=== PATIENT | male | born 1945 | race Caucasian/White ===

== ENCOUNTER → 2017-06-30 14:25 | Outpatient (CLI) | payer MEDICARE, OTHER, SELFPAY ==
[2017-06-30 15:32] LABS: PSA,Total - Annual Screen 1.02 ng/mL (0.00-4.00)
== END ==
PROVIDERS: Family Provider Family Medicine; PCP Family Medicine; Visit Provider Urology
DX: Z12.5 Encounter for screening for malignant neoplasm of prostate (principal)
CPT/HCPCS: 36415; 84153; G0103

== ENCOUNTER → 2017-10-31 08:53 | Outpatient (CLI) | payer MEDICARE, OTHER, SELFPAY ==
[2017-10-31 10:05] LABS: AST(SGOT) 36 U/L (15-37); Alanine Aminotransfer ALT/SGPT 41 U/L (16-61); Albumin, Serum 3.8 g/dL (3.2-5.0); Alkaline Phosphatase 71 U/L (45-117); Bilirubin, Direct 0.21 mg/dL (0.00-0.30); Cholesterol 149 mg/dL (200); Globulin 3.3 g/dL (2.2-4.2); High Density Lipoprotein 45 mg/dL; Protein, Total 7.1 g/dL (6.4-8.2); Triglycerides 84 mg/dL; Very Low Density Lipoprotein 17 mg/dL (5-40)
== END ==
PROVIDERS: Family Provider Family Medicine; PCP Family Medicine; Visit Provider Internal Medicine Cardiovascular Disease
DX: E78.5 Hyperlipidemia, unspecified (principal); Z79.899 Other long term (current) drug therapy
CPT/HCPCS: 36415; 80061; 80076

== ENCOUNTER → 2018-05-01 10:01 | Outpatient (CLI) | payer MEDICARE, OTHER, SELFPAY ==
[2018-03-29 13:53] VITALS: BMI 24.0
[2018-05-01 11:38] LABS: AST(SGOT) 34 U/L (15-37); Alanine Aminotransfer ALT/SGPT 40 U/L (16-61); Albumin, Serum 3.9 g/dL (3.2-5.0); Alkaline Phosphatase 78 U/L (45-117); Bilirubin, Direct 0.32 mg/dL (0.00-0.30); Cholesterol 143 mg/dL (200); Globulin 3.1 g/dL (2.2-4.2); High Density Lipoprotein 45 mg/dL; Triglycerides 94 mg/dL; Very Low Density Lipoprotein 19 mg/dL (5-40)
== END ==
PROVIDERS: Family Provider Family Medicine; PCP Family Medicine; Referring Provider Internal Medicine Cardiovascular Disease; Visit Provider Internal Medicine Cardiovascular Disease
DX: E78.5 Hyperlipidemia, unspecified (principal)
CPT/HCPCS: 36415; 80061; 80076

== ENCOUNTER → 2018-08-11 10:06 | Outpatient (CLI) | payer MEDICARE, OTHER, SELFPAY ==
[2018-06-04 09:50] VITALS: BMI 24.0
--- NOTE | 2018-08-11 10:09 | US_ITS ---
STUDY: THYROID ULTRASOUND REASON FOR EXAM: Male, 73 years old. Goiter TECHNIQUE: Ultrasound evaluation of the thyroid was performed with real-time and static veloz-scale imaging. COMPARISON: None. FINDINGS: RIGHT LOBE: The right lobe of the thyroid gland measures 5.1 x 1.7 x 1.1 cm. There is a homogeneous echotexture. There are 2 complex nodules, one in the upper pole measuring 1.2 x 1.0 x 0.7 cm and a second one in the lower pole measuring 6 x 4 x 4 mm. LEFT LOBE: The left lobe of the thyroid gland measures 5.2 x 1.5 x 1.5 cm. There is a homogeneous echotexture. At least 2 complex midpole nodules, largest one measuring 1.4 x 1.1 x 1.2 cm. ISTHMUS: The isthmus measures 2 mm. The regional lymph nodes are normal. US/Thyroid IMPRESSION: Slightly enlarged thyroid with several small complex nodules. Electronically Signed: Johnnie Lujan DO at 11:35 EDT Tel , Service support ,
== END ==
PROVIDERS: Family Provider Family Medicine; PCP Family Medicine; Referring Provider Internal Medicine Endocrinology, Diabetes & Metabolism; Visit Provider Internal Medicine Endocrinology, Diabetes & Metabolism
DX: E04.2 Nontoxic multinodular goiter (principal)
CPT/HCPCS: 76536

== ENCOUNTER → 2018-11-04 16:14 | Outpatient (CLI) | payer MEDICARE, OTHER, SELFPAY ==
[2018-11-04 15:34] VITALS: BMI 24.0
--- NOTE | 2018-11-04 16:16 | RAD_ITS ---
STUDY: X-RAY - CERVICAL SPINE REASON FOR EXAM: Male, 73 years old. Neck pain. TECHNIQUE: 3 view(s) of the cervical spine were obtained. COMPARISON: None FINDINGS: Normal anterior atlantoaxial articulation. Normal odontoid process. There is straightening of the normal cervical lordosis. There is multi-level endplate spondylosis. There is multi-level degenerative disc disease with multilevel disc space narrowing. The soft tissue structures are unremarkable. RAD/Cerv Spine 2 or 3 Views IMPRESSION: Multilevel degenerative changes. No definite acute abnormalities. Electronically Signed: Kalia Skinner MD at 19:33 EDT , Service support ,
== END ==
PROVIDERS: Family Provider Family Medicine; PCP Family Medicine; Referring Provider Family Medicine; Visit Provider Family Medicine
DX: M54.2 Cervicalgia (principal)
CPT/HCPCS: 72040

== ENCOUNTER → 2018-12-14 16:16 | Outpatient (CLI) | payer MEDICARE, OTHER, SELFPAY ==
[2018-11-04 15:34] VITALS: BMI 24.0
--- NOTE | 2018-12-14 16:17 | MRI_ITS ---
STUDY: MRI CERVICAL SPINE WITHOUT CONTRAST REASON FOR EXAM: Male, 73 years old. Neck pain TECHNIQUE: Standardized fat and water weighted pulse sequences were obtained in the sagittal and axial planes. COMPARISON: None FINDINGS: Examination is mildly technically suboptimal. Assessment of canal contents is fully diagnostic. Assessment of foraminal patency is compromised. Craniocervical junction and cervical spine are intact and aligned. Marrow is normal with superimposed mild subchondral expected age-related degenerative change. Paraspinous soft tissues are normal. C2-C3 has patent canal and foramina. C3-C4 disc endplate osteophytes moderately compresses the spinal cord. There is likely bilateral moderate to severe foraminal stenosis. C4-C5 disc endplate osteophyte mildly compresses the spinal cord. There is presumably severe left and moderate right foraminal stenosis. C5-C6 disc endplate osteophyte moderately compresses the spinal cord. There is moderate bilateral foraminal stenosis. C6-C7 disc endplate osteophyte moderately compresses the spinal cord. There is moderate right and [id number] left foraminal stenosis. C7-T1 canal is patent. There is moderate left foraminal stenosis with patent right foramen. Spinal cord is flattened at the compressing levels with possibly mild cortical volume loss. Cord signal is mildly heterogeneously increased on T2/STIR. MRI/Spine Cervical (Routine) IMPRESSION: 1. Multilevel moderate spondylotic cord compression. Neurosurgical referral is advised. Electronically Signed: Jourdan Cervantes, at 18:56 EDT Tel , Service support ,
--- NOTE | 2018-12-14 16:17 | MRI_ITS ---
STUDY: MRI THORACIC SPINE WITHOUT CONTRAST REASON FOR EXAM: Male, 73 years old. Cord compression TECHNIQUE: Standardized fat and water weighted pulse sequences were obtained in the sagittal and axial planes. COMPARISON: None. FINDINGS: Thoracic spine is intact and aligned with normal marrow. There are scattered benign hemangiomata. Paraspinous soft tissues are normal. Spinal canal is widely patent at all levels. There are multilevel disc degenerative changes, age-appropriate, with partial effacement of the ventral CSF without circumferential cord compression. Dorsal CSF is plentiful. Spinal cord is normal in size and signal with minor ventral flattening impressions.. Epidural space is unremarkable. MRI/Spine Thoracic (Routine) IMPRESSION: 1. Widely patent thecal sac, no circumferential cord compression. 2. Age-appropriate degenerative change. Electronically Signed: Jourdan Cervantes, at 18:41 EDT Tel , Service support ,
== END ==
PROVIDERS: Family Provider Family Medicine; PCP Family Medicine; Referring Provider Family Medicine; Visit Provider Family Medicine
DX: M54.2 Cervicalgia (principal)
CPT/HCPCS: 72141; 72146

== ENCOUNTER → 2019-01-16 08:43 | Outpatient (CLI) | payer MEDICARE, OTHER, SELFPAY ==
[2018-11-04 15:34] VITALS: BMI 24.0
[2019-01-16 10:48] LABS: AST(SGOT) 38 U/L (15-37); Alanine Aminotransfer ALT/SGPT 42 U/L (16-61); Albumin, Serum 3.8 g/dL (3.2-5.0); Alkaline Phosphatase 82 U/L (45-117); Cholesterol 145 mg/dL (200); Globulin 3.3 g/dL (2.2-4.2); High Density Lipoprotein 48 mg/dL; Protein, Total 7.1 g/dL (6.4-8.2); Triglycerides 46 mg/dL; Very Low Density Lipoprotein 9 mg/dL (5-40)
== END ==
PROVIDERS: Family Provider Family Medicine; PCP Family Medicine; Referring Provider Nurse Practitioner Family; Visit Provider Nurse Practitioner Family
DX: E78.5 Hyperlipidemia, unspecified (principal)
CPT/HCPCS: 36415; 80061; 80076

== ENCOUNTER → 2019-06-15 11:22 | Outpatient (CLI) | payer MEDICARE, OTHER, SELFPAY ==
[2019-06-15 10:56] VITALS: BMI 24.0
[2019-06-15 11:50] LABS: Bacteria 0 SEEN /hpf (None Seen); Mucous, Urine 0 SEEN /hpf (<or=2+)
[2019-06-15 12:52] LABS: Color, Urine Yellow (Yellow); Glucose, Dipstick Normal (Normal); Ketone-Dipstick Negative (Negative); Leukocyte Esterase-Dipstick Negative /ul (Negative); Nitrite-Dipstick Negative (Negative); Occult Blood-Urine Negative /ul (Negative); Protein-Dipstick Negative (Negative); Urine Bilirubin Dipstick Negative (Negative); Urine Clarity Clear (Clear); Urine Urobilinogen 1 mg/dl (Normal)
[2019-06-15 13:07] LABS: Red Blood Cells-Urine 0-5 SEEN /hpf (0-5); Squamous Epithelial Cells - UA 0-5 SEEN /hpf (0-5); White Blood Cells 0-5 SEEN /hpf (0-5)
== END ==
PROVIDERS: PCP Family Medicine; Referring Provider Family Medicine; Visit Provider Family Medicine
DX: R10.9 Unspecified abdominal pain (principal)
CPT/HCPCS: 81001

== ENCOUNTER → 2019-06-17 12:09 | Outpatient (CLI) | payer MEDICARE, OTHER, SELFPAY ==
[2019-06-15 10:56] VITALS: BMI 24.0
--- NOTE | 2019-06-17 12:10 | US_ITS ---
STUDY: RENAL ULTRASOUND - COMPLETE REASON FOR EXAM: Male, 74 years old. Right FLANK PAIN TECHNIQUE: Ultrasound evaluation of the kidneys was performed with real-time and static stanley-scale imaging. COMPARISON: None. FINDINGS: RIGHT KIDNEY: Normal location of the right kidney, which is normal in size. The right kidney measures 10.9 x 4.6 x 4.3 cm. There is a normal cortex of the right kidney. The renal cortex measures 1.8 cm. Multiple renal cysts are seen as much as 8 mm. Possible 3 mm nonobstructing stone. There is no right hydronephrosis. DISTAL RIGHT URETER: There is non-visualization of the distal right ureter. There is no demonstrated right ureterovesical junction calculus. There is a visualized right ureteral jet. LEFT KIDNEY: Normal location of the left kidney, which is normal in size. The left kidney measures 11.2 x 4.2 x 5.1 cm. There is a normal cortex of the left kidney. The renal cortex measures 1.3 cm. Multiple renal cysts are seen measuring as much as 1.1 cm. There are no left renal calculi. There is no left hydronephrosis. DISTAL LEFT URETER: There is non-visualization of the distal left ureter. There is no demonstrated left ureterovesical junction calculus. There is a visualized left ureteral jet. BLADDER: The distended urinary bladder has a volume of 384 ml. . There is a normal wall thickness of the distended urinary bladder. There is no demonstrated mass within the urinary bladder. There are no demonstrated bladder calculi. US/Kidney and Bladder IMPRESSION: No acute abnormalities. Multiple small cysts. Electronically Signed: Kalia Skinner MD at 18:06 EST , Service support ,
== END ==
PROVIDERS: PCP Family Medicine; Referring Provider Family Medicine; Visit Provider Family Medicine
DX: R10.9 Unspecified abdominal pain (principal)
CPT/HCPCS: 76770

== ENCOUNTER → 2019-06-24 15:12 | Outpatient (CLI) | payer MEDICARE, OTHER, SELFPAY ==
[2019-06-24 14:35] VITALS: BMI 24.3
--- NOTE | 2019-06-24 15:13 | RAD_ITS ---
STUDY: X-RAY - THORACIC SPINE REASON FOR EXAM: Male, 74 years old. PAIN AROUND T10 AND TO THE RIGHT SIDE TECHNIQUE: 3 view(s) of the thoracic spine were obtained. COMPARISON: None. FINDINGS: Normal kyphosis of the thoracic spine. There is no substantial scoliosis. There is multilevel endplate spondylosis of the thoracic vertebrae. There is multilevel disc space narrowing of the thoracic spine. The soft tissue structures are unremarkable. RAD/Thoracic Spine 3 Views IMPRESSION: Multilevel degenerative changes. Electronically Signed: Angela White MD at 22:32 EST Tel , Service support ,
== END ==
PROVIDERS: PCP Family Medicine; Referring Provider Family Medicine; Visit Provider Family Medicine
DX: R10.9 Unspecified abdominal pain (principal)
CPT/HCPCS: 72072

== ENCOUNTER → 2019-07-30 08:48 | Outpatient (CLI) | payer MEDICARE, OTHER, SELFPAY ==
[2019-07-08 16:06] VITALS: BMI 24.0
[2019-07-30 12:38] LABS: AST(SGOT) 37 U/L (15-37); Alanine Aminotransfer ALT/SGPT 37 U/L (16-61); Albumin, Serum 3.9 g/dL (3.2-5.0); Alkaline Phosphatase 71 U/L (45-117); Bilirubin, Direct 0.23 mg/dL (0.00-0.30); Cholesterol 135 mg/dL (200); Globulin 2.8 g/dL (2.2-4.2); High Density Lipoprotein 48 mg/dL; Protein, Total 6.7 g/dL (6.4-8.2); Triglycerides 50 mg/dL; Very Low Density Lipoprotein 10 mg/dL (5-40)
[2019-07-30 12:46] LABS: PSA,Total - Annual Screen 1.03 ng/mL (0.00-4.00)
== END ==
PROVIDERS: Nurse Practitioner Family; PCP Family Medicine; Visit Provider Urology
DX: Z12.5 Encounter for screening for malignant neoplasm of prostate (principal); E78.00 Pure hypercholesterolemia, unspecified; E78.5 Hyperlipidemia, unspecified
CPT/HCPCS: 36415; 80061; 80076; 84153; G0103

== ENCOUNTER → 2019-10-22 13:29 | Outpatient (CLI) | payer MEDICARE, OTHER, SELFPAY ==
[2019-10-14 16:11] VITALS: BMI 24.5
--- NOTE | 2019-10-22 13:30 | MRI_ITS ---
STUDY: MRI RIGHT KNEE REASON FOR EXAM: Right knee pain, especially at the lateral and posterior aspect, meniscal repair 8 years ago. TECHNIQUE: Standardized fat and water weighted pulse sequences were obtained in all 3 orthogonal planes. COMPARISON: MRI report 06/25/2008. FINDINGS: There is a partial medial meniscectomy. There is an oblique band of signal in the posterior horn of the medial meniscus extending to the superior and inferior articular surfaces (proton-density sagittal images 30-32) and a small complex signal alteration of the body of the medial meniscus (proton-density coronal images 13-15), either recurrent medial meniscal tear or scarring. Normal hyaline cartilage of the medial femorotibial compartment. Normal medial femoral condyle and tibial plateau. Normal medial collateral ligamentous complex (MCL). Normal distal semimembranosus, gracilis and semitendinosus tendons. There is attrition of the free margin of the posterior horn of the lateral meniscus and to lesser extent the body of the lateral meniscus consistent with partial lateral meniscectomy without discrete recurrent lateral meniscal tear. There is arthrosis of the lateral femorotibial compartment with small marginal osteophytes of the lateral femoral condyle and partial-thickness chondral loss of the posterior aspect of the compartment (T2 sagittal image 6). Normal lateral femoral condyle and tibial plateau. Normal proximal tibiofibular articulation. Normal lateral collateral (fibular) ligament. Normal popliteus tendon. Normal biceps femoris tendon. There is intrasubstance mucoid degeneration of the anterior cruciate ligament (T2 sagittal images 12, 13). Normal posterior cruciate ligament (PCL). Normal congruent patellofemoral articulation. There is low-grade chondromalacia of the lateral patellar facet (T2 sagittal image 12). Normal medial and lateral patellar retinaculum. Normal visualized quadriceps tendon. Normal patellar tendon. There is postoperative scarring in Hoffa''s fat pad. There is a small joint effusion. There is a small popliteal cyst (T2 sagittal images 15-21). There is a small enchondroma in the medial aspect of the distal femoral metaphysis (T2 coronal images 16, 17) measuring 1 cm in length. MRI/Lower Ext Joint Only (Routine) IMPRESSION: Partial medial meniscectomy with signal alteration of the posterior horn and body of the medial meniscus, either scarring or recurrent medial meniscal tear. Partial lateral meniscectomy without demonstrated recurrent lateral meniscal tear. 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 Small joint effusion. Small popliteal cyst. Small enchondroma in the distal femur. Electronically Signed: Soy Barroso MD at 15:01 EDT Tel , Service support ,
== END ==
PROVIDERS: PCP Family Medicine; Visit Provider Family Medicine
DX: M25.561 Pain in right knee (principal)
CPT/HCPCS: 73721

== ENCOUNTER 2019-11-08 16:42 | Emergency (ER) | payer MEDICARE, OTHER, SELFPAY ==
[2019-10-14 16:11] VITALS: BMI 24.5
[2019-11-08 16:44] VITALS: BP 161/94; PULSE 69; RESP 18; TEMP 36.8; O2SAT 98; BMI 23.7
--- NOTE | 2019-11-08 16:57 | ED.DCSUM_ITS ---
- ER Visit Summary Date of Service: 11/08/19 Chief Complaint: Left index finger laceration History of Present Illness: The patient is a 74 M who presents with a laceration to his left index finger that occurred today. Patient states he was helping his son move a radial arm saw when the blade cut his finger. The power was not on and the saw was unplugged. Patient denies any paresthesias or weakness. Patient is unsure of his last tetanus. Patient states the bleeding has been persistent. Patient denies any other injuries. Physical Examination: Vital signs are stable. Patient is afebrile. Patient is in no acute distress. Skin is warm and dry. There is a 2 cm full-thickness linear laceration over the ulnar aspect of the proximal phalanx of the left index finger. There is moderate gapping of the wound margins. There are no foreign bodies noted. There is no bony crepitance, step-off, or deformity. There is good range of motion of the MP, PIP, and DIP joints of the left index finger. Strength is 5/5 in flexion and extension of the MP, PIP, and DIP joints. Capillary refill is less than 2 seconds in all digits. Sensation was intact to light touch in all digits. Emergency Department Course and Treatment: The wound was cleaned and irrigated with copious amounts of normal saline. The wound was anesthetized with 1% plain lidocaine via digital block. The wound was closed with 3 simple interrupted #4 -0 nylon sutures under sterile technique. Patient tolerated the procedure well. Bacitracin dressing was applied. Patient was given a tetanus booster. Patient was instructed to keep the wound clean and dry. Patient was instructed to follow-up with his primary care physician in 7 days for wound recheck and suture removal. Patient understood and was agreeable with the plan. All questions were answered. Disposition: Discharge home Impression: Left index finger laceration This note was generated with [employer] dictation software. It may contain incorrect words, spelling, and punctuation that were not noted in review of the chart prior to signing ED Disposition - Plan for ED Patient: Disposition: Home or Assisted Living Diagnosis: Laceration of left index finger w/o foreign body w/o damage to nail Instructions: ED Laceration Ext Sutr Stap Tape Referrals: Azam Haynes DO [Primary Care Provider] - 7 Days for suture removal
[2019-11-08] MEDS: Diphth,Pertuss(Acell),Tet Vac 0.5 ML Vial IM (18:03)
[2019-11-08] MEDS: BACITRACIN 15 GM Tube 1 APPLIC TOPICAL (18:04)
[2019-11-08 18:10] VITALS: BP 158/60; PULSE 77; RESP 16; O2SAT 98
== END 2019-11-08 18:49 | disposition home or self-care (01) ==
PROVIDERS: Emergency Provider Emergency Medicine; PCP Family Medicine
DX: S61.211A Laceration without foreign body of left index finger without damage to nail, initial encounter (principal); Z23 Encounter for immunization; Y92.9 Unspecified place or not applicable; Y99.9 Unspecified external cause status; W29.3XXA Contact with powered garden and outdoor hand tools and machinery, initial encounter; M54.2 Cervicalgia; G89.29 Other chronic pain; I25.10 Atherosclerotic heart disease of native coronary artery without angina pectoris; I10 Essential (primary) hypertension; Z95.5 Presence of coronary angioplasty implant and graft
CPT/HCPCS: 12001; 90471; 90715; 99283; A4216

== ENCOUNTER → 2019-11-15 13:16 | Outpatient (CLI) | payer MEDICARE, OTHER, SELFPAY ==
[2019-11-15 12:48] VITALS: BMI 23.7
--- NOTE | 2019-11-15 13:17 | RAD_ITS ---
STUDY: X-RAY - RIGHT KNEE REASON FOR EXAM: Male, 74 years old. pain, NKI TECHNIQUE: 4 view(s) of the knee. COMPARISON: None. FINDINGS: Normal visualized distal femur. There is an old healed fracture of the proximal fibular shaft. Normal proximal tibiofibular articulation. There is mild degenerative arthrosis of the medial femorotibial compartment. There is mild degenerative arthrosis of the lateral femorotibial compartment. There is mild degenerative arthrosis of the patellofemoral articulation. The soft tissue structures are unremarkable. RAD/Knee 4 or More Views IMPRESSION: Tricompartment mild degenerative changes of the right knee. Old healed fracture of the proximal fibular shaft. There is no evidence of acute fracture, dislocation, or free intra-articular calcifications. Electronically Signed: Jewel Sandoval MD at 23:50 EDT , Service support ,
== END ==
PROVIDERS: PCP Family Medicine; Referring Provider Orthopaedic Surgery; Visit Provider Orthopaedic Surgery
DX: M25.561 Pain in right knee (principal)
CPT/HCPCS: 73564

== ENCOUNTER → 2020-03-28 12:14 | Outpatient (CLI) | payer MEDICARE, OTHER, SELFPAY ==
[2020-03-17 11:27] VITALS: BMI 23.7
--- NOTE | 2020-03-28 12:15 | MRI_ITS ---
STUDY: MRI CERVICAL SPINE WITHOUT CONTRAST REASON FOR EXAM: Male, 75 years old. Right-sided neck pain TECHNIQUE: Standardized fat and water weighted pulse sequences were obtained in the sagittal and axial planes. COMPARISON: 17 March 2020 plain films FINDINGS: Examination is mildly technically suboptimal. Accuracy of foraminal stenosis evaluation is suboptimal. Craniocervical junction and cervical spine are intact and aligned with normal marrow and paraspinal soft tissues. There is multilevel disc and endplate and facet joint degeneration, age-appropriate. C2-C3 has patent canal and foramina. C3-C4 has uncinate and facet hypertrophy with mild cord to moderate compression and severe bilateral foraminal stenosis. C4-C5 has uncinate and facet hypertrophy with mild to moderate spondylotic cord compression. There is severe left and moderate right foraminal stenosis. C5-C6 has uncinate and facet hypertrophy and mild to moderate spondylotic cord compression. There is severe left and moderate right foraminal stenosis. C6-C7 has uncinate and facet hypertrophy and disc endplate osteophyte with mild to moderate cord compression. There is severe right and moderate left foraminal stenosis. C7-T1 has uncinate and facet hypertrophy. Canal is patent. There is moderate to severe left and mild right foraminal stenosis. T1-T2 has patent canal. The exit changes in the facets produce moderate left foraminal stenosis with patent right foramen. Spinal cord is flattened at the compressing levels, with mild diffuse cortical volume loss without myelomalacia. MRI/Spine Cervical (Routine) IMPRESSION: 1. Multilevel mild to moderate spondylotic cord compression. Neurosurgical referral is advised. 2. Bilateral multilevel severe foraminal stenoses. Electronically Signed: Jourdan Cervantes, at 17:32 EST Tel , Service support ,
== END ==
PROVIDERS: PCP Family Medicine; Referring Provider Orthopaedic Surgery; Visit Provider Orthopaedic Surgery
DX: M48.02 Spinal stenosis, cervical region (principal)
CPT/HCPCS: 72141

== ENCOUNTER → 2020-05-02 10:25 | Outpatient (CLI) | payer MEDICARE, OTHER, SELFPAY | PROVIDERS: PCP Family Medicine; Referring Provider Physician Assistant Surgical; Visit Provider Physician Assistant Surgical | DX: Z20.828 Contact with and (suspected) exposure to other viral communicable diseases (principal); R53.83 Other fatigue | CPT/HCPCS: 87635; U0003 ==

== ENCOUNTER 2020-07-03 21:17 | Observation (INO) | payer MEDICARE, OTHER, SELFPAY ==
[2020-07-03 21:18] VITALS: BP 197/104; PULSE 70; RESP 16; TEMP 36.6; O2SAT 98; BMI 24.1
--- NOTE | 2020-07-03 21:45 | ED.DCSUM_ITS ---
History of Present Illness Chief Complaint: Chest Pain Narrative: Patient awoke with chest pain about an hour ago it was across his chest, it was achy and pressure-like he has a history of cardiac disease. He has no pleuritic component. He has no tearing sensation although the pain did radiate somewhat to his back although now is gone. No abdominal pain. No fever or chills. Past medical history: Hypertension, hypercholesterolemia, coronary artery disease Medications: Reviewed Social history: History of smoking but has not smoked in over 40 years Review of systems: All systems negative except as indicated General: Denies: Fever Eyes: Denies: Visual changes - bilaterally ENT: Denies: Rhinorrhea, Sore throat Cardiovascular: Chest pain as in HPI Respiratory: Denies: Dyspnea, Cough Gastrointestinal: Denies: Abdominal pain, Nausea, Vomiting Genitourinary: Denies: Dysuria Musculoskeletal: Denies: Myalgias Skin: Denies: Rash Neurological: Denies: Headache, no focal weakness Psych: Reports: negative Hematologic: Denies: Easy bruising, Easy bleeding Physical exam General: Well nourished, Well developed, No Acute Distress Head: Normocephalic, Atraumatic Eyes: Conjunctiva not pale ENT: Moist mucous membranes Neck: Supple, Nontender, No lymphadenopathy Cardiovascular: Regular rate, Regular rhythm Respiratory: No distress, CTA bilaterally Abdomen: Soft, Nontender, Nondistended Back: Nontender, Normal Inspection. Negative for: CVA tenderness Extremities: Nontender, No edema Skin: Normal color, No rash Neurological: Alert, Normal Strength, Normal Sensation Psychological: Normal affect Past Medical History - Allergies and Home Meds Allergies/Adverse Reactions: Allergies niacin [From Niaspan Extended-Release] Allergy (Verified 07/03/20 21:22) Extreme Itching cyclobenzaprine Adverse Reaction (Unknown, Verified 07/03/20 21:22) Heart feels like wants to stop Generic only, can take Name Brand Primary Care Physician: Azam Haynes DO [Primary Care Provider] - Surgical History: - - Cardiac stent placement approximately 5 years previous, knee arthroscopy, facial surgery secondary to benign mass, shoulder surgery Smoking Status: Former smoker - Family History Maternal Family History: Family History (Last Reviewed 03/17/20 @ 11:31 by Berna Munguia) Father CAD (coronary artery disease) Mother Heart disease Sister Breast cancer Colon cancer Brother Colon cancer Family History: Reports: Diabetes Paternal Family History: Family History (Last Reviewed 03/17/20 @ 11:31 by Berna Munguia) Father CAD (coronary artery disease) Mother Heart disease Sister Breast cancer Colon cancer Brother Colon cancer Family History: Reports: Heart Disease Sibling Family History: Family History (Last Reviewed 03/17/20 @ 11:31 by Berna Munguia) Father CAD (coronary artery disease) Mother Heart disease Sister Breast cancer Colon cancer Brother Colon cancer Family History: Reports: Cancer Physical Exam Vital Signs/Narrative: Vital Signs Temp Pulse Resp BP Pulse Ox 07/03/20 21:18 97.8 F 70 16 197/104 H 98 Diagnostic/Tx/Re-eval Chest X-Ray - ED: 1 View, Read by ED Physician, Read by Radiologist, Normal, Heart, Lungs - Rhythm Strip Rhythm Strip: Sinus Rhythm Rate: 70 Ectopy: None - EKG Initial EKG Interpretation: - - Sinus rhythm with rate 70. Normal MD and QTc intervals. No ischemic changes. Interpreted by emergency doctor - Medical Decision Making Patient has somewhat concerning chest pain with a history of stents and history of cardiac disease. I will admit. ED Disposition - Plan for ED Patient: Disposition: Acute Care [facility] Diagnosis: Chest pain Referrals: Azam Haynes DO [Primary Care Provider] -
--- NOTE | 2020-07-03 21:45 | RAD_ITS ---
HISTORY: chest pain ADDITIONAL HISTORY: None provided. EXAMINATION/TECHNIQUE: XR Chest 1 View AP/PA Number of images including paperwork: 1 COMPARISON: 02/05/2014 FINDINGS: LUNGS AND PLEURA: No consolidation, mass or pleural effusion. CARDIAC SILHOUETTE: Unremarkable. MEDIASTINUM AND ABBEY: Aortic tortuosity. UPPER ABDOMEN: Unremarkable. SKELETON AND SOFT TISSUES: No acute skeletal findings. Degenerative changes. OTHER DEVICES AND HARDWARE: None. RAD/Chest 1 View (Portable) IMPRESSION: No acute cardiopulmonary abnormality. at 2214 Reported and signed by: Roxanne Winn MD Electronically Signed: Roxanne Winn MD at 22:14 EST Tel , Service support ,
--- NOTE | 2020-07-03 21:45 | EKG12_ITS ---
Test Reason : CP Blood Pressure : / mmHG Vent. Rate : 070 BPM Atrial Rate : 070 BPM P-R Int : 206 ms QRS Dur : 086 ms QT Int : 386 ms P-R-T Axes : 061 058 051 degrees QTc Int : 416 ms Normal sinus rhythm Normal ECG Confirmed by ANDRÉS BARRETO, VIJI ([id number]), production editor LENNOX JOSÉ ([id number]) on 07/04/2020 10:52:00 AM Referred By: CESARIO Confirmed By:VIJI BOWEN MD
[2020-07-03 21:50] VITALS: O2SAT 97
[2020-07-03 21:52] LABS: Absolute Lymphocyte Count 2.74 X10^3/uL (0.83-4.51); Absolute Neutrophil Count 3.6 X10^3/uL (2.0-7.7); Basophil# 0.05 X10^3/uL; Basophil% 0.7 % (0-1); Eosinophil# 0.31 X10^3/uL; Eosinophils% 4.3 % (0-5); Hematocrit 47.7 % (40-54); Lymphocyte # 2.74 X10^3/ul (4.0); Lymphocyte % 37.8 % (19-41); Mean Corp Hgb Conc 33.5 g/dL (32-36); Mean Corpuscular Hgb 30.7 pg (27.0-32.0); Mean Corpuscular Volume 91.4 fL (80-94); Monocyte# 0.54 X10^3/uL; Monocyte% 7.4 % (0-10); NRBC Flagged by Analyzer 0 % (0-5); Neutrophil % 49.7 % (47-70); Platelet Count 203 K/mm3 (150-450); RBC Distribution Width CV 13.2 % (11.6-14.6); RBC Distribution Width SD 44.2 fl (35.1-43.9); Red Blood Count 5.22 M/mm3 (4.6-6.2); White Blood Count 7.3 K/mm3 (4.4-11.0)
[2020-07-03] MEDS: Aspirin 81 MG TAB.CHEW 324 MG PO (21:55)
[2020-07-03 22:01] VITALS: BP 179/82; PULSE 62; RESP 10; O2SAT 96
[2020-07-03 22:08] LABS: Anion Gap 9 (5-15); BUN 17 mg/dL (7-18); BUN/Creat Ratio 17.5 RATIO (10-20); Chloride 109 mmol/L (98-107); Creatinine, Serum 0.97 mg/dL (0.70-1.30); EST Glomerular Filtration Rate 81 mL/min (>60); Est Glom Filt Rate - Afr Amer 97 mL/min (>60); Estimated Creatinine Clearance 74.44 ml/min; Glucose 116 mg/dL (74-106); Potassium 3.7 mmol/L (3.5-5.1); Sodium Level 143 mmol/L (136-145)
[2020-07-03 22:28] VITALS: BP 161/77; PULSE 58; RESP 12; O2SAT 99
[2020-07-03 22:53] VITALS: BP 149/86; PULSE 60; RESP 11; O2SAT 98
--- NOTE | 2020-07-03 23:32 | HP.PCM_ITS ---
Problem List (1) Chest pain Status: Acute (2) Seborrheic keratoses Status: Chronic (3) Cervical disc disease Status: Chronic (4) Atherosclerosis of coronary artery of [place] heart without angina pectoris Status: Chronic Qualifiers: Coronary Disease-Associated Artery/Lesion type: [place] artery Qualified Code(s): I25.10 - Atherosclerotic heart disease of [place] coronary artery without angina pectoris (5) History of coronary artery stent placement Status: Resolved Comment: [id number] LAD and POBA-D1 05/16/2010 (6) Nonrheumatic mitral (valve) prolapse Status: Chronic (7) Nonrheumatic mitral (valve) insufficiency Status: Chronic (8) Essential (primary) hypertension Status: Chronic (9) Hyperlipidemia Status: Chronic Qualifiers: Hyperlipidemia type: pure hypercholesterolemia Qualified Code(s): E78.00 - Pure hypercholesterolemia, unspecified; E78.00 - Pure hypercholesterolemia, unspecified; E78.00 - Pure hypercholesterolemia, unspecified; E78.0 - Pure hypercholesterolemia History of Present Illness Date of Admission: 07/03/20 Chief Complaint: chest pain The patient is a 75 year old M with a significant history of hypertension; hyperlipidemia; CAD status post stent who presents to the emergency department with excruciating chest pain that started on the same day of presentation. His chest pain spun across his entire chest. His chest pain radiated to in between his shoulder blades. His chest pain started an hour before presentation and woke him up from the sleep. He described chest pain as someone sitting on his chest. He denies any ameliorating or aggravating factors. He denies any nausea, vomiting, diaphoresis or shortness of breath. He reports fatigue. Past Medical History Past Medical History (Chronic Problems): Chronic Problems (Last Reviewed 07/03/20 @ 23:[address] Cam Duran MD) Seborrheic keratoses (Chronic) Cervical disc disease (Chronic) Atherosclerosis of coronary artery of [place] heart without angina pectoris (Chronic) Nonrheumatic mitral (valve) prolapse (Chronic) Nonrheumatic mitral (valve) insufficiency (Chronic) Essential (primary) hypertension (Chronic) Hyperlipidemia (Chronic) Medical History: Medical History (Last Reviewed 07/04/20 @ 03:[address] 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 Chronic back pain M54.9, G89.29 GERD (gastroesophageal reflux disease) K21.9 Obstructive sleep apnea G47.33 Painful neck M54.2 Swallowing problem R13.10 Allergies niacin [From Niaspan Extended-Release] Allergy (Verified 07/03/20 21:22) Extreme Itching cyclobenzaprine Adverse Reaction (Unknown, Verified 07/03/20 21:22) Heart feels like wants to stop Generic only, can take Name Brand Home Medications: Ambulatory Orders Medication Instructions Recorded Aspirin [Aspirin, Baby] 81 mg PO DAILY 03/25/13 Coenzyme Q10/l-Carnitine [Q-Sorb 1 ea PO DAILY 03/25/13 Co Q-10 Plus 100 mg] Multivitamins,Therapeutic 1 tab PO DAILY 03/25/13 [Multivitamin] cholecalciferol (vitamin D3) 50 3,000 unit PO DAILY 08/20/18 mcg (2,000 unit) capsule omega-3 fatty acids 1,000 mg 1,000 mg PO DAILY 08/20/18 capsule atorvastatin 80 mg tablet 80 mg PO QHS #90 tab 08/17/19 clopidogrel 75 mg tablet 75 mg PO DAILY #90 tab 08/17/19 lisinopril 5 mg tablet 5 mg PO DAILY #90 tab 08/17/19 metoprolol tartrate 50 mg tablet 50 mg PO BID #180 tab 08/17/19 Surgical History: Surgical History (Last Reviewed 07/04/20 @ 03:[address] 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 Cam Duran MD) Father CAD (coronary artery disease) Mother Heart disease Sister Breast cancer Colon cancer Brother Colon cancer History Items: Diabetes Paternal Family History: Family History (Last Reviewed 07/04/20 @ 03:[address] Cam Duran MD) Father CAD (coronary artery disease) Mother Heart disease Sister Breast cancer Colon cancer Brother Colon cancer History Items: Heart Disease Sibling Family History: Family History (Last Reviewed 07/04/20 @ 03:[address] Cam Duran MD) Father CAD (coronary artery disease) Mother Heart disease Sister Breast cancer Colon cancer Brother Colon cancer History Items: Cancer Review of Systems Constitutional: Reports: Fatigue. Denies: Chills, Fever, Weight Change HEENT: Denies: Head Aches, Sinus Congestion, Sinus Drainage Cardiovascular: Reports: Chest Pain. Denies: Palpitations Respiratory: Denies: Cough, Shortness of breath at rest, Sputum production Gastrointestinal: Denies: Abdominal Pain, Nausea, Vomiting Genitourinary: Denies: Dysuria Musculoskeletal: Denies: Joint Pain, Joint Tenderness Skin: Denies: Rash, Wounds Neurological: Denies: Numbness, Tingling, Focal weakness Psychiatric: Denies: Anxiety, Depression, Homicidal Ideations, Suicidal Ideations Hematologic/ Lymphatic: Denies: Easy Bruising, Easy Bleeding VTE Information - Inpt Only VTE Present on Admission: No VTE Mechan Device Prophylaxis: SCD's VTE Pharm Prophylaxis ordered?: No Patient Problems: Active and Suspected Problems (Last Reviewed 07/03/20 @ 23:[address] Cam Duran MD) Chest pain (Acute) - Physical Exam Vitals/I&O's: Vital Signs Temp Pulse Resp BP Pulse Ox 97.8 F 60 11 L 149/86 H 98 07/03/20 21:18 07/03/20 22:53 07/03/20 22:53 07/03/20 22:53 07/03/20 22:53 Oxygen Delivery Method Room Air Weight: 80.8 kg Body Mass Index (BMI) 24.1 General: Alert, Oriented x3, Cooperative HEENT: Atraumatic, PERRLA, EOMI, Normocephalic Neck: Supple, No JVD, Negative Carotid Bruits Lungs: Clear to auscultation, Normal air movement Cardiovascular: Regular rate, Normal S1, Normal S2 Abdomen: Bowel Sounds Present, Soft, Non Tender Extremities: No edema, Capillary Refill Less than 3 Seconds Skin: No rashes, No breakdown Musculoskeletal: No Tenderness to Palpation of Joints or Extremities Neurological: Cranial nerves II-XII grossly intact Psych/Mental Status: Normal Affect, Appropriate Laboratory Results 07/03/20 21:38: WBC 7.3, RBC 5.22, Hgb 16.0, Hct 47.7, MCV 91.4, MCH 30.7, MCHC 33.5, RDW Std Deviation 44.2 H, RDW Coeff of Leeroy 13.2, Plt Count 203, MPV 10.0, Immature Gran % (Auto) 0.100, Neut % (Auto) 49.7, Lymph % (Auto) 37.8, [place] % (Auto) 7.4, Eos % (Auto) 4.3, Baso % (Auto) 0.7, Absolute Neuts (auto) 3.6, Absolute Lymphs (auto) 2.74, Nucleated RBC % 0 07/03/20 21:38: Sodium 143, Potassium 3.7, Chloride 109 H, Carbon Dioxide 25.0, Anion Gap 9, BUN 17, Creatinine 0.97, Estim Creat Clear Calc 74.44, Est GFR (MDRD) Af Amer 97, Est GFR (MDRD) Non-Af 81, BUN/Creatinine Ratio 17.5, Glucose 116 H, Calcium 9.0, Troponin I < 0.015 Assessment/Plan All Active Problems (Last Reviewed 07/03/20 @ 23:[address] Cam Duran MD) Chest pain (Acute) History of coronary artery stent placement (Resolved 05/16/10) Trapezius muscle spasm (Resolved) The patient is a 75 year old M with a significant history of hypertension; hyperlipidemia; CAD status post stent who presents emergency department with excruciating chest pain that started on the same day of presentation. Chest pain Place on a monitored bed at PCU Actual CXR image was independently visualized. No acute cardiopulmonary process was noted. Actual EKG tracing was independently visualized. EKG tracing showed sinus rhythm ASA 81 mg p.o. daily continued. High intensity statin continued. Metoprolol and lisinopril continued SL NTG 0.4 mg prn as needed for chest pain ordered Morphine as needed for pain ordered We will check lipid panel. Initial troponin was negative Serial cardiac enzymes ordered Stat EKG as needed for chest pain Chemical Stress test in the AM if the cardiac enzymes are negative Hypertension Blood pressure is not within goal Lisinopril and metoprolol continued. As needed hydralazine ordered. Trend blood pressure and adjust blood pressure medications. DVT prophylaxis SCD ordered OBSV E&M: 73212 Initial observation care L2
[2020-07-03 23:43] VITALS: BP 156/81; PULSE 60; RESP 17; TEMP 36.6; O2SAT 99
[2020-07-04] VITALS (12 sets, daily range): BP systolic 129–183; BP diastolic 82–90; PULSE 48–80; RESP 16–18; TEMP 36.4–36.8; O2SAT 94–99; BMI 23.3; BMI 23.4
--- NOTE | 2020-07-04 00:03 | EKG12_ITS ---
Test Reason : CP ADMISSION Blood Pressure : / mmHG Vent. Rate : 062 BPM Atrial Rate : 062 BPM P-R Int : 212 ms QRS Dur : 088 ms QT Int : 416 ms P-R-T Axes : 061 056 059 degrees QTc Int : 422 ms Sinus rhythm with 1st degree A-V block Otherwise normal ECG Confirmed by ANDRÉS BARRETO, VIJI ([id number]), managing editor LENNOX JOSÉ ([id number]) on 07/05/2020 9:01:06 AM Referred By: CURT Confirmed By:VIJI BOWEN MD
[2020-07-04] MEDS: Nitroglycerin (INPATIENT USE) 0.4 MG TAB.SUBL SUBLINGUAL (00:26)
[2020-07-04 03:47] LABS: Absolute Lymphocyte Count 2.07 X10^3/uL (0.83-4.51); Absolute Neutrophil Count 4.3 X10^3/uL (2.0-7.7); Basophil# 0.05 X10^3/uL; Basophil% 0.7 % (0-1); Eosinophil# 0.09 X10^3/uL; Eosinophils% 1.3 % (0-5); Hemoglobin 14.2 g/dL (13.0-16.5); Lymphocyte # 2.07 X10^3/ul (4.0); Lymphocyte % 29.6 % (19-41); Mean Corp Hgb Conc 33.8 g/dL (32-36); Mean Corpuscular Hgb 30.8 pg (27.0-32.0); Mean Corpuscular Volume 91.1 fL (80-94); Mean Platelet Vol. 10.2 fl (6.2-12.0); Monocyte# 0.46 X10^3/uL; Monocyte% 6.6 % (0-10); NRBC Flagged by Analyzer 0 % (0-5); Neutrophil # 4.31 X10^3/uL (2.7-7.7); Neutrophil % 61.5 % (47-70); Platelet Count 182 K/mm3 (150-450); RBC Distribution Width CV 13.2 % (11.6-14.6); RBC Distribution Width SD 43.6 fl (35.1-43.9); Red Blood Count 4.61 M/mm3 (4.6-6.2)
[2020-07-04 04:00] LABS: Anion Gap 8 (5-15); BUN 16 mg/dL (7-18); Calcium,Total 8.7 mg/dL (8.5-10.1); Chloride 110 mmol/L (98-107); Cholesterol 123 mg/dL (200); Creatinine, Serum 0.73 mg/dL (0.70-1.30); EST Glomerular Filtration Rate 113 mL/min (>60); Est Glom Filt Rate - Afr Amer 136 mL/min (>60); Estimated Creatinine Clearance 72.21 ml/min; Glucose 111 mg/dL (74-106); High Density Lipoprotein 45 mg/dL; Potassium 3.9 mmol/L (3.5-5.1); Sodium Level 142 mmol/L (136-145); Triglycerides 48 mg/dL; Very Low Density Lipoprotein 10 mg/dL (5-40)
--- NOTE | 2020-07-04 05:55 | EKG12_ITS ---
Test Reason : AM EKG Blood Pressure : / mmHG Vent. Rate : 051 BPM Atrial Rate : 051 BPM P-R Int : 224 ms QRS Dur : 090 ms QT Int : 434 ms P-R-T Axes : 061 052 053 degrees QTc Int : 400 ms Sinus bradycardia with 1st degree A-V block Otherwise normal ECG Confirmed by SOCO BARRETO, SERA ([id number]), photographic editor SKYLER JEFFREY ([id number]) on 07/06/2020 1:22:18 PM Referred By: CURT Confirmed By:SERA WAN MD
[2020-07-04] MEDS: Clopidogrel Bisulfate 75 MG Tablet PO (06:11)
[2020-07-04] MEDS: Lisinopril 5 MG Tablet PO (06:11)
[2020-07-04] MEDS: Aspirin 81 MG TAB.CHEW PO (06:11)
[2020-07-04] MEDS: Metoprolol Tartrate 50 MG Tablet PO (11:13)
[2020-07-04] MEDS: Multivitamins,Therapeutic Tablet 1 TABLET PO (11:14)
--- NOTE | 2020-07-04 11:43 | PCM.DC ---
- Discharge Diagnoses Current Active Problems: Current Active and Chronic Problems (Last Reviewed 07/04/20 @ 03:[address] Cam Duran MD) Chest pain (Acute) Seborrheic keratoses (Chronic) Cervical disc disease (Chronic) Atherosclerosis of coronary artery of [place] heart without angina pectoris (Chronic) Nonrheumatic mitral (valve) prolapse (Chronic) Nonrheumatic mitral (valve) insufficiency (Chronic) Essential (primary) hypertension (Chronic) Hyperlipidemia (Chronic) You will use the following diet at home:: Cardiac Discharge Activity: Return to Normal Activity Call your doctor if you observe: Shortness of breath, Dizziness, Fainting spells, Chest pain Additional Instructions: Recommend repeating sleep study as outpatient which can be arranged by her primary care provider. Allergies/Adverse Reactions: Allergies niacin [From Niaspan Extended-Release] Allergy (Verified 07/04/20 00:08) Extreme Itching cyclobenzaprine Adverse Reaction (Unknown, Verified 07/04/20 00:08) Heart feels like wants to stop Generic only, can take Name Brand Medications to take at Discharge Aspirin [Aspirin, Baby] 81 mg PO DAILY 03/25/13 Coenzyme Q10/l-Carnitine [Q-Sorb Co Q-10 Plus 100 mg] 1 ea PO DAILY 03/25/13 Multivitamins,Therapeutic [Multivitamin] 1 tab PO DAILY 03/25/13 cholecalciferol (vitamin D3) 50 mcg (2,000 unit) capsule 3,000 unit PO DAILY 08/20/18 omega-3 fatty acids 1,000 mg capsule 1,000 mg PO DAILY 08/20/18 atorvastatin 80 mg tablet 80 mg PO QHS #90 tab 08/17/19 clopidogrel 75 mg tablet 75 mg PO DAILY #90 tab 08/17/19 metoprolol tartrate 50 mg tablet 50 mg PO BID #180 tab 08/17/19 Lisinopril [Zestril] 10 mg PO DAILY #60 tab 07/04/20 The following prescriptions were given: Lisinopril [Zestril] 10 mg PO DAILY #60 tab Transmission Status: Pending to [facility]/pharmacy #[id number] Primary Care Physician: Azam Haynes DO [Primary Care Provider] - Please follow up with your Primary Care Physician in: 1 Week Test Results: Test results from this visit will be discussed in further detail at your follow-up appointment, if applicable. Please Follow Up With: Adam Maloney MD When: As scheduled 08/15/20 Proposed Discharge Date: 07/04/20
--- NOTE | 2020-07-04 12:01 | STRESSREP ---
Stress Test Report Date: 07-04-2020 Procedure: Pharmacologic stress nuclear imaging study Indications: Chest pain; CAD; PCI Consent: Per the patient Procedure: The patient underwent pharmacologic (Regadenoson 0.4mg ) evaluation with a peak heart rate of 111 beats per minute (75%predicted maximal heart rate) and a peak blood pressure of 150/94 mmHg. The baseline ECG demonstrated sinus bradycardia. The peak pharmacologic ECG demonstrated no obvious ECG changes. There were no cardiac dysrhythmias pretest, during pharmacologic infusion, or recovery. There was no complaint of chest discomfort during pharmacologic infusion or recovery. The examination was discontinued secondary to completion of protocol. Impression: 1. Pharmacologic (Regadenoson) evaluation 2. Peak pharmacologic ECG with no obvious ECG changes. 3. There were no cardiac dysrhythmias pretest, during pharmacologic infusion, or recovery. 4. Nuclear images pending Myocardial perfusion imaging study: Technique: The patient was injected with 11.8 millicuries of technetium 99m Cardiolite and subsequently rest SPECT Cardiolite nuclear imaging was obtained in the horizontal long, vertical long, and short axis views. The patient underwent pharmacologic (Regadenoson) evaluation with a peak heart rate of 111 beats per minute (75% percent predicted maximal heart rate) and a peak blood pressure of 150/94 mmHg. The patient was injected with 34.2 millicuries of technetium 99m Cardiolite and subsequently stress SPECT Cardiolite nuclear imaging was obtained in the horizontal long, vertical long, and short axis views. A gated Cardiolite study at peak stress was obtained. Interpretation: Rest and stress SPECT Cardiolite nuclear imaging status post realignment, normalization, and attenuation correction demonstrate relatively normal tracer uptake and myocardial perfusion appearing within normal limits. There is end systolic thickening and brightening. The gated Cardiolite study demonstrates myocardial thickening and inward wall motion. The reported LVEF is 69%. Impression: 1. Rest and stress SPECT Cardiolite nuclear imaging demonstrate relatively normal tracer uptake and myocardial perfusion appearing within normal limits with no myocardial perfusion changes considered diagnostic for associated stress-induced myocardial ischemia. 2. The gated Cardiolite study reports an LVEF of 69%. This note was generated with [employer] software. It may contain incorrect words, spelling, and punctuation that were not noted in checking the note before signing.
--- NOTE | 2020-07-04 12:50 | DS.PCM_ITS ---
<Ericka Arenas SPORTS BOOK WRITER - Last Filed: 07/04/20 13:00> Discharge Date and Diagnosis - Problem List Patient Problems: Active and Suspected Problems (Last Reviewed 07/04/20 @ 03:[address] Cam Duran MD) Chest pain (Acute) Date of Admission: 07/03/20 Date of Discharge: 07/04/20 - Primary Discharge Diagnosis Acute Problems: Active Problems (Last Reviewed 07/04/20 @ 03:[address] Cam Duran MD) 1. Chest pain, ACS ruled out 2. CAD with history of angioplasty and stenting 3. Hypertension 4. Hyperlipidemia 5. REJI, untreated 6. Cervical disc disease, chronic pain - Secondary Discharge Diagnosis Chronic Problems: Chronic Problems (Last Reviewed 07/04/20 @ 03:[address] Cma Duran MD) Seborrheic keratoses (Chronic) Cervical disc disease (Chronic) Atherosclerosis of coronary artery of [place] heart without angina pectoris (Chronic) Nonrheumatic mitral (valve) prolapse (Chronic) Nonrheumatic mitral (valve) insufficiency (Chronic) Essential (primary) hypertension (Chronic) Hyperlipidemia (Chronic) Hospital Course and Treatment Imaging Results: Diagnostic Data Chest X-Ray 07/03/20 21:45 IMPRESSION: No acute cardiopulmonary abnormality. at 2214 Reported and signed by: Roxanne Winn MD Electronically Signed: Roxanne Winn MD at 22:14 EST Tel , Service support , Operations: None Procedures: Stress test Summary of Care Provided: The patient is a 75 year old M admitted 07/03/2020 due to chest pain. 1. Chest pain, ACS ruled out-troponin negative. EKG without ST-T changes. Patient underwent nuclear stress test which was negative for ischemia. LVEF 69%. Patient's symptoms have resolved. Possibly due to elevated blood pressure which was present on admission versus musculoskeletal. Follow-up with PCP in 1 week. Follow-up with cardiology as scheduled. 2. CAD with history of angioplasty and stenting-continue aspirin, statin, Plavix, metoprolol, lisinopril. 3. Hypertension-elevated on admission. Continue metoprolol. Home lisinopril regimen increased to 10 mg daily. Recommend continued blood pressure monitoring at home. 4. Hyperlipidemia-continue statin. 5. REJI, untreated-patient states he underwent sleep study in the past and was unable to complete the second portion due to being uncomfortable. Recommend repeating study if patient is able to tolerate. 6. Cervical disc disease, chronic pain-follows with pain management, patient states he is not a candidate for surgical intervention. Patient seen and examined prior to discharge. Physical assessment as noted below. Patient is stable for discharge with follow up recommendations as noted above. This patient was seen by DARREL Giron under the supervision of Dr. Williamson. Patient Problems: Active and Suspected Problems (Last Reviewed 07/04/20 @ 03:[address] Cam Duran MD) Chest pain (Acute) - Physical Exam Vitals/I&O's: Vital Signs Temp Pulse Resp BP Pulse Ox 97.6 F L 71 16 161/90 H 97 07/04/20 11:09 07/04/20 11:13 07/04/20 11:09 07/04/20 11:09 07/04/20 11:09 Oxygen Delivery Method Room Air Weight: 172 lb 6.424 oz Body Mass Index (BMI) 23.3 Intake and Output for Last 24 Hours 07/02/20 07/03/20 07/04/20 23:59 23:59 23:59 Intake Total 0 / 0 Balance 0 / 0 General: Alert, Oriented x3, Cooperative HEENT: Atraumatic, PERRLA, EOMI, Normocephalic Neck: Supple, No JVD, Negative Carotid Bruits Lungs: Clear to auscultation, Normal air movement Cardiovascular: Regular rate, No murmurs Abdomen: Bowel Sounds Present, Soft, Non Tender, Non-Distended Extremities: No clubbing, No cyanosis, No edema, Capillary Refill Less than 3 Seconds Skin: No rashes, No breakdown Musculoskeletal: No Tenderness to Palpation of Joints or Extremities Neurological: Cranial nerves II-XII grossly intact, Neuro grossly intact Psych/Mental Status: Normal Affect, Appropriate Laboratory Results 07/03/20 21:38: WBC 7.3, RBC 5.22, Hgb 16.0, Hct 47.7, MCV 91.4, MCH 30.7, MCHC 33.5, RDW Std Deviation 44.2 H, RDW Coeff of Leeroy 13.2, Plt Count 203, MPV 10.0, Immature Gran % (Auto) 0.100, Neut % (Auto) 49.7, Lymph % (Auto) 37.8, [place] % (Auto) 7.4, Eos % (Auto) 4.3, Baso % (Auto) 0.7, Absolute Neuts (auto) 3.6, Absolute Lymphs (auto) 2.74, Nucleated RBC % 0 07/03/20 21:38: Sodium 143, Potassium 3.7, Chloride 109 H, Carbon Dioxide 25.0, Anion Gap 9, BUN 17, Creatinine 0.97, Estim Creat Clear Calc 74.44, Est GFR (MDRD) Af Amer 97, Est GFR (MDRD) Non-Af 81, BUN/Creatinine Ratio 17.5, Glucose 116 H, Calcium 9.0, Troponin I < 0.015 07/04/20 00:40: Troponin I < 0.015 07/04/20 03:26: WBC 7.0, RBC 4.61, Hgb 14.2, Hct 42.0, MCV 91.1, MCH 30.8, MCHC 33.8, RDW Std Deviation 43.6, RDW Coeff of Leeroy 13.2, Plt Count 182, MPV 10.2, Immature Gran % (Auto) 0.300, Neut % (Auto) 61.5, Lymph % (Auto) 29.6, [facility] % (Auto) 6.6, Eos % (Auto) 1.3, Baso % (Auto) 0.7, Absolute Neuts (auto) 4.3, Absolute Lymphs (auto) 2.07, Nucleated RBC % 0 07/04/20 03:26: Sodium 142, Potassium 3.9, Chloride 110 H, Carbon Dioxide 24.0, Anion Gap 8, BUN 16, Creatinine 0.73, Estim Creat Clear Calc 72.21, Est GFR (MDRD) Af Amer 136, Est GFR (MDRD) Non-Af 113, BUN/Creatinine Ratio 22.0 H, Glucose 111 H, Calcium 8.7, Troponin I < 0.015, Triglycerides 48, Cholesterol 123, LDL Cholesterol 68, VLDL Cholesterol 10, HDL Cholesterol 45 Current Medications Acetaminophen (Acetaminophen 325 Mg Tablet) 650 mg PO Q6H PRN PRN PRN Reason: Pain Score 1-10/Temp > 100.7 F Aspirin (Aspirin 81 Mg Tab.Chew) [facility] Last Admin: 07/04/20 06:11 Dose: 81 mg Documented by: Atorvastatin Calcium (Atorvastatin Calcium 80 Mg Tablet) 80 mg PO QHS [facility] Cholecalciferol (Cholecalciferol (Vit D3) 1,000 Unit (25mcg)) 2,000 unit PO DAILY [facility] Last Admin: 07/04/20 11:14 Dose: 2,000 unit Documented by: Clopidogrel Bisulfate (Clopidogrel Bisulfate 75 Mg Tablet) 75 mg PO DAILY [facility] Last Admin: 07/04/20 06:11 Dose: 75 mg Documented by: Hydralazine HCl (Hydralazine 20 Mg/Ml Vial) 10 mg IV Q4H PRN PRN PRN Reason: SBP > 160 OR DBP > 120 Sodium Chloride () 250 mls @ 15 mls/hr IV .[id number] PRN PRN Reason: Saline Flush Sodium Chloride () 250 mls @ 15 mls/hr IV .[id number] PRN PRN Reason: Additional IVPB Infusion Lisinopril (Lisinopril 5 Mg Tablet) 10 mg PO DAILY [facility] Melatonin (Melatonin 3 Mg Tablet) 3 mg PO QHS PRN PRN PRN Reason: INSOMNIA Metoprolol Tartrate (Metoprolol Tartrate 50 Mg Tablet) 50 mg PO BID [facility] Last Admin: 07/04/20 11:13 Dose: 50 mg Documented by: Morphine Sulfate (Morphine 2 Mg/Ml Syringe) 2 mg IV Q3H PRN PRN PRN Reason: Pain Score 6-10 Multivitamins (Multivitamins,Therapeutic Tablet) [facility] Last Admin: 07/04/20 11:14 Dose: 1 tablet Documented by: Nitroglycerin (Nitroglycerin (Inpatient Use) 0.4 Mg Tab.Subl) 0.4 mg SUBLINGUAL Q5M PRN PRN Reason: CARDIAC/CHEST PAIN Last Admin: 07/04/20 00:26 Dose: 1 tab Documented by: Ondansetron HCl (Ondansetron 4 Mg/2 Ml Vial) 4 mg IV Q8H PRN PRN PRN Reason: NAUSEA/VOMITING Senna/Docusate Sodium (Senna/Docusate Sodium 1 Tablet) 2 tablet PO BID PRN PRN PRN Reason: Constipation Sodium Chloride (0.9% Saline Lock 10 Ml Syringe) 10 - 40 ml IV UD PRN PRN Reason: SALINE FLUSH Discharge Diet: Low fat/ Low Cholesterol Discharge Activity: Return to Normal Activity Call your doctor if you observe: Shortness of breath, Dizziness, Fainting spells, Chest pain Home Medications: Medications to take at Discharge Aspirin [Aspirin, Baby] 81 mg PO DAILY 03/25/13 Coenzyme Q10/l-Carnitine [Q-Sorb Co Q-10 Plus 100 mg] 1 ea PO DAILY 03/25/13 Multivitamins,Therapeutic [Multivitamin] 1 tab PO DAILY 03/25/13 cholecalciferol (vitamin D3) 50 mcg (2,000 unit) capsule 3,000 unit PO DAILY 08/20/18 omega-3 fatty acids 1,000 mg capsule 1,000 mg PO DAILY 08/20/18 atorvastatin 80 mg tablet 80 mg PO QHS #90 tab 08/17/19 clopidogrel 75 mg tablet 75 mg PO DAILY #90 tab 08/17/19 metoprolol tartrate 50 mg tablet 50 mg PO BID #180 tab 08/17/19 Lisinopril [Zestril] 10 mg PO DAILY #60 tab 07/04/20 Following Prescriptions Were Given to Patient: Lisinopril [Zestril] 10 mg PO DAILY #60 tab Transmission Status: Received by [facility]/pharmacy #[id number] Primary Care Physician: Azam Haynes DO [Primary Care Provider] - Please follow up with your Primary Care Physician in: 1 Week Please Follow Up With: Adam Maloney MD When: As scheduled 08/15/20 Disposition: Home Minutes spent on discharge:: 35 Patient Condition:: Stable Medical Necessity - Tobacco Use Smoking Status: Former smoker Meaningful Use Info Meaningful Use Diagnoses (Choose all that apply): None applicable <Luis A Williamson - Last Filed: 07/04/20 13:47> Discharge Date and Diagnosis - Primary Discharge Diagnosis Acute Problems: Active Problems (Last Reviewed 07/04/20 @ 03:[address] Cam Duran MD) Chest pain (Acute) - Secondary Discharge Diagnosis Chronic Problems: Chronic Problems (Last Reviewed 07/04/20 @ 03:[address] Cam Duran MD) Seborrheic keratoses (Chronic) Cervical disc disease (Chronic) Atherosclerosis of coronary artery of [place] heart without angina pectoris (Chronic) Nonrheumatic mitral (valve) prolapse (Chronic) Nonrheumatic mitral (valve) insufficiency (Chronic) Essential (primary) hypertension (Chronic) Hyperlipidemia (Chronic) Hospital Course and Treatment Imaging Results: 07/04/20 05:55 Nuclear Stress Test - Chemical [NM] AM (NON MEDS) Summary of Care Provided: The patient is a 75 year old M [] - Physical Exam Vitals/I&O's: Vital Signs Temp Pulse Resp BP Pulse Ox 97.6 F L 80 16 161/90 H 97 07/04/20 11:09 07/04/20 11:15 07/04/20 11:09 07/04/20 11:09 07/04/20 11:09 Oxygen Delivery Method Room Air Weight: 172 lb 6.424 oz Body Mass Index (BMI) 23.3 Intake and Output for Last 24 Hours 07/02/20 07/03/20 07/04/20 23:59 23:59 23:59 Intake Total 0 / 0 Balance 0 / 0 Laboratory Results 07/03/20 21:38: WBC 7.3, RBC 5.22, Hgb 16.0, Hct 47.7, MCV 91.4, MCH 30.7, MCHC 33.5, RDW Std Deviation 44.2 H, RDW Coeff of Leeroy 13.2, Plt Count 203, MPV 10.0, Immature Gran % (Auto) 0.100, Neut % (Auto) 49.7, Lymph % (Auto) 37.8, [place] % (Auto) 7.4, Eos % (Auto) 4.3, Baso % (Auto) 0.7, Absolute Neuts (auto) 3.6, Absolute Lymphs (auto) 2.74, Nucleated RBC % 0 07/03/20 21:38: Sodium 143, Potassium 3.7, Chloride 109 H, Carbon Dioxide 25.0, Anion Gap 9, BUN 17, Creatinine 0.97, Estim Creat Clear Calc 74.44, Est GFR (MDRD) Af Amer 97, Est GFR (MDRD) Non-Af 81, BUN/Creatinine Ratio 17.5, Glucose 116 H, Calcium 9.0, Troponin I < 0.015 07/04/20 00:40: Troponin I < 0.015 07/04/20 03:26: WBC 7.0, RBC 4.61, Hgb 14.2, Hct 42.0, MCV 91.1, MCH 30.8, MCHC 33.8, RDW Std Deviation 43.6, RDW Coeff of Leeroy 13.2, Plt Count 182, MPV 10.2, Immature Gran % (Auto) 0.300, Neut % (Auto) 61.5, Lymph % (Auto) 29.6, [facility] % (Auto) 6.6, Eos % (Auto) 1.3, Baso % (Auto) 0.7, Absolute Neuts (auto) 4.3, Absolute Lymphs (auto) 2.07, Nucleated RBC % 0 07/04/20 03:26: Sodium 142, Potassium 3.9, Chloride 110 H, Carbon Dioxide 24.0, Anion Gap 8, BUN 16, Creatinine 0.73, Estim Creat Clear Calc 72.21, Est GFR (MDRD) Af Amer 136, Est GFR (MDRD) Non-Af 113, BUN/Creatinine Ratio 22.0 H, Glucose 111 H, Calcium 8.7, Troponin I < 0.015, Triglycerides 48, Cholesterol 123, LDL Cholesterol 68, VLDL Cholesterol 10, HDL Cholesterol 45 Current Medications Acetaminophen (Acetaminophen 325 Mg Tablet) 650 mg PO Q6H PRN PRN PRN Reason: Pain Score 1-10/Temp > 100.7 F Aspirin (Aspirin 81 Mg Tab.Chew) [facility] Last Admin: 07/04/20 06:11 Dose: 81 mg Documented by: Atorvastatin Calcium (Atorvastatin Calcium 80 Mg Tablet) 80 mg PO QHS [facility] Cholecalciferol (Cholecalciferol (Vit D3) 1,000 Unit (25mcg)) 2,000 unit PO DAILY [facility] Last Admin: 07/04/20 11:14 Dose: 2,000 unit Documented by: Clopidogrel Bisulfate (Clopidogrel Bisulfate 75 Mg Tablet) 75 mg PO DAILY [facility] Last Admin: 07/04/20 06:11 Dose: 75 mg Documented by: Hydralazine HCl (Hydralazine 20 Mg/Ml Vial) 10 mg IV Q4H PRN PRN PRN Reason: SBP > 160 OR DBP > 120 Sodium Chloride () 250 mls @ 15 mls/hr IV .[id number] PRN PRN Reason: Saline Flush Sodium Chloride () 250 mls @ 15 mls/hr IV .[id number] PRN PRN Reason: Additional IVPB Infusion Lisinopril (Lisinopril 10 Mg Tablet) 10 mg PO DAILY [facility] Melatonin (Melatonin 3 Mg Tablet) 3 mg PO QHS PRN PRN PRN Reason: INSOMNIA Metoprolol Tartrate (Metoprolol Tartrate 50 Mg Tablet) 50 mg PO BID [facility] Last Admin: 07/04/20 11:13 Dose: 50 mg Documented by: Morphine Sulfate (Morphine 2 Mg/Ml Syringe) 2 mg IV Q3H PRN PRN PRN Reason: Pain Score 6-10 Multivitamins (Multivitamins,Therapeutic Tablet) [facility] Last Admin: 07/04/20 11:14 Dose: 1 tablet Documented by: Nitroglycerin (Nitroglycerin (Inpatient Use) 0.4 Mg Tab.Subl) 0.4 mg SUBLINGUAL Q5M PRN PRN Reason: CARDIAC/CHEST PAIN Last Admin: 07/04/20 00:26 Dose: 1 tab Documented by: Ondansetron HCl (Ondansetron 4 Mg/2 Ml Vial) 4 mg IV Q8H PRN PRN PRN Reason: NAUSEA/VOMITING Senna/Docusate Sodium (Senna/Docusate Sodium 1 Tablet) 2 tablet PO BID PRN PRN PRN Reason: Constipation Sodium Chloride (0.9% Saline Lock 10 Ml Syringe) 10 - 40 ml IV UD PRN PRN Reason: SALINE FLUSH Addendum: Dr. Williamson I personally examined the patient and reviewed the chart. I agree with the above. 75-year-old male presented to the emergency department with chest pain that started on the same day of presentation. He says that it went across his entire chest and radiated between his shoulder blades. He does have a history of coronary artery disease with stent placement in 2010. He states that his chest pain has completely resolved his troponins were unremarkable and his EKG was nonischemic. His lisinopril was increased on discharge to help control his elevated blood pressure. Stress test was also unremarkable and given the fact that his chest pain had resolved, he was discharged home with outpatient follow- up. OBSV E&M: [id number] Observation care discharge
--- NOTE | 2020-07-04 14:21 | PHA.DC.MR ---
Pharmacy Service has performed discharge medication reconciliation for this patient. The patient's discharge medication list was reviewed for discrepancies and discrepancies were resolved. Home Medications Aspirin [Aspirin, Baby] 81 mg PO DAILY 03/25/13 Coenzyme Q10/l-Carnitine [Q-Sorb Co Q-10 Plus 100 mg] 1 ea PO DAILY 03/25/13 Multivitamins,Therapeutic [Multivitamin] 1 tab PO DAILY 03/25/13 cholecalciferol (vitamin D3) 50 mcg (2,000 unit) capsule 3,000 unit PO DAILY 08/20/18 omega-3 fatty acids 1,000 mg capsule 1,000 mg PO DAILY 08/20/18 atorvastatin 80 mg tablet 80 mg PO QHS #90 tab 08/17/19 clopidogrel 75 mg tablet 75 mg PO DAILY #90 tab 08/17/19 metoprolol tartrate 50 mg tablet 50 mg PO BID #180 tab 08/17/19 Lisinopril [Zestril] 10 mg PO DAILY #60 tab 07/04/20
== END 2020-07-04 11:43 | disposition home or self-care (01) ==
LOC: ED 22:44 → PCU 23:38
PROVIDERS: Admitting Provider Hospitalist; Emergency Provider Emergency Medicine; PCP Family Medicine; Visit Provider Family Medicine
DX: R07.89 Other chest pain (principal); I10 Essential (primary) hypertension; I25.10 Atherosclerotic heart disease of native coronary artery without angina pectoris; I44.0 Atrioventricular block, first degree; R00.1 Bradycardia, unspecified; E78.5 Hyperlipidemia, unspecified; K21.9 Gastro-esophageal reflux disease without esophagitis; G47.33 Obstructive sleep apnea (adult) (pediatric); Z87.891 Personal history of nicotine dependence; Z79.899 Other long term (current) drug therapy; Z79.02 Long term (current) use of antithrombotics/antiplatelets; Z79.82 Long term (current) use of aspirin; Z95.5 Presence of coronary angioplasty implant and graft
CPT/HCPCS: 36415; 71045; 78452; 80048; 80061; 84484; 85025; 93005; 93017; 99218; 99285; A9500; A4216; G0378; J2785

== ENCOUNTER → 2020-08-12 10:01 | Outpatient (CLI) | payer MEDICARE, OTHER, SELFPAY ==
[2020-07-19 13:33] VITALS: BMI 23.6
[2020-08-12 11:58] LABS: AST(SGOT) 31 U/L (15-37); Alanine Aminotransfer ALT/SGPT 40 U/L (16-61); Albumin, Serum 3.7 g/dL (3.2-5.0); Alkaline Phosphatase 79 U/L (45-117); Bilirubin, Direct 0.27 mg/dL (0.00-0.30); Cholesterol 133 mg/dL (200); High Density Lipoprotein 46 mg/dL; Protein, Total 6.7 g/dL (6.4-8.2); Triglycerides 49 mg/dL; Very Low Density Lipoprotein 10 mg/dL (5-40)
== END ==
PROVIDERS: PCP Family Medicine; Referring Provider Nurse Practitioner Family; Visit Provider Nurse Practitioner Family
DX: E78.5 Hyperlipidemia, unspecified (principal); E78.00 Pure hypercholesterolemia, unspecified
CPT/HCPCS: 36415; 80061; 80076

== ENCOUNTER → 2020-08-16 12:19 | Outpatient (CLI) | payer MEDICARE, OTHER, SELFPAY ==
[2020-08-15 15:28] VITALS: BMI 23.8
--- NOTE | 2020-08-16 12:23 | US_ITS ---
STUDY: THYROID ULTRASOUND REASON FOR EXAM: Male, 75 years old. Multinodular goiter. Follow-up nodules. TECHNIQUE: Ultrasound evaluation of the thyroid was performed with real-time and static veloz-scale imaging. COMPARISON: 08/11/2018. FINDINGS: This study was first presented for interpretation at 1702 on 08/17/2020. RIGHT LOBE: The right lobe of the thyroid gland measures 5.0 x 2.2 x 1.26 cm. There is a homogeneous echotexture. In the lower pole there is a 1.1 x 1.1 x 0.6 cm mildly hyperechoic mass with a vaguely hypoechoic rim. This is wider than tall. There are no calcifications. There is peripheral vascularity. This appears unchanged from prior exam. In the mid pole there is a 0.4 x 0.4 x 0.2 cm anechoic structure with small central isoechoic focus. This is slightly decreased in size from prior study. LEFT LOBE: The left lobe of the thyroid gland measures 5.0 x 1.7 x 1.2 cm. There is a homogeneous echotexture. In the mid to lower thyroid there is a 1.3 x 1.1 x 1.0 cm isoechoic nodule with focal areas of an echogenicity centrally. This is wider than it is tall. There is no evidence of calcifications. There is peripheral vascularity. This is essentially unchanged in size and. From previous examination. In the lower pole there is a 0.3 x 0.3 x 0.2 cm hypoechoic focus. This is decreased in size from the prior study where it appeared cystic.. There is also a 0.5 x 0.4 x 0.3 cm hypoechoic focus along the posterior aspect of the lower pole which may represent a thyroid nodule or parathyroid gland. This was not visualized on the previous examination ISTHMUS: The isthmus measures 0.2 cm. The regional lymph nodes are normal. US/Thyroid IMPRESSION: 1. Bilateral thyroid nodules essentially unchanged in size and appearance of the study of 2 years earlier. This would suggest benignity. None are thought to require follow-up by TIRADS criteria secondary to their small size. Electronically Signed: Dragan José DO at 17:10 EDT Tel [phone], Service support ,
[2020-08-16 14:45] LABS: T4 Free Direct 1.01 ng/dL (0.76-1.46)
== END ==
PROVIDERS: PCP Family Medicine; Referring Provider Internal Medicine Endocrinology, Diabetes & Metabolism; Visit Provider Internal Medicine Endocrinology, Diabetes & Metabolism
DX: E04.2 Nontoxic multinodular goiter (principal)
CPT/HCPCS: 36415; 76536; 84439; 84443

== ENCOUNTER 2020-09-01 14:00 | Outpatient (RCR) | payer MEDICARE, OTHER, SELFPAY ==
[2020-07-19 13:33] VITALS: BMI 23.6
--- NOTE | 2020-08-13 14:16 | HP.PTEVAL_ITS ---
Patient's Visit Information LYNN SHEPARD is a 75 year old M referred to Physical Therapy by Dr. Azam Haynes DO with a diagnosis of CERVICAL DISC DISORDER. Date of Evaluation: 08/11/20 Physical Therapist: Brie Olivier PT, Cert MDT - Visit Plan Frequency: 2-3x /Week Duration: 4-6 Weeks Plan: US. POSTURE CORRECTION/STRENGTHENING, INSTRUCTION IN APPROPRIATE BODY MECHANICS AND ACTIVITY MODIFICATIONS. KAVON UE ROM, STRETCHING AND STRENGTHENING. HEP INSTRUCTION. 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 [employer] 3 WHEEL BIKE [employer]ID[employer]. Disability: NO. Present symptoms: BRIEF ELECTRICAL SHOCK SENSATION DOWN THE RIGHT SIDE OF THE NECK, DOWN THE BACK AND DOWN RIGHT UE TO LAST 3 FINGERS WHEN HE BENDS HIS HEAD FORWARD ALMOST EVERY TIME. NO WEAKNESS. CONSTANT RIGHT SHOULDER BLADE PAIN. Present since: ABOUT 2 MONTHS AGO. Pain Scale: Worst - 8/10 Least - 2/10. Currently: 2-3/10. Commenced as a result of: NO APPARENT REASON. Symptoms at onset: CHRONIC KAVON NECK PAIN. 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 Better: ADVANCED TENS UNIT PRESCRIBED BY DR. URBINA - ORDERED THROUGH A CO IN [facility] [employer] [facility]. PATIENT REPORTS IT IS AN INTERFERENTIAL UNIT, EMS AND TENS UNIT. STATES IT HELPS HIM MORE THAN PAIN MEDS. Disturbed sleep: YES. Previous history/Previous treatment: NO NECK SURGERY. A LOT OF DAGOBERTO'S WITH DR. TOMLINSON IN PAIN MGMT. SOME OF THE INJECTIONS HAVE HELPED SOME. PRESCRIPTION MEDICATIONS. HOME ELECTRICAL UNIT. PT MORE THAN 5 YEARS AGO - STATES HE DID NOT TOLERATE IT WELL. VERY LITTLE CHIROPRACTIC AND IT SEEMS TO AGGREVATE SX'S BUT HAS HAD OSTEOPATHIC MANIPULATIONS IN [place] FOR ABOUT [address] URBINA. Dizziness: NO. Tinnitis: NO. Nausea: NO. Shortness of Breath: NO. Difficulty Swollowing: AT TIMES. Gait: NO NEW PROBLEMS. Unexplained weight loss: NO. Imaging: NONE RECENT. PMH/Recent major surgery: UNREMARKABLE. OTHER: PATIENT REPROTS DR. URBINA TOLD HIM SURGERY WILL NOT HELP HIM. STATES THE DOCTORS HAVE TOLD HIM THEY HAVE DONE ALL THAT THEY CAN DO FOR HIM. - Objective Sitting Posture/Standing Posture: POOR. FH. RS. Active Correction of posture: NE. Other Observations: INDEP GAIT AND TRANSFERS. PLEASANT AND COOPERATIVE TO WORK WITH. 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 KAVON UE'S GROSSLY 5/5 WITH MMT'ING. Sensory deficit: KAVON UE LIGHT TOUCH SENSATION GROSSLY INTACT AND SYMMETRICAL. ROM deficit: KAVON UE ROM WFL. Reflexes: 2/3 KAVON UE'S. Dural Signs: POSITIVE R UE. Cervical Mvmt Loss: Flex: NIL - BUT SHOOTS ELECTRICAL SHOCK TO THE RIGHT - SEE ABOVE. Pro: NIL. Ext: MOD. Ret: SONG. RSB: MOD. LSB: MOD. R Rot: MOD. L Rot: MOD. Postural strength: POOR - Goals Goal 1:: DECREASE C/O NECK AND RIGHT UE SX'S. Goal Time Frame: 4-6 Weeks Goal 2:: IMPROVE READING, SLEEP, DRIVING AND RECREATIONAL FUNCTION Goal Time Frame: 4-6 Weeks Goal 3:: INSTRUCT IN PROPHYLAXIS Goal Time Frame: 4-6 Weeks - Anticipated Interventions Patient/Client Instruction: Educate patient on: Condition, Plan of Care, Risk Factors, Benefits of Fitness Program For the Purpose of:: To improve self management Therapeutic Exercise to Include: Strength training, Body mechanics, Postural training, Flexibilty training, Neuromotor development, Active ROM, Scapular Strength/Stabilization For the Purpose of:: To decrease pain, To increase ROM, To improve muscle performance and motor function, To increase tolerance to activity/condition/position, To improve ability of physical actions for home/co mmunity/work/leisure Cryotherapy (ice pack, ice massage): Yes Thermo therapy (hot pack): Yes Ultrasound (thermal/non thermal): Yes For the Purpose of:: To decrease pain, To improve nutrient delivery to tissue Thank you for the opportunity to evaluate your patient. For Medicare and Medicare HMO plans, please review the plan of care and approve it. It will need to be FAXED BACK to us at [phone] for Medicare purposes. For Medicare only, by signing this I certify the plan of care. Please let me know if there are questions or concerns regarding this plan of care. Physician Signature: Date:
--- NOTE | 2020-09-01 14:44 | HP.PTDCSUM_ITS ---
It has been my pleasure to treat LYNN SHEPARD referred by Dr. Azam Haynes DO, with the diagnosis of CERVICAL DISC DISORDER for a total of 7 visit(s). Discharge Date: 09/01/20 Please see the following information for a summary of their discharge status. Subjective: PATIENT REPORTS SEVERE PAIN ALL THE WAY DOWN HIS R ARM TO HIS HAND AT 3AM THIS MORNING FOR NO APPARENT REASON AND COULDN'T DO ANYTHING TO HELP. HOME EX'S DIDN'T HELP. TOOK A PAIN PILL AND IT EVENTUALLY CALMED DOWN. STATES HE IS STILL UNDER THE INFLUENCE OF HIS PAIN PILL. PATIENT DENIES ANY PAIN OUT OF THE ORDINARY UNTIL 3AM TODAY. STATES HE SLEPT GOOD LAST FRIDAY NIGHT. STATES HE HAS ALREADY DONE ALL OF HIS HOME EX'S TODAY. FELT FINE WHEN HE WENT TO BED FRIDAY NIGHT. PATIENT STATES HE WOULD LIKE TO STOP PT AT THIS POINT AND SEE WHAT OTHER OPTIONS THE DOCTORS MIGHT HAVE FOR HIM. RIGHT NECK/SHLD Pain Intensity (Out of 10): 2 RIGHT UE Pain Intensity (Out of 10): 4 % Improvement: 0 Objective/Function: PATIENT IS NOT IMPROVING. NO SIGNIFICANT CHANGES SINCE INIT IAL EVAL. PHYSICIAN RE-ASSESSMENT RECOMMENDED. PATIENT WAS INSTRUCTED WITH EMPHASIS TO EXERCISE IN COMFORTABLE ROM AND INTENSITY ONLY AND NOT TO PROVOKE PAIN, NUMBNESS OR TINGLING. Goal 1:: DECREASE C/O NECK AND RIGHT UE SX'S. Goal Progress: Not Progressing Goal 2:: IMPROVE READING, SLEEP, DRIVING AND RECREATIONAL FUNCTION Goal Progress: Not Progressing Goal 3:: INSTRUCT IN PROPHYLAXIS Goal Progress: Not Progressing Plan: D/C DUE TO LACK OF PROGRESS AND AT PATIENTS REQUEST. If there are questions or concerns regarding this patient's physical therapy, please feel free to call me at [phone]. Thank you for the referral of this patient. Sincerely, Brie Olivier, PT, Cert MDT
== END 2020-09-01 19:00 | disposition home or self-care (01) ==
LOC: PT 14:00
PROVIDERS: PCP Family Medicine; Referring Provider Family Medicine; Visit Provider Family Medicine
DX: M50.90 Cervical disc disorder, unspecified, unspecified cervical region (principal)
CPT/HCPCS: 97035; 97110; 97162; 97530

== ENCOUNTER → 2020-10-24 14:34 | Outpatient (CLI) | payer MEDICARE, OTHER, SELFPAY ==
[2020-08-15 15:28] VITALS: BMI 23.8
[2020-10-24 16:44] LABS: PSA,Total - Annual Screen 2.23 ng/mL (0.00-4.00)
== END ==
PROVIDERS: PCP Family Medicine; Referring Provider Urology; Visit Provider Urology
DX: Z12.5 Encounter for screening for malignant neoplasm of prostate (principal)
CPT/HCPCS: 36415; 84153; G0103

== ENCOUNTER 2021-08-13 08:39 | Outpatient (CLI) | payer MEDICARE, OTHER, SELFPAY ==
--- NOTE | 2021-08-13 10:40 | NEURO ---
NCS and/or EMG Patient Report Ordering Doctor: Azam Haynes DATE OF SERVICE: 08/13/21 Indication: Intermittent shock-like pain involving the first three fingers of the right hand. Evaluate for entrapment neuropathy. Findings: Nerve conduction studies were performed in the right upper extremity. The right median motor study recording the abductor pollicis brevis showed a normal amplitude, prolonged distal latency and normal conduction velocity. The right ulnar motor study recording the abductor digiti minimi showed a normal amplitude, normal distal latency and normal conduction velocity. No conduction block or focal slowing was present across the elbow. The right median sensory response recording digit two showed a normal amplitude, borderline latency and borderline conduction velocity. The right ulnar sensory response recording digit five showed a normal amplitude, latency and conduction velocity. The right radial sensory response recording over the extensor snuff box showed a normal amplitude, latency and conduction velocity. Right median-ulnar lumbrical / interosseous motor latencies showed a prolonged median latency compared to the ulnar. Needle EMG of the right upper extremity muscles was performed. No denervation was seen in any muscle. Motor units in the abductor pollicis brevis were large amplitude, long duration with slightly reduced recruitment. Motor units in the first dorsal interosseous were borderline large, but otherwise unremarkable. All other motor unit morphology, activation and recruitment patterns were normal. Impression: This is an abnormal study. There is electrophysiologic evidence of mild median neuropathy across the right. The pathophysiology is predominantly demylination. These findings are compatible with the clinical diagnosis of carpal tunnel syndrome. Manjeet Roca D.O. Multi Select Codes Neurology Neurology Interp Codes: 40362-78 Musc test done w/n test comp (interp) and 55885-15 Nrv cndj test 7-8 studies (interp)
== END 2021-08-13 23:59 | disposition home or self-care (01) ==
LOC: PSN 08:40
PROVIDERS: PCP Family Medicine; Referring Provider Family Medicine; Visit Provider Family Medicine
DX: G56.01 Carpal tunnel syndrome, right upper limb (principal); M79.601 Pain in right arm
CPT/HCPCS: 95886; 95910

== ENCOUNTER 2021-08-14 14:12 | Outpatient (CLI) | payer MEDICARE, OTHER, SELFPAY ==
[2021-08-14 15:24] LABS: AST(SGOT) 36 U/L (15-37); Alanine Aminotransfer ALT/SGPT 47 U/L (16-61); Alkaline Phosphatase 78 U/L (45-117); Bilirubin, Direct 0.32 mg/dL (0.00-0.30); Cholesterol 141 mg/dL (200); High Density Lipoprotein 44 mg/dL; Triglycerides 110 mg/dL; Very Low Density Lipoprotein 22 mg/dL (5-40)
== END 2021-08-14 23:59 | disposition home or self-care (01) ==
LOC: LAB 14:14
PROVIDERS: PCP Family Medicine; Referring Provider Physician Assistant Medical; Visit Provider Physician Assistant Medical
DX: E78.00 Pure hypercholesterolemia, unspecified (principal); E78.5 Hyperlipidemia, unspecified
CPT/HCPCS: 36415; 80061; 80076

== ENCOUNTER 2021-10-17 14:34 | Emergency (ER) | payer MEDICARE, OTHER, SELFPAY ==
[2021-10-17 14:35] VITALS: BP 118/83; PULSE 65; RESP 20; TEMP 36.4; BMI 22.8
[2021-10-17] MEDS: Morphine 4 MG/ML Syringe IM (15:19)
--- NOTE | 2021-10-17 15:20 | RAD_ITS ---
STUDY: X-RAY - LUMBAR SPINE REASON FOR EXAM: Male, 76 years old. Injury/Pain TECHNIQUE: 2 view(s) of the lumbar spine were obtained. COMPARISON: None FINDINGS: Normal lumbar lordosis. There is no substantial scoliosis. There is a normal alignment of the vertebrae. There is multilevel endplate spondylosis of the lumbar vertebrae. There is multi-level degenerative disc disease with multi-level disc space narrowing. There is mild atherosclerotic calcification of the abdominal aorta without a demonstrated aneurysm. RAD/Lumbar Spine 2 or 3 Views IMPRESSION: Degenerative changes of the spine, as detailed above. Electronically Signed: Ramos Galan MD at 15:50 EDT ,
--- NOTE | 2021-10-17 15:25 | EDS_ITS ---
HPI History of Present Illness Chief Complaint: Back Informant: patient Narrative Narrative: Patient is a 76-year-old male with history of coronary artery disease on Plavix and aspirin as well as cervical disc disease presenting with left low back pain. Patient states he was walking backwards when he tripped over a block of wood. He landed on his buttocks and that into his lower back. Denies hitting his head. Denies any loss of consciousness. This happened around 11 AM. States that he has pain in his left lower back that is worsened and he could not get himself out of the chair. He had to call his son to help him. He came to the emergency room for further evaluation. He denies any numbness or tingling of his legs. He denies any bowel or bladder incontinence. He did take Aleve before coming in with no relief of his symptoms. Does not take anything chronically for pain. No other complaints at this time [facility] Medical History (Updated 10/17/21 @ 17:[address] Maria Luisa Mckeon, DO) Atherosclerosis of coronary artery of [place] heart without angina pectoris Back pain Cervical cord compression with myelopathy Cervical disc disease Chronic back pain Essential (primary) hypertension GERD (gastroesophageal reflux disease) Hyperlipidemia Nonrheumatic mitral (valve) prolapse Obstructive sleep apnea Painful neck Seborrheic keratoses Swallowing problem Home Medications coenzyme [id number] 100 mg-20 mg capsule 1 ea PO DAILY 03/25/13 [History Last Taken 07/03/20] multivitamin with folic acid 400 mcg tablet 1 tab PO DAILY 03/25/13 [History Last Taken 07/03/20] omega-3 fatty acids 1,000 mg capsule 1,000 mg PO DAILY 08/20/18 [History Last Taken 07/03/20] aspirin 81 mg chewable tablet 81 mg PO DAILY #90 tabs 08/15/20 [Rx Last Taken Unknown] nitroglycerin 0.4 mg sublingual tablet (Nitrostat) 0.4 mg sublingual Q5-15M PRN chest pain #25 tabs 08/14/21 [Rx Last Taken Unknown] atorvastatin 80 mg tablet 80 mg PO QHS #90 tabs 10/03/21 [Rx Last Taken Unknown] clopidogrel 75 mg tablet 75 mg PO DAILY #90 tabs 10/03/21 [Rx Last Taken Unknown] lisinopril 10 mg tablet 10 mg PO DAILY #90 tabs 10/03/21 [Rx Last Taken Unknown] metoprolol tartrate 50 mg tablet 50 mg PO BID #180 tabs 10/03/21 [Rx Last Taken Unknown] pregabalin 50 mg capsule 50 mg PO QHS #30 caps 10/10/21 [Rx Last Taken Unknown] hydrocodone-acetaminophen 5-325mg 5mg-325mg 1 tab PO Q6H PRN pain 3 days #12 tabs 10/17/21 [Rx Last Taken Unknown] Allergy/AdvReac Type Severity Reaction Status Date / Time niacin Allergy Extreme Verified 10/10/21 16:26 [From Niaspan Itching Extended-Release] cyclobenzaprine AdvReac Unknown Heart Verified 10/10/21 16:26 feels like wants to stop Family History Father CAD (coronary artery disease) Mother Heart disease Sister Breast cancer Colon cancer Brother Colon cancer Surgical History H/O right knee surgery History of coronary artery stent placement (05/16/10) History of facial surgery History of left heart catheterization (02/16/14) History of orthopedic surgery History of shoulder surgery Social History household members: spouse housing: house current occupational status: retired Smoking Status: Former smoker how long ago did patient quit smokin alcohol intake: never substance use type: does not use what type of physical activity do you participate in: walking and bicycling frequency: daily seatbelt use: always do you feel safe at home: Yes ROS ROS ED Constitutional Constitutional ED: Denies chills or fever(s) Eyes Eyes: Denies blurry vision or change in vision ENT ENT ED: Denies rhinorrhea or sore throat Cardiovascular Cardiovascular: Denies chest pain Respiratory/Chest Respiratory/Chest: Denies cough Gastrointestinal Gastrointestinal: Denies abdominal pain, diarrhea or vomiting Genitourinary Genitourinary ED: Denies dysuria or hematuria Musculoskeletal Musculoskeletal: Reports back pain; Denies myalgias or neck pain Integumentary Denies Abrasions Neurologic Neurologic: Denies headache(s), paresthesias or weakness Hematologic/Lymphatic Hematologic/Lymphatic: Denies easy bleeding or easy bruising EXAM Physical Exam Const Vital Signs: 10/17/21 14:35 Temperature 97.5 F L Temperature Source Temporal Pulse Rate 65 Respiratory Rate 20 H Blood Pressure 118/83 H Blood Pressure Mean 94 Positive well nourished and well developed General Appearance ED: well developed and NAD HEENT atraumatic; Negative for tenderness Neck full ROM Neck Narrative: No step-off sign General: Negative for tenderness Chest Wall inspection of chest normal Cardio regular rhythm GI normal to inspection, nondistended, normoactive bowel sounds and non-tender Back/Spine Back/Spine Narrative: No midline tenderness. Patient does have highly reproducible tenderness of the left lower back around the level of L4. Pain does not radiate. Positive contralateral straight leg test. Thoracic Spine / Upper Back: Negative for thoracic spinal tenderness Lumbar Spine / Lower Back: straight leg raise positive right Extremity normal to inspection and full ROM Extremity Narrative: No pain with logroll or range of motion of the lower extremities. General Extremety ED: Negative for deformity, edema or tenderness General Extremity: Negative for deformity or edema Neuro oriented x3, CN's II-XII intact bilaterally, moves all extremities, no focal motor deficits and no sensory deficits noted Psych mental status grossly normal Skin no rashes or lesions noted and no wounds MDM MDM MDM Narrative Medical decision making narrative: Patient is evaluated for back pain after mechanical fall. He has left lower back pain. Does not have midline tenderness. He does have reproducible pain with direct palpation as well as flexion of the right hip. I question if he has a component of sciatica however his pain does not radiate. No pain with range of motion of the legs themselves and I do not think he has an occult hip fracture at this time. His pelvis is stable. There is no rotational deformity of the lower extremities. Patient is given IM morphine and then IV morphine. He has improvement of his pain and is able to ambulate with the assistance of a walker. He is neuro vastly intact and does not have some findings concerning for cauda equina syndrome. I do not think further imaging or observation is indicated at this time. We discussed his ability to perform activities of daily living at this time he feels stable to go home. He has family in the area that can help today. Is given a short course of [place] for further pain control. Counseled the risk of falls as well as confusion with [place]. Counseled on opioid-induced constipation and recommendation to take MiraLAX to help combat this. Patient verbalizes agreement understand this plan. He is discharged home in stable condition. He is given a walker in the emergency room as he does not currently have one. Radiography Diagnostic Testing: Clinical Impression(s) from Imaging Studies Lumbar Spine X-Ray 10/17/21 15:20 IMPRESSION: Degenerative changes of the spine, as detailed above. Electronically Signed: Ramos Galan MD at 15:50 EDT , Discharge Plan Triage Chief Complaint: Back ED Provider: Maria Luisa Mckeon Dx/Rx/DC Orders Clinical Impression: Back pain due to injury, Fall from slip, trip, or stumble Instructions: ED Back Pain (Acute or Chronic), ED Mechanical Fall Prescriptions: New hydrocodone-acetaminophen 5-325 mg tablet 1 tab PO Q6H PRN (Reason: pain) 3 Days Qty: 12 0RF No Action omega-3 fatty acids 1,000 mg capsule 1,000 mg PO DAILY aspirin 81 mg tablet,chewable 81 mg PO DAILY Qty: 90 3RF nitroglycerin [Nitrostat] 0.4 mg tablet, sublingual 0.4 mg sublingual Q5-15M PRN (Reason: chest pain) Qty: 25 3RF Rx Instructions: do not exceed 3 doses per episode pregabalin 50 mg capsule 50 mg PO QHS Qty: 30 3RF multivitamin with folic acid 1 TABLET tablet 1 tab PO DAILY Label Comments: Vitamins coenzyme [id number] 1 EACH capsule 1 ea PO DAILY Label Comments: Supplement for cholestrol atorvastatin 80 mg tablet 80 mg PO QHS Qty: 90 3RF clopidogrel 75 mg tablet 75 mg PO DAILY Qty: 90 3RF lisinopril 10 mg tablet 10 mg PO DAILY Qty: 90 3RF Rx Instructions: 10 mg PO daily; metoprolol tartrate 50 mg tablet 50 mg PO BID Qty: 180 3RF Primary Care Provider: Azam Haynes Referrals: Azam Haynes, DO [Primary Care Provider] - Disposition Disposition: Home, Self Care
[2021-10-17] MEDS: Morphine 4 MG/ML Syringe IV (16:14)
[2021-10-17 17:30] VITALS: PULSE 74; RESP 17
== END 2021-10-17 17:31 | disposition home or self-care (01) ==
PROVIDERS: Emergency Provider Emergency Medicine; PCP Family Medicine; Visit Provider Emergency Medicine
DX: M54.50 Low back pain, unspecified (principal); I25.10 Atherosclerotic heart disease of native coronary artery without angina pectoris; E78.5 Hyperlipidemia, unspecified; I10 Essential (primary) hypertension; Z80.0 Family history of malignant neoplasm of digestive organs; Z87.891 Personal history of nicotine dependence; W01.0XXA Fall on same level from slipping, tripping and stumbling without subsequent striking against object, initial encounter; Y93.01 Activity, walking, marching and hiking; K21.9 Gastro-esophageal reflux disease without esophagitis; G47.33 Obstructive sleep apnea (adult) (pediatric)
CPT/HCPCS: 72100; 96372; 96374; 99283; A4216

== ENCOUNTER → 2021-11-14 | Outpatient (CLI) | payer MEDICARE, OTHER, SELFPAY ==
--- NOTE | 2021-11-14 09:35 | RAD_ITS ---
STUDY: X-RAY CHEST REASON FOR EXAM: Male, 76 years old. [place]s TECHNIQUE: PA and lateral views of the chest. COMPARISON: Comparison is made with prior study dated 07/03/2020. FINDINGS: Hyperinflation. Scattered calcified granulomas. No acute abnormality is seen. There is no demonstrated pleural abnormality. Normal size heart. Normal mediastinum and gisela. Normal visualized pulmonary arteries. There is atherosclerotic calcification of the aortic arch with tortuosity. There are diffuse degenerative changes of the visualized thoracic spine. Normal visualized ribs, clavicles, and shoulders. There is no demonstrated abnormality of the visualized soft tissue structures of the upper abdomen. RAD/Chest PA and Lateral IMPRESSION: Hyperinflation. Scattered calcified granulomas. Electronically Signed: Ramos Galan MD at 14:08 EDT ,
[2021-11-14 09:54] LABS: Absolute Lymphocyte Count 2.09 X10^3/uL (0.83-4.51); Absolute Neutrophil Count 3.6 X10^3/uL (2.0-7.7); Basophil# 0.07 X10^3/uL; Basophil% 1.1 % (0-1); Eosinophil# 0.35 X10^3/uL; Eosinophils% 5.3 % (0-5); Hematocrit 47.4 % (40-54); Lymphocyte # 2.09 X10^3/ul (0.83-4.51); Lymphocyte % 31.8 % (19-41); Mean Corp Hgb Conc 33.8 g/dL (32-36); Mean Corpuscular Hgb 31.2 pg (27.0-32.0); Mean Corpuscular Volume 92.4 fL (80-94); Mean Platelet Vol. 10.6 fl (6.2-12.0); Monocyte# 0.45 X10^3/uL; Monocyte% 6.8 % (0-10); NRBC Flagged by Analyzer 0 % (0-5); Neutrophil # 3.59 X10^3/uL (2.7-7.7); Neutrophil % 54.7 % (47-70); Platelet Count 212 K/mm3 (150-450); RBC Distribution Width CV 13.2 % (11.6-14.6); RBC Distribution Width SD 44.6 fl (35.1-43.9); Red Blood Count 5.13 M/mm3 (4.6-6.2); White Blood Count 6.6 K/mm3 (4.4-11.0)
[2021-11-14 10:03] LABS: Prothrombin Time (Protime)PT. 13.3 SECONDS (11.7-14.9)
[2021-11-14 10:20] LABS: Anion Gap 5 (5-15); BUN 14 mg/dL (7-18); BUN/Creat Ratio 13.2 RATIO (10-20); Calcium,Total 8.8 mg/dL (8.5-10.1); Chloride 108 mmol/L (98-107); Creatinine, Serum 1.06 mg/dL (0.70-1.30); EST Glomerular Filtration Rate 73 mL/min (>60); Est Glom Filt Rate - Afr Amer 88 mL/min (>60); Glucose 112 mg/dL (74-106); Potassium 4.2 mmol/L (3.5-5.1); Sodium Level 140 mmol/L (136-145)
== END | disposition home or self-care (01) ==
LOC: LAB 09:14
PROVIDERS: PCP Family Medicine; Visit Provider Physician Assistant Medical
DX: R07.9 Chest pain, unspecified (principal); I25.10 Atherosclerotic heart disease of native coronary artery without angina pectoris; I10 Essential (primary) hypertension; E78.00 Pure hypercholesterolemia, unspecified
CPT/HCPCS: 36415; 71046; 80048; 85025; 85610; 85730

== ENCOUNTER 2021-11-19 07:29 | Day surgery (SDC) | payer MEDICARE, OTHER, SELFPAY ==
[2021-11-16 08:37] VITALS: BMI 23.6
--- NOTE | 2021-11-19 09:06 | CL.D_ITS ---
Patient Name: LYNN SHEPARD Study Date: 11/19/2021 Performing: Adam Maloney MD Ht: 72 inches 183 cm : 1945 Wt: 174.4 lbs 79 kg Age: 76 Gender: male BSA: 2.01 PROCEDURE(S) PERFORMED DC02-([id number])LHC/COR CLINICAL PROFILE AND INDICATIONS Indications: Suspected CAD Heart Failure: None Stress/Imaging Stress/Image Study Performed: No CAD Presentations: Stable angina. CONCLUSIONS Non obstructive coronary arteries Previously placed stent patent.Normal LVEF RECOMMENDATIONS Medical therapy DESCRIPTION OF PROCEDURE The patient arrived to the procedure lab. The risks and benefits of the procedure as well as a full d escription of our services here and current unavailability of surgical backup were fully explained to the patient and/or their significant other prior to the catheterization. The Timeout was completed, verifying the correct patient and procedure. The patient's procedural site was prepped and draped in the usual fashion. Local anesthetic was given subcutaneously to right radial region with Lidocaine 2% . Using a modified Seldinger technique, arterial access was obtained via the right radial artery, a 6 Fr sheath was inserted. Left Coronary Artery selective angiography was performed in multiple views u sing a 5 Fr. 4.0 [place] catheter. Right Coronary Artery selective angiography was then performed in mu ltiple views using a 5 Fr. 4.0 [place] catheter. Left Ventriculography was performed in VARGAS projection using a 5 Fr. Pigtail catheter. LV to AO pullback pressures were then recorded.The arterial sheath was pulled and a TR Band was applied for hemostasis CORONARY ANGIOGRAPHY DOMINANCE: Right Dominant LEFT HEART ASSESSMENT Left Ventricular Ejection Fraction: by LV Gram 55 % Normal Left Ventricular systolic function LEFT MAIN: Angiographically normal LEFT ANTERIOR DESCENDING ARTERY: Mild luminal irregularities MID LAD: Previously placed stent is patent CIRCUMFLEX ARTERY: Mild luminal irregularities less than 30% RIGHT CORONARY ARTERY: PROX RCA: 40 % Stenosis MID RCA: Mild luminal irregularities DISTAL RCA: Mild luminal irregularities COMPLICATIONS No Complications PROCEDURE MEDICATIONS Fentanyl 50 mcg IV Versed 1 mg IV Oxygen: 2 L/min via nasal cannula Baby Aspirin (81mg) 1 Tabs PO @ 11/19/2021 07:47:33 SUMMARY OF HEMODYNAMIC DATA Time AIR REST ECG 07:46:33 ECG 08:27:09 AO 138/82 (107) SA 08:52:05 LV 131/18, 29 08:57:17 LV 130/18, 26 08:57:25 LV 140/23, 31 08:58:04 LVp 135/19, 29 08:58:10 AOp 148/83 (109) 08:58:17 Signed By Adam Maloney MD On 11/19/2021 09:05:57 Adam Maloney MD
== END 2021-11-19 13:10 | disposition home or self-care (01) ==
LOC: CLSP 07:31
PROVIDERS: PCP Family Medicine; Referring Provider Internal Medicine Cardiovascular Disease; Visit Provider Internal Medicine Cardiovascular Disease
DX: I25.119 Atherosclerotic heart disease of native coronary artery with unspecified angina pectoris (principal); I10 Essential (primary) hypertension; E78.5 Hyperlipidemia, unspecified; G47.33 Obstructive sleep apnea (adult) (pediatric); R07.9 Chest pain, unspecified; E78.00 Pure hypercholesterolemia, unspecified; I34.1 Nonrheumatic mitral (valve) prolapse; Z87.891 Personal history of nicotine dependence; Z82.49 Family history of ischemic heart disease and other diseases of the circulatory system
CPT/HCPCS: 93454; 99152; 99153; J7040; Q9967; C1769; C1894

== ENCOUNTER → 2021-12-19 | Outpatient (CLI) | payer MEDICARE, OTHER, SELFPAY ==
--- NOTE | 2021-12-19 | LES_PTH ---
PATIENT: LYNN SHEPARD LOC: [facility] U#:[id number] AGE/SX: 76/M ROOM: RE12/19/[address]: Dr. Chuy Hughes MD : 1945 BED: DIS: 12/19/2021 SPEC #: [id number] RECD: 12/19/21 14:21 STATUS: DANILO MARINA #: [id number] SYLWIA: 12/19/21 00:[address]: Chuy Hughes DEPT: SURGICAL PATHOLOGY RECD BY: Axel Orozco ENTERED: 12/20/21 08:51 SP TYPE: Lesion OTHR DR: Dr. Azam Haynes, DO Tissues: A - Skin of external ear, NOS B - Skin of external ear, NOS Procedures: Surgery Specimen Level IV HEADER OPERATION: Bilateral ear shave biopsy PRE-OP DIAGNOSIS: Bilateral ear lesions TISSUE SUBMITTED: A. Right ear lesion, B. Left ear lesion MICROSCOPIC DIAGNOSIS A. Right ear lesion, biopsy: Benign verrucoid keratosis. Epidermal inclusion cyst. B. Left ear lesion, biopsy: Consistent with verrucoid keratosis with actinic change. Organisms consistent with Tinea. See Comment. AM: lloyd 12/21/2021 COMMENT B. GMS stain with matched control supports the diagnosis MICROSCOPIC DESCRIPTION Slides are reviewed. GROSS DESCRIPTION A. Received in fixative is one container labeled with the patient's name and designated right ear lesion The specimen consists of a piece of burns white skin measuring 0.5 x 0.5 x 0.2 cm. The specimen is bisected and submitted entirely in one cassette. B. Received in fixative is one container labeled with the patient's name and designated left ear lesion. The specimen consists of a shave biopsy of burns white skin measuring 0.5 x 0.2 x 0.1. The entire specimen is submitted in one cassette. SJ:cc 12/20/21 TC:5 CPT: 69646j8, 15544
== END | disposition home or self-care (01) ==
LOC: LABSPEC 14:27
PROVIDERS: PCP Family Medicine; Visit Provider Surgery
DX: H93.93 Unspecified disorder of ear, bilateral (principal)
CPT/HCPCS: 88305

== ENCOUNTER 2022-01-09 23:58 | Emergency (ER) | payer MEDICARE, OTHER, SELFPAY ==
[2022-01-09 23:59] VITALS: BP 184/83; PULSE 65; RESP 18; TEMP 36.8; O2SAT 100; BMI 23.7
[2022-01-10 00:09] VITALS: BP 198/94; PULSE 65; RESP 18; O2SAT 98
--- NOTE | 2022-01-10 00:35 | EKG12_ITS ---
Test Reason : DYSRHYTHMIA Blood Pressure : / mmHG Vent. Rate : 058 BPM Atrial Rate : 058 BPM P-R Int : 222 ms QRS Dur : 084 ms QT Int : 394 ms P-R-T Axes : 051 055 050 degrees QTc Int : 386 ms Sinus bradycardia with sinus arrhythmia with 1st degree A-V block Otherwise normal ECG Confirmed by CHRISTEN BARRETO, SAAD ([id number]), assistant editor CLARKE SHAH ([id number]) on 01/11/2022 10:01:52 AM Referred By: TIM Confirmed By:MYRON VELÁSQUEZ MD
[2022-01-10] MEDS: hydrALAZINE 20 MG/ML Vial 10 MG IV (01:01)
[2022-01-10] MEDS: cloNIDine HCl 0.2 MG Tablet PO (01:04)
[2022-01-10 01:05] LABS: Absolute Lymphocyte Count 2.22 X10^3/uL (0.83-4.51); Absolute Neutrophil Count 3.7 X10^3/uL (2.0-7.7); Basophil# 0.05 X10^3/uL; Basophil% 0.7 % (0-1); Eosinophil# 0.26 X10^3/uL; Eosinophils% 3.8 % (0-5); Hematocrit 46.3 % (40-54); Hemoglobin 15.7 g/dL (13.0-16.5); Lymphocyte # 2.22 X10^3/ul (0.83-4.51); Lymphocyte % 32.7 % (19-41); Mean Corp Hgb Conc 33.9 g/dL (32-36); Mean Corpuscular Hgb 31.2 pg (27.0-32.0); Mean Corpuscular Volume 91.9 fL (80-94); Mean Platelet Vol. 10.5 fl (6.2-12.0); Monocyte# 0.54 X10^3/uL; NRBC Flagged by Analyzer 0 % (0-5); Neutrophil % 54.7 % (47-70); Platelet Count 177 K/mm3 (150-450); RBC Distribution Width SD 43.2 fl (35.1-43.9); Red Blood Count 5.04 M/mm3 (4.6-6.2); White Blood Count 6.8 K/mm3 (4.4-11.0)
[2022-01-10 01:15] VITALS: BP 171/87; PULSE 65; RESP 16; O2SAT 98
[2022-01-10 01:22] LABS: Anion Gap 7 (5-15); BUN 18 mg/dL (7-18); BUN/Creat Ratio 16.7 RATIO (10-20); Calcium,Total 9.1 mg/dL (8.5-10.1); Chloride 109 mmol/L (98-107); Creatinine, Serum 1.08 mg/dL (0.70-1.30); EST Glomerular Filtration Rate 71 mL/min (>60); Est Glom Filt Rate - Afr Amer 86 mL/min (>60); Estimated Creatinine Clearance 65.86 ml/min; Glucose 118 mg/dL (74-106); Potassium 3.7 mmol/L (3.5-5.1); Sodium Level 142 mmol/L (136-145); Troponin-I HS 12 pg/mL (3.0-78.0)
[2022-01-10 01:40] VITALS: BP 153/80; PULSE 67; RESP 18; O2SAT 98
--- NOTE | 2022-01-10 01:59 | EDS_ITS ---
HPI History of Present Illness Chief Complaint: Hypertension Narrative Narrative: Patient is a 76-year-old male with history of hypertension hyperlipidemia CAD and degenerative disc disease. He states he takes metoprolol 50 mg twice a day and lisinopril 10 mg once a day. He reports he has been taking his medications as directed. He denies any illicit drug use or excessive stimulant use. Patient states that he checked his blood pressure this evening and it was approximately 197/110. He states that he did not have any chest pain headache change in vision or shortness of breath with this but was concerned based on the significant elevation from his baseline and therefore comes in for evaluation. [facility] Medical History Atherosclerosis of coronary artery of [place] heart without angina pectoris Back pain Back pain due to injury Cervical cord compression with myelopathy Cervical disc disease Chronic back pain Essential (primary) hypertension Family history of colon cancer GERD (gastroesophageal reflux disease) Hyperlipidemia Nonrheumatic mitral (valve) prolapse Obstructive sleep apnea Painful neck Seborrheic keratoses Swallowing problem Thyroid goiter Home Medications coenzyme [id number] 100 mg-20 mg capsule 1 ea PO DAILY 03/25/13 [History Last Taken 07/03/20] multivitamin with folic acid 400 mcg tablet 1 tab PO DAILY 03/25/13 [History Last Taken 07/03/20] omega-3 fatty acids 1,000 mg capsule 1,000 mg PO DAILY 08/20/18 [History Last Taken 07/03/20] aspirin 81 mg chewable tablet 81 mg PO DAILY #90 tabs 08/15/20 [Rx Last Taken 11/19/21] nitroglycerin 0.4 mg sublingual tablet (Nitrostat) 0.4 mg sublingual Q5-15M PRN chest pain #25 tabs 08/14/21 [Rx Last Taken Unknown] atorvastatin 80 mg tablet 80 mg PO QHS #90 tabs 10/03/21 [Rx Last Taken 11/19/21] clopidogrel 75 mg tablet 75 mg PO DAILY #90 tabs 10/03/21 [Rx Last Taken 11/19/21] lisinopril 10 mg tablet 10 mg PO DAILY #90 tabs 10/03/21 [Rx Last Taken 11/19/21] metoprolol tartrate 50 mg tablet 50 mg PO BID #180 tabs 10/03/21 [Rx Last Taken 11/19/21] pregabalin 50 mg capsule 50 mg PO QHS 11/13/21 [History Last Taken Unknown] Allergy/AdvReac Type Severity Reaction Status Date / Time niacin Allergy Extreme Verified 01/10/22 00:01 [From Niaspan Itching Extended-Release] cyclobenzaprine AdvReac Unknown Heart Verified 01/10/22 00:01 feels like wants to stop Family History Father CAD (coronary artery disease) Diabetes Heart disease Myocardial infarction Hypertension Mother Heart disease Diabetes CVA (cerebral vascular accident) Sister Breast cancer Colon cancer Brother Colon cancer Surgical History H/O right knee surgery History of coronary artery stent placement (05/16/10) History of facial surgery History of left heart catheterization (11/19/21) History of orthopedic surgery History of shoulder surgery Social History household members: spouse housing: house current occupational status: retired Smoking Status: Former smoker how long ago did patient quit smokin alcohol intake: former substance use type: does not use what type of physical activity do you participate in: walking and bicycling frequency: daily seatbelt use: always do you feel safe at home: Yes ROS ROS ED Constitutional Constitutional ED: Denies chills or fever(s) Eyes Eyes: Denies blurry vision or change in vision ENT ENT ED: Denies sore throat Cardiovascular Cardiovascular: Denies chest pain Respiratory/Chest Respiratory/Chest: Denies cough or dyspnea Gastrointestinal Gastrointestinal: Denies abdominal pain, diarrhea, nausea or vomiting Genitourinary Genitourinary ED: Denies dysuria Musculoskeletal Musculoskeletal: Reports neck pain; Denies myalgias Integumentary Denies rash Neurologic Neurologic: Denies headache(s) or paresthesias Psychiatric Psychiatric: Denies anxiety Hematologic/Lymphatic Hematologic/Lymphatic: Reports easy bleeding and easy bruising EXAM Physical Exam Const Vital Signs: 01/09/22 23:59 01/10/22 00:09 01/10/22 00:09 Temperature 98.3 F Temperature Source Temporal Pulse Rate 65 65 Respiratory Rate 18 18 Respiratory Effort Normal Respiratory Pattern Normal Blood Pressure 184/83 H 198/94 H Blood Pressure Mean 116 128 Pulse Ox 100 98 Oxygen Delivery Method Room Air Room Air 01/10/22 01:15 01/10/22 01:40 01/10/22 02:35 Temperature Temperature Source Pulse Rate 65 67 61 Respiratory Rate 16 18 15 Respiratory Effort Respiratory Pattern Blood Pressure 171/87 H 153/80 H 143/81 H Blood Pressure Mean 115 104 Pulse Ox 98 98 97 Oxygen Delivery Method Room Air Room Air Positive well nourished and well developed General Appearance ED: well developed HEENT Reports moist mucous membranes Eyes PERRL and EOMs intact bilaterally Neck supple Resp normal respiratory effort and clear to auscultation bilaterally Cardio regular rate and regular rhythm Rate: other Other Details: Radial pulses are plus 2 out of 4 bilaterally are equal and symmetric GI normal to inspection, nondistended, normoactive bowel sounds, non-tender and non-distended GI Narrative: No voluntary guarding or rigidity no pulsatile mass Auscultation: normoactive bowel sounds Palpation: soft Extremity normal to inspection Extremity Narrative: No asymmetric edema no pitting edema negative Homans' sign bilaterally Neuro oriented x3, CN's II-XII intact bilaterally and no sensory deficits noted Neuro Narrative: Cranial nerves II through XII are grossly intact there are no focal neurologic deficits. No pronator drift no dysmetria no truncal ataxia. NIH stroke scale score of 0. Sensorium / Orientation: alert Motor Exam: strength 5/5 throughout Psych mental status grossly normal Skin no rashes or lesions noted MDM MDM MDM Narrative Medical decision making narrative: Patient presented to the ER hypertensive but otherwise with normal neurologic exam and no signs of endorgan damage. However based on the fact he states his blood pressure is typically normally approximately 140/80 I did elect to perform a basic endorgan damage work-up. EKG is sinus rhythm troponin is normal and patient does not have any signs of acute kidney injury. He was given hydralazine as his heart rate was already low at 60 and clonidine. On reevaluation he is awake and alert and maintains a normal neurologic exam but blood pressure has reduced to his baseline at 143/81. Therefore as he has no signs of endorgan damage and has had improvement of his hypertension there is no need for admission and patient is otherwise safe for discharge. Lab Data Attestation: I reviewed the patient's lab results. Labs: Laboratory Results - last 24 hr 01/10/22 01/10/22 00:17 00:17 WBC 6.8 RBC 5.04 Hgb 15.7 Hct 46.3 MCV 91.9 MCH 31.2 MCHC 33.9 RDW Std Deviation 43.2 RDW Coeff of Leeroy 13.0 Plt Count 177 MPV 10.5 Immature Gran % (Auto) 0.100 Neut % (Auto) 54.7 Lymph % (Auto) 32.7 [place] % (Auto) 8.0 Eos % (Auto) 3.8 Baso % (Auto) 0.7 Absolute Neuts (auto) 3.7 Absolute Lymphs (auto) 2.22 Nucleated RBC % 0 Sodium 142 Potassium 3.7 Chloride 109 H Carbon Dioxide 26.0 Anion Gap 7 BUN 18 Creatinine 1.08 Estim Creat Clear Calc 65.86 Est GFR (MDRD) Af Amer 86 Est GFR (MDRD) Non-Af 71 BUN/Creatinine Ratio 16.7 Glucose 118 H Calcium 9.1 Troponin I High Sens 12 Discharge Plan Triage Chief Complaint: Hypertension ED Provider: Keshawn Davidson Dx/Rx/DC Orders Clinical Impression: Accelerated hypertension, Hyperlipidemia, Cervical disc disease Instructions: Controlling High Blood Pressure Prescriptions: No Action omega-3 fatty acids 1,000 mg capsule 1,000 mg PO DAILY aspirin 81 mg tablet,chewable 81 mg PO DAILY Qty: 90 3RF nitroglycerin [Nitrostat] 0.4 mg tablet, sublingual 0.4 mg sublingual Q5-15M PRN (Reason: chest pain) Qty: 25 3RF Rx Instructions: do not exceed 3 doses per episode pregabalin 50 mg capsule 50 mg PO QHS multivitamin with folic acid 1 TABLET tablet 1 tab PO DAILY Label Comments: Vitamins coenzyme [id number] 1 EACH capsule 1 ea PO DAILY Label Comments: Supplement for cholestrol atorvastatin 80 mg tablet 80 mg PO QHS Qty: 90 3RF clopidogrel 75 mg tablet 75 mg PO DAILY Qty: 90 3RF lisinopril 10 mg tablet 10 mg PO DAILY Qty: 90 3RF Rx Instructions: 10 mg PO daily; metoprolol tartrate 50 mg tablet 50 mg PO BID Qty: 180 3RF Primary Care Provider: Azam Haynes Referrals: Azam Haynes, DO [Primary Care Provider] - Activity Restrictions/Additional Instructions: Please continue your medications as directed by your family doctor but discussed with him about increasing your lisinopril or adding a third blood pressure medication for stricter blood pressure control and return to the ER should you have any further concerns Disposition Disposition: Home, Self Care Discharge Date/Time: 01/10/22 02:35
[2022-01-10] MEDS: Orphenadrine 60 MG/2 ML Ampul IV (02:13)
[2022-01-10 02:35] VITALS: BP 143/81; PULSE 61; RESP 15; O2SAT 97
== END 2022-01-10 02:35 | disposition home or self-care (01) ==
PROVIDERS: Emergency Provider Emergency Medicine; PCP Family Medicine; Visit Provider Emergency Medicine
DX: I10 Essential (primary) hypertension (principal); I25.10 Atherosclerotic heart disease of native coronary artery without angina pectoris; M50.80 Other cervical disc disorders, unspecified cervical region; Z87.891 Personal history of nicotine dependence; M54.9 Dorsalgia, unspecified; E78.5 Hyperlipidemia, unspecified; Z95.5 Presence of coronary angioplasty implant and graft; Z80.0 Family history of malignant neoplasm of digestive organs
CPT/HCPCS: 80048; 84484; 85025; 93005; 99284; A4216

== ENCOUNTER → 2022-04-17 | Outpatient (CLI) | payer MEDICARE, OTHER, SELFPAY ==
[2022-04-17 15:37] LABS: Basophil# 0.06 X10^3/uL; Eosinophils% 8.1 % (0-5); Hematocrit 48.9 % (40-54); Hemoglobin 16.3 g/dL (13.0-16.5); Lymphocyte % 32.6 % (19-41); Mean Corp Hgb Conc 33.3 g/dL (32-36); Mean Corpuscular Volume 93.1 fL (80-94); Mean Platelet Vol. 10.9 fl (6.2-12.0); Monocyte# 0.59 X10^3/uL; Monocyte% 9.6 % (0-10); NRBC Flagged by Analyzer 0 % (0-5); Neutrophil # 2.97 X10^3/uL (2.7-7.7); Neutrophil % 48.4 % (47-70); Platelet Count 195 K/mm3 (150-450); RBC Distribution Width SD 44.7 fl (35.1-43.9); Red Blood Count 5.25 M/mm3 (4.6-6.2); White Blood Count 6.1 K/mm3 (4.4-11.0)
[2022-04-17 16:00] LABS: ALB/GLOB Ratio 1.2 RATIO (0.9-2.4); AST(SGOT) 36 U/L (15-37); Alanine Aminotransfer ALT/SGPT 50 U/L (16-61); Albumin, Serum 3.7 g/dL (3.2-5.0); Alkaline Phosphatase 79 U/L (45-117); Anion Gap 6 (5-15); BUN 15 mg/dL (7-18); BUN/Creat Ratio 15.2 RATIO (10-20); Bilirubin, Direct 0.28 mg/dL (0.00-0.30); Calcium,Total 9.3 mg/dL (8.5-10.1); Chloride 108 mmol/L (98-107); Cholesterol 145 mg/dL (200); Creatinine, Serum 0.99 mg/dL (0.70-1.30); EST Glomerular Filtration Rate 78 mL/min (>60); Est Glom Filt Rate - Afr Amer 95 mL/min (>60); Glucose 103 mg/dL (74-106); High Density Lipoprotein 45 mg/dL; Potassium 4.7 mmol/L (3.5-5.1); Protein, Total 6.7 g/dL (6.4-8.2); Sodium Level 141 mmol/L (136-145); Triglycerides 131 mg/dL; Very Low Density Lipoprotein 26 mg/dL (5-40)
== END | disposition home or self-care (01) ==
LOC: BIMLAB 13:58
PROVIDERS: PCP Family Medicine; Referring Provider Family Medicine; Visit Provider Family Medicine
DX: I10 Essential (primary) hypertension (principal); L23.81 Allergic contact dermatitis due to animal (cat) (dog) dander
CPT/HCPCS: 80053; 80061; 82248; 85025

== ENCOUNTER 2022-09-20 13:06 | Emergency (ER) | payer MEDICARE, OTHER, SELFPAY ==
[2022-09-20 13:06] VITALS: BP 161/81; PULSE 65; RESP 16; TEMP 36.9; O2SAT 100; BMI 24.7
--- NOTE | 2022-09-20 13:25 | CT_ITS ---
STUDY: CT ABDOMEN AND PELVIS WITHOUT CONTRAST REASON FOR EXAM: Male, 77 years old. Bilateral flank pain. Urinary frequency. RADIATION DOSAGE (If Supplied By Facility): CTDIvol = ( 7.31 ) mGy, DLP = ( 374.58 ) mGycm TECHNIQUE: Transaxial images were obtained from the dome of the diaphragm to the symphysis pubis without oral contrast, and without intravenous contrast. Sagittal and coronal images were reconstructed. Individualized dose optimization techniques were used for this CT. COMPARISON: None. FINDINGS: The visualized lung bases are unremarkable. Coronary artery calcification. Normal liver. Normal gallbladder and extrahepatic biliary system. Normal spleen. Normal pancreas. Normal bilateral adrenal glands. 2 mm nonobstructive calculus in the midpole calyx of the right kidney. Small bilateral parapelvic renal cysts. Normal visualized stomach. Normal small intestine. There are multiple colonic diverticula consistent with diverticulosis. The appendix is visualized and appears normal. There is scattered atherosclerotic calcification of the abdominal aorta, without a demonstrated aneurysm. Normal inferior vena cava. Normal retroperitoneum. Normal urinary bladder. There are prostatic calcifications. Small bilateral inguinal rings containing fat more prominent on the right side. Normal osseous structures. CT/Abdomen/Pelvis without Cont IMPRESSION: 2 mm nonobstructive calculus in the midpole calyx of the right kidney. Prostatic calcification. Sigmoid diverticulosis. Electronically Signed: Ramos Galan MD at 14:37 EDT ,
--- NOTE | 2022-09-20 13:26 | EDS_ITS ---
HPI History of Present Illness Chief Complaint: Complaint Narrative Narrative: 77-year-old male past medical history of coronary artery disease with 2 stents, takes Plavix, presents with 1 weeks worth of bladder pain that has been worsening. He states it radiates up both sides of his abdomen. No exacerbating or alleviating factors. He denies any fevers or chills, no nausea or vomiting, no dysuria or hematuria, but he may have urinary frequency. He denies any problems with bowel movements, no diarrhea, no other symptoms. It began as sharp and stabbing pain, and has progressed to somewhat dull and achy. He went to urgent care today and they told him to come to the emergency department for diagnostics. [facility] Medical History Atherosclerosis of coronary artery of [place] heart without angina pectoris Back pain Back pain due to injury Cervical cord compression with myelopathy Cervical disc disease Chronic back pain Essential (primary) hypertension Family history of colon cancer GERD (gastroesophageal reflux disease) Hyperlipidemia Nonrheumatic mitral (valve) prolapse Obstructive sleep apnea Painful neck Scabies Seborrheic keratoses Swallowing problem Thyroid goiter Home Medications coenzyme [id number] 100 mg-20 mg capsule 1 ea PO DAILY 03/25/13 [History Last Taken 07/03/20] multivitamin with folic acid 400 mcg tablet 1 tab PO DAILY 03/25/13 [History Last Taken 07/03/20] omega-3 fatty acids 1,000 mg capsule 1,000 mg PO DAILY 08/20/18 [History Last Taken 07/03/20] aspirin 81 mg chewable tablet 81 mg PO DAILY #90 tabs 08/15/20 [Rx Last Taken 11/19/21] nitroglycerin 0.4 mg sublingual tablet (Nitrostat) 0.4 mg sublingual Q5-15M PRN chest pain #25 tabs 08/14/21 [Rx Last Taken Unknown] atorvastatin 80 mg tablet 80 mg PO QHS #90 tabs 10/03/21 [Rx Last Taken 11/19/21] clopidogrel 75 mg tablet 75 mg PO DAILY #90 tabs 10/03/21 [Rx Last Taken 11/19/21] metoprolol tartrate 50 mg tablet 50 mg PO BID #180 tabs 10/03/21 [Rx Last Taken 11/19/21] lisinopril 10 mg tablet 10 mg PO DAILY #90 tabs 01/24/22 [Rx Last Taken Unknown] pregabalin 50 mg capsule 50 mg PO QHS PRN Neuropathy #30 caps 07/26/22 [Rx Last Taken Unknown] Allergy/AdvReac Type Severity Reaction Status Date / Time niacin Allergy Extreme Verified 09/20/22 13:08 [From Niaspan Itching Extended-Release] cyclobenzaprine AdvReac Unknown Heart Verified 09/20/22 13:08 feels like wants to stop Family History Father CAD (coronary artery disease) Diabetes Heart disease Myocardial infarction Hypertension Mother Heart disease Diabetes CVA (cerebral vascular accident) Sister Breast cancer Colon cancer Brother Colon cancer Surgical History H/O right knee surgery History of coronary artery stent placement (05/16/10) History of facial surgery History of left heart catheterization (11/19/21) History of orthopedic surgery History of shoulder surgery Social History household members: spouse housing: house current occupational status: retired Smoking Status: Former smoker how long ago did patient quit smokin alcohol intake: former substance use type: does not use what type of physical activity do you participate in: walking and bicycling frequency: daily seatbelt use: always do you feel safe at home: Yes ROS ROS ED ROS Narrative Constitutional: No fever, no chills. HEENT: No sore throat. No neck pain. No loss of vision. No rhinorrhea. Cardiovascular: No chest pain. No palpitations. No pedal edema. Respiratory: No cough, no shortness of breath. Abdominal: No abdominal pain. No nausea. No vomiting. Genitourinary: No dysuria. No hematuria. Urinary frequency. Bladder pain. Musculoskeletal: No myalgias. No arthralgias. Neurologic: No headaches. No dizziness. No lightheadedness. Skin: No rash. No change in color. Psychiatric: No depression. No anxiety. EXAM Physical Exam Narrative Exam Narrative: Afebrile. Vital signs noted. Nontoxic-appearing. HEENT: Normocephalic. Atraumatic. PERRL, EOMI. Neck soft and supple. No point tenderness or step off. Cardiovascular: Regular rate and rhythm. No murmurs, rubs, or gallops appreciated. Respiratory: No tachypnea. Lungs clear to auscultation bilaterally. Gastrointestinal: Abdomen soft, nontender, with normoactive bowel sounds. No rebound or guarding. Neurological: Awake. Alert. Nonfocal, nonlateralizing. Skin: No rash. Normal color. No pallor. Musculoskeletal: No pedal edema. Full range of motion extremities. Const Vital Signs: 09/20/22 13:06 Temperature 98.4 F Temperature Source Temporal Pulse Rate 65 Respiratory Rate 16 Blood Pressure 161/81 H Blood Pressure Mean 107 Pulse Ox 100 Oxygen Delivery Method Room Air MDM MDM MDM Narrative Medical decision making narrative: In the differential diagnosis is pyelonephritis versus bladder spasms versus nonspecific abdominal pain. Comprehensive work-up was pursued. I will send a urinalysis to look for infection or blood. I do feel CT imaging is indicated. I will check a CBC and a BMP to look at his creatinine and his BUN. He was bolused normal saline 1 L intravenously. I reviewed the patient's laboratory work, he has a normal white count of 5.6, hemoglobin normal at 16.0 with hematocrit 46.8. Platelet count normal at 187. In review of his CMP, he has a chloride that is elevated at 108 which I think is nonspecific, normal BUN of 13 and normal creatinine of 0.88, glucose appropriately elevated at 109 with a normal anion gap of 6. Liver function tests are grossly normal. Urinalysis is negative for infection, so I do not feel that antibiotics are indicated. There is no blood in his urine either so I have lower suspicion for ureterolithiasis, and additionally his pain is bila teral. CT of the abdomen and pelvis was obtained and I reviewed the radiology report which shows prostatic calcifications and sigmoid diverticulosis but no evidence of acute diverticulitis. He does have a right renal stone that is nonobstructing. I do not feel that this is the cause of his pain. I think he has more of a nonspecific abdominal pain. As it is been ongoing for 1 week, I do feel that he can be discharged safely home to follow-up with his primary care provider. We discussed the use of Bentyl, but I do not want to cause the patient constipation by slowing down his transit time with dicyclomine. At this point in time, I do feel he be discharged safely home with follow-up. I do not feel that he requires observation. Additionally, his abdomen remains soft. Return instructions to the emergency department were reviewed. Disposition is discharged home in stable condition. History & Record Review Discussion w/independent historian: Patient and Family Additional record(s) reviewed:: Prior ED visit Lab Data Attestation: I reviewed the patient's lab results. Labs: Laboratory Results - last 24 hr 09/20/22 09/20/22 09/20/22 13:45 13:50 13:50 WBC 5.6 RBC 5.15 Hgb 16.0 Hct 46.8 MCV 90.9 MCH 31.1 MCHC 34.2 RDW Std Deviation 43.3 RDW Coeff of Leeroy 13.1 Plt Count 187 MPV 10.1 Immature Gran % (Auto) 0.200 Neut % (Auto) 58.0 Lymph % (Auto) 27.7 [place] % (Auto) 9.1 Eos % (Auto) 4.1 Baso % (Auto) 0.9 Absolute Neuts (auto) 3.2 Absolute Lymphs (auto) 1.55 Nucleated RBC % 0 Sodium 139 Potassium 4.2 Chloride 108 H Carbon Dioxide 25.0 Anion Gap 6 BUN 13 Creatinine 0.88 Estim Creat Clear Calc 77.25 Est GFR (MDRD) Af Amer 108 Est GFR (MDRD) Non-Af 89 BUN/Creatinine Ratio 14.7 Glucose 109 H Calcium 9.0 Total Bilirubin 0.90 AST 42 H ALT 45 Alkaline Phosphatase 79 Total Protein 7.0 Albumin 3.6 Globulin 3.4 Albumin/Globulin Ratio 1.1 Urine Color Yellow Urine Clarity Clear Urine pH 6.0 Ur Specific [place] 1.015 Urine Protein Negative Urine Glucose (UA) Normal Urine Ketones Negative Urine Occult Blood Negative Urine Nitrite Negative Urine Bilirubin Negative Urine Urobilinogen Normal Ur Leukocyte Esterase Negative Urine RBC 0 SEEN Urine WBC 0 SEEN Ur Squamous Epith Cells 0 SEEN Urine Bacteria 0 SEEN Urine Mucus 0 SEEN Radiography Diagnostic Testing: Clinical Impression(s) from Imaging Studies Abdomen/Pelvis CT 09/20/22 13:25 IMPRESSION: 2 mm nonobstructive calculus in the midpole calyx of the right kidney. Prostatic calcification. Sigmoid diverticulosis. Electronically Signed: Ramos Galan MD at 14:37 EDT , Discharge Plan Triage Chief Complaint: Complaint ED Provider: Fer Carr Dx/Rx/DC Orders Clinical Impression: Abdominal pain, Urinary frequency Instructions: ED Abdominal Pain Unkn Cause Male... Prescriptions: No Action omega-3 fatty acids 1,000 mg capsule 1,000 mg PO DAILY aspirin 81 mg tablet,chewable 81 mg PO DAILY Qty: 90 3RF nitroglycerin [Nitrostat] 0.4 mg tablet, sublingual 0.4 mg sublingual Q5-15M PRN (Reason: chest pain) Qty: 25 3RF Rx Instructions: do not exceed 3 doses per episode multivitamin with folic acid 1 TABLET tablet 1 tab PO DAILY Label Comments: Vitamins coenzyme [id number] 1 EACH capsule 1 ea PO DAILY Label Comments: Supplement for cholestrol atorvastatin 80 mg tablet 80 mg PO QHS Qty: 90 3RF clopidogrel 75 mg tablet 75 mg PO DAILY Qty: 90 3RF metoprolol tartrate 50 mg tablet 50 mg PO BID Qty: 180 3RF lisinopril 10 mg tablet 10 mg PO DAILY Qty: 90 3RF Rx Instructions: 10 mg PO daily; pregabalin 50 mg capsule 50 mg PO QHS PRN (Reason: Neuropathy) Qty: 30 0RF Primary Care Provider: Azam Haynes Referrals: Azam Haynes, DO [Primary Care Provider] - 3-5 Days if not improving Disposition Disposition: Home, Self Care
[2022-09-20] MEDS: 0.9% Normal Saline 1,000 ML 1000 ML IV (13:54)
[2022-09-20 13:59] LABS: Bacteria 0 SEEN /hpf (None Seen); Mucous, Urine 0 SEEN /hpf (<or=2+); Red Blood Cells-Urine 0 SEEN /hpf (0-5); Squamous Epithelial Cells - UA 0 SEEN /hpf (0-5); White Blood Cells 0 SEEN /hpf (0-5)
[2022-09-20 14:00] LABS: Absolute Lymphocyte Count 1.55 X10^3/uL (0.83-4.51); Absolute Neutrophil Count 3.2 X10^3/uL (2.0-7.7); Basophil% 0.9 % (0-1); Eosinophils% 4.1 % (0-5); Hematocrit 46.8 % (40-54); Lymphocyte # 1.55 X10^3/ul (0.83-4.51); Lymphocyte % 27.7 % (19-41); Mean Corp Hgb Conc 34.2 g/dL (32-36); Mean Corpuscular Hgb 31.1 pg (27.0-32.0); Mean Corpuscular Volume 90.9 fL (80-94); Mean Platelet Vol. 10.1 fl (6.2-12.0); Monocyte# 0.51 X10^3/uL; Monocyte% 9.1 % (0-10); Neutrophil # 3.24 X10^3/uL (2.7-7.7); Platelet Count 187 K/mm3 (150-450); RBC Distribution Width CV 13.1 % (11.6-14.6); RBC Distribution Width SD 43.3 fl (35.1-43.9); Red Blood Count 5.15 M/mm3 (4.6-6.2); White Blood Count 5.6 K/mm3 (4.4-11.0)
[2022-09-20 14:01] LABS: Basophil# 0.05 X10^3/uL; Eosinophil# 0.23 X10^3/uL; NRBC Flagged by Analyzer 0 % (0-5)
[2022-09-20 14:01] LABS: Color, Urine Yellow (Yellow); Glucose, Dipstick Normal (Normal); Ketone-Dipstick Negative (Negative); Leukocyte Esterase-Dipstick Negative /ul (Negative); Nitrite-Dipstick Negative (Negative); Occult Blood-Urine Negative /ul (Negative); Protein-Dipstick Negative (Negative); Specific Gravity, Urine 1.015 (1.002-1.030); Urine Bilirubin Dipstick Negative (Negative); Urine Clarity Clear (Clear); Urine Urobilinogen Normal (Normal)
[2022-09-20 14:16] LABS: ALB/GLOB Ratio 1.1 RATIO (0.9-2.4); AST(SGOT) 42 U/L (15-37); Alanine Aminotransfer ALT/SGPT 45 U/L (16-61); Albumin, Serum 3.6 g/dL (3.2-5.0); Alkaline Phosphatase 79 U/L (45-117); Anion Gap 6 (5-15); BUN 13 mg/dL (7-18); BUN/Creat Ratio 14.7 RATIO (10-20); Chloride 108 mmol/L (98-107); Creatinine, Serum 0.88 mg/dL (0.70-1.30); EST Glomerular Filtration Rate 89 mL/min (>60); Est Glom Filt Rate - Afr Amer 108 mL/min (>60); Estimated Creatinine Clearance 77.25 ml/min; Globulin 3.4 g/dL (2.2-4.2); Glucose 109 mg/dL (74-106); Potassium 4.2 mmol/L (3.5-5.1); Sodium Level 139 mmol/L (136-145)
[2022-09-20 15:06] VITALS: BP 157/89; PULSE 56; RESP 16; O2SAT 98
== END 2022-09-20 15:35 | disposition home or self-care (01) ==
PROVIDERS: Emergency Provider Emergency Medicine; PCP Family Medicine; Visit Provider Emergency Medicine
DX: R10.9 Unspecified abdominal pain (principal); I25.10 Atherosclerotic heart disease of native coronary artery without angina pectoris; I10 Essential (primary) hypertension; R35.0 Frequency of micturition; Z87.891 Personal history of nicotine dependence; Z79.02 Long term (current) use of antithrombotics/antiplatelets; Z95.5 Presence of coronary angioplasty implant and graft; Z79.82 Long term (current) use of aspirin; Z79.899 Other long term (current) drug therapy; E78.5 Hyperlipidemia, unspecified
CPT/HCPCS: 74176; 80053; 81001; 85025; 96360; 96361; 99283

== ENCOUNTER → 2022-11-13 | Outpatient (CLI) | payer MEDICARE, OTHER, SELFPAY ==
[2022-11-13 10:00] LABS: AST(SGOT) 40 U/L (15-37); Alanine Aminotransfer ALT/SGPT 41 U/L (16-61); Albumin, Serum 3.7 g/dL (3.2-5.0); Alkaline Phosphatase 83 U/L (45-117); Bilirubin, Direct 0.32 mg/dL (0.00-0.30); Cholesterol 122 mg/dL (200); Globulin 3.2 g/dL (2.2-4.2); High Density Lipoprotein 41 mg/dL; PSA,Total - Annual Screen 2.24 ng/mL (0.00-4.00); Protein, Total 6.9 g/dL (6.4-8.2); Triglycerides 46 mg/dL; Very Low Density Lipoprotein 9 mg/dL (5-40)
== END | disposition home or self-care (01) ==
LOC: LAB 08:11
PROVIDERS: Internal Medicine Cardiovascular Disease; PCP Family Medicine; Referring Provider Urology; Visit Provider Urology
DX: Z12.5 Encounter for screening for malignant neoplasm of prostate (principal); I25.10 Atherosclerotic heart disease of native coronary artery without angina pectoris; E78.00 Pure hypercholesterolemia, unspecified
CPT/HCPCS: 36415; 80061; 80076; 84153; G0103

== ENCOUNTER → 2023-05-12 | Outpatient (CLI) | payer MEDICARE, OTHER, SELFPAY ==
--- NOTE | 2023-05-12 14:59 | RAD_ITS ---
INDICATION: Injury EXAMINATION/TECHNIQUE: X-RAY - RIGHT XR Shoulder Min 2 Views 4 VIEWS COMPARISON: No relevant prior comparison study available FINDINGS: SOFT TISSUES: No soft tissue swelling or gas. No radiopaque foreign body. BONES/JOINTS: No acute fracture or subluxation.. Normal alignment. Preservation of the joint space.. No sclerotic or destructive changes observed. RAD/Shoulder min 2 Views IMPRESSION: No evidence of acute fracture or dislocation. Electronically Signed: Gildardo Unger MD at 15:14 EST ,
--- OUTSIDE RECORDS SUMMARY | 2023-05-12 16:18 | XMS RPT_ITS | CCD ---
Author Name Unknown Address [id number] [place] [address] Organization [facility] Care Team Providers Care Dairy Tester Name Role Phone Michel Tomas Unavailable Unavailable Ericka Santos Unavailable Phillip Mcclure Unavailable Unavailable MD Amara, Adam Brewer Unavailable EDY Patel, Rosanne Orr Unavailable Unavailabl e Gauri Haynes Unavailable Abel Dixon Unavailable Unavailable Gauri Haynes Primary Care Provider Juliana SNOW, Carmen Mejia Unavailable Michel Tomas Unavailable Unavailable Phillip Mcclure Unavailable Unavailable Tristen Livingston DO Unavailable Gauri Haynes Primary Care Provider [phone] Gauri Haynes DO Primary Care Provider ANTOINETTE HAQUE Attending Unavailable GAURI HAYNES Primary Care Unavailable GAURI HAYNES Primary Care Unavailable ANTOINETTE HAQUE Attending Unavailable Allergies Allergy Classification Reported Allergen(s) Allergy Type Date of Onset Reaction(s) Facility Niacin (3 sources) Niacin; Translations: [NIACIN] Drug Allergy 6 Itching [facility] (8 sources) niacin drug allergy 3 itching [facility] Work Phone: (3 sources) niacin Propensity to adverse reactions to drug 6 Itching [facility] Work Phone: (1 source) Niacin Drug Allergy 5 causes extreme itching and flushing [facility] [place] [facility] Work Phone: Medications Current Medications Medication Drug Class(es) Dates Sig (Normalized) Sig (Original) atorvastatin 80 mg oral tablet (20 sources) HMG-CoA Reductase Inhibitor Start: 10-18-2010 atorvastatin (LIPITOR) 80 MG tablet Take 80 mg by mouth. 0 11/15/2011 Active fish oil (1 source) take 1 capsule by mouth once daily fish oil-omega-3 fatty acids 300-1,000 mg capsule Take 2 g by mouth daily. Active fish oil-omega-3 fatty acids 300-1,000 mg capsule (4 sources) take 1 capsule by mouth once daily fish oil-omega-3 fatty acids 300-1,000 mg capsule Take 2 g by mouth daily. 0 Active metoprolol tartrate 50 mg oral tablet (20 sources) beta-Adrenergic Giovanni Start: 10-18-2010 metoprolol tartrate (LOPRESSOR) 50 MG tablet Take 50 mg by mouth. 0 11/15/2011 Active multivitamin capsule (5 sources) take 1 capsule by mouth once daily multivitamin capsule take 1 capsule by oral route every day 0 Active Completed/Discontinued Medications Medication Drug Class(es) Dates Sig (Normalized) Sig (Original) aspirin 81 mg delayed release oral tablet (20 sources) Nonsteroidal Anti-inflammatory Drug Start: 01-02-2012 take 1 tablet by mouth once daily ASPIRIN 81 MG TABS One tablet by mouth daily ASPIRIN [id number] Pasha Herrmann MD Problems Active Problems Problem Classification Problem Date Documented Da te Episodic/Chronic Coronary atherosclerosis and other heart disease (8 sources) Coronary arteriosclerosis; Translations: [Atherosclerotic heart disease of [place] coronary artery without angina pectoris] Onset: 10-18-2010 10-18-2010 Chronic Disorders of lipid metabolism (8 sources) Hyperlipidemia; Translations: [Hyperlipidemia, unspecified] Onset: 10-18-2010 10-18-2010 Chronic Essential hypertension (11 sources) Labile hypertension; Translations: [Hypertensive disorder] Onset: 10-14-2013 10-14-2013 Chronic Heart valve disorders (8 sources) Mitral valve prolapse; Translations: [Nonrheumatic mitral (valve) prolapse] Onset: 10-18-2010 10-18-2010 Chronic Spondylosis; intervertebral disc disorders; other back problems (2 sources) Herniation of nucleus pulposus; Translations: [Degeneration of cervical intervertebral disc] Onset: 03-25-2019 03-25-2019 Chronic Thyroid disorders (10 sources) Non-toxic multinodular goiter; Translations: [Nontoxic multinodular goiter] Onset: 09-02-2010 04-16-2016 Chronic Unclassified (1 source) Unknown / UNK(Unknown) Onset: 04-24-2018 Unclassified (3 sources) Long-term drug therapy; Translations: [Other lobsterman (current) drug therapy] Onset: 12-04-2010 12-04-2010 Past or Other Problems Problem Classification Problem Date Documented Da te Episodic/Chronic Coronary atherosclerosis and other heart disease (8 sources) Coronary angioplasty status; Translations: [Coronary angioplasty status] Onset: 10-18-2010 10-18-2010 Episodic Crushing injury or internal injury (8 sources) Injury to other specified blood vessels of lower extremity; Translations: [Injury to other specified blood vessels of lower extremity] Onset: 10-18-2010 10-18-2010 Episodic Nonspecific chest pain (16 sources) Chest pain, unspecified; Translations: [Precordial pain] Onset: 10-18-2010 10-18-2010 Episodic Other aftercare (5 sources) Other lobsterman (current) drug therapy; Translations: [Other lobsterman (current) drug therapy] Onset: 12-04-2010 12-04-2010 Episodic Residual codes; unclassified (3 sources) Family history of ischemic heart disease and other diseases of the circulatory system; Translations: [Family history of ischemic heart disease and other diseases of the circulatory system] 10-14-2013 Episodic Spondylosis; intervertebral disc disorders; other back problems (1 source) Spinal stenosis in cervical region; Translations: [Spinal stenosis, cervical region] Onset: 03-25-2019 03-25-2019 Episodic Unclassified (20 sources) Body Mass Index between 19-24, adult; Translations: [Family history of ischemic heart disease and other diseases of the circulatory system] Onset: 10-06-2014 Resolved: 04-17-2015 10-06-2014 Episodic Unclassified (1 source) GANGLION/GIANT CELL TUMOR RIGHT MIDDLE FINGER Onset: 04-24-2018 Unclassified (1 source) Problem Results Test Name Value Interpretation Reference Range Facil ity Vital Signs Date Time Vital Sign Value Performing Clinician Facility 08-23-2020 12:46-0400 Body height 180.3 cm Antoinette Haque MD Work Phone: [facility] 08-23-2020 12:46-0400 Body mass index (BMI) [Ratio] 25.24 kg/m2 Antoinette Haque MD Work Phone: [facility] 08-23-2020 12:46-0400 Body weight 82.1 kg Antoinette Haque MD Work Phone: [facility] 08-23-2020 12:46-0400 Diastolic blood pressure 92 mm[Hg] Antoinette Haque MD Work Phone: [facility] 08-23-2020 12:46-0400 Heart rate 61 /min Antoinette Haque MD Work Phone: [facility] 08-23-2020 12:46-0400 Systolic blood pressure 163 mm[Hg] Antoinette Hauqe MD Work Phone: [facility] 08-24-2018 13:01-0400 BMI (Body Mass Index) 24.83 kg/m2 Jacqui Olivas [facility] 08-24-2018 13:01-0400 BP Diastolic 96 mm[Hg] Jacqui Olivas [facility] 08-24-2018 13:01-0400 BP Systolic 155 mm[Hg] Jacqui Olivas [facility] 08-24-2018 13:01-0400 Height 180.3 cm Jacqui Olivas [facility] 08-24-2018 13:01-0400 Pulse (Heart Rate) 56 /min Jacqui Olivas [facility] 08-24-2018 13:01-0400 Weight 80.74 kg Jacqui Olivas [facility] 04-16-2017 10:30-0500 BMI (Body Mass Index) 23.85 kg/m2 Antoinette Haque [facility] Work Phone: 04-16-2017 10:30-0500 BP Diastolic 88 mm[Hg] Antoinette Haque [facility] Work Phone: 04-16-2017 10:30-0500 BP Systolic 118 mm[Hg] Antoinette Haque [facility] Work Phone: 04-16-2017 10:30-0500 Pulse (Heart Rate) 64 /min Antoinette Haque [facility] Work Phone: 04-16-2017 10:30-0500 Weight 77.56 kg Antoinette Haque [facility] Work Phone: 11-08-2016 09:16-0400 BMI (Body Mass Index) 25.14 kg/m2 [facility] Work Phone: 11-08-2016 09:16-0400 BP Diastolic 78 mm[Hg] [facility] Work Phone: 11-08-2016 09:16-0400 BP Systolic 122 mm[Hg] [facility] Work Phone: 11-08-2016 09:16-0400 Height 182.88 cm [facility] Work Phone: 11-08-2016 09:16-0400 Pulse (Heart Rate) 52 /min [facility] Work Phone: 11-08-2016 09:16-0400 Respiratory Rate 20 /min [facility] Work Phone: 11-08-2016 09:16-0400 Weight 84.1 kg [facility] Work Phone: 10-24-2015 15:09-0400 BMI (Body Mass Index) 22.92 kg/m2 [facility] Work Phone: 10-24-2015 15:09-0400 BP Diastolic 70 mm[Hg] [facility] Work Phone: 10-24-2015 15:09-0400 BP Systolic 100 mm[Hg] [facility] Work Phone: 10-24-2015 15:09-0400 BSA (Body Surface Area) 1.98 m2 [facility] Work Phone: 10-24-2015 15:09-0400 Pulse (Heart Rate) 68 /min [facility] Work Phone: 10-24-2015 15:09-0400 Respiratory Rate 20 /min [facility] Work Phone: 10-24-2015 15:09-[address] [facility] Work Phone: 04-21-2015 13:52-0500 Heart rate 56 /min Carmen Andrews RN [facility] Work Phone: 10-14-2013 15:14-[address] [facility] Work Phone: 01-02-2012 16:35-0400 Heart rate 423 ms Carmen Andrews RN [facility] Work Phone: 06-13-2011 16:20-0500 BP Diastolic 70 mm[Hg] [facility] Work Phone: 06-13-2011 16:20-0500 BP Systolic 110 mm[Hg] [facility] Work Phone: NEGATED: Highlighted [id number] 13:04-0500 BMI (Body Mass Index) 25.06 kg/m2 Roxanne Gilliam AT [facility] Work Phone: NEGATED: Highlighted [id number] 13:04-0500 Body weight 81.19 kg Roxanne Gilliam AT [facility] Work Phone: NEGATED: Highlighted [id number] 13:04-0500 Body weight 81 kg Roxanne Gilliam AT [facility] Work Phone: NEGATED: Highlighted [id number] 13:04-0500 BP Diastolic 92 mm[Hg] Roxanne Gilliam AT [facility] Work Phone: NEGATED: Highlighted [id number] 13:04-0500 BP Diastolic 82 mm[Hg] Roxanne Gilliam AT [facility] Work Phone: NEGATED: Highlighted [id number] 13:04-0500 BP Systolic 156 mm[Hg] Roxanne Gilliam AT [facility] Work Phone: NEGATED: Highlighted [id number] 13:04-0500 BP Systolic 137 mm[Hg] Roxanne Gilliam AT [facility] Work Phone: NEGATED: Highlighted [id number] 13:04-0500 Height 180.34 cm Roxanne Gilliam AT [facility] Work Phone: NEGATED: Highlighted [id number] 13:04-0500 Height 180 cm Roxanne Gilliam AT [facility] Work Phone: NEGATED: Highlighted [id number] 13:04-0500 Pulse (Heart Rate) 71 /min Roxanne Gilliam AT [facility] Work Phone: Encounters Encounter Date Encounter Type Care Provider Facility Start: 08-23-2020 End: 08-23-2020 ambulatory ANTOINETTE HAQUE [facility] Start: 08-23-2020 End: 08-23-2020 Office outpatient visit 15 minutes Antoinette Haque MD Work Phone: [facility] Procedures Date Procedure Procedure Detail Performing Clinician Start: 03-25-2019 End: 03-25-2019 CERVICAL COLLAR SERPENTINE (BREG) Tristen Livingston DO Work Phone: Start: 04-21-2017 End: 04-29-2017 *Hepatic Function Panel Dominga Mcconnell Start: 04-21-2017 End: 04-29-2017 Lipid panel [AGGREGATE] Dominga Mcconnell Start: 11-08-2016 End: 11-08-2016 TRIPE SCRAPER Stephen Grant EMANATIONS ANALYSIS TECHNICIAN Work Phone: Start: 11-08-2016 End: 11-08-2016 Follow Up Appt 6 months Stephen Grant EMANATIONS ANALYSIS TECHNICIAN Work Phone: Start: 10-11-2016 End: 10-18-2016 *Hepatic Function Panel Carmen singleton PA-C Work Phone: Start: 10-11-2016 End: 10-18-2016 Lipid panel [AGGREGATE] Carmen singleton PA-C Work Phone: Start: 04-12-2016 End: 04-12-2016 *Hepatic Function Panel Carmen singleton PA-C Work Phone: Start: 04-12-2016 End: 04-12-2016 Lipid panel [AGGREGATE] Carmen singleton PA-C Work Phone: Start: 10-24-2015 End: 10-24-2015 Follow Up Appt 1 year Adam Maloney MD Start: 10-24-2015 End: 10-24-2015 MM Adam Maloney MD Start: 10-17-2015 End: 10-23-2015 *Hepatic Function Panel Carmen singleton PA-C Work Phone: Start: 10-17-2015 End: 10-23-2015 Lipid panel [AGGREGATE] Carmen singleton PA-C Work Phone: Start: 04-21-2015 End: 04-21-2015 Electrocardiogram, complete Adam Maloney MD Start: 04-21-2015 End: 04-21-2015 Follow Up Appt 6 months Dominga Mcconnell Start: 04-21-2015 End: 04-21-2015 VERO Maloney MD Start: 04-04-2015 End: 04-17-2015 *Hepatic Function Panel Carmen singleton PA-C Work Phone: Start: 04-04-2015 End: 04-17-2015 Lipid panel [AGGREGATE] Carmen singleton PA-C Work Phone: Start: 10-06-2014 End: 10-06-2014 TRIPE SCRAPER Carmen Garcia PA-C Work Phone: Start: 10-06-2014 End: 10-07-2014 Documentation of current medications Carmen Garcia PA-C Work Phone: Start: 10-06-2014 End: 10-06-2014 Follow Up Appt 6 months Carmen singleton PA-C Work Phone: Start: 09-26-2014 End: 10-03-2014 *Hepatic Function Panel Dominga Mcconnell Start: 09-26-2014 End: 10-03-2014 Lipid panel [AGGREGATE] Dominga Mcconnell Start: 04-05-2014 End: 04-05-2014 Follow Up Appt 6 months Dominga Mcconnell Start: 04-05-2014 End: 04-05-2014 VERO Maloney MD Start: 12-03-2013 End: 03-28-2014 *Hepatic Function Panel Dominga Mcconnell Start: 12-03-2013 End: 03-28-2014 Lipid panel [AGGREGATE] Dominga Mcconnell Start: 10-14-2013 End: 10-14-2013 CLEMENTE Maloney MD Start: 10-14-2013 End: 10-14-2013 Follow Up Appt 6 months Dominga Mcconnell Start: 10-14-2013 End: 10-14-2013 MMM Adam Maloney MD Start: 09-02-2013 End: 09-02-2013 Follow Up Appt Other Carmen mejia PA-C Work Phone: Start: 09-02-2013 End: 09-28-2015 Nuclear stress test -exercise Carmen Garcia PA-C Work Phone: Start: 06-24-2013 End: 06-24-2013 TRIPE SCRAPER Carmen Garcia PA-C Work Phone: Start: 06-24-2013 End: 06-24-2013 Follow Up Appt 6 months Carmen singleton PA-C Work Phone: Start: 06-24-2013 End: 06-24-2013 Follow Up Appt Other Carmen mejia PA-C Work Phone: Start: 06-05-2013 End: 06-28-2013 *BMP Adam Maloney MD Start: 06-05-2013 End: 06-29-2013 *Hepatic Function Panel Dominga Mcconnell Start: 06-05-2013 End: 06-29-2013 Lipid panel [AGGREGATE] Dominga Mcconnell Start: 03-23-2013 End: 03-23-2013 *BMP Adam Maloney MD Start: 03-23-2013 End: 03-23-2013 CBC W Auto Differential panel - Blood Adam Maloney MD Start: 03-23-2013 End: 09-02-2013 Chest x-ray Adam Maloney MD Start: 03-23-2013 End: 03-23-2013 Coagulation factor induced.INR assay in platelet poor plasma Adam Maloney MD Start: 03-23-2013 End: 03-23-2013 Electrocardiogram, complete Adam Maloney MD Start: 03-23-2013 End: 06-16-2013 Left Heart Cath Adam Maloney MD Start: 12-22-2012 End: 12-22-2012 Follow Up Appt 6 months Dominga Mcconnell Start: 12-22-2012 End: 12-22-2012 MMM Adam Maloney MD Start: 12-03-2012 End: 12-28-2012 *Hepatic Function Panel Pasha Herrmann MD Start: 12-03-2012 End: 12-28-2012 Lipid panel [AGGREGATE] Pasha Herrmann MD Start: 06-05-2012 End: 06-17-2012 *Hepatic Function Panel Pasha Herrmann MD Start: 06-05-2012 End: 06-17-2012 Lipid panel [AGGREGATE] Pasha Herrmann MD Start: 01-02-2012 End: 01-03-2012 Follow Up Appt 1 year Pasha Herrmann MD Start: 01-02-2012 End: 01-02-2012 Lipid panel [AGGREGATE] Pasha Herrmann MD Start: 12-04-2011 End: 12-23-2011 *Hepatic Function Panel Pasha Herrmann MD Start: 12-04-2011 End: 12-23-2011 Lipid panel [AGGREGATE] Pasha Herrmann MD Start: 06-13-2011 End: 06-13-2011 Follow Up Appt 6 months Pasha Herrmann MD NEGATED: Highlighted rowStart: 03-25-2019 End: 03-25-2019 Documentation of current medications Roxanne Gilliam AT Plan of Treatment Date Care Activity Detail Author Start: 11-07-2029 Tetanus vaccination Tetanus: Every 10yrs [facility] Start: 01-10-2025 Tetanus vaccination Tetanus: Every 10yrs [facility] Start: 08-23-2020 End: 08-23-2020 Office Visit [facility] Start: 01-04-2020 Influenza vaccination given Sequential Influenza Vaccine (#1) [facility] Start: 04-16-2019 Ambulatory 04/16/2019 Office Visit Endocrinology Antoinette Haque MD [facility] Salvatore [address] [place] [id number] [facility] Start: 03-25-2019 End: 03-25-2019 Radex spine cervical 4 or 5 views XR CERVICAL 4VWS FLEX/EXT [facility] Work Phone: Start: 01-03-2018 Influenza vaccination given SEQUENTIAL INFLUENZA VACCINE (#1) [facility] Start: 05-07-2017 End: 05-07-2017 Appointment Appointment [facility] Work Phone: Start: 04-21-2017 End: 04-29-2017 *Hepatic Function Panel *Hepatic Function Panel [facility] Work Phone: Start: 04-21-2017 End: 04-29-2017 Lipid panel [AGGREGATE] *Lipid Profile CC PCP [facility] Work Phone: Start: 01-03-2017 Influenza vaccination SEQUENTIAL INFLUENZA VACCINE (#1) [facility] Work Phone: Start: 11-08-2016 End: 11-08-2016 Appointment Appointment [facility] Work Phone: Start: 11-08-2016 End: 11-08-2016 TRIPE SCRAPER TRIPE SCRAPER [facility] Work Phone: Start: 11-08-2016 End: 11-08-2016 Follow Up Appt 6 months Follow Up Appt 6 months [facility] Work Phone: Start: 10-29-2016 End: 10-29-2016 Appointment Appointment [facility] Work Phone: Start: 10-29-2016 End: 10-29-2016 Appointment Appointment [facility] Work Phone: Start: 10-11-2016 End: 10-18-2016 *Hepatic Function Panel *Hepatic Function Panel [facility] Work Phone: Start: 10-11-2016 End: 10-18-2016 Lipid panel [AGGREGATE] *Lipid Profile CC PCP [facility] Work Phone: Start: 04-24-2016 End: 04-12-2016 *Hepatic Function Panel *Hepatic Function Panel [facility] Work Phone: Start: 04-24-2016 End: 04-12-2016 Lipid panel [AGGREGATE] *Lipid Profile CC PCP [facility] Work Phone: Start: 10-24-2015 End: 10-24-2015 Follow Up Appt 1 year Follow Up Appt 1 year [facility] Work Phone: Start: 10-24-2015 End: 10-24-2015 MMM MMM [facility] Work Phone: Start: 10-17-2015 End: 10-23-2015 *Hepatic Function Panel *Hepatic Function Panel [facility] Work Phone: Start: 10-17-2015 End: 10-23-2015 Lipid panel [AGGREGATE] *Lipid Profile CC PCP [facility] Work Phone: Start: 04-21-2015 End: 04-21-2015 Electrocardiogram, complete EKG (In office) [facility] Work Phone: Start: 04-21-2015 End: 04-21-2015 Follow Up Appt 6 months Follow Up Appt 6 months [facility] Work Phone: Start: 04-21-2015 End: 04-21-2015 [facility] Work Phone: Start: 04-04-2015 End: 04-17-2015 *Hepatic Function Panel *Hepatic Function Panel [facility] Work Phone: Start: 04-04-2015 End: 04-17-2015 Lipid panel [AGGREGATE] *Lipid Profile CC PCP [facility] Work Phone: Start: 10-06-2014 End: 10-06-2014 [facility] Work Phone: Start: 10-06-2014 End: 10-06-2014 Follow Up Appt 6 months Follow Up Appt 6 months [facility] Work Phone: Start: 09-26-2014 End: 10-03-2014 *Hepatic Function Panel *Hepatic Function Panel [facility] Work Phone: Start: 09-26-2014 End: 10-03-2014 Lipid panel [AGGREGATE] *Lipid Profile CC [facility] Work Phone: Start: 04-05-2014 End: 04-05-2014 Follow Up Appt 6 months Follow Up Appt 6 months [facility] Work Phone: Start: 04-05-2014 End: 04-05-2014 [facility] Work Phone: Start: 12-03-2013 End: 03-28-2014 *Hepatic Function Panel *Hepatic Function Panel [facility] Work Phone: Start: 12-03-2013 End: 03-28-2014 Lipid panel [AGGREGATE] *Lipid Profile CC [facility] Work Phone: Start: 10-14-2013 End: 10-14-2013 TRIPE SCRAPER TRIPE SCRAPER [facility] Work Phone: Start: 10-14-2013 End: 10-14-2013 Follow Up Appt 6 months Follow Up Appt 6 months [facility] Work Phone: Start: 10-14-2013 End: 10-14-2013 MMM MMM [facility] Work Phone: Start: 09-02-2013 End: 09-02-2013 Follow Up Appt Other Follow Up Appt Other [facility] Work Phone: Start: 09-02-2013 End: 09-02-2013 Nuclear stress test -exercise Nuclear stress test -exercise [facility] Work Phone: Start: 06-24-2013 End: 06-24-2013 [facility] Work Phone: Start: 06-24-2013 End: 06-24-2013 Follow Up Appt 6 months Follow Up Appt 6 months [facility] Work Phone: Start: 06-24-2013 End: 06-24-2013 Follow Up Appt Other Follow Up Appt Other [facility] Work Phone: Start: 06-05-2013 End: 06-28-2013 *BMP *BMP [facility] Work Phone: Start: 06-05-2013 End: 06-29-2013 *Hepatic Function Panel *Hepatic Function Panel [facility] Work Phone: Start: 06-05-2013 End: 06-29-2013 Lipid panel [AGGREGATE] *Lipid Profile CC PCP [facility] Work Phone: Start: 03-23-2013 End: 03-23-2013 *BMP *BMP [facility] Work Phone: Start: 03-23-2013 End: 03-23-2013 CBC W Auto Differential panel - Blood *CBC without Diff [facility] Work Phone: Start: 03-23-2013 End: 09-02-2013 Chest x-ray X-Ray, Chest, PA & Lateral [facility] Work Phone: Start: 03-23-2013 End: 03-23-2013 Coagulation factor induced.INR assay in platelet poor plasma *PT/INR [facility] Work Phone: Start: 03-23-2013 End: 03-23-2013 Electrocardiogram, complete EKG (In office) [facility] Work Phone: Start: 03-23-2013 End: 03-23-2013 Left Heart Cath Left Heart Cath [facility] Work Phone: Start: 03-15-2013 Administration of herpes zoster vaccine Zoster Vaccines (2 of 3) [facility] Start: 12-22-2012 End: 12-22-2012 Follow Up Appt 6 months Follow Up Appt 6 months [facility] Work Phone: Start: 12-22-2012 End: 12-22-2012 MMM MMM [facility] Work Phone: Start: 12-03-2012 End: 12-28-2012 *Hepatic Function Panel *Hepatic Function Panel [facility] Work Phone: Start: 12-03-2012 End: 12-28-2012 Lipid panel [AGGREGATE] *Lipid Profile [facility] Work Phone: Start: 06-05-2012 End: 04-01-2012 *Hepatic Function Panel *Hepatic Function Panel [facility] [facility] Work Phone: Start: 06-05-2012 End: 06-17-2012 Lipid panel [AGGREGATE] *Lipid Profile [facility] Work Phone: Start: 2012 Fall risk assessment Falls Risk Assessment [facility] Start: 2012 Pneumococcal vaccination PNEUMOCOCCAL VACCINE AGE 65+ (1 of 2 - PCV13) [facility] Work Phone: Start: 2012 Ultrasound scan of abdominal aorta ABDOMINAL AORTIC ULTRASOUND [facility] Work Phone: Start: 01-02-2012 End: 01-02-2012 Electrocardiogram, complete EKG (In office) [facility] Work Phone: Start: 01-02-2012 End: 01-03-2012 Follow Up Appt 1 year Follow Up Appt 1 year [facility] Work Phone: Start: 12-04-2011 End: 12-23-2011 *Hepatic Function Panel *Hepatic Function Panel [facility] Work Phone: Start: 12-04-2011 End: 12-23-2011 Lipid panel [AGGREGATE] *Lipid Profile [facility] Work Phone: Start: 06-13-2011 End: 06-13-2011 Follow Up Appt 6 months Follow Up Appt 6 months [facility] Work Phone: Start: 2007 Zoster vacc, sc ZOSTER VACCINE [facility] Work Phone: Start: 1997 Administration of herpes zoster vaccine Zoster Vaccines (1 of 2) [facility] Start: 1997 Screening for malignant neoplasm of colon [facility] Start: 1965 Hepatitis C antibody, confirmatory test Hepatitis C Screening [facility] Start: 1965 Hepatitis C screening Hepatitis C Screening [facility] Start: 1963 COVID-19 Vaccine (1 of 2) COVID-19 Vaccine (1 of 2) [facility] Start: 1959 Adolescent depression screening assessment Depression Screening (PHQ9) [facility] Start: 1959 Depression screening using PHQ-9 (Patient Health Questionnaire 9) score Depression Screening (PHQ9) [facility] Start: 1950 History and physical examination, annual for health maintenance Wellness Visit [facility] Start: 1947 Fall risk assessment Falls Risk Assessment [facility] Start: 1947 Hepatitis C antibody, confirmatory test HEPATITIS C SCREENING [facility] Start: 1947 HEPATITIS C SCREENING HEPATITIS C SCREENING [facility] Work Phone: Start: 1947 Prostate specific antigen measurement PSA Level [facility] Start: 1947 Screening colonoscopy COLONOSCOPY [facility] Work Phone: Start: 1947 Screening for malignant neoplasm of colon Colorectal Cancer Screening: Colonoscopy [facility] Start: 1947 Tetanus vaccination TETANUS EVERY 10 YR [facility] Work Phone: Start: 1947 US scan of abdominal aorta Abdominal Aortic Ultrasound [facility] Patient Education [facility] Work Phone: End: 08-25-2019 T4 free mass conc T4, Free Routine Multinodular goiter (nontoxic) 1 Occurrences starting 08/24/2018 until 08/25/2019 [facility] Payers Date Payer Category Payer Unknown [id number] 2015 Unknown AARP [employer] xxxxxxxxxxx 2015-Present xxxxxxxxxxx [id number] 2015 [facility] [id number] 2015-Present [id number] 2012 Medicare [id number] 2012 Medicare MEDICARE MEDICAR E PART A & B xxxxxxxxxx 2012-Present [place] xxxxxxxxxx [id number] 2012 Medicare MEDICARE MEDICAR E PART A & B [id number] 2012-Present [place] [id number] 1947 Unknown [id number] 1947 Unknown [id number] Medicare [id number] Unknown [id number] Social History Date Type Detail Facility Start: 04-16-2017 End: 08-24-2018 Tobacco smoking status AKIS Former smoker [facility] Work Phone: End: 05-04-1980 History of tobacco use Current smoker [facility] Work Phone: Sex Assigned At Not on file [facility] Work Phone: Start: 03-29-2019 End: 03-29-2019 Assertion Unknown if ever smoked [facility] Work Phone: Start: 08-24-2018 End: 08-23-2020 Tobacco use and exposure Never used [facility] Start: 08-24-2018 End: 08-23-2020 Alcohol intake Current non-drinker of alcohol (finding) [facility] Exposure to SARS-CoV-2 (event) Not sure [facility] NEGATED: Highlighted rowStart: 03-25-2019 End: 03-25-2019 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 [facility] Work Phone: History of Present illness Narrative 08-23-2020 Antoinette Haque MD - 08/23/2020 12:58 PM EDT Note Date & Type Note Facility 08-23-2020 History of Presen t illness Narrative Patient ID: Lynn Coronado is a 75 y.o. male Subjective: Lynn Coronado is a 75 y.o. male who returns to our office for follow up of: multinodular goiter. Patient status post FNA biopsy of bilateral nodules 11/15/11 at [facility]. Mr. Coronado is a 75-year-old male patient has a history of multinodular goiter which was biopsied back in November 2011, found to be benign. He was last seen here in August, and is here for 2-year follow-up. He had an ultrasound done at [facility] on 08/16/2020 along with TFTs. Results are noted below. He has been feeling well generally, other than having some posterior neck discomfort which is due to cervical spine disease. He has received epidural injections for pain, but continues to experience symptoms. He previously was very active biking on the bike trail, but was not as active last year due to knee discomfort. Thyroid Problem Presents for follow-up visit. Patient reports no cold intolerance, constipation, depressed mood, diarrhea, dry skin, fatigue, hair loss, heat intolerance, hoarse voice, leg swelling, nail problem, palpitations, tremors, visual change, weight gain or weight loss. The symptoms have been stable. Past treatments include nothing. Prior procedures include thyroid FNA ( 11/15/11) and thyroid ultrasound. There is no history of atrial fibrillation, dementia, diabetes, Graves' ophthalmopathy, heart failure, hyperlipidemia, neuropathy, obesity or osteopenia. Review of Systems: Review of Systems Constitutional: Negative for appetite change, fatigue, unexpected weight change, weight gain and weight loss. HENT: Negative for hoarse voice and trouble swallowing (denies trouble swallowing). Eyes: Negative for visual disturbance. Respiratory: Negative for shortness of breath. Cardiovascular: Negative for chest pain and palpitations. Gastrointestinal: Negative for abdominal pain, constipation, diarrhea, nausea and vomiting. Endocrine: Negative for cold intolerance and heat intolerance. Musculoskeletal: Positive for arthralgias, back pain, myalgias and neck pain. Musculoskeletal discomfort in posterior neck Neurological: Negative for tremors. Medications: Current Outpatient Medications Medication Sig Dispense Refill aspirin (ECOTRIN LOW STRENGTH) 81 MG EC tablet 81 mg. atorvastatin (LIPITOR) 80 MG tablet Take 80 mg by mouth. cholecalciferol, vitamin D3, 400 unit Tab Take by mouth daily . clopidogrel (PLAVIX) 75 mg tablet Take 75 mg by mouth. coenzyme Q10 (CO Q-10) 100 mg capsule 100 mg. fish oil-omega-3 fatty acids 300-1,000 mg capsule Take 2 g by mouth daily. lisinopriL (PRINIVIL,ZESTRIL) 10 MG tablet Take 10 mg by mouth daily . metoprolol tartrate (LOPRESSOR) 50 MG tablet Take 50 mg by mouth. multivitamin capsule take 1 capsule by oral route every day No current facility-administered medications for this visit. The following portions of the patient's history were reviewed and updated as appropriate: allergies, current medications, past family history, past medical history, past social history, past surgical history and problem list. Objective: Physical Exam: BP (!) 163/92 Pulse 61 Ht 5' 11 Wt 82.1 kg (181 lb) BMI 25.24 kg/m Wt Readings from Last 3 Encounters: 08/23/20 82.1 kg (181 lb) 08/24/18 80.7 kg (178 lb) 04/16/17 77.6 kg (171 lb) Physical Exam Constitutional: He is oriented to person, place, and time. He appears well-developed and well-nourished. HENT: Head: Normocephalic and atraumatic. Eyes: Conjunctivae are normal. No scleral icterus. Left eye disconjugate Neck: Normal range of motion. Neck supple. No thyromegaly present. Cardiovascular: Normal rate and regular rhythm. Pulmonary/Chest: Effort normal and breath sounds normal. No respiratory distress. Musculoskeletal: Normal range of motion. Lymphadenopathy: He has no cervical adenopathy. Neurological: He is alert and oriented to person, place, and time. Skin: Skin is warm and dry. Psychiatric: He has a normal mood and affect. His behavior is normal. Judgment and thought content normal. Lab Review: 08/16/2020 TSH 1.30, FT4--1.01 04/09/17 TSH 1.29, FT4--1.13 11/15/11: (FNA biopsies done at [facility], likely by Dr. Ratliff) A. THYROID RIGHT, FINE NEEDLE ASPIRATE Benign. Consistent with colloid nodule. B. THYROID LEFT, FINE NEEDLE ASPIRATE Benign. Consistent with colloid nodule. Radiology Review: 03/29/16 Thyroid ultrasound: Right lobe: 5.5 x 1.8 x 1.4 cm. There is a homogeneous echotexture. Multiple right thyroid nodules. Largest nodule is seen in the mid right thyroid gland measuring 13x11 mm. The lesion is solid with regular margins and marcus-nodular doppler flow. Left lobe: 5.4 x 1.8 x 1.2 cm. There is a homogeneous echotexture. Multiple left thyroid nodules. Largest nodule is seen in the inferior left thyroid lobe measuring 14x10 mm. The lesion is solid with regular margins and intra-nodular doppler flow. 04/09/17 thyroid ultrasound performed at [facility] Comparison: 03/29/16 Right lobe: 1.5 x 2.3 x 1.2 cm. Homogenous echotexture. 1.3 x 1.1 x 0.8 cm isoechoic nodule with mildly hypoechoic rim in the mid to lower thyroid. There is marcus-nodular vascularity Left lobe 5.4 x 1.9 x 1.3 cm. Homogenous echotexture. There are 3 nodules. 1.3 x 1.1 x 1.1 cm solid and cystic nodule in the mid to lower lobe. This has become predominantly cystic when compared to the prior study. There is a 5 mm hypoechoic nodule in the posterior lower lobe which may represent a thyroid nodule or parathyroid gland. This was not previously described. There is also a 5 x 5 x 3 mm hypoechoic nodule along the anterior aspect of the thyroid gland; unchanged from prior study.. Nodular vascularity is seen. Isthmus measures 0.3 cm. Regional lymph nodes are normal. Impression: Stable findings of right thyroid. Increasing cystic component within the largest nodule in the left lobe. Findings are otherwise unchanged 08/11/18 Thyroid ultrasound Findings: Right lobe: The right lobe of the thyroid gland measures 5.1 x 1.7 x 1.1 cm. There is homogeneous echotexture. There are 2 complex nodules, one in the upper pole measuring 1.2 x 1.0 x 0.7 cm and a second 1 in the lower pole measuring 6 x 4 x 4 mm Left lobe: The left lobe of the thyroid gland measures 5.2 x 1.5 x 1.5 cm. There is a homogeneous echotexture. At least 2 complex midpole nodules, largest one measuring 1.4 x 1.1 x 1.2 cm. Isthmus: The isthmus measures 2 mm. The regional lymph nodes are normal Impression: Slightly enlarged thyroid with several small complex nodules. 08/15/2020 Thyroid ultrasound Comparison: 08/11/2018 Right lobe: Measures 5.0 x 2.2 x 1.26 cm. Homogenous echotexture. Lower pole 1.1 x 1.1 x 0.6 cm mildly hyperechoic mass with a vaguely hypoechoic rim; wider than tall; no calcifications; peripheral vascularity; appears unchanged from prior exam. Midpole 4 x 4 x 2 mm anechoic structure with small central isoechoic focus, slightly decreased in size from prior study. Left lobe: Measures 5.0 x 1.7 x 1.2 cm. Homogenous echotexture. Mid to lower lobe 1.3 x 1.1 x 1.0 cm isoechoic nodule with focal areas of anechogenicity centrally; wider than tall; no evidence of calcifications; peripheral vascularity; essentially unchanged in size from previous examination. Lower pole 3 x 3 x 2 mm hypoechoic focus; decreased in size from prior study where it appeared cystic. 5 x 4 x 3 mm hypoechoic focus along the posterior aspect of the lower pole which may represent a thyroid nodule or parathyroid gland. Not visualized on previous examination (note: This was visualized on the 04/20 study) Isthmus: Measures 0.2 cm Regional lymph nodes are normal Impression: Bilateral thyroid nodules essentially unchanged in size and appearance of the study 2 years earlier. This would suggest benignity. None are thought to require follow-up by T RADS criteria secondary to their small size. Assessment: Dx: No diagnosis found. Lynn Coronado is a 75 y.o. male returns for follow up of multinodular goiter. His thyroid function tests are euthyroid. His ultrasound on 08/16/2020 reflux stable nodule size and appearance compared with 08/11/2018 study. Further review of his 04/09/2017 and 03/29/2016 ultrasound showed continued stability of his multinodular goiter. He is status post FNA biopsies on 11/15/2011 of both the right and left thyroid nodules which were consistent with benign colloid nodules. Because his ultrasound findings have been stable for 5 years, he does not require further follow-up by ultrasound at this time. I have advised him that his primary care physician can follow his thyroid function tests every 1-2 years, and if he were to develop abnormal thyroid function test he could be referred back at any time. Also, if he were to develop any discomfort in his neck or dysphagia, a repeat thyroid ultrasound could be performed at that time. Plan: 1. Follow-up with primary care physician. 2. Recommend recheck thyroid function test every 1-2 years. 3. Repeat ultrasound if he develops any symptoms of neck discomfort or dysphagia. 4. Patient can return anytime to this office for further evaluation if he has a change in his thyroid function tests or symptoms. No orders of the defined types were placed in this encounter. Electronically signed by Antoinette Haque MD 08/23/20 3:03 PM documented in this encounter [facility] Evaluation note Note Date & Type Note Facility documented in this encounter [facility] Evaluation note Note Date & Type Note Facility documented in this encounter [facility] Assessments Diagnosis Multinodular goiter (nontoxi c) - Primary Nontoxic multinodular goiter Diagnosis Multinodular goiter (nontoxic)- Primary Nontoxic multinodular goiter Summary Purpose Family History No Family History Records FoundThere may be information available, but it has not been provided by the sender.No Family History Records Found Advance Directives Documents on File Type Date Recorded Patient Hand Cooper Helper Expl anation Advance Directives and Living Will Documents on File Type Date Recorded Patient Hand Cooper Helper Expl anation Advance Directives and Livin g Will 08/23/2020 12:38 PM History of Present Illness * Jacqui Olivas, MARIPOSA - 08/24/2018 1:16 PM EDT Patient ID: Lynn Coronado is a 73 y.o. male Subjective: Lynn Coronado is a 73 y.o. male who returns to our office for follow up of: multinodular goiter. Patient status post FNA biopsy of bilateral nodules 11/15/11 at [facility]. Mr. Coronado is a 73-year-old male patient here for complaints of something in my throat . Patient states he has been noticing that when he swallows he feels like there is something in his throat. He also states that when lying flat he feels short of breath. Patient has a history of multinodular goiter which was biopsied back in November 2011, found to be benign. His last ultrasound was in April 2017. He was due for an updated appointment with us in April 2019 with TFTs and ultrasound. He had an ultrasound done on 08/11/2018 because of his complaints. Was relatively unchanged from his previous ultrasound. Thyroid Problem Presents for follow-up visit. The condition has lasted for 11 years. Patient reports no anxiety, cold intolerance, constipation, depressed mood, diarrhea, dry skin, fatigue, hair loss, heat intolerance, hoarse voice, leg swelling, nail problem, palpitations, tremors, visual change, weight gain or weight loss. The symptoms have been stable. Past treatments include nothing. Prior procedures includethyroid FNA ( 11/15/11) and thyroid ultrasound. There is no history of atrial fibrillation, dementia, diabetes, Graves' ophthalmopathy, heart failure, hyperlipidemia, neuropathy, obesity or osteopenia. Review of Systems: Review of Systems Constitutional: Negative for activity change, appetite change, fatigue, unexpected weight change, weight gain and weight loss. HENT: Negative for hoarse voice and trouble swallowing (denies trouble swallowing). Feels SOB when laying flat Eyes: Negative for visual disturbance. Respiratory: Negative for shortness of breath. Cardiovascular: Negative for chest pain and palpitations. Gastrointestinal: Negative for abdominal pain, constipation and diarrhea. Endocrine: Negative for cold intolerance and heat intolerance. Musculoskeletal: Positive for back pain and neck pain. Reports feeling something in his throat. Sometimes when swallowing. Neurological: Negative for tremors. Psychiatric/Behavioral: The patient is not nervous/anxious. Medications: Current Outpatient Medications Medication Sig Dispense Refill aspirin (ECOTRIN LOW STRENGTH) 81 MG EC tablet 81 mg. atorvastatin (LIPITOR) 80 MG tablet Take 80 mg by mouth. clopidogrel (PLAVIX) 75 mg tablet Take 75 mg by mouth. coenzyme Q10 (CO Q-10) 100 mg capsule 100 mg. fish oil-omega-3 fatty acids 300-1,000 mg capsule Take 2 g by mouth daily. lisinopril (PRINIVIL,ZESTRIL) 5 MG tablet Take 5 mg by mouth. metoprolol tartrate (LOPRESSOR) 50 MG tablet Take 50 mg by mouth. multivitamin capsule take 1 capsule by oral route every day verapamil (CALAN) 120 MG tablet Take 120 mg by mouth daily. 6 No current facility-administered medications for this visit. The following portions of the patient's history were reviewed and updated as appropriate: allergies, current medications, past family history, past medical history, past social history, past surgicalhistory and problem list. Objective: Physical Exam: BP (!) 155/96 Pulse (!) 56 Ht 5' 11 Wt 80.7 kg (178 lb) BMI 24.83 kg/m Wt Readings from Last 3 Encounters: 08/24/18 80.7 kg (178 lb) 04/16/17 77.6 kg (171 lb) 04/16/16 77.1 kg (170 lb) Physical Exam Constitutional: He is oriented to person, place, and time. He appears well- developed and well-nourished. HENT: Head: Normocephalic and atraumatic. Eyes: Pupils are equal, round, and reactive to light. Conjunctivae are normal. Neck: Normal range of motion. Neck supple. No tracheal deviation present. No thyromegaly present. Cardiovascular: Normal rate and regular rhythm. Pulmonary/Chest: Effort normal and breath sounds normal. No respiratory distress. Musculoskeletal: Normal range of motion. Neurological: He is alert and oriented to person, place, and time. Skin: Skin is dry. Psychiatric: He has a normal mood and affect. His behavior is normal. Thought content normal. Lab Review: 04/09/17 TSH 1.29, FT4--1.13 11/15/11: A. THYROID RIGHT, FINE NEEDLE ASPIRATE Benign. Consistent with colloid nodule. B. THYROID LEFT, FINE NEEDLE ASPIRATE Benign. Consistent with colloid nodule. Radiology Review: US: 03/29/16 Right lobe: 5.5 x 1.8 x 1.4 cm. There is a homogeneous echotexture. Multiple right thyroid nodules.Largest nodule is seen in the mid right thyroid gland measuring 13x11 mm. The lesion is solid with regular margins and marcus-nodular doppler flow. Left lobe: 5.4 x 1.8 x 1.2 cm. There is a homogeneous echotexture. Multiple left thyroid nodules. Largest nodule is seen in the inferior left thyroid lobe measuring 14x10 mm. The lesion is solid withregular margins and intra-nodular doppler flow. 04/09/17 thyroid ultrasound performed at [facility] Comparison: 03/29/16 Right lobe: 1.5 x 2.3 x 1.2 cm. Homogenous echotexture. 1.3 x 1.1 x 0.8 cm isoechoic nodule with mildly hypoechoic rim in the mid to lower thyroid. There is marcus-nodular vascularity Left lobe 5.4 x 1.9 x 1.3 cm. Homogenous echotexture. There are 3 nodules. 1.3 x 1.1 x 1.1 cm solidand cystic nodule in the mid to lower lobe. This has become predominantly cystic when compared to the prior study. There is a 5 mm hypoechoic nodule in the posterior lower lobe which may represent a thyroid nodule or parathyroid gland. This was not previously described. There is also a 5 x 5 x 3 mmhypoechoic nodule along the anterior aspect of the thyroid gland; unchanged from prior study.. Nodular vascularity is seen. Isthmus measures 0.3 cm. Regional lymph nodes are normal. Impression: Stable findings of right thyroid. Increasing cystic component within the largest nodulein the left lobe. Findings are otherwise unchanged 08/11/18 Thyroid ultrasound Findings: Right lobe: The right lobe of the thyroid gland measures 5.1 x 1.7 x 1.1 cm. There is homogeneous echotexture. There are 2 complex nodules, one in the upper pole measuring 1.2 x 1.0 x 0.7 cm and a second 1 in the lower pole measuring 6 x 4 x 4 mm Left lobe: The left lobe of the thyroid gland measures 5.2 x 1.5 x 1.5 cm. There is a homogeneous echotexture. At least 2 complex midpole nodules, largest one measuring 1.4 x 1.1 x 1.2 cm. Isthmus: The isthmus measures 2 mm. The regional lymph nodes are normal Impression: Slightly enlarged thyroid with several small complex nodules. Assessment: Dx: SNOMED CT(R) 1. Multinodular goiter (nontoxic) NON-TOXIC MULTINODULAR GOITER T4, Free TSH Lynn Coronado is a 73 y.o. male returns for follow up of multinodular goiter. Patient's symptoms reviewed. He was made aware that certainly his complaints could be from his thyroid however that is probably less likely. His ultrasound is remained stable the past couple of years. Suggested possible ENT evaluation to further evaluate his complaints. Again certainly he can be having these complaints from his nodules on his thyroid, but it may be beneficial for the patient to rule out all other causes first. Patient's most recent US completed 08/11/18 which show Findings unchanged from previous. This diagnosis was discussed and reviewed. Because his ultrasound and exam have been stable for several years, will follow up with repeat testing including TFTs and thyroid ultrasound in 2 years. He may need to call office for requisitions in order to schedule these tests before follow-up appointment. Plan: 1. Continue off thyroid medications 2. Repeat Thyroid US: 2 year. Recommend ENT evaluation for patient's above complaints. He states Michael has an ENT and will call their office for follow- up soon. 4. The risks and benefits of my recommendations, as well as other treatment options were discussed with the patient today. Questions were answered. 5. Follow up: 2 year and as needed. Orders Placed This Encounter Procedures T4, Free TSH Electronically signed by Jacqui HICKEY 191:35 PM documented in this encounterThere may be information available, but it has not been provided by the sender. Chief Complaint Chief Complaint Description Start Date neck pain Preliminary chief co mplaint data, not yet signed by the author as of Instructions Instruction Description Start Date CompletedPlease follow-up wi Primary Care Physician or Audio Visual Secretary for treatment or adjustment of medication regarding elevated blood pressure.Patient advised to follow-up with Primary Care Physician for BMI management. Review of System There may be information available, but it has not been provided by the sender. Additional Source Comments (unrecognized sect ion and content) No Status Records FoundNo Status Records Found INFORMATION SOURCE (unrecogn ized section and content) DATE CREATED AUTHOR AUTHOR'S ORGANIZ ATION 08/26/2020 [facility] Reason for Visit (unrecogniz ed section and content) Reason For Visit Description Start Date New Complaint Preliminary reason f or visit data, not yet signed by the author as of neck pain FOR RECORDS PERTAINING TO PATIENTS WHO ARE OR HAVE BEEN ENROLLED IN A CHEMICAL DEPENDENCY/SUBSTANCEABUSE PROGRAM, SOME INFORMATION MAY BE OMITTED. This clinical summary was aggregated from multiple sources. Caution should be exercised in using it in the provision of clinical care. This summary normalizes information from multiple sources, and as a consequence, information in this document may materially change the coding, format and clinical context of patient data. In addition, data may be omitted in some cases. CLINICAL DECISIONS SHOULD BE BASED ON THE PRIMARY CLINICAL RECORDS. [employer] provides no warranty or guarantee of the accuracy or completeness of information in this document.
== END | disposition home or self-care (01) ==
LOC: MTRAD 14:59
PROVIDERS: PCP Family Medicine; Referring Provider Physician Assistant; Visit Provider Physician Assistant
DX: S49.91XA Unspecified injury of right shoulder and upper arm, initial encounter (principal)
CPT/HCPCS: 73030

== ENCOUNTER → 2023-07-02 | Outpatient (CLI) | payer MEDICARE, OTHER, SELFPAY ==
--- OUTSIDE RECORDS SUMMARY | 2023-07-02 08:48 | XMS RPT_ITS | CCD ---
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 Name Role Phone Michel Tomas Unavailable Unavailable Ericka Santos Unavailable Phillip Mcclure Unavailable Unavailable MD Amara, Adam Brewer Unavailable EDY Patel, Rosanne Orr Unavailable Unavailabl e Gauri Haynes Unavailable Abel Dixon Unavailable Unavailable Gauri Haynes Primary Care Provider Juliana SNOW, Carmen Mejia Unavailable [phone] Michel Tomas Unavailable Unavailable Phillip Mcclure Unavailable Unavailable Tristen Livingston DO Unavailable Gauri Haynes Primary Care Provider Gauri Haynes DO Primary Care Provider ANTOINETTE HAQUE Attending Unavailable GAURI HAYNES Primary Care Unavailable GAURI HAYNES Primary Care Unavailable ANTOINETTE HAQUE Attending Unavailable Allergies Allergy Classification Reported Allergen(s) Allergy Type Date of Onset Reaction(s) Facility Niacin (3 sources) Niacin; Translations: [NIACIN] Drug Allergy 6 Itching [facility] (8 sources) niacin drug allergy 3 itching [facility] Work Phone: (3 sources) niacin Propensity to adverse reactions to drug 6 Itching [facility] Work Phone: (1 source) Niacin Drug Allergy 5 causes extreme itching and flushing [facility] [place] [facility] Work Phone: Medications [...] TABS One tablet by mouth daily ASPIRIN [id number] Pasha Herrmann MD Problems Active Problems Problem Classification Problem Date Documented Da te Episodic/Chronic Coronary atherosclerosis and other heart disease (8 sources) Coronary arteriosclerosis; Translations: [Atherosclerotic heart disease of [place] coronary artery without angina pectoris] Onset: 10-18-2010 [...] (3 sources) Long-term drug therapy; Translations: [Other longterm (current) drug therapy] Onset: 12-04-2010 12-04-2010 Past [...] 10-18-2010 Episodic Other aftercare (5 sources) Other terminal clerk (current) drug therapy; Translations: [Other terminal clerk (current) drug therapy] Onset: 12-04-2010 12-04-2010 Episodic [...] 180.3 cm Antoinette Haque MD Work Phone: [facility] 08-23-2020 12:46-0400 Body mass index (BMI) [Ratio] 25.24 kg/m2 Antoinette Haque MD Work Phone: [facility] 08-23-2020 12:46-0400 Body weight 82.1 kg Antoinette Haque MD Work Phone: [facility] 08-23-2020 12:46-0400 Diastolic blood pressure 92 mm[Hg] Antoinette Haque MD Work Phone: [facility] 08-23-2020 12:46-0400 Heart rate 61 /min Antoinette Haque MD Work Phone: [facility] 08-23-2020 12:46-0400 Systolic blood pressure 163 mm[Hg] Antoinette Haque MD Work Phone: [facility] 08-24-2018 13:01-0400 BMI (Body Mass Index) 24.83 kg/m2 Jacqui Olivas [facility] 08-24-2018 13:01-0400 BP Diastolic 96 mm[Hg] Jacqui Olivas [facility] 08-24-2018 13:01-0400 BP Systolic 155 mm[Hg] Jacqui Olivas [facility] 08-24-2018 13:01-0400 Height 180.3 cm Jacqui Olivas [facility] 08-24-2018 13:01-0400 Pulse (Heart Rate) 56 /min Jacqui Olivas [facility] 08-24-2018 13:01-0400 Weight 80.74 kg Jacqui Olivas [facility] 04-16-2017 10:30-0500 BMI (Body Mass Index) 23.85 kg/m2 Antoinette Haque [facility] Work Phone: 04-16-2017 10:30-0500 BP Diastolic 88 mm[Hg] Antoinette Haque [facility] Work Phone: 04-16-2017 10:30-0500 BP Systolic 118 mm[Hg] Antoinette Haque [facility] Work Phone: 04-16-2017 10:30-0500 Pulse (Heart Rate) 64 /min Antoinette Haque [facility] Work Phone: 04-16-2017 10:30-0500 Weight 77.56 kg Antoinette Haque [facility] Work Phone: 11-08-2016 09:16-0400 BMI (Body [...] 15:09-0400 BMI (Body Mass Index) 22.92 kg/m2 [facility] Work Phone: 10-24-2015 15:09-0400 BP Diastolic 70 mm[Hg] [facility] Work Phone: 10-24-2015 15:09-0400 BP Systolic 100 mm[Hg] [facility] Work Phone: 10-24-2015 15:09-0400 BSA (Body Surface Area) 1.98 m2 [facility] Work Phone: 10-24-2015 15:09-0400 Pulse (Heart Rate) 68 /min [facility] Work Phone: 10-24-2015 15:09-0400 Respiratory Rate 20 /min [facility] Work Phone: 10-24-2015 15:09-0400 Weight 76.66 kg [facility] Work Phone: 04-21-2015 13:52-0500 Heart rate 56 /min Carmen Andrews RN [facility] Work Phone: 10-14-2013 15:14-0400 Height 182.88 cm [facility] Work Phone: 01-02-2012 16:35-0400 Heart rate 423 ms Carmen Andrews RN [facility] Work Phone: 06-13-2011 16:20-0500 BP Diastolic 70 mm[Hg] [facility] Work Phone: 06-13-2011 16:20-0500 BP Systolic 110 mm[Hg] [facility] Work Phone: NEGATED: Highlighted [id number] 13:04-0500 BMI (Body Mass Index) 25.06 kg/m2 Roxanne Gilliam AT [facility] Work Phone: NEGATED: Highlighted [id number] 13:04-0500 Body weight 81.19 kg Roxanne Gilliam AT [facility] Work Phone: NEGATED: Highlighted [id number] 13:04-0500 Body weight 81 kg Roxanne Gilliam AT [facility] Work Phone: NEGATED: Highlighted [id number] 13:04-0500 BP Diastolic 92 mm[Hg] Roxanne Gilliam AT [facility] Work Phone: NEGATED: Highlighted [id number] 13:04-0500 BP Diastolic 82 mm[Hg] Roxanne Gilliam AT [facility] Work Phone: NEGATED: Highlighted [id number] 13:04-0500 BP Systolic 156 mm[Hg] Roxanne Gilliam AT [facility] Work Phone: NEGATED: Highlighted [id number] 13:04-0500 BP Systolic 137 mm[Hg] Roxanne Gilliam AT [facility] Work Phone: NEGATED: Highlighted [id number] 13:04-0500 Height 180.34 cm Roxanne Gilliam AT [facility] Work Phone: NEGATED: Highlighted [id number] 13:04-0500 Height 180 cm Roxanne Gilliam AT [facility] Work Phone: NEGATED: Highlighted [id number] 13:04-0500 Pulse (Heart Rate) 71 /min Roxanne Gilliam AT [facility] Work Phone: Encounters Encounter Date Encounter Type Care Provider Facility Start: 08-23-2020 End: 08-23-2020 ambulatory ANTOINETTE HAQUE [facility] Start: 08-23-2020 End: 08-23-2020 Office outpatient visit 15 minutes Antoinette Haque MD Work Phone: [facility] Procedures Date Procedure Procedure Detail Performing Clinician Start: 03-25-2019 End: 03-25-2019 CERVICAL COLLAR SERPENTINE (BREG) Tristen Livingston DO Work Phone: Start: 04-21-2017 End: 04-29-2017 *Hepatic Function Panel Dominga Mcconnell Start: 04-21-2017 End: 04-29-2017 Lipid panel [AGGREGATE] Dominga Mcconnell Start: 11-08-2016 End: 11-08-2016 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 Work Phone: Start: 11-08-2016 End: 11-08-2016 Follow Up Appt 6 months Stephen Grant FURNACE INSTALLER Work Phone: Start: 10-11-2016 End: 10-18-2016 *Hepatic [...] PA-C Work Phone: Start: 10-06-2014 End: 10-06-2014 CONSTRUCTION EXECUTIVE Carmen Garcia PA-C Work Phone: Start: 10-06-2014 [...] PA-C Work Phone: Start: 06-24-2013 End: 06-24-2013 CONSTRUCTION EXECUTIVE Carmen Garcia PA-C Work Phone: Start: 06-24-2013 [...] Start: 11-07-2029 Tetanus vaccination Tetanus: Every 10yrs [facility] Start: 01-10-2025 Tetanus vaccination Tetanus: Every 10yrs [facility] Start: 08-23-2020 End: 08-23-2020 Office Visit [facility] Start: 01-04-2020 Influenza vaccination given Sequential Influenza Vaccine (#1) [facility] Start: 04-16-2019 Ambulatory 04/16/2019 Office Visit Endocrinology Antoinette Haque MD [facility] Salvatore Neely [place] [id number] [facility] Start: 03-25-2019 End: 03-25-2019 Radex spine cervical 4 or 5 views XR CERVICAL 4VWS FLEX/EXT [facility] Work Phone: Start: 01-03-2018 Influenza vaccination given SEQUENTIAL INFLUENZA VACCINE (#1) [facility] Start: 05-07-2017 End: 05-07-2017 Appointment Appointment [facility] Work Phone: Start: 04-21-2017 End: 04-29-2017 *Hepatic Function Panel *Hepatic Function Panel [facility] Work Phone: Start: 04-21-2017 End: 04-29-2017 Lipid panel [AGGREGATE] *Lipid Profile CC PCP [facility] Work Phone: Start: 01-03-2017 Influenza vaccination SEQUENTIAL INFLUENZA VACCINE (#1) [facility] Work Phone: Start: 11-08-2016 End: 11-08-2016 Appointment Appointment [facility] Work Phone: Start: 11-08-2016 End: 11-08-2016 CONSTRUCTION EXECUTIVE CONSTRUCTION EXECUTIVE [facility] Work Phone: Start: 11-08-2016 End: 11-08-2016 Follow Up Appt 6 months Follow Up Appt 6 months [facility] Work Phone: Start: 10-29-2016 End: 10-29-2016 Appointment Appointment [facility] Work Phone: Start: 10-29-2016 End: 10-29-2016 Appointment Appointment [facility] Work Phone: Start: 10-11-2016 End: 10-18-2016 *Hepatic Function Panel *Hepatic Function Panel [facility] Work Phone: Start: 10-11-2016 End: 10-18-2016 Lipid panel [AGGREGATE] *Lipid Profile CC PCP [facility] Work Phone: Start: 04-24-2016 End: 04-12-2016 *Hepatic Function Panel *Hepatic Function Panel [facility] Work Phone: Start: 04-24-2016 End: 04-12-2016 Lipid panel [AGGREGATE] *Lipid Profile CC PCP [facility] Work Phone: Start: 10-24-2015 End: 10-24-2015 Follow Up Appt 1 year Follow Up Appt 1 year [facility] Work Phone: Start: 10-24-2015 End: 10-24-2015 MMM MMM [facility] Work Phone: Start: 10-17-2015 End: 10-23-2015 *Hepatic Function Panel *Hepatic Function Panel [facility] Work Phone: Start: 10-17-2015 End: 10-23-2015 Lipid panel [AGGREGATE] *Lipid Profile CC PCP [facility] Work Phone: Start: 04-21-2015 End: 04-21-2015 Electrocardiogram, complete EKG (In office) [facility] Work Phone: Start: 04-21-2015 End: 04-21-2015 Follow Up Appt 6 months Follow Up Appt 6 months [facility] Work Phone: Start: 04-21-2015 End: 04-21-2015 [facility] Work Phone: Start: 04-04-2015 End: 04-17-2015 *Hepatic Function Panel *Hepatic Function Panel [facility] Work Phone: Start: 04-04-2015 End: 04-17-2015 Lipid panel [AGGREGATE] *Lipid Profile CC PCP [facility] Work Phone: Start: 10-06-2014 End: 10-06-2014 [facility] Work Phone: Start: 10-06-2014 End: 10-06-2014 Follow Up Appt 6 months Follow Up Appt 6 months [facility] Work Phone: Start: 09-26-2014 End: 10-03-2014 *Hepatic Function Panel *Hepatic Function Panel [facility] Work Phone: Start: 09-26-2014 End: 10-03-2014 Lipid panel [AGGREGATE] *Lipid Profile CC [facility] Work Phone: Start: 04-05-2014 End: 04-05-2014 Follow Up Appt 6 months Follow Up Appt 6 months [facility] Work Phone: Start: 04-05-2014 End: 04-05-2014 [facility] Work Phone: Start: 12-03-2013 End: 03-28-2014 *Hepatic Function Panel *Hepatic Function Panel [facility] Work Phone: Start: 12-03-2013 End: 03-28-2014 Lipid panel [AGGREGATE] *Lipid Profile CC [facility] Work Phone: Start: 10-14-2013 End: 10-14-2013 CONSTRUCTION EXECUTIVE CONSTRUCTION EXECUTIVE [facility] Work Phone: Start: 10-14-2013 End: 10-14-2013 Follow Up Appt 6 months Follow Up Appt 6 months [facility] Work Phone: Start: 10-14-2013 End: 10-14-2013 MMM MMM [facility] Work Phone: Start: 09-02-2013 End: 09-02-2013 Follow Up Appt Other Follow Up Appt Other [facility] Work Phone: Start: 09-02-2013 End: 09-02-2013 Nuclear stress test -exercise Nuclear stress test -exercise [facility] Work Phone: Start: 06-24-2013 End: 06-24-2013 [facility] Work Phone: Start: 06-24-2013 End: 06-24-2013 Follow Up Appt 6 months Follow Up Appt 6 months [facility] Work Phone: Start: 06-24-2013 End: 06-24-2013 Follow Up Appt Other Follow Up Appt Other [facility] Work Phone: Start: 06-05-2013 End: 06-28-2013 *BMP *BMP [facility] Work Phone: Start: 06-05-2013 End: 06-29-2013 *Hepatic Function Panel *Hepatic Function Panel [facility] Work Phone: Start: 06-05-2013 End: 06-29-2013 Lipid panel [AGGREGATE] *Lipid Profile CC PCP [facility] Work Phone: Start: 03-23-2013 End: 03-23-2013 *BMP *BMP [facility] Work Phone: Start: 03-23-2013 End: 03-23-2013 CBC W Auto Differential panel - Blood *CBC without Diff [facility] Work Phone: Start: 03-23-2013 End: 09-02-2013 Chest x-ray X-Ray, Chest, PA & Lateral [facility] Work Phone: Start: 03-23-2013 End: 03-23-2013 Coagulation factor induced.INR assay in platelet poor plasma *PT/INR [facility] Work Phone: Start: 03-23-2013 End: 03-23-2013 Electrocardiogram, complete EKG (In office) [facility] Work Phone: Start: 03-23-2013 End: 03-23-2013 Left Heart Cath Left Heart Cath [facility] Work Phone: Start: 03-15-2013 Administration of herpes zoster vaccine Zoster Vaccines (2 of 3) [facility] Start: 12-22-2012 End: 12-22-2012 Follow Up Appt 6 months Follow Up Appt 6 months [facility] Work Phone: Start: 12-22-2012 End: 12-22-2012 MMM MMM [facility] Work Phone: Start: 12-03-2012 End: 12-28-2012 *Hepatic Function Panel *Hepatic Function Panel [facility] Work Phone: Start: 12-03-2012 End: 12-28-2012 Lipid panel [AGGREGATE] *Lipid Profile [facility] Work Phone: Start: 06-05-2012 End: 04-01-2012 *Hepatic Function Panel *Hepatic Function Panel [facility] Work Phone: Start: 06-05-2012 End: 06-17-2012 Lipid panel [AGGREGATE] *Lipid Profile [facility] Work Phone: Start: 2012 Fall risk assessment Falls Risk Assessment [facility] Start: 2012 Pneumococcal vaccination PNEUMOCOCCAL VACCINE AGE 65+ (1 of 2 - PCV13) [facility] Work Phone: Start: 2012 Ultrasound scan of abdominal aorta ABDOMINAL AORTIC ULTRASOUND [facility] Work Phone: Start: 01-02-2012 End: 01-02-2012 Electrocardiogram, complete EKG (In office) [facility] Work Phone: Start: 01-02-2012 End: 01-03-2012 Follow Up Appt 1 year Follow Up Appt 1 year [facility] Work Phone: Start: 12-04-2011 End: 12-23-2011 *Hepatic Function Panel *Hepatic Function Panel [facility] Work Phone: Start: 12-04-2011 End: 12-23-2011 Lipid panel [AGGREGATE] *Lipid Profile [facility] Work Phone: Start: 06-13-2011 End: 06-13-2011 Follow Up Appt 6 months Follow Up Appt 6 months [facility] Work Phone: Start: 2007 Zoster vacc, sc ZOSTER VACCINE [facility] Work Phone: Start: 1997 Administration of herpes zoster vaccine Zoster Vaccines (1 of 2) [facility] Start: 1997 Screening for malignant neoplasm of colon [facility] Start: 1965 Hepatitis C antibody, confirmatory test Hepatitis C Screening [facility] Start: 1965 Hepatitis C screening Hepatitis C Screening [facility] Start: 1963 COVID-19 Vaccine (1 of 2) COVID-19 Vaccine (1 of 2) [facility] Start: 1959 Adolescent depression screening assessment Depression Screening (PHQ9) [facility] Start: 1959 Depression screening using PHQ-9 (Patient Health Questionnaire 9) score Depression Screening (PHQ9) [facility] Start: 1950 History and physical examination, annual for health maintenance Wellness Visit [facility] Start: 1947 Fall risk assessment Falls Risk Assessment [facility] Start: 1947 Hepatitis C antibody, confirmatory test HEPATITIS C SCREENING [facility] Start: 1947 HEPATITIS C SCREENING HEPATITIS C SCREENING [facility] Work Phone: Start: 1947 Prostate specific antigen measurement PSA Level [facility] Start: 1947 Screening colonoscopy COLONOSCOPY [facility] Work Phone: Start: 1947 Screening for malignant neoplasm of colon Colorectal Cancer Screening: Colonoscopy [facility] Start: 1947 Tetanus vaccination TETANUS EVERY 10 YR [facility] Work Phone: Start: 1947 US scan of abdominal aorta Abdominal Aortic Ultrasound [facility] Patient Education [facility] Work Phone: End: 08-25-2019 T4 free mass conc T4, Free Routine Multinodular goiter (nontoxic) 1 Occurrences starting 08/24/2018 until 08/25/2019 [facility] Payers Date Payer Category Payer Unknown [id number] 2015 Unknown AARP A[employer] xxxxxxxxxxx 2015-Present [id number] 2015 Unknown [facility] [id number] 2015-Present [id number] 2012 Medicare [id number] 2012 Medicare MEDICARE MEDICAR E PART A & B xxxxxxxxxx 2012-Present [place] xxxxxxxxxx [id number] 2012 Medicare MEDICARE MEDICAR E PART A & B [id number] 2012-Present [place] [id number] 1947 Unknown [id number] 1947 Unknown [id number] Medicare [id number] Unknown [id number] Social History Date Type Detail Facility Start: 04-16-2017 End: 08-24-2018 Tobacco smoking status VAIS Former smoker [facility] Work Phone: End: 05-04-1980 History of tobacco use Current smoker [facility] Work Phone: Sex Assigned At Not on file [facility] Work Phone: Start: 03-29-2019 End: 03-29-2019 Assertion Unknown if ever smoked [facility] Work Phone: Start: 08-24-2018 End: 08-23-2020 Tobacco use and exposure Never used [facility] Start: 08-24-2018 End: 08-23-2020 Alcohol intake Current non-drinker of alcohol (finding) [facility] Exposure to SARS-CoV-2 (event) Not sure [facility] NEGATED: Highlighted rowStart: 03-25-2019 End: 03-25-2019 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 [facility] Work Phone: History of [...] FNA biopsy of bilateral nodules 11/15/11 at [facility]. Mr. Coronado is a 75-year-old male patient has a history of multinodular goiter which was biopsied back in November 2011, found to be benign. He was last seen here in August, and is here for 2-year follow-up. He had an ultrasound done at [facility] on 08/16/2020 along with TFTs. Results [...] 1.29, FT4--1.13 11/15/11: (FNA biopsies done at [facility], likely by Dr. Ratliff) A. [...] doppler flow. 04/09/17 thyroid ultrasound performed at [facility] Comparison: 03/29/16 Right lobe: 1.5 [...] 08/23/20 3:03 PM documented in this encounter [facility] Evaluation note Note Date & Type Note Facility documented in this encounter [facility] Evaluation note Note Date & Type Note Facility documented in this encounter [facility] Assessments Diagnosis Multinodular goiter (nontoxi c) - Primary Nontoxic multinodular goiter Diagnosis Multinodular goiter (nontoxic)- Primary Nontoxic multinodular goiter Summary Purpose Family History No Family History Records FoundThere may be information available, but it has not been provided by the sender.No Family History Records Found Advance Directives Documents on File Type Date 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 male Subjective: Lynn Coronado is a 73 y.o. male who returns to our office for follow up of: multinodular goiter. Patient status post FNA biopsy of bilateral nodules 11/15/11 at [facility]. Mr. Coronado is a 73-year-old male [...] doppler flow. 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 [employer] provides no warranty or guarantee of the accuracy or completeness of information in this document.
[2023-07-02 11:08] LABS: AST(SGOT) 35 U/L (15-37); Alanine Aminotransfer ALT/SGPT 44 U/L (16-61); Albumin, Serum 3.8 g/dL (3.2-5.0); Alkaline Phosphatase 76 U/L (45-117); Bilirubin, Direct 0.31 mg/dL (0.00-0.30); Cholesterol 139 mg/dL (200); Globulin 2.9 g/dL (2.2-4.2); High Density Lipoprotein 46 mg/dL; Protein, Total 6.7 g/dL (6.4-8.2); Triglycerides 64 mg/dL; Very Low Density Lipoprotein 13 mg/dL (5-40)
== END | disposition home or self-care (01) ==
LOC: LAB 08:27
PROVIDERS: PCP Family Medicine; Referring Provider Internal Medicine Cardiovascular Disease; Visit Provider Internal Medicine Cardiovascular Disease
DX: E78.00 Pure hypercholesterolemia, unspecified (principal)
CPT/HCPCS: 36415; 80061; 80076

== ENCOUNTER → 2023-07-10 | Outpatient (CLI) | payer MEDICARE, OTHER, SELFPAY ==
--- NOTE | 2023-07-10 18:25 | US_ITS ---
EXAM: US SOFT TISSUES HEAD AND NECK, THYROID CLINICAL INDICATION: goiter TECHNIQUE: Greyscale and color doppler imaging was performed of the thyroid gland. COMPARISON: 08/16/2020. FINDINGS: LEFT THYROID LOBE: Solid/cystic nodule measuring 1.2 x 0.9 x 0.9 cm left lobe of the thyroid is isoechoic, wider than tall, ill-defined without echogenic foci. Solid nodule measuring 1.1 x 0.7 x 0.8 cm left lobe of the thyroid is isoechoic, wider than tall, smooth, without echogenic foci. Cystic nodule measuring 0.3 x 0.2 x 0.4 cm left lobe of the thyroid. The left lobe of the thyroid lobe measures 4.8 x 1.6 x 1.5 cm. RIGHT THYROID LOBE: Solid nodule measuring 1.0 x 0.9 x 0.7 cm right lobe of the thyroid is isoechoic, wider than tall, smooth, without echogenic foci. Spongiform nodule measuring 0.4 x 0.3 x 0.4 cm right lobe of the thyroid. The right lobe of the thyroid lobe measures 4.9 x 1.7 x 1.2 cm. ISTHMUS: Unremarkable. No thyroid nodules are present. The isthmus measures 0.1 cm in thickness. US/Thyroid IMPRESSION: 1. Solid nodule measuring 1.0 x 0.9 x 0.7 cm right lobe of the thyroid is isoechoic, wider than tall, smooth, without echogenic foci. TI-RADS points: 3. TI-RADS category: TR3. This nodule is mildly suspicious but no FNA or follow-up is necessary given the small size of this nodule. 2. Spongiform nodule measuring 0.4 x 0.3 x 0.4 cm right lobe of the thyroid. TI-RADS points: 0. TI-RADS category: TR1. This nodule is benign and no FNA or follow-up is necessary. 3. Solid/cystic nodule measuring 1.2 x 0.9 x 0.9 cm left lobe of the thyroid is isoechoic, wider than tall, ill-defined without echogenic foci. TI-RADS points: 2. TI-RADS category: TR2. This nodule is not suspicious and no FNA or follow-up is necessary. 4. Solid nodule measuring 1.1 x 0.7 x 0.8 cm left lobe of the thyroid is isoechoic, wider than tall, smooth, without echogenic foci. TI-RADS points: 3. TI-RADS category: TR3. This nodule is mildly suspicious but no FNA or follow-up is necessary given the small size of this nodule. 5. Cystic nodule measuring 0.3 x 0.2 x 0.4 cm left lobe of the thyroid. TI-RADS points: 0. TI-RADS category: TR1. This nodule is benign and no FNA or follow-up is necessary. Electronically Signed: Mikey Cowan MD at 4:18 EST ,
--- OUTSIDE RECORDS SUMMARY | 2023-07-10 21:02 | XMS RPT_ITS | CCD ---
Author Name Unknown Address [address] [place] [address] Organization [facility] Care Team Providers Care Cardiothoracic Anesthesia Technician Name Role Phone Michel Tomas Unavailable Unavailable Ean Santosssnelsy Kulkarni Unavailable Phillip Mcclure Unavailable Unavailable MD Amara, Adam Brewer Unavailable EDY Patel, Rosanne Orr Unavailable Unavailabl e Gauri Haynes Unavailable Abel Dixon Unavailable Unavailable Gauri Haynes Primary Care Provider Juliana SNOW, Carmen Mejia Unavailable [phone] Michel Tomas Unavailable Unavailable Phillip Mcclure Unavailable Unavailable Tristen Livingston DO Unavailable Gauri Haynes Primary Care Provider Gauri Haynes DO Primary Care Provider ANTOINETTE HAQUE Attending Unavailable GAURI HAYNES Primary Care Unavailable GAURI HAYNES Primary Care Unavailable ANTOINETTE HAQUE Attending Unavailable Gauri Haynes DO Primary Care Provider Allergies Allergy Classification Reported Allergen(s) Allergy Type Date of Onset Reaction(s) Facility Niacin (3 sources) Niacin; Translations: [NIACIN] Drug Allergy 6 Itching [facility] (8 sources) niacin drug allergy [address] [facility] Work Phone: (4 sources) niacin Propensity to adverse reactions to drug 6 Itching [facility] Work Phone: (1 source) Niacin Drug Allergy 5 causes extreme itching and flushing [facility] Work Phone: Medications [...] fish oil-omega-3 fatty acids 300-1,000 mg capsule (5 sources) take 1 capsule by mouth once daily fish oil-omega-3 fatty acids 300-1,000 mg capsule Take 2 g by mouth daily. 0 Active metoprolol tartrate 50 mg oral tablet (20 sources) beta-Adrenergic Giovanni Start: 10-18-2010 metoprolol tartrate (LOPRESSOR) 50 MG tablet Take 50 mg by mouth. 0 11/15/2011 Active multivitamin capsule (6 sources) take 1 capsule by mouth once daily multivitamin capsule take 1 capsule by oral route every day 0 Active Completed/Discontinued Medications Medication Drug Class(es) Dates Sig (Normalized) Sig (Original) aspirin 81 mg delayed release oral tablet (20 sources) Nonsteroidal Anti-inflammatory Drug Start: 01-02-2012 take 1 tablet by mouth once daily ASPIRIN 81 MG TABS One tablet by mouth daily ASPIRIN [id number] Pasha Herrmann MD Problems Active Problems Problem Classification Problem Date Documented Da te Episodic/Chronic Coronary atherosclerosis and other heart disease (8 sources) Coronary arteriosclerosis; Translations: [Atherosclerotic heart disease of [place] coronary artery without angina pectoris] Onset: 10-18-2010 [...] disc] Onset: 03-25-2019 03-25-2019 Chronic Thyroid disorders (13 sources) Non-toxic multinodular goiter; Translations: [Nontoxic multinodular goiter] Onset: 09-02-2010 04-16-2016 Chronic Unclassified (1 source) Unknown / UNK(Unknown) Onset: 04-24-2018 Unclassified (3 sources) Long-term drug therapy; Translations: [Other usp (current) drug therapy] Onset: 12-04-2010 12-04-2010 Past [...] 10-18-2010 Episodic Other aftercare (5 sources) Other usp (current) drug therapy; Translations: [Other usp (current) drug therapy] Onset: 12-04-2010 12-04-2010 Episodic [...] 180.3 cm Antoinette Haque MD Work Phone: [facility] 08-23-2020 12:46-0400 Body mass index (BMI) [Ratio] 25.24 kg/m2 Antoinette Haque MD Work Phone: [facility] 08-23-2020 12:46-0400 Body weight 82.1 kg Antoinette Haque MD Work Phone: [facility] 08-23-2020 12:46-0400 Diastolic blood pressure 92 mm[Hg] Antoinette Haque MD Work Phone: [facility] 08-23-2020 12:46-0400 Heart rate 61 /min Antoinette Haque MD Work Phone: [facility] 08-23-2020 12:46-0400 Systolic blood pressure 163 mm[Hg] Antoinette Haque MD Work Phone: [facility] 08-24-2018 13:01-0400 BMI (Body Mass Index) 24.83 kg/m2 Jacqui Olivas [facility] 08-24-2018 13:01-0400 BP Diastolic 96 mm[Hg] Jacqui Olivas [facility] 08-24-2018 13:01-0400 BP Systolic 155 mm[Hg] Jacqui Olivas [facility] 08-24-2018 13:01-0400 Height 180.3 cm Jacqui Olivas [facility] 08-24-2018 13:01-0400 Pulse (Heart Rate) 56 /min Jacqui Olivas [facility] 08-24-2018 13:01-0400 Weight 80.74 kg Jacqui Olivas [facility] 04-16-2017 10:30-0500 BMI (Body Mass Index) 23.85 kg/m2 Antoinette Haque [facility] Work Phone: 04-16-2017 10:30-0500 BP Diastolic 88 mm[Hg] Antoinette Haque [facility] Work Phone: 04-16-2017 10:30-0500 BP Systolic 118 mm[Hg] Antoinette Haque [facility] Work Phone: 04-16-2017 10:30-0500 Pulse (Heart Rate) 64 /min Antoinette Haque [facility] Work Phone: 04-16-2017 10:30-0500 Weight 77.56 kg Antoinette Haque [facility] Work Phone: 11-08-2016 09:16-0400 BMI (Body Mass Index) 25.14 kg/m2 [facility] Work Phone: 11-08-2016 09:16-0400 BP Diastolic 78 mm[Hg] [facility] Work Phone: 11-08-2016 09:16-0400 BP Systolic 122 mm[Hg] [facility] Work Phone: 11-08-2016 09:16-0400 Height 182.88 cm [facility] Work Phone: 11-08-2016 09:16-0400 Pulse (Heart Rate) 52 /min [facility] Work Phone: 11-08-2016 09:16-0400 Respiratory Rate 20 /min [facility] Work Phone: 11-08-2016 09:16-0400 Weight 84.1 kg [facility] Work Phone: 10-24-2015 15:09-0400 BMI (Body Mass Index) 22.92 kg/m2 [facility] Work Phone: 10-24-2015 15:09-0400 BP Diastolic 70 mm[Hg] [facility] Work Phone: 10-24-2015 15:09-0400 BP Systolic 100 mm[Hg] [facility] Work Phone: 10-24-2015 15:09-0400 BSA (Body Surface Area) 1.98 m2 [facility] Work Phone: 10-24-2015 15:09-0400 Pulse (Heart Rate) 68 /min [facility] Work Phone: 10-24-2015 15:09-0400 Respiratory Rate 20 /min [facility] Work Phone: 10-24-2015 15:09-0400 Weight 76.66 kg [facility] Work Phone: 04-21-2015 13:52-0500 Heart rate 56 /min Carmen Andrews RN [facility] Work Phone: 10-14-2013 15:14-0400 Height 182.88 cm [facility] Work Phone: 01-02-2012 16:35-0400 Heart rate 423 ms Carmen Andrews RN [facility] Work Phone: 06-13-2011 16:20-0500 BP Diastolic 70 mm[Hg] [facility] Work Phone: 06-13-2011 16:20-0500 BP Systolic 110 mm[Hg] [facility] Work Phone: NEGATED: Highlighted [id number] 13:04-0500 BMI (Body Mass Index) 25.06 kg/m2 Roxanne Gilliam AT [facility] Work Phone: NEGATED: Highlighted [id number] 13:04-0500 Body weight 81.19 kg Roxanne Gilliam AT [facility] Work Phone: NEGATED: Highlighted [id number] 13:04-0500 Body weight 81 kg Roxanne Gilliam AT [facility] Work Phone: NEGATED: Highlighted [id number] 13:04-0500 BP Diastolic 92 mm[Hg] Roxanne Gilliam AT [facility] Work Phone: NEGATED: Highlighted [id number] 13:04-0500 BP Diastolic 82 mm[Hg] Roxanne Gilliam AT [facility] Work Phone: NEGATED: Highlighted [id number] 13:04-0500 BP Systolic 156 mm[Hg] Roxanne Gilliam AT [facility] Work Phone: NEGATED: Highlighted [id number] 13:04-0500 BP Systolic 137 mm[Hg] Roxanne Gilliam AT [facility] Work Phone: NEGATED: Highlighted [id number] 13:04-0500 Height 180.34 cm Roxanne Gilliam AT [facility] Work Phone: NEGATED: Highlighted [id number] 13:04-0500 Height 180 cm Roxanne Gilliam AT [facility] Work Phone: NEGATED: Highlighted [id number] 13:04-0500 Pulse (Heart Rate) 71 /min Roxanne Gilliam AT [facility] Work Phone: Encounters Encounter Date Encounter Type Care Provider Facility Start: 07-08-2023 Orders Only Antoinette Carvajal MD Work Phone: [facility] Procedures Date Procedure Procedure Detail Performing Clinician Start: 03-25-2019 End: 03-25-2019 CERVICAL COLLAR SERPENTINE (BRESourav) Tristen Livingston DO Work Phone: Start: 04-21-2017 End: 04-29-2017 *Hepatic Function Panel Dominga Mcconnell Start: 04-21-2017 End: 04-29-2017 Lipid panel [AGGREGATE] Dominga Mcconnell Start: 11-08-2016 End: 11-08-2016 COMPUTERIZED MACHINE FABRIC CUTTER Stephen Grant COUNTER POCKET TRIMMER Work Phone: Start: 11-08-2016 End: 11-08-2016 Follow Up Appt 6 months Stephen Grant COUNTER POCKET TRIMMER Work Phone: Start: 10-11-2016 End: 10-18-2016 *Hepatic Function Panel Carmen Orr Rodney singleton PA-C Work Phone: Start: 10-11-2016 End: 10-18-2016 Lipid panel [AGGREGATE] Carmen Orr Rodney singleton PA-C Work Phone: Start: 04-12-2016 End: 04-12-2016 *Hepatic Function Panel Carmen singleton PA-C Work Phone: Start: 04-12-2016 End: 04-12-2016 Lipid panel [AGGREGATE] Carmen Dominga Rodney singleton PA-C Work Phone: Start: 10-24-2015 End: 10-24-2015 Follow Up Appt 1 year Adam Maloney MD Start: 10-24-2015 End: 10-24-2015 VERO Maloney MD Start: 10-17-2015 End: 10-23-2015 *Hepatic Function Panel Carmen singleton PA-C Work Phone: Start: 10-17-2015 End: 10-23-2015 Lipid panel [AGGREGATE] Carmen singleton PA-C Work Phone: Start: 04-21-2015 End: 04-21-2015 Electrocardiogram, complete Adam Maloney MD Start: 04-21-2015 End: 04-21-2015 Follow Up Appt 6 months Dominga Mcconnell Start: 04-21-2015 End: 04-21-2015 MMDominga Maloney MD Start: 04-04-2015 End: 04-17-2015 *Hepatic Function Panel Carmen singleton PA-C Work Phone: Start: 04-04-2015 End: 04-17-2015 Lipid panel [AGGREGATE] Carmen singleton PA-C Work Phone: Start: 10-06-2014 End: 10-06-2014 COMPUTERIZED MACHINE FABRIC CUTTER Carmen Garcia PA-C Work Phone: Start: 10-06-2014 [...] months Dominga Mcconnell Start: 04-05-2014 End: 04-05-2014 MMM Adam Maloney MD Start: 12-03-2013 End: 03-28-2014 *Hepatic [...] PA-C Work Phone: Start: 06-24-2013 End: 06-24-2013 COMPUTERIZED MACHINE FABRIC CUTTER Carmen Garcia PA-C Work Phone: Start: 06-24-2013 [...] Start: 11-07-2029 Tetanus vaccination Tetanus: Every 10yrs [facility] Start: 01-10-2025 Tetanus vaccination Tetanus: Every 10yrs [facility] Start: 01-03-2023 COVID-19 Vaccine ( season) COVID-19 Vaccine ( season) [facility] Start: 01-03-2023 Influenza vaccination Sequential Influenza Vaccine (#1) [facility] Start: 08-23-2020 End: 08-23-2020 Office Visit [facility] Start: 01-04-2020 Influenza vaccination given Sequential Influenza Vaccine (#1) [facility] Start: 04-16-2019 Ambulatory 04/16/2019 Office Visit Endocrinology Antoinette Haque MD [address] [place] [id number] [facility] Start: 03-25-2019 End: 03-25-2019 Radex spine cervical 4 or 5 views XR CERVICAL 4VWS FLEX/EXT [facility] Work Phone: Start: 01-03-2018 Influenza vaccination given SEQUENTIAL INFLUENZA VACCINE (#1) [facility] Start: 05-07-2017 End: 05-07-2017 Appointment Appointment [facility] Work Phone: Start: 04-21-2017 End: 04-29-2017 *Hepatic Function Panel *Hepatic Function Panel [facility] Work Phone: Start: 04-21-2017 End: 04-29-2017 Lipid panel [AGGREGATE] *Lipid Profile CC PCP [facility] Work Phone: Start: 01-03-2017 Influenza vaccination SEQUENTIAL INFLUENZA VACCINE (#1) [facility] Work Phone: Start: 11-08-2016 End: 11-08-2016 Appointment Appointment [facility] Work Phone: Start: 11-08-2016 End: 11-08-2016 COMPUTERIZED MACHINE FABRIC CUTTER COMPUTERIZED MACHINE FABRIC CUTTER [facility] Work Phone: Start: 11-08-2016 End: 11-08-2016 Follow Up Appt 6 months Follow Up Appt 6 months [facility] Work Phone: Start: 10-29-2016 End: 10-29-[address] [facility] Work Phone: Start: 10-29-2016 End: 10-29-2016 Appointment Appointment [facility] Work Phone: Start: 10-11-2016 End: 10-18-2016 *Hepatic Function Panel *Hepatic Function Panel [facility] Work Phone: Start: 10-11-2016 End: 10-18-2016 Lipid panel [AGGREGATE] *Lipid Profile CC PCP [facility] Work Phone: Start: 04-24-2016 End: 04-12-2016 *Hepatic Function Panel *Hepatic Function Panel [facility] Work Phone: Start: 04-24-2016 End: 04-12-2016 Lipid panel [AGGREGATE] *Lipid Profile CC PCP [facility] Work Phone: Start: 10-24-2015 End: 10-24-2015 Follow Up Appt 1 year Follow Up Appt 1 year [facility] Work Phone: Start: 10-24-2015 End: 10-24-[address] [facility] Work Phone: Start: 10-17-2015 End: 10-23-2015 *Hepatic Function Panel *Hepatic Function Panel [facility] Work Phone: Start: 10-17-2015 End: 10-23-2015 Lipid panel [AGGREGATE] *Lipid Profile CC PCP [facility] Work Phone: Start: 04-21-2015 End: 04-21-2015 Electrocardiogram, complete EKG (In office) [facility] Work Phone: Start: 04-21-2015 End: 04-21-2015 Follow Up Appt 6 months Follow Up Appt [address] [facility] Work Phone: Start: 04-21-2015 End: 04-21-2015 [facility] Work Phone: Start: 04-04-2015 End: 04-17-2015 *Hepatic Function Panel *Hepatic Function Panel [facility] Work Phone: Start: 04-04-2015 End: 04-17-2015 Lipid panel [AGGREGATE] *Lipid Profile CC PCP [facility] Work Phone: Start: 10-06-2014 End: 10-06-2014 COMPUTERIZED MACHINE FABRIC CUTTER COMPUTERIZED MACHINE FABRIC CUTTER [facility] Work Phone: Start: 10-06-2014 End: 10-06-2014 Follow Up Appt 6 months Follow Up Appt [address] [facility] Work Phone: Start: 09-26-2014 End: 10-03-2014 *Hepatic Function Panel *Hepatic Function Panel [facility] Work Phone: Start: 09-26-2014 End: 10-03-2014 Lipid panel [AGGREGATE] *Lipid Profile CC PCP [facility] Work Phone: Start: 04-05-2014 End: 04-05-2014 Follow Up Appt 6 months Follow Up Appt [address] [facility] Work Phone: Start: 04-05-2014 End: 04-05-2014 [facility] Work Phone: Start: 12-03-2013 End: 03-28-2014 *Hepatic Function Panel *Hepatic Function Panel [facility] Work Phone: Start: 12-03-2013 End: 03-28-2014 Lipid panel [AGGREGATE] *Lipid Profile CC PCP [facility] Work Phone: Start: 10-14-2013 End: 10-14-2013 [facility] Work Phone: Start: 10-14-2013 End: 10-14-2013 Follow Up Appt 6 months Follow Up Appt [address] [facility] Work Phone: Start: 10-14-2013 End: 10-14-[address] [facility] Work Phone: Start: 09-02-2013 End: 09-02-2013 Follow Up Appt Other Follow Up Appt Other [facility] Work Phone: Start: 09-02-2013 End: 09-02-2013 Nuclear stress test -exercise Nuclear stress test -exercise [facility] Work Phone: Start: 06-24-2013 End: 06-24-2013 [facility] Work Phone: Start: 06-24-2013 End: 06-24-2013 Follow Up Appt 6 months Follow Up Appt [address] [facility] Work Phone: Start: 06-24-2013 End: 06-24-2013 Follow Up Appt Other Follow Up Appt Other [facility] Work Phone: Start: 06-05-2013 End: 06-28-2013 *BMP *BMP [facility] Work Phone: Start: 06-05-2013 End: 06-29-2013 *Hepatic Function Panel *Hepatic Function Panel [facility] Work Phone: Start: 06-05-2013 End: 06-29-2013 Lipid panel [AGGREGATE] *Lipid Profile CC PCP [facility] Work Phone: Start: 03-23-2013 End: 03-23-2013 *BMP *BMP [facility] Work Phone: Start: 03-23-2013 End: 03-23-2013 CBC W Auto Differential panel - Blood *CBC without Diff [facility] Work Phone: Start: 03-23-2013 End: 09-02-2013 Chest x-ray X-Ray, Chest, PA & Lateral [facility] Work Phone: Start: 03-23-2013 End: 03-23-2013 Coagulation factor induced.INR assay in platelet poor plasma *PT/INR [facility] Work Phone: Start: 03-23-2013 End: 03-23-2013 Electrocardiogram, complete EKG (In office) [facility] Work Phone: Start: 03-23-2013 End: 03-23-2013 Left Heart Cath Left Heart Cath [facility] Work Phone: Start: 03-15-2013 Administration of herpes zoster vaccine Zoster Vaccines (2 of 3) [facility] Start: 12-22-2012 End: 12-22-2012 Follow Up Appt 6 months Follow Up Appt [address] [facility] Work Phone: Start: 12-22-2012 End: 12-22-[address] [facility] Work Phone: Start: 12-03-2012 End: 12-28-2012 *Hepatic Function Panel *Hepatic Function Panel [facility] Work Phone: Start: 12-03-2012 End: 12-28-2012 Lipid panel [AGGREGATE] *Lipid Profile [facility] Work Phone: Start: 06-05-2012 End: 04-01-2012 *Hepatic Function Panel *Hepatic Function Panel [facility] Work Phone: Start: 06-05-2012 End: 06-17-2012 Lipid panel [AGGREGATE] *Lipid Profile [facility] Work Phone: Start: 2012 Fall risk assessment Falls Risk Assessment [facility] Start: 2012 Pneumococcal vaccination PNEUMOCOCCAL VACCINE AGE 65+ (1 of 2 - PCV13) [facility] Work Phone: Start: 2012 Ultrasound scan of abdominal aorta ABDOMINAL AORTIC ULTRASOUND [facility] Work Phone: Start: 01-02-2012 End: 01-02-2012 Electrocardiogram, complete EKG (In office) [facility] Work Phone: Start: 01-02-2012 End: 01-03-2012 Follow Up Appt 1 year Follow Up Appt 1 year [facility] Work Phone: Start: 12-04-2011 End: 12-23-2011 *Hepatic Function Panel *Hepatic Function Panel [facility] Work Phone: Start: 12-04-2011 End: 12-23-2011 Lipid panel [AGGREGATE] *Lipid Profile [facility] Work Phone: Start: 06-13-2011 End: 06-13-2011 Follow Up Appt 6 months Follow Up Appt 6 months [facility] Work Phone: Start: 2007 Zoster vacc, sc ZOSTER VACCINE [facility] Work Phone: Start: 1997 Administration of herpes zoster vaccine Zoster Vaccines (1 of 2) [facility] Start: 1997 Screening for malignant neoplasm of colon [facility] Start: 1965 Hepatitis C antibody, confirmatory test Hepatitis C Screening [facility] Start: 1965 Hepatitis C screening Hepatitis C Screening [facility] Start: 1963 COVID-19 Vaccine (1 of 2) COVID-19 Vaccine (1 of 2) [facility] Start: 1959 Adolescent depression screening assessment Depression Screening (PHQ9) [facility] Start: 1959 Depression screening using PHQ-9 (Patient Health Questionnaire 9) score [facility] Start: 1950 History and physical examination, annual for health maintenance Wellness Visit [facility] Start: 1947 Fall risk assessment Falls Risk Assessment [facility] Start: 1947 Hepatitis C antibody, confirmatory test HEPATITIS C SCREENING [facility] Start: 1947 HEPATITIS C SCREENING HEPATITIS C SCREENING [facility] Work Phone: Start: 1947 Prostate specific antigen measurement PSA Level [facility] Start: 1947 Screening colonoscopy COLONOSCOPY [facility] Work Phone: Start: 1947 Screening for malignant neoplasm of colon Colorectal Cancer Screening: Colonoscopy [facility] Start: 1947 Tetanus vaccination TETANUS EVERY 10 YR [facility] Work Phone: Start: 1947 US scan of abdominal aorta Abdominal Aortic Ultrasound [facility] Patient Education [facility] Work Phone: End: 08-25-2019 T4 free mass conc T4, Free Routine Multinodular goiter (nontoxic) 1 Occurrences starting 08/24/2018 until 08/25/2019 [facility] Payers Date Payer Category Payer Unknown [id number] 2015 Unknown AARP AARP COMM[facility]YN [facility] xxxxxxxxxxx 2015-Present xxxxxxxxxxx [id number] 2015 Unknown [facility] [id number] 2015-Present [id number] 2015 Unknown AARP AARP COMMER [facility] [id number] 2015-Present [phone] [address] [place] [address] [id number] 2012 Medicare [id number] 2012 Medicare MEDICARE MEDICAR E PART A & B xxxxxxxxxx 2012-Present [place] xxxxxxxxxx [id number] 2012 Medicare MEDICARE MEDICAR E PART A & B [id number] 2012-Present [place] [id number] 2012 Medicare MEDICARE MEDICAR E PART A & B [id number] 2012-Present [phone] [employer] [id number] [place] [address] [place] [address] [id number] 1947 Unknown [id number] 1947 Unknown [id number] Medicare [id number] Unknown [id number] Social History Date Type Detail Facility Start: 04-16-2016 End: 04-16-2017 Tobacco smoking status DEIS Former smoker [facility] Work Phone: End: 05-04-1980 History of tobacco use Current smoker [facility] Work Phone: Start: 1945 Sex Assigned At Not on file [facility] Work Phone: Start: 03-29-2019 End: 03-29-2019 Assertion Unknown if ever smoked [facility] Work Phone: Start: 04-16-2016 End: 08-24-2018 Tobacco use and exposure Never used [facility] Start: 08-24-2018 End: 08-23-2020 Alcohol intake Current non-drinker of alcohol (finding) [facility] Exposure to SARS-CoV-2 (event) Not sure [facility] End: 05-04-1980 History of tobacco use Cigarette Smoker [facility] Start: 08-23-2020 History of Social function [facility] Start: 08-23-2020 Tobacco use panel [facility] NEGATED: Highlighted rowStart: 03-25-2019 End: 03-25-2019 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 [facility] Work Phone: History of Present illness Narrative 07-08-2023 Antoinette Haque MD - 07/08/2023 8:47 AM EST Note Date & Type Note Facility 07-08-2023 History of Presen t illness Narrative Pt requests follow up appt. Will order ultrasound and TFTs, and follow up appt after testing. CD documented in this encounter [facility] History of Present illness Narrative 08-23-2020 Antoinette Haque MD - 08/23/2020 12:58 PM EDT Note Date & Type Note Facility 08-23-2020 History of Presen t illness Narrative Patient ID: Arturo Coronado is a 75 y.o. male Subjective: Arturo Coronado is a 75 y.o. male who returns to our office for follow up of: multinodular goiter. Patient status post FNA biopsy of bilateral nodules 11/15/11 at [facility]. Mr. Coronado is a 75-year-old male patient has a history of multinodular goiter which was biopsied back in November 2011, found to be benign. He was last seen here in August, and is here for 2-year follow-up. He had an ultrasound done at [facility] on 08/16/2020 along with TFTs. Results [...] 1.29, FT4--1.13 11/15/11: (FNA biopsies done at [facility], likely by Dr. Ratliff) A. THYROID RIGHT, [...] doppler flow. 04/09/17 thyroid ultrasound performed at [facility] Comparison: 03/29/16 Right lobe: 1.5 x 2.3 [...] small size. Assessment: Dx: No diagnosis found. Arturo Coronado is a 75 y.o. male returns [...] 08/23/20 3:03 PM documented in this encounter [facility] Evaluation note Note Date & Type Note Facility documented in this encounter [facility] Evaluation note Note Date & Type Note Facility documented in this encounter [facility] Evaluation note Note Date & Type Note Facility documented in this encounter [facility] Diagnosis Multinodular goiter (nontoxi c) - Primary Nontoxic multinodular goiter Diagnosis Multinodular goiter (nontoxic)- Primary Nontoxic multinodular goiter Summary Purpose Family History No Family History Records FoundThere may be information available, but it has not been provided by the sender.No Family History Records Found Advance Directives Documents on File Type Date Recorded Patient Event Marketing Assistant Expl anation Advance Directives and Living Will Documents on File Type Date Recorded Patient Event Marketing Assistant Expl anation Advance Directives and Livin g Will 08/23/2020 12:38 PM History of Present Illness * Jacqui Olivas, [employer] WORKER - 08/24/2018 1:16 PM EDT Patient ID: Arturo Coronado is a 73 y.o. male Subjective: Arturo Coronado is a 73 y.o. male who returns to our office for follow up of: multinodular goiter. Patient status post FNA biopsy of bilateral nodules 11/15/11 at [facility]. Mr. Coronado is a 73-year-old male [...] doppler flow. 04/09/17 thyroid ultrasound performed at [facility] Comparison: 03/29/16 Right lobe: 1.5 x 2.3 [...] (nontoxic) NON-TOXIC MULTINODULAR GOITER T4, Free TSH Arturo Coronado is a 73 y.o. male returns [...] Instruction Description Start Date CompletedPlease follow-up wi th Primary Care Physician or Airport Duty Manager for treatment or adjustment of medication regarding elevated blood pressure.Patient advised to follow-up with Primary Care Physician for BMI management. Review of System There may be information available, but it has not been provided by the sender. Reason for Referral Specialty Diagnoses / Procedures Referred By Contac t Referred To Contact Diagnoses Goiter, nontoxic, multinodular Procedures US Thyroid Only Antoinette Haque MD [address] [place] [id number] Referral ID Status Reason Start Date Expiration Date V isits Requested Visits Authorized [id number] Authorized 07/08/2023 07/07/2024 1 1 Additional Source Comments (unrecognized sect ion and content) No Status Records FoundNo Status Records Found INFORMATION SOURCE (unrecogn ized section and content) DATE CREATED AUTHOR AUTHOR'S ORGANIZ ATION 08/26/2020 [facility] Reason for Visit (unrecogniz ed section and content) Reason For Visit Description Start Date New Complaint Preliminary reason f or visit data, not yet signed by the author as of neck pain Care Teams (unrecognized sec tion and content) FOR RECORDS PERTAINING TO PATIENTS WHO ARE [...] BE BASED ON THE PRIMARY CLINICAL RECORDS. [employer] provides no warranty or guarantee of the accuracy or completeness of information in this document.
== END | disposition home or self-care (01) ==
LOC: US 18:23
PROVIDERS: PCP Family Medicine; Referring Provider Internal Medicine Endocrinology, Diabetes & Metabolism; Visit Provider Internal Medicine Endocrinology, Diabetes & Metabolism
DX: E04.2 Nontoxic multinodular goiter (principal)
CPT/HCPCS: 76536

== ENCOUNTER → 2023-07-11 | Outpatient (CLI) | payer MEDICARE, OTHER, SELFPAY ==
[2023-07-11 11:05] LABS: T4 Free Direct 0.93 ng/dL (0.76-1.46); Thyroid Stim Hormone (TSH) 2.43 uIU/mL (0.358-3.74)
== END | disposition home or self-care (01) ==
LOC: LAB 09:42
PROVIDERS: PCP Family Medicine; Referring Provider Internal Medicine Endocrinology, Diabetes & Metabolism; Visit Provider Internal Medicine Endocrinology, Diabetes & Metabolism
DX: E04.2 Nontoxic multinodular goiter (principal)
CPT/HCPCS: 36415; 84439; 84443

== ENCOUNTER → 2024-03-15 | Outpatient (CLI) | payer MEDICARE, OTHER, SELFPAY ==
[2024-03-15 11:11] LABS: AST(SGOT) 28 U/L (15-37); Alanine Aminotransfer ALT/SGPT 36 U/L (16-61); Albumin, Serum 3.9 g/dL (3.2-5.0); Alkaline Phosphatase 94 U/L (45-117); Bilirubin, Direct 0.27 mg/dL (0.00-0.30); Cholesterol 129 mg/dL (200); High Density Lipoprotein 46 mg/dL; Protein, Total 6.9 g/dL (6.4-8.2); Triglycerides 53 mg/dL; Very Low Density Lipoprotein 11 mg/dL (5-40)
== END | disposition home or self-care (01) ==
LOC: LAB 10:10
PROVIDERS: PCP Family Medicine; Referring Provider Physician Assistant Medical; Visit Provider Physician Assistant Medical
DX: E78.00 Pure hypercholesterolemia, unspecified (principal)
CPT/HCPCS: 36415; 80061; 80076

== ENCOUNTER 2024-04-03 10:14 | Emergency (ER) | payer MEDICARE, OTHER, SELFPAY ==
[2024-04-03 10:15] VITALS: BP 141/80; PULSE 57; RESP 19; TEMP 35.6; O2SAT 100; BMI 26.1
--- NOTE | 2024-04-03 10:31 | VDLE_ITS ---
Reason For Study: Left leg pain RIGHT LEFT CFV is compressible, spontaneous, phasic, GSV is normal. competent and demonstrates normal CFV is compressible, spontaneous, phasic, augmentation. competent, and demonstrates normal Procedure augmentation. This is a venous duplex using B-mode, color FV is compressible, spontaneous, phasic, flow and spectral Doppler. competent and demonstrates normal Exam performed portable in ED. augmentation. A preliminary report was called and/or faxed POP V is compressible, spontaneous, phasic, to Cristy SNOW. competent and demonstrates normal augmentation. T/P Trunk is compressible. PTV is compressible. LT PerV is compressible. VL/Venous Duplex US, Unilateral Interpretation Summary Deep veins of the left lower extremity are patent and compressible segmentally. There is no evidence of left lower extremity deep vein thrombosis. Valvular competence appears intac t within the proximal deep venous system on the left . The left great saphenous vein appears patent a nd compressible segmentally. The right common femoral vein is patent and compressible . Ordering Physician: Lisa Fernandez Referring Physician: Fran Haynes M.D. Performed By: Kate Mcleod RVT
--- NOTE | 2024-04-03 10:32 | EDS_ITS ---
HPI History of Present Illness Chief Complaint: Lower Extremity Injury Detail of Chief Complaint: Left leg pain Informant: patient Narrative Narrative: Patient presents with left leg pain that has had for about 2 weeks. Patient states that 2 weeks ago he was working in the yard developed some soreness behind both knees and did not think much of it. After 1 day the soreness in the right leg went away but continued in the left leg. Pain at times in the calf and down to about the foot but now in the last day or 2 he has had discomfort all the way up to the thigh to his groin. He denies chest pain or shortness of breath. 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 Currently not anticoagulated but does take Plavix. He has history of a cardiac stent. [facility] Medical History Right shoulder strain Scabies Thyroid goiter Back pain due to injury Family history of colon cancer Seborrheic keratoses Cervical disc disease Cervical cord compression with myelopathy Painful neck Swallowing problem Chronic back pain Nonrheumatic mitral (valve) prolapse Essential (primary) hypertension Back pain Obstructive sleep apnea GERD (gastroesophageal reflux disease) Atherosclerosis of coronary artery of [place] heart without angina pectoris Hyperlipidemia Home Medications ?Medication ?Instructions ?Recorded ?Last Taken ?Type coenzyme [id number] 100 mg-20 1 ea PO DAILY 03/25/13 07/03/20 History mg capsule multivitamin with folic acid 400 1 tab PO DAILY 03/25/13 07/03/20 History mcg tablet omega-3 fatty acids 1,000 mg 1,000 mg PO DAILY 08/20/18 07/03/20 History capsule aspirin 81 mg chewable tablet 81 mg PO DAILY #90 tabs 08/15/20 11/19/21 Rx clopidogrel 75 mg tablet See Rx Instructions .Route 06/24/23 Unknown Rx .COMPLEX #90 tabs atorvastatin 80 mg tablet See Rx Instructions .Route 07/04/23 Unknown Rx .COMPLEX #90 tabs lisinopril 10 mg tablet 10 mg PO BID #180 tabs 07/04/23 Unknown Rx metoprolol tartrate 50 mg tablet 50 mg PO BID #180 tabs 07/04/23 Unknown Rx nitroglycerin 0.4 mg sublingual 0.4 mg sublingual Q5-15M PRN chest 07/04/23 Unknown Rx tablet (Nitrostat) pain #25 tabs benzonatate 200 mg capsule 200 mg PO TID PRN cough #20 caps 01/13/24 Unknown Rx dexamethasone 6 mg tablet 6 mg PO DAILY #5 tabs 01/13/24 Unknown Rx magnesium 200 mg tablet 200 mg PO QDAY 01/13/24 Unknown History amlodipine 2.5 mg tablet 2.5 mg PO DAILY #90 tabs 01/21/24 Unknown Rx pregabalin 50 mg capsule 50 mg PO QHS PRN neck pain #90 caps 02/05/24 Unknown Rx Allergy/AdvReac Type Severity Reaction Status Date / Time niacin (From Nias[place] Allergy Extreme Verified 04/03/24 10:17 Extended-Release) Itching cyclobenzaprine AdvReac Unknown Heart Verified 04/03/24 10:17 feels like wants to stop Family History Father CAD (coronary artery disease) Diabetes Heart disease Myocardial infarction Hypertension Mother Heart disease Diabetes CVA (cerebral vascular accident) Sister Breast cancer Colon cancer Brother Colon cancer Surgical History History of orthopedic surgery History of facial surgery History of shoulder surgery H/O right knee surgery History of left heart catheterization (11/19/21) History of coronary artery stent placement (05/16/10) Social History household members: spouse housing: house current occupational status: retired Smoking Status: Former smoker how long ago did patient quit smokin alcohol intake: former substance use type: does not use what type of physical activity do you participate in: walking and bicycling frequency: daily seatbelt use: always do you feel safe at home: Yes ROS ROS ED Review of Systems ROS Unobtainable: other Constitutional Constitutional ED: Reports lethargy; Denies chills, fever(s), sweats or weight loss Eyes Eyes: Denies blurry vision, change in vision or diplopia ENT ENT ED: Denies rhinorrhea or sore throat Cardiovascular Cardiovascular: Denies chest pain, orthopnea or racing heartbeat Respiratory/Chest Respiratory/Chest: Denies cough, dyspnea, dyspnea on exertion, orthopnea or sputum Gastrointestinal Gastrointestinal: Denies abdominal pain, diarrhea, nausea or vomiting Genitourinary Genitourinary ED: Denies dysuria, hematuria or urinary frequency Musculoskeletal Musculoskeletal: Reports other Details: Left leg pain ; Denies arthralgias, back pain, myalgias or neck pain Integumentary Denies abscess, Abrasions or rash Neurologic Neurologic: Denies headache(s) or weakness Psychiatric Psychiatric: Denies anxiety, depression or suicidal thoughts Endocrine Endocrinology: Denies polydipsia, polyphagia or polyuria Hematologic/Lymphatic Hematologic/Lymphatic: Denies easy bleeding, easy bruising or lymphadenopathy Allergic/Immunologic Allergic/Immunologic ED: Denies mouth swelling, tongue swelling or urticaria EXAM Physical Exam Const Vital Signs: 04/03/24 10:15 04/03/24 12:14 Temperature 96.1 F L Temperature Source Temporal Pulse Rate 57 L 78 Respiratory Rate 19 H Blood Pressure 141/80 H 139/81 H Blood Pressure Mean 100 100 Pulse Ox 100 Oxygen Delivery Method Room Air Positive well nourished and well developed General Appearance ED: well developed and NAD HEENT Reports TM's clear and moist mucous membranes normocephalic and atraumatic; Negative for trauma or tenderness Tympanic Membrane ED: Yes TM's clear Eyes PERRL and EOMs intact bilaterally General Eye ED: Negative for pale conjunctiva or scleral icterus Neck no lymphadenopathy, supple and no JVD General: Negative for tenderness Chest Wall inspection of chest normal and palpation of chest normal Chest: Negative for tenderness Resp normal respiratory effort and clear to auscultation bilaterally Effort and Inspection: Negative for respiratory distress or pain with movement Auscultation: Negative for rhonchi, wheezes or diminished lung sounds Cardio regular rate, regular rhythm, S1 normal heart sound, S2 normal heart sound and no murmurs Peripheral Pulses: pulses 2+ throughout GI normal to inspection, nondistended, normoactive bowel sounds, soft to palpation, non-tender, non-distended and no masses Back/Spine no CVA tenderness and no thoracic nor lumbar tenderness Extremity Extremity Narrative: Left leg with +1 edema below the knee. No ropes or cords palpated. He does have a positive Homans' sign on the left. Neurovascularly intact. Normal range of motion. Normal strength General Extremety ED: Negative for edema General Extremity: Negative for edema Neuro oriented x3, CN's II-XII intact bilaterally, no sensory deficits noted and gait normal Sensorium / Orientation: awake, alert, oriented to person, oriented to place and oriented to time Motor Exam: strength 5/5 throughout and strength abnormal Psych mental status grossly normal Skin no rashes or lesions noted and no wounds MDM MDM MDM Narrative Medical decision making narrative: Patient presents with left leg pain with history of DVT concerned about DVT. Patient had a venous Doppler of the left lower extremity as well as the right lower extremity and there was no evidence of DVT. This point etiology of pain unclear however its atraumatic suspect likely soft tissue. He is not having any difficulty ambulating. Recommended he use ibuprofen for discomfort. Advised to follow-up with his primary care physician within next 5 to 7 days. Lab Data Attestation: I reviewed the patient's lab results. Discharge Plan Triage Chief Complaint: Lower Extremity Injury ED Provider: Lisa Fernandez Dx/Rx/DC Orders Clinical Impression: Leg pain, left Instructions: ED Myalgias, ED Pain, Acute, Uncertain Cause Prescriptions: No Action omega-3 fatty acids 1,000 mg capsule 1,000 mg PO DAILY aspirin 81 mg tablet,chewable 81 mg PO DAILY Qty: 90 3RF nitroglycerin [Nitrostat] 0.4 mg tablet, sublingual 0.4 mg sublingual Q5-15M PRN (Reason: chest pain) Qty: 25 3RF Rx Instructions: do not exceed 3 doses per episode atorvastatin 80 mg tablet See Rx Instructions .ROUTE .COMPLEX Qty: 90 3RF Dose Instruction: TAKE 1 TABLET BY MOUTH EVERYDAY AT BEDTIME Rx Instructions: TAKE 1 TABLET BY MOUTH EVERYDAY AT BEDTIME lisinopril 10 mg tablet 10 mg PO BID Qty: 180 1RF Rx Instructions: 10 mg PO daily; metoprolol tartrate 50 mg tablet 50 mg PO BID Qty: 180 3RF magnesium 200 mg tablet 200 mg PO QDAY dexamethasone 6 mg tablet 6 mg PO DAILY Qty: 5 0RF benzonatate 200 mg capsule 200 mg PO TID PRN (Reason: cough) Qty: 20 0RF multivitamin with folic acid 1 TABLET tablet 1 tab PO DAILY Patient Comments: Vitamins coenzyme [id number] 1 EACH capsule 1 ea PO DAILY Patient Comments: Supplement for cholestrol clopidogrel 75 mg tablet See Rx Instructions .ROUTE .COMPLEX Qty: 90 3RF Dose Instruction: TAKE 1 TABLET BY MOUTH EVERY DAY Rx Instructions: TAKE 1 TABLET BY MOUTH EVERY DAY amlodipine 2.5 mg tablet 2.5 mg PO DAILY Qty: 90 1RF pregabalin 50 mg capsule 50 mg PO QHS PRN (Reason: neck pain) Qty: 90 0RF Primary Care Provider: Azam Haynes Referrals: Azam Haynes, [Primary Care Provider] - 5-7 Days Print Language: Singaporean Disposition Disposition: Home, Self Care
[2024-04-03 12:14] VITALS: BP 139/81; PULSE 78
[2024-04-03 13:28] VITALS: BP 139/81; PULSE 78; RESP 16; TEMP 36.6; O2SAT 99
== END 2024-04-03 13:30 | disposition home or self-care (01) ==
PROVIDERS: Emergency Provider Emergency Medicine; PCP Family Medicine; Visit Provider Emergency Medicine
DX: M79.605 Pain in left leg (principal); I25.10 Atherosclerotic heart disease of native coronary artery without angina pectoris; Z86.718 Personal history of other venous thrombosis and embolism; I10 Essential (primary) hypertension; Z87.891 Personal history of nicotine dependence; Z95.5 Presence of coronary angioplasty implant and graft; G47.33 Obstructive sleep apnea (adult) (pediatric); E78.5 Hyperlipidemia, unspecified; Z80.0 Family history of malignant neoplasm of digestive organs
CPT/HCPCS: 93971; 99282

== ENCOUNTER → 2024-07-05 | Outpatient (CLI) | payer MEDICARE, OTHER, SELFPAY ==
[2024-07-05 11:26] LABS: AST(SGOT) 43 U/L (<=37); Alanine Aminotransfer ALT/SGPT 44 U/L (<=46); Albumin, Serum 4.1 g/dL (3.4-4.8); Alkaline Phosphatase 105 U/L (40-129); Bilirubin, Direct 0.51 mg/dL (0.00-0.30); Cholesterol 123 mg/dL (<=200); Globulin 2.4 g/dL (2.2-4.2); High Density Lipoprotein 47 mg/dL; Low Density Lipoprotein Calc. 62 mg/dL; Protein, Total 6.5 g/dL (5.9-8.4); Total Bilirubin 1.38 mg/dL (0.00-1.30); Triglycerides 73 mg/dL; Very Low Density Lipoprotein 15 mg/dL (5-40); cholesterol:hdl ratio screen 2.65
== END | disposition home or self-care (01) ==
LOC: LAB 10:29
PROVIDERS: PCP Family Medicine; Referring Provider Physician Assistant Medical; Visit Provider Physician Assistant Medical
DX: E78.00 Pure hypercholesterolemia, unspecified (principal)
CPT/HCPCS: 36415; 80061; 80076

== ENCOUNTER → 2024-07-21 | Outpatient (CLI) | payer MEDICARE, OTHER, SELFPAY ==
--- NOTE | 2024-07-21 16:14 | RAD_ITS ---
PROCEDURE: KNEE 4 OR MORE VIEWS (RADKN), 07/21/2024 REASON FOR EXAM: PAIN TECHNIQUE: AP, lateral, AP tunnel, and sunrise views of the LEFT knee were obtained COMPARISON: None FINDINGS: Fracture/dislocation: None visible. Joint space(s): Preserved. Soft tissues: Joint effusion. Foreign bodies: None visible. Bone mineralization: Demineralization. Other: None. RAD/Knee 4 or More Views IMPRESSION: Demineralization without visible acute displaced fracture, however with a joint effusion. If there is persistent concern for occult nondisplaced fracture or other internal derangement, recommend CT/MRI, a s indicated. Reading Location: [id number]
== END | disposition home or self-care (01) ==
PROVIDERS: PCP Family Medicine; Referring Provider Family Medicine; Visit Provider Family Medicine
DX: M25.562 Pain in left knee (principal)
CPT/HCPCS: 73564

== ENCOUNTER → 2024-08-04 | Outpatient (CLI) | payer MEDICARE, OTHER, SELFPAY ==
--- NOTE | 2024-08-04 12:39 | ECHOD_ITS ---
Reason For Study Reason For Study: Mitral Valve Prolapse Procedure This was a 2D Doppler, Color Flow transthoracic echocardiogram. Exam performed in department. Left Ventricle Normal LV size. Left ventricular systolic function is normal. The left ventricular ejection fraction is 55 %. Stage 1 diastolic dysfunction. No regional wall motion abnormalities noted. Right Ventricle Normal RV size. Normal systolic function. Atria Normal left atrium. Normal right atrium. Hypermobile atrial septum. Mitral Valve Mild mitral valve prolapse, anterior leaflet. Mild-Moderate (1-2+) eccentric mitral valve insufficiency. Tricuspid Valve Normal tricuspid valve. Mild (1+) tricuspid valve insufficiency. Pulmonary artery systolic pressure is 36 mmHg. Aortic Valve Trisinus/trileaflet aortic valve. Pulmonic Valve Normal pulmonic valve. Great Vessels Normal aortic root. The pulmonary artery is normal size. Inferior vena cava collapse with respiration. Pericardium/Pleural No pericardial effusion. MMode/2D Measurements & Calculations LVIDd: 4.6 cm IVSd: 0.96 cm Ao root diam: 3.3 cm LVIDs: 2.9 cm LVPWd: 0.98 cm RVDd: 3.4 cm FS: 37.0 % LAV(MOD-bp): 44.2 ml LA A4 area: 14.5 cm2 LA dimension(2D): 3.5 cm LAV(MOD-bp) Indexed: 21.9 ml/m2 LAV(MOD-sp2): 46.2 ml LAV(MOD-sp4): 31.5 ml RA A4 area: 15.8 cm2 Time Measurements MV dec time: 0.31 sec Doppler Measurements & Calculations MV E max terry: 53.3 cm/sec Lat Peak E' Terry: 9.0 cm/sec Med Peak E' Terry: 5.9 cm/sec MV A max terry: 67.4 cm/sec E/E' lat: 5.9 E/E' med: 9.0 MV E/A: 0.79 MV V2 max: 68.2 cm/sec MV P1/2t max teryr: 53.3 cm/sec Ao V2 max: 88.0 cm/sec MV max P.9 mmHg MV P1/2t: 90.0 msec Ao max P.1 mmHg MV V2 mean: 32.0 cm/sec MV dec slope: 173.4 cm/sec2 Ao V2 mean: 56.8 cm/sec MV mean P.50 mmHg Ao mean P.5 mmHg MV V2 VTI: 23.8 cm MVA(P1/2t): 2.4 cm2 Ao V2 VTI: 16.3 cm AV (velocity ratio): 1.1 LV V1 max: 88.6 cm/sec MR max terry: 639.5 cm/sec TR max terry: 285.7 cm/sec LV V1 max P.2 mmHg MR max P.8 mmHg TR max P.6 mmHg LV V1 mean P.6 mmHg LV V1 mean: 58.6 cm/sec LV V1 VTI: 17.2 cm ECHO/Echo Complete Interpretation Summary Hypermobile atrial septum. Normal LV size. Left ventricular systolic function is normal. The left ventricular ejection fraction is 55 %. Mild mitral valve prolapse, anterior leaflet Mild-Moderate (1-2+) eccentric mitral valve insufficiency. Stage 1 diastolic dysfunction. Pulmonary artery systolic pressure is 36 mmHg. Ordering Physician: Carmen Garcia Referring Physician: Carmen Garcia Performed By: Kun Shepherd RCS
== END | disposition home or self-care (01) ==
LOC: CVS 12:34
PROVIDERS: PCP Family Medicine; Referring Provider Physician Assistant Medical; Visit Provider Physician Assistant Medical
DX: I34.1 Nonrheumatic mitral (valve) prolapse (principal)
CPT/HCPCS: 93306

== ENCOUNTER → 2024-11-06 | Outpatient (CLI) | payer MEDICARE, OTHER, SELFPAY ==
[2024-11-06 10:57] LABS: AST(SGOT) 41 U/L (<=37); Alanine Aminotransfer ALT/SGPT 45 U/L (<=46); Albumin, Serum 4.3 g/dL (3.4-4.8); Alkaline Phosphatase 89 U/L (40-129); Bilirubin, Direct 0.35 mg/dL (0.00-0.30); Cholesterol 130 mg/dL (<=200); Globulin 2.3 g/dL (2.2-4.2); Low Density Lipoprotein Calc. 74 mg/dL; Triglycerides 72 mg/dL; Very Low Density Lipoprotein 14 mg/dL (5-40); cholesterol:hdl ratio screen 3.14
== END | disposition home or self-care (01) ==
LOC: LAB 09:53
PROVIDERS: PCP Family Medicine; Referring Provider Physician Assistant Medical; Visit Provider Physician Assistant Medical
DX: E78.00 Pure hypercholesterolemia, unspecified (principal)
CPT/HCPCS: 36415; 80061; 80076

== ENCOUNTER → 2024-12-31 | Outpatient (CLI) | payer MEDICARE, OTHER, SELFPAY ==
[2024-12-31 16:14] LABS: PSA,Total- Diagnostic 3.10 ng/mL (0.00-4.00)
== END | disposition home or self-care (01) ==
LOC: LAB 13:01
PROVIDERS: PCP Family Medicine; Referring Provider Urology; Visit Provider Urology
DX: N41.0 Acute prostatitis (principal)
CPT/HCPCS: 36415; 84153

== ENCOUNTER → 2025-01-11 | Outpatient (CLI) | payer MEDICARE, OTHER, SELFPAY ==
--- OUTSIDE RECORDS SUMMARY | 2025-01-11 09:28 | XMS RPT_ITS | CCD ---
Author Organization [facility] Care Team Providers Care Reimbursement Director Name Role Phone Michel Tomas Y Unavailable Unavailable Ericka Santos Joel Unavailable Phillip Mcclure Unavailable Unavailable MD Amara, Adam Brewer Unavailable EDY Patel, Rosanne Orr Unavailable UnavailGauri Gómez Unavailable Abel Dixon Unavailable Unavailable Gauri Vila Primary Care Provider Juliana SNOW, Carmen Mejia Unavailable [phone] Michel Tomas Unavailable Unavailable Phillip Mcclure Unavailable Unavailable Tristen Livingston DO Unavailable Gauri Vila Primary Care Provider Gauri Vila DO Primary Care Provider Dr. Gauri Vila Primary Care Provider [phone] Dr. Gauri Vila Attending Provider Dr. Gauri Vila Referring Provider Dr. Gauri Vila Other Provider Dr. Alexx Roca Attending Provider Radha CAST, PA Carmen Orr Attending Provider Dr. Gauri Vila Primary Care Provider Dr. Gauri Vila Referring Provider Dr. Gauri Vila Attending Provider SEGUN Alvarado Attending Provider Unavailab Dr. Gauri Villalta Primary Care Provider Dr. Gauri Vila Referring Provider SEGUN Tariq Attending Provider SEGUN Chang Attending Provider [phone] Chuy Hughes Attending Provider Dr. Gauri Vila Primary Care Provider [phone] Dr. Gauri Vila Attending Provider Dr. Gauri Vila Referring Provider SEGUN Clark Attending Provider Dr. Gauri Vila Primary Care Provider Dr. Gauri Vila Attending Provider [phone] Gauri Vila Referring Provider SEGUN Chang Attending Provider SGEUN Clark Attending Provider Dr. Gauri Vila Primary Care Provider Dr. Gauri Vila Referring Provider Dr. Gauri Vila Attending Provider Dr. Cam Bucio Attending Provider Dr. Adam Maloney Attending Provider Gauri Vila DO Primary Care Provider Dr. Gauri Vila Primary Care Provider Dr. Gauri Vila Referring Provider SEGUN Chang Attending Provider Dr. Gauri Vila Attending Provider [phone] SEGUN Clark Attending Provider Dr. Cam Bucio Attending Provider Dr. Adam Maloney Attending Provider BIB FRANZ Attending Unavailable GAURI VILA Primary Care Unavailable BIB FRANZ Attending Unavailable GAURI VILA Primary Care Unavailable Gauri Vila DO Primary Care Provider ROSARIO DAVIS Primary Care Unavailable Dallas GORMAN, Dr. Gauri Villa Primary Care Provider Jim GORMAN, Dr. Gonzalez Attending Provider Jim GORMAN, Dr. Gonzalez Emergency Provider Nella BARRETO, Dr. Drake Linares Attending Provider Jim GORMAN, Dr. Gonzalez Referring Provider Dallas GORMAN, Dr. Gauri Villa Attending Provider [phone] Dallas GORMAN, Dr. Gauri Villa Referring Provider [phone] Carmen Tariq Attending Provider [phone] Carmen Tariq Referring Provider [phone] Dr. Gauri Vila DO Primary Care Provider [phone] Dallas GORMAN, Dr. Gauri Villa Referring Provider [phone] Dallas GORMAN, Dr. Gauri Villa Attending Provider [phone] Amara BARRETO, Dr. Medina Attending Provider Ewdar Person MD Attending Provider Dr. Gauri Vila DO Primary Care Provider [phone] Dr. Gauri Vila DO Referring Provider [phone] Carmen Tariq Attending Provider [phone] Carmen Tariq Referring Provider [phone] Dr. Gauri Vila DO Primary Care Provider Dr. Gauri Vila DO Referring Provider [phone] Carmen Tariq Attending Provider [phone] Carmen Tariq Referring Provider [phone] Tish BARRETO, Dr. Spenser Elliott Attending Provider Tish BARRETO, Dr. Spenser Elliott Referring Provider Gauri Vila Attending Unavailable Gauri Vila Referring Unavailable Gauri Vila Primary Care Unavailable Gauri Vila Primary Care Unavailable Brown, Gauri R Referring Unavailable Edwar Person Attending Unavailable Brown, Gauri R Primary Care Unavailable Brown, Gauri R Referring Unavailable Carmen Garcia Attending Unavailabl e Brown, Gauri R Referring Unavailable Edwar Person Attending Unavailable Brown, Gauri R Primary Care Unavailable Brown, Gauri R Referring Unavailable Brown, Gauri R Primary Care Unavailable Edwar Person Attending Unavailable Brown, Gauri R Primary Care Unavailable Brown, Gauri R Referring Unavailable Edwar Person Attending Unavailable Brown, Gauri R Primary Care Unavailable Brown, Gauri R Referring Unavailable Carmen Garcia Attending Unavailabl e Brown, Gauri R Primary Care Unavailable Brown, Gauri R Referring Unavailable Omi Clark Attending Unavailable Brown, Gauri R Attending Unavailable Brown, Gauri R Primary Care Unavailable Brown, Gauri R Referring Unavailable Adam Maloney Attending Unavailable Brown, Gauri R Primary Care Unavailable Brown, Gauri R Primary Care Unavailable Carmen Garcia Referring Unavailabl e Carmen Garcia Attending Unavailabl e Brown, Gauri R Attending Unavailable Brown, Gauri R Primary Care Unavailable Brown, Gauri R Referring Unavailable Brown, Gauri R Attending Unavailable Brown, Gauri R Referring Unavailable Brown, Gauri R Primary Care Unavailable Brown, Gauri R Primary Care Unavailable Carmen Garcia Attending Unavailabl Carmen Ortiz Referring Unavailabl e Brown, Gauri R Primary Care Unavailable Carmen Garcia Attending UnavailCarmen Centeno Referring Unavailabl e Brown, Gauri R Attending Unavailable Brown, Gauri R Referring Unavailable Brown, Gauri R Primary Care Unavailable Brown, Gauri R Primary Care Unavailable Lisa Fernandez Attending Unavailable Brown, Gauri R Primary Care Unavailable Carmen Garcia Referring Unavailabl Carmen Ortiz Attending Unavailabl e Brown, Gauri R Primary Care Unavailable Spenser Winston Referring Unavailable Spenser Winston Attending Unavailable Allergies Allergy Classification Reported Allergen(s) Allergy Type Date of Onset Reaction(s) Facility Niacin (2 sources) Niacin Drug Allergy 04-15-20 16 Itching [facility] (8 sources) niacin drug allergy 12-23-19 13 itching [facility] Work Phone: (20 sources) niacin; Translations: [NIACIN] Propensity to adverse reactions to drug 04-15-20 16 Itching [facility] Work Phone: (1 source) Niacin Drug Allergy 06-27-19 15 causes extreme itching and flushing [facility] Work Phone: (20 sources) cyclobenzaprine Drug Allergy 08-15-19 22 Heart feels like wants to stop [facility] Comment on above: Generic only, can ta ke Name Brand (1 source) cyclobenzaprine Drug Allergy 11-11-19 [facility] (1 source) Niacin Drug Allergy 11-11-19 [facility] Medications Current Medications Medication Drug Class(es) Dates Sig (Normalized) Sig (Original) aspirin 81 mg chewable tablet (20 sources) Nonsteroidal Anti-inflammatory Drug Start: 03-25-2013 End: 08-15-2020 take 1 tablet by mouth once daily Aspirin 81 mg tablet,chewable Active 81 mg PO DAILY 90 August 15, 2020 3:47pm Start: 01-02-2012 take 1 tablet by devan th once daily ASPIRIN 81 MG TABS One tablet by mouth daily ASPIRIN [id number] Pasha Herrmann MD Start: 01-02-2012 take 1 tablet by devan th once daily ASPIRIN 81 MG TABS One tablet by mouth daily ASPIRIN [id number] Pasha Herrmann MD Start: 01-02-2012 ASPIRIN 81 81 MG TBEC 1 tablet once daily ASPIRIN [id number] Kassidy Will Start: 10-18-2010 take 1 tablet by devan th once daily ECOTRIN 325 MG TBEC One tablet by mouth daily ASPIRIN [id number] Luz Elena Nelson Start: 10-18-2010 take 1 tablet by devan th once daily ECOTRIN 325 MG TBEC One tablet by mouth daily ASPIRIN [id number] Luz Elena Nelson fish oil (1 source) take 1 capsule by mo [facility] once daily fish oil-omega-3 fatty acids 300-1,000 mg capsule Take 2 g by mouth daily. Active fish oil-omega-3 fatty acids 300-1,000 mg capsule (6 sources) take 2 capsules by m outh once daily fish oil-omega-3 fatty acids 300-1,000 mg capsule Take 2 (two) capsules by mouth daily . 0 Active take 1 capsule by mouth once sourav ly fish oil-omega-3 fatty acids 300-1,000 mg capsule Take 2 g by mouth daily. 0 Active levOCARNitine 20 mg / ubidecarenone 100 mg oral capsule (20 sources) Carnitine Analog Start: 03-25-2013 take 1 capsule by mouth once daily Coenzyme [id number]-[id number] 1 EACH capsule Active 1 NMA PO DAILY March 25, 2013 1:00am Start: 03-25-2013 Coenzyme Q10-L -Carnitine Active 1 EACH PO DAILY March 25, 2013 1:00am lisinopril 10 mg oral tablet (20 sources) Angiotensin Converting Enzyme Inhibitor Start: 06-02-2024 take 1 tablet by mouth twice daily Lisinopril 10 mg tablet Active 10 mg PO TWICE A DAY 180 June 02, 2024 5:56pm Start: 01-24-2022 End: 06-02-2024 take 1 tablet by mouth once daily Lisinopril 10 mg tablet Discontinued 10 mg PO TWICE A DAY 180 June 02, 2024 5:37pm June 02, 2024 5:57pm 10 mg PO daily; Start: 01-22-2022 End: 01-24-2022 take 10 mg by mouth once daily Lisinopril 20 mg tablet Discontinued 20 mg PO DAILY January 22, 2022 4:03pm January 24, 2022 8:11am 10 mg PO daily; Start: 01-22-2022 End: 01-22-2022 take 10 mg by mouth once daily Lisinopril Discontinued 10 MG PO DAILY January 22, 2022 3:59pm January 22, 2022 4:04pm 10 mg PO daily; Start: 08-15-2020 End: 01-22-2022 take 1 tablet by mouth once daily Lisinopril 10 mg tablet Discontinued 10 mg PO DAILY October 03, 2021 3:21pm January 22, 2022 4:00pm 10 mg PO daily; Start: 07-04-2020 End: 07-04-2020 take 2 tablets by mouth once daily Lisinopril 5 MG tablet Discontinued 10 mg PO DAILY 60 0 July 04, 2020 1:00am July 04, 2020 4:32pm Start: 07-04-2020 End: 08-15-2020 take 1 tablet by mouth once daily Lisinopril Discontinued 0 .ROUTE .COMPLEX 90 July 04, 2020 4:32pm August 15, 2020 3:47pm TAKE 1 TABLET BY MOUTH EVERY DAY Start: 10-18-2010 End: 08-23-2020 take 1 tablet by mouth once daily Lisinopril 5 mg tablet Discontinued 0 .ROUTE .COMPLEX 90 July 04, 2020 4:32pm August 15, 2020 3:47pm TAKE 1 TABLET BY MOUTH EVERY DAY Magnesium (9 sources) Start: 01-13-2024 take 1 tablet by mouth once daily Magnesium 200 mg tablet Active 200 mg PO daily January 13, 2024 12:00am multivitamin capsule (7 sources) take 1 capsule by mouth once daily multivitamin capsule take 1 capsule by oral route every day 0 Active take 1 capsule by mouth once sourav ly multivitamin capsule take 1 capsule by oral route every day Active Multivitamin With Folic Acid (13 sources) Start: 03-25-2013 take 1 tablet by mouth once daily Multivitamin With Folic Acid Active 1 TABLET PO DAILY March 25, 2013 1:57pm Start: 03-25-2013 take 1 tablet by devan th once daily Multivitamin With Folic Acid Active 1 TABLET PO DAILY March 25, 2013 12:00am Start: 03-25-2013 take 1 tablet by devan th once daily Multivitamin With Folic Acid Active 1 TABLET PO DAILY March 25, 2013 1:00am Multivitamin With Folic Acid 1 TABLET tablet (9 sources) Start: 03-25-2013 take 1 tablet by mouth once daily Multivitamin With Folic Acid 1 TABLET tablet Active 1 {tbl} PO DAILY March 25, 2013 1:00am nitroglycerin 0.4 mg sublingual tablet (20 sources) Nitrate Vasodilator Start: 08-14-2021 End: 07-04-2023 Nitroglycerin (Nitrostat) 0.4 mg tablet, sublingual Active 0.4 mg SL every 5 to 15 minutes as needed for chest pain 27 07July 04, 2023 2:48pm do not exceed 3 doses per episode Start: 08-14-2021 End: 07-04-2023 Nitroglycerin (Nitrostat) 0. 4 mg tablet, sublingual Active 0.4 MG SL every 5 to 15 minutes July 04, 2023 2:48pm do not exceed 3 doses per episode Start: 03-25-2013 End: 03-29-2018 Nitroglycerin 0.4 MG tablet Discontinued 0.4 mg SL Q5M as needed for Chest Pain March 25, 2013 1:00am March 29, 2018 2:55pm Start: 10-18-2010 NITROGLYCERIN 0.4 MG/HR PT24 1 tablet under tongue every 5 min up to 3 X NITROGLYCERIN [id number] Stephen Grant BLACK TOPPER Pioneer-3 Fatty Acids (13 sources) Start: 08-20-2018 take 1000 mg by mout h once daily Pioneer-3 Fatty Acids Active 1000 MG PO DAILY August 20, 2018 3:49pm Start: 08-20-2018 take 1000 mg by mouth once sourav ly Pioneer-3 Fatty Acids Active 1000 MG PO DAILY August 19, 2018 11:00pm Start: 08-20-2018 take 1000 mg by mouth once sourav ly Pioneer-3 Fatty Acids Active 1000 MG PO DAILY August 20, 2018 12:00am Pioneer-3 Fatty Acids 1,000 mg capsule (9 sources) Start: 08-20-2018 take 1 capsule by mouth once daily Pioneer-3 Fatty Acids 1,000 mg capsule Active 1000 mg PO DAILY August 20, 2018 12:00am Completed/Discontinued Medications Medication Drug Class(es) Dates Sig (Normalized) Sig (Original) acetaminophen 325 mg / HYDROcodone bitartrate 5 mg oral tablet (20 sources) Opioid Agonist Start: 10-17-2021 End: 10-24-2021 Hydrocodone-Acetami nophen 5-325 mg tablet Discontinued 1 {tbl} PO EVERY 6 HOURS as needed for pain 12 3 0 October 17, 2021 October 24, 2021 1:01pm Back pain due to injury Dorsalgia, unspecified Start: 10-17-2021 End: 10-24-2021 take 1 tablet by mouth every six hours Hydrocodone-Acetaminophen Discontinued 1 TABLET PO EVERY 6 HOURS 12 3 October 17, 2021 October 24, 2021 1:01pm amLODIPine 2.5 mg oral tablet (20 sources) Dihydropyridine Calcium Channel Giovanni Start: 07-29-2023 End: 10-18-2024 take 1 tablet by mouth once daily Amlodipine 2.5 mg tablet Discontinued 2.5 mg PO DAILY 90 0 July 26, 2024 12:26pm October 18, 2024 2:27pm amoxicillin 875 mg / clavulanate 125 mg oral tablet (13 sources) Penicillin-class Antibacterial Start: 04-24-2023 End: 04-24-2023 Amoxicillin-Pot Clavulanate 875-125 mg tablet Discontinued 1 {tbl} PO Q12H 20 10 April 24, 2023 1:00am May 03, 2023 1:00am April 24, 2023 3:00pm Acute sinusitis, unspecified Start: 04-24-2023 End: 04-24-2023 take 1 tablet by mouth every twelve hours Amoxicillin-Pot Clavulanate Discontinued 1 TABLET PO Q12H 20 April 24, 2023 1:00am April 24, 2023 3:00pm atorvastatin 80 mg oral tablet (20 sources) HMG-CoA Reductase Inhibitor Start: 10-18-2010 End: 07-26-2024 take 1 tablet by mouth once daily at bedtime Atorvastatin 80 mg tablet Discontinued 0 .ROUTE .COMPLEX 90 3 October 16, 2022 11:52am July 04, 2023 2:49pm TAKE 1 TABLET BY MOUTH EVERYDAY AT BEDTIME azithromycin 250 mg oral tablet (20 sources) Macrolide Antimicrobial Start: 05-01-2020 End: 06-05-2020 take 2-5 tablets by mouth once daily Azithromycin 250 mg tablet Discontinued 0 PO .COMPLEX 6 0 May 01, 2020 1:00am June 05, 2020 9:50am take 500 mg today (day 1), then 250 mg for 4 days (days 2-5) PO benzonatate 200 mg oral capsule (20 sources) Non-narcotic Antitussive Start: 01-13-2024 End: 07-21-2024 take 1 capsule by mouth three times daily as needed for cough Benzonatate 200 mg capsule Discontinued 200 mg PO THREE TIMES A DAY as needed for cough 20 0 January 13, 2024 12:00am July 21, 2024 3:27pm Start: 05-07-2023 End: 07-04-2023 take 1 capsule by mouth three times daily Benzonatate 100 mg capsule Discontinued 100 mg PO THREE TIMES A DAY 30 May 07, 2023 1:00am July 04, 2023 2:45pm Start: 04-24-2023 End: 05-07-2023 take 2 capsules by mouth three times daily as needed for cough Benzonatate 100 mg capsule Discontinued 200 mg PO THREE TIMES A DAY as needed for cough 30 April 24, 2023 1:00am May 07, 2023 12:24pm Start: 04-24-2023 End: 05-07-2023 take 200 mg by mouth three times daily Benzonatate Discontinued 200 MG PO THREE TIMES A DAY April 24, 2023 1:00am May 07, 2023 12:24pm cholecalciferol 400 unt oral tablet (20 sources) Vitamin D Start: 03-18-2019 VITAMIN D3 TAB LET 1 tablet once daily CHOLECALCIFEROL TABS [id number] Kassidy Will Start: 08-20-2018 End: 08-14-2021 Cholecalciferol (Vitamin D3) 2,000 unit capsule Discontinued 3000 U PO DAILY August 20, 2018 12:00am August 14, 2021 1:25pm Start: 08-20-2018 End: 08-14-2021 take 3000 [IU] by mouth once daily Cholecalciferol (Vitamin D3) Discontinued 3000 UNIT PO DAILY August 20, 2018 12:00am August 14, 2021 1:25pm clopidogrel 75 mg oral tablet (20 sources) P2Y12 Platelet Inhibitor Start: 10-18-2010 End: 09-22-2024 take 1 tablet by mouth once daily Clopidogrel 75 mg tablet Discontinued 0 .ROUTE .COMPLEX 90 June 24, 2023 10:14am September 22, 2024 12:12pm TAKE 1 TABLET BY MOUTH EVERY DAY coenzyme q10 100 mg oral capsule (15 sources) Start: 12-22-2012 take 1 tablet by mouth once daily CO-ENZYME Q-10 100 MG CAPS One tablet by mouth daily COENZYME Q10 [id number] Rosanne Patel RN COENZYME Q10 (1 source) Start: 06-27-2014 CO Q 10 100 MG CAPS 1 capsule daily COENZYME Q10 [id number] Kary Warren Lashae colchicine 0.6 mg oral tablet (20 sources) Start: 03-01-2015 End: 10-24-2015 take 1 tablet by mouth twice daily COLCHICINE 0.6 MG TABS One tablet by mouth twice daily COLCHICINE [id number] Rosanne M Kilner, RN cyclobenzaprine hydrochloride 7.5 mg oral tablet (20 sources) Muscle Relaxant Start: 05-20-2018 End: 06-04-2018 take 1 tablet by mouth three times daily as needed for pain Cyclobenzaprine 7.5 mg tablet Discontinued 7.5 mg PO THREE TIMES A DAY 30 0 May 20, 2018 1:00am June 04, 2018 11:04am Dorsalgia, unspecified as needed for back pain dexamethasone 6 mg oral tablet (9 sources) Corticosteroid Start: 01-13-2024 End: 04-14-2024 take 1 tablet by mouth once daily Dexamethasone 6 mg tablet Discontinued 6 mg PO DAILY 5 0 January 13, 2024 12:00am April 14, 2024 5:36pm diazePAM 5 mg oral tablet (20 sources) Benzodiazepine Start: 07-08-2019 End: 06-05-2020 take 1 tablet by mouth twice daily as needed for muscle spasms Diazepam 5 mg tablet Discontinued 5 mg PO TWICE A DAY as needed for muscle spasm 20 July 08, 2019 1:00am June 05, 2020 9:50am fexofenadine hydrochloride 180 mg oral tablet (8 sources) Histamine-1 Receptor Antagonist Start: 07-21-2024 End: 09-01-2024 take 1 tablet by mouth every twenty-four hours Fexofenadine (Tereza Hives) 180 mg tablet Discontinued 180 mg PO Q24H 30 July 21, 2024 12:00am September 01, 2024 11:09am finasteride 5 mg oral tablet (11 sources) 5-alpha Reductase Inhibitor Start: 04-21-2015 End: 11-08-2016 take 1 tablet by mouth once daily FINASTERIDE 5 MG TABS One tablet by mouth daily FINASTERIDE [id number] Adam Maloney MD fluticasone propionate 0.05 mg/actuat metered dose nasal spray (20 sources) Corticosteroid Start: 10-14-2019 End: 03-08-2020 Fluticasone Propionate 50 mcg/actuation spray,suspension Discontinued 1 NMA INTRANASAL TWICE A DAY 18.2 October 14, 2019 12:00am March 08, 2020 9:40am administer into each nostril Start: 10-14-2019 End: 03-08-2020 take 1 spray(s) nasal route twice daily Fluticasone Propionate Discontinued 1 SPRAY INTRANASAL TWICE A DAY 18.2 October 14, 2019 12:00am March 08, 2020 9:40am administer into each nostril hydrOXYzine hydrochloride 25 mg oral tablet (15 sources) Antihistamine Start: 04-10-2022 End: 05-27-2022 take 1 tablet by mouth three times daily as needed Hydroxyzine Hcl 25 mg tablet Discontinued 25 mg PO THREE TIMES A DAY as needed for itching 30 April 10, 2022 1:00am May 27, 2022 4:12pm krill oil (20 sources) Start: 05-06-2017 End: 03-29-2018 Mxazg-Ki-7-Dha-Epa- Phospho-Ast (Krill Oil) 1,043-560-39-50 mg capsule Discontinued 1 CAP PO daily May 06, 2017 4:51pm March 29, 2018 2:55pm Start: 05-06-2017 End: 03-29-2018 take 1 capsule by mouth once daily Zazuv-Gu-9-Miu-Bxj-Pbxmckx-Ast (Krill Oi l) 1,313-487-15-50 mg capsule Discontinued 1 NMA PO daily May 06, 2017 1:00am March 29, 2018 2:55pm Start: 05-06-2017 End: 03-29-2018 Miwmj-Xp-5-Ggk-Jkn-Losjgfg-A st (Krill Oil) 1,464-373-12-50 mg capsule Discontinued 1 CAP PO daily May 06, 2017 12:00am March 29, 2018 1:55pm Start: 05-06-2017 End: 03-29-2018 Zuvhy-Gw-1-Sec-Ggj-Uwimbzg-A st (Krill Oil) 1,672-393-65-50 mg capsule Discontinued 1 CAP PO daily May 06, 2017 1:00am March 29, 2018 2:55pm Start: 04-21-2015 take 1 tablet by devan once daily KRILL OIL 1000 MG CAPS One tablet by devan th daily KRILL OIL [id number] Adam Maloney MD meloxicam 15 mg oral tablet (20 sources) Nonsteroidal Anti-inflammatory Drug Start: 05-06-2017 End: 05-07-2017 Meloxicam 15 mg tablet Discontinued PO 15 0 May 06, 2017 1:00am May 07, 2017 2:27pm Start: 05-06-2017 End: 05-07-2017 Meloxicam Discontinued PO May 06, 2017 1:00am May 07, 2017 2:27pm Start: 11-08-2016 take 1 tablet by devan th once daily MELOXICAM 15 MG TABS One tablet by mouth daily MELOXICAM [id number] Stephen Mayuri Juanita BLACK TOPPER metaxalone 800 mg oral tablet (20 sources) Start: 10-24-2021 End: 11-13-2021 take 1 tablet by mouth three times daily as needed for pain Metaxalone 800 mg tablet Discontinued 800 mg PO THREE TIMES A DAY as needed for Back pain 60 October 24, 2021 1:25pm November 13, 2021 2:04pm Dorsalgia, unspecified Start: 06-04-2018 End: 03-08-2020 take 1 tablet by mouth three times daily as needed for pain Metaxalone (Skelaxin) 800 mg tablet Discontinued 800 mg PO THREE TIMES A DAY as needed for Back pain 60 June 25, 2019 2:32pm March 08, 2020 9:40am Dorsalgia, unspecified methylPREDNISolone 4 mg oral tablet (20 sources) Corticosteroid Start: 05-12-2023 End: 07-04-2023 take 1 tablet by mouth once Methylprednisolone (Medrol (Andrew)) 4 mg tablets,dose pack Discontinued 0 PO per package directions May 12, 2023 1:00am July 04, 2023 2:45pm PO PER PKG DIR Start: 04-24-2023 End: 04-24-2023 take 1 tablet by mouth once Methylprednisolone (Medrol (Andrew)) 4 mg tablets,dose pack Discontinued 4 mg PO per package directions 21 6 April 24, 2023 1:00am April 29, 2023 1:00am April 24, 2023 3:00pm Start: 11-15-2019 End: 11-15-2019 Depo-Medrol (methylprednisol one acetate) 40 mg/mL suspension for injection Discontinued 40 MG INTRAARTIC ONCE November 15, 2019 12:55pm November 15, 2019 1:41pm metoprolol tartrate 50 mg oral tablet (20 sources) beta-Adrenergic Giovanni Start: 10-18-2010 End: 07-26-2024 take 1 tablet by mouth twice daily Metoprolol Tartrate 50 mg tablet Discontinued 50 mg PO TWICE A DAY 180 October 16, 2022 11:53am July 04, 2023 2:49pm montelukast 10 mg oral tablet (20 sources) Leukotriene Receptor Antagonist Start: 04-24-2023 End: 05-07-2023 take 1 tablet by mouth once daily in the evening Montelukast 10 mg tablet Discontinued 10 mg PO EVERY EVENING April 24, 2023 1:00am April 24, 2023 3:00pm MULTIPLE VITAMIN (5 sources) Start: 12-22-2012 take 1 tablet by mouth once daily MULTIVITAMINS TABS One tablet by mouth daily MULTIPLE VITAMIN [id number] Rosanne Patel RN MULTIPLE VITAMIN (3 sources) Start: 12-22-2012 take 1 tablet by mouth once daily MULTIVITAMINS TABS One tablet by mouth daily MULTIPLE VITAMIN [id number] Rosanne Patel RN MULTIPLE VITAMIN (1 source) Start: 06-27-2014 ONE-A-DAY ESSENTIAL TABS 1 tablet daily MULTIPLE VITAMIN [id number] Kary Bhardwaj niacin 500 mg oral tablet (17 sources) Nicotinic Acid Start: 10-18-2010 End: 02-11-2012 take 1 tablet by mouth at bedtime NIASPAN 500 MG CR-TABS One tablet by mouth at bedtime. NIACIN (ANTIHYPERLIPIDEMI C) [id number] Pasha Herrmann MD Start: 10-18-2010 End: 02-11-2012 take 1 tablet by mouth at bedtime NIASPAN 500 MG CR-TABS One tablet by mouth at bedtime. NIACIN (ANTIHYPERLIPIDEMIC) [id number] Jessica Madden RN take 1 tablet by devan th once daily niacin sustained release (NIASPAN) 500 mg ORAL tablet Take 500 mg by mouth once daily. Active Nirmatrelvir-Ritonavir (Paxlovid) 300 mg (150 mg x 2)-100 mg tablets,dose pack (9 sources) Start: 01-14-2024 End: 02-04-2024 Nirmatrelvir-Ritonavir (Paxlovid) 300 mg (150 mg x 2)-100 mg tablets,dose pack Discontinued 0 PO .COMPLEX 30 January 14, 2024 12:00am February 04, 2024 3:50pm take TWO 150 mg tablets of nirmatrelvir with ONE 100 mg tablet of ritonavir twice daily for 5 days PO Start: 01-14-2024 End: 02-04-2024 Nirmatrelvir-Ritonavir (Paxl ovid) 300 mg (150 mg x 2)-100 mg tablets,dose pack Discontinued 0 PO .COMPLEX January 14, 2024 12:00am February 04, 2024 3:50pm take TWO 150 mg tablets of nirmatrelvir with ONE 100 mg tablet of ritonavir twice daily for 5 days PO OMEGA-3 FATTY ACIDS CAPS (1 source) Start: 03-18-2019 FISH OIL CAPSU LE 1 capsule once daily OMEGA-3 FATTY ACIDS CAPS [id number] Kassidy Will permethrin 50 mg/ml topical cream (15 sources) Pyrethroid Start: 04-08-2022 End: 05-27-2022 Permethrin (Elimite) 5 % cream Discontinued 1 NMA TOPICAL ONCE 60 April 08, 2022 1:00am May 27, 2022 4:12pm apply 2nd half 10 days after first treatment Start: 04-08-2022 End: 05-27-2022 Permethrin (Elimite) 5 % cre am Discontinued 1 APPLIC TOPICAL ONCE 60 April 08, 2022 1:00am May 27, 2022 4:12pm apply 2nd half 10 days after first treatment predniSONE 20 mg oral tablet (20 sources) Corticosteroid Start: 04-14-2024 End: 07-21-2024 Prednisone 20 mg tablet Discontinued 20 mg PO .COMPLEX 12 April 14, 2024 1:00am July 21, 2024 3:28pm 20 mg orally twice daily x 3 days, once daily for three days, then every other day Start: 04-08-2022 End: 05-27-2022 take 1 tablet by mouth twice daily Prednisone 10 mg tablet Discontinued 10 mg PO TWICE A DAY 10 April 08, 2022 1:00am May 27, 2022 4:12pm Start: 10-24-2015 End: 11-08-2016 take 1 tablet by mouth once daily PREDNISONE 5 MG TABS One tablet by mouth daily PREDNISONE [id number] Adam Maloney MD pregabalin 50 mg oral capsule (20 sources) Start: 10-10-2021 End: 02-05-2024 take 1 capsule by mouth at bedtime as needed Pregabalin 50 mg capsule Discontinued 50 mg PO AT BEDTIME as needed for Neuropathy 30 0 July 26, 2022 9:59am May 07, 2023 12:24pm Start: 07-19-2020 End: 08-14-2021 take 1 capsule by mouth at bedtime Pregabalin (Lyrica) 50 mg capsule Discontinued 50 mg PO AT BEDTIME 30 August 23, 2020 3:01pm August 14, 2021 1:25pm tiZANidine 4 mg oral tablet (16 sources) Central alpha-2 Adrenergic Agonist Start: 10-18-2010 End: 06-13-2011 TIZANIDINE HCL 4 MG TABS As needed TIZANIDINE HCL [id number] Pasha Herrmann MD traMADol hydrochloride 50 mg oral tablet (16 sources) Opioid Agonist Start: 10-18-2010 End: 06-13-2011 TRAMADOL HCL 50 MG TABS As needed TRAMADOL HCL [id number] Pasha Herrmann MD 24 hr verapamil hydrochloride 120 mg extended release oral capsule (20 sources) Calcium Channel Giovanni Start: 05-06-2017 End: 07-17-2017 take 1 capsule by mouth once daily Verapamil 120 mg capsule,ext rel. pellets 24 hr Discontinued 120 mg PO daily May 06, 2017 1:00am July 17, 2017 11:31am Start: 11-08-2016 VERAPAMIL HCL ER 120 MG CR-TABS One tablet by mouth VERAPAMIL HCL [id number] Stephen Grant NP Start: 03-15-2016 End: 08-23-2020 take 1 tablet by mouth once daily verapamil (CALAN) 120 MG tablet Take 120 mg by mouth daily. 6 03/15/2016 08/23/2020 Discontinued (Therapy completed) Problems Active Problems Problem Classification Problem Date Documented Da te Episodic/Chronic Abdominal pain (14 sources) Abdominal pain; Translations: [Unspecified abdominal pain] 09-28-2022 Episodic Acute bronchitis (20 sources) Acute bronchitis; Translations: [Acute bronchitis, unspecified] 08-15-2020 Episodic Allergic reactions (15 sources) Contact dermatitis; Translations: [Allergic contact dermatitis due to animal (cat) (dog) dander] 04-16-2022 Episodic Coronary atherosclerosis and other heart disease (20 sources) Coronary arteriosclerosis; Translations: [Coronary atherosclerosis] Onset: 1 10-18-2010 Chronic Coronary atherosclerosis and other heart disease (12 sources) Coronary angioplasty status; Translations: [Presence of coronary angioplasty implant and graft] Onset: 1 10-18-2010 Episodic Disorders of lipid metabolism (20 sources) Hyperlipidemia; Translations: [Hyperlipidemia, unspecified] Onset: 1 10-18-2010 Chronic E Codes: Fall (20 sources) Fall on same level from slipping, tripping or stumbling ; Translations: [Fall on same level from slipping, tripping and stumbling without subsequent striking against object, initial encounter] 10-25-2021 Episodic Essential hypertension (20 sources) Labile hypertension; Translations: [Hypertensive disorder] Onset: 4 10-14-2013 Chronic Genitourinary symptoms and ill-defined conditions (14 sources) Increased frequency of urination; Translations: [Frequency of micturition] 09-28-2022 Episodic Heart valve disorders (20 sources) Mitral valve prolapse; Translations: [Nonrheumatic mitral (valve) prolapse] Onset: 1 10-18-2010 Chronic Inflammatory conditions of male genital organs (1 source) Acute prostatitis; Translations: [Acute prostatitis] Onset: Episodic Malaise and fatigue (20 sources) Fatigue; Translations: [Other fatigue] 08-15-2020 Episodic Nonspecific chest pain (20 sources) Chest pain, unspecified; Translations: [Precordial pain] Onset: 1 10-18-2010 Episodic Open wounds of extremities (20 sources) Laceration of left index finger; Translations: [Laceration without foreign body of left index finger without damage to nail, initial encounter] 11-09-2019 Episodic Osteoarthritis (20 sources) Osteoarthritis of joint of right shoulder region; Translations: [Primary osteoarthritis, right shoulder] Onset: 5 05-30-2023 Chronic Other connective tissue disease (20 sources) Muscle spasm of cervical muscle of neck; Translations: [Other muscle spasm] 08-20-2018 Episodic Other connective tissue disease (12 sources) Inflammation of rotator cuff tendon; Translations: [Other shoulder lesions, unspecified shoulder] 05-30-2023 Episodic Other connective tissue disease (3 sources) Other shoulder lesions, unspecified shoulder; Translations: [Disorders of bursae and tendons in shoulder region, unspecified] 05-30-2023 Episodic Other connective tissue disease (10 sources) Pain in left lower limb; Translations: [Pain in left leg] 04-03-2024 Episodic Other ear and sense organ disorders (20 sources) Lesion of external ear; Translations: [Disorder of right external ear, unspecified] 12-10-2021 Episodic Comment on above: I recommend to him a shave biopsy with gentle cautery ablation with subsequent tissue analysis. YouI recommend shave biopsy of the smaller area with subsequent cauterization and tissue analysis. Other ear and sense organ disorders (6 sources) Disorder of right external ear, unspecified; Translations: [Unspecified disorder of external ear] Episodic Other ear and sense organ disorders (4 sources) Disorder of left external ear, unspecified; Translations: [Unspecified disorder of external ear] Episodic Other gastrointestinal disorders (20 sources) Slow transit constipation; Translations: [Slow transit constipation] 11-19-2021 Episodic Other gastrointestinal disorders (3 sources) Slow transit constipation; Translations: [Slow transit constipation] Episodic Other infections; including parasitic (15 sources) Infestation by Sarcoptes scabiei maribel hominis; Translations: [Scabies] 04-08-2022 Episodic Other infections; including parasitic (2 sources) Scabies; Translations: [Scabies] Episodic Other inflammatory condition of skin (15 sources) Itching of skin; Translations: [Pruritus, unspecified] 07-21-2024 Episodic Other injuries and conditions due to external causes (4 sources) Unspecified injury of muscle(s) and tendon(s) of the rotator cuff of unspecified shoulder, initial encounter; Translations: [Shoulder and upper arm injury] Episodic Other nervous system disorders (10 sources) Carpal tunnel syndrome; Translations: [Carpal tunnel syndrome, right upper limb] 07-03-2021 Chronic Other nervous system disorders (13 sources) Carpal tunnel syndrome, right upper limb; Translations: [Carpal tunnel syndrome] Onset: Chronic Other nervous system disorders (20 sources) Carpal tunnel syndrome of right wrist; Translations: [Carpal tunnel syndrome, right upper limb] 07-03-2021 Chronic Other skin disorders (20 sources) Seborrheic keratosis; Translations: [Other seborrheic keratosis] 08-15-2020 Episodic Other skin disorders (9 sources) Actinic keratosis; Translations: [Actinic keratosis] 09-30-2023 Episodic Other upper respiratory infections (17 sources) Acute upper respiratory infection; Translations: [Acute upper respiratory infection, unspecified] 04-24-2023 Episodic Phlebitis; thrombophlebitis and thromboembolism (1 source) H/O: Deep vein thrombosis; Translations: [Personal history of other venous thrombosis and embolism] 04-03-2024 Episodic Residual codes; unclassified (20 sources) Family history of cancer of colon; Translations: [Family history of malignant neoplasm of digestive organs] 11-19-2021 Episodic Residual codes; unclassified (3 sources) Family history of malignant neoplasm of digestive organs; Translations: [Family history of malignant neoplasm of gastrointestinal tract] Episodic Spondylosis; intervertebral disc disorders; other back problems (20 sources) Herniation of nucleus pulposus; Translations: [Degeneration of cervical intervertebral disc] Onset: 9 03-25-2019 Chronic Spondylosis; intervertebral disc disorders; other back problems (20 sources) Spinal stenosis in cervical region; Translations: [Backache] Onset: 9 03-25-2019 Episodic Sprains and strains (20 sources) Shoulder strain; Translations: [Strain of unspecified muscle, fascia and tendon at shoulder and upper arm level, right arm, initial encounter] 05-12-2023 Episodic Thyroid disorders (17 sources) Non-toxic multinodular goiter; Translations: [Nontoxic multinodular goiter] Onset: 1 04-16-2016 Chronic Unclassified (1 source) Unknown / UNK(Unknown) Onset: 8 Unclassified (3 sources) Long-term drug therapy; Translations: [Other prison (current) drug therapy] Onset: 1 12-04-2010 Unclassified (16 sources) Carpal tunnel syndrome of right wrist; Translations: [G56.01 - Carpal tunnel syndrome, right upper limb] Unclassified (1 source) Cough, unspecified; Translations: [Cough, unspecified] Onset: Past or Other Problems Problem Classification Problem Date Documented Da te Episodic/Chronic Crushing injury or internal injury (8 sources) Injury to other specified blood vessels of lower extremity; Translations: [Injury to other specified blood vessels of lower extremity] Onset: 10-18-2010 10-18-2010 Episodic Immunizations and screening for infectious disease (1 source) Encounter for immunization; Translations: [Encounter for immunization] Onset: 02-04-2024 Episodic Other aftercare (5 sources) Other prison (current) drug therapy; Translations: [Other prison (current) drug therapy] Onset: 12-04-2010 12-04-2010 Episodic Other connective tissue disease (1 source) Pain in left leg; Translations: [Pain in left leg] Onset: 05-04-2024 Episodic Other non-traumatic joint disorders (20 sources) Pain in left knee; Translations: [Left knee pain] Onset: 09-01-2024 07-21-2024 Episodic Residual codes; unclassified (3 sources) Family history of ischemic heart disease and other diseases of the circulatory system; Translations: [Family history of ischemic heart disease and other diseases of the circulatory system] 10-14-2013 Episodic Unclassified (20 sources) Body Mass Index between 19-24, adult; Translations: [Family history of ischemic heart disease and other diseases of the circulatory system] Onset: 10-06-2014 Resolved: 04-17-2015 10-06-2014 Episodic Unclassified (1 source) GANGLION/GIANT CELL TUMOR RIGHT MIDDLE FINGER Onset: 04-24-2018 Unclassified (1 source) Problem Unclassified (1 source) Thyroid Problem Onset: 07-15-2023 Results Test Name Value Interpretation Reference Range Facility PSA,Total- Diagnosticon 12-04 PSA, DIAGNOSTIC 3.10 ng/mL Normal 0.00-4.00 [facility] Comment on above: Result Comment: This test was performed using the [place] Accountable tPSA method. Measured values of a patient??sample can vary depending on the testing procedure used. PSA values determined on patient samples by different testing procedures cannot be used interchangeably. If there is a change in PSA assays while monitoring therapy, sequential testing should be performed to confirm baseline values. Performed By: #### L 501.9940 #### [facility] [address] [place], [address] Cardiology Visit Reporton Cardiology Visit Report [facility] [address] [place] [address] OFFICE VISIT Date of Service: 11/10/24 MR#: [id number] Acct: [id number] Name: ARTURO CORONADO Rep #: [id number] : 1945 Provider: SEGUN Burton Age/Sex: 79/M Location: [facility] Status: Signed HPI HPI History of Present Illness Details: Arturo Coronado is a 79 year old gentleman with a history of coronary artery disease status post angioplasty and stenting of the left anterior descending artery, and diagonal vessel. He also has a history of hypertension and hyperlipidemia and obstructive sleep apnea. His last catheterization was in 2013 demonstrated no significant obstructive coronary disease. He had a repeat heart catheterization from November 2021 which demonstrated nonobstructive coronary artery disease with previously placed stent to his LAD patent. He does continue to have chest pain that radiates around to his back. It is on the right. He does not feel that this is cardiac. It can last hours. He does not need to use any NTG. He feels that this is the same as what he has been having for years. His Bp at home has been stable. Activity torres, he chopped woos for a few months without issues. He did not have any chest pain with this. 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 Accompanied by: Self Is patient in pain?: No Allergies niacin (From Niaspan Extended-Release) Allergy (Verified 11/10/24 14:59) Extreme Itching cyclobenzaprine Adverse Reaction (Unknown, Verified 11/10/24 14:59) Heart feels like wants to stop Medications ???Medication ???Instructions ???Recorded ???Confirmed ???Type coenzyme U60-G-nzyvnqfoa 100 mg-20 1 ea PO DAILY 03/25/13 11/10/24 History mg capsule multivitamin with folic acid 400 1 tab PO DAILY 03/25/13 11/10/24 H istory mcg tablet omega-3 fatty acids 1,000 mg 1,000 mg PO DAILY 08/20/18 5 History capsule aspirin 81 mg chewable tablet 81 mg PO DAILY #90 tabs 08/15/20 0 11/10/24 Rx nitroglycerin 0.4 mg sublingual 0.4 mg sublingual Q5-15M PRN chest 07/04/23 11/10/24 Rx tablet (Nitrostat) pain #25 tabs magnesium 200 mg tablet 200 mg PO QDAY 01/13/24 11/10/24 H istory pregabalin 50 mg capsule 50 mg PO QHS PRN neck pain #90 cap s 02/05/24 11/10/24 Rx lisinopril 10 mg tablet 10 mg PO BID #180 tabs 06/02/24 Rx atorvastatin 80 mg tablet See Rx Instructions .Route 5 11/10/24 Rx .COMPLEX #90 tabs metoprolol tartrate 50 mg tablet 50 mg PO BID #180 tabs 07/26/24 Rx clopidogrel 75 mg tablet See Rx Instructions .Route 5 11/10/24 Rx .COMPLEX #90 tabs amlodipine 2.5 mg tablet 2.5 mg PO DAILY #90 tabs 10/18/24 11/10/24 Rx Ejection fraction %: 55 Have you fallen in the past year?: Yes (slipped on ice in driveway) [facility] Medical History Osteoarthritis of left knee Right shoulder strain Scabies Thyroid goiter Back pain due to injury Family history of colon cancer Seborrheic keratoses Cervical disc disease Cervical cord compression with myelopathy Painful neck Swallowing problem Chronic back pain Nonrheumatic mitral (valve) prolapse Essential (primary) hypertension Back pain Obstructive sleep apnea GERD (gastroesophageal reflux disease) Atherosclerosis of coronary artery of [place] heart without angina pectoris Hyperlipidemia Surgical History History of orthopedic surgery History of facial surgery History of shoulder surgery H/O right knee surgery History of left heart catheterization (11/19/21) History of coronary artery stent placement (05/16/10) Family History Father CAD (coronary artery disease) Diabetes Heart disease Myocardial infarction Hypertension Mother Heart disease Diabetes CVA (cerebral vascular accident) Sister Breast cancer Colon cancer Brother Colon cancer Social History household members: spouse housing: house current occupational status: retired Smoking Status: Former smoker how long ago did patient quit smokin alcohol intake: former substance use type: does not use what type of physical activity do you participate in: walking and bicycling frequency: daily seatbelt use: always do you feel safe at home: Yes ROS Const Const: Negative for fatigue or weakness Eyes Eyes: (more content not included)... Normal [facility] Orthopedic Visit Reporton Orthopedic Visit Report [facility] [address] [place] [address] OFFICE VISIT Date of Service: 11/08/24 MR#: [id number] Acct: [id number] Name: ARTURO CORONADO Rep #: [id number] : 1945 Provider: Dr. Edwar rojas MD Age/Sex: 79/M Location: [facility] Status: Signed Intake Vital Signs 10/12/24 14:20 10/25/24 13:37 Height 5 ft 11 in 5 ft 11 in Weight: 175 lb BMI 24.4 Intake Visit Reasons: LEFT KNEE Chief Complaint: 3rd Euflexxa left knee injection Is patient in pain?: Yes Allergies niacin (From Niaspan Extended-Release) Allergy (Verified 11/08/24 13:42) Extreme Itching cyclobenzaprine Adverse Reaction (Unknown, Verified 11/08/24 13:42) Heart feels like wants to stop Medications ???Medication ???Instructions ???Recorded ???Confirmed ???Type coenzyme K24-I-jwwpdufnr 100 mg-20 1 ea PO DAILY 03/25/13 11/08/24 History mg capsule multivitamin with folic acid 400 1 tab PO DAILY 03/25/13 11/08/24 H istory mcg tablet omega-3 fatty acids 1,000 mg 1,000 mg PO DAILY 08/20/18 5 History capsule aspirin 81 mg chewable tablet 81 mg PO DAILY #90 tabs 08/15/20 0 11/08/24 Rx nitroglycerin 0.4 mg sublingual 0.4 mg sublingual Q5-15M PRN chest 07/04/23 11/08/24 Rx tablet (Nitrostat) pain #25 tabs magnesium 200 mg tablet 200 mg PO QDAY 01/13/24 11/08/24 H istory pregabalin 50 mg capsule 50 mg PO QHS PRN neck pain #90 cap s 02/05/24 11/08/24 Rx lisinopril 10 mg tablet 10 mg PO BID #180 tabs 06/02/24 Rx atorvastatin 80 mg tablet See Rx Instructions .Route 5 11/08/24 Rx .COMPLEX #90 tabs metoprolol tartrate 50 mg tablet 50 mg PO BID #180 tabs 07/26/24 Rx clopidogrel 75 mg tablet See Rx Instructions .Route 5 11/08/24 Rx .COMPLEX #90 tabs amlodipine 2.5 mg tablet 2.5 mg PO DAILY #90 tabs 10/18/24 11/08/24 Rx Have you fallen in the past year?: Yes [facility] Medical History Osteoarthritis of left knee Right shoulder strain Scabies Thyroid goiter Back pain due to injury Family history of colon cancer Seborrheic keratoses Cervical disc disease Cervical cord compression with myelopathy Painful neck Swallowing problem Chronic back pain Nonrheumatic mitral (valve) prolapse Essential (primary) hypertension Back pain Obstructive sleep apnea GERD (gastroesophageal reflux disease) Atherosclerosis of coronary artery of [place] heart without angina pectoris Hyperlipidemia Surgical History History of orthopedic surgery History of facial surgery History of shoulder surgery H/O right knee surgery History of left heart catheterization (11/19/21) History of coronary artery stent placement (05/16/10) Family History Father CAD (coronary artery disease) Diabetes Heart disease Myocardial infarction Hypertension Mother Heart disease Diabetes CVA (cerebral vascular accident) Sister Breast cancer Colon cancer Brother Colon cancer Social History household members: spouse housing: house current occupational status: retired Smoking Status: Former smoker how long ago did patient quit smokin alcohol intake: former substance use type: does not use what type of physical activity do you participate in: walking and bicycling frequency: daily seatbelt use: always do you feel safe at home: Yes HPI LEFT KNEE Details: This documentation accurately reflects the service provided and the decisions made by me, Dr. Edwar Person MD 11/08/24 [id number]. Part of today???s visit was documented by [ ], acting as scribe. ARTURO CORONADO is a 79 year old M here today for L knee OA, euflexxa 07/05. He had some bleeding last time he is on a blood thinner. Minimal relief so far Office Procedures Euflexxa Procedure Details:: Obtained consent for injection. Under sterile conditions, injected the patients left knee with 2mL Euflexxa. The patient tolerated the injection well without any noted complication. Patient should call our office if redness develops, pain worsens or if they have any concerns. Is this Buy Bill?: Yes Office Meds Euflexxa 10 mg/mL (mw 2.4-3.6 million) intra-articular syringe Performing Provider: Edwar Person MD Performing Location: [facility] Administered by: Edwar Person MD on 11/08/24 13:41 Dose Route Admin Location Dispensed Lot Number Expiration Date [place] Man ufacturer 10 mg intra-articular left knee 2 mL [id number] 03/08/25 [address]-3 [employer] Coding Level of Care Code Attention Jeffrey Diagnoses Osteoarthritis of left knee M17.12 (more content not included)... Normal [facility] Bilirubin directOrdered By: Carmen Garcia on 11-06-2024 Bilirubin.direct [Mass/Vol] 0.35 mg/dL High 0.00-0.30 [facility] Bilirubin, totalOrdered By: Carmen Garcia on 11-06-2024 Bilirubin [Mass/Vol] 0.94 mg/dL 0.00-1.30 [facility] Calculated very low density lipoprotein (VLDL) cholesterol measurementOrdered By: Carmen Garcia on 11-06-2024 Calculated very low density lipoprotein (VLDL) cholesterol measurement 14 mg/dL 5-40 [facility] LDL calc ser/plasOrdered By: Carmen Garcia on 11-06-2024 Cholesterol in LDL [Mass/Vol] 74 mg/dL [facility] Comment on above: Gskurqrgoz=241-415 m g/dL & Higher Wuzh=306 mg/dL or greater Laboratory - Chemistry and C hemistry - challengeOrdered By: Carmen Garcia on 11-06-2024 AST [Catalytic activity/Vol] 41 U/L High <38 [facility] Lipid Profileon 11-06-2024 CHOL:HDL 3.14 Normal [facility] Comment on above: Performed By: #### L 500.4100, L500.3400 ####[facility] [id number] [facility] [address] [place], [place], [id number] Cholesterol [Mass/Vol] 130 mg/dL Normal <=200 [facility] Comment on above: Result Comment: Chol esterol level, Desirable <200 mg/dL Borderline high cholesterol 200-239 mg/dL High cholesterol >=240 mg/dL Recommendations of the NCEP Adult Treatment Panel for the following risk-cutoff thresholds for the [place] population. Performed By: #### L 500.4100, L500.3400 ####[facility] [id number] [facility] [address] [place], [place], [id number] Cholesterol in HDL [Mass/Vol] 41 mg/dL Normal [facility] Comment on above: Result Comment: Alejandra onal Cholesterol Education Program (NCEP) guidelines: <40 mg/dL: Low HDL-cholesterol (major risk factor for CHD) >= 60 mg/dL: High HDL-cholesterol (negative risk factor for CHD) HDL-cholesterol is affected by a number of factors, e.g. smoking, exercise, hormones, sex and age. Performed By: #### L 500.4100, L500.3400 ####[facility] [address] [place], [address] Cholesterol in LDL [Mass/Vol] 74 mg/dL Normal [facility] Comment on above: Result Comment: Bord rsjdzc=556-126 mg/dL Higher Znbr=876 mg/dL or greater Performed By: #### L 500.4100, L500.3400 ####[facility] [address] [place], [address] Cholesterol in VLDL [Mass/Vol] 14 mg/dL Normal 5-40 [facility] Comment on above: Performed By: #### L 500.4100, L500.3400 ####[facility] [address] [place], [address] Triglyceride [Mass/Vol] 72 mg/dL Normal [facility] Comment on above: Result Comment: The drugs N-Acetylcysteine and Metamizole may falsely depress this assay. Normal range: <150 mg/dL Borderline High: 150-199 mg/dL High: 200-499 mg/dL Very High: >500 mg/dL Performed By: #### L 500.4100, L500.3400 ####[facility] [address] [place], [address] Liver Profileon 11-06-2024 Albumin [Mass/Vol] 4.3 g/dL Normal 3.4-4.8 [facility] Comment on above: Performed By: #### L 500.4100, L500.3400 #### [facility] [address] [place], [address] ALK PHOS 89 U/L Normal 40-129 [facility] Comment on above: Performed By: #### L 500.4100, L500.3400 #### [facility] [address] [place], [address] ALT [Catalytic activity/Vol] 45 U/L Normal <=46 [facility] Comment on above: Performed By: #### L 500.4100, L500.3400 #### [facility] [address] [place], [address] AST [Catalytic activity/Vol] 41 U/L High <=37 [facility] Comment on above: Performed By: #### L 500.4100, L500.3400 #### [facility] [address] [place], [address] Bilirubin [Mass/Vol] 0.94 mg/dL Normal 0.00-1.30 [facility] Comment on above: Performed By: #### L 500.4100, L500.3400 #### [facility] [address] [place], [address] Bilirubin.direct [Mass/Vol] 0.35 mg/dL High 0.00-0.30 [facility] Comment on above: Performed By: #### L 500.4100, L500.3400 #### [facility] [address] [place], [address] Globulin (S) [Mass/Vol] 2.3 g/dL Normal 2.2-4.2 [facility] Comment on above: Performed By: #### L 500.4100, L500.3400 #### [facility] [address] [place], [address] T PROT 6.6 g/dL Normal 5.9-8.4 [facility] Comment on above: Performed By: #### L 500.4100, L500.3400 #### [facility] [address] [place], [address] Screening total cholesterol/ high density lipoprotein (HDL) cholesterol ratioOrdered By: Carmen Garcia on 11-06-2024 Cholesterol.total/Cris sterol in HDL [Mass ratio] 3.14 {ratio} [facility] Serum globulin measurementOr dered By: Carmen Garcia on 11-06-2024 Globulin (S) [Mass/Vol] 2.3 g/dL 2.2-4.2 [facility] Serum or plasma alanine tyler otransferase (ALT) measurementOrdered By: Carmen Garcia on 11-06-2024 ALT [Catalytic activity/Vol] 45 U/L <47 [facility] Serum or plasma albumin phillip urement (mass/volume)Ordered By: Carmen Garcia on 11-06-2024 Albumin [Mass/Vol] 4.3 g/dL 3.4-4.8 [facility] Serum or plasma alkaline mera sphatase measurementOrdered By: Carmen Garcia on 11-06-2024 ALP [Catalytic activity/Vol] 89 U/L 40-129 [facility] Serum or plasma cholesterol in HDL measurement (mass/volume)Ordered By: Carmen Garcia on 11-06-2024 Cholesterol in HDL [Mass/Vol] 41 mg/dL >40 [facility] Comment on above: National Cholesterol Education Program (NCEP) guidelines:<40 mg/dL: Low HDL-cholesterol (major risk factor for CHD)>= 60 mg/dL: High HDL-cholesterol (negative risk factor for CHD)HDL-cholesterol is affected by a number of factors, e.g. smoking, exercise, hormones, sex and age. Serum or plasma cholesterol measurement (mass/volume)Ordered By: Carmen Garcia on 11-06-2024 Cholesterol [Mass/Vol] 130 mg/dL <201 [facility] Comment on above: Cholesterol level, D esirable <200 mg/dLBorderline high cholesterol 200-239 mg/dLHigh cholesterol >=240 mg/dLRecommendations of the NCEP Adult Treatment Panel for the following risk-cutoff thresholds for the [place] population. Total proteinOrdered By: Venancio Garcia on 11-06-2024 Protein [Mass/Vol] 6.6 g/dL 5.9-8.4 [facility] Triglycerides measurementOrd ered By: Carmen Garcia on 11-06-2024 Triglyceride [Mass/Vol] 72 mg/dL <199 [facility] Comment on above: The drugs N-Acetylcy steine and Metamizole may falsely depress this assay. Normal range: <150 mg/dLBorderline High: 150-199 mg/dLHigh: 200-499 mg/dLVery High: >500 mg/dL Orthopedic Visit Reporton Orthopedic Visit Report [facility] [address] [place] [address] [address] [place] [address] OFFICE VISIT Date of Service: 11/01/24 MR#: [id number] Acct: [id number] Name: ARTURO CORONADO Rep #: [id number] : 1945 Provider: Dr. Edwar rojas MD Age/Sex: 79/M Location: [facility] Status: Signed Intake Vital Signs 10/12/24 14:20 10/25/24 13:37 Height 5 ft 11 in 5 ft 11 in Weight: 176 lb 6 oz 175 lb BMI 24.5 24.4 Intake Visit Reasons: LEFT KNEE Chief Complaint: 2nd Euflexxa left knee injection Accompanied by: Self Is patient in pain?: Yes Pain scale (1-10): 2 Allergies niacin (From Niaspan Extended-Release) Allergy (Verified 11/01/24 13:47) Extreme Itching cyclobenzaprine Adverse Reaction (Unknown, Verified 11/01/24 13:47) Heart feels like wants to stop Medications ???Medication ???Instructions ???Recorded ???Confirmed ???Type coenzyme D77-I-rxvivasig 100 mg-20 1 ea PO DAILY 03/25/13 11/01/24 History mg capsule multivitamin with folic acid 400 1 tab PO DAILY 03/25/13 11/01/24 H istory mcg tablet omega-3 fatty acids 1,000 mg 1,000 mg PO DAILY 08/20/18 5 History capsule aspirin 81 mg chewable tablet 81 mg PO DAILY #90 tabs 08/15/20 0 11/01/24 Rx nitroglycerin 0.4 mg sublingual 0.4 mg sublingual Q5-15M PRN chest 07/04/23 11/01/24 Rx tablet (Nitrostat) pain #25 tabs magnesium 200 mg tablet 200 mg PO QDAY 01/13/24 11/01/24 H istory pregabalin 50 mg capsule 50 mg PO QHS PRN neck pain #90 cap s 10/03/24 06/30/25 Rx lisinopril 10 mg tablet 10 mg PO BID #180 tabs 06/02/24 Rx atorvastatin 80 mg tablet See Rx Instructions .Route 5 11/01/24 Rx .COMPLEX #90 tabs metoprolol tartrate 50 mg tablet 50 mg PO BID #180 tabs 07/26/24 Rx clopidogrel 75 mg tablet See Rx Instructions .Route 5 11/01/24 Rx .COMPLEX #90 tabs amlodipine 2.5 mg tablet 2.5 mg PO DAILY #90 tabs 10/18/24 11/01/24 Rx Have you fallen in the past year?: Yes PFSH Medical History Osteoarthritis of left knee Right shoulder strain Scabies Thyroid goiter Back pain due to injury Family history of colon cancer Seborrheic keratoses Cervical disc disease Cervical cord compression with myelopathy Painful neck Swallowing problem Chronic back pain Nonrheumatic mitral (valve) prolapse Essential (primary) hypertension Back pain Obstructive sleep apnea GERD (gastroesophageal reflux disease) Atherosclerosis of coronary artery of [place] heart without angina pectoris Hyperlipidemia Surgical History History of orthopedic surgery History of facial surgery History of shoulder surgery H/O right knee surgery History of left heart catheterization (11/19/21) History of coronary artery stent placement (05/16/10) Family History Father CAD (coronary artery disease) Diabetes Heart disease Myocardial infarction Hypertension Mother Heart disease Diabetes CVA (cerebral vascular accident) Sister Breast cancer Colon cancer Brother Colon cancer Social History household members: spouse housing: house current occupational status: retired Smoking Status: Former smoker how long ago did patient quit smokin alcohol intake: former substance use type: does not use what type of physical activity do you participate in: walking and bicycling frequency: daily seatbelt use: always do you feel safe at home: Yes HPI LEFT KNEE Details: This documentation accurately reflects the service provided and the decisions made by me, Dr. dEwar Person MD 11/01/24 0927. Part of today???s visit was documented by [ ], acting as scribe. ARTURO CORONADO is a 79 year old M here today for L knee OA, euflexxa 2/3. No relief unfortunately from the first injection but no complications. Office Procedures Euflexxa Procedure Details:: Obtained consent for injection. Under sterile conditions, injected the patients left knee with 2nd Euflexxa injection. The patient tolerated the injection well without any noted complication. Patient should call our office if redness develops, pain worsens or if they have any concerns. Is this Buy Bill?: Yes Office Meds Euflexxa 10 mg/mL (mw 2.4-3.6 million) intra-articular syringe Performing Provider: Edwar Person MD Performing Location: [facility] Administered by: Edwar Person MD on 11/01/24 13:56 Dose Route Admin Location Dispensed Lot Number Expiration Date [facility] Man ufacturer 20 mg intra-articular Left knee 2 mL [id number] 03/08/25 [address]-6 [employer] Coding Level of Care Code Attention Jeffrey (more content not included)... Normal [facility] Orthopedic Visit Reporton Orthopedic Visit Report [facility] [address] [place] [address] OFFICE VISIT Date of Service: 10/25/24 MR#: [id number] Acct: [id number] Name: ARTURO CORONADO Rep #: [id number] : 1945 Provider: Dr. Edwar rojas MD Age/Sex: 79/M Location: [facility] Status: Signed Intake Vital Signs 10/12/24 14:20 10/25/24 13:37 Height 5 ft 11 in 5 ft 11 in Weight: 176 lb 6 oz 175 lb BMI 24.5 24.4 Intake Visit Reasons: LEFT KNEE Chief Complaint: 1st Euflexxa left knee injection Accompanied by: Self Is patient in pain?: Yes Pain scale (1-10): 2 Allergies niacin (From Niaspan Extended-Release) Allergy (Verified 10/25/24 13:41) Extreme Itching cyclobenzaprine Adverse Reaction (Unknown, Verified 10/25/24 13:41) Heart feels like wants to stop Medications ???Medication ???Instructions ???Recorded ???Confirmed ???Type coenzyme P74-L-ojgpfkevs 100 mg-20 1 ea PO DAILY 03/25/13 10/25/24 History mg capsule multivitamin with folic acid 400 1 tab PO DAILY 03/25/13 10/25/24 H istory mcg tablet omega-3 fatty acids 1,000 mg 1,000 mg PO DAILY 08/20/18 5 History capsule aspirin 81 mg chewable tablet 81 mg PO DAILY #90 tabs 08/15/20 0 10/25/24 Rx nitroglycerin 0.4 mg sublingual 0.4 mg sublingual Q5-15M PRN chest 07/04/23 10/25/24 Rx tablet (Nitrostat) pain #25 tabs magnesium 200 mg tablet 200 mg PO QDAY 01/13/24 10/25/24 H istory pregabalin 50 mg capsule 50 mg PO QHS PRN neck pain #90 cap s 02/05/24 10/25/24 Rx lisinopril 10 mg tablet 10 mg PO BID #180 tabs 06/02/24 Rx atorvastatin 80 mg tablet See Rx Instructions .Route 5 10/25/24 Rx .COMPLEX #90 tabs metoprolol tartrate 50 mg tablet 50 mg PO BID #180 tabs 07/26/24 Rx clopidogrel 75 mg tablet See Rx Instructions .Route 5 10/25/24 Rx .COMPLEX #90 tabs amlodipine 2.5 mg tablet 2.5 mg PO DAILY #90 tabs 10/18/24 10/25/24 Rx Have you fallen in the past year?: Yes [facility] Medical History Osteoarthritis of left knee Right shoulder strain Scabies Thyroid goiter Back pain due to injury Family history of colon cancer Seborrheic keratoses Cervical disc disease Cervical cord compression with myelopathy Painful neck Swallowing problem Chronic back pain Nonrheumatic mitral (valve) prolapse Essential (primary) hypertension Back pain Obstructive sleep apnea GERD (gastroesophageal reflux disease) Atherosclerosis of coronary artery of [place] heart without angina pectoris Hyperlipidemia Surgical History History of orthopedic surgery History of facial surgery History of shoulder surgery H/O right knee surgery History of left heart catheterization (11/19/21) History of coronary artery stent placement (05/16/10) Family History Father CAD (coronary artery disease) Diabetes Heart disease Myocardial infarction Hypertension Mother Heart disease Diabetes CVA (cerebral vascular accident) Sister Breast cancer Colon cancer Brother Colon cancer Social History household members: spouse housing: house current occupational status: retired Smoking Status: Former smoker how long ago did patient quit smokin alcohol intake: former substance use type: does not use what type of physical activity do you participate in: walking and bicycling frequency: daily seatbelt use: always do you feel safe at home: Yes HPI LEFT KNEE Details: This documentation accurately reflects the service provided and the decisions made by me, Dr. Edwar Person MD 10/25/24 1003. Part of today???s visit was documented by [ ], acting as scribe. ARTURO CORONADO is a 79 year old M here today for L knee OA, euflexxa 05/07. Office Procedures Euflexxa Procedure Details:: Obtained consent for injection. Under sterile conditions, injected the patients left knee with 20ml Euflexxa injection. The patient tolerated the injection well without any noted complication. Patient should call our office if redness develops, pain worsens or if they have any concerns. Is this Buy Bill?: Yes Office Meds Euflexxa 10 mg/mL (mw 2.4-3.6 million) intra-articular syringe Performing Provider: Edwar Person MD Performing Location: [facility] Administered by: Edwar Person MD on 10/25/24 13:49 Dose Route Admin Location Dispensed Lot Number Expiration Date NDC Man ufacturer 20 mg intra-articular Left knee 2 mL [id number] 03/08/25 [address]-7 [employer] Coding Level of Care Code Attention [employer]er Diagnoses O (more content not included)... Normal [facility] Orthopedic Visit Reporton Orthopedic Visit Report [facility] [address] [place] [address] OFFICE VISIT Date of Service: 10/12/24 MR#: [id number] Acct: [id number] Name: ARTURO CORONADO Rep #: [id number] : 1945 Provider: Dr. Edwar rojas MD Age/Sex: 79/M Location: [facility] Status: Signed Intake Vital Signs 09/01/24 11:08 10/12/24 14:20 Height 5 ft 11 in 5 ft 11 in Weight: 180 lb 176 lb 6 oz BMI 25.1 24.5 BP 118/66 Blood Pressure Location Lt brachial Position Sitting Respiration 18 Pulse 58 L Pulse Source Monitor Temp 98.2 F Temp Source Temporal Pulse Oximetry (%) 96 Oxygen Delivery Method room air Intake Visit Reasons: RIGHT HAND Chief Complaint: Right Hand Pain Accompanied by: Self Is patient in pain?: Yes Pain scale (1-10): 3 Allergies niacin (From Niaspan Extended-Release) Allergy (Verified 10/12/24 14:20) Extreme Itching cyclobenzaprine Adverse Reaction (Unknown, Verified 10/12/24 14:20) Heart feels like wants to stop Medications ???Medication ???Instructions ???Recorded ???Confirmed ???Type coenzyme F89-O-krvyqwkmo 100 mg-20 1 ea PO DAILY 03/25/13 10/12/24 History mg capsule multivitamin with folic acid 400 1 tab PO DAILY 03/25/13 10/12/24 H istory mcg tablet omega-3 fatty acids 1,000 mg 1,000 mg PO DAILY 08/20/18 5 History capsule aspirin 81 mg chewable tablet 81 mg PO DAILY #90 tabs 08/15/20 0 10/12/24 Rx nitroglycerin 0.4 mg sublingual 0.4 mg sublingual Q5-15M PRN chest 07/04/23 10/12/24 Rx tablet (Nitrostat) pain #25 tabs magnesium 200 mg tablet 200 mg PO QDAY 01/13/24 10/12/24 H istory pregabalin 50 mg capsule 50 mg PO QHS PRN neck pain #90 cap s 02/05/24 10/12/24 Rx lisinopril 10 mg tablet 10 mg PO BID #180 tabs 06/02/24 Rx amlodipine 2.5 mg tablet 2.5 mg PO DAILY #90 tabs 07/26/24 10/12/24 Rx atorvastatin 80 mg tablet See Rx Instructions .Route 5 10/12/24 Rx .COMPLEX #90 tabs metoprolol tartrate 50 mg tablet 50 mg PO BID #180 tabs 07/26/24 Rx clopidogrel 75 mg tablet See Rx Instructions .Route 5 10/12/24 Rx .COMPLEX #90 tabs Have you fallen in the past year?: Yes (April 2024) [facility] Medical History (Updated 10/12/24 @ 14:44 by Edwar Person MD) Osteoarthritis of left knee Right shoulder strain Scabies Thyroid goiter Back pain due to injury Family history of colon cancer Seborrheic keratoses Cervical disc disease Cervical cord compression with myelopathy Painful neck Swallowing problem Chronic back pain Nonrheumatic mitral (valve) prolapse Essential (primary) hypertension Back pain Obstructive sleep apnea GERD (gastroesophageal reflux disease) Atherosclerosis of coronary artery of [place] heart without angina pectoris Hyperlipidemia Surgical History History of orthopedic surgery History of facial surgery History of shoulder surgery H/O right knee surgery History of left heart catheterization (11/19/21) History of coronary artery stent placement (05/16/10) Family History Father CAD (coronary artery disease) Diabetes Heart disease Myocardial infarction Hypertension Mother Heart disease Diabetes CVA (cerebral vascular accident) Sister Breast cancer Colon cancer Brother Colon cancer Social History household members: spouse housing: house current occupational status: retired Smoking Status: Former smoker how long ago did patient quit smokin alcohol intake: former substance use type: does not use what type of physical activity do you participate in: walking and bicycling frequency: daily seatbelt use: always do you feel safe at home: Yes HPI RIGHT HAND Details: This documentation accurately reflects the service provided and the decisions made by me, Dr. Edwar Person MD 10/12/24 1010. Part of today???s visit was documented by [ ], acting as scribe. ARTURO CORONADO is a 79 year old M here today for R carpal tunnel syndrome. Had NCS 3 years ago. also had another ncs. This has been going on for 10 years. 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 [id number]. He tried night splinting that was not effective. Tingling and numbness is in the thumb index and middle finger and slightly into the radial border of the fourth digit as well. She no numbness into the fifth digit. He has to flick his hand out. It is worse in the mornings. It feels weak it is getting worse with time. He has not had surgery. Supplemental Info [facility] [address] [place] [address] MR#: (more content not included)... Normal [facility] Office Vis iton 09-01-2024 Internal Medicine Office Visit [facility] [address] [place] [address] OFFICE VISIT Date of Service: 09/01/24 MR#: [id number] Acct: [id number] Name: ARTURO CORONADO René Rep #: [id number] : 1945 Provider: Dr. Gauri samson, DO Age/Sex: 79/M Location: [facility] Status: Signed Intake Vital Signs 07/21/24 15:27 09/01/24 11:08 Height 5 ft 11 in 5 ft 11 in Weight: 176 lb 180 lb BMI 24.5 25.1 BP 142/78 H 118/66 Blood Pressure Location Lt brachial Lt brachial Position Sitting Sitting Respiration 18 18 Pulse 67 58 L Pulse Source Monitor Monitor Temp 98.2 F 98.2 F Temp Source Temporal Temporal Pulse Oximetry (%) 97 96 Oxygen Delivery Method room air room air Intake Visit Reasons: LEFT KNEE INJECTION Chief Complaint: LEFT KNEE INJECTION Is patient in pain?: Yes (5 in left knee ) Allergies niacin (From Niaspan Extended-Release) Allergy (Verified 07/21/24 15:26) Extreme Itching cyclobenzaprine Adverse Reaction (Unknown, Verified 07/21/24 15:26) Heart feels like wants to stop Medications ???Medication ???Instructions ???Recorded ???Confirmed ???Type coenzyme H87-F-zeroqomsb 100 mg-20 1 ea PO DAILY 03/25/13 09/01/24 History mg capsule multivitamin with folic acid 400 1 tab PO DAILY 03/25/13 09/01/24 H istory mcg tablet omega-3 fatty acids 1,000 mg 1,000 mg PO DAILY 08/20/18 5 History capsule aspirin 81 mg chewable tablet 81 mg PO DAILY #90 tabs 08/15/20 0 09/01/24 Rx clopidogrel 75 mg tablet See Rx Instructions .Route 4 09/01/24 Rx .COMPLEX #90 tabs nitroglycerin 0.4 mg sublingual 0.4 mg sublingual Q5-15M PRN chest 07/04/23 09/01/24 Rx tablet (Nitrostat) pain #25 tabs magnesium 200 mg tablet 200 mg PO QDAY 01/13/24 09/01/24 H istory pregabalin 50 mg capsule 50 mg PO QHS PRN neck pain #90 cap s 02/05/24 09/01/24 Rx lisinopril 10 mg tablet 10 mg PO BID #180 tabs 06/02/24 Rx amlodipine 2.5 mg tablet 2.5 mg PO DAILY #90 tabs 07/26/24 09/01/24 Rx atorvastatin 80 mg tablet See Rx Instructions .Route 5 09/01/24 Rx .COMPLEX #90 tabs metoprolol tartrate 50 mg tablet 50 mg PO BID #180 tabs 07/26/24 Rx Have you fallen in the past year?: Yes (x1) Nurse's Note: pt has c/o left knee pain and right shoulder right side of neck/ numbness and tingling right arm for past 1.5 weeks [facility] Medical History Right shoulder strain Scabies Thyroid goiter Back pain due to injury Family history of colon cancer Seborrheic keratoses Cervical disc disease Cervical cord compression with myelopathy Painful neck Swallowing problem Chronic back pain Nonrheumatic mitral (valve) prolapse Essential (primary) hypertension Back pain Obstructive sleep apnea GERD (gastroesophageal reflux disease) Atherosclerosis of coronary artery of [place] heart without angina pectoris Hyperlipidemia Surgical History History of orthopedic surgery History of facial surgery History of shoulder surgery H/O right knee surgery History of left heart catheterization (11/19/21) History of coronary artery stent placement (05/16/10) Family History Father CAD (coronary artery disease) Diabetes Heart disease Myocardial infarction Hypertension Mother Heart disease Diabetes CVA (cerebral vascular accident) Sister Breast cancer Colon cancer Brother Colon cancer Social History household members: spouse housing: house current occupational status: retired Smoking Status: Former smoker how long ago did patient quit smokin alcohol intake: former substance use type: does not use what type of physical activity do you participate in: walking and bicycling frequency: daily seatbelt use: always do you feel safe at home: Yes HPI HPI Chief Complaint: LEFT KNEE INJECTION Details: ARTURO CORONADO, is a 79 M who presents to the office today for a steroid injection in his left knee and complains about pain in his right arm and wrist. He has known carpal tunnel syndrome but this pain seems to be up into the arm more than the hand by itself. The knee problem is a chronic problem and we have evaluated with x-rays and I am going to try a cortisone injection to see how much relief he gets from the pain. ROS Const Constitutional: No body ache, chills, excessive sweating, fatigue, fever(s), frequent falls, headache(s), snoring, weight change, sleep problems, abnormal sleep pattern or change in appetite Eyes Eyes: No blurry vision, change in vision, eye pain or Light sensitivity ENT ENT: No abnormal hearing, ear or mastoid pain, tinnitus, siomara (more content not included)... Normal [facility] Completeon 08-04-2024 [facility] [address] [place] [address] [place] Complete 08/04/24 1303 MR#: [id number] Acct: [id number] Name: ARTURO CORONADO Rep #: [id number] : 1945 79 From: Adam Maloney MD Attending Dr: Carmen Garcia, PA Status: REG CLI Ordering Dr: Carmen Garcia Date: 06/29 Location: [facility] Sex: M C Admitted: Reason For Study Reason For Study: Mitral Valve Prolapse Procedure This was a 2D Doppler, Color Flow transthoracic echocardiogram. Exam performed in department. Left Ventricle Normal LV size. Left ventricular systolic function is normal. The left ventricular ejection fraction is 55 %. Stage 1 diastolic dysfunction. No regional wall motion abnormalities noted. Right Ventricle Normal RV size. Normal systolic function. Atria Normal left atrium. Normal right atrium. Hypermobile atrial septum. Mitral Valve Mild mitral valve prolapse, anterior leaflet. Mild-Moderate (1-2+) eccentric mitral valve insufficiency. Tricuspid Valve Normal tricuspid valve. Mild (1+) tricuspid valve insufficiency. Pulmonary artery systolic pressure is 36 mmHg. Aortic Valve Trisinus/trileaflet aortic valve. Pulmonic Valve Normal pulmonic valve. Great Vessels Normal aortic root. The pulmonary artery is normal size. Inferior vena cava collapse with respiration. Pericardium/Pleural No pericardial effusion. MMode/2D Measurements Calculations LVIDd: 4.6 cm IVSd: 0.96 cm Ao root diam: 3.3 cm LVIDs: 2.9 cm LVPWd: 0.98 cm RVDd: 3.4 cm FS: 37.0 % LAV(MOD-bp): 44.2 ml LA A4 area: 14.5 cm2 LA dimension(2D): 3.5 cm LAV(MOD-bp) Indexed: 21.9 ml/m2 LAV(MOD-sp2): 46.2 ml LAV(MOD-sp4): 31.5 ml RA A4 area: 15.8 cm2 Time Measurements MV dec time: 0.31 sec Doppler Measurements Calculations MV E max gail: 53.3 cm/sec Lat Peak E' Gail: 9.0 cm/sec Med Peak E' Gail: 5.9 cm/sec MV A max gail: 67.4 cm/sec E/E' lat: 5.9 E/E' med: 9.0 MV E/A: 0.79 MV V2 max: 68.2 cm/sec MV P1/2t max gail: 53.3 cm/sec Ao V2 max: 88.0 cm/sec MV max P.9 mmHg MV P1/2t: 90.0 msec Ao max P.1 mmHg MV V2 mean: 32.0 cm/sec MV dec slope: 173.4 cm/sec2 Ao V2 mean: 56.8 cm/sec MV mean P.50 mmHg Ao mean P.5 mmHg MV V2 VTI: 23.8 cm MVA(P1/2t): 2.4 cm2 Ao V2 VTI: 16.3 cm AV (velocity ratio): 1.1 LV V1 max: 88.6 cm/sec MR max gail: 639.5 cm/sec TR max gail: 285.7 cm/sec LV V1 max P.2 mmHg MR max P.8 mmHg TR max P.6 mmHg LV V1 mean P.6 mmHg LV V1 mean: 58.6 cm/sec LV V1 VTI: 17.2 cm ECHO/Echo Complete Interpretation Summary Hypermobile atrial septum. Normal LV size. Left ventricular systolic function is normal. The left ventricular ejection fraction is 55 %. Mild mitral valve prolapse, anterior leaflet Mild-Moderate (1-2+) eccentric mitral valve insufficiency. Stage 1 diastolic dysfunction. Pulmonary artery systolic pressure is 36 mmHg. Ordering Physician: Carmen Garcia Referring Physician: Carmen Garcia Performed By: Kun Shepherd RCS 08/04/24 1434 Date Adam Maloney MD CC: Dr. Gauri Vila DO; SEGUN Garcia Date Dictated: 08/04/24 1303 Date Transcribed: 08/04/24 1434 C D Still Operator: Signed Normal [facility] Office Vis itojoel 07-21-2024 Internal Medicine Office Visit [facility] [address] [place] [address] OFFICE VISIT Date of Service: 07/21/24 MR#: [id number] Acct: [id number] Name: ARTURO CORONADO René Rep #: [id number] : 1945 Provider: Dr. Gauri samson DO Age/Sex: 79/M Location: [facility] Status: Signed Intake Vital Signs 07/07/24 08:53 07/21/24 15:27 Height 5 ft 11 in 5 ft 11 in Weight: 180 lb 176 lb BMI 25.1 24.5 BP 125/78 H 142/78 H Blood Pressure Location Lt brachial Lt brachial Position Sitting Sitting Respiration 18 18 Pulse 61 67 Pulse Source Monitor Monitor Temp 98.2 F Temp Source Temporal Pulse Oximetry (%) 94 97 Oxygen Delivery Method room air Intake Visit Reasons: lft knee pain/itching Chief Complaint: Left knee pain/itching Is patient in pain?: Yes (8 left knee and right lateral side ) Allergies niacin (From Niaspan Extended-Release) Allergy (Verified 07/21/24 15:26) Extreme Itching cyclobenzaprine Adverse Reaction (Unknown, Verified 07/21/24 15:26) Heart feels like wants to stop Medications ???Medication ???Instructions ???Recorded ???Confirmed ???Type coenzyme [id number] 100 mg-20 1 ea PO DAILY 03/25/13 07/21/24 History mg capsule multivitamin with folic acid 400 1 tab PO DAILY 03/25/13 07/21/24 H istory mcg tablet omega-3 fatty acids 1,000 mg 1,000 mg PO DAILY 08/20/18 5 History capsule aspirin 81 mg chewable tablet 81 mg PO DAILY #90 tabs 08/15/20 0 07/21/24 Rx clopidogrel 75 mg tablet See Rx Instructions .Route 4 07/21/24 Rx .COMPLEX #90 tabs atorvastatin 80 mg tablet See Rx Instructions .Route 4 07/21/24 Rx .COMPLEX #90 tabs metoprolol tartrate 50 mg tablet 50 mg PO BID #180 tabs 07/04/23 Rx nitroglycerin 0.4 mg sublingual 0.4 mg sublingual Q5-15M PRN chest 07/04/23 07/21/24 Rx tablet (Nitrostat) pain #25 tabs magnesium 200 mg tablet 200 mg PO QDAY 01/13/24 07/21/24 H istory amlodipine 2.5 mg tablet 2.5 mg PO DAILY #90 tabs 01/21/24 07/21/24 Rx pregabalin 50 mg capsule 50 mg PO QHS PRN neck pain #90 cap s 02/05/24 07/21/24 Rx lisinopril 10 mg tablet 10 mg PO BID #180 tabs 06/02/24 Rx fexofenadine 180 mg tablet 180 mg PO Q24H #30 tabs 07/21/24 0 07/21/24 Rx (Tereza Hives) Have you fallen in the past year?: Yes (x1) Nurse's Note: pt reports he has been having itching bilateral shins for the past 6-8 weeks pt reports that he has pain/discomfort right lateral side and left knee post fall from about 2 months ago [facility] Medical History Right shoulder strain Scabies Thyroid goiter Back pain due to injury Family history of colon cancer Seborrheic keratoses Cervical disc disease Cervical cord compression with myelopathy Painful neck Swallowing problem Chronic back pain Nonrheumatic mitral (valve) prolapse Essential (primary) hypertension Back pain Obstructive sleep apnea GERD (gastroesophageal reflux disease) Atherosclerosis of coronary artery of [place] heart without angina pectoris Hyperlipidemia Surgical History History of orthopedic surgery History of facial surgery History of shoulder surgery H/O right knee surgery History of left heart catheterization (11/19/21) History of coronary artery stent placement (05/16/10) Family History Father CAD (coronary artery disease) Diabetes Heart disease Myocardial infarction Hypertension Mother Heart disease Diabetes CVA (cerebral vascular accident) Sister Breast cancer Colon cancer Brother Colon cancer Social History household members: spouse housing: house current occupational status: retired Smoking Status: Former smoker how long ago did patient quit smokin alcohol intake: former substance use type: does not use what type of physical activity do you participate in: walking and bicycling frequency: daily seatbelt use: always do you feel safe at home: Yes HPI HPI Chief Complaint: Left knee pain/itching Details: ARTURO CORONADO, is a 79 M who presents to the office today for left knee pain and chronic itching. Patient had fallen sometime ago and took a lot of Tylenol because of the discomfort he is concerned that the Tylenol cause liver damage was caused itching. There is no rash just the itching. In addition his left knee pain is getting worse and it is fairly well localized over the medial meniscus of the left knee. ROS Const Constitutional: No body ache, chills, excessive sweating, fatigue, fever(s), frequent falls, headache(s), snoring, weight change, sleep problems, abnormal sleep pattern or change (more content not included)... Normal [facility] Knee 4 or More Viewson 07-21 Knee 4 or More Views [facility] Imaging Services [address], [place] [id number] Knee 4 or More Views MR#: [id number] Acct: [id number] Name: ARTURO CORONADO Rep #: [id number] : 1945 M 79 From: Tien Ferro MD PCP: Dr. Gauri Vila DO Status: REG CLI Study: Knee 4 or More Views Date of Exam: 07/21/24 Exam# [id number] Ordering Dr: Gauri Vila DO PROCEDURE: KNEE 4 OR MORE VIEWS (RADKN), 07/21/2024 REASON FOR EXAM: PAIN TECHNIQUE: AP, lateral, AP tunnel, and sunrise views of the LEFT knee were obtained COMPARISON: None FINDINGS: Fracture/dislocation : None visible. Joint space(s): Preserved. Soft tissues: Joint effusion. Foreign bodies: None visible. Bone mineralization: Demineralization. Other: None. RAD/Knee 4 or More Views IMPRESSION: Demineralization without visible acute displaced fracture, however with a joint effusion. If there is persistent concern for occult nondisplaced fracture or other internal derangement, recommend CT/MRI, as indicated. Reading Location: [id number] CC: Dr. Gauri Vila DO C D Still Operator: Signed Normal [facility] Cardiology Visit Reporton Cardiology Visit Report [facility] [address] [place], [place] [address] OFFICE VISIT Date of Service: 07/07/24 MR#: [id number] Acct: [id number] Name: ARTURO CORONADO Rep #: [id number] : 1945 Provider: SEGUN Burton Age/Sex: 79/M Location: [facility] Status: Signed HPI HPI History of Present Illness Details: Arturo Coronado is a 79 year old gentleman with a history of coronary artery disease status post angioplasty and stenting of the left anterior descending artery, and diagonal vessel. He also has a history of hypertension and hyperlipidemia and obstructive sleep apnea. His last catheterization was in 2013 demonstrated no significant obstructive coronary disease. He had a repeat heart catheterization from November 2021 which demonstrated nonobstructive coronary artery disease with previously placed stent to his LAD patent. Pt has been having palpitations. They feel like they skip 1-2 beats at at time. Pt still does have pain in his back that radiates around to his chest. This is not new, it has been going of for years. It goes away with stretching. He recently saw a neurosurgeon at the [facility] and was told that he would not benefit from any surgery. He has not needed to use any NTG. He does not have any worsening SOB. He has not had any palpitations. He does not have any lightheadedness/dizz iness. He does not have any edema. He does not have any claudication. He did see pain management for neck pain, these injections are not as effective. His BP has been variable at home at times. He is scheduled is have a lens replacement at the eye center on 07/19/24. Do not feel any additional testing needs done prior. Intake Vital Signs 07/04/23 13:44 07/07/24 08:53 Height 5 ft 11 in 5 ft 11 in Weight: 180 lb BMI 25.1 BP 125/78 H Blood Pressure Location Lt brachial Position Sitting Respiration 18 Pulse 61 Pulse Source Monitor Pulse Oximetry (%) 94 Intake Visit Reasons: 1 Y FU Senior Ui Designer Required: No Is patient in pain?: No Allergies niacin (From Niaspan Extended-Release) Allergy (Verified 07/07/24 14:22) Extreme Itching cyclobenzaprine Adverse Reaction (Unknown, Verified 07/07/24 14:22) Heart feels like wants to stop Medications ???Medication ???Instructions ???Recorded ???Confirmed ???Type coenzyme [id number] 100 mg-20 1 ea PO DAILY 03/25/13 07/07/24 History mg capsule multivitamin with folic acid 400 1 tab PO DAILY 03/25/13 04/14/24 H istory mcg tablet omega-3 fatty acids 1,000 mg 1,000 mg PO DAILY 08/20/18 5 History capsule aspirin 81 mg chewable tablet 81 mg PO DAILY #90 tabs 08/15/20 0 07/07/24 Rx clopidogrel 75 mg tablet See Rx Instructions .Route 4 04/14/24 Rx .COMPLEX #90 tabs atorvastatin 80 mg tablet See Rx Instructions .Route 4 04/14/24 Rx .COMPLEX #90 tabs metoprolol tartrate 50 mg tablet 50 mg PO BID #180 tabs 07/04/23 Rx nitroglycerin 0.4 mg sublingual 0.4 mg sublingual Q5-15M PRN chest 07/04/23 07/07/24 Rx tablet (Nitrostat) pain #25 tabs benzonatate 200 mg capsule 200 mg PO TID PRN cough #20 caps 0 01/13/24 07/07/24 Rx magnesium 200 mg tablet 200 mg PO QDAY 01/13/24 04/14/24 H istory amlodipine 2.5 mg tablet 2.5 mg PO DAILY #90 tabs 01/21/24 07/07/24 Rx pregabalin 50 mg capsule 50 mg PO QHS PRN neck pain #90 cap s 02/05/24 04/14/24 Rx prednisone 20 mg tablet 20 mg PO .COMPLEX #12 tabs 4 04/14/24 Rx lisinopril 10 mg tablet 10 mg PO BID #180 tabs 06/02/24 Rx Ejection fraction %: 50 Have you fallen in the past year?: Yes Nurse's Note: unable to confirm all medications [facility] Medical History Right shoulder strain Scabies Thyroid goiter Back pain due to injury Family history of colon cancer Seborrheic keratoses Cervical disc disease Cervical cord compression with myelopathy Painful neck Swallowing problem Chronic back pain Nonrheumatic mitral (valve) prolapse Essential (primary) hypertension Back pain Obstructive sleep apnea GERD (gastroesophageal reflux disease) Atherosclerosis of coronary artery of [place] heart without angina pectoris Hyperlipidemia Surgical History History of orthopedic surgery History of facial surgery History of shoulder surgery H/O right knee surgery History of left heart catheterization (11/19/21) History of coronary artery stent placement (05/16/10) Family History Father CAD (coronary artery disease) Diabetes Heart disease Myocardial infarction Hypertension Mother Heart disease Diabetes CVA (cerebral vascular accident) S (more content not included)... Normal [facility] Bilirubin directOrdered By: Carmen Garcia on 07-05-2024 Bilirubin.direct [Mass/Vol] 0.51 mg/dL High 0.00-0.30 [facility] Bilirubin, totalOrdered By: Carmen Garcia on 07-05-2024 Bilirubin [Mass/Vol] 1.38 mg/dL High 0.00-1.30 [facility] Calculated very low density lipoprotein (VLDL) cholesterol measurementOrdered By: Carmen Garcia on 07-05-2024 Calculated very low density lipoprotein (VLDL) cholesterol measurement 15 mg/dL 5-40 [facility] VLDL Cholesterol 15 mg/dL 5-40 [facility] LDL calc ser/plasOrdered By: Carmen Garcia on 07-05-2024 Cholesterol in LDL [Mass/Vol] 62 mg/dL [facility] Comment on above: Mlxbfeermu=336-950 m g/dL & Higher Rfiu=430 mg/dL or greater LDL Cholesterol, Calculated 62 mg/dL [facility] Comment on above: Dogfiolywm=128-384 m g/dL & Higher Mcza=526 mg/dL or greater Laboratory - Chemistry and C hemistry - challengeOrdered By: Carmen Garcia on 07-05-2024 AST [Catalytic activity/Vol] 43 U/L High <38 [facility] Lipid Profileon 07-05-2024 CHOL:HDL 2.65 Normal [facility] Comment on above: Order Comment: PT [place] NTED DFONE TODAY Performed By: #### L 500.3400, L500.4100 ####[facility] [address] [place], [address] Cholesterol [Mass/Vol] 123 mg/dL Normal <=200 [facility] Comment on above: Order Comment: PT [place] NTED DFONE TODAY Result Comment: Chol esterol level, Desirable <200 mg/dL Borderline high cholesterol 200-239 mg/dL High cholesterol >=240 mg/dL Recommendations of the NCEP Adult Treatment Panel for the following risk-cutoff thresholds for the [place] population. Performed By: #### L 500.3400, L500.4100 ####[facility] [address] [place], [address] Cholesterol in HDL [Mass/Vol] 47 mg/dL Normal [facility] Comment on above: Order Comment: PT [place] NTED DFONE TODAY Result Comment: Alejandra onal Cholesterol Education Program (NCEP) guidelines: <40 mg/dL: Low HDL-cholesterol (major risk factor for CHD) >= 60 mg/dL: High HDL-cholesterol (negative risk factor for CHD) HDL-cholesterol is affected by a number of factors, e.g. smoking, exercise, hormones, sex and age. Performed By: #### L 500.3400, L500.4100 ####[facility] [address] [place], [address] Cholesterol in LDL [Mass/Vol] 62 mg/dL Normal [facility] Comment on above: Order Comment: PT [place] NTED DFONE TODAY Result Comment: Bord asufge=721-484 mg/dL Higher Zecj=003 mg/dL or greater Performed By: #### L 500.3400, L500.4100 ####[facility] [address] [place], [address] Cholesterol in VLDL [Mass/Vol] 15 mg/dL Normal 5-40 [facility] Comment on above: Order Comment: MICHELLE MCPHERSON NTED DFONE TODAY Performed By: #### L 500.3400, L500.4100 ####[facility] [address] [place], [address] Triglyceride [Mass/Vol] 73 mg/dL Normal [facility] Comment on above: Order Comment: PT [place] NTED DFONE TODAY Result Comment: The drugs N-Acetylcysteine and Metamizole may falsely depress this assay. Normal range: <150 mg/dL Borderline High: 150-199 mg/dL High: 200-499 mg/dL Very High: >500 mg/dL Performed By: #### L 500.3400, L500.4100 ####[facility] [address] [place], [address] Liver Profileon 07-05-2024 Albumin [Mass/Vol] 4.1 g/dL Normal 3.4-4.8 [facility] Comment on above: Order Comment: PT [place] NTED DFONE TODAY Performed By: #### L 500.3400, L500.4100 ####[facility] [address] [place], [address] ALK PHOS 105 U/L Normal 40-129 [facility] Comment on above: Order Comment: PT [place] NTED DFONE TODAY Performed By: #### L 500.3400, L500.4100 ####[facility] [address] [place], [address] ALT [Catalytic activity/Vol] 44 U/L Normal <=46 [facility] Comment on above: Order Comment: PT [place] NTED DFONE TODAY Performed By: #### L 500.3400, L500.4100 ####[facility] [address] [place], [address] AST [Catalytic activity/Vol] 43 U/L High <=37 [facility] Comment on above: Order Comment: PT [place] NTED DFONE TODAY Performed By: #### L 500.3400, L500.4100 ####[facility] [address] [place], [address] Bilirubin [Mass/Vol] 1.38 mg/dL High 0.00-1.30 [facility] Comment on above: Order Comment: PT [place] NTED DFONE TODAY Performed By: #### L 500.3400, L500.4100 ####[facility] [address] [place], [address] Bilirubin.direct [Mass/Vol] 0.51 mg/dL High 0.00-0.30 [facility] Comment on above: Order Comment: PT [place] NTED DFONE TODAY Performed By: #### L 500.3400, L500.4100 ####[facility] [address] [place], [address] Globulin (S) [Mass/Vol] 2.4 g/dL Normal 2.2-4.2 [facility] Comment on above: Order Comment: PT [place] NTED DFONE TODAY Performed By: #### L 500.3400, L500.4100 ####[facility] [address] [place], [address] T PROT 6.5 g/dL Normal 5.9-8.4 [facility] Comment on above: Order Comment: PT [place] NTED DFONE TODAY Performed By: #### L 500.3400, L500.4100 ####[facility] [address] [place], [address] Screening total cholesterol/ high density lipoprotein (HDL) cholesterol ratioOrdered By: Carmen Garcia on 07-05-2024 Cholesterol.total/Cris sterol in HDL [Mass ratio] 2.65 {ratio} [facility] Serum globulin measurementOr dered By: Carmen Garcia on 07-05-2024 Globulin (S) [Mass/Vol] 2.4 g/dL 2.2-4.2 [facility] Serum or plasma alanine tyler otransferase (ALT) measurementOrdered By: Carmen Garcia on 07-05-2024 ALT [Catalytic activity/Vol] 44 U/L <47 [facility] Serum or plasma albumin phillip urement (mass/volume)Ordered By: Carmen Garcia on 07-05-2024 Albumin [Mass/Vol] 4.1 g/dL 3.4-4.8 [facility] Serum or plasma alkaline mera sphatase measurementOrdered By: Carmen Garcia on 07-05-2024 ALP [Catalytic activity/Vol] 105 U/L 40-129 [facility] Serum or plasma cholesterol in HDL measurement (mass/volume)Ordered By: Carmen Garcia on 07-05-2024 Cholesterol in HDL [Mass/Vol] 47 mg/dL >40 [facility] Comment on above: National Cholesterol Education Program (NCEP) guidelines:<40 mg/dL: Low HDL-cholesterol (major risk factor for CHD)>= 60 mg/dL: High HDL-cholesterol (negative risk factor for CHD)HDL-cholesterol is affected by a number of factors, e.g. smoking, exercise, hormones, sex and age. Serum or plasma cholesterol measurement (mass/volume)Ordered By: Carmen Garcia on 07-05-2024 Cholesterol [Mass/Vol] 123 mg/dL <201 [facility] Comment on above: Cholesterol level, D esirable <200 mg/dLBorderline high cholesterol 200-239 mg/dLHigh cholesterol >=240 mg/dLRecommendations of the NCEP Adult Treatment Panel for the following risk-cutoff thresholds for the [place] population. Total proteinOrdered By: Venancio Garcia on 07-05-2024 Protein [Mass/Vol] 6.5 g/dL 5.9-8.4 [facility] Triglycerides measurementOrd ered By: Carmen Garcia on 07-05-2024 Triglyceride [Mass/Vol] 73 mg/dL <199 [facility] Comment on above: The drugs N-Acetylcy steine and Metamizole may falsely depress this assay. Normal range: <150 mg/dLBorderline High: 150-199 mg/dLHigh: 200-499 mg/dLVery High: >500 mg/dL Internal Medicine Office Vis gato 04-14-2024 Internal Medicine Office Visit [facility] [address] [place] [address] [address] [place] [address] OFFICE VISIT Date of Service: 04/14/24 MR#: [id number] Acct: [id number] Name: ARTURO CORONADO Rep #: [id number] : 1945 Provider: Dr. Gauri Pitt own, DO Age/Sex: 79/M Location: [facility] Status: Signed Intake Vital Signs 04/03/24 10:15 04/14/24 16:23 Height 5 ft 11 in 5 ft 11 in Weight: 180 lb BMI 25.1 BP 118/70 Blood Pressure Location Lt brachial Position Sitting Respiration 16 Pulse 71 Pulse Source Monitor Temp 97.3 F L Temp Source Temporal Intake Visit Reasons: [facility] FU Chief Complaint: [facility] f/u Senior Ui Designer Required: No Accompanied by: Self Is patient in pain?: No Allergies niacin (From Niaspan Extended-Release) Allergy (Verified 04/14/24 16:20) Extreme Itching cyclobenzaprine Adverse Reaction (Unknown, Verified 04/14/24 16:20) Heart feels like wants to stop Medications ???Medication ???Instructions ???Recorded ???Confirmed ???Type coenzyme [id number] 100 mg-20 1 ea PO DAILY 03/25/13 04/14/24 History mg capsule multivitamin with folic acid 400 1 tab PO DAILY 03/25/13 04/14/24 History mcg tablet omega-3 fatty acids 1,000 mg 1,000 mg PO DAILY 08/20/18 04/14/24 History capsule aspirin 81 mg chewable tablet 81 mg PO DAILY #90 tabs 08/15/20 04/14/24 Rx clopidogrel 75 mg tablet See Rx Instructions .Route 06/24/23 04/14/24 Rx .COMPLEX #90 tabs atorvastatin 80 mg tablet See Rx Instructions .Route 07/04/23 04/14/24 Rx .COMPLEX #90 tabs lisinopril 10 mg tablet 10 mg PO BID #180 tabs 07/04/23 04/14/24 Rx metoprolol tartrate 50 mg tablet 50 mg PO BID #180 tabs 07/04/23 04/14/24 Rx nitroglycerin 0.4 mg sublingual 0.4 mg sublingual Q5-15M PRN chest 07/04/23 04/14/24 Rx tablet (Nitrostat) pain #25 tabs benzonatate 200 mg capsule 200 mg PO TID PRN cough #20 caps 01/13/24 04/14/24 Rx magnesium 200 mg tablet 200 mg PO QDAY 01/13/24 04/14/24 History amlodipine 2.5 mg tablet 2.5 mg PO DAILY #90 tabs 01/21/24 04/14/24 Rx pregabalin 50 mg capsule 50 mg PO QHS PRN neck pain #90 caps 02/05/24 04/14/24 Rx prednisone 20 mg tablet 20 mg PO .COMPLEX #12 tabs 04/14/24 04/14/24 Rx Have you fallen in the past year?: No PFSH Medical History Right shoulder strain Scabies Thyroid goiter Back pain due to injury Family history of colon cancer Seborrheic keratoses Cervical disc disease Cervical cord compression with myelopathy Painful neck Swallowing problem Chronic back pain Nonrheumatic mitral (valve) prolapse Essential (primary) hypertension Back pain Obstructive sleep apnea GERD (gastroesophageal reflux disease) Atherosclerosis of coronary artery of [place] heart without angina pectoris Hyperlipidemia Surgical History History of orthopedic surgery History of facial surgery History of shoulder surgery H/O right knee surgery History of left heart catheterization (11/19/21) History of coronary artery stent placement (05/16/10) Family History Father CAD (coronary artery disease) Diabetes Heart disease Myocardial infarction Hypertension Mother Heart disease Diabetes CVA (cerebral vascular accident) Sister Breast cancer Colon cancer Brother Colon cancer Social History household members: spouse housing: house current occupational status: retired Smoking Status: Former smoker how long ago did patient quit smokin alcohol intake: former substance use type: does not use what type of physical activity do you participate in: walking and bicycling frequency: daily seatbelt use: always do you feel safe at home: Yes HPI HPI Chief Complaint: [facility] f/u Details: ARTURO CORONADO, is a 79 M who presents to the office today for a follow-up after having been seen with pain in his left calf. This patient was up on the ladder for couple of hours up and down cleaning leaves. The following day he had rather significant discomfort in his left calf and went into the emergency room where he was examined and a venous Doppler was done that showed no sign of a blood clot. No treatment was offered and so he is here today to be examined. ROS Const Constitutional: No body ache, chills, excessive sweating, fatigue, fever(s), frequent falls, headache(s), snoring, weakness or change in appetite Eyes Eyes: No blurry vision, change in vision, eye pain or Light sensitivity ENT ENT: No abnormal hearing, ear or mastoid pain, tinnitus, nasal congestion, headache(s), neck pain or sore throat Resp Respiratory: No cough, shortness of breath, snoring or wheezing Cardio Cardiology: No chest pain at rest, chest p (more content not included)... Normal [place] 04-03-2024 [facility] Office Visit ([facility]) ARTURO CORONADO ([id number]) 1945 M Date Time Provider Department 04/03/24 9:45 AM MANDY LAZARO RUST During your visit today, we recorded the following information about you: Temperature Pulse Respiration Blood pressure 97.5 degrees 67/minute 20/minute 110/80 Weight 81 kg Mandy Lazaro PA-C 04/03/2024 9:59 AM Signed This note was created using [facility]. Subjective Arturo Merritt Cliff is a 79 year old male. HPI Presents with left leg pain for 2 weeks. It started behind his left knee and then started going down his calf and now is on his inner thigh up to his groin. He states he was doing some yard work initially and then it was sore after. Denies chest pain or shortness of breath. He does have a history of a DVT after a knee surgery several years ago. He is on aspirin and Plavix. Denies any recent travel. No injury to the leg. Review of Systems Musculoskeletal: Left leg pain All other systems reviewed and are negative. PAST MEDICAL HISTORY Diagnosis Date Cervicalgia Complete rupture of rotator cuff [address] Lee History of blood clots Mixed hyperlipidemia Nonallopathic lesion of rib cage, not elsewhere classified Other and unspecified angina pectoris Reflux esophagitis Current Outpatient Medications Medication Sig Dispense Refill aspirin, enteric coated (ASPIRIN, ENTERIC COATED) 81 mg EC tablet Take 81 mg by mouth once daily. amLODIPine (NORVASC) 2.5 mg tablet pregabalin (LYRICA) 50 mg capsule atorvastatin (LIPITOR) 80 mg tablet Take 1 tablet by mouth once daily. 0 metoprolol tartrate, short acting, 50 mg tablet Take 1 tablet by mouth twice daily. 0 lisinopril 5 mg ORAL tablet Take 5 mg by mouth once daily. clopidogrel (PLAVIX) 75 mg ORAL tablet Take 75 mg by mouth once daily. nitroglycerin sublingual (NITROSTAT) 0.4 mg SUBLINGUAL SL tablet Dissolve 0.4 mg under the tongue every 5 minutes as needed. niacin sustained release (NIASPAN) 500 mg ORAL tablet Take 500 mg by mouth once daily. (Patient not taking: Reported on 04/03/2024) aspirin, enteric coated (ENTERIC COATED ASPIRIN) 325 mg ORAL EC tablet Take 325 mg by mouth once daily. (Patient not taking: Reported on 04/03/2024) No current facility-administere d medications for this visit. PAST SURGICAL HISTORY Procedure Laterality Date PAST SURGICAL HISTORY OF 1984 facial surgery PAST SURGICAL HISTORY OF 1981 right shoulder surgery PAST SURGICAL HISTORY OF 2008 right knee surgery x2/meniscus tear FAMILY HISTORY Problem Relation Age of Onset Heart Mother Heart Father Diabetes Mother Diabetes Father Hypertension Father Colon Cancer Brother Stroke Mother Social History Tobacco Use Smoking status: Former Current packs/day: 0.00 Average packs/day: 3.0 packs/day for 15.0 years (45.0 ttl pk-yrs) Types: Cigarettes Start date: 05/04/1965 Quit date: 05/04/1980 Years since quittin.9 Smokeless tobacco: Never Substance Use Topics Alcohol use: No Drug use: No Objective BP 110/80 Pulse 67 Temp 36.4 ?C (97.5 ?F) Resp 20 Wt 81 kg (178 lb 9.2 oz) SpO2 98% Physical Exam Vitals reviewed. Constitutional: Appearance: Normal appearance. HENT: Head: Normocephalic and atraumatic. Musculoskeletal: Comments: Patient has some tenderness to palpation to the medial left calf. Mildly antalgic gait. No obvious swelling. Skin: General: Skin is warm and dry. Neurological: Mental Status: He is alert. Assessment and Plan .ASSESSMENT/PLAN: 1. Left leg pain - ICD9: 729.5, ICD10: M79.605 (primary diagnosis) Patient has pain in his calf up to his groin with history of DVT. Recommended he have an ultrasound to rule this out. Unable to obtain this over the weekend, referred him to the emergency department. He will go to [facility] across the street. 2. History of DVT (deep vein thrombosis) - ICD9: V12.51, ICD10: Z86.718 Mandy Lazaro PA-C Allergies As of Date: 04/03/2024 Noted Allergy Reaction NIACIN 04/15/2016 9 - Itching Date Reviewed: 04/03/2024 Reviewed by: Nohemy Persaud MA - Fully Assessed Reason for Visit: Pain [78] Cmt: Left leg pain x 2 weeks Primary Visit Diagnosis:Left leg pain [M79.605] Other Visit Diagnosis:History of DVT (deep vein thrombosis) [Z86.718] Prescriptions as of 04/03/2024 - aspirin, enteric coated (ASPIRIN, ENTERIC COATED) 81 mg EC tablet Take 81 mg by mouth once daily. - amLODIPine (NORVASC) 2.5 mg tablet - pregabalin (LYRICA) 50 mg capsule - atorvastatin (LIPITOR) 80 mg tablet Take 1 tablet by mouth once daily. - metoprolol tartrate, short acting, 50 mg tablet Take 1 tablet by mouth twice daily. - lisinopril 5 mg ORAL tablet Take 5 mg by mouth once daily. - clopidogrel (PLAVIX) 75 mg ORAL tablet Take 75 mg by mouth once daily. - niacin sustained release (NIASPAN) 500 mg ORAL tablet (more content not included)... Normal [facility] Emergency Department Summary on 04-03-2024 Emergency Department Summary [facility] Medical Records Department [address] [place] [address] Emergency Department Summary 04/03/24 MR#: [id number] Acct: [id number] Name: ARTURO CORONADO Rep #: [id number] : 1945 79 From: Lisa Fernandez DO PCP: Dr. Gauri Vila, DO Status:DEP ER Location: ED HPI History of Present Illness Chief Complaint: Lower Extremity Injury Detail of Chief Complaint: Left leg pain Informant: patient Narrative Narrative: Patient presents with left leg pain that has had for about 2 weeks. Patient states that 2 weeks ago he was working in the yard developed some soreness behind both knees and did not think much of it. After 1 day the soreness in the right leg went away but continued in the left leg. Pain at times in the calf and down to about the foot but now in the last day or 2 he has had discomfort all the way up to the thigh to his groin. He denies chest pain or shortness of breath. 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 Currently not anticoagulated but does take Plavix. He has history of a cardiac stent. [facility] Medical History Right shoulder strain Scabies Thyroid goiter Back pain due to injury Family history of colon cancer Seborrheic keratoses Cervical disc disease Cervical cord compression with myelopathy Painful neck Swallowing problem Chronic back pain Nonrheumatic mitral (valve) prolapse Essential (primary) hypertension Back pain Obstructive sleep apnea GERD (gastroesophageal reflux disease) Atherosclerosis of coronary artery of [place] heart without angina pectoris Hyperlipidemia Home Medications ???Medication ???Instructions ???Recorded ???Last Taken ???Type coenzyme K85-M-[id number] 100 mg-20 1 ea PO DAILY 03/25/13 07/03/20 History mg capsule multivitamin with folic acid 400 1 tab PO DAILY 03/25/13 07/03/20 History mcg tablet omega-3 fatty acids 1,000 mg 1,000 mg PO DAILY 08/20/18 07/03/20 History capsule aspirin 81 mg chewable tablet 81 mg PO DAILY #90 tabs 08/15/20 11/19/21 Rx clopidogrel 75 mg tablet See Rx Instructions .Route 06/24/23 Unknown Rx .COMPLEX #90 tabs atorvastatin 80 mg tablet See Rx Instructions .Route 07/04/23 Unknown Rx .COMPLEX #90 tabs lisinopril 10 mg tablet 10 mg PO BID #180 tabs 07/04/23 Unknown Rx metoprolol tartrate 50 mg tablet 50 mg PO BID #180 tabs 07/04/23 Unknown Rx nitroglycerin 0.4 mg sublingual 0.4 mg sublingual Q5-15M PRN chest 07/04/23 Unknown Rx tablet (Nitrostat) pain #25 tabs benzonatate 200 mg capsule 200 mg PO TID PRN cough #20 caps 01/13/24 Unknown Rx dexamethasone 6 mg tablet 6 mg PO DAILY #5 tabs 01/13/24 Unknown Rx magnesium 200 mg tablet 200 mg PO QDAY 01/13/24 Unknown History amlodipine 2.5 mg tablet 2.5 mg PO DAILY #90 tabs 01/21/24 Unknown Rx pregabalin 50 mg capsule 50 mg PO QHS PRN neck pain #90 caps 02/05/24 Unknown Rx Allergy/AdvReac Type Severity Reaction Status Date / Time niacin (From [employer] Allergy Extreme Verified 04/03/24 10:17 Extended-Release) Itching cyclobenzaprine AdvReac Unknown Heart Verified 04/03/24 10:17 feels like wants to stop Family History Father CAD (coronary artery disease) Diabetes Heart disease Myocardial infarction Hypertension Mother Heart disease Diabetes CVA (cerebral vascular accident) Sister Breast cancer Colon cancer Brother Colon cancer Surgical History History of orthopedic surgery History of facial surgery History of shoulder surgery H/O right knee surgery History of left heart catheterization (11/19/21) History of coronary artery stent placement (05/16/10) Social History household members: spouse housing: house current occupational status: retired Smoking Status: Former smoker how long ago did patient quit smokin alcohol intake: former substance use type: does not use what type of physical activity do you participate in: walking and bicycling frequency: daily seatbelt use: always do you feel safe at home: Yes ROS ROS ED Review of Systems ROS Unobtainable: other Constitutional Constitutional ED: Reports lethargy; Denies chills, fever(s), sweats or weight loss Eyes Eyes: Denies blurry vision, change in vision or diplopia ENT ENT ED: Denies rhinorrhea or sore throat Cardiovascular Cardiovascular: Denies chest pain, orthopnea or racing heartbeat Respiratory/Chest Respiratory/Chest: Denies cough, dyspnea, dyspnea on exertion, orthopnea or sputum Gastrointestinal Gastrointestinal: Denies abdominal pain, diarrhea, nausea or vomiting Genitourinary Genitourinary ED: Luciano (more content not included)... Normal [facility] Venous Duplex US, Unilateral on 04-03-2024 Venous Duplex US, Unilateral [facility] [address] [place] [address] Venous Duplex US, Unilateral 04/03/24 1249 MR#: [id number] Acct: [id number] Name: ARTURO CORONADO Rep #: [id number] : 1945 79 From: Drake Carmen MD Attending Dr: Status: DEP ER Ordering Dr: Lisa Fernandez DO Date: 04/03/24 Location: ED Sex: M C Admitted: Reason For Study: Left leg pain RIGHT LEFT CFV is compressible, spontaneous, phasic, GSV is normal. competent and demonstrates normal CFV is compressible, spontaneous, phasic, augmentation. competent, and demonstrates normal Procedure augmentation. This is a venous duplex using B-mode, color FV is compressible, spontaneous, phasic, flow and spectral Doppler. competent and demonstrates normal Exam performed portable in ED. augmentation. A preliminary report was called and/or faxed POP V is compressible, spontaneous, phasic, to Cristy SNOW. competent and demonstrates normal augmentation. T/P Trunk is compressible. PTV is compressible. LT PerV is compressible. VL/Venous Duplex US, Unilateral Interpretation Summary Deep veins of the left lower extremity are patent and compressible segmentally. There is no evidence of left lower extremity deep vein thrombosis. Valvular competence appears intact within the proximal deep venous system on the left . The left great saphenous vein appears patent and compressible segmentally. The right common femoral vein is patent and compressible . Ordering Physician: Lisa Fernandez Referring Physician: Fran Vila M.D. Performed By: Kate Mcleod RVT 04/03/24 1613 Date Drake Carmen MD CC: Dr. Gauri Vila, ; Dr. Lisa Fernandez DO Date Dictated: 04/03/24 1249 Date Transcribed: 04/03/241612 C D Still Operator: Signed Normal [facility] Lipid Profileon 03-15-2024 Cholesterol [Mass/Vol] 129 mg/dL Normal 200 [facility] Comment on above: Result Comment: <200 mg/dL Desirable 200-240 mg/dL Borderline >240 mg/dL High Risk Performed By: #### L 500.3400, L500.4100 ####[facility] [address] [place], [address] Cholesterol in HDL [Mass/Vol] 46 mg/dL Normal [facility] Comment on above: Result Comment: The drugs N-Acetylcysteine and Metamizole may falsely depress this assay. Reference Range HDL <40 mg/dL Low HDL Cholesterol HDL >or= 60 mg/dL High HDL Cholesterol Performed By: #### L 500.3400, L500.4100 ####[facility] [address] [place], [address] Cholesterol in LDL [Mass/Vol] 72 mg/dL Normal 0-130 [facility] Comment on above: Performed By: #### L 500.3400, L500.4100 ####[facility] [address] [place], [address] Cholesterol in VLDL [Mass/Vol] 11 mg/dL Normal 5-40 [facility] Comment on above: Performed By: #### L 500.3400, L500.4100 ####[facility] [address] [place], [address] Triglyceride [Mass/Vol] 53 mg/dL Normal [facility] Comment on above: Result Comment: The drugs N-Acetylcysteine and Metamizole may falsely depress this assay. Serum Triglycerides Reference Interval Normal <150 mg/dL Borderline high 150 - 199 mg/dL High 200 - 499 mg/dL Very High > or = 500 mg/dL Performed By: #### L 500.3400, L500.4100 ####[facility] [address] [place], [address] Liver Profileon 03-15-2024 Albumin [Mass/Vol] 3.9 g/dL Normal 3.2-5.0 [facility] Comment on above: Performed By: #### L 500.3400, L500.4100 ####[facility] [address] [place], [address] ALK P 94 U/L Normal 45-117 [facility] Comment on above: Performed By: #### L 500.3400, L500.4100 ####[facility] [address] [place], [address] ALT [Catalytic activity/Vol] 36 U/L Normal 16-61 [facility] Comment on above: Performed By: #### L 500.3400, L500.4100 ####[facility] [address] [place], [address] AST [Catalytic activity/Vol] 28 U/L Normal 15-37 [facility] Comment on above: Performed By: #### L 500.3400, L500.4100 ####[facility] [address] [place], [address] Bilirubin [Mass/Vol] 1.10 mg/dL High 0.20-1.00 [facility] Comment on above: Result Comment: For patients on eltrombopag therapy, use of Dimension [place] TBIL is not recommended. Performed By: #### L 500.3400, L500.4100 ####[facility] [address] [place], [address] Bilirubin.direct [Mass/Vol] 0.27 mg/dL Normal 0.00-0.30 [facility] Comment on above: Performed By: #### L 500.3400, L500.4100 ####[facility] [address] [place], [address] Globulin (S) [Mass/Vol] 3.0 g/dL Normal 2.2-4.2 [facility] Comment on above: Performed By: #### L 500.3400, L500.4100 ####[facility] [address] [place], [address] T PROT 6.9 g/dL Normal 6.4-8.2 [facility] Comment on above: Performed By: #### L 500.3400, L500.4100 ####[facility] [address] [place], [address] Internal Medicine Office Vis iton 02-04-2024 Internal Medicine Office Visit [facility] [address] [place] [address] OFFICE VISIT Date of Service: 02/04/24 MR#: [id number] Acct: [id number] Name: CLIFFNAKIAARTURO P Rep #: [id number] : 1945 Provider: Dr. 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 Is patient in pain?: No Allergies niacin (From [employer] [facility]-Release) Allergy (Verified 02/04/24 15:46) Extreme Itching cyclobenzaprine Adverse Reaction (Unknown, Verified 02/04/24 15:46) Heart feels like wants to stop Medications ???Medication ???Instructions ???Recorded ???Confirmed ???Type coenzyme [id number]-R-rvvhiejpu 100 mg-20 1 ea PO DAILY 03/25/13 02/04/24 History mg capsule multivitamin with folic acid 400 1 tab PO DAILY 03/25/13 02/04/24 History mcg tablet omega-3 fatty acids 1,000 mg 1,000 mg PO DAILY 08/20/18 02/04/24 History capsule aspirin 81 mg chewable tablet 81 mg PO DAILY #90 tabs 08/15/20 02/04/24 Rx clopidogrel 75 mg tablet See Rx Instructions .Route 06/24/23 02/04/24 Rx .COMPLEX #90 tabs atorvastatin 80 mg tablet See Rx Instructions .Route 07/04/23 02/04/24 Rx .COMPLEX #90 tabs lisinopril 10 mg tablet 10 mg PO BID #180 tabs 07/04/23 02/04/24 Rx metoprolol tartrate 50 mg tablet 50 mg PO BID #180 tabs 07/04/23 02/04/24 Rx nitroglycerin 0.4 mg sublingual 0.4 mg sublingual Q5-15M PRN chest 07/04/23 02/04/24 Rx tablet (Nitrostat) pain #25 tabs benzonatate 200 mg capsule 200 mg PO TID PRN cough #20 caps 01/13/24 02/04/24 Rx dexamethasone 6 mg tablet 6 mg PO DAILY #5 tabs 01/13/24 02/04/24 Rx magnesium 200 mg tablet 200 mg PO QDAY 01/13/24 02/04/24 History amlodipine 2.5 mg tablet 2.5 mg PO DAILY #90 tabs 01/21/24 02/04/24 Rx pregabalin 50 mg capsule 50 mg PO QHS PRN neck pain #90 caps 02/04/24 02/04/24 Rx Have you fallen in the past year?: No Nurse's Note: States he has been getting high readings at home, and it will not seem to come down. States that he had covid and was on paxlovid and feels that may have contributed to the rise. Was dx'd on 01/13/24. States he had cuff checked for accurancy a couple months ago here in office and all checked out. [facility] Medical History Right shoulder strain Scabies Thyroid goiter Back pain due to injury Family history of colon cancer Seborrheic keratoses Cervical disc disease Cervical cord compression with myelopathy Painful neck Swallowing problem Chronic back pain Nonrheumatic mitral (valve) prolapse Essential (primary) hypertension Back pain Obstructive sleep apnea GERD (gastroesophageal reflux disease) Atherosclerosis of coronary artery of [place] heart without angina pectoris Hyperlipidemia Surgical History History of orthopedic surgery History of facial surgery History of shoulder surgery H/O right knee surgery History of left heart catheterization (11/19/21) History of coronary artery stent placement (05/16/10) Family History Father CAD (coronary artery disease) Diabetes Heart disease Myocardial infarction Hypertension Mother Heart disease Diabetes CVA (cerebral vascular accident) Sister Breast cancer Colon cancer Brother Colon cancer Social History household members: spouse housing: house current occupational status: retired Smoking Status: Former smoker how long ago did patient quit smokin alcohol intake: former substance use type: does not use what type of physical activity do you participate in: walking and bicycling frequency: daily seatbelt use: always do you feel safe at home: Yes HPI HPI Details: ARTURO CORONADO, is a 78 M who presents to the office today for concerns about his blood pressure being elevated. Since he had COVID and took Paxlovid on 2 occasions he is woken up in the evening and felt like his heart was pounding and his blood pressure was moderately elevated. When I mean moderately elevated I mean about 150/84. Otherwise he feels well. ROS Const Constitutional: No body ache, chills, excessive sweating, fatigue, fever(s), frequent falls, headache(s), snoring, weakness, sleep problems or change in appetite Eyes Eyes: (more content not included)... Normal [facility] Visit Reporton 0 01-13-2024 Urgent Care Visit Report [facility] [address], [address] [place], [place] [address] OFFICE VISIT Date of Service: 01/13/24 MR#: [id number] Acct: [id number] Name: ARTURO CORONADO Rep #: [id number] : 1945 Provider: SEGUN Hi Age/Sex: 78/M Location: [facility] Status: Signed Intake Vital Signs 10/02/23 13:34 01/13/24 14:00 Height 5 ft 11 in 5 ft 11 in Weight: 173 lb 4 oz BMI 24.1 BP 110/60 Pulse 70 Temp 101.1 F H Temp Source Temporal Pulse Oximetry (%) 98 Oxygen Delivery Method room air Intake Visit Reasons: FEVER COUGH CHILLS Allergies niacin (From [employer] Extended-Release) Allergy (Verified 10/08/23 13:12) Extreme Itching cyclobenzaprine Adverse Reaction (Unknown, Verified 10/08/23 13:12) Heart feels like wants to stop Medications ???Medication ???Instructions ???Recorded ???Confirmed ???Type coenzyme Q00-H-wcmredwet 100 mg-20 1 ea PO DAILY 03/25/13 01/13/24 History mg capsule multivitamin with folic acid 400 1 tab PO DAILY 03/25/13 01/13/24 History mcg tablet omega-3 fatty acids 1,000 mg 1,000 mg PO DAILY 08/20/18 01/13/24 History capsule aspirin 81 mg chewable tablet 81 mg PO DAILY #90 tabs 08/15/20 01/13/24 Rx clopidogrel 75 mg tablet See Rx Instructions .Route 06/24/23 01/13/24 Rx .COMPLEX #90 tabs atorvastatin 80 mg tablet See Rx Instructions .Route 07/04/23 01/13/24 Rx .COMPLEX #90 tabs lisinopril 10 mg tablet 10 mg PO BID #180 tabs 07/04/23 01/13/24 Rx metoprolol tartrate 50 mg tablet 50 mg PO BID #180 tabs 07/04/23 01/13/24 Rx nitroglycerin 0.4 mg sublingual 0.4 mg sublingual Q5-15M PRN chest 07/04/23 01/13/24 Rx tablet (Nitrostat) pain #25 tabs pregabalin 50 mg capsule 50 mg PO QHS PRN neck pain 07/04/23 01/13/24 History amlodipine 2.5 mg tablet 2.5 mg PO DAILY #90 tabs 07/29/23 01/13/24 Rx benzonatate 200 mg capsule 200 mg PO TID PRN cough #20 caps 01/13/24 01/13/24 Rx dexamethasone 6 mg tablet 6 mg PO DAILY #5 tabs 01/13/24 01/13/24 Rx magnesium 200 mg tablet 200 mg PO QDAY 01/13/24 01/13/24 History Have you fallen in the past year?: No PFSH Medical History Right shoulder strain Scabies Thyroid goiter Back pain due to injury Family history of colon cancer Seborrheic keratoses Cervical disc disease Cervical cord compression with myelopathy Painful neck Swallowing problem Chronic back pain Nonrheumatic mitral (valve) prolapse Essential (primary) hypertension Back pain Obstructive sleep apnea GERD (gastroesophageal reflux disease) Atherosclerosis of coronary artery of [place] heart without angina pectoris Hyperlipidemia Surgical History History of orthopedic surgery History of facial surgery History of shoulder surgery H/O right knee surgery History of left heart catheterization (11/19/21) History of coronary artery stent placement (05/16/10) Family History Father CAD (coronary artery disease) Diabetes Heart disease Myocardial infarction Hypertension Mother Heart disease Diabetes CVA (cerebral vascular accident) Sister Breast cancer Colon cancer Brother Colon cancer Social History household members: spouse housing: house current occupational status: retired Smoking Status: Former smoker how long ago did patient quit smokin alcohol intake: former substance use type: does not use what type of physical activity do you participate in: walking and bicycling frequency: daily seatbelt use: always do you feel safe at home: Yes HPI HPI Details: ARTURO CORONADO, is a 78 M who presents to the office today for 48-hour history of fever, chills, cough, headache, myalgias, fatigue, sore throat, congestion/runny nose, nausea/diarrhea. No complaints of chest pain or shortness of breath or dyspnea on exertion. No wwav-cem-skdmqqi products taken to assist. Several close contacts with similar URI complaints. No other associated symptoms and no alleviating/aggravat ing factors. ROS Const Constitutional: No other (as above) Exam Const General: cooperative, healthy appearing and no acute distress Nutritional Appearance: average body habitus Orientation: alert, awake and oriented x3 HENMT Head: normal to inspection Ears: hearing grossly normal bilaterally, external ears normal, TM's normal bilaterally and EAC's normal Nose: external nose normal, nares normal, septum normal and nasal discharge clear Face and sinus: normal facial exam, sinuses nontender and face symmetric Mouth: oral mucosae normal, lip normal, tongue normal and oropharynx normal Throat: posterior oropharynx normal, tonsils normal, uvula midli (more content not included)... Normal [facility] Serum or plasma thyroid stim ulating hormone (TSH) measurement (units/volume)Ordered By: Bib Franz on 07-11-2023 TSH Qn 2.43 uIU/mL 0.358-3.74 [facility] Thin prep Papanicolaou smear with manual screeningOrdered By: Bib Franz on 07-11-2023 Thin prep Papanicolaou smear with manual screening 0.93 ng/dL 0.76-1.46 [facility] Basophil percentageOrdered B y: Adam Amara on 07-02-2023 Bilirubin [Mass/Vol] 1.20 mg/dL 0.20-1.00 [facility] Comment on above: For patients on eltr ombopag therapy, use of Dimension [place] TBIL is not recommended. Cholesterol [Mass/Vol] 139 mg/dL <200 [facility] Comment on above: <200 mg/dL Desirable 200-240 mg/dL Borderline >240 mg/dL High Risk Protein [Mass/Vol] 6.7 g/dL 6.4-8.2 [facility] Triglyceride [Mass/Vol] 64 mg/dL <199 [facility] Comment on above: The drugs N-Acetylcy steine and Metamizole may falsely depress this assay.Serum Triglycerides Reference Interval Normal <150 mg/dL Borderline high 150 - 199 mg/dL High 200 - 499 mg/dL Very High > or = 500 mg/dL Direct bilirubinOrdered By: Adam Maloney on 07-02-2023 Bilirubin.direct [Mass/Vol] 0.31 mg/dL 0.00-0.30 [facility] Laboratory - Chemistry and C hemistry - challengeOrdered By: Adam Maloney on 07-02-2023 ALP [Catalytic activity/Vol] 76 U/L 45-117 [facility] ALT [Catalytic activity/Vol] 44 U/L 16-61 [facility] Cholesterol in HDL [Mass/Vol] 46 mg/dL >40 [facility] Comment on above: The drugs N-Acetylcy steine and Metamizole may falsely depress this assay. Reference Range HDL <40 mg/dL Low HDL Cholesterol HDL >or= 60 mg/dL High HDL Cholesterol Cholesterol in LDL [Mass/Vol] 80 mg/dL 0-130 [facility] Globulin (S) [Mass/Vol] 2.9 g/dL 2.2-4.2 [facility] No Panel InformationOrdered By: Adam Maloney on 07-02-2023 VLDL Cholesterol 13 mg/dL 5-40 [facility] Thin prep Papanicolaou smear with manual screeningOrdered By: Adam Maloney on 07-02-2023 Thin prep Papanicolaou smear with manual screening 3.8 g/dL 3.2-5.0 [facility] Thin prep Papanicolaou smear with manual screening 35 U/L 15-37 [facility] No Panel Informationon 04-24 Influenza Types A,B Rapid (Clinic) Negative [facility] POC SARS CoV-2 Antigen Negative [facility] Basophil percentageOrdered B y: Adam Maloney on 11-13-2022 Bilirubin [Mass/Vol] 1.30 mg/dL 0.20-1.00 [facility] Comment on above: For patients on eltr ombopag therapy, use of Dimension [place] TBIL is not recommended. Cholesterol [Mass/Vol] 122 mg/dL <200 [facility] Comment on above: <200 mg/dL Desirable 200-240 mg/dL Borderline >240 mg/dL High Risk Protein [Mass/Vol] 6.9 g/dL 6.4-8.2 [facility] Triglyceride [Mass/Vol] 46 mg/dL <199 [facility] Comment on above: The drugs N-Acetylcy steine and Metamizole may falsely depress this assay.Serum Triglycerides Reference Interval Normal <150 mg/dL Borderline high 150 - 199 mg/dL High 200 - 499 mg/dL Very High > or = 500 mg/dL Direct bilirubinOrdered By: Adam Maloney on 11-13-2022 Bilirubin.direct [Mass/Vol] 0.32 mg/dL 0.00-0.30 [facility] - Chemistry and C hemistry - challengeOrdered By: Adam Maloney on 11-13-2022 ALP [Catalytic activity/Vol] 83 U/L 45-117 [facility] ALT [Catalytic activity/Vol] 41 U/L 16-61 [facility] Globulin (S) [Mass/Vol] 3.2 g/dL 2.2-4.2 [facility] No Panel InformationOrdered By: Adam Maloney on 11-13-2022 Prostate Specific Antigen Screen 2.24 ng/mL 0.00-4.00 [facility] Comment on above: This test was perfor med using the TPSA assay method [facility]. Values obtained with differentassay methods cannot be used interchangably.When changing PSA assays in the course of monitoring apatient, additional sequential testing should be carriedout to confirm baseline values. Serum or plasma albumin phillip urement (mass/volume)Ordered By: Adam Maloney on 11-13-2022 Albumin [Mass/Vol] 3.7 g/dL 3.2-5.0 [facility] Serum or plasma cholesterol in HDL measurement (mass/volume)Ordered By: Adam Maloney on 11-13-2022 Cholesterol in HDL [Mass/Vol] 41 mg/dL >40 [facility] Comment on above: The drugs N-Acetylcy steine and Metamizole may falsely depress this assay. Reference Range HDL <40 mg/dL Low HDL Cholesterol HDL >or= 60 mg/dL High HDL Cholesterol Serum or plasma cholesterol in VLDL measurement (mass/volume)Ordered By: Adam Maloney on 11-13-2022 Cholesterol in VLDL [Mass/Vol] 9 mg/dL 5-40 [facility] Serum or plasma low density lipoprotein (LDL) cholesterol measurement (mass/volume)Ordered By: Macomb Amara on 11-13-2022 Cholesterol in LDL [Mass/Vol] 72 mg/dL 0-130 [facility] Thin prep Papanicolaou smear with manual screeningOrdered By: Macomb Amara on 11-13-2022 Thin prep Papanicolaou smear with manual screening 40 U/L 15-37 [facility] Absolute lymphocyte countOrd ered By: Fer Carr on 09-20-2022 Lymphocytes Auto (Unsp spec) [#/Vol] 1.55 10*3/uL 0.83-4.51 [facility] Basophil percentageOrdered B y: Fer Sumnereugenio on 09-20-2022 Basophils/100 WBC (Bld) 0.9 % 0-1 [facility] Bilirubin [Mass/Vol] 0.90 mg/dL 0.20-1.00 [facility] Comment on above: For patients on eltr ombopag therapy, use of Dimension [place] TBIL is not recommended. Chloride [Moles/Vol] 108 mmol/L 98-107 [facility] Eosinophils/100 WBC (Bld) 4.1 % 0-5 [facility] Glucose [Mass/Vol] 109 mg/dL 74-106 [facility] Comment on above: Fasting Glucose resu lt from 100 to 125 mg/dL suggests IMPAIRED HOMEOSTASIS per A.D.A. criteria. Neutrophils (Bld) [#/Vol] 3.2 10*3/uL 2.0-7.7 [facility] Neutrophils/100 WBC (Bld) 58.0 % 47-70 [facility] Potassium [Moles/Vol] 4.2 mmol/L 3.5-5.1 [facility] Protein [Mass/Vol] 7.0 g/dL 6.4-8.2 [facility] Sodium [Moles/Vol] 139 mmol/L 136-145 [facility] WBC (Bld) [#/Vol] 5.6 10*3/uL 4.4-11.0 [facility] Basophil percentage 0 SEEN /hpf 0-5 [facility] Bilirubin Test strip Ql (U)O rdered By: Fer Carr on 09-20-2022 Bilirubin Ql (U) Negative Negative [facility] Blood erythrocytes count (nu mber/volume)Ordered By: Fer Carr on 09-20-2022 RBC (Bld) [#/Vol] 5.15 10*6/uL 4.6-6.2 [facility] Blood hemoglobin measurement (mass/volume)Ordered By: Fer Carr on 09-20-2022 Hemoglobin (Bld) [Mass/Vol] 16.0 g/dL 13.0-16.5 [facility] Blood lymphocytes/100 leukoc ytesOrdered By: Fer aCrr on 09-20-2022 Lymphocytes/100 WBC (Bld) 27.7 % 19-41 [facility] Blood monocytes/100 leukocyt esOrdered By: Fer Carr on 09-20-2022 Monocytes/100 WBC (Bld) 9.1 % 0-10 [facility] Blood platelet mean volumeOr dered By: Fer Carr on 09-20-2022 Platelet mean volume (Bld) [Entitic vol] 10.1 fL 6.2-12.0 [facility] Determination of erythrocyte mean corpuscular volume (MCV)Ordered By: Fer Carr on 09-20-2022 MCV (RBC) [Entitic vol] 90.9 fL 80-94 [facility] Hematocrit Auto (Bld) [Volum e fraction]Ordered By: Fer Carr on 09-20-2022 Hematocrit (Bld) [Volume fraction] 46.8 % 40-54 [facility] Ketones Test strip Ql (U)Ord ered By: Fer Carr on 09-20-2022 Ketones Ql (U) Negative Negative [facility] Laboratory - Chemistry and C hemistry - challengeOrdered By: Fer Carr on 09-20-2022 ALP [Catalytic activity/Vol] 79 U/L 45-117 [facility] ALT [Catalytic activity/Vol] 45 U/L 16-61 [facility] CO2 [Moles/Vol] 25.0 mmol/L 21.0-32.0 [facility] Globulin (S) [Mass/Vol] 3.4 g/dL 2.2-4.2 [facility] Urea nitrogen/Creatinine [Mass ratio] 14.7 mg/mg 10-20 [facility] Laboratory - Hematology and Cell countsOrdered By: Fer Carr on 09-20-2022 Erythrocyte distribution width (RBC) [Entitic vol] 43.3 fL 35.1-43.9 [facility] Erythrocyte distribution width (RBC) [Ratio] 13.1 % 11.6-14.6 [facility] Immature granulocytes/100 WBC (Bld) 0.200 % 0.0-0.9 [facility] Comment on above: IG% - Immature Granu locytes (promyelocytes, myelocytes and metamyelocytes) > 1% indicates that a LEFT SHIFT is Present. MCH (RBC) [Entitic mass] 31.1 pg 27.0-32.0 [facility] Nucleated RBC/100 WBC (Bld) [Ratio] 0 % 0-5 [facility] MCHC Auto (RBC) [Mass/Vol]Or dered By: Fer Carr on 09-20-2022 MCHC (RBC) [Mass/Vol] 34.2 g/dL 32-36 [facility] Mucus LM Ql (Urine sed)Order ed By: Fer Carr on 09-20-2022 Mucus Ql (Urine sed) 0 SEEN /hpf [facility] Nitrite Test strip Ql (U)Ord ered By: Fer Carr on 09-20-2022 Nitrite Ql (U) Negative Negative [facility] No Panel InformationOrdered By: Fer Carr on 09-20-2022 Estimated Creatinine Clearance Calc 77.25 ml/min [facility] Estimated GFR (MDRD) Amer 108 mL/min >60 [facility] Comment on above: GFR Calc Estimated GFR (MDRD) Non-Af Amer 89 mL/min >60 [facility] Comment on above: Non- GFR Calc Platelets bldOrdered By: Megan Carr on 09-20-2022 Platelets (Bld) [#/Vol] 187 10*3/uL 150-450 [facility] Protein Test strip Ql (U)Ord ered By: Fer Carr on 09-20-2022 Protein Ql (U) Negative Negative [facility] Serum or plasma albumin phillip urement (mass/volume)Ordered By: Fer Carr on 09-20-2022 Albumin [Mass/Vol] 3.6 g/dL 3.2-5.0 [facility] Serum or plasma albumin/glob ulin mass ratioOrdered By: Fer Carr on 09-20-2022 Albumin/Globulin [Mass ratio] 1.1 {ratio} 0.9-2.4 [facility] Serum or plasma calcium phillip urement (mass/volume)Ordered By: Fer Carr on 09-20-2022 Calcium [Mass/Vol] 9.0 mg/dL 8.5-10.1 [facility] Serum or plasma creatinine m easurement (mass/volume)Ordered By: Fer Carr on 09-20-2022 Creatinine [Mass/Vol] 0.88 mg/dL 0.70-1.30 [facility] Comment on above: The validity of the calculated GFR & GFRAA in patients over 70 years has not been determined. Clinical correlation is essential. Serum or plasma urea nitroge n measurement (mass/volume)Ordered By: Fer Carr on 09-20-2022 Urea nitrogen [Mass/Vol] 13 mg/dL 7-18 [facility] Squamous epithelial cells de tection in urine sediment by light microscopyOrdered By: Fer Carr on 09-20-2022 Epithelial cells.squamous LM Ql (Urine sed) 0 SEEN /hpf 0-5 [facility] Thin prep Papanicolaou smear with manual screeningOrdered By: Fer Carr on 09-20-2022 Thin prep Papanicolaou smear with manual screening 42 U/L 15-37 [facility] Thin prep Papanicolaou smear with manual screening 6 5-15 [facility] Urine blood detectionOrdered By: Fer Carr on 09-20-2022 RBC Ql (U) Negative Negative [facility] RBC Ql (U) 0 SEEN /hpf 0-5 [facility] Urine clarityOrdered By: Megan Carr on 09-20-2022 Clarity (U) Clear Clear [facility] Urine color determinationOrd ered By: Fer Carr on 09-20-2022 Color (U) Yellow Yellow [facility] Urine glucose detectionOrder ed By: Fer Carr on 09-20-2022 Glucose Ql (U) Normal mg/dl Normal [facility] Urine leukocyte esterase det ection by dipstickOrdered By: Fer Carr on 09-20-2022 Leukocyte esterase Test strip Ql (U) Negative Negative [facility] Urine pHOrdered By: Fer myers on 09-20-2022 pH (U) 6.0 [pH] 5.0 - 8.0 [facility] Urine sediment bacteria coun t by microscopy (number/high power field)Ordered By: Fer Carr on 09-20-2022 Bacteria LM.HPF (Urine sed) [#/Area] 0 /[HPF] None Seen [facility] Urine specific gravity measu rementOrdered By: Fer Carr on 09-20-2022 Specific gravity (U) [Rel density] 1.015 1.002-1.030 [facility] Urobilinogen Auto test strip Ql (U)Ordered By: Fer Carr on 09-20-2022 Urobilinogen Ql (U) Normal mg/dl Normal [facility] Absolute lymphocyte counton 04-17-2022 Lymphocytes Auto (Unsp spec) [#/Vol] 2.00 10*3/uL 0.83-4.51 [facility] Work Phone: Basophil percentageon 2021 Basophils/100 WBC (Bld) 1.0 % 0-1 [facility] Work Phone: Bilirubin [Mass/Vol] 1.10 mg/dL 0.20-1.00 [facility] Work Phone: Comment on above: For patients on eltr ombopag therapy, use of Dimension [place] TBIL is not recommended. Chloride [Moles/Vol] 108 mmol/L 98-107 [facility] Work Phone: Cholesterol [Mass/Vol] 145 mg/dL <200 [facility] Work Phone: Comment on above: <200 mg/dL Desirable 200-240 mg/dL Borderline >240 mg/dL High Risk Eosinophils/100 WBC (Bld) 8.1 % 0-5 [facility] Work Phone: Glucose [Mass/Vol] 103 mg/dL 74-106 [facility] Work Phone: Comment on above: Fasting Glucose resu lt from 100 to 125 mg/dL suggests IMPAIRED HOMEOSTASIS per A.D.A. criteria. Neutrophils (Bld) [#/Vol] 3.0 10*3/uL 2.0-7.7 [facility] Work Phone: Neutrophils/100 WBC (Bld) 48.4 % 47-70 [facility] Work Phone: Potassium [Moles/Vol] 4.7 mmol/L 3.5-5.1 [facility] Work Phone: Protein [Mass/Vol] 6.7 g/dL 6.4-8.2 [facility] Work Phone: Sodium [Moles/Vol] 141 mmol/L 136-145 [facility] Work Phone: Triglyceride [Mass/Vol] 131 mg/dL <199 [facility] Work Phone: Comment on above: The drugs N-Acetylcy steine and Metamizole may falsely depress this assay.Serum Triglycerides Reference Interval Normal <150 mg/dL Borderline high 150 - 199 mg/dL High 200 - 499 mg/dL Very High > or = 500 mg/dL WBC (Bld) [#/Vol] 6.1 10*3/uL 4.4-11.0 [facility] Work Phone: Blood erythrocytes count (nu mber/volume)on 04-17-2022 RBC (Bld) [#/Vol] 5.25 10*6/uL 4.6-6.2 [facility] Work Phone: Blood hemoglobin measurement (mass/volume)on 04-17-2022 Hemoglobin (Bld) [Mass/Vol] 16.3 g/dL 13.0-16.5 [facility] Work Phone: Blood lymphocytes/100 leukoc yteson 04-17-2022 Lymphocytes/100 WBC (Bld) 32.6 % 19-41 [facility] Work Phone: Blood monocytes/100 leukocyt eson 04-17-2022 Monocytes/100 WBC (Bld) 9.6 % 0-10 [facility] Work Phone: Blood platelet mean volumeon 04-17-2022 Platelet mean volume (Bld) [Entitic vol] 10.9 fL 6.2-12.0 [facility] Work Phone: Determination of erythrocyte mean corpuscular volume (MCV)on 04-17-2022 MCV (RBC) [Entitic vol] 93.1 fL 80-94 [facility] Work Phone: Direct bilirubinon Bilirubin.direct [Mass/Vol] 0.28 mg/dL 0.00-0.30 [facility] Work Phone: Hematocrit Auto (Bld) [Volum e fraction]on 04-17-2022 Hematocrit (Bld) [Volume fraction] 48.9 % 40-54 [facility] Work Phone: Laboratory - Chemistry and C hemistry - challengeon 04-17-2022 ALP [Catalytic activity/Vol] 79 U/L 45-117 [facility] Work Phone: ALT [Catalytic activity/Vol] 50 U/L 16-61 [facility] Work Phone: CO2 [Moles/Vol] 27.0 mmol/L 21.0-32.0 [facility] Work Phone: Globulin (S) [Mass/Vol] 3.0 g/dL 2.2-4.2 [facility] Work Phone: Urea nitrogen/Creatinine [Mass ratio] 15.2 mg/mg 10-20 [facility] Work Phone: Laboratory - Hematology and Cell countson 04-17-2022 Erythrocyte distribution width (RBC) [Entitic vol] 44.7 fL 35.1-43.9 [facility] Work Phone: Erythrocyte distribution width (RBC) [Ratio] 13.0 % 11.6-14.6 [facility] Work Phone: Immature granulocytes/100 WBC (Bld) 0.300 % 0.0-0.9 [facility] Work Phone: Comment on above: IG% - Immature Granu locytes (promyelocytes, myelocytes and metamyelocytes) > 1% indicates that a LEFT SHIFT is Present. MCH (RBC) [Entitic mass] 31.0 pg 27.0-32.0 [facility] Work Phone: Nucleated RBC/100 WBC (Bld) [Ratio] 0 % 0-5 [facility] Work Phone: MCHC Auto (RBC) [Mass/Vol]on 04-17-2022 MCHC (RBC) [Mass/Vol] 33.3 g/dL 32-36 [facility] Work Phone: No Panel Informationon 04-17 Estimated GFR (MDRD) Amer 95 mL/min >60 [facility] Work Phone: Comment on above: GFR Calc Estimated GFR (MDRD) Non-Af Amer 78 mL/min >60 [facility] Work Phone: Comment on above: Non- GFR Calc Platelets bldon 04-17-2022 Platelets (Bld) [#/Vol] 195 10*3/uL 150-450 [facility] Work Phone: Serum or plasma albumin phillip urement (mass/volume)on 04-17-2022 Albumin [Mass/Vol] 3.7 g/dL 3.2-5.0 [facility] Work Phone: Serum or plasma albumin/glob ulin mass ratioon 04-17-2022 Albumin/Globulin [Mass ratio] 1.2 {ratio} 0.9-2.4 [facility] Work Phone: Serum or plasma calcium phillip urement (mass/volume)on 04-17-2022 Calcium [Mass/Vol] 9.3 mg/dL 8.5-10.1 [facility] Work Phone: Serum or plasma cholesterol in HDL measurement (mass/volume)on 04-17-2022 Cholesterol in HDL [Mass/Vol] 45 mg/dL >40 [facility] Work Phone: Comment on above: The drugs N-Acetylcy steine and Metamizole may falsely depress this assay. Reference Range HDL <40 mg/dL Low HDL Cholesterol HDL >or= 60 mg/dL High HDL Cholesterol Serum or plasma cholesterol in VLDL measurement (mass/volume)on 04-17-2022 Cholesterol in VLDL [Mass/Vol] 26 mg/dL 5-40 [facility] Work Phone: Serum or plasma creatinine m easurement (mass/volume)on 04-17-2022 Creatinine [Mass/Vol] 0.99 mg/dL 0.70-1.30 [facility] Work Phone: Comment on above: The validity of the calculated GFR & GFRAA in patients over 70 years has not been determined. Clinical correlation is essential. Serum or plasma low density lipoprotein (LDL) cholesterol measurement (mass/volume)on 04-17-2022 Cholesterol in LDL [Mass/Vol] 74 mg/dL 0-130 [facility] Work Phone: Serum or plasma urea nitroge n measurement (mass/volume)on 04-17-2022 Urea nitrogen [Mass/Vol] 15 mg/dL 7-18 [facility] Work Phone: Thin prep Papanicolaou smear with manual screeningon 04-17-2022 Thin prep Papanicolaou smear with manual screening 36 U/L 15-37 [facility] Work Phone: Thin prep Papanicolaou smear with manual screening 6 5-15 [facility] Work Phone: Absolute lymphocyte counton 01-10-2022 Lymphocytes Auto (Unsp spec) [#/Vol] 2.22 10*3/uL 0.83-4.51 [facility] Work Phone: Basophil percentageon 2021 Basophils/100 WBC (Bld) 0.7 % 0-1 [facility] Work Phone: Chloride [Moles/Vol] 109 mmol/L 98-107 [facility] Work Phone: Eosinophils/100 WBC (Bld) 3.8 % 0-5 [facility] Work Phone: Glucose [Mass/Vol] 118 mg/dL 74-106 [facility] Work Phone: Comment on above: Fasting Glucose resu lt from 100 to 125 mg/dL suggests IMPAIRED HOMEOSTASIS per A.D.A. criteria. Neutrophils (Bld) [#/Vol] 3.7 10*3/uL 2.0-7.7 [facility] Work Phone: Neutrophils/100 WBC (Bld) 54.7 % 47-70 [facility] Work Phone: Potassium [Moles/Vol] 3.7 mmol/L 3.5-5.1 [facility] Work Phone: Sodium [Moles/Vol] 142 mmol/L 136-145 [facility] Work Phone: WBC (Bld) [#/Vol] 6.8 10*3/uL 4.4-11.0 [facility] Work Phone: Blood erythrocytes count (nu mber/volume)on 01-10-2022 RBC (Bld) [#/Vol] 5.04 10*6/uL 4.6-6.2 [facility] Work Phone: Blood hemoglobin measurement (mass/volume)on 01-10-2022 Hemoglobin (Bld) [Mass/Vol] 15.7 g/dL 13.0-16.5 [facility] Work Phone: Blood lymphocytes/100 leukoc yteson 01-10-2022 Lymphocytes/100 WBC (Bld) 32.7 % 19-41 [facility] Work Phone: Blood monocytes/100 leukocyt eson 01-10-2022 Monocytes/100 WBC (Bld) 8.0 % 0-10 [facility] Work Phone: Blood platelet mean volumeon 01-10-2022 Platelet mean volume (Bld) [Entitic vol] 10.5 fL 6.2-12.0 [facility] Work Phone: Determination of erythrocyte mean corpuscular volume (MCV)on 01-10-2022 MCV (RBC) [Entitic vol] 91.9 fL 80-94 [facility] Work Phone: Hematocrit Auto (Bld) [Volum e fraction]on 01-10-2022 Hematocrit (Bld) [Volume fraction] 46.3 % 40-54 [facility] Work Phone: Laboratory - Chemistry and C hemistry - challengeon 01-10-2022 CO2 [Moles/Vol] 26.0 mmol/L 21.0-32.0 [facility] Work Phone: Urea nitrogen/Creatinine [Mass ratio] 16.7 mg/mg 10-20 [facility] Work Phone: Laboratory - Hematology and Cell countson 01-10-2022 Erythrocyte distribution width (RBC) [Entitic vol] 43.2 fL 35.1-43.9 [facility] Work Phone: Erythrocyte distribution width (RBC) [Ratio] 13.0 % 11.6-14.6 [facility] Work Phone: Immature granulocytes/100 WBC (Bld) 0.100 % 0.0-0.9 [facility] Work Phone: Comment on above: IG% - Immature Granu locytes (promyelocytes, myelocytes and metamyelocytes) > 1% indicates that a LEFT SHIFT is Present. MCH (RBC) [Entitic mass] 31.2 pg 27.0-32.0 [facility] Work Phone: Nucleated RBC/100 WBC (Bld) [Ratio] 0 % 0-5 [facility] Work Phone: MCHC Auto (RBC) [Mass/Vol]on 01-10-2022 MCHC (RBC) [Mass/Vol] 33.9 g/dL 32-36 [facility] No Panel Informationon 01-10 Estimated Creatinine Clearance Calc 65.86 ml/min [facility] Work Phone: Estimated GFR (MDRD) Amer 86 mL/min >60 [facility] Work Phone: Comment on above: GFR Calc Estimated GFR (MDRD) Non-Af Amer 71 mL/min >60 [facility] Work Phone: Comment on above: Non- GFR Calc Troponin I High Sensitivity 12 pg/mL 3.0-78.0 [facility] Work Phone: Comment on above: Please Note: New Afsaneh t Units and Gender Specific Reference Ranges. For more information see Policy Stat Procedure [place] High Sensitivity Troponin (TNIH) and attachments. Platelets bldon 01-10-2022 Platelets (Bld) [#/Vol] 177 10*3/uL 150-450 [facility] Work Phone: Serum or plasma calcium phillip urement (mass/volume)on 01-10-2022 Calcium [Mass/Vol] 9.1 mg/dL 8.5-10.1 [facility] Work Phone: Serum or plasma creatinine m easurement (mass/volume)on 01-10-2022 Creatinine [Mass/Vol] 1.08 mg/dL 0.70-1.30 [facility] Work Phone: Comment on above: The validity of the calculated GFR & GFRAA in patients over 70 years has not been determined. Clinical correlation is essential. Serum or plasma urea nitroge n measurement (mass/volume)on 01-10-2022 Urea nitrogen [Mass/Vol] 18 mg/dL 7-18 [facility] Work Phone: Thin prep Papanicolaou smear with manual screeningon 01-10-2022 Thin prep Papanicolaou smear with manual screening 7 5-15 [facility] Work Phone: Absolute lymphocyte counton 11-14-2021 Lymphocytes Auto (Unsp spec) [#/Vol] 2.09 10*3/uL 0.83-4.51 [facility] Work Phone: Basophil percentageon 2021 Basophils/100 WBC (Bld) 1.1 % 0-1 [facility] Work Phone: Chloride [Moles/Vol] 108 mmol/L 98-107 [facility] Work Phone: Eosinophils/100 WBC (Bld) 5.3 % 0-5 [facility] Work Phone: Glucose [Mass/Vol] 112 mg/dL 74-106 [facility] Work Phone: Comment on above: Fasting Glucose resu lt from 100 to 125 mg/dL suggests IMPAIRED HOMEOSTASIS per A.D.A. criteria. Neutrophils (Bld) [#/Vol] 3.6 10*3/uL 2.0-7.7 [facility] Work Phone: Neutrophils/100 WBC (Bld) 54.7 % 47-70 [facility] Work Phone: Potassium [Moles/Vol] 4.2 mmol/L 3.5-5.1 [facility] Work Phone: Sodium [Moles/Vol] 140 mmol/L 136-145 [facility] Work Phone: WBC (Bld) [#/Vol] 6.6 10*3/uL 4.4-11.0 [facility] Work Phone: Blood erythrocytes count (nu mber/volume)on 11-14-2021 RBC (Bld) [#/Vol] 5.13 10*6/uL 4.6-6.2 [facility] Work Phone: Blood hemoglobin measurement (mass/volume)on 11-14-2021 Hemoglobin (Bld) [Mass/Vol] 16.0 g/dL 13.0-16.5 [facility] Work Phone: Blood lymphocytes/100 leukoc yteson 11-14-2021 Lymphocytes/100 WBC (Bld) 31.8 % 19-41 [facility] Work Phone: Blood monocytes/100 leukocyt eson 11-14-2021 Monocytes/100 WBC (Bld) 6.8 % 0-10 [facility] Work Phone: Blood platelet mean volumeon 11-14-2021 Platelet mean volume (Bld) [Entitic vol] 10.6 fL 6.2-12.0 [facility] Work Phone: Determination of erythrocyte mean corpuscular volume (MCV)on 11-14-2021 MCV (RBC) [Entitic vol] 92.4 fL 80-94 [facility] Work Phone: Hematocrit Auto (Bld) [Volum e fraction]on 11-14-2021 Hematocrit (Bld) [Volume fraction] 47.4 % 40-54 [facility] Work Phone: INR in Blood by Coagulation assayon 11-14-2021 INR Coag (Bld) [Relative time] 1.0 {INR} [facility] Work Phone: Laboratory - Chemistry and C hemistry - challengeon 11-14-2021 CO2 [Moles/Vol] 27.0 mmol/L 21.0-32.0 [facility] Work Phone: Urea nitrogen/Creatinine [Mass ratio] 13.2 mg/mg 10-20 [facility] Work Phone: Laboratory - Coagulationon 0 11-14-2021 aPTT Coag (Bld) [Time] 27.0 s 24.1-36.2 [facility] Work Phone: PT Coag (PPP) [Time] 13.3 s 11.7-14.9 [facility] Work Phone: Laboratory - Hematology and Cell countson 11-14-2021 Erythrocyte distribution width (RBC) [Entitic vol] 44.6 fL 35.1-43.9 [facility] Work Phone: Erythrocyte distribution width (RBC) [Ratio] 13.2 % 11.6-14.6 [facility] Work Phone: Immature granulocytes/100 WBC (Bld) 0.300 % 0.0-0.9 [facility] Work Phone: Comment on above: IG% - Immature Granu locytes (promyelocytes, myelocytes and metamyelocytes) > 1% indicates that a LEFT SHIFT is Present. MCH (RBC) [Entitic mass] 31.2 pg 27.0-32.0 [facility] Work Phone: Nucleated RBC/100 WBC (Bld) [Ratio] 0 % 0-5 [facility] Work Phone: MCHC Auto (RBC) [Mass/Vol]on 11-14-2021 MCHC (RBC) [Mass/Vol] 33.8 g/dL 32-36 [facility] Work Phone: No Panel Informationon 11-14 Estimated GFR (MDRD) Amer 88 mL/min >60 [facility] Work Phone: Comment on above: GFR Calc Estimated GFR (MDRD) Non-Af Amer 73 mL/min >60 [facility] Work Phone: Comment on above: Non- GFR Calc Platelets bldon 11-14-2021 Platelets (Bld) [#/Vol] 212 10*3/uL 150-450 [facility] Work Phone: Serum or plasma calcium phillip urement (mass/volume)on 11-14-2021 Calcium [Mass/Vol] 8.8 mg/dL 8.5-10.1 [facility] Work Phone: Serum or plasma creatinine m easurement (mass/volume)on 11-14-2021 Creatinine [Mass/Vol] 1.06 mg/dL 0.70-1.30 [facility] Work Phone: Comment on above: The validity of the calculated GFR & GFRAA in patients over 70 years has not been determined. Clinical correlation is essential. Serum or plasma urea nitroge n measurement (mass/volume)on 11-14-2021 Urea nitrogen [Mass/Vol] 14 mg/dL 7-18 [facility] Work Phone: Thin prep Papanicolaou smear with manual screeningon 11-14-2021 Thin prep Papanicolaou smear with manual screening 5 5-15 [facility] Work Phone: Basophil percentageon 2021 Bilirubin [Mass/Vol] 1.30 mg/dL 0.20-1.00 [facility] Work Phone: Comment on above: For patients on eltr ombopag therapy, use of Dimension [place] TBIL is not recommended. Cholesterol [Mass/Vol] 141 mg/dL <200 [facility] Work Phone: Comment on above: <200 mg/dL Desirable 200-240 mg/dL Borderline >240 mg/dL High Risk Protein [Mass/Vol] 7.0 g/dL 6.4-8.2 [facility] Work Phone: Triglyceride [Mass/Vol] 110 mg/dL <199 [facility] Work Phone: Comment on above: The drugs N-Acetylcy steine and Metamizole may falsely depress this assay.Serum Triglycerides Reference Interval Normal <150 mg/dL Borderline high 150 - 199 mg/dL High 200 - 499 mg/dL Very High > or = 500 mg/dL Direct bilirubinon 2 Bilirubin.direct [Mass/Vol] 0.32 mg/dL 0.00-0.30 [facility] Work Phone: Laboratory - Chemistry and C hemistry - challengeon 08-14-2021 ALP [Catalytic activity/Vol] 78 U/L 45-117 [facility] Work Phone: ALT [Catalytic activity/Vol] 47 U/L 16-61 [facility] Work Phone: Globulin (S) [Mass/Vol] 3.0 g/dL 2.2-4.2 [facility] Work Phone: Serum or plasma albumin phillip urement (mass/volume)on 08-14-2021 Albumin [Mass/Vol] 4.0 g/dL 3.2-5.0 [facility] Work Phone: Serum or plasma cholesterol in HDL measurement (mass/volume)on 08-14-2021 Cholesterol in HDL [Mass/Vol] 44 mg/dL >40 [facility] Work Phone: Comment on above: The drugs N-Acetylcy steine and Metamizole may falsely depress this assay. Reference Range HDL <40 mg/dL Low HDL Cholesterol HDL >or= 60 mg/dL High HDL Cholesterol Serum or plasma cholesterol in VLDL measurement (mass/volume)on 08-14-2021 Cholesterol in VLDL [Mass/Vol] 22 mg/dL 5-40 [facility] Work Phone: Serum or plasma low density lipoprotein (LDL) cholesterol measurement (mass/volume)on 08-14-2021 Cholesterol in LDL [Mass/Vol] 75 mg/dL 0-130 [facility] Work Phone: Thin prep Papanicolaou smear with manual screeningon 08-14-2021 Thin prep Papanicolaou smear with manual screening 36 U/L 15-37 [facility] Work Phone: Clinical Summary: HMSPatient IDon 03-25-2019 OOP [facility] Work Phone: Office Visit: New Complaint, Rm: 40on 03-25-2019 NEGATED: Highlighted rowMRI (magnetic resonance imaging) history of the cervical spine on 12/14/2018 at [facility] Work Phone: NEGATED: Highlighted rowxray history of the cervical spine on 11/04/2018 at [facility] [place] [facility] Work Phone: SURGon 04-24-2018 SURG Patient: ARTURO CORONADO SPECIMEN : [id number] Collection Date: 04/24/18 Received: 04/27/18 Status: DANILO Lozada DrSon: Abel Dixon MD Ph# Othr. Dr.: [facility] SUIT[facility]aterial for Examination: A GIANT CELL TUMOR RIGHT MIDDLE FINGER PRE-OP DIAGNOSIS: GANGLION RIGHT HAND POST-OP DIAGNOSIS: GIANT CELL TUMOR RIGHT HAND SURGICAL PROCEDURE: EXCISION GIANT CELL TUMOR RIGHT HAND DIAGNOSIS A. Giant cell tumor right middle finger, excision: Giant cell tumor of tendon sheathGROSS DESCRIPTION The specimen is received in formalin and labeled with the patient's name, ID and designatedgiant cell tumor, right middle finger. It consists of a round portion of white-yellowtissue measuring 0.6 x 0.5 x 0.4 cm in area. It is inked in black, sectioned and entirelysubmitted in cassette A1.MICROSCOPIC DESCRIPTION One Janie stained slide examined.Intradepart mental consultation with Chung Frye M.D.COPIES TO: Abel Dixon MD [facility]igned Verified/Reviewed by THERESA LUO MD 04/30/18 This dictation was created using voice recognition software. Phonetic and/or minor grammatical errors may exist. [facility] NAME: ARTURO CORONADO Pathology and Laboratory Medicine UNIT#: [id number] LOC: [facility] Lead Sprinkler: Rosario Ennis M.D. [id number] ROOM/BED: [place] [facility] : 49 AGE/SEX: 73/M ORD.Abel Chowdhury MD END OF REPORT Normal [facility] Lab Report: Lipid Profileon 04-29-2017 Cholesterol 157 mg/dL Invalid Interpretation Code 200 [employer] Work Phone: HDL Cholesterol 47 mg/dL Invalid Interpretation Code [employer] Work Phone: LDL Cholesterol 95 mg/dL Invalid Interpretation Code 0-130 [employer] Work Phone: Triglyceride 77 mg/dL Invalid Interpretation Code [employer] Work Phone: very low density lipoproteins 15 mg/dL Invalid Interpretation Code 5-40 [employer] Work Phone: Lab Report: Liver Profileon 04-29-2017 Alanine aminotransferase (ALT) 29 U/L Invalid Interpretation Code 12-78 [employer] Work Phone: Albumin 4.1 g/dL Invalid Interpretation Code 3.4-5.0 [employer] Work Phone: Alkaline phosphatase (ALP) 70 U/L Invalid Interpretation Code 45-117 [employer] Work Phone: Aspartate aminotransferase (AST) 29 U/L Invalid Interpretation Code 15-37 [employer] Work Phone: Bilirubin (direct) 0.26 mg/dL Invalid Interpretation Code 0.00-0.30 [employer] Work Phone: Bilirubin (total) 1.10 mg/dL High 0.20-1.00 [employer] Work Phone: Globulin 3.2 g/dL Invalid Interpretation Code 2.2-4.2 [employer] Work Phone: Protein 7.3 g/dL Invalid Interpretation Code 6.4-8.2 [employer] Work Phone: Office Visit: Levi 11-09-19 17 Documentation of current medications (procedure) Done Invalid Interpretation Code [employer] Work Phone: Fall risk assessment No Invalid Interpretation Code [employer] Work Phone: Protein mass conc Done [facility] Work Phone: Lab Report: Lipid Profileon 10-18-2016 Cholesterol 139 mg/dL Invalid Interpretation Code 200 [facility] Work Phone: HDL Cholesterol 45 mg/dL Invalid Interpretation Code [facility] Work Phone: LDL Cholesterol 77 mg/dL Invalid Interpretation Code 0-130 [facility] Work Phone: Triglyceride 87 mg/dL Invalid Interpretation Code [facility] Work Phone: very low density lipoproteins 17 mg/dL Invalid Interpretation Code 5-40 [facility] Work Phone: Lab Report: Liver Profileon 10-18-2016 Alanine aminotransferase (ALT) 30 U/L Invalid Interpretation Code 12-78 [employer] Work Phone: Albumin 3.9 g/dL Invalid Interpretation Code 3.4-5.0 [facility] Work Phone: Alkaline phosphatase (ALP) 82 U/L Invalid Interpretation Code 45-117 [facility] Work Phone: ALP enzyme act/vol (Bld) 82 U/L 45-117 [facility] Work Phone: Aspartate aminotransferase (AST) 28 U/L Invalid Interpretation Code 15-37 [employer] Work Phone: Bilirubin (direct) 0.26 mg/dL Invalid Interpretation Code 0.00-0.30 [facility] Work Phone: Bilirubin (total) 1.10 mg/dL High 0.20-1.00 [facility] Work Phone: Globulin 3.1 g/dL Invalid Interpretation Code 2.3-3.5 [facility] Work Phone: Globulin mass conc (S) 3.1 g/dL 2.3-3.5 [facility] Work Phone: Protein 7.0 g/dL Invalid Interpretation Code 6.4-8.2 [facility] Work Phone: Lab Report: Lipid Profileon 04-11-2016 Cholesterol 144 mg/dL Invalid Interpretation Code 200 [facility] Work Phone: HDL Cholesterol 43 mg/dL Invalid Interpretation Code [facility] Work Phone: LDL Cholesterol 82 mg/dL Invalid Interpretation Code 0-130 [facility] Work Phone: Triglyceride 93 mg/dL Invalid Interpretation Code [facility] Work Phone: very low density lipoproteins 19 mg/dL Invalid Interpretation Code 5-40 [facility] Work Phone: Lab Report: Liver Profileon 04-11-2016 Alanine aminotransferase (ALT) 36 U/L Invalid Interpretation Code 12-78 [facility] Work Phone: Albumin 3.8 g/dL Invalid Interpretation Code 3.4-5.0 [facility] Work Phone: Alkaline phosphatase (ALP) 73 U/L Invalid Interpretation Code 45-117 [facility] Work Phone: Aspartate aminotransferase (AST) 32 U/L Invalid Interpretation Code 15-37 [facility] Work Phone: Bilirubin (direct) 0.23 mg/dL Invalid Interpretation Code 0.00-0.30 [facility] Work Phone: Bilirubin (total) 1.20 mg/dL High 0.20-1.00 [facility] Work Phone: Globulin 3.1 g/dL Invalid Interpretation Code 2.3-3.5 [facility] Work Phone: Protein 6.9 g/dL Invalid Interpretation Code 6.4-8.2 [facility] Work Phone: Office Visiton 10-24-2015 Documentation of current medications (procedure) Done Invalid Interpretation Code [facility] Work Phone: Protein mass conc Done [facility] Work Phone: Clinical Lists Update: Prelo cotton opener 10-11-2015 Left ventricular Ejection fraction 59 % Invalid Interpretation Code [facility] Work Phone: Office Visiton 04-21-2015 Tobacco smoking status NHIS Tobacco smoking status NHIS Invalid Interpretation Code [facility] Work Phone: Tobacco smoking status NHIS Former smoker [facility] Work Phone: Tobacco use [facility] Former smoker Invalid Interpretation Code [facility] Work Phone: Replaced Document: Midmark E CG Observationson 04-21-2015 EKG QRS axis 63 deg [facility] Work Phone: electrocardiogram interpretation Sinus Bradycardia WITHIN NORMAL LIMITS Invalid Interpretation Code [facility] Work Phone: GE use only - for [employer] import when terms are not otherwise specified 405 ms Invalid Interpretation Code [facility] Work Phone: Interpretation Sinus Bradycardia WITHIN NORMAL LIMITS [facility] Work Phone: P Alma 66 deg [facility] Work Phone: P wave axis, electrocardiogram 66 deg Invalid Interpretation Code [facility] Work Phone: MI Interval 202 ms [facility] Work Phone: MI interval, electrocardiogram 202 ms Invalid Interpretation Code [facility] Work Phone: Pulse (Heart Rate) 56 /min Invalid Interpretation Code [facility] Work Phone: QRS axis, electrocardiogram 63 deg Invalid Interpretation Code [facility] Work Phone: QRS Duration 94 ms [facility] Work Phone: QRS duration, electrocardiogram 94 ms Invalid Interpretation Code [facility] Work Phone: QT Interval new path ms [facility] Work Phone: QT interval, electrocardiogram new path ms Invalid Interpretation Code [facility] Work Phone: QTc Nava 405 ms [facility] Work Phone: T Alma 55 deg [facility] Work Phone: T wave axis, electrocardiogram 55 deg Invalid Interpretation Code [facility] Work Phone: Office Visiton 04-05-2014 cardiac risk group C Invalid Interpretation Code [facility] Work Phone: General cardiovascular disease 10Y risk [#] [place].D'Agostino N/A Invalid Interpretation Code [facility] Work Phone: Lab Report: TSHon 03-26-2014 Thyroid stimulating hormone (TSH) 1.47 u[iU]/mL Normal 0.358-3.74 [facility] Work Phone: Clinical Lists Update: Prelo cotton opener 02-16-2014 Calcium 8.8 mg/dL Invalid Interpretation Code [facility] Work Phone: Chloride 107 mmol/L Invalid Interpretation Code [facility] Work Phone: CO2 26.0 mmol/L Invalid Interpretation Code [facility] Work Phone: CO2 ppres (BldV) 26.0 mmol/L [facility] Work Phone: Creatinine 1.0 mg/dL Invalid Interpretation Code [facility] Work Phone: Hematocrit (HCT) 44.4 % Invalid Interpretation Code [facility] Work Phone: Hematocrit Volume Fraction (Bld) 44.4 % [facility] Work Phone: Hemoglobin (HGB) 15.3 g/dL Invalid Interpretation Code [facility] Work Phone: Platelets 186 10*3/mm3 Invalid Interpretation Code [facility] Work Phone: Platelets #/vol (Bld) 186 10*3/mm3 [facility] Work Phone: Potassium 4.1 mmol/L Invalid Interpretation Code [facility] Work Phone: Sodium 139 mmol/L Invalid Interpretation Code [facility] Work Phone: Urea nitrogen 17 mg/dL Invalid Interpretation Code [facility] Work Phone: WBC #/vol (Bld) 7.5 10*3/uL [facility] Work Phone: WBC (Leukocytes) 7.5 10*3/uL Invalid Interpretation Code [facility] Work Phone: Replaced Document: BMPon Glucose 90 mg/dL Normal 70-110 [facility] Work Phone: Glucose mass conc 90 mg/dL Normal 70-110 [facility] Work Phone: Lab Report: CBCon 03-23-2013 Erythrocytes (RBC) 4.77 10*6/uL Normal 4.6-6.2 [facility] Work Phone: RBC #/vol (Bld) 4.77 10*6/uL Normal 4.6-6.2 [facility] Work Phone: Lab Report: PTon 03-23-2013 INR Coag RelTime (PPP) 1.0 {INR} Normal [facility] Work Phone: INR in blood by coagulation 1.0 {INR} Normal [facility] Work Phone: prothrombin time, actual/normal, ratio 12.8 SECONDS Normal 11.9-14.4 [facility] Work Phone: PTP 12.8 SECONDS Normal 11.9-14.4 [facility] Work Phone: Replaced Document: Yesikamark E CG Observationson 01-02-2012 Pulse (Heart Rate) 423 ms Invalid Interpretation Code [facility] Work Phone: Clinical Lists Update: Prelo cotton opener 06-23-2011 Anion gap 10 mmol/L Invalid Interpretation Code [facility] Work Phone: Anion gap molar conc 10 mmol/L [facility] Work Phone: BUN/Creatinine Ratio 15 mg/mg Invalid Interpretation Code [facility] Work Phone: MCH 31.8 pg Invalid Interpretation Code [facility] Work Phone: MCH Entitic mass (RBC) 31.8 pg [facility] Work Phone: MCV 92.2 fL Invalid Interpretation Code [facility] Work Phone: MCV Entitic volume (RBC) 92.2 fL [facility] Work Phone: Vital Signs Date Time Vital Sign Value Performing Clinician Facility 11-10-2024 14:58-0400 Body height 180.[address] Gauri Vila DO Work Phone: [facility] 11-10-2024 14:58-0400 Body mass index (BMI) [Ratio] 24.3 kg/m2 Dr. Gauri Vila DO Work Phone: [facility] 11-10-2024 14:58-0400 Body weight 78.[address] Gauri Vila DO Work Phone: [facility] 11-10-2024 14:58-0400 Diastolic blood pressure 75 mm[Hg] Dr. Gauri Vila DO Work Phone: [facility] 11-10-2024 14:58-0400 Heart rate 55 /min Dr. Gauri Vila DO Work Phone: [facility] 11-10-2024 14:58-0400 Respiratory rate 16 /min Dr. Gauri Vila DO Work Phone: [facility] 11-10-2024 14:58-0400 Systolic blood pressure 123 mm[Hg] Dr. Gauri Vila DO Work Phone: [facility] 10-25-2024 13:37-0400 Body height 180.[address] Gauri Vila DO Work Phone: [facility] 10-25-2024 13:37-0400 Body mass index (BMI) [Ratio] 24.4 kg/m2 Dr. Gauri Vila DO Work Phone: [facility] 10-25-2024 13:37-0400 Body weight 79.[address] Gauri Vila DO Work Phone: [facility] 10-12-2024 14:20-0400 Body height 180.[address] Gauri Vila DO Work Phone: [facility] 10-12-2024 14:20-0400 Body mass index (BMI) [Ratio] 24.5 kg/m2 Dr. Gauri Vila DO Work Phone: [facility] 10-12-2024 14:20-0400 Body weight [address] Gauri Vila DO Work Phone: [facility] 09-01-2024 11:08-0400 Body mass index (BMI) [Ratio] 25.1 kg/m2 Dr. Gauri Vila DO Work Phone: [facility] 09-01-2024 11:08-0400 Body temperature 98.2 [degF] Dr. Gauri Vila DO Work Phone: [facility] 09-01-2024 11:08-0400 Body weight 81.[address] Gauri Vila DO Work Phone: [facility] 09-01-2024 11:08-0400 Diastolic blood pressure 66 mm[Hg] Dr. Gauri Vila DO Work Phone: [facility] 09-01-2024 11:08-0400 Heart rate 58 /min Dr. Gauri Vila DO Work Phone: [facility] 09-01-2024 11:08-0400 Respiratory rate 18 /min Dr. Gauri Vila DO Work Phone: [facility] 09-01-2024 11:08-0400 SaO2% (BldA) [Mass fraction] 96 % Dr. Gauri Vila DO Work Phone: [facility] 09-01-2024 11:08-0400 Systolic blood pressure 118 mm[Hg] Dr. Gauri Vila DO Work Phone: [facility] 07-21-2024 15:27-0400 Body height 180.[address] Gauri Vila DO Work Phone: [facility] 07-21-2024 15:27-0400 Body mass index (BMI) [Ratio] 24.5 kg/m2 Dr. Gauri Vila DO Work Phone: [facility] 07-21-2024 15:27-0400 Body temperature 98.2 [degF] Dr. Gauri Vila DO Work Phone: [facility] 07-21-2024 15:27-0400 Body weight 79.[address] Gauri Vila DO Work Phone: [facility] 07-21-2024 15:27-0400 Diastolic blood pressure 78 mm[Hg] Dr. Gauri Vila DO Work Phone: [facility] 07-21-2024 15:27-0400 Heart rate 67 /min Dr. Gauri Vila DO Work Phone: [facility] 07-21-2024 15:27-0400 Respiratory rate 18 /min Dr. Gauri Vila DO Work Phone: [facility] 07-21-2024 15:27-0400 SaO2% (BldA) [Mass fraction] 97 % Dr. Gauri Vila DO Work Phone: [facility] 07-21-2024 15:27-0400 Systolic blood pressure 142 mm[Hg] Dr. Gauri Vila DO Work Phone: [facility] 07-07-2024 08:53-0500 Body mass index (BMI) [Ratio] 25.1 kg/m2 Dr. Gauri Vila DO Work Phone: [facility] 07-07-2024 08:53-0500 Body weight 81.[address] Gauri Vila DO Work Phone: [facility] 07-07-2024 08:53-0500 Diastolic blood pressure 78 mm[Hg] Dr. Gauri Vila DO Work Phone: [facility] 07-07-2024 08:53-0500 Heart rate 61 /min Dr. Gauri Vila DO Work Phone: [facility] 07-07-2024 08:53-0500 Respiratory rate 18 /min Dr. Gauri Vila DO Work Phone: [facility] 07-07-2024 08:53-0500 SaO2% (BldA) [Mass fraction] 94 % Dr. Gauri Vila DO Work Phone: [facility] 07-07-2024 08:53-0500 Systolic blood pressure 125 mm[Hg] Dr. Gauri Vila DO Work Phone: [facility] 04-14-2024 16:23-0500 Body height 180.[address] Gauri Vila DO Work Phone: [facility] 04-14-2024 16:23-0500 Body mass index (BMI) [Ratio] 25.1 kg/m2 Dr. Gauri Vila DO Work Phone: [facility] 04-14-2024 16:23-0500 Body temperature 97.3 [degF] Dr. Gauri Vila DO Work Phone: [facility] 04-14-2024 16:23-0500 Body weight 81.[address] Gauri Vila DO Work Phone: [facility] 04-14-2024 16:23-0500 Diastolic blood pressure 70 mm[Hg] Dr. Gauri Vila DO Work Phone: [facility] 04-14-2024 16:23-0500 Heart rate 71 /min Dr. Gauri Vila DO Work Phone: [facility] 04-14-2024 16:23-0500 Respiratory rate 16 /min Dr. Gauri Vila DO Work Phone: [facility] 04-14-2024 16:23-0500 Systolic blood pressure 118 mm[Hg] Dr. Gauri Vila DO Work Phone: [facility] 04-03-2024 13:28-0500 Body temperature 97.9 [degF] Dr. Gauri Vila DO Work Phone: [facility] 04-03-2024 13:28-0500 Diastolic blood pressure 81 mm[Hg] Dr. Gauri Vila DO Work Phone: [facility] 04-03-2024 13:28-0500 Heart rate 78 /min Dr. Gauri Vila DO Work Phone: [facility] 04-03-2024 13:28-0500 Respiratory rate 16 /min Dr. Gauri Vila DO Work Phone: [facility] 04-03-2024 13:28-0500 SaO2% (BldA) [Mass fraction] 99 % Dr. Gauri Vila DO Work Phone: [facility] 04-03-2024 13:28-0500 Systolic blood pressure 139 mm[Hg] Dr. Gauri Vila DO Work Phone: [facility] 04-03-2024 10:15-0500 Body mass index (BMI) [Ratio] 26.1 kg/m2 Dr. Gauri Vila DO Work Phone: [facility] 04-03-2024 10:15-0500 Body weight 84.[address] Gauri Vila DO Work Phone: [facility] 04-03-2024 09:46-0500 Body temperature 97.5 [degF] Mandy Lazaro PA-C Work Phone: [facility] 04-03-2024 09:46-0500 Body weight 81 kg Mandy Athy PA-C Work Phone: [facility] 04-03-2024 09:46-0500 Diastolic blood pressure 80 mm[Hg] Mandy Athy PA-C Work Phone: [facility] 04-03-2024 09:46-0500 Heart rate 67 /min Mandy Athy PA-C Work Phone: [facility] 04-03-2024 09:46-0500 Respiratory rate 20 /min Mandy Athy PA-C Work Phone: [facility] 04-03-2024 09:46-0500 SaO2% (BldA) [Mass fraction] 98 % Mandy Athy PA-C Work Phone: [facility] 04-03-2024 09:46-0500 Systolic blood pressure 110 mm[Hg] Mandy Athy PA-C Work Phone: [facility] 07-15-2023 14:00-0400 Diastolic blood pressure 96 mm[Hg] Bib Franz MD Work Phone: [facility] 07-15-2023 14:00-0400 Heart rate 54 /min Bib Franz MD Work Phone: [facility] 07-15-2023 14:00-0400 Systolic blood pressure 167 mm[Hg] Bib Franz MD Work Phone: [facility] 07-15-2023 13:47-0400 Body mass index (BMI) [Ratio] 24.13 kg/m2 Bib Franz MD Work Phone: [facility] 07-15-2023 13:47-0400 Body weight 78.47 kg Bib Franz MD Work Phone: [facility] 07-04-2023 13:44-0500 Body height 180.[address] Gauri Vila Work Phone: [facility] 07-04-2023 13:44-0500 Body mass index (BMI) [Ratio] 24 kg/m2 Dr. Gauri Vila Work Phone: [facility] 07-04-2023 13:44-0500 Body weight 78.[address] Gauri Vila Work Phone: [facility] 07-04-2023 13:44-0500 Diastolic blood pressure 97 mm[Hg] Dr. Gauri Vila Work Phone: [facility] 07-04-2023 13:44-0500 Heart rate 55 /min Dr. Gauri Vila Work Phone: [facility] 07-04-2023 13:44-0500 Respiratory rate 16 /min Dr. Gauri Vila Work Phone: [facility] 07-04-2023 13:44-0500 Systolic blood pressure 160 mm[Hg] Dr. Gauri Vila Work Phone: [facility] 05-12-2023 15:13-0500 Body temperature 97.8 [degF] Dr. Gauri Vila Work Phone: [facility] 05-12-2023 15:13-0500 Diastolic blood pressure 90 mm[Hg] Dr. Gauri Vila Work Phone: [facility] 05-12-2023 15:13-0500 Heart rate 65 /min Dr. Gauri Vila Work Phone: [facility] 05-12-2023 15:13-0500 Respiratory rate 12 /min Dr. Gauri Vila Work Phone: [facility] 05-12-2023 15:13-0500 SaO2% (BldA) [Mass fraction] 97 % Dr. Gauri Vila Work Phone: [facility] 05-12-2023 15:13-0500 Systolic blood pressure 146 mm[Hg] Dr. Gauri Vila Work Phone: [facility] 05-07-2023 11:21-0500 Body height 180.[address] Gauri Vila Work Phone: [facility] 05-07-2023 11:21-0500 Body mass index (BMI) [Ratio] 24.3 kg/m2 Dr. Gauri Vila Work Phone: [facility] 05-07-2023 11:21-0500 Body temperature 98.1 [degF] Dr. Gauri Vila Work Phone: [facility] 05-07-2023 11:21-0500 Body weight 78.[address] Gauri Vila Work Phone: [facility] 05-07-2023 11:21-0500 Diastolic blood pressure 86 mm[Hg] Dr. Gauri Vila Work Phone: [facility] 05-07-2023 11:21-0500 Heart rate 59 /min Dr. Gauri Vila Work Phone: [facility] 05-07-2023 11:21-0500 SaO2% (BldA) [Mass fraction] 98 % Dr. Gauri Vila Work Phone: [facility] 05-07-2023 11:21-0500 Systolic blood pressure 164 mm[Hg] Dr. Gauri Vila Work Phone: [facility] 04-24-2023 13:57-0500 Body mass index (BMI) [Ratio] 24.1 kg/m2 Dr. Gauri Vila Work Phone: [facility] 04-24-2023 13:57-0500 Body temperature 99.8 [degF] Dr. Gauri Vila Work Phone: [facility] 04-24-2023 13:57-0500 Body weight 78.[address] Gauri Vila Work Phone: [facility] 04-24-2023 13:57-0500 Diastolic blood pressure 81 mm[Hg] Dr. Gauri Vila Work Phone: [facility] 04-24-2023 13:57-0500 Heart rate 75 /min Dr. Gauri Vila Work Phone: [facility] 04-24-2023 13:57-0500 Respiratory rate 16 /min Dr. Gauri Vila Work Phone: [facility] 04-24-2023 13:57-0500 SaO2% (BldA) [Mass fraction] 94 % Dr. Gauri Vila Work Phone: [facility] 04-24-2023 13:57-0500 Systolic blood pressure 145 mm[Hg] Dr. Gauri Vila Work Phone: [facility] 01-28-2023 14:07-0400 Body mass index (BMI) [Ratio] 23.7 kg/m2 Dr. Gauri Vila Work Phone: [facility] 01-28-2023 14:07-0400 Body temperature 98.2 [degF] Dr. Gauri Vila Work Phone: [facility] 01-28-2023 14:07-0400 Body weight 77.[address] Gauri Vila Work Phone: [facility] 01-28-2023 14:07-0400 Diastolic blood pressure 90 mm[Hg] Dr. Gauri Vila Work Phone: [facility] 01-28-2023 14:07-0400 Heart rate 56 /min Dr. Gauri Vila Work Phone: [facility] 01-28-2023 14:07-0400 Respiratory rate 16 /min Dr. Gauri Vila Work Phone: [facility] 01-28-2023 14:07-0400 SaO2% (BldA) [Mass fraction] 98 % Dr. Gauri Vila Work Phone: [facility] 01-28-2023 14:07-0400 Systolic blood pressure 142 mm[Hg] Dr. Gauri Vila Work Phone: [facility] 09-20-2022 15:06-0400 Diastolic blood pressure 89 mm[Hg] [facility] 09-20-2022 15:06-0400 Heart rate 56 /min [facility] 09-20-2022 15:06-0400 Respiratory rate 16 /min [facility] 09-20-2022 15:06-0400 SaO2% (BldA) [Mass fraction] 98 % [facility] 09-20-2022 15:06-0400 Systolic blood pressure 157 mm[Hg] [facility] 09-20-2022 13:06-0400 Body height 180.34 cm [facility] 09-20-2022 13:06-0400 Body mass index (BMI) [Ratio] 24.7 kg/m2 [facility] 09-20-2022 13:06-0400 Body temperature 98.4 [degF] [facility] 09-20-2022 13:06-0400 Body weight 80.54 kg [facility] 04-10-2022 15:28-0500 Body height 182.[address] Gauri Vila Work Phone: [facility] Work Phone: 04-10-2022 15:28-0500 Body mass index (BMI) [Ratio] 24 kg/m2 Dr. Gauri Vila Work Phone: [facility] Work Phone: 04-10-2022 15:28-0500 Body temperature 97.2 [degF] Dr. Gauri Vila Work Phone: [facility] Work Phone: 04-10-2022 15:28-0500 Body weight 80.[address] Gauri Vila Work Phone: [facility] Work Phone: 04-10-2022 15:28-0500 Diastolic blood pressure 82 mm[Hg] Dr. Gauri Vila Work Phone: [facility] Work Phone: 04-10-2022 15:28-0500 Heart rate 59 /min Dr. Gauri Vila Work Phone: [facility] Work Phone: 04-10-2022 15:28-0500 Respiratory rate 14 /min Dr. Gauri Vila Work Phone: [facility] Work Phone: 04-10-2022 15:28-0500 SaO2% (BldA) [Mass fraction] 97 % Dr. Gauri Vila Work Phone: [facility] Work Phone: 04-10-2022 15:28-0500 Systolic blood pressure 140 mm[Hg] Dr. Gauri Vila Work Phone: [facility] Work Phone: 04-08-2022 15:20-0500 Body temperature 98.8 [degF] Dr. Gauri Vila Work Phone: [facility] Work Phone: 04-08-2022 15:20-0500 Diastolic blood pressure 80 mm[Hg] Dr. Gauri Vila Work Phone: [facility] Work Phone: 04-08-2022 15:20-0500 Heart rate 61 /min Dr. Gauri Vila Work Phone: [facility] Work Phone: 04-08-2022 15:20-0500 Respiratory rate 14 /min Dr. Gauri Vila Work Phone: [facility] Work Phone: 04-08-2022 15:20-0500 SaO2% (BldA) [Mass fraction] 98 % Dr. Gauri Vila Work Phone: [facility] Work Phone: 04-08-2022 15:20-0500 Systolic blood pressure 134 mm[Hg] Dr. Gauri Vila Work Phone: [facility] Work Phone: 01-22-2022 15:41-0400 Body mass index (BMI) [Ratio] 23.8 kg/m2 Dr. Gauri Vila Work Phone: [facility] Work Phone: 01-22-2022 15:41-0400 Body temperature 97.9 [degF] Dr. Gauri Vila Work Phone: [facility] Work Phone: 01-22-2022 15:41-0400 Body weight 79.[address] Gauri Vila Work Phone: [facility] Work Phone: 01-22-2022 15:41-0400 Diastolic blood pressure 78 mm[Hg] Dr. Gauri Vila Work Phone: [facility] Work Phone: 01-22-2022 15:41-0400 Heart rate 66 /min Dr. Gauri Vila Work Phone: [facility] Work Phone: 01-22-2022 15:41-0400 Respiratory rate 16 /min Dr. Gauri Vila Work Phone: [facility] Work Phone: 01-22-2022 15:41-0400 SaO2% (BldA) [Mass fraction] 97 % Dr. Gauri Vila Work Phone: [facility] Work Phone: 01-22-2022 15:41-0400 Systolic blood pressure 130 mm[Hg] Dr. Gauri Vila Work Phone: [facility] Work Phone: 01-10-2022 02:35-0400 Diastolic blood pressure 81 mm[Hg] Dr. Gauri Vila Work Phone: [facility] Work Phone: 01-10-2022 02:35-0400 Heart rate 61 /min Dr. Gauri Vila Work Phone: [facility] Work Phone: 01-10-2022 02:35-0400 Respiratory rate 15 /min Dr. Gauri Vila Work Phone: [facility] Work Phone: 01-10-2022 02:35-0400 SaO2% (BldA) [Mass fraction] 97 % Dr. Gauri Vila Work Phone: [facility] Work Phone: 01-10-2022 02:35-0400 Systolic blood pressure 143 mm[Hg] Dr. Gauri Vila Work Phone: [facility] Work Phone: 01-09-2022 23:59-0400 Body height 182.[address] Gauri Vila Work Phone: [facility] Work Phone: 01-09-2022 23:59-0400 Body mass index (BMI) [Ratio] 23.7 kg/m2 Dr. Gauri Vila Work Phone: [facility] Work Phone: 01-09-2022 23:59-0400 Body temperature 98.3 [degF] Dr. Gauri Vila Work Phone: [facility] Work Phone: 01-09-2022 23:59-0400 Body weight 79.[address] Gauri Vila Work Phone: [facility] Work Phone: 12-10-2021 13:08-0400 Body height 182.[address] Gauri Vlia Work Phone: [facility] Work Phone: 12-10-2021 13:08-0400 Body mass index (BMI) [Ratio] 23.5 kg/m2 Dr. Gauri Vila Work Phone: [facility] Work Phone: 12-10-2021 13:08-0400 Body temperature 98.1 [degF] Dr. Gauri Vila Work Phone: [facility] Work Phone: 12-10-2021 13:08-0400 Body weight 78.[address] Gauri Vila Work Phone: [facility] Work Phone: 12-10-2021 13:08-0400 Diastolic blood pressure 75 mm[Hg] Dr. Gauri Vila Work Phone: [facility] Work Phone: 12-10-2021 13:08-0400 Heart rate 58 /min Dr. Gauri Vila Work Phone: [facility] Work Phone: 12-10-2021 13:08-0400 Respiratory rate 17 /min Dr. Gauri Vila Work Phone: [facility] Work Phone: 12-10-2021 13:08-0400 SaO2% (BldA) [Mass fraction] 97 % Dr. Gauri Vila Work Phone: [facility] Work Phone: 12-10-2021 13:08-0400 Systolic blood pressure 146 mm[Hg] Dr. Gauri Vila Work Phone: [facility] Work Phone: 11-30-2021 15:28-0400 Body temperature 97.6 [degF] Dr. Gauri Vila Work Phone: [facility] Work Phone: 11-30-2021 15:28-0400 Diastolic blood pressure 80 mm[Hg] Dr. Gauri Vila Work Phone: [facility] Work Phone: 11-30-2021 15:28-0400 Heart rate 75 /min Dr. Gauri Vila Work Phone: [facility] Work Phone: 11-30-2021 15:28-0400 Respiratory rate 16 /min Dr. Gauri Vila Work Phone: [facility] Work Phone: 11-30-2021 15:28-0400 SaO2% (BldA) [Mass fraction] 97 % Dr. Gauri Vila Work Phone: [facility] Work Phone: 11-30-2021 15:28-0400 Systolic blood pressure 122 mm[Hg] Dr. Gauri Vila Work Phone: [facility] Work Phone: 11-19-2021 07:45-0400 Body height 182.[address] Gauri Vila Work Phone: [facility] Work Phone: 11-19-2021 07:45-0400 Body weight 78.[address] Gauri Vila Work Phone: [facility] Work Phone: 11-16-2021 08:37-0400 Body mass index (BMI) [Ratio] 23.6 kg/m2 Dr. Gauri Vila Work Phone: [facility] Work Phone: 11-13-2021 13:56-0400 Body mass index (BMI) [Ratio] 23.6 kg/m2 Dr. Gauri Vila Work Phone: [facility] Work Phone: 11-13-2021 13:56-0400 Body weight 78.[address] Gauri Vila Work Phone: [facility] Work Phone: 10-24-2021 13:00-0400 Body mass index (BMI) [Ratio] 23.3 kg/m2 Dr. Gauri Vila Work Phone: [facility] Work Phone: 10-24-2021 13:00-0400 Body temperature 99.1 [degF] Dr. Gauri Vila Work Phone: [facility] Work Phone: 10-24-2021 13:00-0400 Body weight 78.[address] Gauri Vila Work Phone: [facility] Work Phone: 10-24-2021 13:00-0400 Diastolic blood pressure 86 mm[Hg] Dr. Gauri Vila Work Phone: [facility] Work Phone: 10-24-2021 13:00-0400 Heart rate 60 /min Dr. Gauri Vila Work Phone: [facility] Work Phone: 10-24-2021 13:00-0400 Respiratory rate 16 /min Dr. Gauri Vila Work Phone: [facility] Work Phone: 10-24-2021 13:00-0400 SaO2% (BldA) [Mass fraction] 97 % Dr. Gauri Vila Work Phone: [facility] Work Phone: 10-24-2021 13:00-0400 Systolic blood pressure 126 mm[Hg] Dr. Gauri Vila Work Phone: [facility] Work Phone: 10-17-2021 17:30-0400 Heart rate 74 /min Dr. Gauri Vila Work Phone: [facility] Work Phone: 10-17-2021 17:30-0400 Respiratory rate 17 /min Dr. Gauri Vila Work Phone: [facility] Work Phone: 10-17-2021 14:35-0400 Body height 182.[address] Gauri Vila Work Phone: [facility] Work Phone: 10-17-2021 14:35-0400 Body mass index (BMI) [Ratio] 22.8 kg/m2 Dr. Gauri Vila Work Phone: [facility] Work Phone: 10-17-2021 14:35-0400 Body temperature 97.5 [degF] Dr. Gauri Vila Work Phone: [facility] Work Phone: 10-17-2021 14:35-0400 Body weight 76.[address] Gauri Vila Work Phone: [facility] Work Phone: 10-17-2021 14:35-0400 Diastolic blood pressure 83 mm[Hg] Dr. Gauri Vila Work Phone: [facility] Work Phone: 10-17-2021 14:35-0400 Systolic blood pressure 118 mm[Hg] Dr. Gauri Vila Work Phone: [facility] Work Phone: 10-10-2021 16:29-0400 Body mass index (BMI) [Ratio] 24.4 kg/m2 Dr. Gauri Vila Work Phone: [facility] Work Phone: 10-10-2021 16:29-0400 Body temperature 97.1 [degF] Dr. Gauri Vila Work Phone: [facility] Work Phone: 10-10-2021 16:29-0400 Body weight 79.[address] Gauri Vila Work Phone: [facility] Work Phone: 10-10-2021 16:29-0400 Diastolic blood pressure 84 mm[Hg] Dr. Gauri Vila Work Phone: [facility] Work Phone: 10-10-2021 16:29-0400 Heart rate 68 /min Dr. Gauri Vila Work Phone: [facility] Work Phone: 10-10-2021 16:29-0400 Respiratory rate 14 /min Dr. Gauri Vila Work Phone: [facility] Work Phone: 10-10-2021 16:29-0400 SaO2% (BldA) [Mass fraction] 98 % Dr. Gauri Vila Work Phone: [facility] Work Phone: 10-10-2021 16:29-0400 Systolic blood pressure 146 mm[Hg] Dr. Gauri Vila Work Phone: [facility] Work Phone: 08-14-2021 13:20-0400 Body mass index (BMI) [Ratio] 24.3 kg/m2 Dr. Gauri Vila Work Phone: [facility] Work Phone: 08-14-2021 13:20-0400 Body weight 78.[address] Gauri Vila Work Phone: [facility] Work Phone: 08-14-2021 13:20-0400 Diastolic blood pressure 77 mm[Hg] Dr. Gauri Vila Work Phone: [facility] Work Phone: 08-14-2021 13:20-0400 Heart rate 59 /min Dr. Gauri Vila Work Phone: [facility] Work Phone: 08-14-2021 13:20-0400 Respiratory rate 18 /min Dr. Gauri Vila Work Phone: [facility] Work Phone: 08-14-2021 13:20-0400 SaO2% (BldA) [Mass fraction] 95 % Dr. Gauri Vila Work Phone: [facility] Work Phone: 08-14-2021 13:20-0400 Systolic blood pressure 129 mm[Hg] Dr. Gauri Vila Work Phone: [facility] Work Phone: 08-14-2021 13:20-0400 Body height 180.[address] Gauri Vila Work Phone: [facility] Work Phone: 08-14-2021 13:20-0400 Body mass index (BMI) [Ratio] 24.3 kg/m2 Dr. Gauri Vila Work Phone: [facility] Work Phone: 08-14-2021 13:20-0400 Body weight 78.[address] Gauri Vila Work Phone: [facility] Work Phone: 08-14-2021 13:20-0400 Diastolic blood pressure 77 mm[Hg] Dr. Gauri Vila Work Phone: [facility] Work Phone: 08-14-2021 13:20-0400 Heart rate 59 /min Dr. Gauri Vila Work Phone: [facility] Work Phone: 08-14-2021 13:20-0400 Respiratory rate 18 /min Dr. Gauri Vila Work Phone: [facility] Work Phone: 08-14-2021 13:20-0400 SaO2% (BldA) [Mass fraction] 95 % Dr. Gauri Vila Work Phone: [facility] Work Phone: 08-14-2021 13:20-0400 Systolic blood pressure 129 mm[Hg] Dr. Gauri Vila Work Phone: [facility] Work Phone: 07-03-2021 14:35-0500 Body mass index (BMI) [Ratio] 24.4 kg/m2 Dr. Gauri Vila Work Phone: [facility] Work Phone: 07-03-2021 14:35-0500 Body temperature 97.3 [degF] Dr. Gauri Vila Work Phone: [facility] Work Phone: 07-03-2021 14:35-0500 Body weight 79.[address] Gauri Vila Work Phone: [facility] Work Phone: 07-03-2021 14:35-0500 Diastolic blood pressure 72 mm[Hg] Dr. Gauri Vila Work Phone: [facility] Work Phone: 07-03-2021 14:35-0500 Heart rate 56 /min Dr. Gauri Vila Work Phone: [facility] Work Phone: 07-03-2021 14:35-0500 Respiratory rate 14 /min Dr. Gauri Vila Work Phone: [facility] Work Phone: 07-03-2021 14:35-0500 SaO2% (BldA) [Mass fraction] 98 % Dr. Gauri Vila Work Phone: [facility] Work Phone: 07-03-2021 14:35-0500 Systolic blood pressure 128 mm[Hg] Dr. Gauri Vila Work Phone: [facility] Work Phone: 07-03-2021 13:35-0500 Body mass index (BMI) [Ratio] 24.4 kg/m2 Dr. Gauri Vila Work Phone: [facility] Work Phone: 07-03-2021 13:35-0500 Body temperature 97.3 [degF] Dr. Gauri Vila Work Phone: [facility] Work Phone: 07-03-2021 13:35-0500 Body weight 79.[address] Gauri Vila Work Phone: [facility] Work Phone: 07-03-2021 13:35-0500 Diastolic blood pressure 72 mm[Hg] Dr. Gauri Vila Work Phone: [facility] Work Phone: 07-03-2021 13:35-0500 Heart rate 56 /min Dr. Gauri Vila Work Phone: [facility] Work Phone: 07-03-2021 13:35-0500 Respiratory rate 14 /min Dr. Gauri Vila Work Phone: [facility] Work Phone: 07-03-2021 13:35-0500 SaO2% (BldA) [Mass fraction] 98 % Dr. Gauri Vila Work Phone: [facility] Work Phone: 07-03-2021 13:35-0500 Systolic blood pressure 128 mm[Hg] Dr. Gauri Vila Work Phone: [facility] Work Phone: 08-23-2020 12:46-0400 Body height 180.3 cm Bib Franz MD Work Phone: [facility] 08-23-2020 12:46-0400 Body mass index (BMI) [Ratio] 25.24 kg/m2 Bib Franz MD Work Phone: [facility] 08-23-2020 12:46-0400 Body weight 82.1 kg Bib Franz MD Work Phone: [facility] 08-23-2020 12:46-0400 Diastolic blood pressure 92 mm[Hg] Bib Franz MD Work Phone: [facility] 08-23-2020 12:46-0400 Heart rate 61 /min Bib Franz MD Work Phone: [facility] 08-23-2020 12:46-0400 Systolic blood pressure 163 mm[Hg] Bib Franz MD Work Phone: [facility] 08-24-2018 13:01-0400 BMI (Body Mass Index) 24.83 kg/m2 Jacqui Olivas [facility] 08-24-2018 13:01-0400 BP Diastolic 96 mm[Hg] Jacqui Olivas [facility] 08-24-2018 13:01-0400 BP Systolic 155 mm[Hg] Jacqui Olivas [facility] 08-24-2018 13:01-0400 Height 180.3 cm Jacqui Olivas [facility] 08-24-2018 13:01-0400 Pulse (Heart Rate) 56 /min Jacqui Olivas [facility] 08-24-2018 13:01-0400 Weight 80.74 kg Jacqui Olivas [facility] 04-16-2017 10:30-0500 BMI (Body Mass Index) 23.85 kg/m2 Bib Franz [facility] Work Phone: 04-16-2017 10:30-0500 BP Diastolic 88 mm[Hg] Bib Franz [facility] Work Phone: 04-16-2017 10:30-0500 BP Systolic 118 mm[Hg] Bib Franz [facility] Work Phone: 04-16-2017 10:30-0500 Pulse (Heart Rate) 64 /min Bib Franz [facility] Work Phone: 04-16-2017 10:30-0500 Weight 77.56 kg Bib Franz [facility] Work Phone: 11-08-2016 09:16-0400 BMI (Body Mass Index) 25.14 kg/m2 [facility] Work Phone: 11-08-2016 09:16-0400 BP Diastolic 78 mm[Hg] Bjtalle Ren [facility] Work Phone: 11-08-2016 09:16-0400 BP Systolic 122 mm[Hg] Chantalle Ren [facility] Work Phone: 11-08-2016 09:16-0400 Height 182.88 cm [facility]ant[facility] Work Phone: 11-08-2016 09:16-0400 Pulse (Heart Rate) 52 /min Chantalle Ren [facility] Work Phone: 11-08-2016 09:16-0400 Respiratory Rate 20 /min B[facility] Work Phone: 11-08-2016 09:16-0400 Weight 84.1 kg [facility] Work Phone: 10-24-2015 15:09-0400 BMI (Body Mass Index) 22.92 kg/m2 [facility] Work Phone: 10-24-2015 15:09-0400 BP Diastolic 70 mm[Hg] [facility] Work Phone: 10-24-2015 15:09-0400 BP Systolic 100 mm[Hg] [facility] Work Phone: 10-24-2015 15:09-0400 BSA (Body Surface Area) 1.98 m2 [facility] Work Phone: 10-24-2015 15:09-0400 Pulse (Heart Rate) 68 /min [facility] Work Phone: 10-24-2015 15:09-0400 Respiratory Rate 20 /min [facility] Work Phone: 10-24-2015 15:09-0400 Weight 76.66 kg [facility] Work Phone: 04-21-2015 13:52-0500 Heart rate 56 /min [facility] Work Phone: 10-14-2013 15:14-0400 Height 182.88 cm [facility] Work Phone: 01-02-2012 16:35-0400 Heart rate 423 ms [facility] Work Phone: 06-13-2011 16:20-0500 BP Diastolic 70 mm[Hg] [facility] Work Phone: 06-13-2011 16:20-0500 BP Systolic 110 mm[Hg] [facility] Work Phone: NEGATED: Highlighted [id number] 13:04-0500 BMI (Body Mass Index) 25.06 kg/m2 Roxanne Gilliam AT [facility] [place] [facility] Work Phone: NEGATED: Highlighted [id number] 13:04-0500 Body weight 81.19 kg Roxanne Gilliam AT [facility] Work Phone: NEGATED: Highlighted [id number] 13:04-0500 Body weight 81 kg Roxanne Gilliam AT [facility] Work Phone: NEGATED: Highlighted [id number] 13:04-0500 BP Diastolic 92 mm[Hg] Roxanne Gilliam AT [facility] Work Phone: NEGATED: Highlighted [id number] 13:04-0500 BP Diastolic 82 mm[Hg] Roxanne Gilliam AT [facility] [place] [facility] Work Phone: NEGATED: Highlighted [id number] 13:04-0500 BP Systolic 156 mm[Hg] Roxanne Gilliam AT [facility] [place] [facility] Work Phone: NEGATED: Highlighted [id number] 13:04-0500 BP Systolic 137 mm[Hg] Roxanne Gilliam AT [facility] Work Phone: NEGATED: Highlighted [id number] 13:04-0500 Height 180.34 cm Roxanne Gilliam AT [facility] Work Phone: NEGATED: Highlighted [id number] 13:04-0500 Height 180 cm Roxanne Gilliam AT [facility] Work Phone: NEGATED: Highlighted [id number] 13:04-0500 Pulse (Heart Rate) 71 /min Roxanne Gilliam AT [facility] Work Phone: Encounters Encounter Date Encounter Type Care Provider Facility Start: 12-31-2024 End: 12-31-[address] Gauri Vila DO Work Phone: -Laboratory Start: 12-31-2024 End: 12-31-[address] Spenser Winston MD -Laboratory Work Phone: Start: 12-31-2024 End: 12-31-2024 ambulatory Gauri Vila Facility:[facility] Start: 11-10-2024 End: 11-10-2024 Patient encounter procedure Carmen Garcia PA -[facility] Work Phone: Start: 11-10-2024 End: 11-10-[address] Gauri Vila DO Work Phone: -[facility] Start: 11-08-2024 End: 11-08-[address] Edwar Person MD -[facility] Work Phone: Start: 11-08-2024 End: 11-08-[address] Gauri Vila DO Work Phone: -[facility] Start: 11-06-2024 End: 11-06-[address] Gauri Vila DO Work Phone: -Laboratory Start: 11-06-2024 End: 11-06-2024 Patient encounter procedure Carmen CAST -Laboratory Work Phone: Start: 11-06-2024 End: 11-06-2024 ambulatory Gauri Vila Facility:[facility] Start: 11-01-2024 End: 11-01-[address] Edwar Person MD -[facility] Work Phone: Start: 11-01-2024 End: 11-01-[address] Gauri Vila DO Work Phone: -[facility] Start: 10-25-2024 End: 10-25-[address] Edwar Person MD -[facility] Work Phone: Start: 10-25-2024 End: 10-25-[address] Gauri Vila DO Work Phone: [facility] Work Phone: Start: 10-12-2024 End: 10-12-[address] Edwar Person MD -[facility] Work Phone: Start: 10-12-2024 End: 10-12-[address] Gauri Vila DO Work Phone: [facility] Work Phone: Start: 09-01-2024 End: 09-01-[address] Gauri Villa DO -[facility] Work Phone: Start: 09-01-2024 End: 09-01-2024 ambulatory Gauri Vila Facility:[facility] Start: 08-04-2024 ambulatory Adam Maloney Facility:[facility] Start: 08-04-2024 Non-patient / Non-visit Dr. Gillian BARRETO -[facility] Start: 08-04-2024 End: 08-04-2024 Patient encounter procedure Carmen CAST -[facility] Work Phone: Start: 08-04-2024 End: 08-04-2024 ambulatory Gauri Vila Facility:[facility] Start: 07-21-2024 End: 07-21-[address] Gauri Villa DO -[facility] Work Phone: Start: 07-21-2024 End: 07-21-[address] Gauri Vila DO Work Phone: [facility] Work Phone: Start: 07-21-2024 End: 07-21-2024 ambulatory Gauri Vila Facility:[facility] Start: 07-07-2024 End: 07-07-2024 Patient encounter procedure Carmen CAST -[facility] Work Phone: Start: 07-07-2024 End: 07-07-2024 ambulatory Gauri Vila Facility:[facility] Start: 07-05-2024 End: 07-05-[address] Gauri Vila DO Work Phone: [facility] Work Phone: Start: 07-05-2024 End: 07-05-2024 Patient encounter procedure Carmen Garcia PA -Laboratory Work Phone: Start: 07-05-2024 End: 07-05-2024 ambulatory Gauri Vila Facility:[facility] Start: 04-14-2024 End: 04-14-[address] Gauri Villa DO -[facility] Work Phone: Start: 04-14-2024 End: 04-14-2024 ambulatory Gauri Vila Facility:[facility] Start: 04-03-2024 End: 04-03-2024 Emergency department patient visit Dr. Lisa Fernnadez DO -Emergency Department Work Phone: Start: 04-03-2024 End: 04-03-2024 ambulatory ROSARIO Drake POMPEY Facility:[facility] Start: 04-03-2024 End: 04-03-2024 Patient encounter procedure Mandy CAST-C Work Phone: [facility] Comment on above: Left leg pain (Prima ry Dx); History of DVT (deep vein thrombosis) Start: 03-15-2024 End: 03-15-2024 ambulatory Gauri Vila Facility:[facility] Start: 02-04-2024 End: 02-04-2024 ambulatory Gauri Vila Facility:[facility] Start: 01-13-2024 End: 01-13-2024 ambulatory Gauri Vila Facility:[facility] Start: 07-15-2023 End: 07-15-2023 ambulatory BIB FRANZ [facility] Start: 07-15-2023 End: 07-15-2023 Office outpatient visit 15 minutes Bib Franz MD Work Phone: [facility] Comment on above: Goiter, nontoxic, mu ltinodular (Primary Dx) Start: 07-11-2023 End: 07-11-[address] Gauri Vila Work Phone: [facility] Work Phone: Start: 07-11-2023 End: 07-11-[address] Gauri Vila Work Phone: [facility] Work Phone: Start: 07-10-2023 End: 07-10-[address] Gauri Vila Work Phone: [facility] Work Phone: Start: 07-10-2023 End: 07-10-[address] Gauri Vila Work Phone: [facility], [facility] Work Phone: Start: 07-08-2023 Orders Only Bib Carvajal MD Work Phone: [facility] Comment on above: Goiter, nontoxic, mu ltinodular (Primary Dx) Start: 07-04-2023 End: 07-04-[address] Gauri Vila Work Phone: [facility] Work Phone: Start: 07-02-2023 End: 07-02-[address] Gauri Vila Work Phone: [facility] Work Phone: Start: 07-02-2023 End: 07-02-[address] Gauri Vila Work Phone: [facility] Work Phone: Start: 05-30-2023 End: 05-30-[address] Gauri Vila Work Phone: [facility] Work Phone: Start: 05-12-2023 End: 05-12-[address] Gauri Vila Work Phone: [facility] Work Phone: Start: 05-12-2023 End: 05-12-[address] Gauri Vila Work Phone: [facility] Work Phone: Start: 05-07-2023 End: 05-07-[address] Gauri Vila Work Phone: [facility] Work Phone: Start: 04-24-2023 End: 04-24-[address] Gauri Vila Work Phone: [facility] Work Phone: Start: 01-28-2023 End: 01-28-[address] Gauri Vila Work Phone: [facility] Work Phone: Start: 11-13-2022 End: 11-13-2022 ambulatory [facility] Work Phone: Start: 11-13-2022 End: 11-13-2022 [facility] Start: 09-20-2022 End: 09-20-2022 [facility] Start: 04-17-2022 End: 04-17-[address] Gauri Vila Work Phone: [facility] Work Phone: Start: 04-17-2022 End: 04-17-[address] [facility]aur[facility] Vila [facility] [place] Start: 04-10-2022 End: 04-10-[address] Gauri Vila Work Phone: [facility] Start: 04-08-2022 End: 04-08-[address] Gauri Vila Work Phone: [facility] Start: 01-22-2022 End: 01-22-[address] Gauri Vila Work Phone: [facility] Start: 01-09-2022 End: 01-10-2022 Emergency department patient visit Dr. Gauri Vila Work Phone: [facility] Start: 12-19-2021 End: 12-19-[address] Gauri Vila Work Phone: [facility] Start: 12-10-2021 End: 12-10-[address] Gauri Vila Work Phone: [facility] Start: 11-30-2021 End: 11-30-[address] Gauri Vlia Work Phone: [facility] Start: 11-19-2021 End: 11-19-2021 Admission to same day surgery center Dr. Gauri Vila Work Phone: [facility] Start: 11-14-2021 End: 11-14-[address] Gauri Vila Work Phone: [facility] Start: 11-13-2021 End: 11-13-[address] Gauri Vila Work Phone: [facility] Start: 10-24-2021 End: 10-24-[address] Gauri Vila Work Phone: [facility] Start: 10-17-2021 End: 10-17-2021 Emergency department patient visit Dr[facility]auri [facility] Start: 10-10-2021 End: 10-10-[address] Gauri Vila Work Phone: [facility] Start: 08-14-2021 End: 08-14-[address] Gauri Vila Work Phone: [facility] Start: 08-13-2021 Non-patient / Non-visit Dr. Lane Work Phone: [facility] Start: 08-13-2021 End: 08-13-[address] Gauri Vila Work Phone: [facility] Start: 07-03-2021 End: 07-03-[address] Gauri Vila Work Phone: [facility] Start: 08-23-2020 End: 08-23-2020 Office outpatient visit 15 minutes Bib Franz MD Work Phone: [facility] Comment on above: Nontoxic multinodula r goiter (Primary Dx) Start: 06-10-2020 End: 06-10-2020 Orders Only Jonna Goyalxavier Mix Work Phone: [facility] Start: 05-11-2020 End: 05-11-2020 Orders Only Bib Franz MD Work Phone: [facility] Comment on above: Nontoxic multinodula r goiter (Primary Dx) Start: 08-24-2018 End: 08-24-2018 Office outpatient visit 15 minutes Jacqui Olivas Work Phone: [facility] Comment on above: Multinodular goiter (nontoxic) (Primary Dx) Start: 04-24-2018 Patient encounter procedure Abel Servinh Facility:[facility] Start: 04-16-2017 Office/outpatient visit, est, level 3 Bib Franz Work Phone: [facility] Procedures Date Procedure Procedure Detail Performing Clinician Start: 12-31-2024 Assay of prostate specific antigen total Dr. Gauri Vila DO Work Phone: Comment on above: This test was perfor med using the [facility] tPSA method. Measured values of a patient sample can vary depending on the testing procedure used. PSA values determined on patient samples by different testing procedures cannot be used interchangeably. If there is a change in PSA assays while monitoring therapy, sequential testing should be performed to confirm baseline values. Start: 07-21-2024 X-ray of knee, four or more views Dr. Gauri Vila DO Work Phone: Start: 07-10-2023 US scan of thyroid Dr. Gauri Vila Work Phone: Start: 05-12-2023 Plain X-ray of shoulder Dr. Gauri Vila Work Phone: Start: 09-20-2022 CT of abdomen and pelvis without contrast Start: 11-14-2021 Plain chest X-ray Dr. Drake Vila Work Phone: Start: 10-17-2021 X-ray of lumbar spin e, two or three views Dr. 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 Stephen Grant NP Work Phone: Start: 11-08-2016 End: 11-08-2016 Follow Up Appt 6 months Stephen Grant NP Work Phone: Start: 10-11-2016 End: 10-18-2016 *Hepatic [...] Adam Maloney MD Start: 10-24-2015 End: 10-24-2015 MMM Adam Maloney MD Start: 10-17-2015 End: 10-23-2015 [...] PA-C Work Phone: Start: 10-06-2014 End: 10-06-2014 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 Carmen Garcia PA-C Work Phone: Start: 10-06-2014 [...] [AGGREGATE] Dominga Mcconnell Start: 10-14-2013 End: 10-14-2013 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Silvina Maloney MD Start: 10-14-2013 End: 10-14-2013 Follow Up Appt 6 months Dominga Mcconnell Start: 10-14-2013 End: 10-14-2013 VERO Maloney MD Start: 09-02-2013 End: 09-02-2013 Follow Up Appt Other Carmen mejia PA-C Work Phone: Start: 09-02-2013 End: 09-28-2015 Nuclear stress test -exercise Carmen Garcia PA-C Work Phone: Start: 06-24-2013 End: 06-24-2013 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 Carmen Garcia PA-C Work Phone: Start: 06-24-2013 [...] Up Appt 6 months Pasha Herrmann MD Start: 05-16-2010 History of placement of stent for coronary artery disease History of coronary artery stent placement Carmen CAST Comment on above: LGP-YAY-Crsg LAD and POBA-D1 05/16/2010 NEGATED: Highlighted rowStart: 03-25-2019 End: 03-25-2019 Documentation of current medications Roxanne Gilliam AT Plan of Treatment Date Care Activity Detail Author Start: 11-07-2029 Tetanus vaccination Tetanus: Every 1 0yrs [facility] Start: 11-07-2029 Urine microalbumin profile DTaP,Tdap,Td Vaccine (3 - Td or Tdap) [facility] Start: 01-10-2025 Tetanus vaccination Tetanus: Every 1 0yrs [facility] Start: 09-01-2024 Patient referral [facility] Work Phone: Start: 04-03-2024 [facility] Start: 01-04-2024 Covid-19 Vaccine ( season) Covid-19 Vaccine () [facility] Start: 05-12-2023 Patient referral [facility] Work Phone: Start: 05-07-2023 Patient referral [facility] Work Phone: Start: 05-05-2023 Advance Directive Discussion Advance Directive Discussion [facility] Start: 01-28-2023 Patient referral [facility] Work Phone: Start: 01-03-2023 COVID-19 Vaccine ( season) COVID-19 Vaccine () [facility] Start: 01-03-2023 Influenza vaccination Sequenti al Influenza Vaccine (#1) [facility] Start: 2022 RSV Vaccine (1 - 1-d ose 75+ series) RSV Vaccine (1 - 1-dose 75+ series) [facility] Start: 11-30-2021 Patient referral [facility] Work Phone: Start: 11-19-2021 Catheterization of l eft heart [facility] Work Phone: Start: 10-24-2021 Patient referral [facility] Work Phone: Start: 10-10-2021 Patient referral [facility] Work Phone: Start: 07-03-2021 Patient referral [facility] Work Phone: Start: 08-23-2020 End: 08-23-2020 Office Visit [facility] Start: 01-04-2020 Influenza vaccinatio n given Sequential Influenza Vaccine (#1) [facility] Start: 04-16-2019 Ambulatory 04/16/2019 Off ice Visit Endocrinology Bib Franz MD [address] [address] [phone] [facility] Start: 03-25-2019 End: 03-25-2019 Radex spine cervical 4 or 5 views XR CERVICAL 4VWS FLEX/EXT [facility] Work Phone: Start: 01-03-2018 Influenza vaccinatio n given SEQUENTIAL INFLUENZA VACCINE (#1) [facility] Start: 05-07-2017 End: 05-07-2017 Appointment Appointment [facility] Work Phone: Start: 04-21-2017 End: 04-29-2017 *Hepatic Function Panel *Hepatic Function Panel [facility] Work Phone: Start: 04-21-2017 End: 04-29-2017 Lipid panel [AGGREGATE] *Lipid Profile CC PCP [facility] Work Phone: Start: 01-03-2017 Influenza vaccination SEQUENTI AL INFLUENZA VACCINE (#1) [facility] Work Phone: Start: 11-08-2016 End: 11-08-2016 Appointment Appointment [facility] Work Phone: Start: 11-08-2016 End: 11-08-2016 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 [facility] Work Phone: Start: 11-08-2016 End: 11-08-2016 Follow Up Appt 6 months Follow Up Appt 6 months [facility] Work Phone: Start: 10-29-2016 End: 10-29-2016 Appointment Appointment [facility] Work Phone: Start: 10-29-2016 End: 10-29-2016 Appointment Appointment [facility] Work Phone: Start: 10-11-2016 End: 10-18-2016 *Hepatic Function Panel *Hepatic Function Panel [facility] Work Phone: Start: 10-11-2016 End: 10-18-2016 Lipid panel [AGGREGATE] *Lipid Profile CC PCP [facility] Work Phone: Start: 04-24-2016 End: 04-12-2016 *Hepatic Function Panel *Hepatic Function Panel [facility] Work Phone: Start: 04-24-2016 End: 04-12-2016 Lipid panel [AGGREGATE] *Lipid Profile CC PCP [facility] Work Phone: Start: 10-24-2015 End: 10-24-2015 Follow Up Appt 1 year Follow Up Appt 1 year [facility] Work Phone: Start: 10-24-2015 End: 10-24-2015 [facility] Work Phone: Start: 10-17-2015 End: 10-23-2015 *Hepatic Function Panel *Hepatic Function Panel [facility] Work Phone: Start: 10-17-2015 End: 10-23-2015 Lipid panel [AGGREGATE] *Lipid Profile CC PCP [facility] Work Phone: Start: 04-21-2015 End: 04-21-2015 Electrocardiogram, complete EKG (In office) [facility] Work Phone: Start: 04-21-2015 End: 04-21-2015 Follow Up Appt 6 months Follow Up Appt 6 months [facility] Work Phone: Start: 04-21-2015 End: 04-21-2015 [facility] Work Phone: Start: 04-04-2015 End: 04-17-2015 *Hepatic Function Panel *Hepatic Function Panel [facility] Work Phone: Start: 04-04-2015 End: 04-17-2015 Lipid panel [AGGREGATE] *Lipid Profile CC PCP [facility] Work Phone: Start: 10-06-2014 End: 10-06-2014 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 [facility] Work Phone: Start: 10-06-2014 End: 10-06-2014 Follow Up Appt 6 months Follow Up Appt 6 months [facility] Work Phone: Start: 09-26-2014 End: 10-03-2014 *Hepatic Function Panel *Hepatic Function Panel [facility] Work Phone: Start: 09-26-2014 End: 10-03-2014 Lipid panel [AGGREGATE] *Lipid Profile CC PCP [facility] Work Phone: Start: 04-05-2014 End: 04-05-2014 Follow Up Appt 6 months Follow Up Appt 6 months [facility] Work Phone: Start: 04-05-2014 End: 04-05-2014 [facility] Work Phone: Start: 12-03-2013 End: 03-28-2014 *Hepatic Function Panel *Hepatic Function Panel [facility] Work Phone: Start: 12-03-2013 End: 03-28-2014 Lipid panel [AGGREGATE] *Lipid Profile CC PCP [facility] Work Phone: Start: 10-14-2013 End: 10-14-2013 [facility] Work Phone: Start: 10-14-2013 End: 10-14-2013 Follow Up Appt 6 months Follow Up Appt 6 months [facility] Work Phone: Start: 10-14-2013 End: 10-14-2013 [facility] Work Phone: Start: 09-02-2013 End: 09-02-2013 Follow Up Appt Other Follow Up Appt Other [facility] Work Phone: Start: 09-02-2013 End: 09-02-2013 Nuclear stress test -exercise Nuclear stress test -exercise [facility] Work Phone: Start: 06-24-2013 End: 06-24-2013 [facility] Work Phone: Start: 06-24-2013 End: 06-24-2013 Follow Up Appt 6 months Follow Up Appt 6 months [facility] Work Phone: Start: 06-24-2013 End: 06-24-2013 Follow Up Appt Other Follow Up Appt Other [facility] Work Phone: Start: 06-05-2013 End: 06-28-2013 *BMP *BMP [facility] Work Phone: Start: 06-05-2013 End: 06-29-2013 *Hepatic Function Panel *Hepatic Function Panel [facility] Work Phone: Start: 06-05-2013 End: 06-29-2013 Lipid panel [AGGREGATE] *Lipid Profile CC [facility]CP [facility] Work Phone: Start: 03-23-2013 End: 03-23-2013 *BMP *BMP [facility] Work Phone: Start: 03-23-2013 End: 03-23-2013 CBC W Auto Differential panel - Blood *CBC without Diff [facility] Work Phone: Start: 03-23-2013 End: 09-02-2013 Chest x-ray X-Ray, Chest, PA & Lateral [facility] Work Phone: Start: 03-23-2013 End: 03-23-2013 Coagulation factor induced.INR assay in platelet poor plasma *PT/INR [facility] Work Phone: Start: 03-23-2013 End: 03-23-2013 Electrocardiogram, complete EKG (In office) [facility] Work Phone: Start: 03-23-2013 End: 03-23-2013 Left Heart Cath Left Heart Cath [facility] Work Phone: Start: 03-15-2013 Administration of he rpes zoster vaccine Zoster Vaccines (2 of 3) [facility] Start: 03-15-2013 Shingrix Vaccine (2 of 3) Shingrix Vaccine (2 of 3) [facility] Start: 12-22-2012 End: 12-22-2012 Follow Up Appt 6 months Follow Up Appt 6 months [facility] Work Phone: Start: 12-22-2012 End: 12-22-2012 MMM MMM [facility] Work Phone: Start: 12-03-2012 End: 12-28-2012 *Hepatic Function Panel *Hepatic Function Panel [facility] Work Phone: Start: 12-03-2012 End: 12-28-2012 Lipid panel [AGGREGATE] *Lipid Profile [facility] Work Phone: Start: 06-05-2012 End: 04-01-2012 *Hepatic Function Panel *Hepatic Function Panel [facility] Work Phone: Start: 06-05-2012 End: 06-17-2012 Lipid panel [AGGREGATE] *Lipid Profile [facility] Work Phone: Start: 2012 Fall risk assessment Falls Risk Asse ssment [facility] Start: 2012 Pneumococcal vaccination PNEUM OCOCCAL VACCINE AGE 65+ (1 of 2 - PCV13) [facility] Work Phone: Start: 2012 Ultrasound scan of abdominal aorta ABDOMINAL AORTIC ULTRASOUND [facility] Work Phone: Start: 01-02-2012 End: 01-02-2012 Electrocardiogram, complete EKG (In office) [facility] Work Phone: Start: 01-02-2012 End: 01-03-2012 Follow Up Appt 1 year Follow Up Appt 1 year [facility] Work Phone: Start: 12-04-2011 End: 12-23-2011 *Hepatic Function Panel *Hepatic Function Panel [facility] Work Phone: Start: 12-04-2011 End: 12-23-2011 Lipid panel [AGGREGATE] *Lipid Profile [facility] Work Phone: Start: 06-13-2011 End: 06-13-2011 Follow Up Appt 6 months Follow Up Appt 6 months [facility] Work Phone: Start: 2007 Hepatitis B Vaccine (1 of 3 - Risk 3-dose series) Hepatitis B Vaccine (1 of 3 - Risk 3-dose series) [facility] Start: 2007 Zoster vacc, sc ZOSTER VACCINE [facility] Work Phone: Start: 1997 Administration of he rpes zoster vaccine Zoster Vaccines (1 of 2) [facility] Start: 1997 Screening for malign ant neoplasm of colon [facility] Start: 1992 Diabetes Screening Diabetes Screenin g [facility] Start: 1966 Hepatitis A Vaccine (1 of 2 - Risk 2-dose series) Hepatitis A Vaccine (1 of 2 - Risk 2-dose series) [facility] Start: 1965 Anxiety Screening Anxiety Screening [facility] Start: 1965 Depression Screening Depression Scre ing [facility] Start: 1965 Hepatitis C antibody , confirmatory test Hepatitis C Screening [facility] Start: 1965 Hepatitis C screening Hepatitis C Sc reening [facility] Start: 1963 COVID-19 Vaccine (1 of 2) COVID-19 Vaccine (1 of 2) [facility] Start: 1959 Adolescent depressio n screening assessment Depression Screening (PHQ9) [facility] Start: 1959 Depression screening using PHQ-9 (Patient Health Questionnaire 9) score [facility] Start: 1950 History and physical examination, annual for health maintenance Wellness Visit [facility] Start: 1947 Fall risk assessment Falls Risk Asse ssment [facility] Start: 1947 Hepatitis C antibody , confirmatory test HEPATITIS C SCREENING [facility] Start: 1947 HEPATITIS C SCREENING HEPATITIS C SC REENING [facility] Work Phone: Start: 1947 Prostate specific antigen measurement PSA Level [facility] Start: 1947 Screening colonoscopy COLONOSCOPY O [facility] Work Phone: Start: 1947 Screening for malign ant neoplasm of colon Colorectal Cancer Screening: Colonoscopy [facility] Start: 1947 Tetanus vaccination TETANUS EVERY 10 YR [facility] Work Phone: Start: 1947 US scan of abdominal aorta Abdominal Aortic Ultrasound [facility] Catheterization of l eft heart [facility] Work Phone: Patient Education [facility] Work Phone: Patient referral [facility] Work Phone: End: 08-25-2019 T4 free mass conc T4, Free Routine Multinodular goiter (nontoxic) 1 Occurrences starting 08/24/2018 until 08/25/2019 [facility] Comment on above: 1 Occurrences starti ng 08/24/2018 until 08/25/2019 End: 05-11-2021 Thyrotropin [Units/volume] in Serum or Plasma TSH Lab Routine Nontoxic multinodular goiter 1 Occurrences starting 05/11/2020 until 05/11/2021 [facility] Comment on above: 1 Occurrences starti ng 05/11/2020 until 05/11/2021 End: 07-08-2024 Thyrotropin [Units/volume] in Serum or Plasma TSH Lab Routine Goiter, nontoxic, multinodular 1 Occurrences starting 07/08/2023 until 07/08/2024 [facility] Comment on above: 1 Occurrences starti ng 07/08/2023 until 07/08/2024 End: 08-25-2019 Thyrotropin Qn TSH Routine Multinodular goiter (nontoxic) 1 Occurrences starting 08/24/2018 until 08/25/2019 [facility] Comment on above: 1 Occurrences starti ng 08/24/2018 until 08/25/2019 End: 04-17-2018 Thyroxine (T4) free T4, Free Routine Multinodular goiter (nontoxic) 1 Occurrences starting 04/16/2017 until 04/17/2018 [facility] Work Phone: End: 01-07-2022 Thyroxine (T4) free [Mass/volume] in Serum or Plasma T4, Free Lab Routine Nontoxic multinodular goiter 1 Occurrences starting 05/11/2020 until 05/11/2021 [facility] Comment on above: 1 Occurrences starti ng 05/11/2020 until 05/11/2021 End: 07-08-2024 Thyroxine (T4) free [Mass/volume] in Serum or Plasma T4, Free Lab Routine Goiter, nontoxic, multinodular 1 Occurrences starting 07/08/2023 until 07/08/2024 [facility] Comment on above: 1 Occurrences starti ng 07/08/2023 until 07/08/2024 End: 04-17-2018 TSH TSH Routine Multinodular goiter (nontoxic) 1 Occurrences starting 04/16/2017 until 04/17/2018 [facility] Work Phone: [facility] End: 04-17-2018 US Thyroid US Thyroid Routine Multinodular goiter (nontoxic) 1 Occurrences starting 04/16/2017 until 04/17/2018 [facility] Work Phone: End: 07-08-2024 US Thyroid gland US Thyroid Only Imaging Routine Goiter, nontoxic, multinodular 1 Occurrences starting 07/08/2023 until 07/08/2024 [facility] Work Phone: Comment on above: 1 Occurrences starti ng 07/08/2023 until 07/08/2024 XR Knee 3 Views [facility] Immunizations Immunization Date Immunization Notes Care Provider Bennie bush 02-04-2024 Seasonal trivalent influenza vaccine, adjuvanted, preservative free Dr. Gauri Vila DO Work Phone: [facility] 07-03-2021 pneumococcal vaccine , unspecified formulation Dr. Gauri Vila Work Phone: [facility] Work Phone: 07-03-2021 pneumococcal polysaccharide vaccine, [address] Gauri Vila Work Phone: [facility] 07-13-2020 Covid (Edis & Edis) Dr. Gauri Vila Work Phone: [facility] 02-17-[address] Gauri Vila Work Phone: [facility] 11-08-2019 tetanus toxoid, redu brittni diphtheria toxoid, and acellular pertussis vaccine, adsorbed Dr. Gauri Vila Work Phone: [facility] 01-22-2019 influenza, injectabl e, quadrivalent, preservative free Dr. Gauri Vila Work Phone: [facility] 01-22-2019 influenza, seasonal, injectable Dr. Gauri Vila Work Phone: [facility] 02-16-[address] Corrine Vila Work Phone: [facility] Work Phone: 02-16-2014 pneumococcal vaccine , unspecified formulation Dr. Gauri Vila Work Phone: [facility] Payers Date Payer Category Payer Self-pay [id number] 2023 Private Health Insurance [facility] AARP SUPPLEMENT [id number] 2023-Present [phone] [address] [place] [address] Indemnity [id number] 2015 Unknown [id number] 3 2015 Unknown [employer]ARP [employer] [id number] 2015-Present [id number] 2015 Unknown AARP A[employer] CIAL [id number] 2015-Present [id number] 2015 Unknown AARP [employer] [id number] 2015-Present [phone] [address] [place] [address] [id number] 2012 Medicare MEDICARE MEDICAR E PART A & B xxxxxxxxxx 2012-Present [place] xxxxxxxxxx [id number] 2012 Medicare MEDICARE MEDICAR E PART A & B [id number] 2012-Present [place] [id number] 2012 Medicare [id number] 2012 Medicare [id number] 1945 Unknown [id number] .903 1945 Unknown [id number] .903 Medicare [id number] 3 Unknown [id number] 2.16.840.1.308800.3.579.2 .273 Unknown [id number] 2.16.840.1.688478.3.579.2 .462 Unknown [id number] 2.16.840.1.035596.3.579.2 .462 Unknown [id number] 2.16.840.1.151063.3.579.2 .462 Unknown [id number] 2.16.840.1.207937.3.579.2 .462 Unknown [id number] 2.16.840.1.842757.3.579.2 .462 Unknown [id number] 2.16.840.1.295629.3.579.2 .462 Unknown [id number] 2.16.840.1.644562.3.579.2 .462 Unknown [id number] 2.16.840.1.946583.3.579.2 .462 Unknown [id number] 2.16.840.1.931933.3.579.2 .462 Unknown [id number] 2.16.840.1.852971.3.579.2 .462 Unknown [id number] 2.16.840.1.369352.3.579.2 .462 Unknown [id number] 2.16.840.1.247724.3.579.2 .462 Unknown [id number] 2.16.840.1.725491.3.579.2 .462 Unknown [id number] 2.16.840.1.629327.3.579.2 .462 Unknown [id number] 2.16.840.1.818011.3.579.2 .462 Unknown [id number] 2.16.840.1.569677.3.579.2 .462 Unknown [id number] 2.16.840.1.035903.3.579.2 .462 Unknown [id number] 2.16.840.1.260296.3.579.2 .462 Unknown [id number] 2.16.840.1.740325.3.579.2 .462 Social History Date Type Detail Facility Start: 04-16-2017 End: 04-03-2024 Tobacco smoking status [facility] Former smoker [facility] Work Phone: Start: 05-04-1965 End: 05-04-1980 History of tobacco use Current smoker [employer] Work Phone: Start: 1945 Sex Assigned At Not on file [facility] Work Phone: Start: 08-14-2021 End: 07-04-2023 Assertion Unknown if ever smoked [facility] Work Phone: Start: 08-24-2018 End: 04-03-2024 Tobacco use and exposure [facility] Start: 08-24-2018 End: 04-03-2024 Alcohol intake Current non-drinker of alcohol (finding) [facility] Exposure to SARS-CoV-2 (event) Not sure [facility] Start: 10-24-2020 None [facility] Start: 02-15-2014 Spouse/ Signif icant Other [facility] Start: 10-24-2020 Non-smoker [facility] Start: 1945 Sex Assigned At Male W [facility] Start: 05-04-1965 End: 05-04-1980 History of tobacco use Cigarette Smoker [facility] Start: 08-23-2020 End: 04-03-2024 History of Social function [facility] Start: 08-23-2020 End: 04-03-2024 Tobacco use panel [facility] Start: 07-16-2024 End: 07-30-2024 Sex Male (finding) [facility] NEGATED: Highlighted rowStart: 03-25-2019 End: 03-25-2019 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 [place], [place] [address] OFFICE VISIT Date of Service: 11/10/24 MR#: [id number] Acct: [id number] Name: ARTURO CORONADO Rep #: [id number] : 1945 Provider: SEGUN Garcia Age/Sex: 79/M [place] [facility] [place]: Signed HPI HPI History of Present Illness Details: Arturo Coronado is a 79 year old gentleman with a history of coronary artery disease status post angioplasty and stenting of the left anterior descending artery, and diagonal vessel. He also has a history of hypertension and hyperlipidemia and obstructive sleep apnea. His last catheterization was in 2013demonstrated no significant obstructive coronary disease. He had a repeat heartcatheterization from November 2021 which demonstrated nonobstructive coronary arterydisease with previously placed stent to his LAD patent. He does continue to have chest pain that radiates around to his back. It is on the right. He does not feel that this is cardiac. It can last hours. He does not need to use any NTG. He feels that this is the same as what he has been having for years. His Bp at home has been stable. Activity torres, he chopped woosfor a few months without issues. He did not have any chest pain with this. 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 Accompanied by: Self Is patient in pain?: No Allergies niacin (From Niaspan Extended-Release) Allergy (Verified 11/10/24 14:59) Extreme Itching cyclobenzaprine Adverse Reaction (Unknown, Verified 11/10/24 14:59) Heart feels like wants to stop Medications ?Medication ?Instructions ?Recorded ?Confirmed ?Type coenzyme [id number] 100 mg-20 1 ea PO DAILY 03/2511/10/24 History mg capsule multivitamin with folic acid 400 1 tab PO DAILY 11/10/24 History mcg tablet omega-3 fatty acids 1,000 mg 1,000 mg PO DAILY 9 11/10/24 History capsule aspirin 81 mg chewable tablet 81 mg PO DAILY #90 tabs 08/15/20 11/10/24 Rx nitroglycerin 0.4 mg sublingual 0.4 mg sublingual Q5-1 5M PRN chest 07/04/23 11/10/24 Rx tablet (Nitrostat) pain #25 tabs magnesium 200 mg tablet 200 mg PO QDAY 01/13/24 07/01/27 History pregabalin 50 mg capsule 50 mg PO QHS PRN neck pain # 90 caps 02/05/24 11/10/24 Rx lisinopril 10 mg tablet 10 mg PO BID #180 tabs 06/0211/10/24 Rx atorvastatin 80 mg tablet See Rx Instructions .Route 0 07/26/24 11/10/24 Rx .COMPLEX #90 tabs metoprolol tartrate 50 mg tablet 50 mg PO BID #180 tab s 07/26/24 11/10/24 Rx clopidogrel 75 mg tablet See Rx Instructions .Route 0 09/22/24 11/10/24 Rx .COMPLEX #90 tabs amlodipine 2.5 mg tablet 2.5 mg PO DAILY #90 tabs 11/10/24 Rx Ejection fraction %: 55 Have you fallen in the past year?: Yes (slipped on ice in driveway) [facility] Medical History Osteoarthritis of left knee Right shoulder strain Scabies Thyroid goiter Back pain due to injury Family history of colon cancer Seborrheic keratoses Cervical disc disease Cervical cord compression with myelopathy Painful neck Swallowing problem Chronic back pain Nonrheumatic mitral (valve) prolapse Essential (primary) hypertension Back pain Obstructive sleep apnea GERD (gastroesophageal reflux disease) Atherosclerosis of coronary artery of [place] heart without angina pectoris Hyperlipidemia Surgical History History of orthopedic surgery History of facial surgery History of shoulder surgery H/O right knee surgery History of left heart catheterization (11/19/21) History of coronary artery stent placement (05/16/10) Family History Father CAD (coronary artery disease) Diabetes Heart disease Myocardial infarction Hypertension Mother Heart disease Diabetes CVA (cerebral vascular accident) Sister Breast cancer Colon cancer Brother Colon cancer Social History household members: spouse housing: house current occupational status: retired Smoking Status: Former smoker how long ago did patient quit smokin alcohol intake: former substance use type: does not use what type of physical activity do you participate in: walking and bicycling frequency: daily seatbelt use: always do you feel safe at home: Yes ROS Const Const: Negative for fatigue or weakness Eyes Eyes: Negative for change in vision ENT ENT: Negative for dizziness or balance problems Cardio Chest Pain: Yes (past weekend) Character: dull Location: right chest Duration: hours Palpitations: No Edema: None Resp Respiratory: Negative for SOB with activity, SOB at rest or SOB orthopnea\SOB lying down GI GI: Negative nausea or heartburn Musc Musc: Negative for balance problems Neuro Neuro: Negative for dizziness, lightheadedness, near syncope, syncope or weakness Endo Endo: Negative for fatigue Cardiology Exam Const Appearance: cooperative, healthy appearing, comfortable, no acute distress and well developed Orientation: alert, awake and oriented x3 Head Head: normal to inspection Ears: hearing grossly normal bilaterally Nose: external nose normal Face and Sinus: face symmetric Mouth: oral mucosae normal, lip normal and moist mucous membranes Eyes General: appearance normal, both eyes and all related structures Eyelids: eyelids normal Conjunctivae: conjunctivae normal Pupils: PERRL EOM: EOM intact bilaterally Neck Neck: normal visual inspection and trachea midline; Negative no JVD Carotids: Negative bruit Chest Chest inspection: normal inspection of the chest Auscultation: Bilateral: Clear to Auscultation Cardio Palpation: normal PMI Rate: regular rate Rhythm: regular rhythm Heart sounds: S1 normal, S2 normal and murmur; Negative rub or gallop Murmur: Grade 2/6 GI GI: soft, no hepatosplenomegaly and bowel sounds present Neuro General: patient alert, patient awake, patient oriented x3 and CN's II-XI intactbilaterally Extremities Pulses: Normal: Right Posterior Tibial Pulse, Left Posterior Tibial Pulse, RightRadial Pulse and Left Radial Pulse Lower Extremity Edema: None: Bilateral Supplemental Info Supplemental Information Echo Complete 08/2024 Interpretation Summary Hypermobile atrial septum. Normal LV size. Left ventricular systolic function is normal. The left ventricular ejection fraction is 55 %. Mild mitral valve prolapse, anterior leaflet Mild-Moderate (1-2+) eccentric mitral valve insufficiency. Stage 1 diastolic dysfunction. Pulmonary artery systolic pressure is 36 mmHg. Stress Test Report 07-04-2020 Impression: 1. Rest and stress SPECT Cardiolite nuclear imaging demonstrate relatively normal tracer uptake and myocardial perfusion appearing within normal limits with no myocardial perfusion changes considered diagnostic for associated stress-induced myocardial ischemia. 2. The gated Cardiolite study reports an LVEF of 69%. Cardiac cath 11/19/2021: Non obstructive coronary arteries Previously placed stent patent.Normal LVEF CORONARY ANGIOGRAPHY DOMINANCE:? Right Dominant LEFT HEART ASSESSMENT Left Ventricular Ejection Fraction: by LV Gram 55 % Normal Left Ventricular systolic function LEFT MAIN: Angiographically normal LEFT ANTERIOR DESCENDING ARTERY: Mild luminal irregularities MID LAD: Previously placed stent is patent CIRCUMFLEX ARTERY: Mild luminal irregularities less than 30% RIGHT CORONARY ARTERY: PROX RCA: 40 % Stenosis MID RCA: Mild luminal irregularities DISTAL RCA: Mild luminal irregularities Labs: HDL Cholesterol 41 mg/dL (40-) Cholesterol 130 mg/dL (<=200) Triglycerides 72 mg/dL (-199) Diagnostics: Echocardiogram Pulmonary: No Data to Display Past Visits: Cardiology Visit 11/10/24 Assessment and Plan Assessment and Plan (1) Essential (primary) hypertension: Status: Chronic Plan: They seem to be controlled at this time although he does have elevated readings. Have asked him to monitor this at home. Will have him return in 4 months to monitor closely. (2) Hyperlipidemia: Status: Chronic Qualifiers: Hyperlipidemia type: pure hypercholesterolemia Qualified Code(s): E78.00 - Pure hypercholesterolemia, unspecified; E78.00 - Pure hypercholesterolemia, unspecified; E78.00 - Pure hypercholesterolemia, unspecified; E78.0 - Pure hypercholesterolemia Plan: Laboratory Tests 11/06/24 09:56 Cholesterol 130 LDL Cholesterol, Calc 74 HDL Cholesterol 41 These are managed by his PCP, he will continue with current dose of statin. (3) Nonrheumatic mitral (valve) prolapse: Status: Chronic Plan: This is mild, will continue to monitor with echocardiograms as deemed appropriate. (4) History of coronary artery stent placement: Status: Resolved Comment: [id number] LAD and POBA-D1 05/16/2010 Plan: Stable, patient does not have any symptoms of angina. Did review heart cath [id number]. We will continue with current medical management. If he has any chest pain that is concerning he will go to the ER. 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) Coding Level of Care Code Off vis,est,level 4 Diagnoses Essential (primary) hypertension I10 Pure hypercholesterolemia E78.00; E78.00; E78.00; E78.0 Hyperlipidemia type: pure hypercholesterolemia Nonrheumatic mitral (valve) prolapse I34.1 History of coronary artery stent placement Z95.5 Coding Level of Care Code Off vis,est,level 4 Diagnoses Essential (primary) hypertension I10 Pure hypercholesterolemia E78.00; E78.00; E78.00; E78.0 Hyperlipidemia type: pure hypercholesterolemia Nonrheumatic mitral (valve) prolapse I34.1 History of coronary artery stent placement Z95.5 Clinical Quality Measures Falls Risk Screening/Assistive Devices Have you fallen in the past year?: Yes (slipped on ice in driveway) Cardiac Ejection fraction %: 55 11/10/24 1533 <Electronically signed by Carmen Medina> Date _ Carmen CAST Cosigner Signature: Date (if applicable) CC: Dr. Gauri Vila, DO ~ [facility] Work Phone: [phone]) 637-563207-07-2025 [facility] [address] [place] [address] OFFICE VISIT Date of Service: 11/08/24 MR#: [id number] Acct: [id number] Name: CORONADOARTURO René Rep #: [id number] : 1945 Provider: Dr. Tristen Person MD Age/Sex: 79/M Location[place] [facility] [place] Status: Signed Intake Vital Signs 10/12/24 14:20 10/25/24 13:37 Height 5 ft 11 in 5 ft 11 in Weight: 175 lb BMI 24.4 Intake Visit Reasons: LEFT KNEE Chief Complaint: 3rd Euflexxa left knee injection Is patient in pain?: Yes Allergies niacin (From Niaspan Extended-Release) Allergy (Verified 11/08/24 13:42) Extreme Itching cyclobenzaprine Adverse Reaction (Unknown, Verified 11/08/24 13:42) Heart feels like wants to stop Medications ?Medication ?Instructions ?Recorded ?Confirmed ?Type coenzyme T41-J-wdbwstxrj 100 mg-20 1 ea PO DAILY 03/2511/08/24 History mg capsule multivitamin with folic acid 400 1 tab PO DAILY 11/08/24 History mcg tablet omega-3 fatty acids 1,000 mg 1,000 mg PO DAILY 9 11/08/24 History capsule aspirin 81 mg chewable tablet 81 mg PO DAILY #90 tabs 08/15/20 11/08/24 Rx nitroglycerin 0.4 mg sublingual 0.4 mg sublingual Q5-1 5M PRN chest 07/04/23 11/08/24 Rx tablet (Nitrostat) pain #25 tabs magnesium 200 mg tablet 200 mg PO QDAY 01/13/2411/26 History pregabalin 50 mg capsule 50 mg PO QHS PRN neck pain # 90 caps 02/05/24 11/08/24 Rx lisinopril 10 mg tablet 10 mg PO BID #180 tabs 06/0211/08/24 Rx atorvastatin 80 mg tablet See Rx Instructions .Route 0 07/26/24 11/08/24 Rx .COMPLEX #90 tabs metoprolol tartrate 50 mg tablet 50 mg PO BID #180 tab s 07/26/24 11/08/24 Rx clopidogrel 75 mg tablet See Rx Instructions .Route 0 09/22/24 11/08/24 Rx .COMPLEX #90 tabs amlodipine 2.5 mg tablet 2.5 mg PO DAILY #90 tabs 11/08/24 Rx Have you fallen in the past year?: Yes [facility] Medical History Osteoarthritis of left knee Right shoulder strain Scabies Thyroid goiter Back pain due to injury Family history of colon cancer Seborrheic keratoses Cervical disc disease Cervical cord compression with myelopathy Painful neck Swallowing problem Chronic back pain Nonrheumatic mitral (valve) prolapse Essential (primary) hypertension Back pain Obstructive sleep apnea GERD (gastroesophageal reflux disease) Atherosclerosis of coronary artery of [place] heart without angina pectoris Hyperlipidemia Surgical History History of orthopedic surgery History of facial surgery History of shoulder surgery H/O right knee surgery History of left heart catheterization (11/19/21) History of coronary artery stent placement (05/16/10) Family History Father CAD (coronary artery disease) Diabetes Heart disease Myocardial infarction Hypertension Mother Heart disease Diabetes CVA (cerebral vascular accident) Sister Breast cancer Colon cancer Brother Colon cancer Social History household members: spouse housing: house current occupational status: retired Smoking Status: Former smoker how long ago did patient quit smokin alcohol intake: former substance use type: does not use what type of physical activity do you participate in: walking and bicycling frequency: daily seatbelt use: always do you feel safe at home: Yes HPI LEFT KNEE Details: This documentation accurately reflects the service provided and the decisions made by me, Dr. Sherie MD 11/08/24 4577. Part of today?s visit was documented by [ ], acting as scribe. ARTURO CORONADO is a 79 year old M here today for L knee OA, euflexxa 07/05. He hadsome bleeding last time he is on a blood thinner. Minimal relief so far Office Procedures Euflexxa Procedure Details:: Obtained consent for injection. Under sterile conditions, injected the patientsleft knee with 2mL Euflexxa. The patient tolerated the injection well without any noted complication. Patient should call our office if redness develops, pain worsens or if they have any concerns. Is this Buy & Bill?: Yes Office Meds Euflexxa 10 mg/mL (mw 2.4-3.6 million) intra-articular syringe Performing Provider: Edwar Person MD Performing Location: [facility] Administered by: Edwar Person MD on 11/08/24 13:41 Dose Route Admin Location Dispensed Lot Number Expiration Date NDC Tutor 10 mg intra-articular left knee 2 mL [id number] 03/08/25 [address]-3 [employer] Coding Level of Care Code Attention Jeffrey Diagnoses Osteoarthritis of left knee M17.12 Comment Left knee intra-articular Euflexxa injection Assessment and Plan Assessment and Plan (1) Osteoarthritis of left knee: Status: Acute Plan: L knee OA, euflexxa 3/3. FU 3 months of PRN. Encouraged him to stay with some pressure on the injection site for couple minutes this time doing the blood thinner. Left knee intra-articular Euflexxa injection We discussed the pros and cons risks and benefits of going ahead with left knee intra-articular Euflexxa injection. The risks include but are not limited to infection, pain, acute flare reaction, stiffness, bleeding, damage to surrounding structures, worsening arthritis or damage to the cartilage. The patient wished to proceed. The anterior aspect of the knee was prepped with chlorhexidine in theusual sterile fashion. Sterile no touch technique was employed. Used Gebauer spray per bottle instructions. 2cc Euflexxa was injectedinto the intra-articular portion of the knee. The patient tolerated procedure well. Bandage placed. There is no complications. Standard post procedure care instructions were given. Red flag symptoms were discussed in which case to return to clinic immediately or go to the emergency department such as redness, swelling, fever, discharge, drainage, increase pain or other symptoms. Orders: Orders Euflexxa Injection Today Clinical Quality Measures Falls Risk Screening/Assistive Devices Have you fallen in the past year?: Yes Ortho Exam General General: Yes no acute distress Neurologic: Yes alert and Yes oriented x3 Psychologic: Yes reasonable and appropriate Left Knee Skin/Wound: Yes CDI, No ecchymosis, No erythema and No swelling 11/08/24 1358 n > Date _ [facility] Person [facility] Signature: Date (if applicable) CC: ~ [facility] [id number] [facility] [address] [place] [id number] OFFICE VISIT Date of Service: 10/25/24 MR#: [id number] Acct: [id number] Name: ARTURO CORONADO Rep #: [id number] : 1945 Provider: Dr. Tristen Person MD Age/Sex: 79/M Location[place] [facility] [place] Status: Signed Intake Vital Signs 10/12/24 14:20 10/25/24 13:37 Height 5 ft 11 in 5 ft 11 in Weight: 176 lb 6 oz 175 lb BMI 24.5 24.4 Intake Visit Reasons: LEFT KNEE Chief Complaint: 1st Euflexxa left knee injection Accompanied by: Self Is patient in pain?: Yes Pain scale (1-10): 2 Allergies niacin (From Niaspan Extended-Release) Allergy (Verified 10/25/24 13:41) Extreme Itching cyclobenzaprine Adverse Reaction (Unknown, Verified 10/25/24 13:41) Heart feels like wants to stop Medications ?Medication ?Instructions ?Recorded ?Confirmed ?Type coenzyme J72-Q-adcfkfazn 100 mg-20 1 ea PO DAILY 03/2510/25/24 History mg capsule multivitamin with folic acid 400 1 tab PO DAILY 10/25/24 History mcg tablet omega-3 fatty acids 1,000 mg 1,000 mg PO DAILY 9 10/25/24 History capsule aspirin 81 mg chewable tablet 81 mg PO DAILY #90 tabs 08/15/20 10/25/24 Rx nitroglycerin 0.4 mg sublingual 0.4 mg sublingual Q5-1 5M PRN chest 07/04/23 10/25/24 Rx tablet (Nitrostat) pain #25 tabs magnesium 200 mg tablet 200 mg PO QDAY 01/13/2410/04 History pregabalin 50 mg capsule 50 mg PO QHS PRN neck pain # 90 caps 02/05/24 10/25/24 Rx lisinopril 10 mg tablet 10 mg PO BID #180 tabs 06/0210/25/24 Rx atorvastatin 80 mg tablet See Rx Instructions .Route 0 07/26/24 10/25/24 Rx .COMPLEX #90 tabs metoprolol tartrate 50 mg tablet 50 mg PO BID #180 tab s 07/26/24 10/25/24 Rx clopidogrel 75 mg tablet See Rx Instructions .Route 0 09/22/24 10/25/24 Rx .COMPLEX #90 tabs amlodipine 2.5 mg tablet 2.5 mg PO DAILY #90 tabs 10/25/24 Rx Have you fallen in the past year?: Yes [facility] Medical History Osteoarthritis of left knee Right shoulder strain Scabies Thyroid goiter Back pain due to injury Family history of colon cancer Seborrheic keratoses Cervical disc disease Cervical cord compression with myelopathy Painful neck Swallowing problem Chronic back pain Nonrheumatic mitral (valve) prolapse Essential (primary) hypertension Back pain Obstructive sleep apnea GERD (gastroesophageal reflux disease) Atherosclerosis of coronary artery of [place] heart without angina pectoris Hyperlipidemia Surgical History History of orthopedic surgery History of facial surgery History of shoulder surgery H/O right knee surgery History of left heart catheterization (11/19/21) History of coronary artery stent placement (05/16/10) Family History Father CAD (coronary artery disease) Diabetes Heart disease Myocardial infarction Hypertension Mother Heart disease Diabetes CVA (cerebral vascular accident) Sister Breast cancer Colon cancer Brother Colon cancer Social History household members: spouse housing: house current occupational status: retired Smoking Status: Former smoker how long ago did patient quit smokin alcohol intake: former substance use type: does not use what type of physical activity do you participate in: walking and bicycling frequency: daily seatbelt use: always do you feel safe at home: Yes HPI LEFT KNEE Details: This documentation accurately reflects the service provided and the decisions made by me, Dr. Sherie MD 10/25/24 1003. Part of today?s visit was documented by [ ], acting as scribe. ARTURO CORONADO is a 79 year old M here today for L knee OA, euflexxa 05/07. Office Procedures Euflexxa Procedure Details:: Obtained consent for injection. Under sterile conditions, injected the patientsleft knee with 20ml Euflexxa injection. The patient tolerated the injection well without any noted complication. Patientshould call our office if redness develops, pain worsens or if they have any concerns. Is this Buy & Bill?: Yes Office Meds Euflexxa 10 mg/mL (mw 2.4-3.6 million) intra-articular syringe Performing Provider: Edwar Person MD Performing Location: [facility] Administered by: Edwar Person MD on 10/25/24 13:49 Dose Route Admin Location Dispensed Lot Number Expiration Date NDC Tutor 20 mg intra-articular Left knee 2 mL [id number] 03/08/25 [address]-1 [employer] Coding Level of Care Code Attention Jeffrey Diagnoses Osteoarthritis of left knee M17.12 Comment L knee OA, euflexxa /. Assessment and Plan Assessment and Plan (1) Osteoarthritis of left knee: Status: Acute Plan: ARTURO CORONADO is a 79 year old M here today for L knee OA, euflexxa 05/07. FU 1 week. Left knee intra-articular Euflexxa injection We discussed the pros and cons risks and benefits of going ahead with left knee intra-articular Euflexxa injection. The risks include but are not limited to infection, pain, acute flare reaction, stiffness, bleeding, damage to surrounding structures, worsening arthritis or damage to the cartilage. The patient wished to proceed. The anterior aspect of the knee was prepped with chlorhexidine in theusual sterile fashion. Sterile no touch technique was employed. Used Gebauer spray per bottle instructions. 2cc Euflexxa was injectedinto the intra-articular portion of the knee. The patient tolerated procedure well. Bandage placed. There is no complications. Standard post procedure care instructions were given. Red flag symptoms were discussed in which case to return to clinic immediately or go to the emergency department such as redness, swelling, fever, discharge, drainage, increase pain or other symptoms. Patient counselled on diagnosis, prognosis and treatment options. Osteoarthritis (OA) occurs when the cartilage in the knee joint breaks down, causing pain and stiffness. Here are several treatment options to help manage knee pain: 1. Lifestyle Changes What it is: Losing weight, avoiding high-impact activities, and exercising with low-impact activities like swimming or walking. How it helps: Reduces strain on the knee joint, improves muscle strength, and eases pain. 2. Physical Therapy What it is: Targeted exercises to strengthen the muscles around the knee and improve flexibility. How it helps: Provides support to the knee and improves mobility, reducing pain. 3. Medications What they are: Hbts-rcz-zlnwdfo pain relievers like ibuprofen, naproxen, or acetaminophen. How they help: Reduce pain and inflammation, making it easier to move the knee. 4. Injections What they are: Corticosteroid injections for inflammation, hyaluronic acid for lubrication, or PRP injections to promote healing. How they help: Provide temporary pain relief and improve knee function. 5. Assistive Devices What they are: Knee braces, sleeves, or custom shoe inserts. How they help: Provide support, stabilize the knee, and reduce pain. 6. Heat and Cold Therapy What it is: Applying heat or cold to the knee to relieve pain and swelling. How it helps: Heat relaxes muscles, and cold reduces inflammation. 7. Surgery What it is: Options like arthroscopy or knee replacement surgery for severe cases. How it helps: Provides long-term pain relief and improves knee function. When to Seek Help: If knee pain affects daily activities or doesn?t improve with self-care measures. Orders: Orders Euflexxa Injection Today Clinical Quality Measures Falls Risk Screening/Assistive Devices Have you fallen in the past year?: Yes Ortho Exam General General: Yes no acute distress Neurologic: Yes alert and Yes oriented x3 Psychologic: Yes reasonable and appropriate Left Knee Skin/Wound: Yes CDI, No ecchymosis, No erythema and No swelling 10/25/24 1359 n MD> Date _ Edwar Person MD Cosigner Signature: Date (if applicable) CC: ~ [facility]06-23-2025 Progress note Author Edwar Person [facility] Note Date/Time October 25, 2024 1:59 pm [facility] [address] [place] [id number] OFFICE VISIT Date of Service: 10/25/24 MR#: [id number] Acct: [id number] Name: ARTURO CORONADO Rep #: [id number] : 1945 Provider: Dr. Tristen Person MD Age/Sex: 79/M Location: [facility] [place] Status: Signed Intake Vital Signs 10/12/24 14:20 10/25/24 13:37 Height 5 ft 11 in 5 ft 11 in Weight: 176 lb 6 oz 175 lb BMI 24.5 24.4 Intake Visit Reasons: LEFT KNEE Chief Complaint: 1st Euflexxa left knee injection Accompanied by: Self Is patient in pain?: Yes Pain scale (1-10): 2 Allergies niacin (From Niaspan Extended-Release) Allergy (Verified 10/25/24 13:41) Extreme Itching cyclobenzaprine Adverse Reaction (Unknown, Verified 10/25/24 13:41) Heart feels like wants to stop Medications ?Medication ?Instructions ?Recorded ?Confirmed ?Type coenzyme O84-J-ebcdrnkuk 100 mg-20 1 ea PO DAILY 03/2510/25/24 History mg capsule multivitamin with folic acid 400 1 tab PO DAILY 10/25/24 History mcg tablet omega-3 fatty acids 1,000 mg 1,000 mg PO DAILY 9 10/25/24 History capsule aspirin 81 mg chewable tablet 81 mg PO DAILY #90 tabs 08/15/20 10/25/24 Rx nitroglycerin 0.4 mg sublingual 0.4 mg sublingual Q5-1 5M PRN chest 07/04/23 10/25/24 Rx tablet (Nitrostat) pain #25 tabs magnesium 200 mg tablet 200 mg PO QDAY 01/13/2410/04 History pregabalin 50 mg capsule 50 mg PO QHS PRN neck pain # 90 caps 02/05/24 10/25/24 Rx lisinopril 10 mg tablet 10 mg PO BID #180 tabs 06/0210/25/24 Rx atorvastatin 80 mg tablet See Rx Instructions .Route 0 07/26/24 10/25/24 Rx .COMPLEX #90 tabs metoprolol tartrate 50 mg tablet 50 mg PO BID #180 tab s 07/26/24 10/25/24 Rx clopidogrel 75 mg tablet See Rx Instructions .Route 0 09/22/24 10/25/24 Rx .COMPLEX #90 tabs amlodipine 2.5 mg tablet 2.5 mg PO DAILY #90 tabs 10/25/24 Rx Have you fallen in the past year?: Yes PFSH Medical History Osteoarthritis of left knee Right shoulder strain Scabies Thyroid goiter Back pain due to injury Family history of colon cancer Seborrheic keratoses Cervical disc disease Cervical cord compression with myelopathy Painful neck Swallowing problem Chronic back pain Nonrheumatic mitral (valve) prolapse Essential (primary) hypertension Back pain Obstructive sleep apnea GERD (gastroesophageal reflux disease) Atherosclerosis of coronary artery of [place] heart without angina pectoris Hyperlipidemia Surgical History History of orthopedic surgery History of facial surgery History of shoulder surgery H/O right knee surgery History of left heart catheterization (11/19/21) History of coronary artery stent placement (05/16/10) Family History Father CAD (coronary artery disease) Diabetes Heart disease Myocardial infarction Hypertension Mother Heart disease Diabetes CVA (cerebral vascular accident) Sister Breast cancer Colon cancer Brother Colon cancer Social History household members: spouse housing: house current occupational status: retired Smoking Status: Former smoker how long ago did patient quit smokin alcohol intake: former substance use type: does not use what type of physical activity do you participate in: walking and bicycling frequency: daily seatbelt use: always do you feel safe at home: Yes HPI LEFT KNEE Details: This documentation accurately reflects the service provided and the decisions made by me, Dr. Edwar Person MD 10/25/24 1003. Part of today?s visit was documented by [ ], acting as scribe. ARTURO CORONADO is a 79 year old M here today for L knee OA, euflexxa 05/07. Office Procedures Euflexxa Procedure Details:: Obtained consent for injection. Under sterile conditions, injected the patientsleft knee with 20ml Euflexxa injection. The patient tolerated the injection well without any noted complication. Patient should call our office if redness develops, pain worsens or if they have any concerns. Is this Buy & Bill?: Yes Office Meds Euflexxa 10 mg/mL (mw 2.4-3.6 million) intra-articular syringe Performing Provider: Edwar Person MD Performing Location: [facility] Administered by: Edwar Person MD on 10/25/24 13:49 Dose Route Admin Location Dispensed Lot Number Expiration Date NDC Tutor 20 mg intra-articular Left knee 2 mL [id number] 03/08/25 [address]-5 [employer] Coding Level of Care Code Attention Jeffrey Diagnoses Osteoarthritis of left knee M17.12 Comment L knee OA, euflexxa /. Assessment and Plan Assessment and Plan (1) Osteoarthritis of left knee: Status: Acute Plan: ARTURO CORONADO is a 79 year old M here today for L knee OA, euflexxa 05/07. FU 1 week. Left knee intra-articular Euflexxa injection We discussed the pros and cons risks and benefits of going ahead with left knee intra-articular Euflexxa injection. The risks include but are not limited to infection, pain, acute flare reaction, stiffness, bleeding, damage to surrounding structures, worsening arthritis or damage to the cartilage. The patient wished to proceed. The anterior aspect of the knee was prepped with chlorhexidine in the usual sterile fashion. Sterile no touch technique was employed. Used Gebauer spray per bottle instructions. 2cc Euflexxa was injectedinto the intra-articular portion of the knee. The patient tolerated procedure well. Bandage placed. There is no complications. Standard post procedure care instructions were given. Red flag symptoms were discussed in which case to return to clinic immediately or go to the emergency department such as redness, swelling, fever, discharge, drainage, increase pain or other symptoms. Patient counselled on diagnosis, prognosis and treatment options. Osteoarthritis (OA) occurs when the cartilage in the knee joint breaks down, causing pain and stiffness. Here are several treatment options to help manage knee pain: 1. Lifestyle Changes What it is: Losing weight, avoiding high-impact activities, and exercising with low-impact activities like swimming or walking. How it helps: Reduces strain on the knee joint, improves muscle strength, and eases pain. 2. Physical Therapy What it is: Targeted exercises to strengthen the muscles around the knee and improve flexibility. How it helps: Provides support to the knee and improves mobility, reducing pain. 3. Medications What they are: Fbmt-rkj-iprjeqm pain relievers like ibuprofen, naproxen, or acetaminophen. How they help: Reduce pain and inflammation, making it easier to move the knee. 4. Injections What they are: Corticosteroid injections for inflammation, hyaluronic acid for lubrication, or PRP injections to promote healing. How they help: Provide temporary pain relief and improve knee function. 5. Assistive Devices What they are: Knee braces, sleeves, or custom shoe inserts. How they help: Provide support, stabilize the knee, and reduce pain. 6. Heat and Cold Therapy What it is: Applying heat or cold to the knee to relieve pain and swelling. How it helps: Heat relaxes muscles, and cold reduces inflammation. 7. Surgery What it is: Options like arthroscopy or knee replacement surgery for severe cases. How it helps: Provides long-term pain relief and improves knee function. When to Seek Help: If knee pain affects daily activities or doesn?t improve with self-care measures. Orders: Orders Euflexxa Injection Today Clinical Quality Measures Falls Risk Screening/Assistive Devices Have you fallen in the past year?: Yes Ortho Exam General General: Yes no acute distress Neurologic: Yes alert and Yes oriented x3 Psychologic: Yes reasonable and appropriate Left Knee Skin/Wound: Yes CDI, No ecchymosis, No erythema and No swelling 10/25/24 1119 <Electronically signed by Edwar maldonado MD> Date _ Edwar Person MD Cosigner Signature: Date (if applicable) CC: ~ [facility] Work Phone: 1(312) 646-266706-10-2025 Evaluation note* Diagnosis Onset Date Resolution Status Admit Date Carpal tunnel syndrome of right wrist acute October 12, 2024 2:14pm Knee pain, left acute October 2:14pm Osteoarthritis of left knee acute October 12, 2024 2:14pm Osteoarthritis of left knee acute October 25, 2024 1:33pm Osteoarthritis of left knee acute November 01, 2024 1:37pm Osteoarthritis of left knee acute November 08, 2024 1:35pm Essential (primary) hypertension chronic November 10, 2024 2:42pm Hyperlipidemia chronic November 10, 2024 2:42pm Nonrheumatic mitral (valve) prolapse chronic November 10, 2024 2:42pm History of coronary artery stent placement May 16, 2010 resolved November 10 2:42pm [facility] Work Phone: 1(884) 911-881103-19-2025 Evaluation note* Diagnosis Onset Date Resolution Status Admit Date Knee pain, left acute July 3:12pm Chronic pruritus chronic July 212024 3:12pm Carpal tunnel syndrome of ri ght wrist acute September 01, 2024 10:41am Knee pain, left acute August 10:41am Carpal tunnel syndrome of ri ght wrist acute October 12, 2024 2:14pm Knee pain, left acute October 2:14pm Osteoarthritis of left knee acute October 12, 2024 2:14pm Osteoarthritis of left knee acute October 25, 2024 1:33pm Osteoarthritis of left knee acute November 01, 2024 1:37pm Osteoarthritis of left knee acute November 08, 2024 1:35pm [facility] Work Phone: 1(136) 789-309803-19-2025 Evaluation note* Diagnosis Onset Date Resolution Status Admit Date Knee pain, left acute July 3:12pm Chronic pruritus chronic July 212024 3:12pm Carpal tunnel syndrome of right wrist acute September 01, 2024 10:41am Knee pain, left acute August 10:41am Carpal tunnel syndrome of right wrist acute October 12, 2024 2:14pm Knee pain, left acute October 2:14pm Osteoarthritis of left knee acute October 12, 2024 2:14pm Osteoarthritis of left knee acute October 25, 2024 1:33pm Osteoarthritis of left knee acute November 01, 2024 1:37pm Osteoarthritis of left knee acute November 08, 2024 1:35pm Essential (primary) hypertension chronic November 10, 2024 2:42pm Hyperlipidemia chronic November 10, 2024 2:42pm Nonrheumatic mitral (valve) prolapse chronic November 10, 2024 2:42pm History of coronary artery stent placement May 16, 2010 resolved November 10 2:42pm [facility] Work Phone: 1(746) 353-645103-19-2025 Radiology Diagnostic study note [facility] Imaging Services [address] [place] [address] Knee 4 or More Views MR#: [id number] Acct: [id number] Name: ARTURO CORONADO Rep #: [id number] : 1945 M 79 From: Helga Ferro MD PCP: Dr. Gauri Vila DO Status: RE G CLI Study:Knee 4 or More Views Date of Exam: 07/21/24 Exam# [id number] Ordering Dr: Do wandre Vila DO PROCEDURE: KNEE 4 OR MORE VIEWS (RADKN), 07/21/2024 REASON FOR EXAM: PAIN TECHNIQUE: AP, lateral, AP tunnel, and sunrise views of the LEFT knee were obtained COMPARISON: None FINDINGS: Fracture/dislocation: None visible. Joint space(s): Preserved. Soft tissues: Joint effusion. Foreign bodies: None visible. Bone mineralization: Demineralization. Other: None. RAD/Knee 4 or More Views IMPRESSION: Demineralization without visible acute displaced fracture, however with a joint effusion. If there is persistent concern for occult nondisplaced fracture or other internal derangement, recommend CT/MRI, asindicated. Reading Location: [id number] CC: Dr. Gauri Vila DO ~ C D Still Operator: Signed [facility]03-05-2025 Evaluation note* Diagnosis Onset Date Resolution Status Admit Date Essential (primary) hypertension chronic July 07, 2024 2:14pm Hyperlipidemia chronic July 07, 2024 2:14pm Nonrheumatic mitral (valve) prolapse chronic July 07, 2024 2:14pm History of coronary artery stent placement May 16, 2010 resolved July 07 2:14pm Knee pain, left acute July 3:12pm Chronic pruritus chronic July 212024 3:12pm Carpal tunnel syndrome of right wrist acute September 01, 2024 10:41am Knee pain, left acute August 10:41am Carpal tunnel syndrome of right wrist acute October 12, 2024 2:14pm [employer] [employer] Work Phone: 1(484) 537-358403-05-2025 Evaluation note* Diagnosis Onset Date Resolution Status Admit Date Essential (primary) hypertension chronic July 07, 2024 2:14pm Hyperlipidemia chronic July 07, 2024 2:14pm Nonrheumatic mitral (valve) prolapse chronic July 07, 2024 2:14pm History of coronary artery stent placement May 16, 2010 resolved July 07 2:14pm Knee pain, left acute July 3:12pm Chronic pruritus chronic July 212024 3:12pm Carpal tunnel syndrome of right wrist acute September 01, 2024 10:41am Knee pain, left acute August 10:41am Carpal tunnel syndrome of right wrist acute October 12, 2024 2:14pm Knee pain, left acute October 2:14pm Osteoarthritis of left knee acute October 12, 2024 2:14pm Osteoarthritis of left knee acute October 25, 2024 1:33pm [employer] Work Phone: 1([phone]) 360-202703-05-2025 Evaluation note* Diagnosis Onset Date Resolution Status Admit Date Essential (primary) hypertension chronic July 07, 2024 2:14pm Hyperlipidemia chronic July 07, 2024 2:14pm Nonrheumatic mitral (valve) prolapse chronic July 07, 2024 2:14pm History of coronary artery stent placement May 16, 2010 resolved July 07 2:14pm Knee pain, left acute July 3:12pm Chronic pruritus chronic July 212024 3:12pm Carpal tunnel syndrome of right wrist acute September 01, 2024 10:41am Knee pain, left acute August 10:41am Carpal tunnel syndrome of right wrist acute October 12, 2024 2:14pm Knee pain, left acute October 2:14pm Osteoarthritis of left knee acute October 12, 2024 2:14pm Osteoarthritis of left knee acute October 25, 2024 1:33pm Osteoarthritis of left knee acute November 01, 2024 1:37pm [employer] Work Phone: 1([phone] 398-700312-11-2024 Evaluation note* Diagnosis Onset Date Resolution Status Admit Date Gastrocnemius strain, left acute April 14, 2024 4:20pm Essential (primary) hypertension chronic July 07, 2024 2:14pm Hyperlipidemia chronic July 07, 2024 2:14pm Nonrheumatic mitral (valve) prolapse chronic July 07, 2024 2:14pm History of coronary artery stent placement May 16, 2010 resolved July 07 2:14pm [facility] Work Phone: 1(432) 987-652512-11-2024 Evaluation note* Diagnosis Onset Date Resolution Status Admit Date Gastrocnemius strain, left acute April 14, 2024 4:20pm Essential (primary) hypertension chronic July 07, 2024 2:14pm Hyperlipidemia chronic July 07, 2024 2:14pm Nonrheumatic mitral (valve) prolapse chronic July 07, 2024 2:14pm History of coronary artery stent placement May 16, 2010 resolved July 07 2:14pm Knee pain, left acute July 3:12pm Chronic pruritus chronic July 212024 3:12pm [facility] Work Phone: 1(431) 853-926911-30-2024 NoteHNO ID: [id number] Author: MANDY LAZARO PA-C Service: ? Author Type: Physician Applier Type: Progress Notes Filed: 04/03/2024 09:59 Note Text: This note was created using [facility]. Subjective Arturo Coronado is a 79 year old male. HPI Presents with left leg pain for 2 weeks. It started behind his left knee and then started going down his calf and now is on his inner thigh up to his groin. He states he was doing some yard work initially and then it was sore after. Denies chest pain or shortness of breath. He does have a history of a DVT after a knee surgery several years ago. He is on aspirin and Plavix. Denies any recent travel. No injury to the leg. Review of Systems Musculoskeletal: Left leg pain All other systems reviewed and are negative. PAST MEDICAL HISTORY Diagnosis Date Cervicalgia Complete rupture of rotator cuff [address] Lee History of blood clots Mixed hyperlipidemia Nonallopathic lesion of rib cage, not elsewhere classified Other and unspecified angina pectoris Reflux esophagitis Current Outpatient Medications Medication Sig Dispense Refill aspirin, enteric coated (ASPIRIN, ENTERIC COATED) 81 mg EC tablet Take 81 mg by mouth once daily. amLODIPine (NORVASC) 2.5 mg tablet pregabalin (LYRICA) 50 mg capsule atorvastatin (LIPITOR) 80 mg tablet Take 1 tablet by mouth once daily. 0 metoprolol tartrate, short acting, 50 mg tablet Take 1 tablet by mouth twice daily. 0 lisinopril 5 mg ORAL tablet Take 5 mg by mouth once daily. clopidogrel (PLAVIX) 75 mg ORAL tablet Take 75 mg by mouth once daily. nitroglycerin sublingual (NITROSTAT) 0.4 mg SUBLINGUAL SL tablet Dissolve 0.4 mg under the tongue every 5 minutes as needed. niacin sustained release (NIASPAN) 500 mg ORAL tablet Take 500 mg by mouth once daily. (Patient not taking: Reported on 04/03/2024) aspirin, enteric coated (ENTERIC COATED ASPIRIN) 325 mg ORAL EC tablet Take 325 mg by mouth once daily. (Patient not taking: Reported on 04/03/2024) No current facility-administered medications for this visit. PAST SURGICAL HISTORY Procedure Laterality Date PAST SURGICAL HISTORY OF 1984 facial surgery PAST SURGICAL HISTORY OF 1981 right shoulder surgery PAST SURGICAL HISTORY OF 2008 right knee surgery x2/meniscus tear FAMILY HISTORY Problem Relation Age of Onset Heart Mother Heart Father Diabetes Mother Diabetes Father Hypertension Father Colon Cancer Brother Stroke Mother Social History Tobacco Use Smoking status: Former Current packs/day: 0.00 Average packs/day: 3.0 packs/day for 15.0 years (45.0 ttl pk-yrs) Types: Cigarettes Start date: 05/04/1965 Quit date: 05/04/1980 Years since quittin.9 Smokeless tobacco: Never Substance Use Topics Alcohol use: No Drug use: No Objective BP 110/80 Pulse 67 Temp 36.4 ?C (97.5 ?F) Resp 20 Wt 81 kg (178 lb 9.2 oz) SpO2 98% Physical Exam Vitals reviewed. Constitutional: Appearance: Normal appearance. HENT: Head: Normocephalic and atraumatic. Musculoskeletal: Comments: Patient has some tenderness to palpation to the medial left calf. Mildly antalgic gait. No obvious swelling. Skin: General: Skin is warm and dry. Neurological: Mental Status: He is alert. Assessment and Plan .ASSESSMENT/PLAN: 1. Left leg pain - ICD9: 729.5, ICD10: M79.605 (primary diagnosis) Patient has pain in his calf up to his groin with history of DVT. Recommended he have an ultrasound to rule this out. Unable to obtain this over the weekend, referred him to the emergency department. He will go to [facility] across the street. 2. History of DVT (deep vein thrombosis) - ICD9: V12.51, ICD10: Z86.718 [facility] History of Present illness Narrative* Mandy Lazaro PA-C - 04/03/2024 9:53 AM EST This note was created using [facility]. Subjective Arturo Coronado is a 79 year old male. HPI Presents with left leg pain for 2 weeks. It started behind his left knee and then started going down his calf and now is on his inner thigh up to his groin. He states he was doing some yard work initially and then it was sore after. Denies chest pain or shortness of breath. He does have a history of a DVT after a knee surgery several years ago. He is on aspirin and Plavix. Denies any recent travel. No injury to the leg. Review of Systems Musculoskeletal: Left leg pain All other systems reviewed and are negative. PAST MEDICAL HISTORY Diagnosis Date Cervicalgia Complete rupture of rotator cuff [address] Lee History of blood clots Mixed hyperlipidemia Nonallopathic lesion of rib cage, not elsewhere classified Other and unspecified angina pectoris Reflux esophagitis Current Outpatient Medications Medication Sig Dispense Refill aspirin, enteric coated (ASPIRIN, ENTERIC COATED) 81 mg EC tablet Take 81 mg by mouth once daily. amLODIPine (NORVASC) 2.5 mg tablet pregabalin (LYRICA) 50 mg capsule atorvastatin (LIPITOR) 80 mg tablet Take 1 tablet by mouth once daily. 0 metoprolol tartrate, short acting, 50 mg tablet Take 1 tablet by mouth twice daily. 0 lisinopril 5 mg ORAL tablet Take 5 mg by mouth once daily. clopidogrel (PLAVIX) 75 mg ORAL tablet Take 75 mg by mouth once daily. nitroglycerin sublingual (NITROSTAT) 0.4 mg SUBLINGUAL SL tablet Dissolve 0.4 mg under the tongue every 5 minutes as needed. niacin sustained release (NIASPAN) 500 mg ORAL tablet Take 500 mg by mouth once daily. (Patient nottaking: Reported on 04/03/2024) aspirin, enteric coated (ENTERIC COATED ASPIRIN) 325 mg ORAL EC tablet Take 325 mg by mouth once daily. (Patient not taking: Reported on 04/03/2024) No current facility-administered medications for this visit. PAST SURGICAL HISTORY Procedure Laterality Date PAST SURGICAL HISTORY OF 1984 facial surgery PAST SURGICAL HISTORY OF 1981 right shoulder surgery PAST SURGICAL HISTORY OF 2008 right knee surgery x2/meniscus tear FAMILY HISTORY Problem Relation Age of Onset Heart Mother Heart Father Diabetes Mother Diabetes Father Hypertension Father Colon Cancer Brother Stroke Mother Social History Tobacco Use Smoking status: Former Current packs/day: 0.00 Average packs/day: 3.0 packs/day for 15.0 years (45.0 ttl pk-yrs) Types: Cigarettes Start date: 05/04/1965 Quit date: 05/04/1980 Years since quittin.9 Smokeless tobacco: Never Substance Use Topics Alcohol use: No Drug use: No Objective BP 110/80 Pulse 67 Temp 36.4 C (97.5 F) Resp 20 Wt 81 kg (178 lb 9.2 oz) SpO2 98% Physical Exam Vitals reviewed. Constitutional: Appearance: Normal appearance. HENT: Head: Normocephalic and atraumatic. Musculoskeletal: Comments: Patient has some tenderness to palpation to the medial left calf. Mildly antalgic gait. No obvious swelling. Skin: General: Skin is warm and dry. Neurological: Mental Status: He is alert. Assessment and Plan .ASSESSMENT/PLAN: 1. Left leg pain - ICD9: 729.5, ICD10: M79.605 (primary diagnosis) Patient has pain in his calf up to his groin with history of DVT. Recommended he have an ultrasoundto rule this out. Unable to obtain this over the weekend, referred him to the emergency department.He will go to [facility] across the street. 2. History of DVT (deep vein thrombosis) - ICD9: V12.51, ICD10: Z86.718 Mandy Lazaro PA-C [facility] History of Present illness Narrative* Bib Franz MD - 07/15/2023 2:22 PM EDT Images from the original note were not included. Patient ID: Arturo Coronado is a 78 y.o. male Subjective: Arturo Coronado is a 78 y.o. male who returns to our office for follow up of: multinodular goiter. Patient status post FNA biopsy of bilateral nodules 11/15/11 at [facility]. Mr. Coronado is a 75-year-old male patient has a history of multinodular goiter which was biopsied backin November 2011, found to be benign. He was last seen here in August, and is here for 3-year follow-up. He had an ultrasound done at [facility] on 07/10/23 along with TFTs. Results arenoted below. He has been feeling well generally, other than having some posterior neck discomfort which is due to cervical spine disease. He has seen 3 surgeons and apparently surgery is not advisable. He has some dysphagia in the morning which resolves when he Puts on a cervical collar and allows his muscles to relax. He previously was very active biking [place] the bike trail, but is unable to bike much due to his neck pain.. HPI Review of Systems: Review of Systems Constitutional: Negative for appetite change and unexpected weight change. HENT: Positive for trouble swallowing (he believes related to his c-spine disease). Eyes: Negative for visual disturbance. Respiratory: Negative for shortness of breath. Cardiovascular: Negative for chest pain. Gastrointestinal: Negative for abdominal pain, nausea and vomiting. Musculoskeletal: Positive for arthralgias, back pain, myalgias and neck pain. Musculoskeletal discomfort in posterior neck Medications: Current Outpatient Medications Medication Sig Dispense Refill aspirin (ECOTRIN LOW STRENGTH) 81 MG EC tablet 1 (one) tablet (81 mg total) . atorvastatin (LIPITOR) 80 MG tablet Take 1 (one) tablet (80 mg total) by mouth . cholecalciferol, vitamin D3, 400 unit Tab Take by mouth daily . clopidogrel (PLAVIX) 75 mg tablet Take 1 (one) tablet (75 mg total) by mouth . coenzyme Q10 (CO Q-10) 100 mg capsule 100 mg. fish oil-omega-3 fatty acids 300-1,000 mg capsule Take 2 (two) capsules by mouth daily . lisinopriL (PRINIVIL,ZESTRIL) 10 MG tablet Take 1 (one) tablet (10 mg total) by mouth daily . metoprolol tartrate (LOPRESSOR) 50 MG tablet Take 1 (one) tablet (50 mg total) by mouth . multivitamin capsule take 1 capsule by oral route every day No current facility-administered medications for this visit. The following portions of the patient's history were reviewed and updated as appropriate: allergies, current medications, past family history, past medical history, past social history, past surgicalhistory and problem list. Objective: Physical Exam: BP (!) 167/96 Pulse (!) 54 Wt 78.5 kg (173 lb) BMI 24.13 kg/m Wt Readings from Last 3 Encounters: 07/15/23 78.5 kg (173 lb) 08/23/20 82.1 kg (181 lb) 08/24/18 80.7 kg (178 lb) Physical Exam Vitals reviewed. Constitutional: Appearance: He is well-developed. HENT: Head: Normocephalic and atraumatic. Eyes: Conjunctiva/sclera: Conjunctivae normal. Comments: Left eye disconjugate Neck: Thyroid: No thyromegaly. Cardiovascular: Rate and Rhythm: Normal rate and regular rhythm. Pulmonary: Effort: Pulmonary effort is normal. Breath sounds: Normal breath sounds. Lymphadenopathy: Cervical: No cervical adenopathy. Skin: General: Skin is warm and dry. Neurological: Mental Status: He is alert and oriented to person, place, and time. Lab Review: 07/11/23 TSH 2.43, FT4--0.93 08/16/2020 TSH 1.30, FT4--1.01 04/09/17 TSH 1.29, FT4--1.13 11/15/11: (FNA biopsies done at [facility], likely by Dr. Ratliff) A. THYROID RIGHT, [...] doppler flow. 04/09/17 thyroid ultrasound performed at [facility] Comparison: 03/29/16 Right lobe: 1.5 x 2.3 [...] prior study where it appeared cystic. 5 x4 x 3 mm hypoechoic focus along the [...] RADS criteria secondary to their small size. 07/10/2023 Ultrasound of thyroid [facility] Comparison 08/16/2020 Findings: Left thyroid lobe solid/cystic nodule measuring 1.2 x 0.9 x 0.9 cm left lobe isoechoic, wider than tall, ill-defined without echogenic foci. Solid nodule measuring 1.1 x 0.7 x 0.8 cm left lobe of the thyroid is isoechoic, wider than tall, smooth, without echogenic foci Cystic nodule measuring 3 x 2 x 4 mm left lobe of the thyroid Left lobe measures 4.8 x 1.6 x 1.5 cm Right thyroid lobe: Solid nodule measuring 1.0 x 0.9 x 0.7 cm right lobe isoechoic, wider than tall, smooth without echogenic foci Spongiform nodule 4 x 3 x 4 mm Right lobe measures 4.9 x 1.7 x 1.2 cm Impression: 1. 10 x 9 x 7 mm solid right nodule TR 3. Nodule is mildly suspicious but no FNA or follow-up necessary given small size 2. Spongiform nodule 4 x 3 x 4 mm right lobe T RADS 0, benign, no follow-up necessary 3. 12 x 9 x 9 mm solid/cystic nodule left lobe is isoechoic, wider than tall, ill-defined without echogenic foci T RADS 2. Not suspicious, no FNA or follow-up necessary 4. 11 x 7 x 8 mm T RADS 3 nodule no FNA or follow-up necessary given small size. 5. 3 x 2 x 4 mm cystic nodule left lobe benign and no follow-up necessary T RADS 0 Assessment: Dx: 1. Goiter, nontoxic, multinodular Arturo Coronado is a 78 y.o. male returns for follow up of multinodular goiter. His thyroid function tests are euthyroid. His ultrasound on 07/10/23 reveals stable nodule size and appearance compared with 08/2020 study. He is status post FNA biopsies on 11/15/2011 of both the right and left thyroid nodules which were consistent with benign colloid nodules. His dysphagia does not appear to be due to thyroid. Because his ultrasound findings have been stable for> 5 years, he does not require further [...] 3. Repeat ultrasound if he develops any new symptoms of neck discomfort or dysphagia. 4. Patient can return anytime to this office for further evaluation if he has a change in his thyroid function tests or symptoms. No orders of the defined types were placed in this encounter. Electronically signed by Bib Franz MD 07/15/23 3:03 PM documented in this [id number] History of Present illness Narrative* Bib Franz MD - 07/08/2023 8:47 AM EST Pt requests follow up appt. Will order ultrasound and TFTs, and follow up appt after testing. CD documented in this [id number] History of Present illness Narrative* Bib Franz MD - 08/23/2020 12:58 PM EDT Patient ID: Arturo Coronado is a 75 y.o. male Subjective: Arturo Coronado is a 75 y.o. male who returns to our office for follow up of: multinodular goiter. Patient status post FNA biopsy of bilateral nodules 11/15/11 at [facility]. Mr. Coronado is a 75-year-old male patient has a history of multinodular goiter which was biopsied backin November 2011, found to be benign. He was last seen here in August, and is here for 2-year follow-up. He had an ultrasound done at [facility] on 08/16/2020 along with TFTs. Results are [...] 1.29, FT4--1.13 11/15/11: (FNA biopsies done at [facility], likely by Dr. Ratliff) A. THYROID RIGHT, [...] doppler flow. 04/09/17 thyroid ultrasound performed at [facility] Comparison: 03/29/16 Right lobe: 1.5 x 2.3 [...] prior study where it appeared cystic. 5 x4 x 3 mm hypoechoic focus along the [...] 5 years, he does not require further follow-upby ultrasound at this time. I have advised him that his primary care physician can follow his thyroid function tests every 1-2 years, and if he were to develop abnormal thyroid function test he couldbe referred back at any time. Also, if [...] placed in this encounter. Electronically signed by Bib Franz MD 08/23/20 3:03 PM [facility]* Diagnosis Nontoxic multinodular goiter- Primary [facility] Diagnosis Nontoxic multinodular goiter- Primary [facility] Diagnosis Onset Date Resolution Status Carpal tunnel syndrome of right wrist acute Constipation by delayed colonic transit acute Family history of colon cancer acute Atherosclerosis of coronary artery of [place] heart without angina pectoris chronic Essential (primary) hypertension chronic Hyperlipidemia chronic Nonrheumatic mitral (valve) prolapse chronic [facility] Work Phone: Evaluation note* Diagnosis Onset Date Resolution Status Carpal tunnel syndrome of right wrist acute Constipation by delayed colonic transit acute Family history of colon cancer acute Atherosclerosis of coronary artery of [place] heart without angina pectoris chronic Essential (primary) hypertension chronic Hyperlipidemia chronic Nonrheumatic mitral (valve) prolapse chronic Carpal tunnel syndrome of right wrist acute [facility] Work Phone: Evaluation note* Diagnosis Onset Date Resolution Status Atherosclerosis of coronary artery of [place] heart without angina pectoris chronic Essential (primary) hypertension chronic Hyperlipidemia chronic Nonrheumatic mitral (valve) prolapse chronic Carpal tunnel syndrome of right wrist acute Back pain due to injury acut e Carpal tunnel syndrome of right wrist acute Rotator cuff injury noneacti ve Chest pain acute Essential (primary) hypertension chronic Hyperlipidemia chronic Nonrheumatic mitral (valve) prolapse chronic [facility] Work Phone: Evaluation note* Diagnosis Onset Date Resolution Status Carpal tunnel syndrome of right wrist acute Carpal tunnel syndrome of right wrist acute Rotator cuff injury noneacti ve Essential (primary) hypertension chronic Hyperlipidemia chronic Nonrheumatic mitral (valve) prolapse chronic Chest pain resolved Skin lesion of right external ear acute Skin lesion of left external ear acute Skin lesion of right external ear acute Skin lesion of left external ear acute Skin lesion of right external ear acute [facility] Work Phone: Evaluation note* Diagnosis Onset Date Resolution Status Cervical disc disease chroni c Essential (primary) hypertension chronic Scabies acute Scabies acute Cervical disc disease chroni c Hypertension chronic [facility] Work Phone: Evaluation noteNo assessment information available [facility] Work Phone: Evaluation note* Diagnosis Onset Date Resolution Status Cervical disc disease chroni c Hypertension chronic Acute upper respiratory infection acute Cervical disc disease chroni c Essential (primary) hypertension chronic Right shoulder strain acute [facility] Work Phone: Evaluation note* Diagnosis Onset Date Resolution Status Acute upper respiratory infection acute Cervical disc disease chroni c Essential (primary) hypertension chronic Right shoulder strain acute Biceps tendon rupture, proximal acute Cervical stenosis of spinal canal acute DJD of right shoulder acute Right shoulder strain acute Rotator cuff tendinitis acut e Cervical disc disease chroni c Essential (primary) hypertension chronic Hyperlipidemia chronic Nonrheumatic mitral (valve) prolapse chronic History of coronary artery stent placement May resolved [facility] Work Phone: Evaluation note* Diagnosis Goiter, nontoxic, multinodular- Primary Nontoxic multinodular goiter [facility] Diagnosis Goiter, nontoxic, multinodular- Primary Nontoxic multinodular goiter [facility]* Diagnosis Left leg pain- Primary Pain in limb History of DVT (deep vein thrombosis) Personal history of venous thrombosis and embolism [facility] Work Phone: [facility] Work Phone: [facility] Work Phone: Hospital Discharge instructions Additional Instructions Please continue your medications as directed by your family doctor but discussed with him about increasing your lisinopril or adding a third blood pressure medication for stricter blood pressure control and return to the ER should you have any further concernsWMercy [facility] Work Phone: Progress note Author Edwar Person [facility] Note Date/Time November 08, 2024 1:58p m [facility] [address] [place] [address] OFFICE VISIT Date of Service: 11/08/24 MR#: [id number] Acct: [id number] Name: ARTURO CORONADO Rep #: [id number] : 1945 Provider: Dr. Tristen Person MD Age/Sex: 79/M Location: [facility] [place] Status: Signed Intake Vital Signs 10/12/24 14:20 10/25/24 13:37 Height 5 ft 11 in 5 ft 11 in Weight: 175 lb BMI 24.4 Intake Visit Reasons: LEFT KNEE Chief Complaint: 3rd Euflexxa left knee injection Is patient in pain?: Yes Allergies niacin (From Niaspan Extended-Release) Allergy (Verified 11/08/24 13:42) Extreme Itching cyclobenzaprine Adverse Reaction (Unknown, Verified 11/08/24 13:42) Heart feels like wants to stop Medications ?Medication ?Instructions ?Recorded ?Confirmed ?Type coenzyme [id number] 100 mg-20 1 ea PO DAILY 03/2511/08/24 History mg capsule multivitamin with folic acid 400 1 tab PO DAILY 11/08/24 History mcg tablet omega-3 fatty acids 1,000 mg 1,000 mg PO DAILY 9 11/08/24 History capsule aspirin 81 mg chewable tablet 81 mg PO DAILY #90 tabs 08/15/20 11/08/24 Rx nitroglycerin 0.4 mg sublingual 0.4 mg sublingual Q5-1 5M PRN chest 07/04/23 11/08/24 Rx tablet (Nitrostat) pain #25 tabs magnesium 200 mg tablet 200 mg PO QDAY 01/13/2411/26 History pregabalin 50 mg capsule 50 mg PO QHS PRN neck pain # 90 caps 02/05/24 11/08/24 Rx lisinopril 10 mg tablet 10 mg PO BID #180 tabs 06/0211/08/24 Rx atorvastatin 80 mg tablet See Rx Instructions .Route 0 07/26/24 11/08/24 Rx .COMPLEX #90 tabs metoprolol tartrate 50 mg tablet 50 mg PO BID #180 tab s 07/26/24 11/08/24 Rx clopidogrel 75 mg tablet See Rx Instructions .Route 0 09/22/24 11/08/24 Rx .COMPLEX #90 tabs amlodipine 2.5 mg tablet 2.5 mg PO DAILY #90 tabs 11/08/24 Rx Have you fallen in the past year?: Yes [facility] Medical History Osteoarthritis of left knee Right shoulder strain Scabies Thyroid goiter Back pain due to injury Family history of colon cancer Seborrheic keratoses Cervical disc disease Cervical cord compression with myelopathy Painful neck Swallowing problem Chronic back pain Nonrheumatic mitral (valve) prolapse Essential (primary) hypertension Back pain Obstructive sleep apnea GERD (gastroesophageal reflux disease) Atherosclerosis of coronary artery of [place] heart without angina pectoris Hyperlipidemia Surgical History History of orthopedic surgery History of facial surgery History of shoulder surgery H/O right knee surgery History of left heart catheterization (11/19/21) History of coronary artery stent placement (05/16/10) Family History Father CAD (coronary artery disease) Diabetes Heart disease Myocardial infarction Hypertension Mother Heart disease Diabetes CVA (cerebral vascular accident) Sister Breast cancer Colon cancer Brother Colon cancer Social History household members: spouse housing: house current occupational status: retired Smoking Status: Former smoker how long ago did patient quit smokin alcohol intake: former substance use type: does not use what type of physical activity do you participate in: walking and bicycling frequency: daily seatbelt use: always do you feel safe at home: Yes HPI LEFT KNEE Details: This documentation accurately reflects the service provided and the decisions made by me, Dr. Edwar Person MD 11/08/24 3892. Part of today?s visit was documented by [ ], acting as scribe. ARTURO CORONADO is a 79 year old M here today for L knee OA, euflexxa 07/05. He hadsome bleeding last time he is on a blood thinner. Minimal relief so far Office Procedures Euflexxa Procedure Details:: Obtained consent for injection. Under sterile conditions, injected the patientsleft knee with 2mL Euflexxa. The patient tolerated the injection well without any noted complication. Patient should call our office if redness develops, pain worsens or if they have any concerns. Is this Buy & Bill?: Yes Office Meds Euflexxa 10 mg/mL (mw 2.4-3.6 million) intra-articular syringe Performing Provider: Edwar Person MD Performing Location: [facility] Administered by: Edwar Person MD on 11/08/24 13:41 Dose Route Admin Location Dispensed Lot Number Expiration Date NDC Tutor 10 mg intra-articular left knee 2 mL [id number] 03/08/25 [address]-6 [facility] Coding Level of Care Code Attention Jeffrey Diagnoses Osteoarthritis of left knee M17.12 Comment Left knee intra-articular Euflexxa injection Assessment and Plan Assessment and Plan (1) Osteoarthritis of left knee: Status: Acute Plan: L knee OA, euflexxa /. FU 3 months of PRN. Encouraged him to stay with some pressure on the injection site for couple minutes this time doing the blood thinner. Left knee intra-articular Euflexxa injection We discussed the pros and cons risks and benefits of going ahead with left knee intra-articular Euflexxa injection. The risks include but are not limited to infection, pain, acute flare reaction, stiffness, bleeding, damage to surrounding structures, worsening arthritis or damage to the cartilage. The patient wished to proceed. The anterior aspect of the knee was prepped with chlorhexidine in the usual sterile fashion. Sterile no touch technique was employed. Used Gebauer spray per bottle instructions. 2cc Euflexxa was injectedinto the intra-articular portion of the knee. The patient tolerated procedure well. Bandage placed. There is no complications. Standard post procedure care instructions were given. Red flag symptoms were discussed in which case to return to clinic immediately or go to the emergency department such as redness, swelling, fever, discharge, drainage, increase pain or other symptoms. Orders: Orders Euflexxa Injection Today Clinical Quality Measures Falls Risk Screening/Assistive Devices Have you fallen in the past year?: Yes Ortho Exam General General: Yes no acute distress Neurologic: Yes alert and Yes oriented x3 Psychologic: Yes reasonable and appropriate Left Knee Skin/Wound: Yes CDI, No ecchymosis, No erythema and No swelling 11/08/24 1209 <Electronically signed by Edwar maldonado MD> Date _ Edwar Person MD Cosigner Signature: Date (if applicable) CC: ~ [facility] Work Phone: Reason for referral (narrative)No reason for referral information availableWMercy Health [facility] Work Phone: Assessments Diagnosis Multinodular goiter (nontoxi c) - Primary Nontoxic multinodular goiter Diagnosis Multinodular goiter (nontoxic)- Primary Nontoxic multinodular goiter Summary Purpose Family History No Family History Records Found Relationship Condition Age at Onset Recorded Date/T marla father Coronary artery disease Unknown mother Cardiac disease Unknown sister Malignant neoplasm of breast Unknown Malignant neoplasm of colon Unknown brother Malignant neoplasm of colon Unknown Relationship Condition Age at Onset Recorded Date/T marla father Coronary artery disease Unknown Diabetes mellitus Unknown Cardiac disease Unknown Myocardial infarction Unknown Hypertension Unknown mother Cardiac disease Unknown Cerebrovascular accident (CVA) Unknown sister Malignant neoplasm of breast Unknown Malignant neoplasm of colon Unknown brother Malignant neoplasm of colon Unknown Advance Directives No Advanced Directives Records FoundDocuments on File Type Date Recorded 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 Advance Directives and Living Will Documents on File Type Date Recorded 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 Advance Directives and Livin g Will 08/23/2020 12:38 PM Advance Directive Response Recorded Date/ Time Advance Directives No February 15, 2014 10:14am Living Will Yes July 04, 2020 1:11am Power of Transportation Services Representative Yes July 04 1:11am Advance Directive Response Recorded Date/ Time Name of Medical Power of Transportation Services Representative SHANTA MIDDLETON () October 17, 2021 2:40pm Advance Directives No February 15, 2014 10:14am Living Will Yes October 17, 2021 2:40pm Power of Transportation Services Representative Yes October 17 2:40pm Advance Directive Response Recorded Date/ Time Name of Medical Power of Transportation Services Representative SHANTA MIDDLETON () October 17, 2021 2:40pm Advance Directives on File No November 19, 2021 7:45am Advance Directives Yes November 19 7:45am Living Will Yes November 19, 2021 7:45am Power of Transportation Services Representative Yes November 19 7:45am Advance Directive Response Recorded Date/ Time Name of Medical Power of Transportation Services Representative SHANTA MIDDLETON () October 17, 2021 2:40pm Advance Directives on File No November 19, 2021 7:45am Name of Medical Power of Transportation Services Representative --STEVE E January 10, 2022 12:03am Advance Directives Yes November 19 7:45am Living Will Yes January 10 022 12:03am Power of Transportation Services Representative Yes January 10, 2022 12:03am Advance Directive Response Recorded Date/ Time Name of Medical Power of Transportation Services Representative --STEVE E January 09, 2022 11:03pm Advance Directives Yes November 19 6:45am Living Will Yes January 09 022 11:03pm Power of Transportation Services Representative Yes January 09, 2022 11:03pm Advance Directive Response Recorded Date/ Time Advance Directives Yes November 19 7:45am Living Will No September 20, 2022 1 :14pm Power of Transportation Services Representative No September 20, 2022 1:14pm Advance Directive Response Recorded Date/ Time Advance Directives Yes April 10, 2023 12:15pm Living Will No April 10 12:15pm Power of Transportation Services Representative No April 10, 2023 12:15pm Advance Directive Response Recorded Date/ Time Advance Directives Yes May 21, 2023 12:39pm Living Will No May 21 12:39pm Power of Transportation Services Representative No May 21, 2023 12:39pm Advance Directive Response Recorded Date/ Time Advance Directives Yes May 21, 2023 1:39pm Living Will No May 21 1:39pm Power of Transportation Services Representative No May 21, 2023 1:39pm Advance Directive Response Recorded Date/ Time Living Will No May 21 1:39pm Power of Transportation Services Representative No May 21, 2023 1:39pm Living Will No April 03 11:47am Power of Transportation Services Representative No April 03, 2024 11:47am Advance Directives Yes October 01 1:34pm Advance Directive Response Recorded Date/ Time Living Will No May 21 1:39pm Do you have a Healthcare Power of Transportation Services Representative? No May 21, 2023 1:39pm Living Will No April 03 11:47am Do you have a Healthcare Power of Transportation Services Representative? No April 03, 2024 11:47am Advance Directives Yes October 01 1:34pm Advance Directive Response Recorded Date/ Time Living Will No May 21 1:39pm Do you have a Healthcare Power of Transportation Services Representative? No May 21, 2023 1:39pm Advance Directives Yes October 01 1:34pm Advance Directive Response Recorded Date/ Time Advance Directives Yes October 01 1:34pm History of Present Illness * Jacqui Olivas, MARIPOSA - 08/24/2018 1:16 PM EDT Patient ID: Arturo Coronado is a 73 y.o. male Subjective: Arturo Coronado is a 73 y.o. male who returns to our office for follow up of: multinodular goiter. Patient status post FNA biopsy of bilateral nodules 11/15/11 at [facility]. Mr. Coronado is a 73-year-old male patient [...] doppler flow. 04/09/17 thyroid ultrasound performed at [facility] Comparison: 03/29/16 Right lobe: 1.5 x 2.3 [...] evaluation for patient's above complaints. He states heArtie has an ENT and will call their [...] Instructions Instruction Description Start Date CompletedPlease follow-up [facility] Phys[facility] or Telepathist for treatment or adjustment of medication regarding elevated blood pressure.Patient advised to follow-up with Primary Care Physician for BMI management. Review of System There may be information available, but it has not been provided by the sender. Chief Complaint and Reason for Visit Chief Complaint CONSTIPATION ISSUES RIGHT CTS RIGHT CTS 1 Y FU Reason for Visit Carpal tunnel syndro me of right wrist Constipation by delayed colonic transit Family history of colon cancer Atherosclerosis of coronary artery of [place] heart without angina pectoris Essential (primary) hypertension Hyperlipidemia Nonrheumatic mitral (valve) prolapse Chief Complaint CONSTIPATION ISSUES RIGHT CTS RIGHT CTS 1 Y FU CHK UP BACK PAIN Reason for Visit Carpal tunnel syndro me of right wrist Constipation by delayed colonic transit Family history of colon cancer Atherosclerosis of coronary artery of [place] heart without angina pectoris Essential (primary) hypertension Hyperlipidemia Nonrheumatic mitral (valve) prolapse Carpal tunnel syndrome of right wrist Chief Complaint RIGHT CTS RIGHT CTS 1 Y FU CHK UP BACK PAIN HOSPITAL 3 M FU E ORDER CORINARY ARTERY DISEASE, CHEST PAIN Reason for Visit Atherosclerosis of c oronary artery of [place] heart without angina pectoris Essential (primary) hypertension Hyperlipidemia Nonrheumatic mitral (valve) prolapse Carpal tunnel syndrome of right wrist Back pain due to injury Carpal tunnel syndrome of right wrist Rotator cuff injury Chest pain Essential (primary) hypertension Hyperlipidemia Nonrheumatic mitral (valve) prolapse Chief Complaint CHK UP BACK PAIN HOSPITAL 3 M FU E ORDER CORINARY ARTERY DISEASE, CHEST PAIN GROWTH ON R EAR LESION ON EAR bilateral ear shave bx R &L EAR LESIONS Reason for Visit Carpal tunnel syndro me of right wrist Carpal tunnel syndrome of right wrist Rotator cuff injury Essential (primary) hypertension Hyperlipidemia Nonrheumatic mitral (valve) prolapse Chest pain Skin lesion of right external ear Skin lesion of left external ear Skin lesion of right external ear Skin lesion of left external ear Skin lesion of right external ear Chief Complaint [facility] 3 M FU E ORDER CORINARY ARTERY DISEASE, CHEST PAIN GROWTH ON R EAR LESION ON EAR bilateral ear shave bx R &L EAR LESIONS HTN Reason for Visit Carpal tunnel syndro me of right wrist Carpal tunnel syndrome of right wrist Rotator cuff injury Essential (primary) hypertension Hyperlipidemia Nonrheumatic mitral (valve) prolapse Chest pain Skin lesion of right external ear Skin lesion of left external ear Skin lesion of right external ear Skin lesion of left external ear Skin lesion of right external ear Chief Complaint HTN 3 M FU ITCHY ALL OVER 3 M FU Reason for Visit Cervical disc diseas e Essential (primary) hypertension Scabies Scabies Cervical disc disease Hypertension Chief Complaint COMPLAINTS Chief Complaint BP MED CONCERNS COUGH, FEVER NECK AND BACK PAIN RIGHT SHOULDER PAIN/INJURY Reason for Visit Cervical disc diseas e Hypertension Acute upper respiratory infection Cervical disc disease Essential (primary) hypertension Right shoulder strain Chief Complaint COUGH, FEVER NECK AND BACK PAIN RIGHT SHOULDER PAIN/INJURY RIGHT SHOULDER E-ORDER 1 Y FU Reason for Visit Acute upper respirat ory infection Cervical disc disease Essential (primary) hypertension Right shoulder strain Biceps tendon rupture, proximal Cervical stenosis of spinal canal DJD of right shoulder Right shoulder strain Rotator cuff tendinitis Cervical disc disease Essential (primary) hypertension Hyperlipidemia Nonrheumatic mitral (valve) prolapse History of coronary artery stent placement Chief Complaint COUGH, FEVER NECK AND BACK PAIN RIGHT SHOULDER PAIN/INJURY RIGHT SHOULDER E-ORDER 1 Y FU GOITER Reason for Visit Acute upper respirat ory infection Cervical disc disease Essential (primary) hypertension Right shoulder strain Biceps tendon rupture, proximal Cervical stenosis of spinal canal DJD of right shoulder Right shoulder strain Rotator cuff tendinitis Cervical disc disease Essential (primary) hypertension Hyperlipidemia Nonrheumatic mitral (valve) prolapse History of coronary artery stent placement Chief Complaint Admit Date LOWER EXT April 03, 2024 10:14am LT LEG PAIN April 03, 2024 12:49pm WC FU April 14, 2024 4:20pm INT LAB ORERS July 05, 2024 10:2 7am 1 Y FU July 07, 2024 2:14 pm Reason for Visit Admit Date Gastrocnemius strain, left April 4:20pm Essential (primary) hypertension July 072024 2:14pm Hyperlipidemia July 07, 2024 2:14 pm Nonrheumatic mitral (valve) prolapse [facility] 2024 2:14pm History of coronary artery stent placeme nt July 07, 2024 2:14pm Chief Complaint Admit Date LOWER EXT April 03, 2024 10:14am LT LEG PAIN April 03, 2024 12:49pm [facility] FU April 14, 2024 4:20pm INT LAB ORERS July 05, 2024 10:2 7am 1 Y FU July 07, 2024 2:14 pm lft knee pain/itching July 21, 2024 3 :12pm LEFT KNEE July 21, 2024 4:0 4pm Reason for Visit Admit Date Gastrocnemius strain, left April 4:20pm Essential (primary) hypertension July 072024 2:14pm Hyperlipidemia July 07, 2024 2:14 pm Nonrheumatic mitral (valve) prolapse [facility] 2024 2:14pm History of coronary artery stent placeme nt July 07, 2024 2:14pm Knee pain, left July 21, 2024 3:1 2pm Chronic pruritus July 21, 2024 3:1 2pm Chief Complaint Admit Date INT LAB ORERS July 05, 2024 10:2 7am 1 Y FU July 07, 2024 2:14 pm lft knee pain/itching July 21, 2024 3 :12pm LEFT KNEE July 21, 2024 4:0 4pm MITRAL VALVE PROLAPSE August 04, 2024 12 :33pm LEFT KNEE INJECTION September 01, 2024 10: 41am RIGHT HAND October 12, 2024 2:14 pm Reason for Visit Admit Date Essential (primary) hypertension July 072024 2:14pm Hyperlipidemia July 07, 2024 2:14 pm Nonrheumatic mitral (valve) prolapse [facility] 2024 2:14pm History of coronary artery stent placeme nt July 07, 2024 2:14pm Knee pain, left July 21, 2024 3:1 2pm Chronic pruritus July 21, 2024 3:1 2pm Carpal tunnel syndrome of right wrist Ap [facility] 2024 10:41am Knee pain, left September 01, 2024 10: 41am Carpal tunnel syndrome of right wrist Ju ne 2024 2:14pm Chief Complaint Admit Date INT LAB ORERS July 05, 2024 10:2 7am 1 Y FU July 07, 2024 2:14 pm lft knee pain/itching July 21, 2024 3 :12pm LEFT KNEE July 21, 2024 4:0 4pm MITRAL VALVE PROLAPSE August 04, 2024 12 :33pm LEFT KNEE INJECTION September 01, 2024 10: 41am RIGHT HAND October 12, 2024 2:14 pm LEFT KNEE October 25, 2024 1:33 pm Reason for Visit Admit Date Essential (primary) hypertension July 072024 2:14pm Hyperlipidemia July 07, 2024 2:14 pm Nonrheumatic mitral (valve) prolapse [facility] 2024 2:14pm History of coronary artery stent placeme nt July 07, 2024 2:14pm Knee pain, left July 21, 2024 3:1 2pm Chronic pruritus July 21, 2024 3:1 2pm Carpal tunnel syndrome of right wrist Ap ril 2024 10:41am Knee pain, left September 01, 2024 10: 41am Carpal tunnel syndrome of right wrist Ju ne 2024 2:14pm Knee pain, left October 12, 2024 2:14 pm Osteoarthritis of left knee October 12, 2 025 2:14pm Osteoarthritis of left knee October 25, 2 025 1:33pm Chief Complaint Admit Date INT LAB ORERS July 05, 2024 10:2 7am 1 Y FU July 07, 2024 2:14 pm lft knee pain/itching July 21, 2024 3 :12pm LEFT KNEE July 21, 2024 4:0 4pm MITRAL VALVE PROLAPSE August 04, 2024 12 :33pm LEFT KNEE INJECTION September 01, 2024 10: 41am RIGHT HAND October 12, 2024 2:14 pm LEFT KNEE October 25, 2024 1:33 pm LEFT KNEE November 01, 2024 1:37 pm Reason for Visit Admit Date Essential (primary) hypertension July 072024 2:14pm Hyperlipidemia July 07, 2024 2:14 pm Nonrheumatic mitral (valve) prolapse Mar 2024 2:14pm History of coronary artery stent placeme nt July 07, 2024 2:14pm Knee pain, left July 21, 2024 3:1 2pm Chronic pruritus July 21, 2024 3:1 2pm Carpal tunnel syndrome of right wrist Ap ril 2024 10:41am Knee pain, left September 01, 2024 10: 41am Carpal tunnel syndrome of right wrist Ju ne 2024 2:14pm Knee pain, left October 12, 2024 2:14 pm Osteoarthritis of left knee October 12, 2 025 2:14pm Osteoarthritis of left knee October 25, 2 025 1:33pm Osteoarthritis of left knee November 01, 2 025 1:37pm Chief Complaint Admit Date lft knee pain/itching July 21, 2024 3 :12pm LEFT KNEE July 21, 2024 4:0 4pm MITRAL VALVE PROLAPSE August 04, 2024 12 :33pm LEFT KNEE INJECTION September 01, 2024 10: 41am RIGHT HAND October 12, 2024 2:14 pm LEFT KNEE October 25, 2024 1:33 pm LEFT KNEE November 01, 2024 1:37 pm EORDER November 06, 2024 9:52a m LEFT KNEE November 08, 2024 1:35p m Reason for Visit Admit Date Knee pain, left July 21, 2024 3:1 2pm Chronic pruritus July 21, 2024 3:1 2pm Carpal tunnel syndrome of right wrist Ap ril 2024 10:41am Knee pain, left September 01, 2024 10: 41am Carpal tunnel syndrome of right wrist Ju ne 2024 2:14pm Knee pain, left October 12, 2024 2:14 pm Osteoarthritis of left knee October 12, 2 025 2:14pm Osteoarthritis of left knee October 25, 2 025 1:33pm Osteoarthritis of left knee November 01, 2 025 1:37pm Osteoarthritis of left knee November 08 1:35pm Chief Complaint Admit Date lft knee pain/itching July 21, 2024 3 :12pm LEFT KNEE July 21, 2024 4:0 4pm MITRAL VALVE PROLAPSE August 04, 2024 12 :33pm LEFT KNEE INJECTION September 01, 2024 10: 41am RIGHT HAND October 12, 2024 2:14 pm LEFT KNEE October 25, 2024 1:33 pm LEFT KNEE November 01, 2024 1:37 pm EORDER November 06, 2024 9:52a m LEFT KNEE November 08, 2024 1:35p m 4 M FU November 10, 2024 2:42p m Reason for Visit Admit Date Knee pain, left July 21, 2024 3:1 2pm Chronic pruritus July 21, 2024 3:1 2pm Carpal tunnel syndrome of right wrist Ap [facility] 2024 10:41am Knee pain, left September 01, 2024 10: 41am Carpal tunnel syndrome of right wrist Ju ne 2024 2:14pm Knee pain, left October 12, 2024 2:14 pm Osteoarthritis of left knee October 12, 2 025 2:14pm Osteoarthritis of left knee October 25, 2 025 1:33pm Osteoarthritis of left knee November 01, 2 025 1:37pm Osteoarthritis of left knee November 08 1:35pm Essential (primary) hypertension November 2:42pm Hyperlipidemia November 10, 2024 2:42p m Nonrheumatic mitral (valve) prolapse Nov 2:42pm History of coronary artery stent placeme nt November 10, 2024 2:42pm Chief Complaint Admit Date RIGHT HAND October 12, 2024 2:14 pm LEFT KNEE October 25, 2024 1:33 pm LEFT KNEE November 01, 2024 1:37 pm EORDER November 06, 2024 9:52a m LEFT KNEE November 08, 2024 1:35p m 4 M FU November 10, 2024 2:42p m Reason for Visit Admit Date Carpal tunnel syndrome of right wrist Ju 2024 2:14pm Knee pain, left October 12, 2024 2:14 pm Osteoarthritis of left knee October 12 025 2:14pm Osteoarthritis of left knee October 25 025 1:33pm Osteoarthritis of left knee November 01 025 1:37pm Osteoarthritis of left knee November 08 1:35pm Essential (primary) hypertension November 2:42pm Hyperlipidemia November 10, 2024 2:42p m Nonrheumatic mitral (valve) prolapse Nov 2:42pm History of coronary artery stent placeme nt November 10, 2024 2:42pm Reason for Referral Specialty Diagnoses / Procedures Referred By Sharla otoole Referred To Contact Diagnoses Goiter, nontoxic, multinodular Procedures US Thyroid Only Bib Franz MD [address] [place] [address] Referral ID Status Reason Start Date Expiration Date V isits Requested Visits Authorized [id number] Authorized 07/08/2023 07/07/2024 1 1 Additional Source Comments (unrecognized sect ion and content) No Status Records FoundNo Status Records FoundNo Status Records FoundNo Status Records Found INFORMATION SOURCE (unrecogn ized section and content) DATE CREATED AUTHOR 05/01/2018 [facility] [place] DATE CREATED AUTHOR AUTHOR'S ORGANIZ ATION 08/11/2023 [facility] DATE CREATED AUTHOR AUTHOR'S ORGANIZ ATION 04/04/2024 [facility] DATE CREATED AUTHOR AUTHOR'S ORGANIZ ATION 01/09/2025 [facility] Reason for Visit (unrecogniz ed section and content) Reason Comments Thyroid Problem Reason For Visit Description Start Date New Complaint Preliminary reason f or visit data, not yet signed by the author as of neck pain Reason Comments Pain Left leg pain x 2 we eks Goals (unrecognized section and content) Goals may be documented in a n alternate sectionGoals may be documented in an alternate sectionGoals may be documented in an alternate sectionGoals may be documented in an alternate sectionGoals may be documented in an alternate sectionGoals may be documented in an alternate sectionGoals may be documented in an alternate sectionGoals may be documented in an alternate sectionGoals may be documented in an alternate sectionGoals may be documented in an alternate sectionGoals may be documented in an alternate sectionGoals may be documented in an alternate sectionGoals may be documented in an alternate sectionGoals may be documented in an alternate sectionGoals may be documented in an alternate sectionGoals may be documented in an alternate sectionGoals may be documented in an alternate sectionGoals may be documented in an alternate sectionGoals may be documented in an alternate sectionGoals may be documented in an alternate sectionGoals may be documented in an alternate sectionGoals may be documented in an alternate section Care Teams (unrecognized sec tion and content) Team Status: Active Member Role Status Dates Dr. Gauri Vila , DO Family Provider Active Dr. Gauri Vila , DO Primary Care Provider Active Team Status: Inactive Member Role Status Dates Dr. Gauri Vila , DO Primary Care Provider Active Dr. Spenser Winston MD Attending Provider, Referr ing Provider Active Dr. Adam Maloney MD Other Provider Active Team Status: Inactive Member Role Status Dates Dr. Gauri Vila , DO Primary Care Provider Active Fer Carr MD Attending Provider, Emergency Provid er Active Team Status: Inactive Member Role Status Dates Dr. Gauri Vila , DO Primary Care Pr ovider, Attending Provider, Referring Provider Active Team Status: Inactive Member Role Status Dates Dr. Gauri Vila , DO Primary Care Provider, Referr ing Provider Active Robin CAST, PA Attending Provider Active Team Status: Inactive Member Role Status Dates Dr. Gauri Vila , DO Primary Care Provider, Referr ing Provider Active Omi CAST, PA Attending Provider Active Team Status: Inactive Member Role Status Dates Dr. Gauri Vila , DO Primary Care Provider Active Omi CAST PA Attending Provider, Referring Pr ovider Active Team Status: Inactive Member Role Status Dates Dr. Gauri Vila , DO Primary Care Provider, Referr ing Provider Active Dr. Cam Bucio DO Attending Provider Active Team Status: Inactive Member Role Status Dates Dr. Gauri Vila DO Primary Care Provider, Referr ing Provider Active Dr. Adam Maloney MD Attending Provider Active Team Status: Inactive Member Role Status Dates Dr. Gauri Vila DO Primary Care Provider Active Dr. Aadm Maloney MD Attending Provider, Referring Pro vider Active Reimbursement Director Relationship Specialty Start Date End Date Gauri Vila DO [address] [place] [address] PCP - General Family Medicine 04/04/16 Team Status: Inactive Member Role Status Dates Dr. Gauri Vila DO Primary Care Provider Active Dr. Bib Franz MD Attending Provider, Referring Provider Active Team Status: Active Member Role Status Dates Dr. Gauri Vila DO Primary Care Provider Active Dr. Bib Franz MD Attending Provider, Referring Provider Active Reimbursement Director Relationship Specialty Start Date End Date Gauri Vila DO [address] [place] [address] PCP - General Family Medicine 04/04/16 Reimbursement Director Relationship Specialty Start Date End Date Gauri Vila DO [address] [place] [id number] PCP - General Family Medicine 04/03/24 Team Status: Active Member Role Status Dates Dr. Gauri Vila DO Primary Care Provider Active Team Status: Inactive Member Role Status Dates Dr. Gauri Vila DO Primary Care Provider Active Start: April 03, 2024 End: April 03, 2024 Dr. Lisa Fernandez DO Attending Provider Active S tart: April 03, 2024 End: April 03, 2024 Dr. Lisa Fernandez DO Emergency Provider Active S tart: April 03, 2024 End: April 03, 2024 Team Status: Active Member Role Status Dates Dr. Drake Carmen MD Attending Provider Active Start: April 03, 2024 Dr. Lisa Fernandez DO Referring Provider Active S tart: April 03, 2024 Team Status: Inactive Member Role Status Dates Dr. Gauri Vila DO Primary Care Provider Active Start: April 14, 2024 End: April 14, 2024 Dr. Gauri Vila DO Attending Provider Active Start: April 14, 2024 End: April 14, 2024 Dr. Gauri Vila DO Referring Provider Active Start: April 14, 2024 End: April 14, 2024 Team Status: Inactive Member Role Status Dates Dr. Gauri Vila DO Primary Care Provider Active Start: July 05, 2024 End: July 05, 2024 Carmen Garcia PA, PA Attending Provider Active Start: July 05, 2024 End: July 05, 2024 Carmen Garcia PA, PA Referring Provider Active Start: July 05, 2024 End: July 05, 2024 Team Status: Inactive Member Role Status Dates Dr. Gauri Vila DO Primary Care Provider Active Start: July 07, 2024 End: July 07, 2024 Dr. Gauri Vila DO Referring Provider Active Start: July 07, 2024 End: July 07, 2024 Carmen Garcia PA, PA Attending Provider Active Start: July 07, 2024 End: July 07, 2024 Team Status: Inactive Member Role Status Dates Dr. Gauri Vila DO Primary Care Provider Active Start: July 21, 2024 End: July 21, 2024 Dr. Gauri Vila DO Attending Provider Active Start: July 21, 2024 End: July 21, 2024 Dr. Gauri Vila DO Referring Provider Active Start: July 21, 2024 End: July 21, 2024 Team Status: Inactive Member Role Status Dates Dr. Gauri Vila DO Primary Care Provider Active Start: August 04, 2024 End: August 04, 2024 Carmen Garcia PA, PA Attending Provider Active Start: August 04, 2024 End: August 04, 2024 Carmen Garcia PA, PA Referring Provider Active Start: August 04, 2024 End: August 04, 2024 Team Status: Active Member Role Status Dates Dr. Gauri Vila DO Primary Care Provider Active Start: August 04, 2024 Dr. Adam Maloney MD Attending Provider Active S tart: August 04, 2024 Team Status: Inactive Member Role Status Dates Dr. Gauri Vila DO Primary Care Provider Active Start: September 01, 2024 End: September 01, 2024 Dr. Gauri Vila DO Attending Provider Active Start: September 01, 2024 End: September 01, 2024 Dr. Gauri Vila DO Referring Provider Active Start: September 01, 2024 End: September 01, 2024 Team Status: Inactive Member Role Status Dates Dr. Gauri Vila DO Primary Care Provider Active Start: October 12, 2024 End: October 12, 2024 Dr. Gauri Vila DO Referring Provider Active Start: October 12, 2024 End: October 12, 2024 Edwar Person MD Attending Provider Active St art: October 12, 2024 End: October 12, 2024 Team Status: Inactive Member Role Status Dates Dr. Gauri Vila DO Primary Care Provider Active Start: October 25, 2024 End: October 25, 2024 Dr. Gauri Vila DO Referring Provider Active Start: October 25, 2024 End: October 25, 2024 Edwar Person MD Attending Provider Active St art: October 25, 2024 End: October 25, 2024 Team Status: Active Member Role/Relationship Status Dates Dr. Gauri Vila DO Primary Care Provider Active Team Status: Inactive Member Role/Relationship Status Dates Dr. Gauri Vila DO Primary Care Provider Active Start: July 05, 2024 End: July 05, 2024 Carmen CAST PA Attending Provider Active Start: July 05, 2024 End: July 05, 2024 Carmen CAST PA Referring Provider Active Start: July 05, 2024 End: July 05, 2024 Team Status: Inactive Member Role/Relationship Status Dates Dr. Gauri Vila DO Primary Care Provider Active Start: July 07, 2024 End: July 07, 2024 Dr. Gauri Vila DO Referring Provider Active Start: July 07, 2024 End: July 07, 2024 Carmen CAST PA Attending Provider Active Start: July 07, 2024 End: July 07, 2024 Team Status: Inactive Member Role/Relationship Status Dates Dr. Gauri Vila DO Primary Care Provider Active Start: July 21, 2024 End: July 21, 2024 Dr. Gauri Vila DO Attending Provider Active Start: July 21, 2024 End: July 21, 2024 Dr. Gauri Vila DO Referring Provider Active Start: July 21, 2024 End: July 21, 2024 Team Status: Inactive Member Role/Relationship Status Dates Dr. Gauri Vila DO Primary Care Provider Active Start: July 21, 2024 End: July 21, 2024 Dr. Gauri Vila DO Attending Provider Active Start: July 21, 2024 End: July 21, 2024 Dr. Gauri Vila DO Referring Provider Active Start: July 21, 2024 End: July 21, 2024 Team Status: Inactive Member Role/Relationship Status Dates Dr. Gauri Vila DO Primary Care Provider Active Start: August 04, 2024 End: August 04, 2024 Carmen Garcia PA, PA Attending Provider Active Start: August 04, 2024 End: August 04, 2024 Carmen Garcia PA, PA Referring Provider Active Start: August 04, 2024 End: August 04, 2024 Team Status: Active Member Role/Relationship Status Dates Dr. Gauri Vila DO Primary Care Provider Active Start: August 04, 2024 Dr. Adam Maloney MD Attending Provider Active S tart: August 04, 2024 Team Status: Inactive Member Role/Relationship Status Dates Dr. Gauri Vila DO Primary Care Provider Active Start: September 01, 2024 End: September 01, 2024 Dr. Gauri Vila DO Attending Provider Active Start: September 01, 2024 End: September 01, 2024 Dr. Gauri Vila DO Referring Provider Active Start: September 01, 2024 End: September 01, 2024 Team Status: Inactive Member Role/Relationship Status Dates Dr. Gauri Vila DO Primary Care Provider Active Start: October 12, 2024 End: October 12, 2024 Dr. Gauri Vila DO Referring Provider Active Start: October 12, 2024 End: October 12, 2024 Edwar Person MD Attending Provider Active St art: October 12, 2024 End: October 12, 2024 Team Status: Inactive Member Role/Relationship Status Dates Dr. Gauri Vila DO Primary Care Provider Active Start: October 25, 2024 End: October 25, 2024 Dr. Gauri Vila DO Referring Provider Active Start: October 25, 2024 End: October 25, 2024 Edwar Person MD Attending Provider Active St art: October 25, 2024 End: October 25, 2024 Team Status: Inactive Member Role/Relationship Status Dates Dr. Gauri Vila DO Primary Care Provider Active Start: November 01, 2024 End: November 01, 2024 Dr. Gauri Vila DO Referring Provider Active Start: November 01, 2024 End: November 01, 2024 Edwar Person MD Attending Provider Active St art: November 01, 2024 End: November 01, 2024 Team Status: Inactive Member Role/Relationship Status Dates Dr. Gauri Vila DO Primary Care Provider Active Start: July 21, 2024 End: July 21, 2024 Dr. Gauri Vila DO Attending Provider Active Start: July 21, 2024 End: July 21, 2024 Dr. Gauri Vila DO Referring Provider Active Start: July 21, 2024 End: July 21, 2024 Team Status: Inactive Member Role/Relationship Status Dates Dr. Gauri Vila DO Primary Care Provider Active Start: July 21, 2024 End: July 21, 2024 Dr. Gauri Vial DO Attending Provider Active Start: July 21, 2024 End: July 21, 2024 Dr. Gauri Vila DO Referring Provider Active Start: July 21, 2024 End: July 21, 2024 Team Status: Inactive Member Role/Relationship Status Dates Dr. Gauri Vila DO Primary Care Provider Active Start: August 04, 2024 End: August 04, 2024 Carmen Garcia PA, PA Attending Provider Active Start: August 04, 2024 End: August 04, 2024 Carmen Garcia PA, PA Referring Provider Active Start: August 04, 2024 End: August 04, 2024 Team Status: Active Member Role/Relationship Status Dates Dr. Gauri Vila DO Primary Care Provider Active Start: August 04, 2024 Dr. Adam Maloney MD Attending Provider Active S tart: August 04, 2024 Team Status: Inactive Member Role/Relationship Status Dates Dr. Gauri Vila DO Primary Care Provider Active Start: September 01, 2024 End: September 01, 2024 Dr. Gauri Vila DO Attending Provider Active Start: September 01, 2024 End: September 01, 2024 Dr. Gauri Vila DO Referring Provider Active Start: September 01, 2024 End: September 01, 2024 Team Status: Inactive Member Role/Relationship Status Dates Dr. Gauri Vila DO Primary Care Provider Active Start: October 12, 2024 End: October 12, 2024 Dr. Gauri Vila DO Referring Provider Active Start: October 12, 2024 End: October 12, 2024 Edwar Person MD Attending Provider Active St art: October 12, 2024 End: October 12, 2024 Team Status: Inactive Member Role/Relationship Status Dates Dr. Gauri Vila DO Primary Care Provider Active Start: October 25, 2024 End: October 25, 2024 Dr. Gauri Vila DO Referring Provider Active Start: October 25, 2024 End: October 25, 2024 Edwar Person MD Attending Provider Active St art: October 25, 2024 End: October 25, 2024 Team Status: Inactive Member Role/Relationship Status Dates Dr. Gauri Vila DO Primary Care Provider Active Start: November 01, 2024 End: November 01, 2024 Dr. Gauri Vila DO Referring Provider Active Start: November 01, 2024 End: November 01, 2024 Edwar Person MD Attending Provider Active St art: November 01, 2024 End: November 01, 2024 Team Status: Active Member Role/Relationship Status Dates Dr. Gauri Vila DO Primary Care Provider Active Start: November 06, 2024 Carmen CAST PA Attending Provider Active Start: November 06, 2024 Carmen CAST PA Referring Provider Active Start: November 06, 2024 Team Status: Inactive Member Role/Relationship Status Dates Dr. Gauri Vila DO Primary Care Provider Active Start: November 08, 2024 End: November 08, 2024 Dr. Gauri Vila DO Referring Provider Active Start: November 08, 2024 End: November 08, 2024 Edwar Person MD Attending Provider Active St art: November 08, 2024 End: November 08, 2024 Team Status: Inactive Member Role/Relationship Status Dates Dr. Gauri Vila DO Primary Care Provider Active Start: November 10, 2024 End: November 10, 2024 Dr. Gauri Vila DO Referring Provider Active Start: November 10, 2024 End: November 10, 2024 Carmen CAST PA Attending Provider Active Start: November 10, 2024 End: November 10, 2024 Team Status: Inactive Member Role/Relationship Status Dates Dr. Gauri Vila DO Primary Care Provider Active Start: November 06, 2024 End: November 06, 2024 Carmen CAST PA Attending Provider Active Start: November 06, 2024 End: November 06, 2024 Carmen CAST PA Referring Provider Active Start: November 06, 2024 End: November 06, 2024 Team Status: Inactive Member Role/Relationship Status Dates Dr. Gauri Vila DO Primary Care Provider Active Start: October 12, 2024 End: October 12, 2024 Dr. Gauri Vila DO Referring Provider Active Start: October 12, 2024 End: October 12, 2024 Edwar Person MD Attending Provider Active St art: October 12, 2024 End: October 12, 2024 Team Status: Inactive Member Role/Relationship Status Dates Dr. Gauri Vila DO Primary Care Provider Active Start: October 25, 2024 End: October 25, 2024 Dr. Gauri Vila DO Referring Provider Active Start: October 25, 2024 End: October 25, 2024 Edwar Person MD Attending Provider Active St art: October 25, 2024 End: October 25, 2024 Team Status: Inactive Member Role/Relationship Status Dates Dr. Gauri Vila DO Primary Care Provider Active Start: November 01, 2024 End: November 01, 2024 Dr. Gauri Vila DO Referring Provider Active Start: November 01, 2024 End: November 01, 2024 Edwar Person MD Attending Provider Active St art: November 01, 2024 End: November 01, 2024 Team Status: Inactive Member Role/Relationship Status Dates Dr. Gauri Vila DO Primary Care Provider Active Start: November 06, 2024 End: November 06, 2024 Carmen CAST PA Attending Provider Active Start: November 06, 2024 End: November 06, 2024 Carmen CAST, PA Referring Provider Active Start: November 06, 2024 End: November 06, 2024 Team Status: Inactive Member Role/Relationship Status Dates Dr. Gauri Vila DO Primary Care Provider Active Start: November 08, 2024 End: November 08, 2024 Dr. Gauri Vila DO Referring Provider Active Start: November 08, 2024 End: November 08, 2024 Edwar Person MD Attending Provider Active St art: November 08, 2024 End: November 08, 2024 Team Status: Inactive Member Role/Relationship Status Dates Dr. Gauri Vila DO Primary Care Provider Active Start: November 10, 2024 End: November 10, 2024 Dr. Gauri Vila DO Referring Provider Active Start: November 10, 2024 End: November 10, 2024 Carmen CAST, PA Attending Provider Active Start: November 10, 2024 End: November 10, 2024 Team Status: Inactive Member Role/Relationship Status Dates Dr. Gauri Vila DO Primary Care Provider Active Start: December 31, 2024 End: December 31, 2024 Dr. Spenser Winston MD Attending Provider Active Start: December 31, 2024 End: December 31, 2024 Dr. Spenser Winston MD Referring Provider Active Start: December 31, 2024 End: December 31, 2024 Source Comments (unrecognize d section and content) In the event this informatio n is protected by the Federal Confidentiality of Alcohol and Drug Abuse Patient Records regulations: The Federal rules restrict any use of the information to criminally investigate or prosecute any alcohol or drug abuse patient.[facility] FOR RECORDS PERTAINING TO PATIENTS WHO ARE [...] BE BASED ON THE PRIMARY CLINICAL RECORDS. [facility] [employer] [facility]. provides no warranty or guarantee of the accuracy or completeness of information in this document.
== END | disposition home or self-care (01) ==
LOC: LAB 08:35
PROVIDERS: PCP Family Medicine; Referring Provider Urology; Visit Provider Urology
DX: N30.00 Acute cystitis without hematuria (principal)
CPT/HCPCS: 87086; 87088

== ENCOUNTER 2025-01-12 21:05 | Emergency (ER) | payer MEDICARE, OTHER, SELFPAY ==
[2025-01-12 21:06] VITALS: BP 159/87; PULSE 76; TEMP 36.5; O2SAT 99; BMI 25.2
[2025-01-12] MEDS: Lidocaine Jelly 2% 20 ML Syringe (URO-JET) 1 APPLIC TOPICAL (22:58)
--- NOTE | 2025-01-12 23:00 | EX.ED.DYSGE1 ---
HPI History of Present Illness Chief Complaint: Complaint Informant: patient and spouse/S.O. Narrative Narrative: Patient is a 79-year-old male with past medical history of hypertension hyperlipidemia. He states that he was recently seen by urology and had a camera in his bladder. He states he was placed on 2 medications for his prostate and recently antibiotics as well. He states that today around 6 PM he had sensation that he had to urinate but has not been able to do so. He states the pain has been increasing since that time and despite trying to urinate he has not been able to relieve himself. Secondary to the inability to urinate and pain he presents for evaluation [facility] Medical History Osteoarthritis of left knee Right shoulder strain Scabies Thyroid goiter Back pain due to injury Family history of colon cancer Seborrheic keratoses Cervical disc disease Cervical cord compression with myelopathy Painful neck Swallowing problem Chronic back pain Nonrheumatic mitral (valve) prolapse Essential (primary) hypertension Back pain Obstructive sleep apnea GERD (gastroesophageal reflux disease) Atherosclerosis of coronary artery of [place] heart without angina pectoris Hyperlipidemia Home Medications ?Medication ?Instructions ?Recorded ?Last Taken ?Type coenzyme [id number] 100 mg-20 1 ea PO DAILY 03/25/13 07/03/20 History mg capsule multivitamin with folic acid 400 1 tab PO DAILY 03/25/13 07/03/20 History mcg tablet omega-3 fatty acids 1,000 mg 1,000 mg PO DAILY 08/20/18 07/03/20 History capsule aspirin 81 mg chewable tablet 81 mg PO DAILY #90 tabs 08/15/20 11/19/21 Rx nitroglycerin 0.4 mg sublingual 0.4 mg sublingual Q5-15M PRN chest 07/04/23 Unknown Rx tablet (Nitrostat) pain #25 tabs magnesium 200 mg tablet 200 mg PO QDAY 01/13/24 Unknown History pregabalin 50 mg capsule 50 mg PO QHS PRN neck pain #90 caps 02/05/24 Unknown Rx lisinopril 10 mg tablet 10 mg PO BID #180 tabs 06/02/24 Unknown Rx atorvastatin 80 mg tablet See Rx Instructions .Route 07/26/24 Unknown Rx .COMPLEX #90 tabs metoprolol tartrate 50 mg tablet 50 mg PO BID #180 tabs 07/26/24 Unknown Rx clopidogrel 75 mg tablet See Rx Instructions .Route 09/22/24 Unknown Rx .COMPLEX #90 tabs amlodipine 2.5 mg tablet 2.5 mg PO DAILY #90 tabs 10/18/24 Unknown Rx Allergy/AdvReac Type Severity Reaction Status Date / Time niacin (From Niaspan Allergy Extreme Verified 01/12/25 21:06 Extended-Release) Itching cyclobenzaprine AdvReac Unknown Heart Verified 01/12/25 21:06 feels like wants to stop Family History Father CAD (coronary artery disease) Diabetes Heart disease Myocardial infarction Hypertension Mother Heart disease Diabetes CVA (cerebral vascular accident) Sister Breast cancer Colon cancer Brother Colon cancer Surgical History History of orthopedic surgery History of facial surgery History of shoulder surgery H/O right knee surgery History of left heart catheterization (11/19/21) History of coronary artery stent placement (05/16/10) Social History household members: spouse housing: house current occupational status: retired Smoking Status: Former smoker how long ago did patient quit smokin alcohol intake: former substance use type: does not use what type of physical activity do you participate in: walking and bicycling frequency: daily seatbelt use: always do you feel safe at home: Yes ROS ROS ED Constitutional Constitutional ED: Denies chills or fever(s) ENT ENT ED: Denies sore throat Cardiovascular Cardiovascular: Denies chest pain Respiratory/Chest Respiratory/Chest: Denies cough or dyspnea Gastrointestinal Gastrointestinal: Reports abdominal pain; Denies diarrhea, nausea or vomiting Genitourinary Genitourinary ED: Reports other Details: Positive anuria Musculoskeletal Musculoskeletal: Denies myalgias Integumentary Denies rash Neurologic Neurologic: Denies headache(s) Hematologic/Lymphatic Hematologic/Lymphatic: Denies easy bleeding or easy bruising EXAM Physical Exam Const Vital Signs: 01/12/25 21:06 01/13/25 00:00 01/13/25 00:12 Temperature 97.7 F L 98.6 F Temperature Source Oral Pulse Rate 76 70 70 Respiratory Rate 18 18 Blood Pressure 159/87 H 145/80 H 145/80 H Blood Pressure Mean 111 101 101 Pulse Ox 99 99 99 Oxygen Delivery Method Room Air Positive well nourished and well developed General Appearance ED: well developed; Negative for pallor HEENT HEENT Narrative: Normocephalic atraumatic Eyes PERRL and EOMs intact bilaterally General Eye ED: Negative for scleral icterus Neck supple Resp normal respiratory effort and clear to auscultation bilaterally Cardio regular rate and regular rhythm Rate: other Other Details: Radial and carotid pulses are equal and symmetric GI non-distended GI Narrative: In the lower midline abdomen/suprapubic region there is organomegaly consistent with urinary retention. There is pain with palpation at this site. The remainder of the abdomen is soft nontender and nondistended with normal active bowel. Auscultation: normoactive bowel sounds Palpation: soft Narrative: Normal circumcised male without blood or discharge from the urethral meatus No testicular swelling pain or masses noted. Back/Spine no CVA tenderness Extremity normal to inspection Neuro oriented x3, CN's II-XII intact bilaterally and no sensory deficits noted Sensorium / Orientation: alert Motor Exam: strength 5/5 throughout Psych mental status grossly normal Skin no rashes or lesions noted General Skin Exam: Negative for jaundice or pallor MDM MDM MDM Narrative Medical decision making narrative: Patient presented to the ER hypertensive but has a past medical history of this. He reported recent cystoscopy and then difficulty urinating since that time. Patient most likely has prostate irritation from the recent procedure. As he reports that his ability urinate is only been gone for roughly 4 hours I have low concern for acute kidney injury and therefore feel no need for blood work. The patient is currently on Azo and Keflex from his urologist and there from a concern for a urinary tract infection is low and I do not feel the need to repeat a urine sample either. The patient had a Lin catheter placed and was able to drain roughly 600 mL of urine. After doing this he reported feeling much better and there was no more organomegaly/distention noted on the physical exam. Therefore at this time with resolution of symptoms and concern for KIANA being extremely low I do not feel there is need for further intervention in the ER at this time and he can follow-up with his urologist as an outpatient. History & Record Review Discussion w/independent historian: Patient and Significant other Discharge Plan Triage Chief Complaint: Complaint ED Provider: Keshawn Davidson Dx/Rx/DC Orders Clinical Impression: Acute urinary retention, Essential (primary) hypertension, Hyperlipidemia Instructions: ED Lin Catheter, Care, ED Urinary Retention, Male Prescriptions: No Action omega-3 fatty acids 1,000 mg capsule 1,000 mg PO DAILY aspirin 81 mg tablet,chewable 81 mg PO DAILY Qty: 90 3RF nitroglycerin [Nitrostat] 0.4 mg tablet, sublingual 0.4 mg sublingual Q5-15M PRN (Reason: chest pain) Qty: 25 3RF Rx Instructions: do not exceed 3 doses per episode magnesium 200 mg tablet 200 mg PO QDAY multivitamin with folic acid 1 TABLET tablet 1 tab PO DAILY Patient Comments: Vitamins coenzyme [id number] 1 EACH capsule 1 ea PO DAILY Patient Comments: Supplement for cholestrol pregabalin 50 mg capsule 50 mg PO QHS PRN (Reason: neck pain) Qty: 90 0RF lisinopril 10 mg tablet 10 mg PO BID Qty: 180 3RF atorvastatin 80 mg tablet See Rx Instructions .ROUTE .COMPLEX Qty: 90 3RF Dose Instruction: TAKE 1 TABLET BY MOUTH EVERYDAY AT BEDTIME Rx Instructions: TAKE 1 TABLET BY MOUTH EVERYDAY AT BEDTIME metoprolol tartrate 50 mg tablet 50 mg PO BID Qty: 180 3RF clopidogrel 75 mg tablet See Rx Instructions .ROUTE .COMPLEX Qty: 90 3RF Dose Instruction: TAKE 1 TABLET BY MOUTH EVERY DAY Rx Instructions: TAKE 1 TABLET BY MOUTH EVERY DAY amlodipine 2.5 mg tablet 2.5 mg PO DAILY Qty: 90 0RF Primary Care Provider: Azam Haynes Referrals: Azam Haynes DO [Primary Care Provider] - Spenser Winston MD [Med Staff - Active Staff] - (Urinary retention) Activity Restrictions/Additional Instructions: Please continue all the medication given to you by your urologist. Keep the catheter in place and follow-up with the urologist to discuss removal. Return to the ER should you have any further concerns Print Language: Indonesian Disposition Disposition: Home, Self Care Discharge Date/Time: 01/13/25 00:13
[2025-01-13] VITALS: BP 145/80; PULSE 70; RESP 18; O2SAT 99
[2025-01-13 00:12] VITALS: BP 145/80; PULSE 70; RESP 18; TEMP 37; O2SAT 99
== END 2025-01-13 00:13 | disposition home or self-care (01) ==
PROVIDERS: Emergency Provider Emergency Medicine; PCP Family Medicine; Visit Provider Emergency Medicine
DX: R33.9 Retention of urine, unspecified (principal); I10 Essential (primary) hypertension; E78.5 Hyperlipidemia, unspecified; I25.10 Atherosclerotic heart disease of native coronary artery without angina pectoris; Z87.891 Personal history of nicotine dependence; Z95.5 Presence of coronary angioplasty implant and graft; R10.9 Unspecified abdominal pain; K21.9 Gastro-esophageal reflux disease without esophagitis
CPT/HCPCS: 51702; 99283; A4216

== ENCOUNTER 2025-01-14 14:02 | Inpatient (IN) | payer MEDICARE, OTHER, SELFPAY ==
[2025-01-14] VITALS (15 sets, daily range): BP systolic 134–165; BP diastolic 60–93; PULSE 64–89; RESP 16–18; TEMP 36.2–36.9; O2SAT 94–100; BMI 24.3
[2025-01-14 15:42] LABS: Hematocrit 45.5 % (40-54); Hemoglobin 15.5 g/dL (13.0-16.5); Immature Granulocytes Count 0.060 X10^3/uL (0.0-0.0); Mean Corp Hgb Conc 34.1 g/dL (32-36); Mean Corpuscular Volume 89.0 fL (80-94); Mean Platelet Vol. 9.9 fl (6.2-12.0); NRBC Flagged by Analyzer 0 % (0-5); Platelet Count 262 K/mm3 (150-450); RBC Distribution Width CV 12.6 % (11.6-14.6); RBC Distribution Width SD 41.6 fl (35.1-43.9); Red Blood Count 5.11 M/mm3 (4.6-6.2); White Blood Count 10.0 K/mm3 (4.4-11.0)
[2025-01-14 16:18] LABS: Alcohol, Blood (Medical)-Serum < 10.1 mg/dL (<=10.0)
--- NOTE | 2025-01-14 16:25 | EX.ED.GUMALE ---
HPI History of Present Illness Chief Complaint: Male Pain/Injury Detail of Chief Complaint: Prostate pain and suicidal thoughts Informant: patient and spouse/S.O. Pain Onset: Today Context: Sudden Onset Timing: Intermittent Current Severity: Gone Maximum Severity: Severe Worsened by: Nothing Relieved by: Nothing Related History Sexually: Single Partner STD: No Epididymitis: No Bladder/Kidney Infection: No Enlarged Prostate: Yes Prostate Infection: No Prostate Cancer: No Narrative Narrative: Patient is a 79-year-old male who was seen a couple days ago for urinary retention had Lin placed. Patient presents because of intermittent severe pain. He was seen yesterday by Dr. Winston. States he had a prostate exam but was not told if there was anything abnormal. Patient has made verbal threats that he would kill himself. He does have access to guns. His threats are lethal. is concerned. Patient states he made those comments because he wants something done he cannot wait till February 02. He denies fever, chills night sweats. He denies headache, visual, ocular auditory symptoms. He denies cardiac or respiratory symptoms. He denies abdominal symptoms. Prior similar symptoms: Yes Recent Illness/Hospitalization: Yes [facility] Medical History Osteoarthritis of left knee Right shoulder strain Scabies Thyroid goiter Back pain due to injury Family history of colon cancer Seborrheic keratoses Cervical disc disease Cervical cord compression with myelopathy Painful neck Swallowing problem Chronic back pain Nonrheumatic mitral (valve) prolapse Essential (primary) hypertension Back pain Obstructive sleep apnea GERD (gastroesophageal reflux disease) Atherosclerosis of coronary artery of [place] heart without angina pectoris Hyperlipidemia Home Medications ?Medication ?Instructions ?Recorded ?Last Taken ?Type coenzyme [id number] 100 mg-20 1 ea PO DAILY 03/25/13 07/03/20 History mg capsule multivitamin with folic acid 400 1 tab PO DAILY 03/25/13 07/03/20 History mcg tablet omega-3 fatty acids 1,000 mg 1,000 mg PO DAILY 08/20/18 07/03/20 History capsule aspirin 81 mg chewable tablet 81 mg PO DAILY #90 tabs 08/15/20 11/19/21 Rx nitroglycerin 0.4 mg sublingual 0.4 mg sublingual Q5-15M PRN chest 07/04/23 Unknown Rx tablet (Nitrostat) pain #25 tabs magnesium 200 mg tablet 200 mg PO QDAY 01/13/24 Unknown History pregabalin 50 mg capsule 50 mg PO QHS PRN neck pain #90 caps 02/05/24 Unknown Rx lisinopril 10 mg tablet 10 mg PO BID #180 tabs 06/02/24 Unknown Rx atorvastatin 80 mg tablet See Rx Instructions .Route 07/26/24 Unknown Rx .COMPLEX #90 tabs metoprolol tartrate 50 mg tablet 50 mg PO BID #180 tabs 07/26/24 Unknown Rx clopidogrel 75 mg tablet See Rx Instructions .Route 09/22/24 Unknown Rx .COMPLEX #90 tabs amlodipine 2.5 mg tablet 2.5 mg PO DAILY #90 tabs 10/18/24 Unknown Rx Allergy/AdvReac Type Severity Reaction Status Date / Time niacin (From Niaspan Allergy Extreme Verified 01/14/25 14:04 Extended-Release) Itching cyclobenzaprine AdvReac Unknown Heart Verified 01/14/25 14:04 feels like wants to stop Family History Father CAD (coronary artery disease) Diabetes Heart disease Myocardial infarction Hypertension Mother Heart disease Diabetes CVA (cerebral vascular accident) Sister Breast cancer Colon cancer Brother Colon cancer Surgical History History of orthopedic surgery History of facial surgery History of shoulder surgery H/O right knee surgery History of left heart catheterization (11/19/21) History of coronary artery stent placement (05/16/10) Social History household members: spouse housing: house current occupational status: retired Smoking Status: Former smoker how long ago did patient quit smokin alcohol intake: former substance use type: does not use what type of physical activity do you participate in: walking and bicycling frequency: daily seatbelt use: always do you feel safe at home: Yes ROS ROS ED Constitutional Constitutional ED: Denies chills, fever(s), subjective or sweats Eyes Eyes: Denies blurry vision or change in vision Cardiovascular Cardiovascular: Denies chest pain or palpitations Respiratory/Chest Respiratory/Chest: Denies cough, dyspnea or dyspnea on exertion Gastrointestinal Gastrointestinal: Denies abdominal pain, diarrhea, nausea or vomiting Genitourinary Genitourinary ED: Reports other Details: Patient has indwelling Lin. He complains of pain in the perineal region when he sits. He denies testicular pain or scrotal swelling. ; Denies dysuria, hematuria or urinary frequency Musculoskeletal Musculoskeletal: Denies arthralgias, back pain or myalgias Integumentary Denies rash Neurologic Neurologic: Denies paresthesias or weakness Psychiatric Psychiatric: Reports depression and suicidal thoughts; Denies anxiety Endocrine Endocrinology: Denies polydipsia, polyphagia or polyuria Hematologic/Lymphatic Hematologic/Lymphatic: Denies easy bleeding or easy bruising EXAM Physical Exam Const Vital Signs: 01/14/25 14:04 01/14/25 15:33 01/14/25 16:00 Temperature 98.4 F Temperature Source Temporal Pulse Rate 68 69 88 Respiratory Rate 18 16 16 Blood Pressure 165/86 H 155/70 H 138/70 H Blood Pressure Mean 112 98 92 Pulse Ox 98 100 98 Oxygen Delivery Method Room Air Positive well nourished and well developed General Appearance ED: well developed and NAD; Negative for pallor HEENT Reports moist mucous membranes normocephalic and atraumatic Eyes PERRL and EOMs intact bilaterally General Eye ED: Negative for pale conjunctiva or scleral icterus Neck no lymphadenopathy, supple and no JVD Resp normal respiratory effort and clear to auscultation bilaterally Cardio regular rate, regular rhythm, S1 normal heart sound, S2 normal heart sound and no murmurs GI non-tender, non-distended and no masses no CVA tenderness Narrative: Patient tested send bilateral. No testicular tenderness. There is no swelling of the scrotum. Rectal exam reveals an enlarged prostate. The prostate is not boggy or tender nor is it warm. Back/Spine no CVA tenderness Extremity normal to inspection General Extremety ED: Negative for edema or pulses abnormal General Extremity: Negative for edema or pulses abnormal Neuro oriented x3, CN's II-XII intact bilaterally, moves all extremities and deep tendon reflexes 2+ bilaterally Sensorium / Orientation: alert Psych Mood & Affect: depressed Thought Process: normal thought process Thought Content: No normal thought content Skin General Skin Exam: Negative for jaundice or pallor Lesions: no lesions Rashes: no rashes MDM MDM MDM Narrative Medical decision making narrative: Patient with intermittent severe pain. Patient states he cannot take the Lin. Suspect he is having spasms due to the Lin. Spoke with Dr. Glynn. Plan is admission and case management see him regarding his suicidal thoughts. Patient was pink slipped. Patient will be reassessed in 24 hours to determine if he needs placement. Lab Data Attestation: I reviewed the patient's lab results. Lab results narrative: CBC is unremarkable. Other tests are pending will need to be reviewed by admitting team since the surgical team is here to take him to the OR. Labs: Laboratory Results - last 24 hr 01/14/25 15:30 WBC 10.0 RBC 5.11 Hgb 15.5 Hct 45.5 MCV 89.0 MCH 30.3 MCHC 34.1 RDW Std Deviation 41.6 RDW Coeff of Leeroy 12.6 Plt Count 262 MPV 9.9 Immature Gran % (Auto) 0.600 Neut % (Auto) 78.4 H Lymph % (Auto) 11.4 L [place] % (Auto) 8.8 Eos % (Auto) 0.4 Baso % (Auto) 0.4 Absolute Neuts (auto) 7.8 H Absolute Lymphs (auto) 1.14 Nucleated RBC % 0 Ethyl Alcohol < 10.1 Discharge Plan Triage Chief Complaint: Male Pain/Injury Other Complaint: Suicidal ED Provider: Saman Muniz Dx/Rx/DC Orders Prescriptions: No Action omega-3 fatty acids 1,000 mg capsule 1,000 mg PO DAILY aspirin 81 mg tablet,chewable 81 mg PO DAILY Qty: 90 3RF nitroglycerin [Nitrostat] 0.4 mg tablet, sublingual 0.4 mg sublingual Q5-15M PRN (Reason: chest pain) Qty: 25 3RF Rx Instructions: do not exceed 3 doses per episode magnesium 200 mg tablet 200 mg PO QDAY multivitamin with folic acid 1 TABLET tablet 1 tab PO DAILY Patient Comments: Vitamins coenzyme [id number] 1 EACH capsule 1 ea PO DAILY Patient Comments: Supplement for cholestrol pregabalin 50 mg capsule 50 mg PO QHS PRN (Reason: neck pain) Qty: 90 0RF lisinopril 10 mg tablet 10 mg PO BID Qty: 180 3RF atorvastatin 80 mg tablet See Rx Instructions .ROUTE .COMPLEX Qty: 90 3RF Dose Instruction: TAKE 1 TABLET BY MOUTH EVERYDAY AT BEDTIME Rx Instructions: TAKE 1 TABLET BY MOUTH EVERYDAY AT BEDTIME metoprolol tartrate 50 mg tablet 50 mg PO BID Qty: 180 3RF clopidogrel 75 mg tablet See Rx Instructions .ROUTE .COMPLEX Qty: 90 3RF Dose Instruction: TAKE 1 TABLET BY MOUTH EVERY DAY Rx Instructions: TAKE 1 TABLET BY MOUTH EVERY DAY amlodipine 2.5 mg tablet 2.5 mg PO DAILY Qty: 90 0RF Primary Care Provider: Azam Haynes Print Language: Italian
[2025-01-14 16:29] LABS: Anion Gap 15 (5-15); BUN 15 mg/dL (4-19); BUN/Creat Ratio 15.2 RATIO (10-20); Calcium,Total 9.4 mg/dL (7.6-11.0); Carbon Dioxide 20.0 mmol/L (21.0-32.0); Chloride 98 mmol/L (98-108); Glucose 122 mg/dL (70-99); Potassium 4.1 mmol/L (3.3-5.1)
[2025-01-14 16:30] LABS: Mucous, Urine 0 SEEN /hpf (<or=2+)
--- NOTE | 2025-01-14 16:45 | PCM.PRE.AN2 ---
ASA Classification* ASA Classification ASA Classification: 2 and E Assessment & Plan Anesthesia* Anesthesia Assessment Anesthesia Assessment: Discussed sedation and/or anesthesia options, risks, benefits, and alternatives with patient/parents/legal guardian/POA. Questions invited. The patient/parents/legal guardian/POA seems to understand and agrees to proceed with anesthesia plan. Reviewed the physical assessment, medical history, allergy history and patient home medications list prior to surgery/procedure/anesthetic and documented any changes. Performed airway and anesthesia risk assessments. Anesthesia Type Anesthesia Type: General Anesthesia Focused Assessment* Temperature: 98.3 F Pulse Rate: 88 Blood Pressure: 138/70 Respiratory Rate: 16 Pulse Ox: 98 Airway Assessment Mouth opens: >3 cm Mallampati Score: II Labs Anesthesia Preop lab: CBC WBC 10.0 K/mm3 (4.4-11.0) 01/14/25 15:30 01/14/25 RBC 5.11 M/mm3 (4.6-6.2) 01/14/25 15:30 01/14/25 Hgb 15.5 g/dL (13.0-16.5) 01/14/25 15:30 01/14/25 Hct 45.5 % (40-54) 01/14/25 15:30 01/14/25 Plt Count 262 K/mm3 (150-450) 01/14/25 15:30 01/14/25 CHEMISTRY Potassium 4.1 mmol/L (3.3-5.1) 01/14/25 15:30 01/14/25 Sodium 133 mmol/L (133-145) 01/14/25 15:30 01/14/25 Phosphorus 3.4 mg/dL (2.5-4.9) 02/08/14 11:39 02/08/14 BUN 15 mg/dL (4-19) 01/14/25 15:30 01/14/25 Creatinine 0.96 mg/dL (0.70-1.20) 01/14/25 15:30 01/14/25 Glucose 122 mg/dL (70-99) H 01/14/25 15:30 01/14/25 TSH 2.43 uIU/mL (0.358-3.74) 07/11/23 09:52 07/11/23 COAG PT 13.3 SECONDS (11.7-14.9) 11/14/21 09:17 11/14/21 Pre-Assessment Diagnosis/Proposed Procedure Planned Operative Procedure(s): turp Anesthesia History Anesthesia History - property disposal officer: Anesthesia History - property disposal officer Hx Hospitalization No 10/02/23 13:34 Any Problems With Anesthesia Cholinesterase deficiency You/Your Family Experience No 10/02/23 13:34 fever (hyperthermia) with Relationship Recent Exposure to Contagious No 10/02/23 13:34 Disease Does patient have nerve stimulator Patient instructed to have device shut off --Does patient have Pacemaker or ICD? When Was Last Pacemaker Check QUESTION #4 FULL TEXT: You/Your Family Experience fever (hyperthermia) with Anesthesia Last Oral Intake Last Oral intake: Last Oral Intake NPO since Meds taken in AM with sips of water? Meds patient instructed to take am of surgery PONV PONV - property disposal officer: PONV - property disposal officer Female HX of Motion Sickness HX of N/V After Surgery Non-Smoker Duration of Surgery greater than 60 minutes Number of Risk Factors PONV Score Height & Weight Height & Weight: Anesthesia: Height & Weight Height 5 ft 11 in 01/14/25 14:04 Respiratory Assessment Respiratory Assessment - property disposal officer: Respiratory Tract Infection Hx - property disposal officer Hx Respiratory Tract Infection No 10/02/23 13:34 STOP Sleep Apnea STOP Sleep Apnea - property disposal officer: STOP Sleep Apnea - property disposal officer Hx Hypertension Yes 10/02/23 13:34 Hx Sleep Apnea No 10/02/23 13:34 CPAP No 10/02/23 13:34 BIPAP No 10/02/23 13:34 Do you snore loudly (louder than talking or can be heard Do you often feel tired/ fatigued/ sleepy during daytime? Has anyone observed you stop breathing during sleep? STOP Results QUESTION #5 FULL TEXT : Do you snore loudly (louder than talking or can be heard through closed doors)? 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 Specify any problems Hx of Preganancy in last 3 Months Nurse Filling Out Transfusion & Questions: Date: Time: Patient unable to answer at this time (ie. confused, unrespo /Reproduction History /Reproductive History - property disposal officer: /Reproductive Hx- property disposal officer Hx Now Gestational Age (in weeks): EDC: Hx Hx Para Hx Section SAB PFSH Medical History Osteoarthritis of left knee Right shoulder strain Scabies Thyroid goiter Back pain due to injury Family history of colon cancer Seborrheic keratoses Cervical disc disease Cervical cord compression with myelopathy Painful neck Swallowing problem Chronic back pain Nonrheumatic mitral (valve) prolapse Essential (primary) hypertension Back pain Obstructive sleep apnea GERD (gastroesophageal reflux disease) Atherosclerosis of coronary artery of [place] heart without angina pectoris Hyperlipidemia Home Medications ?Medication ?Instructions ?Recorded ?Last Taken ?Type coenzyme [id number] 100 mg-20 1 ea PO DAILY 03/25/13 07/03/20 History mg capsule multivitamin with folic acid 400 1 tab PO DAILY 03/25/13 07/03/20 History mcg tablet omega-3 fatty acids 1,000 mg 1,000 mg PO DAILY 08/20/18 07/03/20 History capsule aspirin 81 mg chewable tablet 81 mg PO DAILY #90 tabs 08/15/20 11/19/21 Rx nitroglycerin 0.4 mg sublingual 0.4 mg sublingual Q5-15M PRN chest 07/04/23 Unknown Rx tablet (Nitrostat) pain #25 tabs magnesium 200 mg tablet 200 mg PO QDAY 01/13/24 Unknown History pregabalin 50 mg capsule 50 mg PO QHS PRN neck pain #90 caps 02/05/24 Unknown Rx lisinopril 10 mg tablet 10 mg PO BID #180 tabs 06/02/24 Unknown Rx atorvastatin 80 mg tablet See Rx Instructions .Route 07/26/24 Unknown Rx .COMPLEX #90 tabs metoprolol tartrate 50 mg tablet 50 mg PO BID #180 tabs 07/26/24 Unknown Rx clopidogrel 75 mg tablet See Rx Instructions .Route 09/22/24 Unknown Rx .COMPLEX #90 tabs amlodipine 2.5 mg tablet 2.5 mg PO DAILY #90 tabs 10/18/24 Unknown Rx Allergy/AdvReac Type Severity Reaction Status Date / Time niacin (From [place]ias[place] Allergy Extreme Verified 01/14/25 14:04 Extended-Release) Itching cyclobenzaprine AdvReac Unknown Heart Verified 01/14/25 14:04 feels like wants to stop Family History Father CAD (coronary artery disease) Diabetes Heart disease Myocardial infarction Hypertension Mother Heart disease Diabetes CVA (cerebral vascular accident) Sister Breast cancer Colon cancer Brother Colon cancer Surgical History History of orthopedic surgery History of facial surgery History of shoulder surgery H/O right knee surgery History of left heart catheterization (11/19/21) History of coronary artery stent placement (05/16/10) Social History household members: spouse housing: house current occupational status: retired Smoking Status: Former smoker how long ago did patient quit smokin alcohol intake: former substance use type: does not use what type of physical activity do you participate in: walking and bicycling frequency: daily seatbelt use: always do you feel safe at home: Yes Review of Systems (Anesthesia) ROS Narrative System reviewed and no additional complaints, except as documented.
[2025-01-14] MEDS: Lactated Ringers 1,000 ML 15 ML IV (16:46)
--- NOTE | 2025-01-14 16:50 | HP.PCM_ITS ---
HPI - General General Date of Service: 01/14/25 HPI Narrative LYNN SHEPARD, is a 79 M who presents to the ER with retention of urine he is got a Lin catheter plain having severe pain from the Lin catheter and the sides and the desires to have something done he has been off Plavix for 3 days I discussed with him the risk of bleeding he wants to have procedure done so he can urinate he has failed a voiding trial already so organ to proceed with a TURP today. [facility] Medical History Osteoarthritis of left knee Right shoulder strain Scabies Thyroid goiter Back pain due to injury Family history of colon cancer Seborrheic keratoses Cervical disc disease Cervical cord compression with myelopathy Painful neck Swallowing problem Chronic back pain Nonrheumatic mitral (valve) prolapse Essential (primary) hypertension Back pain Obstructive sleep apnea GERD (gastroesophageal reflux disease) Atherosclerosis of coronary artery of [place] heart without angina pectoris Hyperlipidemia Home Medications ?Medication ?Instructions ?Recorded ?Last Taken ?Type coenzyme [id number] 100 mg-20 1 ea PO DAILY 03/2507/03/20 History mg capsule multivitamin with folic acid 400 1 tab PO DAILY 07/03/20 History mcg tablet omega-3 fatty acids 1,000 mg 1,000 mg PO DAILY 9 07/03/20 History capsule aspirin 81 mg chewable tablet 81 mg PO DAILY #90 tabs 08/15/20 11/19/21 Rx nitroglycerin 0.4 mg sublingual 0.4 mg sublingual Q5-1 5M PRN chest 07/04/23 Unknown Rx tablet (Nitrostat) pain #25 tabs magnesium 200 mg tablet 200 mg PO QDAY 01/13/24 Unkn own History pregabalin 50 mg capsule 50 mg PO QHS PRN neck pain # 90 caps 02/05/24 Unknown Rx lisinopril 10 mg tablet 10 mg PO BID #180 tabs 06/02 Unknown Rx atorvastatin 80 mg tablet See Rx Instructions .Route 0 07/26/24 Unknown Rx .COMPLEX #90 tabs metoprolol tartrate 50 mg tablet 50 mg PO BID #180 tab s 07/26/24 Unknown Rx clopidogrel 75 mg tablet See Rx Instructions .Route 0 09/22/24 Unknown Rx .COMPLEX #90 tabs amlodipine 2.5 mg tablet 2.5 mg PO DAILY #90 tabs Unknown Rx Allergy/AdvReac Type Severity Reaction Status Date / Time niacin (From [place] Allergy Extreme Verified 01/14/25 14:04 Extended-Release) Itching cyclobenzaprine AdvReac Unknown Heart Verified 01/14/25 14:04 feels like wants to stop Family History Father CAD (coronary artery disease) Diabetes Heart disease Myocardial infarction Hypertension Mother Heart disease Diabetes CVA (cerebral vascular accident) Sister Breast cancer Colon cancer Brother Colon cancer Surgical History History of orthopedic surgery History of facial surgery History of shoulder surgery H/O right knee surgery History of left heart catheterization (11/19/21) History of coronary artery stent placement (05/16/10) Social History household members: spouse housing: house current occupational status: retired Smoking Status: Former smoker how long ago did patient quit smokin alcohol intake: former substance use type: does not use what type of physical activity do you participate in: walking and bicycling frequency: daily seatbelt use: always do you feel safe at home: Yes Vital Signs Vital Signs Vital Signs: 01/14/25 14:04 01/14/25 15:33 01/14/25 16:00 Temperature 98.4 F Temperature Source Temporal Pulse Rate 68 69 88 Respiratory Rate 18 16 16 Blood Pressure 165/86 H 155/70 H 138/70 H Blood Pressure Mean 112 98 92 Pulse Ox 98 100 98 Oxygen Delivery Method Room Air 01/14/25 16:35 01/14/25 16:47 Temperature 98.3 F 98.3 F Temperature Source Pulse Rate 88 88 Respiratory Rate 16 16 Blood Pressure 138/70 H 138/70 H Blood Pressure Mean 92 Pulse Ox 98 98 Oxygen Delivery Method Results Lab / Micro Data 01/14/25 15:30 01/14/25 15:30 Labs: Laboratory Results - last 24 hr 01/14/25 15:30: WBC 10.0, RBC 5.11, Hgb 15.5, Hct 45.5, MCV 89.0, MCH 30.3, MCHC 34.1, RDW Std Deviation 41.6, RDW Coeff of [place] 12.6, Plt Count 262, MPV 9.9, Immature Gran % (Auto) 0.600, Neut % (Auto) 78.4 H, Lymph % (Auto) 11.4 L, [place] % (Auto) 8.8, Eos % (Auto) 0.4, Baso % (Auto) 0.4, Absolute Neuts (auto) 7.8 H, Absolute Lymphs (auto) 1.14, Nucleated RBC % 0, Sodium 133, Potassium 4.1, Chloride 98, Carbon Dioxide 20.0 L, Anion Gap 15, BUN 15, Creatinine 0.96, Est GFR (MDRD) Non-Af 82, BUN/Creatinine Ratio 15.2, Glucose 122 H, Calcium 9.4, Ethyl Alcohol < 10.1
[2025-01-14] MEDS: Lactated Ringers 1,000 ML 1000 ML IV (16:53)
--- NOTE | 2025-01-14 17:00 | CM.ED ---
Social Work Psychiatric Assessment Reason for consult: suicidal Informant(s): patient, medical records, patient's (Christa) Chief Complaint: patient presented to [facility] ED today, 01/14/25, with patient's , Christa, due to suicidal statements being made by patient at home. Per patient in triage, patient stated being in pain due to patient's prostate surgery not being until 02/02/25. Patient admitted in triage that patient was making threats to kill self and patient stated, suicide is a last resort if no one can fix this. During SW assessment, patient stated only wanting to use oxycodone as a last resort. Patient stated taking the firearm into the [facility] to get attention because patient felt upset and unwanted by everyone. Patient stated feeling as if patient's pain was not being taken seriously and patient wanted to be taken seriously. Patient stated, life isn't worth it when you're in this much pain. Patient expressed not sleeping well due to pain and patient stated having a good appetite at times. Patient denied hallucinations or delusions, but endorsed feelings of hopelessness and helplessness. Patient stated these feelings, as well as depression only being due to patient's pain. Patient stated family history of a great uncle dying by suicide. Patient stated the firearm was unloaded, though stated having bullets with patient in the case. Patient stated taking the firearm to the [facility] was an impulsive decision and specifically stated just hurting so bad that I didn't know where to turn next. In a private conversation with Christa, patient reportedly took a gun today to the [facility] and was making statements such as, I am making peace with God before I shoot myself and I don't want you (Christa) to see me do it. Patient reportedly also made comments about having to just do it today if patient returned home from [facility] ED without receiving medical relief. Christa stated patient has an oxycodone prescription that patient refuses to use due to belief that patient would become addicted to them. Christa stated patient has made suicidal statements and threats in the past, but has never had attempts to Christa's knowledge. Christa stated patient has 4-5 firearms total and Christa expressed fear that patient would shoot self if sent home from the ED without medical relief. Prior to patient's assessment with this SW, SW was told by Cristy SNOW that patient reportedly stated to Silvina Guan that patient wanted to run in front of a train. Patient reportedly told Cristy SNOW that patient wanted to run in front of traffic to make it look like an accident. Marital/Social History/Sexual Orientation/Gender Identity: Patient is a 79 year old male. Patient has been to Christa for 46 years and having two children, a daughter and a son. Living Situation: patient lives with patient's , Christa. Support/Resources: patient identifies Christa as patient's largest support. Patient stated not knowing if Christa could continue to be a support due to Christa lying to patient today. Reportedly, Christa told patient that patient's urologist was going to meet patient here at [facility] ED and that's the only reason Christa got me in the car. History: none Education and Employment History: patient states being a high school graduate. 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 Mental Health Treatment/History: none Triggers/Stressors to mental health: patient states the unbearable pain to be a stressor, as well as not getting along well with Christa. Coping Skills: patient states going on bike rides used to be a good coping skill for patient, but patient reports worrying so much about Christa falling that patient does not go on bike rides now. History of Abuse (physical/sexual/verbal/emotional): none Substance Abuse Current/Historical: none Risk to Self/Others: ? Suicidal (thought/plan/intent/attempt): see C-SSRS for details. ? Access to Lethal Means: patient has access to an unknown amount of firearms, knives, and medications. Patient stated family heirloom guns are locked in a safe that patient reports losing the killian to. Patient stated having access to a few firearms outside of the safe. ? Homicidal (thought/plan/intent/attempt): none ? History of Violence (self/others/objects): patient states having loud arguments with Christa at times and throwing things out of anger. Patient clarified that items never get thrown toward Christa. Mental Status Exam: ??? Orientation: patient oriented to time, place, and person. ??? Memory: good Appearance/General Behavior: clean/appropriate Mood/Affect: appropriate, depressed due to pain Communication Pattern: responds to questions Thought Process: appropriate General Intellectual Functioning: average Judgment: poor Insight: fair [place] SS[place] SUICIDAL IDEATION Ask questions 1 and 2. If both are negative, proceed to ?Suicidal Behavior? section. If the answer question 2 is yes, ask questions 3, 4, 5.? If the answer to question 1 and/or 2 is ?yes?, complete ?Intensity of Ideation? section below. 1. Wish to be ? Subject endorses thoughts about a wish to be or not alive anymore or wish to fall asleep and not wake up. Have you wished you were or wished you could go to sleep and not wake up? Lifetime: Time He/She [place] Most Suicidal: ?yes Past 1 month: yes Please Describe if yes: ?patient stated general thoughts of wishing patient could go to sleep and not wake up. 2. Non-Specific Active Suicidal Thoughts General, non-specific thoughts of wanting to end one?s life/commit suicide (e.g., ?I?ve thought about killing myself?) without thoughts of ways to kills oneself/associated methods, intent, or plan during the assessment period.? Have you actually had any thoughts of killing yourself? Lifetime: Time He/She [place] Most Suicidal: ?yes Past 1 month: yes Please Describe if yes: patient stated having general thoughts of killing self, but I wouldn't have actually done it today. 3. Active Suicidal Ideation with Any Methods (Not Plan) without Intent to Act Subject endorses thoughts of suicide and has thought of at least one method during the assessment period.? This is different than a specific plan with time, place, or method details worked out (e.g., thought of method to kills self but not a specific plan).? Includes person who would say ?I thought about thanking an overdose, but I never made a specific plan as to when, where or how. I would actually do it, and I would never go through with it.? Have you been thinking about how you might do this? Lifetime: Time He/She [place] Most Suicidal: ?yes Past 1 month:? yes Please Describe if yes: patient states only ever thinking of dying by suicide via shooting self today. 4. Active Suicidal Ideation with Some Intent to Act, without Specific Plan Active suicidal thoughts of kills oneself fand subject reports having some intent to act on such thoughts, as opposed to ?I have the thoughts but I definitely will not do anything about them.? Have you had these thoughts and had some intention of acting on them? Lifetime: Time He/She Bet[place] Most Suicidal: no Past 1 month: no Please Describe if yes: N/A 5. Active Suicidal Ideation with Specific Plan and Intent Thoughts of kills oneself with details of plan fully or partially worked out and subject has some intent to care it out. Have you started to work out or worked out the details of how to kill yourself? Do you intend to carry out this plan? Lifetime: Time He/She [place] Most Suicidal: no Past 1 month: ?no Please Describe if yes: N/A INTENSITY OF IDEATION The following feature should be rated with respect to the most sever type of ideation (i.e., 1-5 from above, with 1 being the least severe and 5 being the most severe). Ask about time he/she/they were feeling the most suicidal.? Lifetime - Most Severe Ideation: Type # (1-5): 3 Description: shooting self Recent - Most Severe Ideation: Type # (1-5): 3 Description: shooting self Frequency How many times have you had these thoughts? Lifetime: (1) Less than once a week??? (2) Once a week?? (3)? 2-5 times in week??? (4) Daily or almost daily??? (5) Many times each day Recent, Past 1 month:? (1) Less than once a week??? (2) Once a week?? (3)? 2-5 times in week??? (4) Daily or almost daily??? (5) Many times each day Duration When you have the thoughts, how long do they last? Lifetime: (1) Fleeting - few seconds or minutes? (2) Less than 1 hour/some of the time? (3) 1-4 hours/a lot of time? 4) 4-8 hours/most of day? (5) More than 8 hours/persistent or continuous Recent, Past 1 month:? (1) Fleeting - few seconds or minutes? (2) Less than 1 hour/some of the time? (3) 1-4 hours/a lot of time? 4) 4-8 hours/most of day? (5) More than 8 hours/persistent or continuous Controllability Could/can you stop thinking about killing yourself or wanting to if you want to? Lifetime:? (1) Easily able to control thoughts?? (2) Can control thoughts with little difficulty??? (3) Can control thoughts with some difficulty??? 4) Can control thoughts with a lot of difficulty? (5) Unable to control thoughts?? (0) Does not attempt to control thoughts Recent, Past 1 month: (1) Easily able to control thoughts?? (2) Can control thoughts with little difficulty??? (3) Can control thoughts with some difficulty??? 4) Can control thoughts with a lot of difficulty? (5) Unable to control thoughts?? (0) Does not attempt to control thoughts Deterrents Are there things - anyone or anything (e.g., family, scientology, pain of ) - that stopped you from wanting to or acting on thoughts of committing suicide? Lifetime:? (1) Deterrents definitely stopped you from attempting suicide? (2) Deterrents probably stopped you?? (3) Uncertain that deterrents stopped you? (4) Deterrents most likely did not stop you? (5) Deterrents definitely did not stop you?? 0) Does not apply??? Recent:??? (1) Deterrents definitely stopped you from attempting suicide? (2) Deterrents probably stopped you?? (3) Uncertain that deterrents stopped you? (4) Deterrents most likely did not stop you? (5) Deterrents definitely did not stop you?? 0) Does not apply??? Reasons for Ideation What sort of reasons did you have for thinking about wanting to or killing yourself? Was it to end the pain or stop the way you were feeling (in other words you couldn?t go on living with this pain or how you were feeling) or was it to get attention, revenge or a reaction from others? Or both? Lifetime: (1) Completely to get attention, revenge or a reaction from?? (2) Mostly to get attention, revenge or a reaction from others? (3) Equally to get attention, revenge or a reaction from others? and to end/stop the pain?? ( 4) Mostly to end or stop the pain (you couldn?t go on living with the pain or how you were feeling)??? (5) Completely to end or stop the pain (you couldn?t go on living with the pain or? how you were feeling)??? (0)? Does not apply? Recent: (1) Completely to get attention, revenge or a reaction from?? (2) Mostly to get attention, revenge or a reaction from others? (3) Equally to get attention, revenge or a reaction from others? and to end/stop the pain??? (4) Mostly to end or stop the pain (you couldn?t go on living with the pain or how you were feeling)?? (5) Completely to end or stop the pain (you couldn?t go on living with the pain or? how you were feeling)?? (0)? Does not apply? SUICIDAL BEHAVIOR Actual Attempt: A potentially self-injurious act committed with at least some wish to , as a result of act.? Behavior was in part thought of as method to kill oneself.? Intent does not have to be 100%.? If there is any intent/desire to associated with the act, then it can be considered an actual suicide attempt.? There does not have to be any injury of harm, just the potential for injury or harm.? If person pulls trigger while gun is in mouth, but gun is broken so no injury results, this is considered an attempt.? Inferring intent:? Even if an individual denies intent/wish to , it may be inferred clinically from the behavior or circumstances.? For example, a highly lethal act that is clearly not an accident so no other intent but suicide can be inferred (e.g. gunshot to head, jumping from window of a high floor/story).? Also, if someone denies intent to , but they thought that what they did could be lethal, intent may be inferred.? Have you made a suicide attempt? Have you done anything to harm yourself? Have you done anything dangerous where you could have ? What did you do? Did you as a way to end your life? Did you want to (even a little) when you ? Were you trying to end your life when you ? Or did you think it was possible you could have from ? Or did you do it purely for other reasons/without ANY intention of killing yourself like to relieve stress, feel better, get sympathy, or get something else to happen)? (Self -Injurious Behavior without suicidal intent) Lifetime: no Past 3 months: no If yes, describe: N/A Total # of Attempts in His/Her Lifetime: N/A Total # of attempts in Past 3 months: N/A Has person engaged in Non-Suicidal Self-Injurious Behavior? Lifetime: no Past 3 months: no Interrupted Attempt: When the person is interrupted (by an outside circumstance) from starting the potentially self-injurious act (if not for that, actual attempt would have occurred).? Overdose: Person has pills in hand but is stopped from ingesting. Once they ingest any pills, this becomes an attempt rather than an interrupted attempt. Shooting: Person has gun pointed toward self, gun is taken away by someone else, or is somehow prevented from pulling trigger. Once they pull the trigger, even if the gun fails to fire, it is an attempt. Jumping: Person is poised to jump, is grabbed and taken down from ledge.? Hanging: Person has noose around neck but has not yet started to hang self -is stopped from doing so.? Has there been a time when you started to do something to end your life but someone or something stopped you before you did anything? Lifetime: yes Past 3 months: yes If yes, describe: ?patient stated today's attempt with a firearm was interrupted by patient's entering the [facility]. Patient stated, I know I wouldn't have actually done it. The gun was unloaded. Total # of interrupted attempts in His/Her Lifetime: 1 Total # of interrupted attempts in Past 3 months: 1 Aborted or Self-Interrupted Attempt:? When person begins to take steps toward making a suicide attempt, but stops themselves before they have actually engaged in any self-destructive behavior. Examples are like interrupted attempts, except that the individual stops him/herself, instead of being stopped by something else. Has there been a time when you started to do something to try to end your life, but you stopped yourself before you did anything? Lifetime: no Past 3 months: no If yes, describe: N/A Total # of aborted or self-interrupted attempts in His/Her Lifetime: N/A Total # of aborted or self-interrupted attempts in Past 3 months: N/A Preparatory Acts or Behavior:? Acts or preparation towards imminently making a suicide attempt. This can include anything beyond a verbalization or thought, such as assembling a specific method (e.g., buying pills, purchasing a gun) or preparing for one?s by suicide (e.g., giving things away, writing a suicide note). Have you taken any steps towards making a suicide attempt or preparing to kill yourself (such as collecting pills, getting a gun, giving valuables away or writing a suicide note)? Lifetime: no Past 3 months: no If yes, describe: (Patient already had the firearm purchased, though patient did go retrieve the firearm when patient had the impulsive thought). Total # of preparatory acts in His/Her Lifetime: N/A Total # of preparatory acts in Past 3 months: N/A Lethality/Medical Damage:??? 0. No physical damage or very minor physical damage (e.g., surface scratches). 1. Minor physical damage (e.g., lethargic speech; first-degree liz; mild bleeding; sprains). 2. Moderate physical damage; medical attention needed (e.g., conscious but sleepy, somewhat responsive; second-degree liz; bleeding of major vessel). 3. Moderately severe physical damage; medical hospitalization and likely intensive care required (e.g., comatose with reflexes intact; third-degree liz less than 20% of body; extensive blood loss but can recover; major fractures). 4. Severe physical damage; medical hospitalization with intensive care required (e.g., comatose without reflexes; third-degree liz over 20% of body; extensive blood loss with unstable vital signs; major damage to a vital area). 5. Most Recent attempt Date: Code: Most Lethal Attempt Date: Code: Initial/First Attempt Date: Code: Potential Lethality: Only Answer if Actual Lethality=0 Likely lethality of actual attempt if no medical damage (the following examples, while having no actual medical damage, had potential for very serious lethality: put gun in mouth and pulled the trigger but gun fails to fire so no medical damage; laying on train tracks with oncoming train but pulled away before run over). 0 = Behavior not likely to result in injury 1 = Behavior likely to result in injury but not likely to cause 2 = Behavior likely to result in despite available medical care Most Recent Attempt Code: Most Lethal Attempt Code: Initial/First Attempt Code: Assessment Summary: due to patient presenting to [facility] ED with intense and unbearable pain and after making suicidal statements, patient will benefit from further assessment following surgery. Patient's reported concerning statements about patient's reported statements while carrying a firearm to the [facility]. Due to patient reportedly making suicidal statements and threats in the past and due to patient's statements today in the ED toward HRO and RN, patient will need reassessed after surgery to determine plan. It is believed that patient could be making comments out of pain, but further assessment post-surgery should be completed due to lethality of means chosen. Spoke with doctor who is in agreement. Plan: pink slip due to lethality of means threatened today. Patient having surgery today to relieve pain. Patient to be reassessed in acute to determine final plan. Mayte Voss, HIDE TANNER, CAUSTIC CRESYLATE SHIFT SUPERINTENDENT
[2025-01-14 17:02] LABS: Color, Urine Yellow (Yellow); Glucose, Dipstick Normal (Normal); Ketone-Dipstick 50 mg/dl (Negative); Leukocyte Esterase-Dipstick 100 /ul (Negative); Nitrite-Dipstick Positive (Negative); Occult Blood-Urine 250 /ul (Negative); Protein-Dipstick 30 mg/dl (Negative); Specific Gravity, Urine 1.015 (1.002-1.030)
[2025-01-14] MEDS: fentaNYL 100 MCG/2 ML Ampul IV (17:06)
[2025-01-14 17:09] LABS: Urine Bilirubin Dipstick 3 mg/dL (Negative)
--- NOTE | 2025-01-14 17:10 | PROS_PTH ---
PATIENT: LYNN SHEPARD LOC: MS3 U#:[id number] AGE/SX: 79/M [place]OM: [facility] [place]: Dr. Spenser Winston MD : 1945 BED: 1 DIS: 01/16/2025 SPEC #: [id number] RECD: 01/15/25 00:24 STATUS: DANILO RENghia #: [id number] SYLWIA: 01/14/25 17:[address]: Spenser Winston DEPT: SURGICAL PATHOLOGY RECD BY: Samuel Stern ENTERED: 01/17/25 13:01 SP TYPE: TURP OTHR DR: Dr. Azam Haynes, DO Tissues: A - Prostate, NOS Procedures: Surgery Specimen Level IV HEADER OPERATION: Cysto, transurethral resection, prostate PRE-OP DIAGNOSIS: Benign prostatic hyperplasia, obstruction, urinary retention TISSUE SUBMITTED: A- Prostate tissue MICROSCOPIC DIAGNOSIS A. Prostate, transurethral resection: - Acute and chronic inflammation. MICROSCOPIC DESCRIPTION Slides are reviewed. GROSS DESCRIPTION A. Received in formalin labeled with the patient's name and date of . Designated as prostate tissue is a 14.5 gram, 5.7 x 5.0 x 1.6 cm aggregate of irregular, burns, rubbery cauterized tissue fragments. Entirely submitted in 8 cassettes. [place] 01/17/2025 CPT:78253
[2025-01-14] MEDS: Cefazolin 1 GM/5 ML Vial 2 GM IV (17:11)
[2025-01-14 17:16] LABS: Barbiturate Urine NEGATIVE (< 200 ng/mL); Benzodiazepine Urine NEGATIVE (< 200 ng/mL); PCP Urine NEGATIVE (< 25 ng/mL); THC Urine NEGATIVE (< 50 ng/mL)
[2025-01-14 17:47] LABS: Red Blood Cells-Urine 0-5 SEEN /hpf (0-5); Squamous Epithelial Cells - UA 0-5 SEEN /hpf (0-5)
--- NOTE | 2025-01-14 18:03 | PCM.OPRPT ---
Operative Report (Standard) Operative Information Date of Procedure: 01/14/25 Pre-Operative Diagnosis: BPH with retention of urine Post-Operative Diagnosis: The same Surgery/Procedure Performed: Transurethral section of prostate director of application development: No Type of Anesthesia: General RN Documented Start/Stop Times: Operation Date: 01/14/25 17:10 Case Time Into Pre-Op 01/14/25 16:45 Out of Pre-Op 01/14/25 16:51 Anesthesia Start 01/14/25 16:53 Into Room 01/14/25 16:53 Procedure Start 01/14/25 17:06 Procedure End 01/14/25 18:01 Anesthesia End 01/14/25 18:03 Out of Room 01/14/25 18:03 Procedure Start Time: 17:06 Procedure Stop Time: 18:04 Select all DRAINS/GRAFTS/IMPLANTS that apply: Drains Drain details: 22 [place] three-way Lin Estimated Blood Loss: Minimal Specimen collected: No Description of surgery: In the preoperative setting I discussed with the patient how the surgery would be done with expect afterwards. We discussed how a prostate resection is done and we discussed the risk of the surgery including, bleeding, infection, retrograde ejaculation, changes with ejaculation or intercourse,. We discussed the possibility that the resection of the prostate may not alleviate his urinary symptoms. We discussed the small risk of developing scar tissue along the urethral channel and strictures. We also discussed the chance of the prostate could grow back and he may need further surgery or treatment in the future for prostate problems. Patient was taken back to the operating room, timeout procedure was performed, he was identified and marked and placed on the operating room table. He underwent general anesthesia. He was placed in dorsolithotomy position. Penis and testicles were prepped and draped in usual sterile fashion. Went into the bladder using the visual obturator with a resectoscope. Once inside the bladder identified the right and left ureteral orifice. I then identified the prostate and the anatomy of the prostate. I marked out the area of the sphincter and the verumontanum was identified. I then proceeded with the prostate resection first resected the median lobe. And then resected the right lobe of the prostate. Then to resect the left lobe of the prostate. I then resected the apical tissue of the prostate. This was a complete resection of all obstructive tissue to improve voiding and relieve obstruction. I then made sure that there was no injury to the sphincter or the verumontanum was still intact. At the end of the resection all the chips were Ellik out of the bladder. I then identified the left and right ureteral orifice and these were confirmed to be in good position and effluxing and not injured. The resectoscope was removed, a 22 [place] catheter was placed into the bladder on continuous irrigation. And the urine was fairly light pink color and draining normally. He was taken back to the PACU in good condition. CPT 79776 Surgical Findings: Obstructive prostate resected Complications Complications: No Admit VTE Documentation VTE Present on Admission: No VTE Mechan Device Prophylaxis: SCD's VTE Pharm Prophylaxis ordered?: No
--- NOTE | 2025-01-14 18:12 | PCM.POST.ANE ---
Anesthesia: Postop Eval I Current Vital Signs Temperature: 97.1 F Pulse Rate: 86 Blood Pressure: 148/80 Respiratory Rate: 16 Pulse Ox: 94 Assessment Airway patent: Yes Spontaneous unlabored respirations: Yes nausea: No Vomiting: No Anesthesia Complication: No Fluid Hydration Crystalloid volume administer (ml): 1,000 Total IV fluid infused: 1,000 Progress Note Anesthesia document: Postop Eval 1 completed: Yes
--- NOTE | 2025-01-14 18:14 | POSTOPAN2_ITS ---
Anesthesia Postop Eval I Sum Postop Eval Completion status Anesthesia document: Postop Eval 1 completed: Yes Anesthesia Postop Eval I Summary Anesthesia Postop Eval I Summary: Anesthesia Postop Eval I: Assessment Summary Airway patent Yes 01/14/25 18:12 C D REACTOR [email or web address].[email or web address] Spontaneous unlabored Yes 01/14/25 18:12 C D REACTOR OPERATOR.CSIR respirations Mental status nausea No 01/14/25 18:12 C D REACTOR OPERATOR.CSIR Vomiting No 01/14/25 18:12 C D REACTOR OPERATOR.CSIR Anesthesia Postop Eval I: Fluid Summary Crystalloid volume administer 1,000 01/14/25 18:12 C D REACTOR OPERATOR.CSIR (ml) Colloids volume administered ( ml) Blood Product volume administered (ml) Total IV fluid infused 1,000 01/14/25 18:12 C D REACTOR OPERATOR.CSIR Anesthesia Postop Eval I: Summary Notes Anesthesia Complication No 01/14/25 18:12 C D REACTOR OPERATOR.CSIR Anesthesia Complication Comment: Post-operative progress note Anesthesia: Postop Eval II Evaluation Mental status: Awake Pain Level: 0 nausea: No Vomiting: No
--- NOTE | 2025-01-14 18:14 | PCM.POSTANE2 ---
Anesthesia Postop Eval I Sum Postop Eval Completion status Anesthesia document: Postop Eval 1 completed: Yes Anesthesia Postop Eval I Summary Anesthesia Postop Eval I Summary: Anesthesia Postop Eval I: Assessment Summary Airway patent Yes 01/14/25 18:12 [email or web address] Spontaneous unlabored Yes 01/14/25 18:12 [email or web address] respirations Mental status nausea No 01/14/25 18:12 [email or web address] Vomiting No 01/14/25 18:12 [email or web address] Anesthesia Postop Eval I: Fluid Summary Crystalloid volume administer 1,000 01/14/25 18:12 [email or web address] (ml) Colloids volume administered ( ml) Blood Product volume administered (ml) Total IV fluid infused 1,000 01/14/25 18:12 [email or web address] Anesthesia Postop Eval I: Summary Notes Anesthesia Complication No 01/14/25 18:12 [email or web address].[email or web address] Anesthesia Complication Comment: Post-operative progress note Anesthesia: Postop Eval II Evaluation Mental status: Awake Pain Level: 0 nausea: No Vomiting: No
[2025-01-14] MEDS: 0.9% Normal Saline (1000mL) 1,000 ML 125 ML IV (18:18)
--- OUTSIDE RECORDS SUMMARY | 2025-01-14 20:42 | XMS RPT_ITS | CCD ---
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 Gauri Vila Primary Care Provider [phone] Dr. Gauri Vila Attending Provider Dr. Gauri [...] Vila Referring Provider SEGUN Chang Attending Provider SEGUN Clark Attending Provider Dr. Gauri [...] Provider Jim GORMAN, Dr. Gonzalez Emergency Provider [phone] Nella BARRETO, Dr. Drake Linares Attending Provider Jim GORMAN, Dr. Gonzalez Referring Provider Dallas GORMAN, Dr. Gauri Villa Attending Provider [phone] Dallas GORMAN, Dr. Gauri Villa Referring Provider [phone] Carmen Tariq Attending Provider [phone] Carmen Tariq Referring Provider [phone] Dr. Gauri Vila DO Primary Care Provider [phone] Dallas GORMAN, Dr. Gauri Villa Referring Provider [phone] Dallas GORMAN, Dr. Gauri Villa Attending Provider [phone] Amara BARRETO, Dr. Medina Attending Provider [phone] Edwar Person MD Attending Provider Dr. Gauri Vila DO Primary Care Provider [phone] Dr. Gauri Vila DO Referring Provider [phone] Carmen Tariq Attending Provider [phone] Carmen Tariq Referring Provider [phone] Dr. Gauri Vila DO Primary Care Provider [phone] Dr. Gauri Vila DO Referring Provider [phone] Carmen Tariq Attending Provider [phone] Carmen Tariq Referring Provider [phone] Tish BARRETO, Dr. Spenser Elliott Attending Provider [phone] Tish BARRETO, Dr. Spenser Elliott Referring Provider Edwar Person Attending Unavailable Gauri Vila Primary Care Unavailable Gauri Vila Referring Unavailable Gauri Vila Primary Care Unavailable Brown, Gauri R Referring Unavailable Carmen Tariq Attending Unavail able Brown, Gauri R Attending Unavailable Brown, Gauri R Primary Care Unavailable Brown, Gauri R Referring Unavailable Brown, Gauri R Referring Unavailable Brown, Gauri R Primary Care Unavailable Edwar Pesron Attending Unavailable Edwar Person Attending Unavailable Brown, Gauri R Referring Unavailable Brown, Gauri R Primary Care Unavailable Brown, Gauri R Attending Unavailable Brown, Gauri R Primary Care Unavailable Brown, Gauri R Referring Unavailable Brown, Gauri R Primary Care Unavailable Brown, Gauri R Referring Unavailable Carmen Tariq Attending Unavail able Brown, Gauri R Attending Unavailable Brown, Gauri R Primary Care Unavailable Brown, Gauri R Referring Unavailable Adam Maloney Attending Unavailable Brown, Gauri R Primary Care Unavailable Brown, Gauri R Primary Care Unavailable Carmen Tariq Attending Unavail able Carmen Tariq Referring Unavail able Brown, Gauri R Primary Care Unavailable Keshawn Davidson Attending Unavailable Brown, Gauri R Primary Care Unavailable Carmen Tariq Referring Unavail able Carmen Tariq Attending Unavail able Brown, Gauri R Primary Care Unavailable TishSpenser Referring Unavailable TishSpenser Attending Unavailable Brown, Guari R Primary Care Unavailable Carmen Tariq Referring Unavail able Carmen Tariq Attending Unavail able Brown, Gauri R Attending Unavailable Brown, Gauri R Referring Unavailable Brown, Gauri R Primary Care Unavailable Brown, Gauri R Primary Care Unavailable Lisa Fernandez Attending Unavailable Brown, Gauri R Primary Care Unavailable TishSpenserYang Referring Unavailable TishSpenser Attending Unavailable Brown, Gauri R Primary Care Unavailable Carmen Tariq Referring Unavail able Carmen Tariq Attending Unavail able Brown, Gauri R Attending Unavailable Brown, Gauri R Referring Unavailable Brown, Gauri R Primary Care Unavailable Brown, Gauri R Referring Unavailable Brown, Gauri R Primary Care Unavailable Edwar Person Attending Unavailable Dr. Keshawn Davidson DO Emergency Provider [phone] Dr. Saman Muniz MD Emergency Provider Allergies Allergy Classification Reported Allergen(s) Allergy Type Date of Onset Reaction(s) Facility Niacin (2 sources) Niacin Drug Allergy 04-15-20 16 Itching [facility] (8 sources) niacin drug allergy 12-23-[address] [facility] ([place], [place] Work Phone: (20 sources) niacin; Translations: [NIACIN] Propensity to adverse reactions to drug 04-15-20 16 Itching [facility] Work Phone: (1 source) Niacin Drug Allergy 06-27-19 15 causes extreme itching and flushing [facility] Work Phone: (20 sources) cyclobenzaprine Drug Allergy 08-15-19 22 Heart feels like wants to stop [facility] Comment on above: Generic only, can ta ke Name Brand (1 source) cyclobenzaprine Drug Allergy 01-13-20 [facility] Repository (1 source) Niacin Drug Allergy 01-13-20 [facility] Medications Current Medications Medication Drug Class(es) [...] TABS One tablet by mouth daily ASPIRIN [id number] Pasha Herrmann MD Start: 01-02-2012 take 1 tablet by devan th once daily ASPIRIN 81 MG TABS One tablet by mouth daily ASPIRIN [id number] Pasha Herrmann MD Start: 01-02-2012 ASPIRIN 81 81 MG TBEC 1 tablet once daily ASPIRIN [id number] Kassidy Will Start: 10-18-2010 take 1 tablet by devan th once daily ECOTRIN 325 MG TBEC One tablet by mouth daily ASPIRIN [id number] Luz Elena Nelson Start: 10-18-2010 take 1 tablet by devan th once daily ECOTRIN 325 MG TBEC One tablet by mouth daily ASPIRIN [id number] Luz Elena M Nelson fish oil (1 source) take 1 capsule by mo uth once daily fish oil-omega-3 fatty acids 300-1,000 [...] 1 capsule by mouth once daily Coenzyme M17-N-Cbwgjozio 1 EACH capsule Active 1 NMA PO [...] tablet Discontinued 0 .ROUTE .COMPLEX 90 3 July 04, 2020 4:32pm August 15, 2020 3:47pm TAKE 1 TABLET BY MOUTH EVERY DAY Magnesium (11 sources) Start: 01-13-2024 take 1 tablet by [...] Multivitamin With Folic Acid 1 TABLET tablet (11 sources) Start: 03-25-2013 take 1 tablet by [...] 5 min up to 3 X NITROGLYCERIN [id number] Stephen Grant HAIR SAMPLE MATCHER Zeeland-3 Fatty Acids (13 sources) Start: 08-20-2018 take 1000 mg by mout h once daily Zeeland-3 Fatty Acids Active 1000 MG PO DAILY August 20, 2018 3:49pm Start: 08-20-2018 take 1000 mg by mouth once sourav ly Zeeland-3 Fatty Acids Active 1000 MG PO DAILY August 19, 2018 11:00pm Start: 08-20-2018 take 1000 mg by mouth once sourav ly Zeeland-3 Fatty Acids Active 1000 MG PO DAILY August 20, 2018 12:00am Zeeland-3 Fatty Acids 1,000 mg capsule (11 sources) Start: 08-20-2018 take 1 capsule by mouth once daily Zeeland-3 Fatty Acids 1,000 mg capsule Active 1000 [...] mg / clavulanate 125 mg oral tablet (15 sources) Penicillin-class Antibacterial Start: 04-24-2023 End: 04-24-2023 Amoxicillin-Pot Clavulanate 875-125 mg tablet Discontinued 1 {tbl} PO Q12H 20 April 24, 2023 1:00am May 03, 2023 [...] LET 1 tablet once daily CHOLECALCIFEROL TABS [id number] Kassidy Will Start: 08-20-2018 End: 08-14-2021 Cholecalciferol [...] One tablet by mouth daily COENZYME Q10 [id number] Rosanne Patel RN COENZYME Q10 (1 source) Start: 06-27-2014 CO Q 10 100 MG CAPS 1 capsule daily COENZYME Q10 [id number] Kary Bhardwaj colchicine 0.6 mg oral tablet (20 sources) Start: 03-01-2015 End: 10-24-2015 take 1 tablet by mouth twice daily COLCHICINE 0.6 MG TABS One tablet by mouth twice daily COLCHICINE 58502096328 Rosanne Patel RN cyclobenzaprine hydrochloride 7.5 mg oral tablet (20 sources) Muscle Relaxant Start: 05-20-2018 End: 06-04-2018 take 1 tablet by mouth three times daily as needed for pain Cyclobenzaprine 7.5 mg tablet Discontinued 7.5 mg PO THREE TIMES A DAY 30 May 20, 2018 1:00am June 04, 2018 11:04am Dorsalgia, unspecified as needed for back pain dexamethasone 6 mg oral tablet (11 sources) Corticosteroid Start: 01-13-2024 End: 04-14-2024 take 1 tablet by mouth once daily Dexamethasone 6 mg tablet Discontinued 6 mg PO DAILY 5 January 13, 2024 12:00am April 14, 2024 5:36pm diazePAM 5 mg oral tablet (20 sources) Benzodiazepine Start: 07-08-2019 End: 06-05-2020 take 1 tablet by mouth twice daily as needed for muscle spasms Diazepam 5 mg tablet Discontinued 5 mg PO TWICE A DAY as needed for muscle spasm 20 July 08, 2019 1:00am June 05, 2020 9:50am fexofenadine hydrochloride 180 mg oral tablet (10 sources) Histamine-1 Receptor Antagonist Start: 07-21-2024 End: [...] TABS One tablet by mouth daily FINASTERIDE [id number] Adam Maloney MD fluticasone propionate 0.05 mg/actuat [...] nostril hydrOXYzine hydrochloride 25 mg oral tablet (17 sources) Antihistamine Start: 04-10-2022 End: 05-27-2022 take 1 tablet by mouth three times daily as needed Hydroxyzine Hcl 25 mg tablet Discontinued 25 mg PO THREE TIMES A DAY as needed for itching 30 April 10, 2022 1:00am May 27, 2022 4:12pm krill oil (20 sources) Start: 05-06-2017 End: 03-29-2018 Chtwd-Mi-4-Dha-Epa- Phospho-Ast (Krill Oil) 1,542-722-97-50 mg capsule Discontinued 1 CAP PO daily May 06, 2017 4:51pm March 29, 2018 2:55pm Start: 05-06-2017 End: 03-29-2018 take 1 capsule by mouth once daily Lyspw-Nc-3-Foi-Rkq-Iebchzm-Ast (Krill Oi l) 1,301-052-89-50 mg capsule Discontinued 1 NMA PO daily May 06, 2017 1:00am March 29, 2018 2:55pm Start: 05-06-2017 End: 03-29-2018 Qtpci-Lg-5-Vlf-Ofz-Ckxgfuw-A st (Krill Oil) 1,610-654-31-50 mg capsule Discontinued 1 CAP PO daily May 06, 2017 12:00am March 29, 2018 1:55pm Start: 05-06-2017 End: 03-29-2018 Uzeti-Ec-7-Rxa-Gep-Rsggagr-A st (Krill Oil) 1,037-119-79-50 mg capsule Discontinued 1 CAP PO daily May 06, 2017 1:00am March 29, 2018 2:55pm Start: 04-21-2015 take 1 tablet by devan th once daily KRILL OIL 1000 MG CAPS One tablet by devan th daily KRILL OIL [id number] Adam Maloney MD meloxicam 15 mg oral tablet (20 sources) Nonsteroidal Anti-inflammatory Drug Start: 05-06-2017 End: 05-07-2017 Meloxicam 15 mg tablet Discontinued PO 15 0 May 06, 2017 1:00am May 07, 2017 2:27pm Start: 05-06-2017 End: 05-07-2017 Meloxicam Discontinued PO 15 May 06, 2017 1:00am May 07, 2017 2:27pm Start: 11-08-2016 take 1 tablet by devan th once daily MELOXICAM 15 MG TABS One tablet by mouth daily MELOXICAM [id number] Stephen Grant HAIR SAMPLE MATCHER metaxalone 800 mg oral tablet (20 sources) Start: 10-24-2021 End: 11-13-2021 take 1 tablet by mouth three times daily as needed for pain Metaxalone 800 mg tablet Discontinued 800 mg PO THREE TIMES A DAY as needed for Back pain 60 1 October 24, 2021 1:25pm November 13, 2021 [...] pack Discontinued 0 PO per package directions 21 0 May 12, 2023 1:00am July 04, 2023 2:45pm PO PER PKG DIR Start: 04-24-2023 End: 04-24-2023 take 1 tablet by mouth once Methylprednisolone (Medrol (Andrew)) 4 mg tablets,dose pack Discontinued 4 mg PO per package directions 21 6 0 April 24, 2023 1:00am April 29, 2023 [...] One tablet by mouth daily MULTIPLE VITAMIN [id number] Rosanne Patel RN MULTIPLE VITAMIN (3 sources) Start: 12-22-2012 take 1 tablet by mouth once daily MULTIVITAMINS TABS One tablet by mouth daily MULTIPLE VITAMIN [id number] Rosanne Patel RN MULTIPLE VITAMIN (1 source) Start: 06-27-2014 ONE-A-DAY ESSENTIAL TABS 1 tablet daily MULTIPLE VITAMIN [id number] Kary Bhardwaj niacin 500 mg oral tablet (17 sources) Nicotinic Acid Start: 10-18-2010 End: 02-11-2012 take 1 tablet by mouth at bedtime NIASPAN 500 MG CR-TABS One tablet by mouth at bedtime. NIACIN (ANTIHYPERLIPIDEMI C) [id number] Pasha Herrmann MD Start: 10-18-2010 End: 02-11-2012 take 1 tablet by mouth at bedtime NIASPAN 500 MG CR-TABS One tablet by mouth at bedtime. NIACIN (ANTIHYPERLIPIDEMIC) [id number] Jessica Madden RN take 1 tablet by devan th once daily niacin sustained release (NIASPAN) 500 mg ORAL tablet Take 500 mg by mouth once daily. Active Nirmatrelvir-Ritonavir (Paxlovid) 300 mg (150 mg x 2)-100 mg tablets,dose pack (11 sources) Start: 01-14-2024 End: 02-04-2024 Nirmatrelvir-Ritonavir (Paxlovid) [...] capsule once daily OMEGA-3 FATTY ACIDS CAPS [id number] Kassidy Will permethrin 50 mg/ml topical cream (17 sources) Pyrethroid Start: 04-08-2022 End: 05-27-2022 Permethrin [...] TABS One tablet by mouth daily PREDNISONE [id number] Adam Maloney MD pregabalin 50 mg oral [...] Discontinued 50 mg PO AT BEDTIME 30 3 August 23, 2020 3:01pm August 14, 2021 1:25pm tiZANidine 4 mg oral tablet (16 sources) Central alpha-2 Adrenergic Agonist Start: 10-18-2010 End: 06-13-2011 TIZANIDINE HCL 4 MG TABS As needed TIZANIDINE HCL [id number] Pasha Herrmann MD traMADol hydrochloride 50 mg oral tablet (16 sources) Opioid Agonist Start: 10-18-2010 End: 06-13-2011 TRAMADOL HCL 50 MG TABS As needed TRAMADOL HCL 68104013022 Pasha Herrmann MD 24 hr verapamil hydrochloride [...] CR-TABS One tablet by mouth VERAPAMIL HCL [id number] Stephen Grant HAIR SAMPLE MATCHER Start: 03-15-2016 End: 08-23-2020 take 1 tablet by mouth once daily verapamil (CALAN) 120 MG tablet Take 120 mg by mouth daily. 6 03/15/2016 08/23/2020 Discontinued (Therapy completed) Problems Active Problems Problem Classification Problem Date Documented Da te Episodic/Chronic Abdominal pain (16 sources) Abdominal pain; Translations: [Unspecified abdominal pain] 09-28-2022 Episodic Acute bronchitis (20 sources) Acute bronchitis; Translations: [Acute bronchitis, unspecified] 08-15-2020 Episodic Adjustment disorders (2 sources) Reactive depression (situational); Translations: [Adjustment disorder with depressed mood] 01-14-2025 Chronic Allergic reactions (17 sources) Contact dermatitis; Translations: [Allergic contact dermatitis [...] 10-14-2013 Chronic Genitourinary symptoms and ill-defined conditions (20 sources) Increased frequency of urination; Translations: [Frequency of micturition] 09-28-2022 Episodic Heart valve disorders (20 sources) Mitral valve prolapse; Translations: [Nonrheumatic mitral (valve) prolapse] Onset: 1 10-18-2010 Chronic Hyperplasia of prostate (2 sources) Retention of urine; Translations: [Benign prostatic hyperplasia with lower urinary tract symptoms] 01-14-2025 Chronic Inflammatory conditions of male genital organs [...] right shoulder] Onset: 5 05-30-2023 Chronic Other aftercare (2 sources) Long-term current use of drug therapy; Translations: [MCFP (current) use of antithrombotics/antipl atelets] 01-14-2025 Episodic Other connective tissue disease (20 sources) Muscle spasm of cervical muscle of neck; Translations: [Other muscle spasm] 08-20-2018 Episodic Other connective tissue disease (14 sources) Inflammation of rotator cuff tendon; Translations: [Other shoulder lesions, unspecified shoulder] 05-30-2023 Episodic Other connective tissue disease (3 sources) Other shoulder lesions, unspecified shoulder; Translations: [Disorders of bursae and tendons in shoulder region, unspecified] 05-30-2023 Episodic Other connective tissue disease (12 sources) Pain in left lower limb; Translations: [Pain in left leg] 04-03-2024 Episodic Other diseases of bladder and urethra (2 sources) Painful bladder spasm; Translations: [Other specified disorders of bladder] 01-14-2025 Chronic Other ear and sense organ disorders (20 [...] transit constipation] Episodic Other infections; including parasitic (17 sources) Infestation by Sarcoptes scabiei leeroy hominis; Translations: [Scabies] 04-08-2022 Episodic Other infections; including parasitic (2 sources) Scabies; Translations: [Scabies] Episodic Other inflammatory condition of skin (17 sources) Itching of skin; Translations: [Pruritus, unspecified] [...] syndrome, right upper limb] 07-03-2021 Chronic Other non-traumatic joint disorders (20 sources) Pain in left knee; Translations: [Left knee pain] Onset: 5 07-21-2024 Episodic Other skin disorders (20 sources) Seborrheic keratosis; Translations: [Other seborrheic keratosis] 08-15-2020 Episodic Other skin disorders (11 sources) Actinic keratosis; Translations: [Actinic keratosis] 09-30-2023 Episodic Other upper respiratory infections (19 sources) Acute upper respiratory infection; Translations: [Acute [...] level, right arm, initial encounter] 05-12-2023 Episodic Suicide and intentional self-inflicted injury (2 sources) Suicidal thoughts; Translations: [Suicidal ideations] 01-14-2025 Episodic Thyroid disorders (17 sources) Non-toxic multinodular goiter; Translations: [Nontoxic multinodular goiter] Onset: 1 04-16-2016 Chronic Unclassified (1 source) Unknown / UNK(Unknown) Onset: 8 Unclassified (3 sources) Long-term drug therapy; Translations: [Other tank terminal gauger (current) drug therapy] Onset: 1 12-04-2010 Unclassified (16 sources) Carpal tunnel syndrome of right wrist; Translations: [G56.01 - Carpal tunnel syndrome, right upper limb] Urinary tract infections (1 source) Acute cystitis without hematuria; Translations: [Acute cystitis without hematuria] Onset: Episodic Past or Other Problems Problem Classification Problem [...] 02-04-2024 Episodic Other aftercare (5 sources) Other tank terminal gauger (current) drug therapy; Translations: [Other half-way (current) drug therapy] Onset: 12-04-2010 12-04-2010 Episodic Other connective tissue disease (1 source) Pain in left leg; Translations: [Pain in left leg] Onset: 05-04-2024 Episodic Residual codes; unclassified (3 sources) Family [...] Test Name Value Interpretation Reference Range Facility Absolute lymphocyte countOrd ered By: Samansilvina Muniz on 01-14-2025 Lymphocytes Auto (Unsp spec) [#/Vol] 1.14 10*3/uL 0.83-4.51 [facility] Absolute neutrophil countOrd ered By: [facility] Neutrophils (Bld) [#/Vol] 7.8 10*3/uL High 2.0-7.7 [facility] Anion gap in Serum or Plasma Ordered By: Samansilvina Muniz on 01-14-2025 Anion gap [Moles/Vol] 15 mmol/L 5-15 [facility] Automated lymphocyte count a s percentage of total leukocytesOrdered By: [facility] Muniz on 01-14-2025 Lymphocytes/100 WBC Auto (Unsp spec) 11.4 % Low 19-41 [facility] BUN/creatinine ratioOrdered By: [facility] on 01-14-2025 Urea nitrogen/Creatinine [Mass ratio] 15.2 mg/mg 10-20 [facility] Basophil percentageOrdered B y: Samansilvina Muniz on 01-14-2025 Basophils/100 WBC (Bld) 0.4 % 0-[address] [facility] Carbon dioxide, total [Moles /volume] in Central venous bloodOrdered By: Samansilvina Muniz on 01-14-2025 CO2 [Moles/Vol] 20.0 mmol/L Low 21.0-32.0 [facility] Chloride assayOrdered By: [facility] Flavio on 01-14-2025 Chloride [Moles/Vol] 98 mmol/L 98-108 [facility] Eosinophil percentageOrdered By: [facility] on 01-14-2025 Eosinophils/100 WBC (Bld) 0.4 % 0-5 [facility] Erythrocyte distribution wid th ratioOrdered By: Samansilvina Muniz on 01-14-2025 Erythrocyte distribution width (RBC) [Ratio] 12.6 % 11.6-14.6 [facility] Erythrocyte distribution wid th standard deviationOrdered By: Saman Muniz on 01-14-2025 Erythrocyte distribution width (RBC) [Ratio] 41.6 fl 35.1-43.9 [facility] Glomerular filtration rate ( GFR) estimation/1.73 sq m using serum, plasma, or whole bOrdered By: Samansilvina Muniz on 01-14-2025 GFR/1.73 sq M.predicted among non-blacks MDRD (S/P/Bld) [Vol rate/Area] 82 mL/min/{1.73_m2} >60 [facility] Comment on above: mL/min/1.73m2 CKD-EP I Creatinine Equation (2020) Hematocrit Auto (Bld) [Volum e fraction]Ordered By: Saman Muniz on 01-14-2025 Hematocrit (Bld) [Volume fraction] 45.5 % 40-54 [facility] Hemoglobin measurementOrdere d By: Samansilvina Muniz on 01-14-2025 Hemoglobin (Bld) [Mass/Vol] 15.5 g/dL 13.0-16.5 [facility] Immature granulocytes/100 WB C Auto (Bld)Ordered By: Samansilvina Muniz on 01-14-2025 Immature granulocytes/100 WBC (Bld) 0.600 % 0.0-0.9 [facility] Comment on above: IG% - Immature Granu locytes (promyelocytes, myelocytes and metamyelocytes) > 1% indicates that a LEFT SHIFT is Present. MCV (mean corpuscular volume ) determinationOrdered By: Samansilvina Muniz on 01-14-2025 MCV (RBC) [Entitic vol] 89.0 fL 80-94 [facility] Mean corpuscular hemoglobin (MCH) determinationOrdered By: Saman Muniz 01-14-2025 MCH (RBC) [Entitic mass] 30.3 pg 27.0-32.0 [facility] Mean corpuscular hemoglobin concentration (MCHC) determinationOrdered By: Samansilvina Muniz 01-14-2025 MCHC (RBC) [Mass/Vol] 34.1 g/dL 32-36 [facility] Mean platelet volume determi nationOrdered By: Saman Muniz on 01-14-2025 Platelet mean volume (Bld) [Entitic vol] 9.9 fL 6.2-12.0 [facility] Monocyte percentageOrdered B y: Saman Muniz on 01-14-2025 Monocytes/100 WBC (Bld) 8.8 % 0-10 [facility] Neutrophil percentageOrdered By: Saman Muniz on 01-14-2025 Neutrophils/100 WBC (Bld) 78.4 % High 47-70 [facility] Nucleated red blood cell per centageOrdered By: Saman Muniz on 01-14-2025 Nucleated RBC/100 WBC (Bld) [Ratio] 0 % 0-5 [facility] Platelet countOrdered By: Ke Muniz on 01-14-2025 Platelets (Bld) [#/Vol] 262 10*3/uL 150-450 [facility] Potassium measurement (mass/ volume)Ordered By: Saman Muniz on 01-14-2025 Potassium (Unsp spec) [Mass/Vol] 4.1 mmol/L 3.3-5.1 [facility] Comment on above: Hemolysis present, R esults could be affected. RBC Auto (Bld) [#/Vol]Ordere d By: Saman Muniz on 01-14-2025 RBC (Bld) [#/Vol] 5.11 10*6/uL 4.6-6.2 [facility] Serum creatinine measurement (mass/volume)Ordered By: Saman Muniz on 01-14-2025 Creatinine [Mass/Vol] 0.96 mg/dL 0.70-1.20 [facility] Serum glucose measurement (m ass/volume)Ordered By: Saman Muniz on 01-14-2025 Glucose [Mass/Vol] 122 mg/dL High 70-99 [facility] Serum or plasma calcium phillip urement (mass/volume)Ordered By: Saman Muniz on 01-14-2025 Calcium [Mass/Vol] 9.4 mg/dL 7.6-11.0 [facility] Serum or plasma ethanol phillip urement (mass/volume)Ordered By: Saman Muniz on 01-14-2025 Ethanol [Mass/Vol] mg/dL <10.1 [facility] Comment on above: This test is for med ical purposes only. The legal definition of intoxication varies according to local law. Serum or plasma urea nitroge n measurement (mass/volume)Ordered By: Samansilvina Muniz on 01-14-2025 Urea nitrogen [Mass/Vol] 15 mg/dL 4-19 [facility] Sodium levelOrdered By: Samansilvina Muniz on 01-14-2025 Sodium [Moles/Vol] 133 mmol/L 133-145 [facility] White blood cell (WBC) count Ordered By: Saman Muniz on 01-14-2025 WBC (Bld) [#/Vol] 10.0 10*3/uL 4.4-11.0 [facility] Urine cultureOrdered By: Jhon Winston on 01-11-2025 Bacteria identified Cx Nom (U) GNR lactose transaction manager Abnormal [facility] PSA,Total- Diagnosticon 12-04 PSA, DIAGNOSTIC 3.10 ng/mL Normal 0.00-4.00 [facility] Comment on above: Result Comment: This test was performed using the [facility] tPSA method. Measured values of a patient??sample can vary depending on the testing procedure used. PSA values determined on patient samples by different testing procedures cannot be used interchangeably. If there is a change in PSA assays while monitoring therapy, sequential testing should be performed to confirm baseline values. Performed By: #### L [phone] #### [facility] [address] [place], [place], [address] Cardiology Visit Reporton Cardiology Visit Report [facility] [address] [place], [place] [address] OFFICE VISIT Date of Service: 11/10/24 MR#: [id number] Acct: [id number] Name: ARTURO CORONADO Rep #: [id number] : 1945 Provider: SEGUN Burton Age/Sex: 79/M Location: [facility] [facility] [place] Status: Signed HPI HPI History of Present [...] Monitor Intake Visit Reasons: 4 M FU Telemarketing Sales Representative Required: No Accompanied by: Self Is patient in pain?: No Allergies niacin (From Niaspan Extended-Release) Allergy (Verified 11/10/24 14:59) Extreme Itching cyclobenzaprine Adverse Reaction (Unknown, Verified 11/10/24 14:59) Heart feels like wants to stop Medications ???Medication ???Instructions ???Recorded ???Confirmed ???Type coenzyme G99-X-poukxwlbc 100 mg-20 1 ea PO DAILY 03/25/13 [...] year?: Yes (slipped on ice in driveway) [facility] Medical History Osteoarthritis of left knee Right shoulder strain Scabies Thyroid goiter Back pain due to injury Family history of colon cancer Seborrheic keratoses Cervical disc disease Cervical cord compression with myelopathy Painful neck Swallowing problem Chronic back pain Nonrheumatic mitral (valve) prolapse Essential (primary) hypertension Back pain Obstructive sleep apnea GERD (gastroesophageal reflux disease) Atherosclerosis of coronary artery of [place] heart without angina pectoris Hyperlipidemia Surgical History [...] Eyes Eyes: (more content not included)... Normal [facility] Orthopedic Visit Reporton Orthopedic Visit Report [facility] [address] [place] [address] OFFICE VISIT Date of Service: 11/08/24 MR#: [id number] Acct: [id number] Name: ARTURO CORONADO Rep #: [id number] : 1945 Provider: Dr. Edwar rojas MD Age/Sex: 79/M [place] [facility] Status: Signed Intake Vital Signs 10/12/24 14:20 [...] Medications ???Medication ???Instructions ???Recorded ???Confirmed ???Type coenzyme T26-W-pidmnscyc 100 mg-20 1 ea PO DAILY 03/25/13 [...] reflux disease) Atherosclerosis of coronary artery of [place] heart without angina pectoris Hyperlipidemia Surgical History [...] by me, Dr. Edwar Person MD 11/08/24 6241. Part of today???s visit was documented by [...] Performing Provider: Edwar Person MD Performing Location: [facility] Administered by: Edwar Person MD on 11/08/24 13:41 Dose Route Admin Location Dispensed Lot Number Expiration Date NDC Man ufacturer 10 mg intra-articular left knee 2 mL [id number] 03/08/25 [address]-8 [employer] Coding Level of Care Code Attention Blacktop Spreader Diagnoses Osteoarthritis of left knee M17.12 (more content not included)... Normal [facility] Bilirubin directOrdered By: Carmen Garcia on 11-06-2024 Bilirubin.direct [Mass/Vol] 0.35 mg/dL High 0.00-0.30 [facility] Bilirubin, totalOrdered By: Carmen Garcia on 11-06-2024 Bilirubin [Mass/Vol] 0.94 mg/dL 0.00-1.30 [facility] Calculated very low density lipoprotein (VLDL) cholesterol measurementOrdered By: Carmen Garcia on 11-06-2024 Calculated very low density lipoprotein (VLDL) cholesterol measurement 14 mg/dL 5-40 [facility] LDL calc ser/plasOrdered By: Carmen Garcia on 11-06-2024 Cholesterol in LDL [Mass/Vol] 74 mg/dL [facility] Comment on above: Jhiuptzajh=471-797 m g/dL & Higher Uclq=804 mg/dL or greater Laboratory - Chemistry and C hemistry - challengeOrdered By: Carmen Garcia on 11-06-2024 AST [Catalytic activity/Vol] 41 U/L High <38 [facility] Lipid Profileon 11-06-2024 CHOL:HDL 3.14 Normal [facility] Comment on above: Performed By: #### L 500.4100, L500.3400 ####[facility] [address] [place], [address] Cholesterol [Mass/Vol] 130 mg/dL Normal <=200 [facility] Comment on above: Result Comment: Chol esterol level, Desirable <200 mg/dL Borderline high cholesterol 200-239 mg/dL High cholesterol >=240 mg/dL Recommendations of the NCEP Adult Treatment Panel for the following risk-cutoff thresholds for the [place] population. Performed By: #### L 500.4100, L500.3400 ####[facility] [address] [place], [address] Cholesterol in HDL [Mass/Vol] 41 mg/dL Normal [facility] Comment on above: Result Comment: Alejandra onal Cholesterol Education Program (NCEP) guidelines: <40 mg/dL: Low HDL-cholesterol (major risk factor for CHD) >= 60 mg/dL: High HDL-cholesterol (negative risk factor for CHD) HDL-cholesterol is affected by a number of factors, e.g. smoking, exercise, hormones, sex and age. Performed By: #### L 500.4100, L500.3400 ####[facility] [address] [place], [address] Cholesterol in LDL [Mass/Vol] 74 mg/dL Normal [facility] Comment on above: Result Comment: Bord ljmclc=067-274 mg/dL Higher Wgzi=682 mg/dL or greater Performed By: #### L 500.4100, L500.3400 ####[facility] [address] [place], [address] Cholesterol in VLDL [Mass/Vol] 14 mg/dL Normal 5-40 [facility] Comment on above: Performed By: #### L 500.4100, L500.3400 ####[facility] [address] [place], [address] Triglyceride [Mass/Vol] 72 mg/dL Normal [facility] Comment on above: Result Comment: The drugs N-Acetylcysteine and Metamizole may falsely depress this assay. Normal range: <150 mg/dL Borderline High: 150-199 mg/dL High: 200-499 mg/dL Very High: >500 mg/dL Performed By: #### L 500.4100, L500.3400 ####[facility] [address] [place], [address] Liver Profileon 11-06-2024 Albumin [Mass/Vol] 4.3 g/dL Normal 3.4-4.8 [facility] Comment on above: Performed By: #### L 500.4100, L500.3400 #### [facility] [address] [place], [address] ALK PHOS 89 U/L Normal 40-129 [facility] Comment on above: Performed By: #### L 500.4100, L500.3400 #### [facility] [address] [place], [address] ALT [Catalytic activity/Vol] 45 U/L Normal <=46 [facility] Comment on above: Performed By: #### L 500.4100, L500.3400 #### [facility] [address] [place], [address] AST [Catalytic activity/Vol] 41 U/L High <=37 [facility] Comment on above: Performed By: #### L 500.4100, L500.3400 #### [facility] [address] [place], [address] Bilirubin [Mass/Vol] 0.94 mg/dL Normal 0.00-1.30 [facility] Comment on above: Performed By: #### L 500.4100, L500.3400 #### [facility] [address] [place], [address] Bilirubin.direct [Mass/Vol] 0.35 mg/dL High 0.00-0.30 [facility] Comment on above: Performed By: #### L 500.4100, L500.3400 #### [facility] [address] [place], [address] Globulin (S) [Mass/Vol] 2.3 g/dL Normal 2.2-4.2 [facility] Comment on above: Performed By: #### L 500.4100, L500.3400 #### [facility] [address] [place], [address] T PROT 6.6 g/dL Normal 5.9-8.4 [facility] Comment on above: Performed By: #### L 500.4100, L500.3400 #### [facility] [address] [place], [address] Screening total cholesterol/ high density lipoprotein (HDL) cholesterol ratioOrdered By: Carmen Garcia on 11-06-2024 Cholesterol.total/Cris sterol in HDL [Mass ratio] 3.14 {ratio} [facility] Serum globulin measurementOr dered By: Carmen Garcia on 11-06-2024 Globulin (S) [Mass/Vol] 2.3 g/dL 2.2-4.2 [facility] Serum or plasma alanine tyler otransferase (ALT) measurementOrdered By: Carmen Garcia on 11-06-2024 ALT [Catalytic activity/Vol] 45 U/L <47 [facility] Serum or plasma albumin phillip urement (mass/volume)Ordered By: Carmen Garcia on 11-06-2024 Albumin [Mass/Vol] 4.3 g/dL 3.4-4.8 [facility] Serum or plasma alkaline mera sphatase measurementOrdered By: Carmen Garcia on 11-06-2024 ALP [Catalytic activity/Vol] 89 U/L 40-129 [facility] Serum or plasma cholesterol in HDL measurement (mass/volume)Ordered By: Carmen Garcia on 11-06-2024 Cholesterol in HDL [Mass/Vol] 41 mg/dL >40 [facility] Comment on above: National Cholesterol Education Program (NCEP) guidelines:<40 mg/dL: Low HDL-cholesterol (major risk factor for CHD)>= 60 mg/dL: High HDL-cholesterol (negative risk factor for CHD)HDL-cholesterol is affected by a number of factors, e.g. smoking, exercise, hormones, sex and age. Serum or plasma cholesterol measurement (mass/volume)Ordered By: Carmen Garcia on 11-06-2024 Cholesterol [Mass/Vol] 130 mg/dL <201 [facility] Comment on above: Cholesterol level, D esirable <200 mg/dLBorderline high cholesterol 200-239 mg/dLHigh cholesterol >=240 mg/dLRecommendations of the NCEP Adult Treatment Panel for the following risk-cutoff thresholds for the [place] population. Total proteinOrdered By: Venancio Garcia on 11-06-2024 Protein [Mass/Vol] 6.6 g/dL 5.9-8.4 [facility] Triglycerides measurementOrd ered By: Carmen Garcia on 11-06-2024 Triglyceride [Mass/Vol] 72 mg/dL <199 [facility] Comment on above: The drugs N-Acetylcy steine and Metamizole may falsely depress this assay. Normal range: <150 mg/dLBorderline High: 150-199 mg/dLHigh: 200-499 mg/dLVery High: >500 mg/dL Orthopedic Visit Reporton Orthopedic Visit Report [facility] [address] [place] [address] OFFICE VISIT Date of Service: 11/01/24 MR#: [id number] Acct: [id number] Name: DREAARTURO René Rep #: [id number] : 1945 Provider: Dr. Edwar rojas MD Age/Sex: 79/M [place] [facility] Status: Signed Intake Vital Signs 10/12/24 14:20 [...] Medications ???Medication ???Instructions ???Recorded ???Confirmed ???Type coenzyme F79-J-hyjeuvdbx 100 mg-20 1 ea PO DAILY 03/25/13 [...] PRN neck pain #90 cap s 02/05/24 11/01/24 Rx lisinopril 10 mg tablet 10 mg [...] reflux disease) Atherosclerosis of coronary artery of [place] heart without angina pectoris Hyperlipidemia Surgical History [...] made by me, Dr. Edwar Person MD 11/01/24 0913. Part of today???s visit was documented by [...] Admin Location Dispensed Lot Number Expiration Date [facility] Brian ufacturer 20 mg intra-articular Left knee 2 mL [id number] 03/08/25 [address]-9 [employer] Coding Level of Care Code Attention Jeffrey (more content not included)... Normal [facility] Orthopedic Visit Reporton Orthopedic Visit Report [facility] [address] [place] [address] [address] [place] [address] OFFICE VISIT Date of Service: 10/25/24 MR#: [id number] Acct: [id number] Name: ARTURO CORONADO Rep #: [id number] : 1945 Provider: Dr. Edwar rojas MD Age/Sex: 79/M [place] [facility] Status: Signed Intake Vital Signs 10/12/24 14:20 [...] Medications ???Medication ???Instructions ???Recorded ???Confirmed ???Type coenzyme L51-Q-mvpnigkrg 100 mg-20 1 ea PO DAILY 03/25/13 [...] reflux disease) Atherosclerosis of coronary artery of [place] heart without angina pectoris Hyperlipidemia Surgical History [...] Performing Provider: Edwar Person MD Performing Location: [facility] Administered by: Edwar Person MD on 10/25/24 13:49 Dose Route Admin Location Dispensed Lot Number Expiration Date [facility] Man ufacturer 20 mg intra-articular Left knee 2 mL [id number] 03/08/25 [address]-1 [employer] Coding Level of Care Code Attention Jeffrey Diagnoses O (more content not included)... Normal [facility] Orthopedic Visit Reporton Orthopedic Visit Report [facility] [address] [place] [address] OFFICE VISIT Date of Service: 10/12/24 MR#: [id number] Acct: [id number] Name: ARTURO CORONADO Rep #: [id number] : 1945 Provider: Dr. Edwar rojas MD Age/Sex: 79/M Location[place] [facility] Status: Signed Intake Vital Signs 09/01/24 11:08 [...] Medications ???Medication ???Instructions ???Recorded ???Confirmed ???Type coenzyme R24-F-hwkcyoowz 100 mg-20 1 ea PO DAILY 03/25/13 [...] in the past year?: Yes (April 2024) [facility] Medical History (Updated 10/12/24 @ 14:44 by [...] reflux disease) Atherosclerosis of coronary artery of [place] heart without angina pectoris Hyperlipidemia Surgical History [...] Patient worked quite a bit with an [employer]. He is retired now. Vxqth-cwmh-voltqasz. He tried night splinting that was not [...] He has not had surgery. Supplemental Info [facility]Neurology [address] [place] [address] MR#: (more content not included)... Normal [facility] Internal Medicine Office Vis gato 09-01-2024 Internal Medicine Office Visit [facility] [address] [place], [place] [id number] OFFICE VISIT Date of Service: 09/01/24 MR#: [id number] Acct: [id number] Name: ARTURO CORONADO Rep #: [id number] : 1945 Provider: Dr. Gauri Villa Br own, DO Age/Sex: 79/M [place] [facility] Status: Signed Intake Vital Signs 07/21/24 15:27 [...] Medications ???Medication ???Instructions ???Recorded ???Confirmed ???Type coenzyme Y20-Y-ggxxwidls 100 mg-20 1 ea PO DAILY 03/25/13 09/01/24 History mg capsule multivitamin with folic acid 400 1 tab PO DAILY 03/25/13 09/01/24 H istory mcg tablet omega-3 fatty acids 1,000 mg 1,000 mg PO DAILY 08/20/18 5 History capsule aspirin 81 mg chewable tablet 81 mg PO DAILY #90 tabs 08/15/20 0 09/01/24 Rx clopidogrel 75 mg tablet See Rx Instructions .Route 09/01/24 Rx .COMPLEX #90 tabs nitroglycerin 0.4 [...] tingling right arm for past 1.5 weeks PFSH Medical History Right shoulder strain Scabies Thyroid goiter Back pain due to injury Family history of colon cancer Seborrheic keratoses Cervical disc disease Cervical cord compression with myelopathy Painful neck Swallowing problem Chronic back pain Nonrheumatic mitral (valve) prolapse Essential (primary) hypertension Back pain Obstructive sleep apnea GERD (gastroesophageal reflux disease) Atherosclerosis of coronary artery of [place] heart without angina pectoris Hyperlipidemia Surgical History [...] tinnitus, siomara (more content not included)... Normal [facility] Echo Completeon 08-04-2024 Echo Complete [facility] [address] [facility] [place] [address] Echo Complete 08/04/24 1303 MR#: [id number] Acct: [id number] Name: ARTURO CORONADO Rep #: [id number] : 1945 79 From: Adam Maloney MD Attending Dr: SEGUN Garcia Status: REG CLI Ordering Dr: Carmen Garcia Date: 06/29 Location: [facility] Sex: M C Admitted: Reason For Study [...] systolic pressure is 36 mmHg. Ordering Physician: aCrmen Garcia Referring Physician: Carmen Garcia Performed By: Kun Shepherd RCS 08/04/24 1434 Date Adam Maloney MD CC: Dr. Gauri Vila DO; SEGUN Garcia Date Dictated: 08/04/24 1303 Date Transcribed: 08/04/24 143 Nautical Instrument Mechanic: Signed Elisha [facility] Internal Medicine Office Vis iton 07-21-2024 Internal Medicine Office Visit [facility] [address] [place] [address] [place] [address] OFFICE VISIT Date of Service: 07/21/24 MR#: [id number] Acct: [id number] Name: ARTURO CORONADO Rep #: [id number] : 1945 Provider: Dr. Gauri samson DO Age/Sex: 79/M [place] [facility] Status: Signed Intake Vital Signs 07/07/24 08:53 [...] Medications ???Medication ???Instructions ???Recorded ???Confirmed ???Type coenzyme W87-A-lszauufjv 100 mg-20 1 ea PO DAILY 03/25/13 [...] post fall from about 2 months ago [facility] Medical History Right shoulder strain Scabies Thyroid goiter Back pain due to injury Family history of colon cancer Seborrheic keratoses Cervical disc disease Cervical cord compression with myelopathy Painful neck Swallowing problem Chronic back pain Nonrheumatic mitral (valve) prolapse Essential (primary) hypertension Back pain Obstructive sleep apnea GERD (gastroesophageal reflux disease) Atherosclerosis of coronary artery of [place] heart without angina pectoris Hyperlipidemia Surgical History [...] or change (more content not included)... Normal [facility] Knee 4 or More Viewson 07-21 Knee 4 or More Views [facility] Imaging Services [address] [place], [place] [id number] Knee 4 or More Views MR#: [id number] Acct: [id number] Name: ARTURO CORONADO Rep #: [id number] : 1945 M 79 From: Tien Ferro MD PCP: Dr. Gauri Vila, Status: REG CLI Study: Knee 4 or More Views Date of Exam: 07/21/24 Exam# [id number] Ordering Dr: Gauri Vila DO PROCEDURE: KNEE [...] derangement, recommend CT/MRI, as indicated. Reading Location: [id number] CC: Dr. Gauri Vila DO Nautical Instrument Mechanic: Signed Normal [facility] Cardiology Visit Reporton Cardiology Visit Report [facility] [address] [place], [place] [address] OFFICE VISIT Date of Service: 07/07/24 MR#: [id number] Acct: [id number] Name: ARTURO CORONADO Rep #: [id number] : 1945 Provider: SEGUN Burton Age/Sex: 79/M Location: [facility] Status: Signed HPI HPI History of [...] He recently saw a neurosurgeon at the [facility] and was told that he would not [...] 94 Intake Visit Reasons: 1 Y FU Telemarketing Sales Representative Required: No Is patient in pain?: No Allergies niacin (From Niaspan Extended-Release) Allergy (Verified 07/07/24 14:22) Extreme Itching cyclobenzaprine Adverse Reaction (Unknown, Verified 07/07/24 14:22) Heart feels like wants to stop Medications ???Medication ???Instructions ???Recorded ???Confirmed ???Type coenzyme I80-X-hlhieabxl 100 mg-20 1 ea PO DAILY 03/25/13 [...] Nurse's Note: unable to confirm all medications [facility] Medical History Right shoulder strain Scabies Thyroid goiter Back pain due to injury Family history of colon cancer Seborrheic keratoses Cervical disc disease Cervical cord compression with myelopathy Painful neck Swallowing problem Chronic back pain Nonrheumatic mitral (valve) prolapse Essential (primary) hypertension Back pain Obstructive sleep apnea GERD (gastroesophageal reflux disease) Atherosclerosis of coronary artery of [place] heart without angina pectoris Hyperlipidemia Surgical History History of orthopedic surgery History of facial surgery History of shoulder surgery H/O right knee surgery History of left heart catheterization (11/19/21) History of coronary artery stent placement (05/16/10) Family History Father CAD (coronary artery disease) Diabetes Heart disease Myocardial infarction Hypertension Mother Heart disease Diabetes CVA (cerebral vascular accident) S (more content not included)... Normal [facility] Bilirubin directOrdered By: Carmen Garcia on 07-05-2024 Bilirubin.direct [Mass/Vol] 0.51 mg/dL High 0.00-0.30 [facility] Bilirubin, totalOrdered By: Carmen Garcia on 07-05-2024 Bilirubin [Mass/Vol] 1.38 mg/dL High 0.00-1.30 [facility] Calculated very low density lipoprotein (VLDL) cholesterol measurementOrdered By: Carmen Garcia on 07-05-2024 Calculated very low density lipoprotein (VLDL) cholesterol measurement 15 mg/dL [facility] VLDL Cholesterol 15 mg/dL 40 [facility] LDL calc ser/plasOrdered By: Carmen Garcia on 07-05-2024 Cholesterol in LDL [Mass/Vol] 62 mg/dL [facility] Comment on above: Qcugptfsgj=598-341 m g/dL & Higher Vamz=094 mg/dL or greater LDL Cholesterol, Calculated 62 mg/dL [facility] Comment on above: Zfbfjfteug=797-001 m g/dL & Higher Iurg=747 mg/dL or greater Laboratory - Chemistry and C hemistry - challengeOrdered By: Carmen Garcia on 07-05-2024 AST [Catalytic activity/Vol] 43 U/L High <38 [facility] Lipid Profileon 07-05-2024 CHOL:HDL 2.65 Normal [facility] Comment on above: Order Comment: MICHELLE MCPHERSON NTED DFONE TODAY Performed By: #### L 500.3400, L500.4100 ####[facility] [address] [place], [address] Cholesterol [Mass/Vol] 123 mg/dL Normal <=200 [facility] Comment on above: Order Comment: PT [place] NTED DFONE TODAY Result Comment: Chol esterol level, Desirable <200 mg/dL Borderline high cholesterol 200-239 mg/dL High cholesterol >=240 mg/dL Recommendations of the NCEP Adult Treatment Panel for the following risk-cutoff thresholds for the [place] population. Performed By: #### L 500.3400, L500.4100 ####[facility] [address] [place], [place], [address] Cholesterol in HDL [Mass/Vol] 47 mg/dL Normal [facility] Comment on above: Order Comment: PT [place] NTED DFONE TODAY Result Comment: Alejandra onal Cholesterol Education Program (NCEP) guidelines: <40 mg/dL: Low HDL-cholesterol (major risk factor for CHD) >= 60 mg/dL: High HDL-cholesterol (negative risk factor for CHD) HDL-cholesterol is affected by a number of factors, e.g. smoking, exercise, hormones, sex and age. Performed By: #### L 500.3400, L500.4100 ####[facility] [address] [place], [address] Cholesterol in LDL [Mass/Vol] 62 mg/dL Normal [facility] Comment on above: Order Comment: PT [place] NTED DFONE TODAY Result Comment: Bord wazjck=081-388 mg/dL Higher Htqd=856 mg/dL or greater Performed By: #### L 500.3400, L500.4100 ####[facility] [address] [place], [address] Cholesterol in VLDL [Mass/Vol] 15 mg/dL Normal 5-40 [facility] Comment on above: Order Comment: PT [place] NTED DFONE TODAY Performed By: #### L 500.3400, L500.4100 ####[facility] [address] [place], [address] Triglyceride [Mass/Vol] 73 mg/dL Normal [facility] Comment on above: Order Comment: PT [place] NTED DFONE TODAY Result Comment: The drugs N-Acetylcysteine and Metamizole may falsely depress this assay. Normal range: <150 mg/dL Borderline High: 150-199 mg/dL High: 200-499 mg/dL Very High: >500 mg/dL Performed By: #### L 500.3400, L500.4100 ####[facility] [address] [place], [address] Liver Profileon 07-05-2024 Albumin [Mass/Vol] 4.1 g/dL Normal 3.4-4.8 [facility] Comment on above: Order Comment: PT [place] NTED DFONE TODAY Performed By: #### L 500.3400, L500.4100 ####[facility] [address] [place], [address] ALK PHOS 105 U/L Normal 40-129 [facility] Comment on above: Order Comment: PT [place] NTED DFONE TODAY Performed By: #### L 500.3400, L500.4100 ####[facility] [address] [place], [address] ALT [Catalytic activity/Vol] 44 U/L Normal <=46 [facility] Comment on above: Order Comment: PT [place] NTED DFONE TODAY Performed By: #### L 500.3400, L500.4100 ####[facility] [address] [place], [address] AST [Catalytic activity/Vol] 43 U/L High <=37 [facility] Comment on above: Order Comment: PT [place] NTED DFONE TODAY Performed By: #### L 500.3400, L500.4100 ####[facility] [address] [place], [address] Bilirubin [Mass/Vol] 1.38 mg/dL High 0.00-1.30 [facility] Comment on above: Order Comment: PT [place] NTED DFONE TODAY Performed By: #### L 500.3400, L500.4100 ####[facility] [address] [place], [address] Bilirubin.direct [Mass/Vol] 0.51 mg/dL High 0.00-0.30 [facility] Comment on above: Order Comment: PT [place] NTED DFONE TODAY Performed By: #### L 500.3400, L500.4100 ####[facility] [address] [place], [address] Globulin (S) [Mass/Vol] 2.4 g/dL Normal 2.2-4.[address] [facility] Comment on above: Order Comment: PT [place] NTED DFONE TODAY Performed By: #### L 500.3400, L500.4100 ####[facility] [address] [address]. [place], [place], [id number] T PROT 6.5 g/dL Normal 5.9-8.4 [facility] Comment on above: Order Comment: PT WA NTED DFONE TODAY Performed By: #### L 500.3400, L500.4100 ####[facility] [address] [place], [place], [id number] Screening total cholesterol/ high density lipoprotein (HDL) cholesterol ratioOrdered By: Carmen Garcia on 07-05-2024 Cholesterol.total/Cris sterol in HDL [Mass ratio] 2.65 {ratio} [facility] Serum globulin measurementOr dered By: Carmen Garcia on 07-05-2024 Globulin (S) [Mass/Vol] 2.4 g/dL 2.2-4.[address] [facility] Serum or plasma alanine tyler otransferase (ALT) measurementOrdered By: Carmen Garcia on 07-05-2024 ALT [Catalytic activity/Vol] 44 U/L <47 [facility] Serum or plasma albumin phillip urement (mass/volume)Ordered By: Carmen Garcia on 07-05-2024 Albumin [Mass/Vol] 4.1 g/dL 3.4-4.8 [facility] Serum or plasma alkaline mera sphatase measurementOrdered By: Carmen Garcia on 07-05-2024 ALP [Catalytic activity/Vol] 105 U/L 40-129 [facility] Serum or plasma cholesterol in HDL measurement (mass/volume)Ordered By: Carmen Garcia on 07-05-2024 Cholesterol in HDL [Mass/Vol] 47 mg/dL >40 [facility] Comment on above: National Cholesterol Education Program (NCEP) guidelines:<40 mg/dL: Low HDL-cholesterol (major risk factor for CHD)>= 60 mg/dL: High HDL-cholesterol (negative risk factor for CHD)HDL-cholesterol is affected by a number of factors, e.g. smoking, exercise, hormones, sex and age. Serum or plasma cholesterol measurement (mass/volume)Ordered By: Carmen Garcia on 07-05-2024 Cholesterol [Mass/Vol] 123 mg/dL <201 [facility] Comment on above: Cholesterol level, D esirable <200 mg/dLBorderline high cholesterol 200-239 mg/dLHigh cholesterol >=240 mg/dLRecommendations of the NCEP Adult Treatment Panel for the following risk-cutoff thresholds for the [place] population. Total proteinOrdered By: Venancio Garcia on 07-05-2024 Protein [Mass/Vol] 6.5 g/dL 5.9-8.4 [facility] Triglycerides measurementOrd ered By: Carmen Garcia on 07-05-2024 Triglyceride [Mass/Vol] 73 mg/dL <199 [facility] Comment on above: The drugs N-Acetylcy steine and Metamizole may falsely depress this assay. Normal range: <150 mg/dLBorderline High: 150-199 mg/dLHigh: 200-499 mg/dLVery High: >500 mg/dL Internal Medicine Office Vis ito 04-14-2024 Internal Medicine Office Visit [facility] [address] [place] [address] [place] [address] OFFICE VISIT Date of Service: 04/14/24 MR#: [id number] Acct: [id number] Name: ARTURO CORONADO Rep #: [id number] : 1945 Provider: Dr. Gauri Pitt own, DO Age/Sex: 79/M [place] [facility] Status: Signed Intake Vital Signs 04/03/24 10:15 04/14/24 16:23 Height 5 ft 11 in 5 ft 11 in Weight: 180 lb BMI 25.1 BP 118/70 Blood Pressure Location Lt brachial Position Sitting Respiration 16 Pulse 71 Pulse Source Monitor Temp 97.3 F L Temp Source Temporal Intake Visit Reasons: [facility] FU Chief Complaint: [facility] f/u Telemarketing Sales Representative Required: No Accompanied by: Self Is patient in pain?: No Allergies niacin (From Niaspan Extended-Release) Allergy (Verified 04/14/24 16:20) Extreme Itching cyclobenzaprine Adverse Reaction (Unknown, Verified 04/14/24 16:20) Heart feels like wants to stop Medications ???Medication ???Instructions ???Recorded ???Confirmed ???Type coenzyme F98-M-qodflwdki 100 mg-20 1 ea PO DAILY 03/25/13 [...] reflux disease) Atherosclerosis of coronary artery of [place] heart without angina pectoris Hyperlipidemia Surgical History [...] at home: Yes HPI HPI Chief Complaint: [facility] f/u Details: ARTURO CORONADO, is a [...] chest p (more content not included)... [facility] Office Visit (UCWSTR) ARTURO CORONADO ([id number]) 1945 M Date Time Provider Department 04/03/24 9:45 AM MANDY LAZARO [facility] During your visit today, we recorded the following information about you: Temperature Pulse Respiration Blood pressure 97.5 degrees 67/minute 20/minute 110/80 Weight 81 kg Mandy Lazaro PA-C 04/03/2024 9:59 AM Signed This note was created using [employer]. Subjective Arturo Coronado is a 79 year [...] the emergency department. He will go to [facility] across the street. 2. History of DVT [...] ORAL tablet (more content not included)... Normal [facility] Emergency Department Summary on 04-03-2024 Emergency Department Summary [facility] Medical Records Department [address] [place] [address] Emergency Department Summary 04/03/24 MR#: [id number] Acct: [id number] Name: ARTURO CORONADO Rep #: [id number] : 1945 79 From: Lisa Fernandez DO PCP: Dr. Gauri Vila, DO Status:[facility] ER Location: ED HPI History of Present [...] He has history of a cardiac stent. PFSH PFSH Medical History Right shoulder strain Scabies Thyroid goiter Back pain due to injury Family history of colon cancer Seborrheic keratoses Cervical disc disease Cervical cord compression with myelopathy Painful neck Swallowing problem Chronic back pain Nonrheumatic mitral (valve) prolapse Essential (primary) hypertension Back pain Obstructive sleep apnea GERD (gastroesophageal reflux disease) Atherosclerosis of coronary artery of [place] heart without angina pectoris Hyperlipidemia Home Medications ???Medication ???Instructions ???Recorded ???Last Taken ???Type coenzyme P33-E-zclgtkppv 100 mg-20 1 ea PO DAILY 03/25/13 [...] diarrhea, nausea or vomiting Genitourinary Genitourinary ED: Denie (more content not included)... Normal [facility] Venous Duplex US, Unilateral on 04-03-2024 Venous Duplex US, Unilateral [facility] [address] [place] [address] Venous Duplex US, Unilateral 04/03/24 1249 MR#: [id number] Acct: [id number] Name: ARTURO CORONADO Rep #: [id number] : 1945 79 From: Drake Carmen MD Attending Dr: Status: DEP ER Ordering Dr: Lias Fernandez DO Date: 04/03/24 Location: ED Sex: [...] Date Drake Carmen MD CC: Dr. Gauri Vila DO; Dr. Lisa Fernandez DO Date Dictated: 04/03/24 1249 Date Transcribed: 04/03/24 1613 Nautical Instrument Mechanic: Signed Normal [facility] Lipid Profileon 03-15-2024 Cholesterol [Mass/Vol] 129 mg/dL Normal 200 [facility] Comment on above: Result Comment: <200 mg/dL Desirable 200-240 mg/dL Borderline >240 mg/dL High Risk Performed By: #### L 500.3400, L500.4100 ####[facility] [address] [place], [address] Cholesterol in HDL [Mass/Vol] 46 mg/dL Normal [facility] Comment on above: Result Comment: The drugs N-Acetylcysteine and Metamizole may falsely depress this assay. Reference Range HDL <40 mg/dL Low HDL Cholesterol HDL >or= 60 mg/dL High HDL Cholesterol Performed By: #### L 500.3400, L500.4100 ####[facility] [address] [place], [address] Cholesterol in LDL [Mass/Vol] 72 mg/dL Normal 0-130 [facility] Comment on above: Performed By: #### L 500.3400, L500.4100 ####[facility] [address] [place], [address] Cholesterol in VLDL [Mass/Vol] 11 mg/dL Normal 5-40 [facility] Comment on above: Performed By: #### L 500.3400, L500.4100 ####[facility] [address] [place], [address] Triglyceride [Mass/Vol] 53 mg/dL Normal [facility] Comment on above: Result Comment: The drugs N-Acetylcysteine and Metamizole may falsely depress this assay. Serum Triglycerides Reference Interval Normal <150 mg/dL Borderline high 150 - 199 mg/dL High 200 - 499 mg/dL Very High > or = 500 mg/dL Performed By: #### L 500.3400, L500.4100 ####[facility] [address] [place], [address] Liver Profileon 03-15-2024 Albumin [Mass/Vol] 3.9 g/dL Normal 3.2-5.0 [facility] Comment on above: Performed By: #### L 500.3400, L500.4100 ####[facility] [address] [place], [address] ALK P 94 U/L Normal 45-117 [facility] Comment on above: Performed By: #### L 500.3400, L500.4100 ####[facility] [address] [place], [address] ALT [Catalytic activity/Vol] 36 U/L Normal 16-61 [facility] Comment on above: Performed By: #### L 500.3400, L500.4100 ####[facility] [address] [place], [address] AST [Catalytic activity/Vol] 28 U/L Normal 15-37 [facility] Comment on above: Performed By: #### L 500.3400, L500.4100 ####[facility] [address] [place], [address] Bilirubin [Mass/Vol] 1.10 mg/dL High 0.20-1.00 [facility] Comment on above: Result Comment: For patients on eltrombopag therapy, use of Dimension [place] TBIL is not recommended. Performed By: #### L 500.3400, L500.4100 ####[facility] [address] [place], [address] Bilirubin.direct [Mass/Vol] 0.27 mg/dL Normal 0.00-0.30 [facility] Comment on above: Performed By: #### L 500.3400, L500.4100 ####[facility] [address] [place], [address] Globulin (S) [Mass/Vol] 3.0 g/dL Normal 2.2-4.[address] [facility] Comment on above: Performed By: #### L 500.3400, L500.4100 ####[facility] [address] [place], [address] T PROT 6.9 g/dL Normal 6.4-8.2 [facility] Comment on above: Performed By: #### L 500.3400, L500.4100 ####[facility] [address] [place], [address] Internal Medicine Office Vis itojoel 02-04-2024 Internal Medicine Office Visit [facility] [address] [place] [address] [place] [address] OFFICE VISIT Date of Service: 02/04/24 MR#: [id number] Acct: [id number] Name: ARTURO CORONADO René Rep #: [id number] : 1945 Provider: Dr. Gauri samson, DO Age/Sex: 78/M [place] [facility] Status: Signed Intake Vital Signs 01/13/24 14:00 [...] room air Intake Visit Reasons: BP ISSUES Telemarketing Sales Representative Required: No Is patient in pain?: No Allergies niacin (From Niaspan Extended-Release) Allergy (Verified 02/04/24 15:46) Extreme Itching cyclobenzaprine Adverse Reaction (Unknown, Verified 02/04/24 15:46) Heart feels like wants to stop Medications ???Medication ???Instructions ???Recorded ???Confirmed ???Type coenzyme D48-P-bnmvtxpzy 100 mg-20 1 ea PO DAILY 03/25/13 [...] here in office and all checked out. [facility] Medical History Right shoulder strain Scabies Thyroid goiter Back pain due to injury Family history of colon cancer Seborrheic keratoses Cervical disc disease Cervical cord compression with myelopathy Painful neck Swallowing problem Chronic back pain Nonrheumatic mitral (valve) prolapse Essential (primary) hypertension Back pain Obstructive sleep apnea GERD (gastroesophageal reflux disease) Atherosclerosis of coronary artery of [place] heart without angina pectoris Hyperlipidemia Surgical History [...] Eyes Eyes: (more content not included)... Normal [facility] Serum or plasma thyroid stim ulating hormone (TSH) measurement (units/volume)Ordered By: Bib Franz on 07-11-2023 TSH Qn 2.43 uIU/mL 0.358-3.74 [facility] Thin prep Papanicolaou smear with manual screeningOrdered By: Bib Franz on 07-11-2023 Thin prep Papanicolaou smear with manual screening 0.93 ng/dL 0.76-1.46 [facility] Basophil percentageOrdered B y: [place] Maloney on 07-02-2023 Bilirubin [Mass/Vol] 1.20 mg/dL 0.20-1.00 [facility] Comment on above: For patients on eltr ombopag therapy, use of Dimension [place] TBIL is not recommended. Cholesterol [Mass/Vol] 139 mg/dL <200 [facility] Comment on above: <200 mg/dL Desirable 200-240 mg/dL Borderline >240 mg/dL High Risk Protein [Mass/Vol] 6.7 g/dL 6.4-8.2 [facility] Triglyceride [Mass/Vol] 64 mg/dL <199 [facility] Comment on above: The drugs N-Acetylcy steine and Metamizole may falsely depress this assay.Serum Triglycerides Reference Interval Normal <150 mg/dL Borderline high 150 - 199 mg/dL High 200 - 499 mg/dL Very High > or = 500 mg/dL Direct bilirubinOrdered By: Adam Maloney on 07-02-2023 Bilirubin.direct [Mass/Vol] 0.31 mg/dL 0.00-0.30 [facility] Laboratory - Chemistry and C hemistry - challengeOrdered By: Adam Maloney on 07-02-2023 ALP [Catalytic activity/Vol] 76 U/L 45-117 [facility] ALT [Catalytic activity/Vol] 44 U/L 16-61 [facility] Cholesterol in HDL [Mass/Vol] 46 mg/dL >40 [facility] Comment on above: The drugs N-Acetylcy steine and Metamizole may falsely depress this assay. Reference Range HDL <40 mg/dL Low HDL Cholesterol HDL >or= 60 mg/dL High HDL Cholesterol Cholesterol in LDL [Mass/Vol] 80 mg/dL 0-130 [facility] Globulin (S) [Mass/Vol] 2.9 g/dL 2.2-4.2 [facility] No Panel InformationOrdered By: Adam Maloney on 07-02-2023 VLDL Cholesterol 13 mg/dL 5-40 [facility] Thin prep Papanicolaou smear with manual screeningOrdered By: Adam Maloney on 07-02-2023 Thin prep Papanicolaou smear with manual screening 3.8 g/dL 3.2-5.0 [facility] Thin prep Papanicolaou smear with manual screening 35 U/L 15-37 [facility] No Panel Informationon 04-24 Influenza Types A,B Rapid (Clinic) Negative [facility] POC SARS CoV-2 Antigen Negative [facility] Basophil percentageOrdered B y: Adam Maloney on 11-13-2022 Bilirubin [Mass/Vol] 1.30 mg/dL 0.20-1.00 [facility] Comment on above: For patients on eltr ombopag therapy, use of Dimension [place] TBIL is not recommended. Cholesterol [Mass/Vol] 122 mg/dL <200 [facility] Comment on above: <200 mg/dL Desirable 200-240 mg/dL Borderline >240 mg/dL High Risk Protein [Mass/Vol] 6.9 g/dL 6.4-8.2 [facility] Triglyceride [Mass/Vol] 46 mg/dL <199 [facility] Comment on above: The drugs N-Acetylcy steine and Metamizole may falsely depress this assay.Serum Triglycerides Reference Interval Normal <150 mg/dL Borderline high 150 - 199 mg/dL High 200 - 499 mg/dL Very High > or = 500 mg/dL Direct bilirubinOrdered By: Adam Maloney on 11-13-2022 Bilirubin.direct [Mass/Vol] 0.32 mg/dL 0.00-0.30 [facility] Laboratory - Chemistry and C hemistry - challengeOrdered By: Adam Maloney on 11-13-2022 ALP [Catalytic activity/Vol] 83 U/L 45-117 [facility] ALT [Catalytic activity/Vol] 41 U/L 16-61 [facility] Globulin (S) [Mass/Vol] 3.2 g/dL 2.2-4.[address] [facility] No Panel InformationOrdered By: Adam Maloney on 11-13-2022 Prostate Specific Antigen Screen 2.24 ng/mL 0.00-4.00 [facility] Comment on above: This test was perfor med using the TPSA assay method for theDiFrontstartsion chemistry system. Values obtained with differentassay methods cannot be used interchangably.When changing PSA assays in the course of monitoring apatient, additional sequential testing should be carriedout to confirm baseline values. Serum or plasma albumin phillip urement (mass/volume)Ordered By: Adam Maloney on 11-13-2022 Albumin [Mass/Vol] 3.7 g/dL 3.2-5.0 [facility] Serum or plasma cholesterol in HDL measurement (mass/volume)Ordered By: Adam Maloney on 11-13-2022 Cholesterol in HDL [Mass/Vol] 41 mg/dL >40 [facility] Comment on above: The drugs N-Acetylcy steine and Metamizole may falsely depress this assay. Reference Range HDL <40 mg/dL Low HDL Cholesterol HDL >or= 60 mg/dL High HDL Cholesterol Serum or plasma cholesterol in VLDL measurement (mass/volume)Ordered By: Adam Maloney on 11-13-2022 Cholesterol in VLDL [Mass/Vol] 9 mg/dL 5-40 [facility] Serum or plasma low density lipoprotein (LDL) cholesterol measurement (mass/volume)Ordered By: Adam Maloney on 11-13-2022 Cholesterol in LDL [Mass/Vol] 72 mg/dL 0-130 [facility] Thin prep Papanicolaou smear with manual screeningOrdered By: Adam Maloney on 11-13-2022 Thin prep Papanicolaou smear with manual screening 40 U/L 15-37 [facility] Absolute lymphocyte countOrd ered By: Fer Carr on 09-20-2022 Lymphocytes Auto (Unsp spec) [#/Vol] 1.55 10*3/uL 0.83-4.51 [facility] Basophil percentageOrdered B y: Fer Carr on 09-20-2022 Basophils/100 WBC (Bld) 0.9 % 0-1 [facility] Bilirubin [Mass/Vol] 0.90 mg/dL 0.20-1.00 [facility] Comment on above: For patients on eltr ombopag therapy, use of Dimension [place] TBIL is not recommended. Chloride [Moles/Vol] 108 mmol/L 98-107 [facility] Eosinophils/100 WBC (Bld) 4.1 % 0-5 [facility] Glucose [Mass/Vol] 109 mg/dL 74-106 [facility] Comment on above: Fasting Glucose resu lt from 100 to 125 mg/dL suggests IMPAIRED HOMEOSTASIS per A.D.A. criteria. Neutrophils (Bld) [#/Vol] 3.2 10*3/uL 2.0-7.7 [facility] Neutrophils/100 WBC (Bld) 58.0 % 47-70 [facility] Potassium [Moles/Vol] 4.2 mmol/L 3.5-5.1 [facility] Protein [Mass/Vol] 7.0 g/dL 6.4-8.2 [facility] Sodium [Moles/Vol] 139 mmol/L 136-145 [facility] WBC (Bld) [#/Vol] 5.6 10*3/uL 4.4-11.0 [facility] Basophil percentage 0 SEEN /hpf 0-5 [facility] Bilirubin Test strip Ql (U)O rdered By: Fer Carr on 09-20-2022 Bilirubin Ql (U) Negative Negative [facility] Blood erythrocytes count (nu mber/volume)Ordered By: Fer Carr on 09-20-2022 RBC (Bld) [#/Vol] 5.15 10*6/uL 4.6-6.2 [facility] Blood hemoglobin measurement (mass/volume)Ordered By: Fer Carr on 09-20-2022 Hemoglobin (Bld) [Mass/Vol] 16.0 g/dL 13.0-16.5 [facility] Blood lymphocytes/100 leukoc ytesOrdered By: Fer Carr on 09-20-2022 Lymphocytes/100 WBC (Bld) 27.7 % 19-41 [facility] Blood monocytes/100 leukocyt esOrdered By: Fer Carr on 09-20-2022 Monocytes/100 WBC (Bld) 9.1 % 0-10 [facility] Blood platelet mean volumeOr dered By: Fer Carr on 09-20-2022 Platelet mean volume (Bld) [Entitic vol] 10.1 fL 6.2-12.0 [facility] Determination of erythrocyte mean corpuscular volume (MCV)Ordered By: Fer Carr on 09-20-2022 MCV (RBC) [Entitic vol] 90.9 fL 80-94 [facility] Hematocrit Auto (Bld) [Volum e fraction]Ordered By: Fer Carr on 09-20-2022 Hematocrit (Bld) [Volume fraction] 46.8 % 40-54 [facility] Ketones Test strip Ql (U)Ord ered By: Fer Carr on 09-20-2022 Ketones Ql (U) Negative Negative [facility] Laboratory - Chemistry and C hemistry - challengeOrdered By: Fer Carr on 09-20-2022 ALP [Catalytic activity/Vol] 79 U/L 45-117 [facility] ALT [Catalytic activity/Vol] 45 U/L 16-61 [facility] CO2 [Moles/Vol] 25.0 mmol/L 21.0-32.0 [facility] Globulin (S) [Mass/Vol] 3.4 g/dL 2.2-4.2 [facility] Urea nitrogen/Creatinine [Mass ratio] 14.7 mg/mg 10-20 [facility] Laboratory - Hematology and Cell countsOrdered By: Fer Carr on 09-20-2022 Erythrocyte distribution width (RBC) [Entitic vol] 43.3 fL 35.1-43.9 [facility] Erythrocyte distribution width (RBC) [Ratio] 13.1 % 11.6-14.6 [facility] Immature granulocytes/100 WBC (Bld) 0.200 % 0.0-0.9 [facility] Comment on above: IG% - Immature Granu locytes (promyelocytes, myelocytes and metamyelocytes) > 1% indicates that a LEFT SHIFT is Present. MCH (RBC) [Entitic mass] 31.1 pg 27.0-32.0 [facility] Nucleated RBC/100 WBC (Bld) [Ratio] 0 % 0-5 [facility] MCHC Auto (RBC) [Mass/Vol]Or dered By: Fer Carr on 09-20-2022 MCHC (RBC) [Mass/Vol] 34.2 g/dL 32-36 [facility] Mucus LM Ql (Urine sed)Order ed By: Fer Carr on 09-20-2022 Mucus Ql (Urine sed) 0 SEEN /hpf [facility] Nitrite Test strip Ql (U)Ord ered By: Fer Carr on 09-20-2022 Nitrite Ql (U) Negative Negative [facility] No Panel InformationOrdered By: Fer Carr on 09-20-2022 Estimated Creatinine Clearance Calc 77.25 ml/min [facility] Estimated GFR (MDRD) Amer 108 mL/min >60 [facility] Comment on above: GFR Calc Estimated GFR (MDRD) Non-Af Amer 89 mL/min >60 [facility] Comment on above: Non- GFR Calc Platelets bldOrdered By: Megan Carr on 09-20-2022 Platelets (Bld) [#/Vol] 187 10*3/uL 150-450 [facility] Protein Test strip Ql (U)Ord ered By: Fer Carr on 09-20-2022 Protein Ql (U) Negative Negative [facility] Serum or plasma albumin phillip urement (mass/volume)Ordered By: Fer Carr on 09-20-2022 Albumin [Mass/Vol] 3.6 g/dL 3.2-5.0 [facility] Serum or plasma albumin/glob ulin mass ratioOrdered By: Fer Carr on 09-20-2022 Albumin/Globulin [Mass ratio] 1.1 {ratio} 0.9-2.4 [facility] Serum or plasma calcium phillip urement (mass/volume)Ordered By: Fer Carr on 09-20-2022 Calcium [Mass/Vol] 9.0 mg/dL 8.5-10.1 [facility] Serum or plasma creatinine m easurement (mass/volume)Ordered By: Fer Carr on 09-20-2022 Creatinine [Mass/Vol] 0.88 mg/dL 0.70-1.30 [facility] Comment on above: The validity of the calculated GFR & GFRAA in patients over 70 years has not been determined. Clinical correlation is essential. Serum or plasma urea nitroge n measurement (mass/volume)Ordered By: Fer Carr on 09-20-2022 Urea nitrogen [Mass/Vol] 13 mg/dL 7-18 [facility] Squamous epithelial cells de tection in urine sediment by light microscopyOrdered By: Fer Carr on 09-20-2022 Epithelial cells.squamous LM Ql (Urine sed) 0 SEEN /hpf 0-5 [facility] Thin prep Papanicolaou smear with manual screeningOrdered By: Fer Carr on 09-20-2022 Thin prep Papanicolaou smear with manual screening 42 U/L 15-37 [facility] Thin prep Papanicolaou smear with manual screening 6 5-15 [facility] Urine blood detectionOrdered By: Fer Carr on 09-20-2022 RBC Ql (U) Negative Negative [facility] RBC Ql (U) 0 SEEN /hpf 0-5 [facility] Urine clarityOrdered By: Megan Carr on 09-20-2022 Clarity (U) Clear Clear [facility] Urine color determinationOrd ered By: Fer Carr on 09-20-2022 Color (U) Yellow Yellow [facility] Urine glucose detectionOrder ed By: Fer Carr on 09-20-2022 Glucose Ql (U) Normal mg/dl Normal [facility] Urine leukocyte esterase det ection by dipstickOrdered By: Fer Carr on 09-20-2022 Leukocyte esterase Test strip Ql (U) Negative Negative [facility] Urine pHOrdered By: Fer myers on 09-20-2022 pH (U) 6.0 [pH] 5.0 - 8.0 [facility] Urine sediment bacteria coun t by microscopy (number/high power field)Ordered By: Fer Carr on 09-20-2022 Bacteria LM.HPF (Urine sed) [#/Area] 0 /[HPF] None Seen [facility] Urine specific gravity measu rementOrdered By: Fer Carr on 09-20-2022 Specific gravity (U) [Rel density] 1.015 1.002-1.030 [facility] Urobilinogen Auto test strip Ql (U)Ordered By: Fer Carr on 09-20-2022 Urobilinogen Ql (U) Normal mg/dl Normal [facility] Absolute lymphocyte counton 04-17-2022 Lymphocytes Auto (Unsp spec) [#/Vol] 2.00 10*3/uL 0.83-4.51 [facility] Work Phone: Basophil percentageon 2021 Basophils/100 WBC (Bld) 1.0 % 0-1 [facility] Work Phone: Bilirubin [Mass/Vol] 1.10 mg/dL 0.20-1.00 [facility] Work Phone: Comment on above: For patients on eltr ombopag therapy, use of Dimension [place] TBIL is not recommended. Chloride [Moles/Vol] 108 mmol/L 98-107 [facility] Work Phone: Cholesterol [Mass/Vol] 145 mg/dL <200 [facility] Work [place]: Comment on above: <200 mg/dL Desirable 200-240 mg/dL Borderline >240 mg/dL High Risk Eosinophils/100 WBC (Bld) 8.1 % 0-5 [facility] Work Phone: Glucose [Mass/Vol] 103 mg/dL 74-106 [facility] Work Phone: Comment on above: Fasting Glucose resu lt from 100 to 125 mg/dL suggests IMPAIRED HOMEOSTASIS per A.D.A. criteria. Neutrophils (Bld) [#/Vol] 3.0 10*3/uL 2.0-7.7 [facility] Work Phone: Neutrophils/100 WBC (Bld) 48.4 % 47-70 [facility] Work Phone: Potassium [Moles/Vol] 4.7 mmol/L 3.5-5.1 [facility] Work [facility]: Protein [Mass/Vol] 6.7 g/dL 6.4-8.2 [facility] Work Phone: Sodium [Moles/Vol] 141 mmol/L 136-145 [facility] Work Phone: Triglyceride [Mass/Vol] 131 mg/dL <199 [facility] Work Phone: Comment on above: The drugs N-Acetylcy steine and Metamizole may falsely depress this assay.Serum Triglycerides Reference Interval Normal <150 mg/dL Borderline high 150 - 199 mg/dL High 200 - 499 mg/dL Very High > or = 500 mg/dL WBC (Bld) [#/Vol] 6.1 10*3/uL 4.4-11.0 [facility] Work Phone: Blood erythrocytes count (nu mber/volume)on 04-17-2022 RBC (Bld) [#/Vol] 5.25 10*6/uL 4.6-6.2 [facility] Work Phone: Blood hemoglobin measurement (mass/volume)on 04-17-2022 Hemoglobin (Bld) [Mass/Vol] 16.3 g/dL 13.0-16.5 [facility] Work Phone: Blood lymphocytes/100 leukoc yteson 04-17-2022 Lymphocytes/100 WBC (Bld) 32.6 % 19-41 [facility] Work Phone: Blood monocytes/100 leukocyt eson 04-17-2022 Monocytes/100 WBC (Bld) 9.6 % 0-10 [facility] Work Phone: Blood platelet mean volumeon 04-17-2022 Platelet mean volume (Bld) [Entitic vol] 10.9 fL 6.2-12.0 [facility] Work Phone: Determination of erythrocyte mean corpuscular volume (MCV)on 04-17-2022 MCV (RBC) [Entitic vol] 93.1 fL 80-94 [facility] Work Phone: Direct bilirubinon Bilirubin.direct [Mass/Vol] 0.28 mg/dL 0.00-0.30 [facility] Work Phone: Hematocrit Auto (Bld) [Volum e fraction]on 04-17-2022 Hematocrit (Bld) [Volume fraction] 48.9 % 40-54 [facility] Work Phone: Laboratory - Chemistry and C hemistry - challengeon 04-17-2022 ALP [Catalytic activity/Vol] 79 U/L 45-117 [facility] Work Phone: ALT [Catalytic activity/Vol] 50 U/L 16-61 [facility] Work Phone: CO2 [Moles/Vol] 27.0 mmol/L 21.0-32.0 [facility] Work Phone: Globulin (S) [Mass/Vol] 3.0 g/dL 2.2-4.2 [facility] Work Phone: Urea nitrogen/Creatinine [Mass ratio] 15.2 mg/mg 10-20 [facility] Work Phone: Laboratory - Hematology and Cell countson 04-17-2022 Erythrocyte distribution width (RBC) [Entitic vol] 44.7 fL 35.1-43.9 [facility] Work Phone: Erythrocyte distribution width (RBC) [Ratio] 13.0 % 11.6-14.6 [facility] Work Phone: Immature granulocytes/100 WBC (Bld) 0.300 % 0.0-0.9 [facility] Work Phone: Comment on above: IG% - Immature Granu locytes (promyelocytes, myelocytes and metamyelocytes) > 1% indicates that a LEFT SHIFT is Present. MCH (RBC) [Entitic mass] 31.0 pg 27.0-32.0 [facility] Work Phone: Nucleated RBC/100 WBC (Bld) [Ratio] 0 % 0-5 [facility] Work Phone: MCHC Auto (RBC) [Mass/Vol]on 04-17-2022 MCHC (RBC) [Mass/Vol] 33.3 g/dL 32-36 [facility] Work Phone: No Panel Informationon 04-17 Estimated GFR (MDRD) Amer 95 mL/min >60 [facility] Work Phone: Comment on above: GFR Calc Estimated GFR (MDRD) Non-Af Amer 78 mL/min >60 [facility] Work Phone: Comment on above: Non- GFR Calc Platelets bldon 04-17-2022 Platelets (Bld) [#/Vol] 195 10*3/uL 150-450 [facility] Work Phone: Serum or plasma albumin phillip urement (mass/volume)on 04-17-2022 Albumin [Mass/Vol] 3.7 g/dL 3.2-5.0 [facility] Work Phone: Serum or plasma albumin/glob ulin mass ratioon 04-17-2022 Albumin/Globulin [Mass ratio] 1.2 {ratio} 0.9-2.4 [facility] Work Phone: Serum or plasma calcium phillip urement (mass/volume)on 04-17-2022 Calcium [Mass/Vol] 9.3 mg/dL 8.5-10.1 [facility] Work Phone: Serum or plasma cholesterol in HDL measurement (mass/volume)on 04-17-2022 Cholesterol in HDL [Mass/Vol] 45 mg/dL >40 [facility] Work Phone: Comment on above: The drugs N-Acetylcy steine and Metamizole may falsely depress this assay. Reference Range HDL <40 mg/dL Low HDL Cholesterol HDL >or= 60 mg/dL High HDL Cholesterol Serum or plasma cholesterol in VLDL measurement (mass/volume)on 04-17-2022 Cholesterol in VLDL [Mass/Vol] 26 mg/dL 5-40 [facility] Work Phone: Serum or plasma creatinine m easurement (mass/volume)on 04-17-2022 Creatinine [Mass/Vol] 0.99 mg/dL 0.70-1.30 [facility] Work Phone: Comment on above: The validity of the calculated GFR & GFRAA in patients over 70 years has not been determined. Clinical correlation is essential. Serum or plasma low density lipoprotein (LDL) cholesterol measurement (mass/volume)on 04-17-2022 Cholesterol in LDL [Mass/Vol] 74 mg/dL 0-130 [facility] Work Phone: Serum or plasma urea nitroge n measurement (mass/volume)on 04-17-2022 Urea nitrogen [Mass/Vol] 15 mg/dL 7-18 [facility] Work Phone: Thin prep Papanicolaou smear with manual screeningon 04-17-2022 Thin prep Papanicolaou smear with manual screening 36 U/L 15-37 [facility] Work Phone: Thin prep Papanicolaou smear with manual screening 6 5-15 [facility] Work Phone: Absolute lymphocyte counton 01-10-2022 Lymphocytes Auto (Unsp spec) [#/Vol] 2.22 10*3/uL 0.83-4.51 [facility] Work Phone: Basophil percentageon 2021 Basophils/100 WBC (Bld) 0.7 % 0-1 [facility] Work Phone: Chloride [Moles/Vol] 109 mmol/L 98-107 [facility] Work Phone: Eosinophils/100 WBC (Bld) 3.8 % 0-5 [facility] Work Phone: Glucose [Mass/Vol] 118 mg/dL 74-106 [facility] Work Phone: Comment on above: Fasting Glucose resu lt from 100 to 125 mg/dL suggests IMPAIRED HOMEOSTASIS per A.D.A. criteria. Neutrophils (Bld) [#/Vol] 3.7 10*3/uL 2.0-7.7 [facility] Work Phone: Neutrophils/100 WBC (Bld) 54.7 % 47-70 [facility] Work Phone: Potassium [Moles/Vol] 3.7 mmol/L 3.5-5.1 [facility] Work Phone: Sodium [Moles/Vol] 142 mmol/L 136-145 [facility] Work Phone: WBC (Bld) [#/Vol] 6.8 10*3/uL 4.4-11.0 [facility] Work Phone: Blood erythrocytes count (nu mber/volume)on 01-10-2022 RBC (Bld) [#/Vol] 5.04 10*6/uL 4.6-6.2 [facility] Work Phone: Blood hemoglobin measurement (mass/volume)on 01-10-2022 Hemoglobin (Bld) [Mass/Vol] 15.7 g/dL 13.0-16.5 [facility] Work Phone: Blood lymphocytes/100 leukoc yteson 01-10-2022 Lymphocytes/100 WBC (Bld) 32.7 % 19-41 [facility] Work Phone: Blood monocytes/100 leukocyt eson 01-10-2022 Monocytes/100 WBC (Bld) 8.0 % 0-10 [facility] Work Phone: Blood platelet mean volumeon 01-10-2022 Platelet mean volume (Bld) [Entitic vol] 10.5 fL 6.2-12.0 [facility] Work Phone: Determination of erythrocyte mean corpuscular volume (MCV)on 01-10-2022 MCV (RBC) [Entitic vol] 91.9 fL 80-94 [facility] Work Phone: Hematocrit Auto (Bld) [Volum e fraction]on 01-10-2022 Hematocrit (Bld) [Volume fraction] 46.3 % 40-54 [facility] Work Phone: Laboratory - Chemistry and C hemistry - challengeon 01-10-2022 CO2 [Moles/Vol] 26.0 mmol/L 21.0-32.0 [facility] Work Phone: Urea nitrogen/Creatinine [Mass ratio] 16.7 mg/mg 10-20 [facility] Work Phone: Laboratory - Hematology and Cell countson 01-10-2022 Erythrocyte distribution width (RBC) [Entitic vol] 43.2 fL 35.1-43.9 [facility] Work Phone: Erythrocyte distribution width (RBC) [Ratio] 13.0 % 11.6-14.6 [facility] Work Phone: Immature granulocytes/100 WBC (Bld) 0.100 % 0.0-0.9 [facility] Work Phone: Comment on above: IG% - Immature Granu locytes (promyelocytes, myelocytes and metamyelocytes) > 1% indicates that a LEFT SHIFT is Present. MCH (RBC) [Entitic mass] 31.2 pg 27.0-32.0 [facility] Work Phone: Nucleated RBC/100 WBC (Bld) [Ratio] 0 % 0-5 [facility] Work Phone: MCHC Auto (RBC) [Mass/Vol]on 01-10-2022 MCHC (RBC) [Mass/Vol] 33.9 g/dL 32-36 [facility] Work Phone: No Panel Informationon 01-10 Estimated Creatinine Clearance Calc 65.86 ml/min [facility] Work Phone: Estimated GFR (MDRD) Amer 86 mL/min >60 [facility] Work Phone: Comment on above: GFR Calc Estimated GFR (MDRD) Non-Af Amer 71 mL/min >60 [facility] Work Phone: Comment on above: Non- GFR Calc Troponin I High Sensitivity 12 pg/mL 3.0-78.0 [facility] Work Phone: Comment on above: Please Note: New Afsaneh t Units and Gender Specific Reference Ranges. For more information see Policy Stat Procedure [place] High Sensitivity Troponin (TNIH) and attachments. Platelets bldon 01-10-2022 Platelets (Bld) [#/Vol] 177 10*3/uL 150-450 [facility] Work Phone: Serum or plasma calcium phillip urement (mass/volume)on 01-10-2022 Calcium [Mass/Vol] 9.1 mg/dL 8.5-10.1 [facility] Work Phone: Serum or plasma creatinine m easurement (mass/volume)on 01-10-2022 Creatinine [Mass/Vol] 1.08 mg/dL 0.70-1.30 [facility] Work Phone: Comment on above: The validity of the calculated GFR & GFRAA in patients over 70 years has not been determined. Clinical correlation is essential. Serum or plasma urea nitroge n measurement (mass/volume)on 01-10-2022 Urea nitrogen [Mass/Vol] 18 mg/dL 7-18 [facility] Work Phone: Thin prep Papanicolaou smear with manual screeningon 01-10-2022 Thin prep Papanicolaou smear with manual screening 7 5-15 [facility] Work Phone: Absolute lymphocyte counton 11-14-2021 Lymphocytes Auto (Unsp spec) [#/Vol] 2.09 10*3/uL 0.83-4.51 [facility] Work Phone: Basophil percentageon 2021 Basophils/100 WBC (Bld) 1.1 % 0-1 [facility] Work Phone: Chloride [Moles/Vol] 108 mmol/L 98-107 [facility] Work Phone: Eosinophils/100 WBC (Bld) 5.3 % 0-5 [facility] Work Phone: Glucose [Mass/Vol] 112 mg/dL 74-106 [facility] Work Phone: Comment on above: Fasting Glucose resu lt from 100 to 125 mg/dL suggests IMPAIRED HOMEOSTASIS per A.D.A. criteria. Neutrophils (Bld) [#/Vol] 3.6 10*3/uL 2.0-7.7 [facility] Work Phone: Neutrophils/100 WBC (Bld) 54.7 % 47-70 [facility] Work Phone: Potassium [Moles/Vol] 4.2 mmol/L 3.5-5.1 [facility] Work Phone: Sodium [Moles/Vol] 140 mmol/L 136-145 [facility] Work Phone: WBC (Bld) [#/Vol] 6.6 10*3/uL 4.4-11.0 [facility] Work Phone: Blood erythrocytes count (nu mber/volume)on 11-14-2021 RBC (Bld) [#/Vol] 5.13 10*6/uL 4.6-6.2 [facility] Work Phone: Blood hemoglobin measurement (mass/volume)on 11-14-2021 Hemoglobin (Bld) [Mass/Vol] 16.0 g/dL 13.0-16.5 [facility] Work Phone: Blood lymphocytes/100 leukoc yteson 11-14-2021 Lymphocytes/100 WBC (Bld) 31.8 % 19-41 [facility] Work Phone: Blood monocytes/100 leukocyt eson 11-14-2021 Monocytes/100 WBC (Bld) 6.8 % 0-10 [facility] Work Phone: Blood platelet mean volumeon 11-14-2021 Platelet mean volume (Bld) [Entitic vol] 10.6 fL 6.2-12.0 [facility] Work Phone: Determination of erythrocyte mean corpuscular volume (MCV)on 11-14-2021 MCV (RBC) [Entitic vol] 92.4 fL 80-94 [facility] Work Phone: Hematocrit Auto (Bld) [Volum e fraction]on 11-14-2021 Hematocrit (Bld) [Volume fraction] 47.4 % 40-54 [facility] Work Phone: INR in Blood by Coagulation assayon 11-14-2021 INR Coag (Bld) [Relative time] 1.0 {INR} [facility] Work Phone: Laboratory - Chemistry and C hemistry - challengeon 11-14-2021 CO2 [Moles/Vol] 27.0 mmol/L 21.0-32.0 [facility] Work Phone: Urea nitrogen/Creatinine [Mass ratio] 13.2 mg/mg 10-20 [facility] Work Phone: Laboratory - Coagulationon 0 11-14-2021 aPTT Coag (Bld) [Time] 27.0 s 24.1-[facility].2 [facility] [place]: PT Coag (PPP) [Time] 13.3 s 11.7-14.[address] [facility] [place]: Laboratory - Hematology and Cell countson 11-14-2021 Erythrocyte distribution width (RBC) [Entitic vol] 44.6 fL 35.1-43.9 [facility] Work Phone: Erythrocyte distribution width (RBC) [Ratio] 13.2 % 11.6-14.6 [facility] Work Phone: Immature granulocytes/100 WBC (Bld) 0.300 % 0.0-0.9 [facility] Work Phone: Comment on above: IG% - Immature Granu locytes (promyelocytes, myelocytes and metamyelocytes) > 1% indicates that a LEFT SHIFT is Present. MCH (RBC) [Entitic mass] 31.2 pg 27.0-32.0 [facility] Work Phone: Nucleated RBC/100 WBC (Bld) [Ratio] 0 % 0-5 [facility] Work Phone: MCHC Auto (RBC) [Mass/Vol]on 11-14-2021 MCHC (RBC) [Mass/Vol] 33.8 g/dL 32-36 [facility] Work Phone: No Panel Informationon 11-14 Estimated GFR (MDRD) Amer 88 mL/min >60 [facility] Work Phone: Comment on above: GFR Calc Estimated GFR (MDRD) Non-Af Amer 73 mL/min >60 [facility] Work Phone: Comment on above: Non- GFR Calc Platelets bldon 11-14-2021 Platelets (Bld) [#/Vol] 212 10*3/uL 150-450 [facility] Work Phone: Serum or plasma calcium phillip urement (mass/volume)on 11-14-2021 Calcium [Mass/Vol] 8.8 mg/dL 8.5-10.1 [facility] Work Phone: Serum or plasma creatinine m easurement (mass/volume)on 11-14-2021 Creatinine [Mass/Vol] 1.06 mg/dL 0.70-1.30 [facility] Work Phone: Comment on above: The validity of the calculated GFR & GFRAA in patients over 70 years has not been determined. Clinical correlation is essential. Serum or plasma urea nitroge n measurement (mass/volume)on 11-14-2021 Urea nitrogen [Mass/Vol] 14 mg/dL 7-18 [facility] Work Phone: Thin prep Papanicolaou smear with manual screeningon 11-14-2021 Thin prep Papanicolaou smear with manual screening 5 5-15 [facility] Work Phone: Basophil percentageon 2021 Bilirubin [Mass/Vol] 1.30 mg/dL 0.20-1.00 [facility] Work Phone: Comment on above: For patients on eltr ombopag therapy, use of Dimension [place] TBIL is not recommended. Cholesterol [Mass/Vol] 141 mg/dL <200 [facility] Work Phone: Comment on above: <200 mg/dL Desirable 200-240 mg/dL Borderline >240 mg/dL High Risk Protein [Mass/Vol] 7.0 g/dL 6.4-8.2 [facility] Work Phone: Triglyceride [Mass/Vol] 110 mg/dL <[address] [facility] Work Phone: Comment on above: The drugs N-Acetylcy steine and Metamizole may falsely depress this assay.Serum Triglycerides Reference Interval Normal <150 mg/dL Borderline high 150 - 199 mg/dL High 200 - 499 mg/dL Very High > or = 500 mg/dL Direct bilirubinon 2 Bilirubin.direct [Mass/Vol] 0.32 mg/dL 0.00-0.30 [facility] Work Phone: Laboratory - Chemistry and C hemistry - challengeon 08-14-2021 ALP [Catalytic activity/Vol] 78 U/L 45-117 [facility] Work Phone: ALT [Catalytic activity/Vol] 47 U/L 16-61 [facility] Work Phone: Globulin (S) [Mass/Vol] 3.0 g/dL 2.2-4.2 [facility] Work Phone: Serum or plasma albumin phillip urement (mass/volume)on 08-14-2021 Albumin [Mass/Vol] 4.0 g/dL 3.2-5.0 [facility] Work Phone: Serum or plasma cholesterol in HDL measurement (mass/volume)on 08-14-2021 Cholesterol in HDL [Mass/Vol] 44 mg/dL >40 [facility] Work Phone: Comment on above: The drugs N-Acetylcy steine and Metamizole may falsely depress this assay. Reference Range HDL <40 mg/dL Low HDL Cholesterol HDL >or= 60 mg/dL High HDL Cholesterol Serum or plasma cholesterol in VLDL measurement (mass/volume)on 08-14-2021 Cholesterol in VLDL [Mass/Vol] 22 mg/dL 5-40 [facility] Work Phone: Serum or plasma low density lipoprotein (LDL) cholesterol measurement (mass/volume)on 08-14-2021 Cholesterol in LDL [Mass/Vol] 75 mg/dL 0-130 [facility] Work Phone: Thin prep Papanicolaou smear with manual screeningon 08-14-2021 Thin prep Papanicolaou smear with manual screening 36 U/L 15-37 [facility] Work Phone: Clinical Summary: HMSPatient IDon 03-25-2019 [facility] Work Phone: Office Visit: New Complaint, Rm: 42on 03-25-2019 NEGATED: Highlighted rowMRI (magnetic resonance imaging) history of the cervical spine on 12/14/2018 at [facility] Work Phone: NEGATED: Highlighted rowxray history of the cervical spine on 11/04/2018 at [facility] Work Phone: SURGon 04-24-2018 SURG Patient: ARTURO CORONADO P SPECIMEN : [id number] Collection Date: 04/24/18 Received: 04/27/18 Status: DANILO Lozada Dr.: Abel Dixon MD Ph# Othr. Dr.: [facility] SURGICAL SUITESMaterial for Examination: A GIANT CELL [...] Chung Frye M.D.COPIES TO: Abel Dixon MD [facility]igned Verified/Reviewed by THERESA LUO MD 04/30/18 This dictation was created using voice recognition software. Phonetic and/or minor grammatical errors may exist. [facility] NAME: ARTURO CORONADO Pathology and Laboratory Medicine UNIT#: [id number] LOC: [facility] Electrical Engineering Technician: Rosario Ennis M.D. ROOM/BED: [facility] : 49 AGE/SEX: 73/M ORD.DR. Dixon,Abel Perkins MD END OF REPORT [facility] Lab Report: Lipid Profileon 04-29-2017 Cholesterol 157 mg/dL Invalid Interpretation Code 200 [facility] Work Phone: HDL Cholesterol 47 mg/dL Invalid Interpretation Code [facility] Work Phone: LDL Cholesterol 95 mg/dL Invalid Interpretation Code 0-130 [facility] Work Phone: Triglyceride 77 mg/dL Invalid Interpretation Code [facility] Work Phone: very low density lipoproteins 15 mg/dL Invalid Interpretation Code 5-40 [facility] Work Phone: Lab Report: Liver Profileon 04-29-2017 Alanine aminotransferase (ALT) 29 U/L Invalid Interpretation Code 12-78 [facility] Work Phone: Albumin 4.1 g/dL Invalid Interpretation Code 3.4-5.0 [facility] Work Phone: Alkaline phosphatase (ALP) 70 U/L Invalid Interpretation Code 45-117 [facility] Work Phone: Aspartate aminotransferase (AST) 29 U/L Invalid Interpretation Code 15-37 [facility] Work Phone: Bilirubin (direct) 0.26 mg/dL Invalid Interpretation Code 0.00-0.30 [facility] Work Phone: Bilirubin (total) 1.10 mg/dL High 0.20-1.00 [facility] Work Phone: Globulin 3.2 g/dL Invalid Interpretation Code 2.2-4.2 [facility] Work Phone: Protein 7.3 g/dL Invalid Interpretation Code 6.4-8.2 [facility] Work Phone: Office Visit: [facility] 11-09-19 17 Documentation of current medications (procedure) Done Invalid Interpretation Code [facility] Work Phone: Fall risk assessment No Invalid Interpretation Code [facility] Work Phone: Protein mass conc Done [facility] Work Phone: Lab Report: Lipid Profileon 10-18-2016 Cholesterol 139 mg/dL Invalid Interpretation Code 200 [facility] Work Phone: HDL Cholesterol 45 mg/dL Invalid Interpretation Code [facility] Work Phone: LDL Cholesterol 77 mg/dL Invalid Interpretation Code 0-130 [facility] Work Phone: Triglyceride 87 mg/dL Invalid Interpretation Code [facility] Work Phone: very low density lipoproteins 17 mg/dL Invalid Interpretation Code 5-40 [facility] Work Phone: Lab Report: Liver Profileon 10-18-2016 Alanine aminotransferase (ALT) 30 U/L Invalid Interpretation Code 12-78 [facility] Work Phone: Albumin 3.9 g/dL Invalid Interpretation Code 3.4-5.0 [employer] Phone: Alkaline phosphatase (ALP) 82 U/L Invalid Interpretation Code 45-117 [facility] Work Phone: ALP enzyme act/vol (Bld) 82 U/L 45-117 [facility] Work Phone: Aspartate aminotransferase (AST) 28 U/L Invalid Interpretation Code 15-37 [facility] Work Phone: Bilirubin (direct) 0.26 mg/dL Invalid Interpretation Code 0.00-0.30 [facility] Work Phone: Bilirubin (total) 1.10 mg/dL High 0.20-1.00 [facility] Work Phone: Globulin 3.1 g/dL Invalid Interpretation Code 2.3-3.5 [facility] Work Phone: Globulin mass conc (S) 3.1 g/dL 2.3-3.5 [facility] Work Phone: Protein 7.0 g/dL Invalid Interpretation Code 6.4-8.2 [facility] Work Phone: Lab Report: Lipid Profileon 04-11-2016 Cholesterol 144 mg/dL Invalid Interpretation Code 200 [facility] [place] Work Phone: HDL Cholesterol 43 mg/dL Invalid Interpretation Code [facility] [place] Work Phone: LDL Cholesterol 82 mg/dL Invalid Interpretation Code 0-130 [facility] [place] Work Phone: Triglyceride 93 mg/dL Invalid Interpretation Code [facility] [place] Work Phone: very low density lipoproteins 19 mg/dL Invalid Interpretation Code 5-40 [facility] [place] Work Phone: Lab Report: Liver Profileon 04-11-2016 Alanine aminotransferase (ALT) 36 U/L Invalid Interpretation Code 12-78 [facility] [place] Work Phone: Albumin 3.8 g/dL Invalid Interpretation Code 3.4-5.0 [facility] [place] Work Phone: Alkaline phosphatase (ALP) 73 U/L Invalid Interpretation Code 45-117 [facility] [place] Work Phone: Aspartate aminotransferase (AST) 32 U/L Invalid Interpretation Code 15-37 [facility] [place] Work Phone: Bilirubin (direct) 0.23 mg/dL Invalid Interpretation Code 0.00-0.30 [facility] [place] Work Phone: Bilirubin (total) 1.20 mg/dL High 0.20-1.00 [facility] Work Phone: Globulin 3.1 g/dL Invalid Interpretation Code 2.3-3.5 [facility] [place] Work Phone: Protein 6.9 g/dL Invalid Interpretation Code 6.4-8.2 [facility] [place] Work Phone: Office Visiton 10-24-2015 Documentation of current medications (procedure) Done Invalid Interpretation Code 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 [place] Work Phone: Office Visiton 04-21-2015 Tobacco smoking status NHIS Tobacco smoking status NHIS Invalid Interpretation Code [facility] Work Phone: Tobacco smoking status AKIS Former smoker [facility] Work Phone: Tobacco use [facility] Former smoker Invalid Interpretation Code [facility] [place] Work Phone: Replaced Document: Mid[employer] E CG Observationson 04-21-2015 EKG QRS axis 63 deg [facility] Group Work Phone: electrocardiogram interpretation Sinus Bradycardia WITHIN NORMAL LIMITS Invalid Interpretation Code [facility] ([place], [place]) [facility] Work Phone: GE use only - for Link[employer] import when terms are not otherwise specified 405 ms Invalid Interpret[address] Code [facility] ([place] [place] Work Phone: Interpretation Sinus Bradycardia WITHIN NORMAL LIMITS [facility] Work Phone: P [facility] 66 deg [facility] Work Phone: P wave axis, electrocardiogram 66 deg Invalid Interpretation Code [facility] ([place] [place] Work Phone: NE Interval 202 ms [facility] Work Phone: NE interval, electrocardiogram 202 [address] Code [facility] ([place] [place] Work Phone: Pulse (Heart Rate) 56 /min Invalid Interpretation Code [facility] ([place] [place] Work Phone: QRS axis, electrocardiogram 63 deg Invalid Interpretation Code [facility] ([place] [place] Work Phone: QRS Duration 94 ms [facility] Work Phone: QRS duration, electrocardiogram 94 ms Invalid Interpretation Code [facility] ([place] [place] Work Phone: QT Interval new path ms [facility] Work Phone: QT interval, electrocardiogram new path ms Invalid Interpretation Code [facility] ([place] [place] Work Phone: QTc Nava 405 ms [facility] Work Phone: T [facility] 55 deg [facility] Work Phone: T wave axis, electrocardiogram 55 deg Invalid Interpretation Code [facility] ([place], [place] Work Phone: Office Visiton 04-05-2014 cardiac risk group C Invalid Interpretation Code [facility] ([place], [place] Work Phone: General cardiovascular disease 10Y risk [#] Milton.D'Agostino N/A Invalid Interpretation Code [facility] ([place], [place] Work Phone: Lab Report: TSHon 03-26-2014 Thyroid stimulating hormone (TSH) 1.47 u[iU]/mL Normal 0.358-3.74 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 ([place] [place] Work Phone: Chloride 107 mmol/L Invalid Interpretation Code [facility] ([place] [place] Work Phone: CO2 26.0 mmol/L Invalid Interpretation Code [facility] ([place] [place] Work Phone: CO2 ppres (BldV) 26.0 mmol/L [facility] Work Phone: Creatinine 1.0 mg/dL Invalid Interpretation Code [facility] ([place] [place] Work Phone: Hematocrit (HCT) 44.4 % Invalid Interpretation Code [facility] ([place] [place] Work Phone: Hematocrit Volume Fraction (Bld) 44.4 % [facility] Work Phone: Hemoglobin (HGB) 15.3 g/dL Invalid Interpretation Code [facility] ([place] [place] Work Phone: Platelets 186 10*3/mm3 Invalid Interpretation Code [facility] ([place], [place] Work Phone: Platelets #/vol (Bld) 186 10*3/mm3 [facility] Work Phone: Potassium 4.1 mmol/L Invalid Interpretation Code [facility] ([place] [place] Work Phone: Sodium 139 mmol/L Invalid Interpretation Code [facility] ([place] [place] Work Phone: Urea nitrogen 17 mg/dL Invalid Interpretation Code [facility] ([place] [place] Work Phone: WBC #/vol (Bld) 7.5 10*3/uL [facility] Work Phone: WBC (Leukocytes) 7.5 10*3/uL Invalid Interpretation Code [facility] ([place] [place] Work Phone: Replaced Document: BMPon Glucose 90 mg/dL Normal 70-110 [facility] ([place] [place] Work Phone: Glucose mass conc 90 mg/dL Normal 70-110 [facility] Work Phone: Lab Report: CBCon 03-23-2013 Erythrocytes (RBC) 4.77 10*6/uL Normal 4.6-6.2 [facility] ([place] [place] Work Phone: RBC #/vol (Bld) 4.77 10*6/uL Normal 4.6-6.2 [facility] Work Phone: Lab Report: PTon 03-23-2013 INR Coag RelTime (PPP) 1.0 {INR} Normal [facility] Work Phone: INR in blood by coagulation 1.0 {INR} Normal [facility] ([place] [place] Work Phone: prothrombin time, actual/normal, ratio 12.8 SECONDS Normal 11.9-14.4 [facility] ([place] [place] Work Phone: PTP 12.8 SECONDS Normal 11.9-14.4 [facility] Work Phone: Replaced Document: Luis SEBASTIAN Observationson 01-02-2012 Pulse (Heart Rate) 423 ms Invalid Interpret[address] Code 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 ([place] [place] Work Phone: Anion gap molar conc 10 mmol/L [facility] Work Phone: BUN/Creatinine Ratio 15 mg/mg Invalid Interpretation Code [facility] ([place] [place] Work Phone: MCH 31.8 pg Invalid Interpretation Code [facility] ([place] [place] Work Phone: MCH Entitic mass (RBC) 31.8 pg [facility] Work Phone: MCV 92.2 fL Invalid Interpretation Code [facility] ([place] [place] Work Phone: MCV Entitic volume (RBC) 92.2 fL [facility] Work Phone: Vital Signs Date Time Vital Sign Value Performing Clinician Facility 01-14-2025 16:35-0400 Body temperature 98.3 [degF] Dr. Gauri Vila DO Work Phone: [facility] 01-14-2025 16:35-0400 Diastolic blood pressure 70 mm[Hg] Dr. Gauri Vila DO Work Phone: [facility] 01-14-2025 16:35-0400 Heart rate 88 /min Dr. Gauri Vila DO Work Phone: [facility] 01-14-2025 16:35-0400 Respiratory rate 16 /min Dr. Gauri Vila DO Work Phone: [facility] 01-14-2025 16:35-0400 SaO2% (BldA) [Mass fraction] 98 % Dr. Gauri Vila DO Work Phone: [facility] 01-14-2025 16:35-0400 Systolic blood pressure 138 mm[Hg] Dr. Gauri Vila DO Work Phone: [facility] 01-14-2025 14:04-0400 Body height 180.[address] Gauri Vila DO Work Phone: [facility] 01-13-2025 00:12-0400 Body temperature 98.6 [degF] Dr. Gauri Vila DO Work Phone: [facility] 01-13-2025 00:12-0400 Diastolic blood pressure 80 mm[Hg] Dr. Gauri Vila DO Work Phone: [facility] 01-13-2025 00:12-0400 Heart rate 70 /min Dr. Gauri Vila DO Work Phone: [facility] 01-13-2025 00:12-0400 Respiratory rate 18 /min Dr. Gauri Vila DO Work Phone: [facility] 01-13-2025 00:12-0400 SaO2% (BldA) [Mass fraction] 99 % Dr. Gauri Vila DO Work Phone: [facility] 01-13-2025 00:12-0400 Systolic blood pressure 145 mm[Hg] Dr. Gauri Vila DO Work Phone: [facility] 01-12-2025 21:06-0400 Body height 180.[address] Gauri Vila DO Work Phone: [facility] 01-12-2025 21:06-0400 Body mass index (BMI) [Ratio] 25.2 kg/m2 Dr. Gauri Vila DO Work Phone: [facility] 01-12-2025 21:06-0400 Body weight 82.[address] Gauri Vila DO Work Phone: [facility] 11-10-2024 14:58-0400 Body height 180.[address] Gauri Vila DO Work Phone: [facility] 11-10-2024 14:58-0400 Body mass index (BMI) [Ratio] 24.3 kg/m2 Dr. Gauri Vila DO Work Phone: [facility] 11-10-2024 14:58-0400 Body weight 78.[address] Gauri Vila DO Work Phone: [facility] 11-10-2024 14:58-0400 Diastolic blood pressure 75 mm[Hg] Dr. Gauri Vila DO Work Phone: [facility] 11-10-2024 14:58-0400 Heart rate 55 /min Dr. Gauri Vila DO Work Phone: [facility] 11-10-2024 14:58-0400 Respiratory rate 16 /min Dr. Gauri Vila DO Work Phone: [facility] 11-10-2024 14:58-0400 Systolic blood pressure 123 mm[Hg] Dr. Gauri Vila DO Work Phone: [facility] 10-25-2024 13:37-0400 Body height 180.[address] Gauri Vila DO Work Phone: [facility] 10-25-2024 13:37-0400 Body mass index (BMI) [Ratio] 24.4 kg/m2 Dr. Gauri Vila DO Work Phone: [facility] 10-25-2024 13:37-0400 Body weight 79.[address] Gauri Vila DO Work Phone: [facility] 10-12-2024 14:20-0400 Body height 180.[address] Gauri Vila DO Work Phone: [facility] 10-12-2024 14:20-0400 Body mass index (BMI) [Ratio] 24.5 kg/m2 Dr. Gauri Vila DO Work Phone: [facility] 10-12-2024 14:20-0400 Body weight [address] Gauri Vila DO Work Phone: [facility] 09-01-2024 11:08-0400 Body mass index (BMI) [Ratio] 25.1 kg/m2 Dr. Gauri Vila DO Work Phone: [facility] 09-01-2024 11:08-0400 Body temperature 98.2 [degF] Dr. Gauri Vila DO Work Phone: [facility] 09-01-2024 11:08-0400 Body weight 81.[address] Gauri Vila DO Work Phone: [facility] 09-01-2024 11:08-0400 Diastolic blood pressure 66 mm[Hg] Dr. Gauri Vila DO Work Phone: [facility] 09-01-2024 11:08-0400 Heart rate 58 /min Dr. Gauri Vila DO Work Phone: [facility] 09-01-2024 11:08-0400 Respiratory rate 18 /min Dr. Gauri Vila DO Work Phone: [facility] 09-01-2024 11:08-0400 SaO2% (BldA) [Mass fraction] 96 % Dr. Gauri Vila DO Work Phone: [facility] 09-01-2024 11:08-0400 Systolic blood pressure 118 mm[Hg] Dr. Gauri Vila DO Work Phone: [facility] 07-21-2024 15:27-0400 Body height 180.[address] Gauri Vila DO Work Phone: [facility] 07-21-2024 15:27-0400 Body mass index (BMI) [Ratio] 24.5 kg/m2 Dr. Gauri Vila DO Work Phone: [facility] 07-21-2024 15:27-0400 Body temperature 98.2 [degF] Dr. Gauri Vila DO Work Phone: [facility] 07-21-2024 15:27-0400 Body weight 79.[address] Gauri Vila DO Work Phone: [facility] 07-21-2024 15:27-0400 Diastolic blood pressure 78 mm[Hg] Dr. Gauri Vila DO Work Phone: [facility] 07-21-2024 15:27-0400 Heart rate 67 /min Dr. Gauri Vila DO Work Phone: [facility] 07-21-2024 15:27-0400 Respiratory rate 18 /min Dr. Gauri Vila DO Work Phone: [facility] 07-21-2024 15:27-0400 SaO2% (BldA) [Mass fraction] 97 % Dr. Gauri Vila DO Work Phone: [facility] 07-21-2024 15:27-0400 Systolic blood pressure 142 mm[Hg] Dr. Gauri Vila DO Work Phone: [facility] 07-07-2024 08:53-0500 Body mass index (BMI) [Ratio] 25.1 kg/m2 Dr. Gauri Vila DO Work Phone: [facility] 07-07-2024 08:53-0500 Body weight 81.[address] Gauri Vila DO Work Phone: [facility] 07-07-2024 08:53-0500 Diastolic blood pressure 78 mm[Hg] Dr. Gauri Vila DO Work Phone: [facility] 07-07-2024 08:53-0500 Heart rate 61 /min Dr. Gauri Vila DO Work Phone: [facility] 07-07-2024 08:53-0500 Respiratory rate 18 /min Dr. Gauri Vila DO Work Phone: [facility] 07-07-2024 08:53-0500 SaO2% (BldA) [Mass fraction] 94 % Dr. Gauri Vila DO Work Phone: [facility] 07-07-2024 08:53-0500 Systolic blood pressure 125 mm[Hg] Dr. Gauri Vila DO Work Phone: [facility] 04-14-2024 16:23-0500 Body height 180.[address] Gauri Vila DO Work Phone: [facility] 04-14-2024 16:23-0500 Body mass index (BMI) [Ratio] 25.1 kg/m2 Dr. Gauri Vila DO Work Phone: [facility] 04-14-2024 16:23-0500 Body temperature 97.3 [degF] Dr. Gauri Vila DO Work Phone: [facility] 04-14-2024 16:23-0500 Body weight 81.[address] Gauri Vila DO Work Phone: [facility] 04-14-2024 16:23-0500 Diastolic blood pressure 70 mm[Hg] Dr. Gauri Vila DO Work Phone: [facility] 04-14-2024 16:23-0500 Heart rate 71 /min Dr. Gauri Vila DO Work Phone: [facility] 04-14-2024 16:23-0500 Respiratory rate 16 /min Dr. Gauri Vila DO Work Phone: [facility] 04-14-2024 16:23-0500 Systolic blood pressure 118 mm[Hg] Dr. Gauri Vila DO Work Phone: [facility] 04-03-2024 13:28-0500 Body temperature 97.9 [degF] Dr. Gauri Vila DO Work Phone: [facility] 04-03-2024 13:28-0500 Diastolic blood pressure 81 mm[Hg] Dr. Gauri Vila DO Work Phone: [facility] 04-03-2024 13:28-0500 Heart rate 78 /min Dr. Gauri Vila DO Work Phone: [facility] 04-03-2024 13:28-0500 Respiratory rate 16 /min Dr. Gauri Vila DO Work Phone: [facility] 04-03-2024 13:28-0500 SaO2% (BldA) [Mass fraction] 99 % Dr. Gauri Vila DO Work Phone: [facility] 04-03-2024 13:28-0500 Systolic blood pressure 139 mm[Hg] Dr. Gauri Vila DO Work Phone: [facility] 04-03-2024 10:15-0500 Body mass index (BMI) [Ratio] 26.1 kg/m2 Dr. Gauri Vila DO Work Phone: [facility] 04-03-2024 10:15-0500 Body weight 84.[address] Gauri Vila DO Work Phone: [facility] 04-03-2024 09:46-0500 Body temperature 97.5 [degF] Mandy Athy PA-C Work Phone: [facility] 04-03-2024 09:46-0500 Body weight 81 kg Mandy Athy PA-C Work Phone: [facility] 04-03-2024 09:46-0500 Diastolic blood pressure 80 mm[Hg] Mandy Athy PA-C Work Phone: [facility] 04-03-2024 09:46-0500 Heart rate 67 /min Mandy Athy PA-C Work Phone: [facility] 04-03-2024 09:46-0500 Respiratory rate 20 /min Mandy Athy PA-C Work Phone: [facility] 04-03-2024 09:46-0500 SaO2% (BldA) [Mass fraction] 98 % Mandy Athy PA-C Work Phone: [facility] 04-03-2024 09:46-0500 Systolic blood pressure 110 mm[Hg] Mandy Athy PA-C Work Phone: [facility] 07-15-2023 14:00-0400 Diastolic blood pressure 96 mm[Hg] Bib Franz MD Work Phone: [facility] 07-15-2023 14:00-0400 Heart rate 54 /min Bib Franz MD Work Phone: [facility] 07-15-2023 14:00-0400 Systolic blood pressure 167 mm[Hg] Bib Franz MD Work Phone: [facility] 07-15-2023 13:47-0400 Body mass index (BMI) [Ratio] 24.13 kg/m2 Bib Franz MD Work Phone: [facility] 07-15-2023 13:47-0400 Body weight 78.47 kg Bib Franz MD Work Phone: [facility] 07-04-2023 13:44-0500 Body height 180.[address] Gauri Vila Work Phone: [facility] 07-04-2023 13:44-0500 Body mass index (BMI) [Ratio] 24 kg/m2 Dr. Gauri Vila Work Phone: [facility] 07-04-2023 13:44-0500 Body weight 78.[address] Gauri Vila Work Phone: [facility] 07-04-2023 13:44-0500 Diastolic blood pressure 97 mm[Hg] Dr. Gauri Vila Work Phone: [facility] 07-04-2023 13:44-0500 Heart rate 55 /min Dr. Gauri Vila Work Phone: [facility] 07-04-2023 13:44-0500 Respiratory rate 16 /min Dr. Gauri Vila Work Phone: [facility] 07-04-2023 13:44-0500 Systolic blood pressure 160 mm[Hg] Dr. Gauri Vila Work Phone: [facility] 05-12-2023 15:13-0500 Body temperature 97.8 [degF] Dr. Gauri Vila Work Phone: [facility] 05-12-2023 15:13-0500 Diastolic blood pressure 90 mm[Hg] Dr. Gauri Vila Work Phone: [facility] 05-12-2023 15:13-0500 Heart rate 65 /min Dr. Gauri Vila Work Phone: [facility] 05-12-2023 15:13-0500 Respiratory rate 12 /min Dr. Gauri Vila Work Phone: [facility] 05-12-2023 15:13-0500 SaO2% (BldA) [Mass fraction] 97 % Dr. Gauri Vila Work Phone: [facility] 05-12-2023 15:13-0500 Systolic blood pressure 146 mm[Hg] Dr. Gauri Vila Work Phone: [facility] 05-07-2023 11:21-0500 Body height 180.[address] Gauri Vila Work Phone: [facility] 05-07-2023 11:21-0500 Body mass index (BMI) [Ratio] 24.3 kg/m2 Dr. Gauri Vila Work Phone: [facility] 05-07-2023 11:21-0500 Body temperature 98.1 [degF] Dr. Gauri Vila Work Phone: [facility] 05-07-2023 11:21-0500 Body weight 78.[address] Gauri Vila Work Phone: [facility] 05-07-2023 11:21-0500 Diastolic blood pressure 86 mm[Hg] Dr. Gauri Vila Work Phone: [facility] 05-07-2023 11:21-0500 Heart rate 59 /min Dr. Gauri Vila Work Phone: [facility] 05-07-2023 11:21-0500 SaO2% (BldA) [Mass fraction] 98 % Dr. Gauri Vila Work Phone: [facility] 05-07-2023 11:21-0500 Systolic blood pressure 164 mm[Hg] Dr. Gauri Vila Work Phone: [facility] 04-24-2023 13:57-0500 Body mass index (BMI) [Ratio] 24.1 kg/m2 Dr. Gauri Vila Work Phone: [facility] 04-24-2023 13:57-0500 Body temperature 99.8 [degF] Dr. Gauri Vila Work Phone: [facility] 04-24-2023 13:57-0500 Body weight 78.[address] Gauri Vila Work Phone: [facility] 04-24-2023 13:57-0500 Diastolic blood pressure 81 mm[Hg] Dr. Gauri Vila Work Phone: [facility] 04-24-2023 13:57-0500 Heart rate 75 /min Dr. Gauri Vila Work Phone: [facility] 04-24-2023 13:57-0500 Respiratory rate 16 /min Dr. Gauri Vila Work Phone: [facility] 04-24-2023 13:57-0500 SaO2% (BldA) [Mass fraction] 94 % Dr. Gauri Vila Work Phone: [facility] 04-24-2023 13:57-0500 Systolic blood pressure 145 mm[Hg] Dr. Gauri Vila Work Phone: [facility] 01-28-2023 14:07-0400 Body mass index (BMI) [Ratio] 23.7 kg/m2 Dr. Gauri Vila Work Phone: [facility] 01-28-2023 14:07-0400 Body temperature 98.2 [degF] Dr. Gauri Vila Work Phone: [facility] 01-28-2023 14:07-0400 Body weight 77.[address] Gauri Vila Work Phone: [facility] 01-28-2023 14:07-0400 Diastolic blood pressure 90 mm[Hg] Dr. Gauri Vila Work Phone: [facility] 01-28-2023 14:07-0400 Heart rate 56 /min Dr. Gauri Vila Work Phone: [facility] 01-28-2023 14:07-0400 Respiratory rate 16 /min Dr. Gauri Vila Work Phone: [facility] 01-28-2023 14:07-0400 SaO2% (BldA) [Mass fraction] 98 % Dr. Gauri Vila Work Phone: [facility] 01-28-2023 14:07-0400 Systolic blood pressure 142 mm[Hg] Dr. Gauri Vila Work Phone: [facility] 09-20-2022 15:06-0400 Diastolic blood pressure 89 mm[Hg] [facility] 09-20-2022 15:06-0400 Heart rate 56 /min [facility] 09-20-2022 15:06-0400 Respiratory rate 16 /min [facility] 09-20-2022 15:06-0400 SaO2% (BldA) [Mass fraction] 98 % [facility] 09-20-2022 15:06-0400 Systolic blood pressure 157 mm[Hg] [facility] 09-20-2022 13:06-0400 Body height 180.34 cm [facility] 09-20-2022 13:06-0400 Body mass index (BMI) [Ratio] 24.7 kg/m2 [facility] 09-20-2022 13:06-0400 Body temperature 98.4 [degF] [facility] 09-20-2022 13:06-0400 Body weight 80.54 kg [facility] 04-10-2022 15:28-0500 Body height 182.[address] Gauri Vila Work Phone: [facility] Work Phone: 04-10-2022 15:28-0500 Body mass index (BMI) [Ratio] 24 kg/m2 Dr. Gauri Vila Work Phone: [facility] Work Phone: 04-10-2022 15:28-0500 Body temperature 97.2 [degF] Dr. Gauri Vila Work Phone: [facility] Work Phone: 04-10-2022 15:28-0500 Body weight 80.[address] Gauri Vila Work Phone: [facility] Work Phone: 04-10-2022 15:28-0500 Diastolic blood pressure 82 mm[Hg] Dr. Gauri Vila Work Phone: [facility] Work Phone: 04-10-2022 15:28-0500 Heart rate 59 /min Dr. Gauri Vila Work Phone: [facility] Work Phone: 04-10-2022 15:28-0500 Respiratory rate 14 /min Dr. Gauri Vila Work Phone: [facility] Work Phone: 04-10-2022 15:28-0500 SaO2% (BldA) [Mass fraction] 97 % Dr. Gauri Vila Work Phone: [facility] Work Phone: 04-10-2022 15:28-0500 Systolic blood pressure 140 mm[Hg] Dr. Gauri Vila Work Phone: [facility] Work Phone: 04-08-2022 15:20-0500 Body temperature 98.8 [degF] Dr. Gauri Vila Work Phone: [facility] Work Phone: 04-08-2022 15:20-0500 Diastolic blood pressure 80 mm[Hg] Dr. Gauri Vila Work Phone: [facility] Work Phone: 04-08-2022 15:20-0500 Heart rate 61 /min Dr. Gauri Vila Work Phone: [facility] Work Phone: 04-08-2022 15:20-0500 Respiratory rate 14 /min Dr. Gauri Vila Work Phone: [facility] Work Phone: 04-08-2022 15:20-0500 SaO2% (BldA) [Mass fraction] 98 % Dr. Gauri Vila Work Phone: [facility] Work Phone: 04-08-2022 15:20-0500 Systolic blood pressure 134 mm[Hg] Dr. Gauri Vila Work Phone: [facility] Work Phone: 01-22-2022 15:41-0400 Body mass index (BMI) [Ratio] 23.8 kg/m2 Dr. Gauri Vila Work Phone: [facility] Work Phone: 01-22-2022 15:41-0400 Body temperature 97.9 [degF] Dr. Gauri Vila Work Phone: [facility] Work Phone: 01-22-2022 15:41-0400 Body weight 79.[address] Gauri Vila Work Phone: [facility] Work Phone: 01-22-2022 15:41-0400 Diastolic blood pressure 78 mm[Hg] Dr. Gauri Vila Work Phone: [facility] Work Phone: 01-22-2022 15:41-0400 Heart rate 66 /min Dr. Gauri Vila Work Phone: [facility] Work Phone: 01-22-2022 15:41-0400 Respiratory rate 16 /min Dr. Gauri Vila Work Phone: [facility] Work Phone: 01-22-2022 15:41-0400 SaO2% (BldA) [Mass fraction] 97 % Dr. Gauri Vila Work Phone: [facility] Work Phone: 01-22-2022 15:41-0400 Systolic blood pressure 130 mm[Hg] Dr. Gauri Vila Work Phone: [facility] Work Phone: 01-10-2022 02:35-0400 Diastolic blood pressure 81 mm[Hg] Dr. Gauri Vila Work Phone: [facility] Work Phone: 01-10-2022 02:35-0400 Heart rate 61 /min Dr. Gauri Vila Work Phone: [facility] Work Phone: 01-10-2022 02:35-0400 Respiratory rate 15 /min Dr. Gauri Vila Work Phone: [facility] Work Phone: 01-10-2022 02:35-0400 SaO2% (BldA) [Mass fraction] 97 % Dr. Gauri Vila Work Phone: [facility] Work Phone: 01-10-2022 02:35-0400 Systolic blood pressure 143 mm[Hg] Dr. Gauri Vila Work Phone: [facility] Work Phone: 01-09-2022 23:59-0400 Body height 182.[address] Gauri Vila Work Phone: [facility] Work Phone: 01-09-2022 23:59-0400 Body mass index (BMI) [Ratio] 23.7 kg/m2 Dr. Gauri Vila Work Phone: [facility] Work Phone: 01-09-2022 23:59-0400 Body temperature 98.3 [degF] Dr. Gauri Vila Work Phone: [facility] Work Phone: 01-09-2022 23:59-0400 Body weight 79.[address] Gauri Vila Work Phone: [facility] Work Phone: 12-10-2021 13:08-0400 Body height 182.[address] Gauri Vila Work Phone: [facility] Work Phone: 12-10-2021 13:08-0400 Body mass index (BMI) [Ratio] 23.5 kg/m2 Dr. Gauri Vila Work Phone: [facility] Work Phone: 12-10-2021 13:08-0400 Body temperature 98.1 [degF] Dr. Gauri Vila Work Phone: [facility] Work Phone: 12-10-2021 13:08-0400 Body weight 78.[address] Gauri Vila Work Phone: [facility] Work Phone: 12-10-2021 13:08-0400 Diastolic blood pressure 75 mm[Hg] Dr. Gauri Vila Work Phone: [facility] Work Phone: 12-10-2021 13:08-0400 Heart rate 58 /min Dr. Gauri Vila Work Phone: [facility] Work Phone: 12-10-2021 13:08-0400 Respiratory rate 17 /min Dr. Gauri Vila Work Phone: [facility] Work Phone: 12-10-2021 13:08-0400 SaO2% (BldA) [Mass fraction] 97 % Dr. Gauri Vila Work Phone: [facility] Work Phone: 12-10-2021 13:08-0400 Systolic blood pressure 146 mm[Hg] Dr. Gauri Vila Work Phone: [facility] Work Phone: 11-30-2021 15:28-0400 Body temperature 97.6 [degF] Dr. Gauri Vila Work Phone: [facility] Work Phone: 11-30-2021 15:28-0400 Diastolic blood pressure 80 mm[Hg] Dr. Gauri Vila Work Phone: [facility] Work Phone: 11-30-2021 15:28-0400 Heart rate 75 /min Dr. Gauri Vila Work Phone: [facility] Work Phone: 11-30-2021 15:28-0400 Respiratory rate 16 /min Dr. Gauri Vila Work Phone: [facility] Work Phone: 11-30-2021 15:28-0400 SaO2% (BldA) [Mass fraction] 97 % Dr. Gauri Vila Work Phone: [facility] Work Phone: 11-30-2021 15:28-0400 Systolic blood pressure 122 mm[Hg] Dr. Gauri Vila Work Phone: [facility] Work Phone: 11-19-2021 07:45-0400 Body height 182.[address] Gauri Vila Work Phone: [facility] Work Phone: 11-19-2021 07:45-0400 Body weight 78.[address] Gauri Vila Work Phone: [facility] Work Phone: 11-16-2021 08:37-0400 Body mass index (BMI) [Ratio] 23.6 kg/m2 Dr. Gauri Vila Work Phone: [facility] Work Phone: 11-13-2021 13:56-0400 Body mass index (BMI) [Ratio] 23.6 kg/m2 Dr. Gauri Vila Work Phone: [facility] Work Phone: 11-13-2021 13:56-0400 Body weight 78.[address] Gauri Vila Work Phone: [facility] Work Phone: 10-24-2021 13:00-0400 Body mass index (BMI) [Ratio] 23.3 kg/m2 Dr. Gauri Vila Work Phone: [facility] Work Phone: 10-24-2021 13:00-0400 Body temperature 99.1 [degF] Dr. Gauri Vila Work Phone: [facility] Work Phone: 10-24-2021 13:00-0400 Body weight 78.[address] Gauri Vila Work Phone: [facility] Work Phone: 10-24-2021 13:00-0400 Diastolic blood pressure 86 mm[Hg] Dr. Gauri Vila Work Phone: [facility] Work Phone: 10-24-2021 13:00-0400 Heart rate 60 /min Dr. Gauri Vila Work Phone: [facility] Work Phone: 10-24-2021 13:00-0400 Respiratory rate 16 /min Dr. Gauri Vila Work Phone: [facility] Work Phone: 10-24-2021 13:00-0400 SaO2% (BldA) [Mass fraction] 97 % Dr. Gauri Vila Work Phone: [facility] Work Phone: 10-24-2021 13:00-0400 Systolic blood pressure 126 mm[Hg] Dr. Gauri Vila Work Phone: [facility] Work Phone: 10-17-2021 17:30-0400 Heart rate 74 /min Dr. Gauri Vila Work Phone: [facility] Work Phone: 10-17-2021 17:30-0400 Respiratory rate 17 /min Dr. Gauri Vila Work Phone: [facility] Work Phone: 10-17-2021 14:35-0400 Body height 182.[address] Gauri Vila Work Phone: [facility] Work Phone: 10-17-2021 14:35-0400 Body mass index (BMI) [Ratio] 22.8 kg/m2 Dr. Gauri Vila Work Phone: [facility] Work Phone: 10-17-2021 14:35-0400 Body temperature 97.5 [degF] Dr. Gauri Vila Work Phone: [facility] Work Phone: 10-17-2021 14:35-0400 Body weight 76.[address] Gauri Vila Work Phone: [facility] Work Phone: 10-17-2021 14:35-0400 Diastolic blood pressure 83 mm[Hg] Dr. Gauri Vila Work Phone: [facility] Work Phone: 10-17-2021 14:35-0400 Systolic blood pressure 118 mm[Hg] Dr. Gauri Vila Work Phone: [facility] Work Phone: 10-10-2021 16:29-0400 Body mass index (BMI) [Ratio] 24.4 kg/m2 Dr. Gauri Vila Work Phone: [facility] Work Phone: 10-10-2021 16:29-0400 Body temperature 97.1 [degF] Dr. Gauri Vila Work Phone: [facility] Work Phone: 10-10-2021 16:29-0400 Body weight 79.[address] Gauri Vila Work Phone: [facility] Work Phone: 10-10-2021 16:29-0400 Diastolic blood pressure 84 mm[Hg] Dr. Gauri Vila Work Phone: [facility] Work Phone: 10-10-2021 16:29-0400 Heart rate 68 /min Dr. Gauri Vila Work Phone: [facility] Work Phone: 10-10-2021 16:29-0400 Respiratory rate 14 /min Dr. Gauri Vila Work Phone: [facility] Work Phone: 10-10-2021 16:29-0400 SaO2% (BldA) [Mass fraction] 98 % Dr. Gauri Vila Work Phone: [facility] Work Phone: 10-10-2021 16:29-0400 Systolic blood pressure 146 mm[Hg] Dr. Gauri Vila Work Phone: [facility] Work Phone: 08-14-2021 13:20-0400 Body mass index (BMI) [Ratio] 24.3 kg/m2 Dr. Gauri Vila Work Phone: [facility] Work Phone: 08-14-2021 13:20-0400 Body weight 78.[address] Gauri Vila Work Phone: [facility] Work Phone: 08-14-2021 13:20-0400 Diastolic blood pressure 77 mm[Hg] Dr. Gauri Vila Work Phone: [facility] Work Phone: 08-14-2021 13:20-0400 Heart rate 59 /min Dr. Gauri Vila Work Phone: [facility] Work Phone: 08-14-2021 13:20-0400 Respiratory rate 18 /min Dr. Gauri Vila Work Phone: [facility] Work Phone: 08-14-2021 13:20-0400 SaO2% (BldA) [Mass fraction] 95 % Dr. Gauri Vila Work Phone: [facility] Work Phone: 08-14-2021 13:20-0400 Systolic blood pressure 129 mm[Hg] Dr. Gauri Vila Work Phone: [facility] Work Phone: 08-14-2021 13:20-0400 Body height 180.[address] Gauri Vila Work Phone: [facility] Work Phone: 08-14-2021 13:20-0400 Body mass index (BMI) [Ratio] 24.3 kg/m2 Dr. Gauri Vila Work Phone: [facility] Work Phone: 08-14-2021 13:20-0400 Body weight 78.[address] Gauri Vila Work Phone: [facility] Work Phone: 08-14-2021 13:20-0400 Diastolic blood pressure 77 mm[Hg] Dr. Gauri Vila Work Phone: [facility] Work Phone: 08-14-2021 13:20-0400 Heart rate 59 /min Dr. Gauri Vila Work Phone: [facility] Work Phone: 08-14-2021 13:20-0400 Respiratory rate 18 /min Dr. Gauri Vila Work Phone: [facility] Work Phone: 08-14-2021 13:20-0400 SaO2% (BldA) [Mass fraction] 95 % Dr. Gauri Vila Work Phone: [facility] Work Phone: 08-14-2021 13:20-0400 Systolic blood pressure 129 mm[Hg] Dr. Gauri Vila Work Phone: [facility] Work Phone: 07-03-2021 14:35-0500 Body mass index (BMI) [Ratio] 24.4 kg/m2 Dr. Gauri Vila Work Phone: [facility] Work Phone: 07-03-2021 14:35-0500 Body temperature 97.3 [degF] Dr. Gauri Vila Work Phone: [facility] Work Phone: 07-03-2021 14:35-0500 Body weight 79.[address] Gauri Vila Work Phone: [facility] Work Phone: 07-03-2021 14:35-0500 Diastolic blood pressure 72 mm[Hg] Dr. Gauri Vila Work Phone: [facility] Work Phone: 07-03-2021 14:35-0500 Heart rate 56 /min Dr. Gauri Vila Work Phone: [facility] Work Phone: 07-03-2021 14:35-0500 Respiratory rate 14 /min Dr. Gauri Vila Work Phone: [facility] Work Phone: 07-03-2021 14:35-0500 SaO2% (BldA) [Mass fraction] 98 % Dr. Gauri Vila Work Phone: [facility] Work Phone: 07-03-2021 14:35-0500 Systolic blood pressure 128 mm[Hg] Dr. Gauri Vila Work Phone: [facility] Work Phone: 07-03-2021 13:35-0500 Body mass index (BMI) [Ratio] 24.4 kg/m2 Dr. Gauri Vila Work Phone: [facility] Work Phone: 07-03-2021 13:35-0500 Body temperature 97.3 [degF] Dr. Gauri Vila Work Phone: [facility] Work Phone: 07-03-2021 13:35-0500 Body weight 79.[address] Gauri Vila Work Phone: [facility] Work Phone: 07-03-2021 13:35-0500 Diastolic blood pressure 72 mm[Hg] Dr. Gauri Vila Work Phone: [facility] Work Phone: 07-03-2021 13:35-0500 Heart rate 56 /min Dr. Gauri Vila Work Phone: [facility] Work Phone: 07-03-2021 13:35-0500 Respiratory rate 14 /min Dr. Gauri Vila Work Phone: [facility] Work Phone: 07-03-2021 13:35-0500 SaO2% (BldA) [Mass fraction] 98 % Dr. Gauri Vila Work Phone: [facility] Work Phone: 07-03-2021 13:35-0500 Systolic blood pressure 128 mm[Hg] Dr. Gauri Vila Work Phone: [facility] Work Phone: 08-23-2020 12:46-0400 Body height 180.3 cm Bib Franz MD Work Phone: [facility] 08-23-2020 12:46-0400 Body mass index (BMI) [Ratio] 25.24 kg/m2 Bib Franz MD Work Phone: [facility] 08-23-2020 12:46-0400 Body weight 82.1 kg Bib Franz MD Work Phone: [facility] 08-23-2020 12:46-0400 Diastolic blood pressure 92 mm[Hg] Bib Franz MD Work Phone: [facility] 08-23-2020 12:46-0400 Heart rate 61 /min Bib Franz MD Work Phone: [facility] 08-23-2020 12:46-0400 Systolic blood pressure 163 mm[Hg] Bib Franz MD Work Phone: [facility] 08-24-2018 13:01-0400 BMI (Body Mass Index) 24.83 kg/m2 Jacqui Olivas [facility] 08-24-2018 13:01-0400 BP Diastolic 96 mm[Hg] Jacqui Olivas [facility] 08-24-2018 13:01-0400 BP Systolic 155 mm[Hg] Jacqui [facility] 08-24-2018 13:01-0400 Height 180.3 cm Jacqui [facility] 08-24-2018 13:01-0400 Pulse (Heart Rate) 56 /min Jcaqui Olivas [facility] 08-24-2018 13:01-0400 Weight 80.74 kg Jacqui Olivas [facility] 04-16-2017 10:30-0500 BMI (Body Mass Index) 23.85 kg/m2 Bib Franz [facility] Work Phone: 04-16-2017 10:30-0500 BP Diastolic 88 mm[Hg] Bib Franz [facility] Work Phone: 04-16-2017 10:30-0500 BP Systolic 118 mm[Hg] Bib Franz [facility] Work Phone: 04-16-2017 10:30-0500 Pulse (Heart Rate) 64 /min Bib Franz [facility] Work Phone: 04-16-2017 10:30-0500 Weight 77.56 kg Bib Franz [facility] Work Phone: 11-08-2016 09:16-0400 BMI (Body Mass Index) 25.14 kg/m2 [facility] Work Phone: 11-08-2016 09:16-0400 BP Diastolic 78 mm[Hg] [facility] Work Phone: 11-08-2016 09:16-0400 BP Systolic 122 mm[Hg] [facility] Work Phone: 11-08-2016 09:16-0400 Height 182.88 cm [facility] Work Phone: 11-08-2016 09:16-0400 Pulse (Heart Rate) 52 /min [facility] Work Phone: 11-08-2016 09:16-0400 Respiratory Rate 20 /min [facility] Work Phone: 11-08-2016 09:16-0400 Weight 84.1 kg [facility] Work Phone: 10-24-2015 15:09-0400 BMI (Body Mass Index) 22.92 kg/m2 [facility] Work Phone: 10-24-2015 15:09-0400 BP Diastolic 70 mm[Hg] [facility] Work Phone: 10-24-2015 15:09-0400 BP Systolic 100 mm[Hg] [facility] Work Phone: 10-24-2015 15:09-0400 BSA (Body Surface Area) 1.98 m2 [facility] Work Phone: 10-24-2015 15:09-0400 Pulse (Heart Rate) 68 /min [facility] Work Phone: 10-24-2015 15:09-0400 Respiratory Rate 20 /min Ericka Santos [facility] Work Phone: 10-24-2015 15:09-0400 Weight 76.66 kg Ericka aSntos [facility] Work Phone: 04-21-2015 13:52-0500 Heart rate 56 /min Carmen Andrews RN [facility] Work Phone: 10-14-2013 15:14-0400 Height 182.88 cm Ericka Santos [facility] Work Phone: 01-02-2012 16:35-0400 Heart rate 423 ms Carmen Andrews RN [facility] Work Phone: 06-13-2011 16:20-0500 BP Diastolic 70 mm[Hg] Ericka Santos [facility] Work Phone: 06-13-2011 16:20-0500 BP Systolic 110 mm[Hg] Ericka Fry [facility] Work Phone: NEGATED: Highlighted [id number] 13:04-0500 BMI (Body Mass Index) 25.06 kg/m2 Roxanne Gilliam AT [facility] Work Phone: NEGATED: Highlighted [id number] 13:04-0500 Body weight 81.19 kg Roxanne Gilliam AT [facility] Work Phone: NEGATED: Highlighted [id number] 13:04-0500 Body weight 81 kg Roxanne Gilliam AT [facility] Work Phone: NEGATED: Highlighted [id number] 13:04-0500 BP Diastolic 92 mm[Hg] Roxanne Gilliam AT [facility] Work Phone: NEGATED: Highlighted [id number] 13:04-0500 BP Diastolic 82 mm[Hg] Roxanne Gilliam AT [facility] Work Phone: NEGATED: Highlighted [id number] 13:04-0500 BP Systolic 156 mm[Hg] Roxanne Gilliam AT [facility] Work Phone: NEGATED: Highlighted [id number] 13:04-0500 BP Systolic 137 mm[Hg] Roxanne Gilliam AT [facility] Work Phone: NEGATED: Highlighted [id number] 13:04-0500 Height 180.34 cm Roxanne Gilliam AT [facility] Work Phone: NEGATED: Highlighted [id number] 13:04-0500 Height 180 cm Roxanne Gilliam AT [facility] Work Phone: NEGATED: Highlighted [id number] 13:04-0500 Pulse (Heart Rate) 71 /min Roxanne Gilliam AT [facility] Work Phone: Encounters Encounter Date Encounter Type Care Provider Facility Start: 01-14-2025 Admission to [facility] Dr. Spenser Winston MD -[facility] Start: 01-14-[address] Gauri Vila DO Work Phone: -[facility] Start: 01-12-2025 End: 01-13-2025 Emergency department patient visit Gauri Vila Facility:[facility] Start: 01-11-[address] Spenser Winston MD -Laboratory Work Phone: Start: 01-11-2025 ambulatory Gauri Vila Facilit y:[facility] Start: 12-31-2024 End: 12-31-[address] Gauri Vila DO Work Phone: -Laboratory Start: 12-31-2024 End: 12-31-[address] Spenser Winston MD -Laboratory Work Phone: Start: 12-31-2024 End: 12-31-2024 ambulatory Gauri Vila Facility:[facility] Start: 11-10-2024 End: 11-10-2024 Patient encounter procedure Carmen CAST -[facility] Work Phone: Start: 11-10-2024 End: 11-10-[address] Gauri Vila DO Work Phone: -[facility] Start: 11-08-2024 End: 11-08-[address] Edwar Person MD -[facility] Work Phone: Start: 11-08-2024 End: 11-08-[address] Gauri Vila DO Work Phone: -[facility] Start: 11-06-2024 End: 11-06-[address] Gauri Vila DO Work Phone: -Laboratory Start: 11-06-2024 End: 11-06-2024 Patient encounter procedure Carmen CAST -Laboratory Work Phone: Start: 11-06-2024 End: 11-06-2024 ambulatory Gauri Vila Facility:[facility] Start: 11-01-2024 End: 11-01-[address] Edwar Person MD -[facility] Work Phone: Start: 11-01-2024 End: 11-01-[address] Gauri Vila DO Work Phone: -[facility] Start: 10-25-2024 End: 10-25-[address] Edwar Person MD -[facility] Work Phone: Start: 10-25-2024 End: 10-25-[address] Gauri Vila DO Work Phone: [facility] Work Phone: Start: 10-12-2024 End: 10-12-[address] Edwar Person MD -[facility] Work Phone: Start: 10-12-2024 End: 10-12-[address] Gauri Vila DO Work Phone: [facility] Work Phone: Start: 09-01-2024 End: 09-01-[address] Gauri Villa DO -[facility] Work Phone: Start: 09-01-2024 End: 09-01-2024 ambulatory Gauri Vila Facility:[facility] Start: 08-04-2024 ambulatory Adam Maloney Facility:[facility] Start: 08-04-2024 Non-patient / Non-visit [facility]. Hernandez [facility] -[facility] Start: 08-04-2024 End: 08-04-2024 Patient encounter procedure Carmen Garcia PA -Cardi[facility] Services Work Phone: Start: 08-04-2024 End: 08-04-2024 ambulatory Gauri Vila Facility:[facility] Start: 07-21-2024 End: 07-21-[address] Gauri Villa DO -[facility] Work Phone: Start: 07-21-2024 End: 07-21-[address] Gauri Vila DO Work Phone: [facility] Work Phone: Start: 07-21-2024 End: 07-21-2024 ambulatory Gauri Vila Facility:[facility] Start: 07-07-2024 End: 07-07-2024 Patient encounter procedure Carmen CAST -[facility] Work Phone: Start: 07-07-2024 End: 07-07-2024 ambulatory Gauri Vila Facility:[facility] Start: 07-05-2024 End: 07-05-[address] Gauri Vila DO Work Phone: [facility] Work Phone: Start: 07-05-2024 End: 07-05-2024 Patient encounter procedure Carmen M Garcia PA -Laboratory Work Phone: Start: 07-05-2024 End: 07-05-2024 ambulatory Gauri Vila Facility:[facility] Start: 04-14-2024 End: 04-14-[address] Gauri Villa DO -[facility] Work Phone: Start: 04-14-2024 End: 04-14-2024 ambulatory Gauri Vila Facility:[facility] Start: 04-03-2024 End: 04-03-2024 Emergency department patient visit Dr. Lisa Fernandez DO -Emergency Department Work Phone: Start: 04-03-2024 End: 04-03-2024 ambulatory ROSARIO Juan RYAN Facility:[facility] Start: 04-03-2024 End: 04-03-2024 Patient encounter procedure Mandy PARKC Work Phone: [facility] Comment on above: Left leg pain (Prima ry Dx); History of DVT (deep vein thrombosis) Start: 03-15-2024 End: 03-15-2024 ambulatory Gauri Vila Facility:[facility] Start: 02-04-2024 End: 02-04-2024 ambulatory Gauri Vila Facility:[facility] Start: 07-15-2023 End: 07-15-2023 ambulatory BIB FRANZ [facility] Amb[facility] Start: 07-15-2023 End: 07-15-2023 Office outpatient visit 15 minutes Bib Franz MD Work Phone: [facility] Comment on above: Goiter, nontoxic, mu ltinodular (Primary Dx) Start: 07-11-2023 End: 07-11-[address] Gauri Vila Work Phone: [facility] Work Phone: Start: 07-11-2023 End: 07-11-[address] Gauri Vila Work Phone: [facility]-Laboratory Work Phone: Start: 07-10-2023 End: 07-10-[address] Gauri Vila Work Phone: [facility] Work Phone: Start: 07-10-2023 End: 07-10-[address] Gauri Vila Work Phone: [facility]-Ultrasound, H Work Phone: Start: 07-08-2023 Orders Only Bib Carvajal MD Work Phone: [facility] Comment on above: Goiter, nontoxic, mu ltinodular (Primary Dx) Start: 07-04-2023 End: 07-04-[address] Gauri Vila Work Phone: [facility] Work Phone: Start: 07-02-2023 End: 07-02-[address] Gauri Vila Work Phone: [facility] Work Phone: Start: 07-02-2023 End: 07-02-[address] Gauri Vila Work Phone: [facility]-Laboratory Work Phone: Start: 05-30-2023 End: 05-30-[address] Gauri Vila Work Phone: [facility] Work Phone: Start: 05-12-2023 End: 05-12-[address] Gauri Vila Work Phone: [facility] Work Phone: Start: 05-12-2023 End: 05-12-[address] Gauri Vila Work Phone: [facility] Work Phone: Start: 05-07-2023 End: 05-07-[address] Gauri Vila Work Phone: [facility] Work Phone: Start: 04-24-2023 End: 04-24-[address] Gauri Vila Work Phone: [facility] Work Phone: Start: 01-28-2023 End: 01-28-[address] Gauri Vila Work Phone: [facility] Internal [facility] Work Phone: Start: 11-13-2022 End: 11-13-2022 ambulatory [facility] Work Phone: Start: 11-13-2022 End: 11-13-2022 Patient encounter procedure [facility] Work Phone: Start: 09-20-2022 End: 09-20-2022 [facility] Start: 04-17-2022 End: 04-17-[address] Gauri Vila Work Phone: [facility] Work Phone: Start: 04-17-2022 End: 04-17-[address] Gauri Vila Work Phone: [facility], [place] Start: 04-10-2022 End: 04-10-[address] Gauri Vila Work Phone: [facility] Internal [facility] Start: 04-08-2022 End: 04-08-[address] Gauri Vila Work Phone: [facility] Start: 01-22-2022 End: 01-22-[address] Gauri Vila Work Phone: [facility] Internal [facility] Start: 01-09-2022 End: 01-10-2022 Emergency department patient visit Dr. Gaur[facility]ila [facility] Start: 12-19-2021 End: 12-19-[address] Gauri Vila Work Phone: [facility] Start: 12-10-2021 End: 12-10-[address] Gauri Vila Work Phone: [facility] Start: 11-30-2021 End: 11-30-[address] Gauri Vila Work Phone: [facility] Start: 11-19-2021 End: 11-19-2021 Admission to same day surgery center Dr. Gauri Vila Work Phone: [facility]-Home Care Liaison/Special Procedures Start: 11-14-2021 End: 11-14-[address] Gauri Vila Work Phone: [facility]-Laboratory Start: 11-13-2021 End: 11-13-[address] Gauri Vila Work Phone: [facility] Start: 10-24-2021 End: 10-24-[address] Gauri Vila Work Phone: [facility] Internal [facility] Start: 10-17-2021 End: 10-17-2021 Emergency department patient visit Dr. Gauri Vila Work Phone: [facility]-Emergency Department Start: 10-10-2021 End: 10-10-[address] Gauri Vila Work Phone: [facility] Start: 08-14-2021 End: 08-14-[address] Gauri Vila Work Phone: [facility]-Laboratory Start: 08-13-2021 Non-patient / Non-visit Dr. Lane Work Phone: [facility] Start: 08-13-2021 End: 08-13-[address] Gauri Vila Work Phone: [facility]-Pulmonary Services/Neurology Start: 07-03-2021 End: 07-03-[address] Gauri Vila Work Phone: [facility] Start: 08-23-2020 End: 08-23-2020 Office outpatient visit 15 minutes Bib Franz MD Work Phone: [facility] Comment on above: Nontoxic multinodula r goiter (Primary Dx) Start: 06-10-2020 End: 06-10-2020 Orders Only Jonna Mix Work Phone: [facility] Start: 05-11-2020 End: 05-11-2020 Orders Only Bib rFanz MD Work Phone: [facility] Comment on above: Nontoxic multinodula r goiter (Primary Dx) Start: 08-24-2018 End: 08-24-2018 Office outpatient visit 15 minutes Jacqui Dukesjoel Olivas Work Phone: [facility] Comment on above: Multinodular goiter (nontoxic) (Primary Dx) Start: 04-24-2018 Patient encounter procedure Abel Dixon Facility:[facility] Start: 04-16-2017 Office/outpatient visit, est, level 3 Bib Franz Work Phone: [facility] Procedures Date Procedure Procedure Detail Performing Clinician Start: 01-11-[address] Jabari Vila DO Work Phone: Start: 12-31-2024 Assay of prostate specific antigen [...] of knee, four or more views Dr. aGuri Vila DO Work Phone: Start: 07-10-2023 [place] [...] [AGGREGATE] Dominga Mcconnell Start: 11-08-2016 End: 11-08-2016 LAND INSPECTOR Stephen Grant NP Work Phone: Start: 11-08-2016 [...] months Dominga Mcconnell Start: 04-21-2015 End: 04-21-2015 MM Adam Maloney MD Start: 04-04-2015 End: 04-17-2015 *Hepatic Function Panel Carmen singleton PA-C Work Phone: Start: 04-04-2015 End: 04-17-2015 Lipid panel [AGGREGATE] Carmen singleton PA-C Work Phone: Start: 10-06-2014 End: 10-06-2014 LAND INSPECTOR Carmen Garcia PA-C Work Phone: Start: 10-06-2014 [...] months Dominga Mcconnell Start: 04-05-2014 End: 04-05-2014 MMDominga Maloney MD Start: 12-03-2013 End: 03-28-2014 *Hepatic Function Panel Dominga Mcconnell Start: 12-03-2013 End: 03-28-2014 Lipid panel [AGGREGATE] Dominga Mcconnell Start: 10-14-2013 End: 10-14-2013 LAND INSPECTOR Adam Maloney MD Start: 10-14-2013 End: 10-14-2013 Follow Up Appt 6 months Dominga Mcconnell Start: 10-14-2013 End: 10-14-2013 MMDominga Maloney MD Start: 09-02-2013 End: 09-02-2013 Follow Up Appt Other Carmen mejia PA-C Work Phone: Start: 09-02-2013 End: 09-28-2015 Nuclear stress test -exercise Carmen Garcia PA-C Work Phone: Start: 06-24-2013 End: 06-24-2013 LAND INSPECTORSilvina Garcia PA-C Work Phone: Start: 06-24-2013 End: [...] stent placement Carmen CAST Comment on above: FBA-BOL-Jiky LAD and POBA-D1 05/16/2010 NEGATED: Highlighted rowStart: 03-25-2019 End: 03-25-2019 Documentation of current medications Roxanne Gilliam AT Plan of Treatment Date Care Activity Detail Author Start: 11-07-2029 Tetanus vaccination Tetanus: Every 1 0yrs [facility] Start: 11-07-2029 Urine microalbumin profile DTaP,Tdap,Td Vaccine (3 - Td or Tdap) [facility] Start: 01-14-2025 Cysto,TUR,Prostate,O lymp us (Not Applicable) Cysto,TUR,Prostate,Janessa mpus (Not Applicable) [facility] Start: 01-14-2025 Hospital admission, emergency, from emergency room, medical nature [facility] Start: 01-14-2025 Referral to service [facility] Start: 01-14-2025 Referral to service [facility] Start: 01-14-2025 Suicide precautions [facility] Start: 01-12-2025 [facility] Start: 01-11-2025 Bacteria identified in Urine by Culture Urine Culture [facility] Start: 01-11-2025 [facility] Start: 01-10-2025 Tetanus vaccination Tetanus: Every 1 0yrs [facility] Start: 09-01-2024 Patient referral [facility] Work Phone: Start: 04-03-2024 [facility] Start: 01-04-2024 Covid-19 Vaccine ( season) Covid-19 Vaccine () [facility] Start: 05-12-2023 Patient referral [facility] Work Phone: Start: 05-07-2023 Patient referral [facility] Work Phone: Start: 05-05-2023 Advance Directive Discussion Advance Directive Discussion [facility] Start: 01-28-2023 Patient referral [facility] Work Phone: Start: 01-03-2023 COVID-19 Vaccine ( season) COVID-19 Vaccine ( season) [facility] Start: 01-03-2023 Influenza vaccination Sequenti al Influenza Vaccine (#1) [facility] Start: 2022 RSV Vaccine (1 - 1-d ose 75+ series) RSV Vaccine (1 - 1-dose 75+ series) [facility] Start: 11-30-2021 Patient referral [facility] Work Phone: Start: 11-19-2021 Catheterization of l eft heart [facility] Work Phone: Start: 10-24-2021 Patient referral [facility] Work Phone: Start: 10-10-2021 Patient referral [facility] Work Phone: Start: 07-03-2021 Patient referral [facility] Work Phone: Start: 08-23-2020 End: 08-23-2020 Office Visit [facility] Start: 01-04-2020 Influenza vaccinatio n given Sequential Influenza Vaccine (#1) [facility] Start: 04-16-2019 Ambulatory 04/16/2019 Off ice Visit Endocrinology Franz, Bib Briana, MD [address] [place] [id number] [phone] [facility] Start: 03-25-2019 End: 03-25-2019 Radex spine cervical 4 or 5 views XR CERVICAL 4VWS FLEX/EXT [facility] Work Phone: Start: 01-03-2018 Influenza vaccinatio n given SEQUENTIAL INFLUENZA VACCINE (#1) [facility] Start: 05-07-2017 End: 05-07-2017 Appointment Appointment [facility] Work Phone: Start: 04-21-2017 End: 04-29-2017 *Hepatic Function Panel *Hepatic Function Panel [facility] Work Phone: Start: 04-21-2017 End: 04-29-2017 Lipid panel [AGGREGATE] *Lipid Profile CC PCP [facility] Work Phone: Start: 01-03-2017 Influenza vaccination SEQUENTI AL INFLUENZA VACCINE (#1) [facility] Work Phone: Start: 11-08-2016 End: 11-08-2016 Appointment Appointment [facility] Work Phone: Start: 11-08-2016 End: 11-08-2016 LAND INSPECTOR LAND INSPECTOR [facility] Work Phone: Start: 11-08-2016 End: 11-08-2016 Follow Up Appt 6 months Follow Up Appt 6 months [facility] Work Phone: Start: 10-29-2016 End: 10-29-[address] [facility] [place] Work Phone: Start: 10-29-2016 End: 10-29-2016 Appointment Appointment [facility] Work Phone: Start: 10-11-2016 End: 10-18-2016 *Hepatic Function Panel *Hepatic Function Panel [facility] [place] Work Phone: Start: 10-11-2016 End: 10-18-2016 Lipid panel [AGGREGATE] *Lipid Profile CC PCP [facility] Work Phone: Start: 04-24-2016 End: 04-12-2016 *Hepatic Function Panel *Hepatic Function Panel [facility] [place] Work Phone: Start: 04-24-2016 End: 04-12-2016 Lipid panel [AGGREGATE] *Lipid Profile CC PCP [facility] Work Phone: Start: 10-24-2015 End: 10-24-2015 Follow Up Appt 1 year Follow Up Appt 1 year [facility] Work Phone: Start: 10-24-2015 End: 10-24-[address] [facility] [place] Work Phone: Start: 10-17-2015 End: 10-23-2015 *Hepatic Function Panel *Hepatic Function Panel [facility] [place] Work Phone: Start: 10-17-2015 End: 10-23-2015 Lipid panel [AGGREGATE] *Lipid Profile CC PCP [facility] Work Phone: Start: 04-21-2015 End: 04-21-2015 Electrocardiogram, complete EKG (In office) [facility] [place] Work Phone: Start: 04-21-2015 End: 04-21-2015 Follow Up Appt 6 months Follow Up Appt [address] [facility] [place] Work Phone: Start: 04-21-2015 End: 04-21-[facility] Work [facility]: Start: 04-04-2015 End: 04-17-2015 *Hepatic Function Panel *Hepatic Function Panel [facility] [place] Work Phone: Start: 04-04-2015 End: 04-17-2015 Lipid panel [AGGREGATE] *Lipid Profile CC PCP [facility] Work Phone: Start: 10-06-2014 End: 10-06-2014 [facility] Work Phone: Start: 10-06-2014 End: 10-06-2014 Follow Up Appt 6 months Follow Up Appt [address] [facility] [place] Work Phone: Start: 09-26-2014 End: 10-03-2014 *Hepatic Function Panel *Hepatic Function Panel [facility] [place] Work Phone: Start: 09-26-2014 End: 10-03-2014 Lipid panel [AGGREGATE] *Lipid Profile CC PCP [facility] Work Phone: Start: 04-05-2014 End: 04-05-2014 Follow Up Appt 6 months Follow Up Appt [address] [facility] [place] Work Phone: Start: 04-05-2014 End: [facility]-05-[facility] Work Phone: Start: 12-03-2013 End: 03-28-2014 *Hepatic Function Panel *Hepatic Function Panel [facility] [place] Work Phone: Start: 12-03-2013 End: 03-28-2014 Lipid panel [AGGREGATE] *Lipid Profile CC PCP [facility] Medical [facility] Work Phone: Start: 10-14-2013 End: 10-14-2013 [facility] Work Phone: Start: 10-14-2013 End: 10-14-2013 Follow Up Appt 6 months Follow Up Appt [address] [facility] [place] Work Phone: Start: 10-14-2013 End: 10-14-2013 MMM [facility] Work Phone: Start: 09-02-2013 End: 09-02-2013 Follow Up Appt Other Follow Up Appt Other [facility] [place] Work Phone: Start: 09-02-2013 End: 09-02-2013 Nuclear stress test -exercise Nuclear stress test -exercise [facility] [place] Work Phone: Start: 06-24-2013 End: 06-24-2013 LAND INSPECTOR LAND INSPECTOR [facility] [place] Work Phone: Start: 06-24-2013 End: 06-24-2013 Follow Up Appt 6 months Follow Up Appt [address] [facility] [place] Work Phone: Start: 06-24-2013 End: 06-24-2013 Follow Up Appt Other Follow Up Appt Other [facility] [place] Work Phone: Start: 06-05-2013 End: 06-28-2013 *BMP *BMP [facility] [place] Work Phone: Start: 06-05-2013 End: 06-29-2013 *Hepatic Function Panel *Hepatic Function Panel [facility] [place] Work Phone: Start: 06-05-2013 End: 06-29-2013 Lipid panel [AGGREGATE] *Lipid Profile CC PCP [facility] Medical Ce [facility] Work Phone: Start: 03-23-2013 End: 03-23-2013 *BMP *BMP [facility] [place] Work Phone: Start: 03-23-2013 End: 03-23-2013 CBC W Auto Differential panel - Blood *CBC without Diff [facility] [place] Work Phone: Start: 03-23-2013 End: 09-02-2013 Chest x-ray X-Ray, Chest, PA & Lateral [facility] [place] Work Phone: Start: 03-23-2013 End: 03-23-2013 Coagulation factor induced.INR assay in platelet poor plasma *PT/INR [facility] [place] Work Phone: Start: 03-23-2013 End: 03-23-2013 Electrocardiogram, complete EKG (In office) [facility] [place] Work Phone: Start: 03-23-2013 End: 03-23-2013 Left Heart Cath Left Heart Cath [facility] [place] Work Phone: Start: 03-15-2013 Administration of he rpes zoster vaccine Zoster Vaccines (2 of 3) [facility] Start: 03-15-2013 Shingrix Vaccine (2 of 3) Shingrix Vaccine (2 of 3) [facility] Start: 12-22-2012 End: 12-22-2012 Follow Up Appt 6 months Follow Up Appt [address] [facility] [place] Work Phone: Start: 12-22-2012 End: 12-22-[address] [facility] [place] Work Phone: Start: 12-03-2012 End: 12-28-2012 *Hepatic Function Panel *Hepatic Function Panel [facility] [place] Work Phone: Start: 12-03-2012 End: 12-28-2012 Lipid panel [AGGREGATE] *Lipid Profile [facility] Work Phone: Start: 06-05-2012 End: 04-01-2012 *Hepatic Function Panel *Hepatic Function Panel [facility] [place] Work Phone: Start: 06-05-2012 End: 06-17-2012 Lipid panel [AGGREGATE] *Lipid Profile [facility] Work Phone: Start: 2012 Fall risk assessment Falls Risk Asse ssment [facility] Start: 2012 Pneumococcal vaccination PNEUM OCOCCAL VACCINE AGE 65+ (1 of 2 - PCV13) [facility] Work Phone: Start: 2012 Ultrasound scan of abdominal aorta ABDOMINAL AORTIC ULTRASOUND [facility] Work Phone: Start: 01-02-2012 End: 01-02-2012 Electrocardiogram, complete EKG (In office) [facility] [place] Work Phone: Start: 01-02-2012 End: 01-03-2012 Follow Up Appt 1 year Follow Up Appt 1 year [facility] Work Phone: Start: 12-04-2011 End: 12-23-2011 *Hepatic Function Panel *Hepatic Function Panel [facility] [place] Work Phone: Start: 12-04-2011 End: 12-23-2011 Lipid panel [AGGREGATE] *Lipid Profile [facility] Work Phone: Start: 06-13-2011 End: 06-13-2011 Follow Up Appt 6 months Follow Up Appt [address] [facility] [place] Work Phone: Start: 2007 Hepatitis B Vaccine (1 of 3 - Risk 3-dose series) Hepatitis B Vaccine (1 of 3 - Risk 3-dose series) [facility] Start: 2007 Zoster vacc, sc ZOSTER VACCINE [facility] Work Phone: Start: 1997 Administration of he rpes zoster vaccine Zoster Vaccines (1 of 2) [facility] Start: 1997 Screening for malign ant neoplasm of colon [facility] Start: 1992 Diabetes Screening Diabetes Screenin g [facility] Start: 1966 Hepatitis A Vaccine (1 of 2 - Risk 2-dose series) Hepatitis A Vaccine (1 of 2 - Risk 2-dose series) [facility] Start: 1965 Anxiety Screening Anxiety Screening [facility] Start: 1965 Depression Screening Depression Scre ening [facility] Start: 1965 Hepatitis C antibody , confirmatory test Hepatitis C Screening [facility] Start: 1965 Hepatitis C screening Hepatitis C Sc reening [facility] Start: 1963 COVID-19 Vaccine (1 of 2) COVID-19 Vaccine (1 of 2) [facility] Start: 1959 Adolescent depressio n screening assessment Depression Screening (PHQ9) [facility] Start: 1959 Depression screening using PHQ-9 (Patient Health Questionnaire 9) score [facility] Start: 1950 History and physical examination, annual for health maintenance Wellness Visit [facility] Start: 1947 Fall risk assessment Falls Risk Asse ssment [facility] Start: 1947 Hepatitis C antibody , confirmatory test HEPATITIS C SCREENING [facility] Start: 1947 HEPATITIS C SCREENING HEPATITIS C SC JAMAL [facility] Work Phone: Start: 1947 Prostate specific antigen measurement PSA Level [facility] Start: 1947 Screening colonoscopy [facility] Work Phone: Start: 1947 Screening for malign ant neoplasm of colon Colorectal Cancer Screening: Colonoscopy [facility] Start: 1947 Tetanus vaccination TETANUS EVERY 10 YR [facility] Work Phone: Start: 1945 US scan of abdominal aorta Abdominal Aortic Ultrasound [facility] Amphetamines [Presen ce] in Urine by Screen method >1000 ng/mL [facility] Benzodiazepine measurement, urine [facility] Bilirubin measuremen t, urine [facility] Catheterization of l eft heart [facility] Work Phone: Cocaine measurement, urine [facility] fentaNYL [Presence] in Urine by Screen method [facility] Hemoglobin [Presence ] in Urine [facility] Measurement of keton es in urine using dipstick [facility] Methadone measuremen t, urine [facility] Microscopic urinalysis [facility] Organism count, microscopic method [facility] Patient Education [facility] Work Phone: Patient referral [facility] Work Phone: pH of Urine [facility] Phencyclidine [Prese nce] in Urine [facility] Specific gravity of Urine [facility] End: 08-25-2019 T4 free mass conc T4, Free Routine Multinodular goiter (nontoxic) 1 Occurrences starting 08/24/2018 until 08/25/2019 [facility] Comment on above: 1 Occurrences starti ng 08/24/2018 until 08/25/2019 End: 05-11-2021 Thyrotropin [Units/volume] in Serum or Plasma TSH Lab Routine Nontoxic multinodular goiter 1 Occurrences starting 05/11/2020 until 05/11/2021 [facility] Comment on above: 1 Occurrences starti ng 05/11/2020 until 05/11/2021 End: 07-08-2024 Thyrotropin [Units/volume] in Serum or Plasma TSH Lab Routine Goiter, nontoxic, multinodular 1 Occurrences starting 07/08/2023 until 07/08/2024 [facility] Comment on above: 1 Occurrences starti ng 07/08/2023 until 07/08/2024 End: 08-25-2019 Thyrotropin Qn TSH Routine Multinodular goiter (nontoxic) 1 Occurrences starting 08/24/2018 until 08/25/2019 [facility] Comment on above: 1 Occurrences starti ng 08/24/2018 until 08/25/2019 End: 04-17-2018 Thyroxine (T4) free T4, Free Routine Multinodular goiter (nontoxic) 1 Occurrences starting 04/16/2017 until 04/17/2018 [facility] Work Phone: End: 05-11-2021 Thyroxine (T4) free [Mass/volume] in Serum or Plasma T4, Free Lab Routine Nontoxic multinodular goiter 1 Occurrences starting 05/11/2020 until 05/11/2021 [facility] Comment on above: 1 Occurrences starti ng 05/11/2020 until 05/11/2021 End: 07-08-2024 Thyroxine (T4) free [Mass/volume] in Serum or Plasma T4, Free Lab Routine Goiter, nontoxic, multinodular 1 Occurrences starting 07/08/2023 until 07/08/2024 [facility] Comment on above: 1 Occurrences starti ng 07/08/2023 until 07/08/2024 End: 04-17-2018 TSH TSH Routine Multinodular goiter (nontoxic) 1 Occurrences starting 04/16/2017 until 04/17/2018 [facility] Work Phone: Urine cannabinoid measurement [facility] Urine culture [facility] Urine dipstick for glucose [facility] Urine dipstick for leukocyte esterase [facility] Urine dipstick for nitrite [facility] Urine dipstick for protein [facility] Urine examination [facility] Urine microscopy: epithelial cells [facility] Urine microscopy: re d cells [facility] Urine opiate measurement [facility] Urobilinogen [Presen ce] in Urine [facility] US Heart [facility] End: 04-17-2018 US Thyroid US Thyroid Routine Multinodular goiter (nontoxic) 1 Occurrences starting 04/16/2017 until 04/17/2018 [facility] Work Phone: End: 07-08-2024 US Thyroid gland US Thyroid Only Imaging Routine Goiter, nontoxic, multinodular 1 Occurrences starting 07/08/2023 until 07/08/2024 [facility] Work Phone: Comment on above: 1 Occurrences starti ng 07/08/2023 until 07/08/2024 White blood cell count [facility] XR Knee 3 Views [facility] Immunizations Immunization Date Immunization Notes Care Provider Fa cility 02-04-2024 Seasonal trivalent influenza vaccine, adjuvanted, preservative free Dr. Gauri Vila DO Work Phone: [facility] 07-03-2021 pneumococcal vaccine , unspecified formulation Dr. Gauri Vila Work Phone: [facility] Work Phone: 07-03-2021 pneumococcal polysaccharide vaccine, [address] Gauri Vila Work Phone: [facility] 07-13-2020 Covid (Edis & Edis) Dr. Gauri Vila Work Phone: [facility] 02-17-[address] Gauri Vila Work Phone: [facility] 11-08-2019 tetanus toxoid, redu brittni diphtheria toxoid, and acellular pertussis vaccine, adsorbed Dr. Gauri Vila Work Phone: [facility] 01-22-2019 influenza, injectabl e, quadrivalent, preservative free Dr. Gauri Vila Work Phone: [facility] 01-22-2019 influenza, seasonal, injectable Dr. Gauri Vila Work Phone: [facility] 02-16-[address] Corrine Vila Work Phone: [facility] Work Phone: 02-16-2014 pneumococcal vaccine , unspecified formulation Dr. Gauri Vila Work Phone: [facility] Payers Date Payer Category Payer Self-pay [id number] 2023 Private Health Insurance [facility] AARP SUPPLEMENT [id number] 2023-Present [phone] [place] [address] Indemnity [id number] 2015 Unknown [id number] 3 2015 Unknown [employer]ARP A[employer] [id number] 2015-Present [id number] 2015 Unknown [employer]ARP [employer] [id number] 2015-Present [id number] 2015 Unknown [employer]ARP [employer] [id number] 2015-Present [phone] [place] [address] [id number] 2012 Medicare MEDICARE MEDICAR E PART A & B xxxxxxxxxx 2012-Present [place] xxxxxxxxxx [id number] 2012 Medicare MEDICARE MEDICAR E PART A & B [id number] 2012-Present [place] [id number] 2012 Medicare [id number] 2012 Medicare [id number] 1945 Unknown [id number] .903 1945 Unknown [id number] 2.16.840.1.516105.3.579.2 .903 Medicare [id number] 3 Unknown [id number] 2.16.840.1.420816.3.579.2 .273 Unknown [id number] 2.16.840.1.498988.3.579.2 .462 Unknown [id number] 2.16.840.1.336156.3.579.2 .462 Unknown [id number] 2.16.840.1.742262.3.579.2 .462 Unknown [id number] 2.16.840.1.281659.3.579.2 .462 Unknown [id number] 2.16.840.1.160346.3.579.2 .462 Unknown [id number] 2.16.840.1.814716.3.579.2 .462 Unknown [id number] 2.16.840.1.022601.3.579.2 .462 Unknown [id number] 2.16.840.1.182498.3.579.2 .462 Unknown [id number] 2.16.840.1.017803.3.579.2 .462 Unknown [id number] 2.16.840.1.240938.3.579.2 .462 Unknown [id number] 2.16.840.1.159422.3.579.2 .462 Unknown [id number] 2.16.840.1.277028.3.579.2 .462 Unknown [id number] 2.16.840.1.500268.3.579.2 .462 Unknown [id number] 2.16.840.1.729739.3.579.2 .462 Unknown [id number] 2.16.840.1.773370.3.579.2 .462 Unknown [id number] 2.16.840.1.085832.3.579.2 .462 Unknown [id number] 2.16.840.1.485170.3.579.2 .462 Unknown [id number] 2.16.840.1.235027.3.579.2 .462 Unknown [id number] 2.16.840.1.789879.3.579.2 .462 Unknown [id number] 2.16.840.1.865892.3.579.2 .462 Social History Date Type Detail Facility Start: 04-16-2017 End: 01-14-2025 Tobacco smoking status [facility] Former smoker [facility] Work Phone: Start: 05-04-1965 End: 05-04-1980 History of tobacco use Current smoker [facility] Work Phone: Start: 1945 Sex Assigned At Not on file [facility] Work Phone: Start: 08-14-2021 End: 07-04-2023 Assertion Unknown if ever smoked [facility] Work Phone: Start: 08-24-2018 End: 04-03-2024 Tobacco use and exposure Never used [facility] Start: 08-24-2018 End: 04-03-2024 Alcohol intake Current non-drinker of alcohol (finding) [facility] Exposure to SARS-CoV-2 (event) Not sure [facility] Start: 10-24-2020 None [facility] Start: 02-15-2014 Spouse/ Signif icant Other [facility] Start: 10-24-2020 Non-smoker [facility] Start: 1945 Sex Assigned At Male [facility] Start: 05-04-1965 End: 05-04-1980 History of tobacco use Cigarette Smoker [facility] Start: 08-23-2020 End: 04-03-2024 History of Social function [facility] Start: 08-23-2020 End: 04-03-2024 Tobacco use panel [facility] Start: 07-16-2024 End: 07-30-2024 Sex Male (finding) [facility] NEGATED: Highlighted rowStart: 03-25-2019 End: 03-25-2019 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 [facility] Work Phone: Mental Status Date Assessment Result Facility 01-10-2022 Cognitive function Level Of Cons ciousness Awake;Alert;Appropriate;Follow s Commands [facility] Work Phone: Clinical Notes 08-23-2020 to 01-14-2025 Note Date & Type Note Facility 01-14-2025 Discharge summary [facility] 01-14-2025 Discharge summary Note Date/Time January 14, 2025 4:34pm [facility] Medical Records Department [address] [place] [address] Emergency Department Summary 01/14/25 MR#: [id number] Acct: [id number] Name: ARTURO CORONADO Rep #:[id number] : 1945 79 From: Saman Muniz MD PCP: Dr. Gauri Vila, DO Status:RE G ER Location: ED HPI History of Present Illness Chief Complaint: Male Pain/Injury Detail of Chief Complaint: Prostate pain and suicidal thoughts Informant: patient and spouse/S.O. Pain Onset: Today Context: Sudden Onset Timing: Intermittent Current Severity: Gone Maximum Severity: Severe Worsened by: Nothing Relieved by: Nothing Related History Sexually: Single Partner STD: No Epididymitis: No Bladder/Kidney Infection: No Enlarged Prostate: Yes Prostate Infection: No Prostate Cancer: No Narrative Narrative: Patient is a 79-year-old male who was seen a couple days ago for urinary retention had Lin placed. Patient presents because of intermittent severe pain. He was seen yesterday by Dr. Winston. States he had a prostate exam but was not told if there was anything abnormal. Patient has made verbal threats that he would kill himself. He does have access to guns. His threats are lethal. is concerned. Patient states he made those comments because he wants something done he cannot wait till February 02. He denies fever, chills night sweats. He denies headache, visual, ocular auditory symptoms. He denies cardiac or respiratory symptoms. He denies abdominal symptoms. Prior similar symptoms: Yes Recent Illness/Hospitalization: Yes [facility] Medical History Osteoarthritis of left knee Right shoulder strain Scabies Thyroid goiter Back pain due to injury Family history of colon cancer Seborrheic keratoses Cervical disc disease Cervical cord compression with myelopathy Painful neck Swallowing problem Chronic back pain Nonrheumatic mitral (valve) prolapse Essential (primary) hypertension Back pain Obstructive sleep apnea GERD (gastroesophageal reflux disease) Atherosclerosis of coronary artery of [place] heart without angina pectoris Hyperlipidemia Home Medications ?Medication ?Instructions ?Recorded ?Last Taken ?Type coenzyme G97-C-lurgncfsa 100 mg-20 1 ea PO DAILY 03/2507/03/20 History mg capsule multivitamin with folic acid 400 1 tab PO DAILY 07/03/20 History mcg tablet omega-3 fatty acids 1,000 mg 1,000 mg PO DAILY 9 07/03/20 History capsule aspirin 81 mg chewable tablet 81 mg PO DAILY #90 tabs 08/15/20 11/19/21 Rx nitroglycerin 0.4 mg sublingual 0.4 mg sublingual Q5-1 5M PRN chest 07/04/23 Unknown Rx tablet (Nitrostat) pain #25 tabs magnesium 200 mg tablet 200 mg PO QDAY 01/13/24 Unkn own History pregabalin 50 mg capsule 50 mg PO QHS PRN neck pain # 90 caps 02/05/24 Unknown Rx lisinopril 10 mg tablet 10 mg PO BID #180 tabs 06/02 Unknown Rx atorvastatin 80 mg tablet See Rx Instructions .Route 0 07/26/24 Unknown Rx .COMPLEX #90 tabs metoprolol tartrate 50 mg tablet 50 mg PO BID #180 tab s 07/26/24 Unknown Rx clopidogrel 75 mg tablet See Rx Instructions .Route 0 09/22/24 Unknown Rx .COMPLEX #90 tabs amlodipine 2.5 mg tablet 2.5 mg PO DAILY #90 tabs Unknown Rx Allergy/AdvReac Type Severity Reaction Status Date / Time niacin (From Niaspan Allergy Extreme Verified 01/14/25 14:04 Extended-Release) Itching cyclobenzaprine AdvReac Unknown Heart Verified 01/14/25 14:04 feels like wants to stop Family History [...] you feel safe at home: Yes [facility] ED Constitutional Constitutional ED: Denies chills, fever(s), subjective or sweats Eyes Eyes: Denies blurry vision or change in vision Cardiovascular Cardiovascular: Denies chest pain or palpitations Respiratory/Chest Respiratory/Chest: Denies cough, dyspnea or dyspnea on exertion Gastrointestinal Gastrointestinal: Denies abdominal pain, diarrhea, nausea or vomiting Genitourinary Genitourinary ED: Reports other Details: Patient has indwelling Lin. He complains of pain in the perineal region when he sits. He denies testicular pain or scrotal swelling. ; Denies dysuria, hematuria or urinary frequency Musculoskeletal Musculoskeletal: Denies arthralgias, back pain or myalgias Integumentary Denies rash Neurologic Neurologic: Denies paresthesias or weakness Psychiatric Psychiatric: Reports depression and suicidal thoughts; Denies anxiety Endocrine Endocrinology: Denies polydipsia, polyphagia or polyuria Hematologic/Lymphatic Hematologic/Lymphatic: Denies easy bleeding or easy bruising EXAM Physical Exam Const Vital Signs: 01/14/25 14:04 01/14/25 15:33 01/14/25 16:00 Temperature 98.4 F Temperature Source Temporal Pulse Rate 68 69 88 Respiratory Rate 18 16 16 Blood Pressure 165/86 H 155/70 H 138/70 H Blood Pressure Mean 112 98 92 Pulse Ox 98 100 98 Oxygen Delivery Method Room Air Positive well nourished and well developed General Appearance ED: well developed and NAD; Negative for pallor HEENT Reports moist mucous membranes normocephalic and atraumatic Eyes PERRL and EOMs intact bilaterally General Eye ED: Negative for pale conjunctiva or scleral icterus Neck no lymphadenopathy, supple and no JVD Resp normal respiratory effort and clear to auscultation bilaterally Cardio regular rate, regular rhythm, S1 normal heart sound, S2 normal heart sound and no murmurs GI non-tender, non-distended and no masses no CVA tenderness Narrative: Patient tested send bilateral. No testicular tenderness. There is no swelling of the scrotum. Rectal exam reveals an enlarged prostate. The prostate is not boggy or tender nor is it warm. Back/Spine no CVA tenderness Extremity normal to inspection General Extremety ED: Negative for edema or pulses abnormal General Extremity: Negative for edema or pulses abnormal Neuro oriented x3, CN's II-XII intact bilaterally, moves all extremities and deep tendon reflexes 2+ bilaterally Sensorium / Orientation: alert Psych Mood & Affect: depressed Thought Process: normal thought process Thought Content: No normal thought content Skin General Skin Exam: Negative for jaundice or pallor Lesions: no lesions Rashes: no rashes MDM MDM MDM Narrative Medical decision making narrative: Patient with intermittent severe pain. Patient states he cannot take the Lin. Suspect he is having spasms due to the Lin. Spoke with Dr. Glynn. Plan is admission and case management see him regarding his suicidal thoughts. Patient was pink slipped. Patient will be reassessed in 24 hours to determine if he needs placement. Lab Data Attestation: I reviewed the patient's lab results. Lab results narrative: CBC is unremarkable. Other tests are pending will need to be reviewed by admitting team since the surgical team is here to take him to the OR. Labs: Laboratory Results - last 24 hr 01/14/25 15:30 WBC 10.0 RBC 5.11 Hgb 15.5 Hct 45.5 MCV 89.0 MCH 30.3 MCHC 34.1 RDW Std Deviation 41.6 RDW Coeff of Leeroy 12.6 Plt Count 262 MPV 9.9 Immature Gran % (Auto) 0.600 Neut % (Auto) 78.4 H Lymph % (Auto) 11.4 L Mccormick % (Auto) 8.8 Eos % (Auto) 0.4 Baso % (Auto) 0.4 Absolute Neuts (auto) 7.8 H Absolute Lymphs (auto) 1.14 Nucleated RBC % 0 Ethyl Alcohol < 10.1 Discharge Plan Triage Chief Complaint: Male Pain/Injury Other Complaint: Suicidal ED Provider: Saman Muniz Dx/Rx/DC Orders Prescriptions: No Action omega-3 fatty acids 1,000 mg capsule 1,000 mg PO DAILY aspirin 81 mg tablet,chewable 81 mg PO DAILY Qty: 90 3RF nitroglycerin [Nitrostat] 0.4 mg tablet, sublingual 0.4 mg sublingual Q5-15M PRN (Reason: chest pain) Qty: 25 3RF Rx Instructions: do not exceed 3 doses per episode magnesium 200 mg tablet 200 mg PO QDAY multivitamin with folic acid 1 TABLET tablet 1 tab PO DAILY Patient Comments: Vitamins coenzyme M58-O-yrzcfywch 1 EACH capsule 1 ea PO DAILY Patient Comments: Supplement for cholestrol pregabalin 50 mg capsule 50 mg PO QHS PRN (Reason: neck pain) Qty: 90 0RF lisinopril 10 mg tablet 10 mg PO BID Qty: 180 3RF atorvastatin 80 mg tablet See Rx Instructions .ROUTE .COMPLEX Qty: 90 3RF Dose Instruction: TAKE 1 TABLET BY MOUTH EVERYDAY AT BEDTIME Rx Instructions: TAKE 1 TABLET BY MOUTH EVERYDAY AT BEDTIME metoprolol tartrate 50 mg tablet 50 mg PO BID Qty: 180 3RF clopidogrel 75 mg tablet See Rx Instructions .ROUTE .COMPLEX Qty: 90 3RF Dose Instruction: TAKE 1 TABLET BY MOUTH EVERY DAY Rx Instructions: TAKE 1 TABLET BY MOUTH EVERY DAY amlodipine 2.5 mg tablet 2.5 mg PO DAILY Qty: 90 0RF Primary Care Provider: Gauri Vila Print Language: Angolan What to do if you have Problems For any increased pain, shortness of breath, bleeding, nausea or vomiting, chest pain, or any unexpected problems, contact your Primary Care Provider. Call [facility] ([phone]) or report to the closest Emergency Room. Call 911 if necessary. 01/14/25 6594 <Electronically signed by Saman Muniz MD> Cosigner Signature (if applicable): CC: Dr. Gauri Vila, DO ~ Signed [facility] Work Phone: 1(872) 499-612707-09-2025 Progress [facility] [address] [place] [address] OFFICE VISIT Date of Service: 11/10/24 MR#: [id number] Acct: [id number] Name: ARTURO CORONADO Rep #: [id number] : 1945 Provider: SEGUN Garcia Age/Sex: 79/M Location: [facility] Status: Signed HPI HPI History of [...] nonobstructive coronary arterydisease with previously placed stent tohis LAD patent. He does continue to have chest pain that radiates around to his back. It is on the right. He does not feel that this is cardiac. It can last hours. He does not need to use any NTG. He feels that thisis the same as what he has been having for years. His Bp at home has been stable. Activity torres, hechopped woosfor a few months without issues. 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 Required: No Accompanied by: Self Is patient in pain?: No Allergies niacin (From Niaspan Extended-Release) Allergy (Verified 11/10/24 14:59) Extreme Itching cyclobenzaprine Adverse Reaction (Unknown, Verified 11/10/24 14:59) Heart feels like wants to stop Medications ?Medication ?Instructions ?Recorded ?Confirmed ?Type coenzyme D90-H-ezstlludf 100 mg-20 1 ea PO DAILY 03/2511/10/24 History mg capsule multivitamin with folic acid 400 1 tab PO DAILY 11/10/24 History mcg tablet omega-3 fatty acids 1,000 mg 1,000 mg PO DAILY 11/10/24 History capsule aspirin 81 mg chewable tablet 81 mg PO DAILY #90 tabs 08/15/20 11/10/24 Rx nitroglycerin 0.4 mg sublingual 0.4 mg sublingual Q5-1 5M PRN chest 07/04/23 11/10/24 Rx tablet (Nitrostat) pain #25 tabs magnesium 200 mg tablet 200 mg PO QDAY 01/13/2401/27 History pregabalin 50 mg capsule 50 mg [...] year?: Yes (slipped on ice in driveway) [facility] Medical History Osteoarthritis of left knee Right shoulder strain Scabies Thyroid goiter Back pain due to injury Family history of colon cancer Seborrheic keratoses Cervical disc disease Cervical cord compression with myelopathy Painful neck Swallowing problem Chronic back pain Nonrheumatic mitral (valve) prolapse Essential (primary) hypertension Back pain Obstructive sleep apnea GERD (gastroesophageal reflux disease) Atherosclerosis of coronary artery of [place] heart without angina pectoris Hyperlipidemia Surgical History [...] nuclear imaging demonstrate relatively normal tracer uptake andmyocardial perfusion appearing within normal limits with no myocardial perfusion changes considereddiagnostic for associated stress- induced myocardial ischemia. 2. The gated Cardiolite study [...] - Pure hypercholesterolemia, unspecified; E78.00 - Pure hypercholesterolemia,unspecified; E78.0 - Pure hypercholesterolemia Plan: Laboratory Tests 11/06/24 09:56 Cholesterol 130 LDL Cholesterol, Calc 74 HDL Cholesterol 41 These are managed by his PCP, he will continue with current dose of statin. (3) Nonrheumatic mitral (valve) prolapse: Status: Chronic Plan: This is mild, will continue to monitor with echocardiograms as deemed appropriate. (4) History of coronary artery stent placement: Status: Resolved Comment: PZZ-HWM-Ojaa LAD and POBA-D1 05/16/2010 Plan: Stable, patient does not have any symptoms of angina. Did review heart cath [id number]. We will continue with current medical management. If he has any chest pain that is concerning he will go to the ER. 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 Gauri Vila, DO ~ [facility]07-09-2025 Progress note Author Carmen Garcia [facility] Note Date/Time November 10, 2024 3:33p [facility] [address] [place] [address] OFFICE VISIT Date of Service: 11/10/24 MR#: [id number] Acct: [id number] Name: ARTURO CORONADO Rep #: [id number] : 1945 Provider: SEGUN Garcia Age/Sex: 79/M Location: [facility] Status: Signed HPI HPI History of [...] Monitor Intake Visit Reasons: 4 M FU Telemarketing Sales Representative Required: No Accompanied by: Self Is patient in pain?: No Allergies niacin (From Niaspan Extended-Release) Allergy (Verified 11/10/24 14:59) Extreme Itching cyclobenzaprine Adverse Reaction (Unknown, Verified 11/10/24 14:59) Heart feels like wants to stop Medications ?Medication ?Instructions ?Recorded ?Confirmed ?Type coenzyme P36-E-otzkbmbnx 100 mg-20 1 ea PO DAILY 03/2511/10/24 [...] 200 mg tablet 200 mg PO QDAY 01/13/2401/27 History pregabalin 50 mg capsule 50 mg [...] year?: Yes (slipped on ice in driveway) [facility] Medical History Osteoarthritis of left knee Right shoulder strain Scabies Thyroid goiter Back pain due to injury Family history of colon cancer Seborrheic keratoses Cervical disc disease Cervical cord compression with myelopathy Painful neck Swallowing problem Chronic back pain Nonrheumatic mitral (valve) prolapse Essential (primary) hypertension Back pain Obstructive sleep apnea GERD (gastroesophageal reflux disease) Atherosclerosis of coronary artery of [place] heart without angina pectoris Hyperlipidemia Surgical History [...] coronary artery stent placement: Status: Resolved Comment: IDQ-ZTE-Qwts LAD and POBA-D1 05/16/2010 Plan: Stable, patient does not have any symptoms of angina. Did review heart cath [id number]. We will continue with current medical management. If he has any chest pain that is concerning he will go to the ER. 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 Gauri Vila, DO ~ [facility] Work Phone: 1(265) 769-860707-07-2025 Progress [facility] [address] [place] [address] OFFICE VISIT Date of Service: 11/08/24 MR#: [id number] Acct: [id number] Name: ARTURO CORONADO Rep #: [id number] : 1945 Provider: Dr. Tristen Person MD Age/Sex: 79/M Location[facility] Status: Signed Intake Vital Signs 10/12/24 14:20 [...] Medications ?Medication ?Instructions ?Recorded ?Confirmed ?Type coenzyme F02-Q-zqskmgneg 100 mg-20 1 ea PO DAILY 03/2511/08/24 [...] you fallen in the past year?: Yes [facility] Medical History Osteoarthritis of left knee Right shoulder strain Scabies Thyroid goiter Back pain due to injury Family history of colon cancer Seborrheic keratoses Cervical disc disease Cervical cord compression with myelopathy Painful neck Swallowing problem Chronic back pain Nonrheumatic mitral (valve) prolapse Essential (primary) hypertension Back pain Obstructive sleep apnea GERD (gastroesophageal reflux disease) Atherosclerosis of coronary artery of [place] heart without angina pectoris Hyperlipidemia Surgical History [...] made by me, Dr. Sherie MD 11/08/24 0209. Part of today?s visit was documented by [...] Performing Provider: Edwar Person MD Performing Location: [facility] Administered by: Edwar Person MD on 11/08/24 13:41 Dose Route Admin Location Dispensed Lot Number Expiration Date NDC Share Holder 10 mg intra-articular left knee 2 mL [id number] 03/08/25 [address]-4 [employer] Coding Level of Care Code Attention Blacktop Spreader Diagnoses Osteoarthritis of left knee M17.12 Comment [...] n > Date _ Edwar Person MD Cosigner Signature: Date (if applicable) CC: ~ [facility] [id number] Progress [facility] [address] [address] OFFICE VISIT Date of Service: 10/25/24 MR#: [id number] Acct: [id number] Name: ARTURO CORONADO Rep #: [id number] : 1945 Provider: Dr. Tristen Person MD Age/Sex: 79/M Location[place] [facility] Status: Signed Intake Vital Signs 10/12/24 14:20 [...] Medications ?Medication ?Instructions ?Recorded ?Confirmed ?Type coenzyme F78-Q-pvqawkgzk 100 mg-20 1 ea PO DAILY 03/2510/25/24 [...] 200 mg tablet 200 mg PO QDAY 01/13/24/07/27 History pregabalin 50 mg capsule 50 mg [...] reflux disease) Atherosclerosis of coronary artery of [place] heart without angina pectoris Hyperlipidemia Surgical History [...] Performing Provider: Edwar Person MD Performing Location: [facility] Administered by: Edwar Person MD on 10/25/24 13:49 Dose Route Admin Location Dispensed Lot Number Expiration Date NDC Share Holder 20 mg intra-articular Left knee 2 mL [id number] 03/08/25 [address]-1 [employer] Coding Level of Care Code Attention Jeffrey Diagnoses Osteoarthritis of left knee M17.12 Comment L knee OA, euflexxa 05/07. Assessment and Plan Assessment and Plan (1) [...] reducing pain. 3. Medications What they are: Zoly-lfm-jzvxpyj pain relievers like ibuprofen, naproxen, or acetaminophen. [...] erythema and No swelling 10/25/24 1359 n > Date _ Edwar Person MD Cosign Signature: Date (if applicable) CC: ~ [facility]06-23-2025 Progress note Author Edwar Person [facility] Note Date/Time October 25, 2024 1:59 pm [facility] [address] [place] [address] [address] [place] [address] OFFICE VISIT Date of Service: 10/25/24 MR#: [id number] Acct: [id number] Name: ARTURO CORONADO Rep #: [id number] : 1945 Provider: Dr. Tristen Person MD Age/Sex: 79/M Location: [facility] Status: Signed Intake Vital Signs 10/12/24 14:20 [...] Medications ?Medication ?Instructions ?Recorded ?Confirmed ?Type coenzyme T63-M-cpebomtho 100 mg-20 1 ea PO DAILY 03/2510/25/24 [...] 200 mg tablet 200 mg PO QDAY 01/13/24/07/27 History pregabalin 50 mg capsule 50 mg [...] reflux disease) Atherosclerosis of coronary artery of [place] heart without angina pectoris Hyperlipidemia Surgical History [...] Performing Provider: Edwar Person MD Performing Location: [facility] Administered by: Edwar Person MD on 10/25/24 13:49 Dose Route Admin Location Dispensed Lot Number Expiration Date NDC Share Holder 20 mg intra-articular Left knee 2 mL [id number] 03/08/25 [address]-2 [employer] Coding Level of Care Code Attention Jeffrey Diagnoses Osteoarthritis of left knee M17.12 Comment L knee OA, euflexxa 05/07. Assessment and Plan Assessment and Plan (1) [...] reducing pain. 3. Medications What they are: Qlkv-kii-wagmwxe pain relievers like ibuprofen, naproxen, or acetaminophen. [...] ecchymosis, No erythema and No swelling 10/25/24 3509 <Electronically signed by Edwar maldonado MD> Date _ Edwar Person MD Cosigner Signature: Date (if applicable) CC: ~ [facility] Work Phone: 1(874) 588-784406-10-2025 Evaluation note* Diagnosis Onset Date Resolution Status [...] May 16, 2010 resolved November 10 2:42pm [facility] Work Phone: 1(607) 687-335006-10-2025 Evaluation note* Diagnosis Onset Date Resolution Status [...] May 16, 2010 resolved November 10 2:42pm Antiplatelet or antithrombotic long-term use acute January 14, 2025 4:36pm Painful bladder spasm acute Sep tember 2024 4:36pm Situational depression acute Se ptember 2024 4:36pm Suicidal thoughts acute Septemb er 2024 4:36pm Urinary retention due to benign prostatic hyperplasia acute January 14, 2025 4:36pm [facility] Work Phone: 1(959) 398-355903-19-2025 Evaluation note* Diagnosis Onset Date Resolution Status [...] left knee acute November 08, 2024 1:35pm [email or web address] Work Phone: 1(123) 424-821303-19-2025 Evaluation note* Diagnosis Onset Date Resolution Status [...] May 16, 2010 resolved November 10 2:42pm [email or web address] Work Phone: 1(962) 520-370603-19-2025 Radiology Diagnostic study note [facility] Imaging Services [address] [place] [address] Knee 4 or More Views MR#: [id number] Acct: [id number] Name: ARTURO CORONADO Rep #: [id number] : 1945 M 79 From: Helga Ferro MD PCP: Dr. Gauri Vila DO Status: RE G CLI Study:Knee 4 or More Views Date of Exam: 07/21/24 Exam# [id number] Ordering Dr: Do wander Vila DO PROCEDURE: KNEE 4 OR MORE [...] internal derangement, recommend CT/MRI, asindicated. Reading Location: [id number] CC: Dr. Gauri Vila DO ~ Nautical Instrument Mechanic: Signed [facility]03-05-2025 Evaluation note* Diagnosis Onset Date Resolution Status [...] right wrist acute October 12, 2024 2:14pm [facility] Work Phone: [phone]) 724-521403-05-2025 Evaluation note* Diagnosis Onset Date Resolution Status [...] left knee acute October 25, 2024 1:33pm [email or web address] Work Phone: 1(216) 175-416703-05-2025 Evaluation note* Diagnosis Onset Date Resolution Status [...] left knee acute November 01, 2024 1:37pm [email or web address] Work Phone: 1(210) 731-592612-11-2024 Evaluation note* Diagnosis Onset Date Resolution Status Admit Date Gastrocnemius strain, left acute April 14, 2024 4:20pm Essential (primary) hypertension chronic July 07, 2024 2:14pm Hyperlipidemia chronic July 07, 2024 2:14pm Nonrheumatic mitral (valve) prolapse chronic July 07, 2024 2:14pm History of coronary artery stent placement May 16, 2010 resolved July 07 2:14pm [facility] Work Phone: 1(170) 122-104912-11-2024 Evaluation note* Diagnosis Onset Date Resolution Status [...] 3:12pm Chronic pruritus chronic July 212024 3:12pm [facility] Work Phone: 1(448) 181-236111-30-2024 NoteHNO ID: [id number] Author: MANDY LAZARO PA-C Service: ? Author Type: Physician Bull Bucker Type: Progress Notes Filed: 04/03/2024 09:59 Note Text: This note was created using [employer] Software[employer]. Subjective Arturo Coronado is a 79 year [...] the emergency department. He will go to [facility] [address]. 2. History of DVT (deep vein thrombosis) - ICD9: V12.51, ICD10: Z86.718 [facility]11-30-2024 History of Present illness Narrative* Mandy Lazaro PA-C - 04/03/2024 9:53 AM EST This note was created using [employer]. Subjective Arturo Coronado is a 79 year [...] to the emergency department.He will go to [facility] [address] the [address]. 2. History of DVT (deep vein thrombosis) - ICD9: V12.51, ICD10: Z86.718 Mandy Lazaro PA-C [facility] History of Present illness Narrative* Bib Franz MD - 07/15/2023 2:22 PM EDT Images from the original note were not included. Patient ID: Arturo Coronado is a 78 y.o. male Subjective: Arturo Coronado is a 78 y.o. male who returns to our office for follow up of: multinodular goiter. Patient status post FNA biopsy of bilateral nodules 11/15/11 at [facility] [place]. Mr. Coronado is a 75-year-old male patient has a history of multinodular goiter which was biopsied backin November 2011, found to be benign. He was last seen here in August, and is here for 3-year follow-up. He had an ultrasound done at [facility] on 07/10/23 along with TFTs. Results arenoted [...] 1.29, FT4--1.13 11/15/11: (FNA biopsies done at [facility], likely by Dr. Ratliff) A. THYROID [...] doppler flow. 04/09/17 thyroid ultrasound performed at [facility] Comparison: 03/29/16 Right lobe: 1.5 x [...] their small size. 07/10/2023 Ultrasound of thyroid [facility] Comparison 08/16/2020 Findings: Left thyroid lobe [...] MD 07/15/23 3:03 PM documented in this [id number] History of Present illness Narrative* Bib Franz MD - 07/08/2023 8:47 AM EST Pt requests follow up appt. Will order ultrasound and TFTs, and follow up appt after testing. CD documented in this [id number] History of Present illness Narrative* Bib Franz MD - 08/23/2020 12:58 PM EDT Patient ID: Arturo Coronado is a 75 y.o. male Subjective: Arturo Coronado is a 75 y.o. male who returns to our office for follow up of: multinodular goiter. Patient status post FNA biopsy of bilateral nodules 11/15/11 at [facility] [place]. Mr. Coronado is a 75-year-old male patient has a history of multinodular goiter which was biopsied backin November 2011, found to be benign. He was last seen here in August, and is here for 2-year follow-up. He had an ultrasound done at [facility] on 08/16/2020 along with TFTs. [...] 1.29, FT4--1.13 11/15/11: (FNA biopsies done at [facility], likely by Dr. Ratliff) A. THYROID [...] doppler flow. 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 Essential (primary) hypertension chronic Hyperlipidemia chronic Nonrheumatic mitral (valve) prolapse [facility] Work Phone: Evaluation note* Diagnosis Onset Date Resolution Status Carpal tunnel syndrome of right wrist acute Constipation by delayed colonic transit acute Family history of colon cancer acute Atherosclerosis of coronary artery of [place] heart without angina pectoris chronic Essential (primary) hypertension chronic Hyperlipidemia chronic Nonrheumatic mitral (valve) prolapse chronic Carpal tunnel syndrome of right wrist acute [facility] Work Phone: Evaluation note* Diagnosis Onset Date Resolution Status Atherosclerosis of coronary artery of [place] heart without angina pectoris chronic Essential (primary) hypertension chronic Hyperlipidemia chronic Nonrheumatic mitral (valve) prolapse chronic Carpal tunnel syndrome of right wrist acute Back pain due to injury acut e Carpal tunnel syndrome of right wrist acute Rotator cuff injury noneacti ve Chest pain acute Essential (primary) hypertension chronic Hyperlipidemia chronic Nonrheumatic mitral (valve) prolapse chronic [facility] Work Phone: Evaluation note* Diagnosis Onset Date [...] Skin lesion of right external ear acute [facility] Work Phone: Evaluation note* Diagnosis Onset Date Resolution Status Cervical disc disease chroni c Essential (primary) hypertension chronic Scabies acute Scabies acute Cervical disc disease chroni c Hypertension chronic [facility] Work Phone: Evaluation noteNo assessment information available [facility] Work Phone: Evaluation note* Diagnosis Onset Date Resolution Status Cervical disc disease chroni c Hypertension chronic Acute upper respiratory infection acute Cervical disc disease chroni c Essential (primary) hypertension chronic Right shoulder strain acute [facility] Work Phone: Evaluation note* Diagnosis Onset Date [...] of coronary artery stent placement May resolved [facility] Work Phone: Evaluation note* Diagnosis Goiter, nontoxic, multinodular- Primary Nontoxic multinodular goiter [facility] Diagnosis Goiter, nontoxic, multinodular- Primary Nontoxic multinodular goiter [facility] Diagnosis Left leg pain- Primary Pain in limb History of DVT (deep vein thrombosis) Personal history of venous thrombosis and embolism [facility] Work Phone: [facility] Work Phone[facility] Work Phone: Hospital Discharge instructions Additional Instructions Please continue your medications as directed by your family doctor but discussed with him about increasing your lisinopril or adding a third blood pressure medication for stricter blood pressure control and return to the ER should you have any further concernsWMedina Hospital Work Phone: Hospital Discharge instructionsAdditional Instructions Please continue all the medication given to you by your urologist. Keep the catheter in place and follow-up with the urologist to discuss removal. Return to the ER should you have any further concernsWMedina Hospital Work Phone: Progress note Author Edwar Person [facility] Note Date/Time November 08, 2024 1:58p m [facility] [address] [place], [place] [id number] OFFICE VISIT Date of Service: 11/08/24 MR#: [id number] Acct: [id number] Name: ARTURO CORONADO René Rep #: [id number] : 1945 Provider: Dr. Tristen Person MD Age/Sex: 79/M [place] [facility] [place] Status: Signed Intake Vital Signs 10/12/24 14:20 [...] Medications ?Medication ?Instructions ?Recorded ?Confirmed ?Type coenzyme [id number] 100 mg-20 1 ea PO DAILY 03/2511/08/24 [...] you fallen in the past year?: [facility] Osteoarthritis of left knee Right shoulder strain Scabies Thyroid goiter Back pain due to injury Family history of colon cancer Seborrheic keratoses Cervical disc disease Cervical cord compression with myelopathy Painful neck Swallowing problem Chronic back pain Nonrheumatic mitral (valve) prolapse Essential (primary) hypertension Back pain Obstructive sleep apnea GERD (gastroesophageal reflux disease) Atherosclerosis of coronary artery of [place] heart without angina pectoris Hyperlipidemia Surgical History [...] the decisions made by me, Dr. Edwar Perosn MD 11/08/24 [id number]. Part of today?s visit was documented by [...] Performing Provider: Edwar Person MD Performing Location: [facility] Administered by: Edwar Person MD on 11/08/24 13:41 Dose Route Admin Location Dispensed Lot Number Expiration Date [facility] Share Holder 10 mg intra-articular left knee 2 mL [id number] 03/08/25 [address]-6 [facility] Coding Level of Care Code Attention Jeffrey Diagnoses Osteoarthritis of left knee M17.12 Comment Left knee intra-articular Euflexxa injection Assessment and Plan Assessment and Plan (1) Osteoarthritis of left knee: Status: Acute Plan: L knee OA, euflexxa 07/05. FU 3 months of PRN. Encouraged him [...] ecchymosis, No erythema and No swelling 11/08/24 [id number] <Electronically signed by Edwar maldonado MD> Date _ Edwar Person MD Cosign Signature: Date (if applicable) CC: ~ [facility] Work Phone: Reason for referral (narrative)No reason for referral information availableWMedina Hospital Work Phone: Assessments Diagnosis Multinodular goiter (nontoxi c) - Primary Nontoxic multinodular goiter Diagnosis Multinodular goiter (nontoxic)- Primary Nontoxic multinodular goiter Summary Purpose Family History Relationship Condition Age at Onset Recorded Date/T [...] Malignant neoplasm of colon Unknown Advance Directives Documents on File Type Date Recorded 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 Advance Directives and Living Will Documents on File Type Date Recorded 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 Advance Directives and Livin g Will 08/23/2020 12:38 PM Advance Directive Response Recorded Date/ Time Advance Directives No February 15, 2014 10:14am Living Will Yes July 04, 2020 1:11am Power of Nuclear Auxiliary Operator Yes July 04 1:11am Advance Directive Response Recorded Date/ Time Name of Medical Power of Nuclear Auxiliary Operator SHANTA MIDDLETON () October 17, 2021 2:40pm Advance Directives No February 15, 2014 10:14am Living Will Yes October 17, 2021 2:40pm Power of Nuclear Auxiliary Operator Yes October 17 2:40pm Advance Directive Response Recorded Date/ Time Name of Medical Power of Nuclear Auxiliary Operator SHANTA MIDDLETON () October 17, 2021 2:40pm Advance Directives on File No November 19, 2021 7:45am Advance Directives Yes November 19 7:45am Living Will Yes November 19, 2021 7:45am Power of Nuclear Auxiliary Operator Yes November 19 7:45am Advance Directive Response Recorded Date/ Time Name of Medical Power of Nuclear Auxiliary Operator SHANTA MIDDLETON () October 17, 2021 2:40pm Advance Directives on File No November 19, 2021 7:45am Name of Medical Power of Nuclear Auxiliary Operator --STEVE E January 10, 2022 12:03am Advance Directives Yes November 19 7:45am Living Will Yes January 10 12:03am Power of Nuclear Auxiliary Operator Yes January 10, 2022 12:03am Advance Directive Response Recorded Date/ Time Name of Medical Power of Nuclear Auxiliary Operator --STEVE E January 09, 2022 11:03pm Advance Directives Yes November 19 6:45am Living Will Yes January 09 022 11:03pm Power of Nuclear Auxiliary Operator Yes January 09, 2022 11:03pm Advance Directive Response Recorded Date/ Time Advance Directives Yes November 19 7:45am Living Will No September 20, 2022 1 :14pm Power of Nuclear Auxiliary Operator No September 20, 2022 1:14pm Advance Directive Response Recorded Date/ Time Advance Directives Yes April 10, 2023 12:15pm Living Will No April 10 12:15pm Power of Nuclear Auxiliary Operator No April 10, 2023 12:15pm Advance Directive Response Recorded Date/ Time Advance Directives Yes May 21, 2023 12:39pm Living Will No May 21 12:39pm Power of Nuclear Auxiliary Operator No May 21, 2023 12:39pm Advance Directive Response Recorded Date/ Time Advance Directives Yes May 21, 2023 1:39pm Living Will No May 21 1:39pm Power of Nuclear Auxiliary Operator No May 21, 2023 1:39pm Advance Directive Response Recorded Date/ Time Living Will No May 21 1:39pm Power of Nuclear Auxiliary Operator No May 21, 2023 1:39pm Living Will No April 03 11:47am Power of Nuclear Auxiliary Operator No April 03, 2024 11:47am Advance Directives Yes October 01 1:34pm Advance Directive Response Recorded Date/ Time Living Will No May 21 1:39pm Do you have a Healthcare Power of Nuclear Auxiliary Operator? No May 21, 2023 1:39pm Living Will No April 03 11:47am Do you have a Healthcare Power of Nuclear Auxiliary Operator? No April 03, 2024 11:47am Advance Directives Yes October 01 1:34pm Advance Directive Response Recorded Date/ Time Living Will No May 21 1:39pm Do you have a Healthcare Power of Nuclear Auxiliary Operator? No May 21, 2023 1:39pm Advance Directives Yes October 01 1:34pm Advance Directive Response Recorded Date/ Time Advance Directives Yes October 01 1:34pm Advance Directive Response Recorded Date/ Time Do you have a Healthcare Power of Nuclear Auxiliary Operator? No January 12, 2025 9:40pm Advance Directives Yes October 01 1:34pm Advance Directive Response Recorded Date/ Time Do you have a Healthcare Power of Nuclear Auxiliary Operator? No January 14, 2025 3:33pm Do you have a Healthcare Power of Nuclear Auxiliary Operator? No January 12, 2025 9:40pm Advance Directives Yes October 01 1:34pm History of Present Illness * Jacqui Olivas, LEASE ATTENDANT - 08/24/2018 1:16 PM EDT Patient ID: Arturo Coronado is a 73 y.o. male Subjective: Arturo Coronado is a 73 y.o. male who returns to our office for follow up of: multinodular goiter. Patient status post FNA biopsy of bilateral nodules 11/15/11 at [facility] [place]. Mr. Coronado is a 73-year-old male patient [...] doppler flow. 04/09/17 thyroid ultrasound performed at [facility] Comparison: 03/29/16 Right lobe: 1.5 x [...] evaluation for patient's above complaints. He states Vadimie has an ENT and will call their [...] Instructions Instruction Description Start Date CompletedPlease follow-up [facility] Primary Care Physician or Balance Wheel Screw Hole Driller for treatment or adjustment of medication regarding [...] colon cancer Atherosclerosis of coronary artery of [place] heart without angina pectoris Essential (primary) hypertension Hyperlipidemia Nonrheumatic mitral (valve) prolapse Chief Complaint CONSTIPATION ISSUES RIGHT CTS RIGHT CTS 1 Y FU CHK UP BACK PAIN Reason for Visit Carpal tunnel syndro me of right wrist Constipation by delayed colonic transit Family history of colon cancer Atherosclerosis of coronary artery of [place] heart without angina pectoris Essential (primary) hypertension Hyperlipidemia Nonrheumatic mitral (valve) prolapse Carpal tunnel syndrome of right wrist Chief Complaint RIGHT CTS RIGHT CTS 1 Y FU CHK UP BACK PAIN [facility] 3 M FU E ORDER CORINARY ARTERY DISEASE, CHEST PAIN Reason for Visit Atherosclerosis of c oronary artery of [place] heart without angina pectoris Essential (primary) hypertension Hyperlipidemia Nonrheumatic mitral (valve) prolapse Carpal tunnel syndrome of right wrist Back pain due to injury Carpal tunnel syndrome of right wrist Rotator cuff injury Chest pain Essential (primary) hypertension Hyperlipidemia Nonrheumatic mitral (valve) prolapse Chief Complaint CHK UP BACK PAIN [facility] 3 M FU E ORDER CORINARY ARTERY [...] Chief Complaint CHK UP BACK PAIN [facility] 3 M FU E ORDER CORINARY ARTERY [...] 2024 2:14 pm Nonrheumatic mitral (valve) prolapse [facility] 2024 2:14pm History of coronary [...] 2024 2:14 pm Nonrheumatic mitral (valve) prolapse [facility] 2024 2:14pm History of coronary artery stent [...] 2024 2:14 pm Nonrheumatic mitral (valve) prolapse [facility] 2024 2:14pm History of coronary artery stent placeme nt July 07, 2024 2:14pm Knee pain, left July 21, 2024 3:1 2pm Chronic pruritus July 21, 2024 3:1 2pm Carpal tunnel syndrome of right wrist Ap ril 2024 10:41am Knee pain, left September 01, 2024 10: 41am Carpal tunnel syndrome of right wrist Ju 2024 2:14pm Chief Complaint Admit Date INT [...] 2024 2:14 pm Nonrheumatic mitral (valve) prolapse [facility] 2024 2:14pm History of coronary artery stent [...] 2024 2:14 pm Nonrheumatic mitral (valve) prolapse Jul 2:14pm History of coronary artery stent placeme [...] 1:33pm Osteoarthritis of left knee November 01 2 025 1:37pm Chief Complaint Admit Date [...] 2:14pm Osteoarthritis of left knee October 25, 025 1:33pm Osteoarthritis of left knee November [...] M FU November 10, 2024 2:42p m UNABLE TO PEE January 12, 2025 9:05pm Chief Complaint Admit Date RIGHT HAND October 12, 2024 2:14 pm LEFT KNEE October 25, 2024 1:33 pm LEFT KNEE November 01, 2024 1:37 pm EORDER November 06, 2024 9:52a m LEFT KNEE November 08, 2024 1:35p m 4 M FU November 10, 2024 2:42p m UNABLE TO PEE January 12, 2025 9:05pm REDUCE PROSTATE January 14, 2025 4:36pm Reason for Visit Admit Date Carpal tunnel [...] stent placeme nt November 10, 2024 2:42pm Antiplatelet or antithrombotic long-term use January 14, 2025 4:36pm Painful bladder spasm January 14 4:36pm Situational depression January 14 4:36pm Suicidal thoughts January 14, 2025 4:36pm 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 January 14, 2025 4:36pm Reason for Referral Specialty Diagnoses / Procedures Referred By Sharla t Referred To Contact Diagnoses Goiter, nontoxic, multinodular Procedures US Thyroid Only Bib Franz MD [address] [place] [id number] Referral ID Status Reason Start Date Expiration Date V isits Requested Visits Authorized [id number] Authorized 07/08/2023 07/07/2024 1 1 Additional Source Comments (unrecognized sect ion and content) No Status Records FoundNo Status Records FoundNo Status Records FoundNo Status Records Found INFORMATION SOURCE (unrecogn ized section and content) DATE CREATED AUTHOR 05/01/2018 [facility] DATE CREATED AUTHOR AUTHOR'S ORGANIZ ATION 08/11/2023 [facility] DATE CREATED AUTHOR AUTHOR'S ORGANIZ ATION 04/04/2024 [facility] DATE CREATED AUTHOR AUTHOR'S ORGANIZ ATION [facility]/12/20[facility] Reason for Visit (unrecogniz ed [...] Inactive Member Role Status Dates Dr. Gauri Vlia , DO Primary Care Provider Active Fer Carr MD Attending Provider, Emergency Provid er Active Team Status: Inactive Member Role Status Dates Dr. Gauri Vila , DO Primary Care Pr ovider, Attending Provider, Referring Provider Active Team Status: Inactive Member Role Status Dates Dr. Gauri Vila , DO Primary Care Provider, Referr ing Provider Active Robin CAST PA Attending Provider Active Team Status: Inactive Member Role Status Dates Dr. Gauri Vila , DO Primary Care Provider, Referr ing Provider Active Omi CAST PA Attending Provider Active Team Status: Inactive Member Role Status Dates Dr. Gauri Vila , DO Primary Care Provider Active SEGUN Krishnamurthy Attending Provider, Referring Pr ovider Active Team Status: Inactive Member Role Status Dates Dr. Gauri Vila , DO Primary Care Provider, Referr ing Provider Active Dr. Cam Bucio , DO Attending Provider Active Team Status: Inactive Member Role Status Dates Dr. Gauri Vila DO Primary Care Provider, Referr ing Provider Active Dr. Adam Maloney MD Attending Provider Active Team Status: Inactive Member Role Status Dates Dr. Gauri Vila DO Primary Care Provider Active Dr. 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 Gauri Vila DO Primary Care Provider Active Dr. Bib Franz MD Attending Provider, Referring Provider Active Team Status: Active Member Role Status Dates Dr. Gauri Vila DO Primary Care Provider Active Dr. Bib Franz MD Attending Provider, Referring Provider Active Coin Machine Mechanic Relationship Specialty Start Date End Date Gauri Vila DO [address] [place] [address] PCP - [facility] 04/04/16 Coin Machine Mechanic Relationship Specialty Start Date End Date Gauri Vila DO [address] [place] [id number] PCP - General Family Medicine 04/03/24 Team [...] 14, 2024 End: April 14, 2024 Dr. Guari Vila DO Attending Provider Active Start: April [...] 04, 2024 End: August 04, 2024 Carmen CAST, PA Attending Provider Active Start: August 04, [...] 05, 2024 End: July 05, 2024 Carmen CAST, PA Referring Provider Active Start: July 05, [...] 2024 End: August 04, 2024 Carmen Garcia PA PA Attending Provider Active Start: August 04, 2024 End: August 04, 2024 Carmen Garcia PA PA Referring Provider Active Start: August 04, [...] 21, 2024 End: July 21, 2024 Dr. Garui Vila DO Referring Provider Active Start: July [...] 04, 2024 End: August 04, 2024 Carmen CAST PA Attending Provider Active Start: August 04, 2024 End: August 04, 2024 Carmen CAST PA Referring Provider Active Start: August 04, [...] End: November 06, 2024 Carmen CAST, PA Attending Provider Active Start: November 06, 2024 End: November 06, 2024 Carmen Garcia PA, PA Referring Provider Active Start: November 06, [...] October 25, 2024 End: October 25, 2024 Edawr Person MD Attending Provider Active St art: [...] End: November 06, 2024 Carmen CAST, PA Attending Provider Active Start: November 06, 2024 End: November 06, 2024 Caremn Garcia PA, PA Referring Provider Active Start: November 06, [...] 10, 2024 End: November 10, 2024 Carmen Garcia PA, PA Attending Provider Active Start: November 10, [...] December 31, 2024 End: December 31, 2024 Team Status: Active Member Role/Relationship Status Dates Dr. Gauri Vila DO Primary Care Provider Active Start: January 11, 2025 Dr. Spenser Winston MD Attending Provider Active Start: January 11, 2025 Dr. Spenser Winston MD Referring Provider Active Start: January 11, 2025 Team Status: Inactive Member Role/Relationship Status Dates Dr. Gauri Vila DO Primary Care Provider Active Start: January 12, 2025 End: January 13, 2025 Dr. Keshawn Davidson DO Emergency Provider Active Start: January 12, 2025 End: January 13, 2025 Team Status: Active Member Role/Relationship Status Dates Dr. Gauri Vila DO Primary Care Provider Active Start: January 14, 2025 Dr. Saman Muniz MD Emergency Provider Active Sta rt: January 14, 2025 Dr. Spenser Winston MD Attending Provider Active Start: January 14, 2025 Source Comments (unrecognize d section and content) In the event this informatio n is protected by the Federal Confidentiality of Alcohol and Drug Abuse Patient Records regulations: The Federal rules restrict any use of the information to criminally investigate or prosecute any alcohol or drug abuse patient.[facility] FOR RECORDS PERTAINING TO PATIENTS WHO [...] BE BASED ON THE PRIMARY CLINICAL RECORDS. [facility] [employer] [facility]. provides no warranty or guarantee of the accuracy or completeness of information in this document.
[2025-01-15] VITALS (7 sets, daily range): BP systolic 120–147; BP diastolic 63–89; PULSE 61–100; RESP 16–20; TEMP 36.7–37; O2SAT 94–98
[2025-01-15] MEDS: Cefazolin 1 GM/50 ML BAG IV ×2 (00:59→08:31)
--- NOTE | 2025-01-15 08:03 | PCM.DC.SUM ---
Providers Date of Admission: 01/14/25 Date of Discharge: 01/15/25 Primary Care Physician: Dr. Azam Haynes, DO Reason For Visit: TURP Medications at Discharge Home Medications coenzyme [id number] 100 mg-20 mg capsule 1 ea PO DAILY 03/25/13 multivitamin with folic acid 400 mcg tablet 1 tab PO DAILY 03/25/13 omega-3 fatty acids 1,000 mg capsule 500 mg PO DAILY 08/20/18 aspirin 81 mg chewable tablet 81 mg PO DAILY #90 tabs 08/15/20 Held on 01/14/25. Instructions: Resume on 01/28/25. nitroglycerin 0.4 mg sublingual tablet (Nitrostat) 0.4 mg sublingual Q5-15M PRN chest pain #25 tabs 07/04/23 magnesium 200 mg tablet 200 mg PO QDAY 01/13/24 pregabalin 50 mg capsule 50 mg PO QHS PRN neck pain #90 caps 02/05/24 lisinopril 10 mg tablet 10 mg PO BID #180 tabs 06/02/24 atorvastatin 80 mg tablet See Rx Instructions .Route .COMPLEX #90 tabs 07/26/24 metoprolol tartrate 50 mg tablet 50 mg PO BID #180 tabs 07/26/24 clopidogrel 75 mg tablet See Rx Instructions .Route .COMPLEX #90 tabs 09/22/24 Held on 01/14/25. Instructions: Resume on 01/28/25. amlodipine 2.5 mg tablet 2.5 mg PO DAILY #90 tabs 10/18/24 cephalexin 500 mg capsule 500 mg PO TID 01/14/25 finasteride 5 mg tablet 5 mg PO DAILY 01/14/25 phenazopyridine 100 mg tablet 100 mg PO TID 01/14/25 tamsulosin 0.4 mg capsule 0.4 mg PO QHS 01/14/25 Hospital Course Operations TURP Summary of Care Provided Hospital Course: Patient was taken to the emergency room because he is extremely stressed out about having a catheter and having lots of pain and bladder spasms so I offered to the immediate surgery for a TURP, Lin catheter removed today first day after surgery urine is fairly clear he knows there is no guarantees he will be able to urinate but hopefully he can urinate and go home today without a catheter he is feeling much better. Weight / BMI Weight Weight: 78.9 kg Body Mass Index (BMI) 24.3 ABG / Lab / Microbiology Data 01/14/25 15:30 01/14/25 15:30 Laboratory: Laboratory Results - last 24 hr 01/14/25 15:30: WBC 10.0, RBC 5.11, Hgb 15.5, Hct 45.5, MCV 89.0, MCH 30.3, MCHC 34.1, RDW Std Deviation 41.6, RDW Coeff of [place]eroy 12.6, Plt Count 262, MPV 9.9, Immature Gran % (Auto) 0.600, Neut % (Auto) 78.4 H, Lymph % (Auto) 11.4 L, [place] % (Auto) 8.8, Eos % (Auto) 0.4, Baso % (Auto) 0.4, Absolute Neuts (auto) 7.8 H, Absolute Lymphs (auto) 1.14, Nucleated RBC % 0, Sodium 133, Potassium 4.1, Chloride 98, Carbon Dioxide 20.0 L, Anion Gap 15, BUN 15, Creatinine 0.96, Est GFR (MDRD) Non-Af 82, BUN/Creatinine Ratio 15.2, Glucose 122 H, Calcium 9.4, Ethyl Alcohol < 10.1 01/14/25 16:23: Urine Color Yellow, Urine Clarity Sl. Cloudy, Urine pH 6.5, Ur Specific [place] 1.015, Urine Protein 30 H, Urine Glucose (UA) Normal, Urine Ketones 50 H, Urine Occult Blood 250 H, Urine Nitrite Positive H, Urine Bilirubin 3 H, Urine Urobilinogen 4 H, Ur Leukocyte Esterase 100 H, Urine RBC 0-5 SEEN, Urine WBC 0-5 SEEN, Ur Squamous Epith Cells 0-5 SEEN, Urine Bacteria 2+, Urine Mucus 0 SEEN, Urine Opiates Screen NEGATIVE, U Buprenorphine Qual NEGATIVE, Ur Oxycodone Screen NEGATIVE, Urine Methadone Screen NEGATIVE, Urine Fentanyl Screen NEGATIVE, Ur Barbiturates Screen NEGATIVE, Ur Phencyclidine Scrn NEGATIVE, Ur Amphetamines Screen NEGATIVE, U Benzodiazepines Scrn NEGATIVE, Urine Cocaine Screen NEGATIVE, U Cannabinoids Screen NEGATIVE D/C Instructions DC O2, CPAP, BIPAP Needs Home O2 Discharge instructions: No Meaningful Use Info Meaningful Use Meaningful Use Diagnoses (Choose all that apply): None applicable Discharge Plan Admission Admit Date/Time: 01/14/25 18:01 Primary Reason for Your Visit: turp Attending Provider: Spenser Winston Primary Care Provider: Azam Haynes Discharge Orders/Prescriptions Prescriptions: Continued omega-3 fatty acids 1,000 mg capsule 500 mg PO DAILY nitroglycerin [Nitrostat] 0.4 mg tablet, sublingual 0.4 mg sublingual Q5-15M PRN (Reason: chest pain) Qty: 25 3RF Rx Instructions: do not exceed 3 doses per episode magnesium 200 mg tablet 200 mg PO QDAY multivitamin with folic acid 1 TABLET tablet 1 tab PO DAILY Patient Comments: Vitamins coenzyme [id number] 1 EACH capsule 1 ea PO DAILY Patient Comments: Supplement for cholestrol tamsulosin 0.4 mg capsule 0.4 mg PO QHS phenazopyridine 100 mg tablet 100 mg PO TID cephalexin 500 mg capsule 500 mg PO TID finasteride 5 mg tablet 5 mg PO DAILY pregabalin 50 mg capsule 50 mg PO QHS PRN (Reason: neck pain) Qty: 90 0RF lisinopril 10 mg tablet 10 mg PO BID Qty: 180 3RF atorvastatin 80 mg tablet See Rx Instructions .ROUTE .COMPLEX Qty: 90 3RF Dose Instruction: TAKE 1 TABLET BY MOUTH EVERYDAY AT BEDTIME Rx Instructions: TAKE 1 TABLET BY MOUTH EVERYDAY AT BEDTIME metoprolol tartrate 50 mg tablet 50 mg PO BID Qty: 180 3RF amlodipine 2.5 mg tablet 2.5 mg PO DAILY Qty: 90 0RF Held aspirin 81 mg tablet,chewable 81 mg PO DAILY Qty: 90 3RF Hold Instructions: Resume on 01/28/25. clopidogrel 75 mg tablet See Rx Instructions .ROUTE .COMPLEX Qty: 90 3RF Hold Instructions: Resume on 01/28/25. Dose Instruction: TAKE 1 TABLET BY MOUTH EVERY DAY Rx Instructions: TAKE 1 TABLET BY MOUTH EVERY DAY Referrals / Follow Up: Azam Haynes DO [Primary Care Provider] - Spenser Winston MD [Med Staff - Active Staff] - Disposition Disposition (needs filled in before D/C Order can be placed): Home, Self Care
--- NOTE | 2025-01-15 10:15 | NURSING ---
aware per floor worker well service from her stand point patient has been cleared. no longer need for suicide precautions, patient may discharge home.
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
[2025-01-15] MEDS: 0.9% Saline Lock 10 ML Syringe IV ×2 (17:27→19:58)
[2025-01-16 06:06] VITALS: BP 144/83; PULSE 59; RESP 20; TEMP 36.7; O2SAT 99
[2025-01-16] MEDS: 0.9% Saline Lock 10 ML Syringe IV (06:17)
[2025-01-16 09:19] VITALS: BP 124/71; PULSE 68; RESP 17; TEMP 36.6; O2SAT 98
[2025-01-16 09:28] VITALS: PULSE 68
--- NOTE | 2025-01-16 11:59 | NURSING ---
Dr. Winston updated, pt just with dribble this void with some bloody urine and some clots prior. no abd pain. pt states it just stopped all of a sudden denies any abd pain/discomfort.
[2025-01-16 15:01] VITALS: BP 139/84; PULSE 65; RESP 16; TEMP 36.8; O2SAT 97
== END 2025-01-16 17:20 | disposition home or self-care (01) | DRG 714 ==
LOC: ED 16:36 → SDC 16:36 → MS3 17:01 → SDC 18:04 → MS3 18:04
PROVIDERS: Admitting Provider Urology; Emergency Provider Emergency Medicine; PCP Family Medicine; Visit Provider Urology
PROC: 0VT08ZZ Resection of Prostate, Via Natural or Artificial Opening Endoscopic (ICD-10-PCS; principal; 2025-01-14 17:00)
DX: N40.1 Benign prostatic hyperplasia with lower urinary tract symptoms (principal); E78.5 Hyperlipidemia, unspecified; I10 Essential (primary) hypertension; I25.10 Atherosclerotic heart disease of native coronary artery without angina pectoris; Z95.5 Presence of coronary angioplasty implant and graft; Z87.891 Personal history of nicotine dependence; R33.8 Other retention of urine; Z80.0 Family history of malignant neoplasm of digestive organs
CPT/HCPCS: 51702; 80048; 80307; 81001; 82077; 85025; 88305; 99283; 99285; A4216; J2405

== ENCOUNTER 2025-01-16 22:22 | Emergency (ER) | payer MEDICARE, OTHER, SELFPAY ==
[2025-01-16 22:23] VITALS: BP 157/91; PULSE 77; RESP 16; TEMP 36.8; O2SAT 99; BMI 24.0
--- NOTE | 2025-01-16 22:56 | EX.ED.DYSGE1 ---
HPI History of Present Illness Chief Complaint: Complaint Informant: patient Narrative Narrative: Patient is a 79-year-old male with history of hypertension hyperlipidemia and BPH. He recently underwent prostate surgery secondary to his BPH and having difficulty voiding. He states that he was in the hospital and that they was talk of providing a Lin catheter as he was having difficulty urinating. However he states he was able to walk throughout the day and began voiding. He states he was discharged home today around 4 PM. He states that he then was able to void at home 2 or 3 times. He states however he took a nap and when he awoke he had pressure sensation consistent with having to urinate. He states despite trying he could not get anything out and secondary to his he comes in for evaluation. He states that his last spontaneous voiding was roughly 2 hours ago. [facility] Medical History (Updated 01/17/25 @ 00:[address] Keshawn Davidson, DO) Osteoarthritis of left knee Right shoulder strain Scabies Thyroid goiter Back pain due to injury Family history of colon cancer Seborrheic keratoses Cervical disc disease Cervical cord compression with myelopathy Painful neck Swallowing problem Chronic back pain Nonrheumatic mitral (valve) prolapse Essential (primary) hypertension Back pain Obstructive sleep apnea GERD (gastroesophageal reflux disease) Atherosclerosis of coronary artery of [place] heart without angina pectoris Hyperlipidemia Home Medications ?Medication ?Instructions ?Recorded ?Last Taken ?Type coenzyme [id number] 100 mg-20 1 ea PO DAILY 03/25/13 01/13/25 08:30 History mg capsule multivitamin with folic acid 400 1 tab PO DAILY 03/25/13 01/13/25 08:30 History mcg tablet omega-3 fatty acids 1,000 mg 500 mg PO DAILY 08/20/18 01/13/25 08:30 History capsule aspirin 81 mg chewable tablet 81 mg PO DAILY #90 tabs 08/15/20 11/19/21 Rx Held on 01/14/25. Instructions: Resume on 01/28/25. nitroglycerin 0.4 mg sublingual 0.4 mg sublingual Q5-15M PRN chest 07/04/23 Unknown Rx tablet (Nitrostat) pain #25 tabs magnesium 200 mg tablet 200 mg PO QDAY 01/13/24 01/13/25 08:30 History pregabalin 50 mg capsule 50 mg PO QHS PRN neck pain #90 caps 02/05/24 Unknown Rx lisinopril 10 mg tablet 10 mg PO BID #180 tabs 06/02/24 01/13/25 22:00 Rx atorvastatin 80 mg tablet See Rx Instructions .Route 07/26/24 01/13/25 22:00 Rx .COMPLEX #90 tabs metoprolol tartrate 50 mg tablet 50 mg PO BID #180 tabs 07/26/24 01/13/25 22:00 Rx clopidogrel 75 mg tablet See Rx Instructions .Route 09/22/24 Unknown Rx Held on 01/14/25. .COMPLEX #90 tabs Instructions: Resume on 01/28/25. amlodipine 2.5 mg tablet 2.5 mg PO DAILY #90 tabs 10/18/24 01/13/25 22:00 Rx cephalexin 500 mg capsule 500 mg PO TID 01/14/25 01/14/25 07:00 History finasteride 5 mg tablet 5 mg PO DAILY 01/14/25 01/13/25 22:00 History phenazopyridine 100 mg tablet 100 mg PO TID 01/14/25 01/14/25 07:00 History tamsulosin 0.4 mg capsule 0.4 mg PO QHS 01/14/25 01/12/25 22:00 History lidocaine 5 % topical ointment 1 applic topical TID PRN skin 01/16/25 Unknown Rx irritation #50 grams Allergy/AdvReac Type Severity Reaction Status Date / Time niacin (From N[place] Allergy Extreme Verified 01/16/25 22:25 Extended-Release) Itching cyclobenzaprine AdvReac Unknown Heart Verified 01/16/25 22:25 feels like wants to stop Family History Father CAD (coronary artery disease) Diabetes Heart disease Myocardial infarction Hypertension Mother Heart disease Diabetes CVA (cerebral vascular accident) Sister Breast cancer Colon cancer Brother Colon cancer Surgical History S/P TURP (transurethral resection of prostate) History of orthopedic surgery History of facial surgery History of shoulder surgery H/O right knee surgery History of left heart catheterization (11/19/21) History of coronary artery stent placement (05/16/10) Social History household members: spouse housing: house current occupational status: retired Smoking Status: Former smoker how long ago did patient quit smokin alcohol intake: former substance use type: does not use what type of physical activity do you participate in: walking and bicycling frequency: daily seatbelt use: always do you feel safe at home: Yes ROS ROS ED Constitutional Constitutional ED: Denies chills or fever(s) ENT ENT ED: Denies sore throat Cardiovascular Cardiovascular: Denies chest pain Respiratory/Chest Respiratory/Chest: Denies cough or dyspnea Gastrointestinal Gastrointestinal: Reports abdominal pain; Denies diarrhea, nausea or vomiting Genitourinary Genitourinary ED: Reports other Details: Positive urinary retention Musculoskeletal Musculoskeletal: Denies back pain Integumentary Denies rash Neurologic Neurologic: Denies headache(s) Hematologic/Lymphatic Hematologic/Lymphatic: Reports easy bleeding and easy bruising EXAM Physical Exam Const Vital Signs: 01/16/25 22:23 01/16/25 23:32 Temperature 98.2 F 98 F Temperature Source Temporal Pulse Rate 77 78 Respiratory Rate 16 16 Blood Pressure 157/91 H 127/74 H Blood Pressure Mean 113 91 Pulse Ox 99 99 Oxygen Delivery Method Room Air Positive well nourished and well developed General Appearance ED: well developed; Negative for pallor HEENT HEENT Narrative: Normocephalic atraumatic Eyes PERRL and EOMs intact bilaterally General Eye ED: Negative for scleral icterus Neck supple Resp normal respiratory effort and clear to auscultation bilaterally Cardio regular rate and regular rhythm GI non-distended GI Narrative: In the suprapubic/lower midline of the abdomen there is organomegaly consistent with a distended bladder. There is pain with palpation at this site. The remainder of the abdomen is soft nontender nondistended with hypoactive bowel sounds Auscultation: hypoactive bowel sounds Palpation: soft Narrative: Circumcised male without blood or discharge from the urethral meatus. No testicular swelling noted. Back/Spine no CVA tenderness Extremity normal to inspection Neuro oriented x3, CN's II-XII intact bilaterally and no sensory deficits noted Sensorium / Orientation: alert Motor Exam: strength 5/5 throughout Psych mental status grossly normal Skin no rashes or lesions noted General Skin Exam: Negative for jaundice or pallor MDM MDM MDM Narrative Medical decision making narrative: Patient arrived to the ER hypertensive but has a past medical history of this. He also has known BPH and underwent prostate surgery recently. He has had difficulty voiding. His history and exam is consistent with acute urinary retention. As he reports its only been a few hours since his last ability to void my concern for acute kidney injury is low and I do not feel the need to repeat a basic metabolic profile. Also have low concern for potential infection and I do not feel the need for a UA. At this time a Lin catheter was placed and there was spontaneous resolution of his symptoms. As the patient now has resolution of his acute retention and I have low concern for KIANA or UTI do not feel there is need for further intervention he is otherwise safe for discharge with outpatient urology follow-up. History & Record Review Discussion w/independent historian: Patient Discharge Plan Triage Chief Complaint: Complaint ED Provider: Keshawn Davidson Dx/Rx/DC Orders Clinical Impression: Acute urinary retention, Essential (primary) hypertension, Hyperlipidemia, BPH (benign prostatic hyperplasia) Instructions: ED Urinary Retention, Male Prescriptions: New lidocaine 5 % ointment 1 applic topical TID PRN (Reason: skin irritation) Qty: 50 0RF No Action omega-3 fatty acids 1,000 mg capsule 500 mg PO DAILY aspirin 81 mg tablet,chewable 81 mg PO DAILY Qty: 90 3RF nitroglycerin [Nitrostat] 0.4 mg tablet, sublingual 0.4 mg sublingual Q5-15M PRN (Reason: chest pain) Qty: 25 3RF Rx Instructions: do not exceed 3 doses per episode magnesium 200 mg tablet 200 mg PO QDAY multivitamin with folic acid 1 TABLET tablet 1 tab PO DAILY Patient Comments: Vitamins coenzyme [id number] 1 EACH capsule 1 ea PO DAILY Patient Comments: Supplement for cholestrol tamsulosin 0.4 mg capsule 0.4 mg PO QHS phenazopyridine 100 mg tablet 100 mg PO TID cephalexin 500 mg capsule 500 mg PO TID finasteride 5 mg tablet 5 mg PO DAILY pregabalin 50 mg capsule 50 mg PO QHS PRN (Reason: neck pain) Qty: 90 0RF lisinopril 10 mg tablet 10 mg PO BID Qty: 180 3RF atorvastatin 80 mg tablet See Rx Instructions .ROUTE .COMPLEX Qty: 90 3RF Dose Instruction: TAKE 1 TABLET BY MOUTH EVERYDAY AT BEDTIME Rx Instructions: TAKE 1 TABLET BY MOUTH EVERYDAY AT BEDTIME metoprolol tartrate 50 mg tablet 50 mg PO BID Qty: 180 3RF clopidogrel 75 mg tablet See Rx Instructions .ROUTE .COMPLEX Qty: 90 3RF Dose Instruction: TAKE 1 TABLET BY MOUTH EVERY DAY Rx Instructions: TAKE 1 TABLET BY MOUTH EVERY DAY amlodipine 2.5 mg tablet 2.5 mg PO DAILY Qty: 90 0RF Primary Care Provider: Azam Haynes Referrals: Azam Haynes DO [Primary Care Provider] - Spenser Winston MD [Med Staff - Active Staff] - Activity Restrictions/Additional Instructions: Please leave your Lin catheter in place to help prevent return of acute urinary retention. Follow-up with your urologist for repeat evaluation and return to the ER should you have any further concerns Print Language: Indian Disposition Disposition: Home, Self Care Discharge Date/Time: 01/16/25 23:33
--- OUTSIDE RECORDS SUMMARY | 2025-01-16 23:09 | XMS RPT_ITS | CCD ---
Author Organization [facility] Care Team Providers Care Joy Operator Helper Name Role Phone Michel Tomas Y Unavailable Unavailable Ericka Santos Shad Unavailable Phillip Mcclure Unavailable Unavailable MD Amara, [...] Dr. Gauri Vila Primary Care Provider [phone] Dr. Gauri Vila Attending Provider Dr. Gauri [...] Provider Dr. Adam Maloney Attending Provider BIB HAQUE Attending Unavailable GAURI VILA Primary Care Unavailable BIB HAQUE Attending Unavailable GAURI VILA Primary Care Unavailable Gauri Vila DO Primary Care Provider ROSARIO DAVIS Primary Care Unavailable Dallas GORMAN, Dr. Gauri Villa Primary Care Provider [phone] Jim GORMAN, Dr. Gonzalez Attending Provider Jim GORMAN, Dr. Gonzalez Emergency Provider Nella BARRETO, Dr. Drake Linares Attending Provider Jim GORMAN, Dr. Gonzalez Referring Provider [phone] Gauri Vila DO Attending Provider [phone] Dr. Gauri Vila DO Referring Provider Carmen Tariq Attending Provider Carmen Tariq Referring Provider Dr. Gauri Vila DO Primary Care Provider Dr. Gauri Vila DO Referring Provider [phone] Dr. Gauri Vila DO Attending Provider [phone] Amara BARRETO, Dr. Medina Attending Provider Edwar Person MD Attending Provider Dr. Gauri Vila DO Primary Care Provider [phone] Dr. Gauri Vila DO Referring Provider Carmen Tariq Attending Provider Carmen Tariq Referring Provider [phone] Dr. Gauri Vila DO Primary Care Provider Dr. Gauri Vila DO Referring Provider Carmen Tariq Attending Provider Carmen Tariq Referring Provider Tish BARRETO, Dr. Spenser Elliott Attending Provider Tish BARRETO, Dr. Spenser Elliott Referring Provider [phone] Lety GORMAN, Dr. Liao Emergency Provider Flavio BARRETO, Dr. Davison Emergency Provider Adam Maloney Attending Unavailable Brown, Gauri R Primary Care Unavailable Edwar Person Attending Unavailable Brown, Gauri R Primary Care Unavailable Brown, Gauri R Referring Unavailable Carmen Tariq Referring Unavail able Brown, Gauri R Primary Care Unavailable Carmen Tariq Attending Unavail able Brown, Gauri R Primary Care Unavailable Brown, Gauri R Referring Unavailable Carmen Tariq Attending Unavail able Brown, Gauri R Primary Care Unavailable Carmen Tariq Referring Unavail able Carmen Tariq Attending Unavail able Brown, Gauri R Primary Care Unavailable Keshawn Davidson Attending Unavailable Tish, Spenser Elliott Attending Unavailable Brown, Gauri R Primary Care Unavailable TishSpenser borrero Admitting Unavailable TishSpenser borrero Attending Unavailable TishSpenser Admitting Unavailable Brown, Gauri R Primary Care Unavailable Brown, Gauri R Primary Care Unavailable TishSpenser borrero Referring Unavailable TishSpenser Attending Unavailable Brown, Gauri R Attending Unavailable [...] Unavailable Brown, Gauri R Primary Care Unavailable TishSpenser borrero Referring Unavailable TishSpenser Attending Unavailable Brown, Gauri R Primary Care Unavailable Carmen Tariq Attending Unavail able Carmen Tariq Referring Unavail able Brown, Gauri R Primary Care Unavailable Carmen [...] R Referring Unavailable Edwar Person Attending Unavailable Gauri Vila Primary Care Unavailable Gauri Vila Referring Unavailable Flavio BARRETO, Dr. Davison Emergency Provider [phone] Spenser Winston MD Admit Provider Allergies Allergy Classification Reported Allergen(s) Allergy Type Date of Onset Reaction(s) Facility Niacin (2 sources) Niacin Drug Allergy 04-15-20 16 Itching [facility] (8 sources) niacin drug allergy 12-23-19 13 itching [facility] Work Phone: (20 sources) niacin; Translations: [NIACIN] Propensity to adverse reactions to drug 04-15-20 16 Itching [facility] Work Phone: (1 source) Niacin Drug Allergy 06-27-19 15 causes extreme itching and flushing [facility] Work Phone: (20 sources) cyclobenzaprine Drug Allergy 08-15-19 22 Heart feels like wants to stop [facility] Comment on above: Generic only, can ta ke Name Brand (1 source) cyclobenzaprine Drug Allergy 01-15-20 25 [facility] Repository (1 source) Niacin Drug Allergy 01-15-20 25 [facility] Repository Medications Current Medications Residual codes; unclassified (20 sources) Family history [...] 05-12-2023 Episodic Suicide and intentional self-inflicted injury (4 sources) Suicidal thoughts; Translations: [Suicidal ideations] 01-14-2025 Episodic Thyroid disorders (17 sources) Non-toxic multinodular goiter; Translations: [Nontoxic multinodular goiter] Onset: 1 04-16-2016 Chronic Unclassified (1 source) Unknown / UNK(Unknown) Onset: 8 Unclassified (3 sources) Long-term drug therapy; Translations: [Other nursing home social worker (current) drug therapy] Onset: 1 12-04-2010 Unclassified (16 sources) Carpal tunnel syndrome of right wrist; Translations: [G56.01 - Carpal tunnel syndrome, right upper limb] Urinary tract infections (1 source) Acute cystitis without hematuria; Translations: [Acute cystitis without hematuria] Onset: 5 Episodic Past or Other Problems Problem Classification [...] 02-04-2024 Episodic Other aftercare (5 sources) Other snf (current) drug therapy; Translations: [Other nursing home social worker (current) drug therapy] Onset: 12-04-2010 12-04-2010 Episodic [...] Range Facility Absolute lymphocyte countOrd ered By: Samanviolette Luthero on 01-14-2025 Lymphocytes Auto (Unsp spec) [#/Vol] 1.14 10*3/uL 0.83-4.51 [facility] Absolute neutrophil countOrd ered By: Samanviolette Luthero on 01-14-2025 Neutrophils (Bld) [#/Vol] 7.8 10*3/uL High 2.0-7.7 [facility] Alcohol, Blood (Medical)-Ser umon 01-14-2025 SERUM ETOH < 10.1 Normal <=10.0 [facility] Comment on above: Result Comment: This test is for medical purposes only. The legal definition of intoxication varies according to local law. Performed By: #### L 505.5000, L500.2500, L501.9100, L100.0100 ####[facility] [address] [place], [place], [id number] Amphetamine detection with 1 000 ng/mL as cutoffOrdered By: Saman Muniz on 01-14-2025 Amphetamines Screen method >1000 ng/mL Ql (U) Negative < 200 ng/mL [facility] Anion gap in Serum or Plasma Ordered By: Samanviolette Muniz on 01-14-2025 Anion gap [Moles/Vol] 15 mmol/L 5-15 [facility] Automated lymphocyte count a s percentage of total leukocytesOrdered By: Samanviolette Muniz on 01-14-2025 Lymphocytes/100 WBC Auto (Unsp spec) 11.4 % Low 19-41 [facility] BUN/creatinine ratioOrdered By: Samanviolette Muniz on 01-14-2025 Urea nitrogen/Creatinine [Mass ratio] 15.2 mg/mg - [facility] Basic Metabolic Profile (BMP )on 01-14-2025 BUN/CRE 15.2 RATIO Normal 02-21 [facility] Comment on above: Performed By: #### L 505.5000, L500.2500, L501.9100, L100.0100 ####[facility] [address], [address] Calcium [Mass/Vol] 9.4 mg/dL Normal 7.6-11.0 [facility] Comment on above: Performed By: #### L 505.5000, L500.2500, L501.9100, L100.0100 ####[facility] [address] [place], [address] Chloride [Moles/Vol] 98 mmol/L Normal 98-108 [facility] Comment on above: Performed By: #### L 505.5000, L500.2500, L501.9100, L100.0100 ####[facility] [address] [place], [address] CO2 [Moles/Vol] 20.0 mmol/L Low 21.0-32.0 [facility] Comment on above: Performed By: #### L 505.5000, L500.2500, L501.9100, L100.0100 ####[facility] [address] [place], [address] Creatinine [Mass/Vol] 0.96 mg/dL Normal 0.70-1.20 [facility] Comment on above: Performed By: #### L 505.5000, L500.2500, L501.9100, L100.0100 ####[facility] [address] [place], [address] GAP 15 Normal 5-15 [facility] Comment on above: Performed By: #### L 505.5000, L500.2500, L501.9100, L100.0100 ####[facility] [address] [place], [address] GFR/1.73 sq M.predicted among non-blacks MDRD (S/P/Bld) [Vol rate/Area] 82 mL/min/{1.73_m2} Normal >60 [facility] Comment on above: Result Comment: mL/m in/1.73m2 CKD-EPI Creatinine Equation (2020) Performed By: #### L 505.5000, L500.2500, L501.9100, L100.0100 ####[facility] [address] [place], [address] Glucose [Mass/Vol] 122 mg/dL High 70-99 [facility] Comment on above: Performed By: #### L 505.5000, L500.2500, L501.9100, L100.0100 ####[facility] [address] [place], [address] Potassium [Moles/Vol] 4.1 mmol/L Normal 3.3-5.1 [facility] Comment on above: Result Comment: Hemo lysis present, Results??could be affected. ?? Performed By: #### L 505.5000, L500.2500, L501.9100, L100.0100 ####[facility] [address] [place], [address] Sodium [Moles/Vol] 133 mmol/L Normal 133-145 [facility] Comment on above: Performed By: #### L 505.5000, L500.2500, L501.9100, L100.0100 ####[facility] [address] [place], [address] Urea nitrogen [Mass/Vol] 15 mg/dL Normal 4-19 [facility] Comment on above: Performed By: #### L 505.5000, L500.2500, L501.9100, L100.0100 ####[facility] [address] [place], [address] Basophil percentageOrdered B y: Saman Muniz on 01-14-2025 Basophils/100 WBC (Bld) 0.4 % 0-1 [facility] Bilirubin Test strip Ql (U)O rdered By: Saman Muniz on 01-14-2025 Bilirubin Ql (U) 3 mg/dL High Negative [facility] Comment on above: COLOR OF URINE MAY A FFECT DIPSTICK RESULTS. CBC W/Diff, Automatedon 01-03 Absolute Lymph 1.14 X10 3/uL Normal 0.83-4.51 [facility] Comment on above: Performed By: #### L 505.5000, L500.2500, L501.9100, L100.0100 #### [facility] [address] [place], [address] Absolute Neut 7.8 X10 3/uL High 2.0-7.7 [facility] Comment on above: Performed By: #### L 505.5000, L500.2500, L501.9100, L100.0100 #### [facility] [address] [place], [address] Basophils/100 WBC (Bld) 0.4 % Normal 0-1 [facility] Comment on above: Performed By: #### L 505.5000, L500.2500, L501.9100, L100.0100 #### [facility] [address] [place], [address] Eosinophils/100 WBC (Bld) 0.4 % Normal 0-5 [facility] Comment on above: Performed By: #### L 505.5000, L500.2500, L501.9100, L100.0100 #### [facility] [address] [place], [address] Erythrocyte distribution width (RBC) [Ratio] 12.6 % Normal 11.6-14.6 [facility] Comment on above: Performed By: #### L 505.5000, L500.2500, L501.9100, L100.0100 #### [facility] [address] [place], [address] Hematocrit (Bld) [Volume fraction] 45.5 % Normal 40-54 [facility] Comment on above: Performed By: #### L 505.5000, L500.2500, L501.9100, L100.0100 #### [facility] [address] [place], [address] Hemoglobin (Bld) [Mass/Vol] 15.5 g/dL Normal 13.0-16.5 [facility] Comment on above: Performed By: #### L 505.5000, L500.2500, L501.9100, L100.0100 #### [facility] [address] [place], [address] IG% 0.600 Normal 0.0-0.9 [facility] Comment on above: Result Comment: IG% - Immature Granulocytes (promyelocytes, myelocytes and metamyelocytes) > 1% indicates that a LEFT SHIFT is Present. Performed By: #### L 505.5000, L500.2500, L501.9100, L100.0100 #### [facility] [address], [address] Lymphocytes/100 WBC (Bld) 11.4 % Low 19-41 [facility] Comment on above: Performed By: #### L 505.5000, L500.2500, L501.9100, L100.0100 #### [facility] [address], [address] MCH (RBC) [Entitic mass] 30.3 pg Normal 27.0-32.0 [facility] Comment on above: Performed By: #### L 505.5000, L500.2500, L501.9100, L100.0100 #### [facility] [address] [place], [address] MCHC (RBC) [Mass/Vol] 34.1 g/dL Normal 32-36 [facility] Comment on above: Performed By: #### L 505.5000, L500.2500, L501.9100, L100.0100 #### [facility] [address] [place], [address] MCV (RBC) [Entitic vol] 89.0 fL Normal 80-94 [facility] Comment on above: Performed By: #### L 505.5000, L500.2500, L501.9100, L100.0100 #### [facility] [address] [place], [address] Monocytes/100 WBC (Bld) 8.8 % Normal 0-10 [facility] Comment on above: Performed By: #### L 505.5000, L500.2500, L501.9100, L100.0100 #### [facility] [address] [place], [address] Neutrophils/100 WBC (Bld) 78.4 % High 47-70 [facility] Comment on above: Performed By: #### L 505.5000, L500.2500, L501.9100, L100.0100 #### [facility] [address] [place], [address] Nucleated RBC (Bld) [#/Vol] 0 10*3/uL Normal 0-5 [facility] Comment on above: Performed By: #### L 505.5000, L500.2500, L501.9100, L100.0100 #### [facility] [address] [place], [address] Platelet mean volume (Bld) [Entitic vol] 9.9 fL Normal 6.2-12.0 [facility] Comment on above: Performed By: #### L 505.5000, L500.2500, L501.9100, L100.0100 #### [facility] [address] [place], [address] Platelets (Bld) [#/Vol] 262 10*3/uL Normal 150-450 [facility] Comment on above: Performed By: #### L 505.5000, L500.2500, L501.9100, L100.0100 #### [facility] [address] [place], [address] RBC (Bld) [#/Vol] 5.11 10*6/uL Normal 4.6-6.2 [facility] Comment on above: Performed By: #### L 505.5000, L500.2500, L501.9100, L100.0100 #### [facility] [address], [address] RDW SD 41.6 fl Normal 35.1-43.9 [facility] Comment on above: Performed By: #### L 505.5000, L500.2500, L501.9100, L100.0100 #### [facility] [address] [place], [address] WBC (Bld) [#/Vol] 10.0 10*3/uL Normal 4.4-11.0 [facility] Comment on above: Performed By: #### L 505.5000, L500.2500, L501.9100, L100.0100 #### [facility] [address], [address] Carbon dioxide, total [Moles /volume] in Central venous bloodOrdered By: Saman Muniz on 01-14-2025 CO2 [Moles/Vol] 20.0 mmol/L Low 21.0-32.0 [facility] Chloride assayOrdered By: Ke Muniz on 01-14-2025 Chloride [Moles/Vol] 98 mmol/L 98-108 [facility] Emergency Department Summary on 01-14-2025 Emergency Department Summary [facility] Medical Records Department [address] [place] [address] Emergency Department Summary 01/14/25 MR#: [id number] Acct: [id number] Name: ARTURO CORONADO Rep #: [id number] : 1945 79 From: Saman Muniz MD PCP: Dr. Gauri Vila, DO Status:REG ER Location: ED HPI History of Present [...] abdominal symptoms. Prior similar symptoms: Yes Recent Illness/Hospitalization : [facility] Medical History Osteoarthritis of left knee Right shoulder strain Scabies Thyroid goiter Back pain due to injury Family history of colon cancer Seborrheic keratoses Cervical disc disease Cervical cord compression with myelopathy Painful neck Swallowing problem Chronic back pain Nonrheumatic mitral (valve) prolapse Essential (primary) hypertension Back pain Obstructive sleep apnea GERD (gastroesophageal reflux disease) Atherosclerosis of coronary artery of [place] heart without angina pectoris Hyperlipidemia Home Medications ???Medication ???Instructions ???Recorded ???Last Taken ???Type coenzyme [id number] 100 mg-20 1 ea PO DAILY 03/25/13 07/03/20 History mg capsule multivitamin with folic acid 400 1 tab PO DAILY 03/25/13 07/03/20 H istory mcg tablet omega-3 fatty acids 1,000 mg 1,000 mg PO DAILY 08/20/18 1 History capsule aspirin 81 mg chewable tablet 81 mg PO DAILY #90 tabs 08/15/20 0 11/19/21 Rx nitroglycerin 0.4 mg sublingual 0.4 mg sublingual Q5-15M PRN chest 07/04/23 Unknown Rx tablet (Nitrostat) pain #25 tabs magnesium 200 mg tablet 200 mg PO QDAY 01/13/24 Unknown Hi story pregabalin 50 mg capsule 50 mg PO QHS PRN neck pain #90 cap s 02/05/24 Unknown Rx lisinopril 10 mg tablet 10 mg PO BID #180 tabs 06/02/24 Un known Rx atorvastatin 80 mg tablet See Rx Instructions .Route 5 Unknown Rx .COMPLEX #90 tabs metoprolol tartrate 50 mg tablet 50 mg PO BID #180 tabs 07/26/24 Un known Rx clopidogrel 75 mg tablet See Rx Instructions .Route 5 Unknown Rx .COMPLEX #90 tabs amlodipine 2.5 mg tablet 2.5 mg PO DAILY #90 tabs 10/18/24 Unknown Rx Allergy/AdvReac Type Severity Reaction Status [...] safe at home: Yes ROS ROS ED Constitutional Constitutional ED: Denies chills, fever(s), subjective or sweats Eyes Eyes: Denies blurry vision or change in vision Cardiovascular Cardiovascular: Denies chest pain or palpitations Respir (more content not included)... Normal [facility] Eosinophil percentageOrdered By: Saman Muniz on 01-14-2025 Eosinophils/100 WBC (Bld) 0.4 % 0-5 [facility] Erythrocyte distribution wid th ratioOrdered By: Saman Muniz on 01-14-2025 Erythrocyte distribution width (RBC) [Ratio] 12.6 % 11.6-14.6 [facility] Erythrocyte distribution wid th standard deviationOrdered By: Samanviolette Muniz on 01-14-2025 Erythrocyte distribution width (RBC) [Ratio] 41.6 fl 35.1-43.9 [facility] Glomerular filtration rate ( GFR) estimation/1.73 sq m using serum, plasma, or whole bOrdered By: Saman Muniz on 01-14-2025 GFR/1.73 sq M.predicted among non-blacks MDRD (S/P/Bld) [Vol rate/Area] 82 mL/min/{1.73_m2} >60 [facility] Comment on above: mL/min/1.73m2 CKD-EP I Creatinine Equation (2020) Hematocrit Auto (Bld) [Volum e fraction]Ordered By: Saman Muniz on 01-14-2025 Hematocrit (Bld) [Volume fraction] 45.5 % 40-54 [facility] Hemoglobin measurementOrdere d By: Saman Muniz on 01-14-2025 Hemoglobin (Bld) [Mass/Vol] 15.5 g/dL 13.0-16.5 [facility] Immature granulocytes/100 WB C Auto (Bld)Ordered By: Saman Muniz on 01-14-2025 Immature granulocytes/100 WBC (Bld) 0.600 % 0.0-0.9 [facility] Comment on above: IG% - Immature Granu locytes (promyelocytes, myelocytes and metamyelocytes) > 1% indicates that a LEFT SHIFT is Present. Ketones Test strip Ql (U)Ord ered By: Saman Muniz on 01-14-2025 Ketones Ql (U) 50 mg/dl High Negative [facility] MCV (mean corpuscular volume ) determinationOrdered By: Saman Muniz on 01-14-2025 MCV (RBC) [Entitic vol] 89.0 fL 80-94 [facility] MR/POSTOP.ANEon 01-14-2025 MR/POSTOP.ANE [facility] Medical Records Department [address] [place] [address] Anesthesia Postop Eval I 01/14/251811 MR#: [id number] Acct: [id number] Name: ARTURO CORONADO P Rep #: [id number] : 1945 79 From: Andria Echeverria BRICKLAYER PCP: Dr. Gauri Vila, DO Status:ADM PATRICE Y Race: C Location: [place] [address] Anesthesia: Postop Eval I Current Vital Signs Temperature: 97.1 F Pulse Rate: 86 Blood Pressure: 148/80 Respiratory Rate: 16 Pulse Ox: 94 Assessment Airway patent: Yes Spontaneous unlabored respirations: Yes nausea: No Vomiting: No Anesthesia Complication: No Fluid Hydration Crystalloid volume administer (ml): 1,000 Total IV fluid infused: 1,000 Progress Note Anesthesia document: Postop Eval 1 completed: Yes 01/14/251813 Date Andria Echeverria BRICKLAYER Cosigner Signature: Date CC: Signed Normal [facility] [id number] 01-14-2025 [facility] Medical Records Department [address] [place] [address] Anesthesia Postop Eval II 01/14/251813 MR#: [id number] Acct: [id number] Name: ARTURO CORONADO P Rep #: [id number] : 1945 79 From: Andria Echeverria BRICKLAYER PCP: Dr. Gauri Vila, DO Status:ADM PATRICE Y Race: C Location: [place] [address]1 Anesthesia Postop Eval I Sum Postop Eval Completion status Anesthesia document: Postop Eval 1 completed: Yes Anesthesia Postop Eval I Summary Anesthesia Postop Eval I Summary: Anesthesia Postop Eval I: Assessment Summary Airway patent Yes 01/14/25 18:12 [email or web address] Spontaneous unlabored Yes 01/14/25 18:12 [email or web address].CSIR respirations Mental status nausea No 01/14/25 18:12 [email or web address].CSIR Vomiting No 01/14/25 18:12 [email or web address] Anesthesia Postop Eval I: Fluid Summary Crystalloid volume administer 1,000 01/14/25 18:12 [email or web address] (ml) Colloids volume administered ( ml) Blood Product volume administered (ml) Total IV fluid infused 1,000 01/14/25 18:12 [email or web address] Anesthesia Postop Eval I: Summary Notes Anesthesia Complication No 01/14/25 18:12 [email or web address].CSIR Anesthesia Complication Comment: Post-operative progress note Anesthesia: Postop Eval II Evaluation Mental status: Awake Pain Level: 0 nausea: No Vomiting: No 01/14/254 Date Andria Echeverria BRICKLAYER Cosigner Signature: Date CC: Signed Normal [facility] Mean corpuscular hemoglobin (MCH) determinationOrdered By: Saman Muniz on 01-14-2025 MCH (RBC) [Entitic mass] 30.3 pg 27.0-32.0 [facility] Mean corpuscular hemoglobin concentration (MCHC) determinationOrdered By: Saman Muniz on 01-14-2025 MCHC (RBC) [Mass/Vol] 34.1 g/dL 32-36 [facility] Mean platelet volume determi nationOrdered By: Saman Muniz on 01-14-2025 Platelet mean volume (Bld) [Entitic vol] 9.9 fL 6.2-12.0 [facility] Microscopic analysis of urin e for red blood cells (RBC)Ordered By: Saman Muniz on 01-14-2025 Microscopic analysis of urine for red blood cells (RBC) 0-5 SEEN /hpf 0-5 [facility] Monocyte percentageOrdered B y: Saman Muniz on 01-14-2025 Monocytes/100 WBC (Bld) 8.8 % 0-10 [facility] Mucus LM Ql (Urine sed)Order ed By: Saman Muniz on 01-14-2025 Mucus Ql (Urine sed) 0 SEEN /hpf [facility] Neutrophil percentageOrdered By: Samanviolette Muniz on 01-14-2025 Neutrophils/100 WBC (Bld) 78.4 % High 47-70 [facility] Nitrite Test strip Ql (U)Ord ered By: Saman Muniz on 01-14-2025 Nitrite Ql (U) Positive High Negative [facility] No Panel InformationOrdered By: Saman Muniz on 01-14-2025 Urine Buprenorphine Qualitative Negative < 200 ng/mL [facility] Urine Oxycodone Screen Negative < 100 ng/mL [facility] Nucleated red blood cell per centageOrdered By: Samanviolette Muniz on 01-14-2025 Nucleated RBC/100 WBC (Bld) [Ratio] 0 % 0-5 [facility] Operative Reporton Operative Report [facility] Medical Records Department [address] [place] [address] Operative Report 01/14/25 1803 MR#: [id number] Acct: [id number] Name: ARTURO CORONADO René Rep #: [id number] : 1945 79 From: Spenser Winston MD PCP: Dr. 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 Post-Operative Diagnosis: The same Surgery/Procedure Performed: Transurethral section of prostate manufacturing maintenance manager: No Type of Anesthesia: General RN Documented Start/Stop Times: Operation Date: 01/14/25 17:10 Case Time Into Pre-Op 01/14/25 16:45 Out of Pre-Op 01/14/25 16:51 Anesthesia Start 01/14/25 16:53 Into Room 01/14/25 16:53 Procedure Start 01/14/25 17:06 Procedure End 01/14/25 18:01 Anesthesia End 01/14/25 18:03 Out of Room 01/14/25 18:03 Procedure Start Time: 17:06 Procedure Stop Time: 18:04 Select all DRAINS/GRAFTS/IMPLANTS that apply: Drains Drain details: 22 Spanish three-way Lin Estimated Blood Loss: Minimal Specimen collected: No Description of surgery: In the preoperative setting I discussed with the patient how the surgery would be done with expect afterwards. We discussed how a prostate resection is done and we discussed the risk of the surgery including, bleeding, infection, retrograde ejaculation, changes with ejaculation or intercourse,. We discussed the possibility that the resection of the prostate may not alleviate his urinary symptoms. We discussed the small risk of developing scar tissue along the urethral channel and strictures. We also discussed the chance of the prostate could grow back and he may need further surgery or treatment in the future for prostate problems. Patient was taken back to the operating room, timeout procedure was performed, he was identified and marked and placed on the operating room table. He underwent general anesthesia. He was placed in dorsolithotomy position. Penis and testicles were prepped and draped in usual sterile fashion. Went into the bladder using the visual obturator with a resectoscope. Once inside the bladder identified the right and left ureteral orifice. I then identified the prostate and the anatomy of the prostate. I marked out the area of the sphincter and the verumontanum was identified. I then proceeded with the prostate resection first resected the median lobe. And then resected the right lobe of the prostate. Then to resect the left lobe of the prostate. I then resected the apical tissue of the prostate. This was a complete resection of all obstructive tissue to improve voiding and relieve obstruction. I then made sure that there was no injury to the sphincter or the verumontanum was still intact. At the end of the resection all the chips were Ellik out of the bladder. I then identified the left and right ureteral orifice and these were confirmed to be in good position and effluxing and not injured. The resectoscope was removed, a 22 Spanish catheter was placed into the bladder on continuous irrigation. And the urine was fairly light pink color and draining normally. He was taken back to the PACU in good condition. CPT 71277 Surgical Findings: Obstructive prostate resected Complications Complications: No Admit VTE Documentation VTE Present on Admission: No VTE Mechan Device Prophylaxis: SCD's VTE Pharm Prophylaxis ordered?: No 01/14/25 9555 Cosigner Signature (if applicable): CC: Dr. Gauri Vila, DO; Dr. Spenser Winston MD Signed Normal [facility] Platelet countOrdered By: Ke Luthero on 01-14-2025 Platelets (Bld) [#/Vol] 262 10*3/uL 150-450 [facility] Potassium measurement (mass/ volume)Ordered By: Saman Flavio on 01-14-2025 Potassium (Unsp spec) [Mass/Vol] 4.1 mmol/L 3.3-5.1 [facility] Comment on above: Hemolysis present, R esults could be affected. Protein Test strip Ql (U)Ord ered By: Saman Muniz on 01-14-2025 Protein Ql (U) 30 mg/dl High Negative [facility] Quantitative urine opiates m easurementOrdered By: Saman Muniz on 01-14-2025 Opiates Ql (U) Negative < 300 ng/mL [facility] RBC Auto (Bld) [#/Vol]Ordere d By: Saman Muniz on 01-14-2025 RBC (Bld) [#/Vol] 5.11 10*6/uL 4.6-6.2 [facility] Screening urine fentanyl elizabeth surementOrdered By: Saman Muniz on 01-14-2025 fentaNYL Screen Ql (U) Negative <5 ng/mL [facility] Comment on above: CONFIRMATORY TESTING FOR ALL POSITIVE URINE DRUG SCREENRESULTS WILL ONLY BE SENT OUT UPON PHYSICIAN ORDER. [facility] Pro Urine Drug Screen methods provide only preliminaryanalytical test results. A more specific alternate chemicalmethod must be used in order to obtain a confirmedanalytical result. Gas chromatography/mass spectrometery(GC/MS) is the preferred confirmatory method. Clinicalconsideration and professional judgement should be appliedto any drug of abuse test result, particularly whenpreliminary positive results are used. Urine TCA testing must be ordered separately. Use test mnemonic: UTCA Serum creatinine measurement (mass/volume)Ordered By: Saman Muniz on 01-14-2025 Creatinine [Mass/Vol] 0.96 mg/dL 0.70-1.20 [facility] Serum glucose measurement (m ass/volume)Ordered By: Saman Muniz on 01-14-2025 Glucose [Mass/Vol] 122 mg/dL High 70-99 [facility] Serum or plasma calcium phillip urement (mass/volume)Ordered By: Saman Muniz on 01-14-2025 Calcium [Mass/Vol] 9.4 mg/dL 7.6-11.0 [facility] Serum or plasma ethanol phillip urement (mass/volume)Ordered By: Saman Muniz on 01-14-2025 Ethanol [Mass/Vol] mg/dL <10.1 [facility] Comment on above: This test is for med ical purposes only. The legal definition of intoxication varies according to local law. Serum or plasma urea nitroge n measurement (mass/volume)Ordered By: Samanviolette Muniz on 01-14-2025 Urea nitrogen [Mass/Vol] 15 mg/dL 4-19 [facility] Sodium levelOrdered By: Samanviolette Muniz on 01-14-2025 Sodium [Moles/Vol] 133 mmol/L 133-145 [facility] Squamous epithelial cells de tection in urine sediment by light microscopyOrdered By: Saman Muniz on 01-14-2025 Epithelial cells.squamous LM Ql (Urine sed) 0-5 SEEN /hpf 0-5 [facility] Urinalysis, Completeon 01-14 EPI,SQUAMOUS 0-5 SEEN Normal 0-5 [facility] Comment on above: Order Comment: CLEAN CATCH Performed By: #### L 400.0001 #### [facility] [address] [place], [address] RBC 0-5 SEEN Normal 0-5 [facility] Comment on above: Order Comment: CLEAN CATCH Performed By: #### L 400.0001 #### [facility] [address] [facility] [address] BACTERIA 2+ /hpf Normal None Seen [facility] Comment on above: Order Comment: CLEAN CATCH Performed By: #### L 400.0001 #### [facility] [address] [place], [address] WBC 0-5 SEEN Normal 0-5 [facility] Comment on above: Order Comment: CLEAN CATCH Performed By: #### L 400.0001 #### [facility] [address] [place], [address] Mucus Ql (Urine sed) 0 SEEN Normal [facility] Comment on above: Order Comment: CLEAN CATCH Performed By: #### L 400.0001 #### [facility] [address] [place], [address] Urine Drug Screen (VISTA)on 01-14-2025 AMPHETAMINES Negative Normal <1000 ng/mL [facility] Comment on above: Performed By: #### L 505.5000, L500.2500, L501.9100, L100.0100 ####[facility] [address] [place], [address] BARBITIURATES Negative Normal < 200 ng/mL [facility] Comment on above: Performed By: #### L 505.5000, L500.2500, L501.9100, L100.0100 ####[facility] [address] [place], [address] BENZODIAZIPINE Negative Normal < 200 ng/mL [facility] Comment on above: Performed By: #### L 505.5000, L500.2500, L501.9100, L100.0100 ####[facility] [address] [place], [address] BUP Ur Drug Scr Negative Normal < 200 ng/mL [facility] Comment on above: Performed By: #### L 505.5000, L500.2500, L501.9100, L100.0100 ####[facility] [address] [place], [address] COCAINE Negative Normal < 300 ng/mL [facility] Comment on above: Performed By: #### L 505.5000, L500.2500, L501.9100, L100.0100 ####[facility] [address] [place], [address] Fentanyl Negative Normal <5 ng/mL [facility] Comment on above: Result Comment: CONF IRMATORY TESTING FOR ALL POSITIVE URINE DRUG SCREEN RESULTS WILL ONLY BE SENT OUT UPON PHYSICIAN ORDER. [facility] Pro Urine Drug Screen methods provide only preliminary analytical test results. A more specific alternate chemical method must be used in order to obtain a confirmed analytical result. Gas chromatography/mass spectrometery (GC/MS) is the preferred confirmatory method. Clinical consideration and professional judgement should be applied to any drug of abuse test result, particularly when preliminary positive results are used. Urine TCA testing must be ordered separately. Use test mnemonic: UTCA Performed By: #### L 505.5000, L500.2500, L501.9100, L100.0100 ####[facility] [address] [facility] [address] METHADONE Negative Normal < 300 ng/mL [facility] Comment on above: Performed By: #### L 505.5000, L500.2500, L501.9100, L100.0100 ####[facility] [address] [place] [address] OPIATES Negative Normal < 300 ng/mL [facility] Comment on above: Performed By: #### L 505.5000, L500.2500, L501.9100, L100.0100 ####[facility] [address] [place] [address] OXYCODONE Negative Normal < 100 ng/mL [facility] Comment on above: Performed By: #### L 505.5000, L500.2500, L501.9100, L100.0100 ####[facility] [address] [facility] [address] PCP Negative Normal < 25 ng/mL [facility] Comment on above: Performed By: #### L 505.5000, L500.2500, L501.9100, L100.0100 ####[facility] [address] [place] [address] THC Negative Normal < 50 ng/mL [facility] Comment on above: Performed By: #### L 505.5000, L500.2500, L501.9100, L100.0100 ####[facility] [address] [place], [address] Urine benzodiazepine levelOr dered By: Saman Muniz on 01-14-2025 Benzodiazepines Ql (U) Negative < 200 ng/mL [facility] Urine clarityOrdered By: Saman Muniz on 01-14-2025 Clarity (U) Sl. Cloudy Clear [facility] Urine cocaine levelOrdered B y: Saman Muniz on 01-14-2025 Cocaine Ql (U) Negative < 300 ng/mL [facility] Urine color determinationOrd ered By: Saman Muniz on 01-14-2025 Color (U) Yellow Yellow [facility] Urine wnngj-9-gglpoofpwtmyrj abinol (THC) measurementOrdered By: Saman Muniz on 01-14-2025 Cannabinoids Screen Ql (U) Negative < 50 ng/mL [facility] Urine glucose detectionOrder ed By: Saman Muniz on 01-14-2025 Glucose Ql (U) Normal mg/dl Normal [facility] Urine leukocyte esterase det ection by dipstickOrdered By: Saman Muniz on 01-14-2025 Leukocyte esterase Test strip Ql (U) 100 /ul High Negative [facility] Urine pHOrdered By: Saman oakes on 01-14-2025 pH (U) 6.5 [pH] 5.0 - 8.0 [facility] Urine phencyclidine (PCP) de tectionOrdered By: Saman Muniz on 01-14-2025 Phencyclidine Ql (U) Negative < 25 ng/mL [facility] Urine sediment bacteria coun t by microscopy (number/high power field)Ordered By: Saman Muniz on 01-14-2025 Bacteria LM.HPF (Urine sed) [#/Area] 2 /[HPF] None Seen [facility] Urine specific gravity measu rementOrdered By: Saman Muniz on 01-14-2025 Specific gravity (U) [Rel density] 1.015 1.002-1.030 [facility] Urine urobilinogen measureme ntOrdered By: Saman Muniz on 01-14-2025 Urobilinogen Ql (U) 4 mg/dl High Normal [facility] White blood cell (WBC) count Ordered By: Saman Muniz on 01-14-2025 WBC (Bld) [#/Vol] 10.0 10*3/uL 4.4-11.0 [facility] White blood cell countOrdere d By: Saman Muniz on 01-14-2025 White blood cell count 0-5 SEEN /hpf 0-5 [facility] Urine Cultureon 01-13-2025 URC Below infection leve l. GNR lactose sports activities foul judge [place] Count 1000-10,000 Normal [facility] Comment on above: Performed By: #### M 100.2200 ####[facility] [address] [facility] [place], [address] Emergency Department Summary on 01-12-2025 Emergency Department Summary [facility] Medical Records Department [address] [place] [address] Emergency Department Summary 01/12/25 MR#: [id number] Acct: [id number] Name: ARTURO CORONADO Rep #: [id number] : 1945 79 From: Keshawn Davidson DO PCP: Dr. Gauri Vila, DO Status:DEP ER Location: ED HPI History of Present Illness Chief Complaint: Complaint Informant: patient and spouse/S.O. Narrative Narrative: Patient is a 79-year-old male with past medical history of hypertension hyperlipidemia. He states that he was recently seen by urology and had a camera in his bladder. He states he was placed on 2 medications for his prostate and recently antibiotics as well. He states that today around 6 PM he had sensation that he had to urinate but has not been able to do so. He states the pain has been increasing since that time and despite trying to urinate he has not been able to relieve himself. Secondary to the inability to urinate and pain he presents for evaluation [facility] Medical History Osteoarthritis of left knee Right shoulder strain Scabies Thyroid goiter Back pain due to injury Family history of colon cancer Seborrheic keratoses Cervical disc disease Cervical cord compression with myelopathy Painful neck Swallowing problem Chronic back pain Nonrheumatic mitral (valve) prolapse Essential (primary) hypertension Back pain Obstructive sleep apnea GERD (gastroesophageal reflux disease) Atherosclerosis of coronary artery of [place] heart without angina pectoris Hyperlipidemia Home Medications ???Medication ???Instructions ???Recorded ???Last Taken ???Type coenzyme A83-P-kebigrqam 100 mg-20 1 ea PO DAILY 03/25/13 07/03/20 History mg capsule multivitamin with folic acid 400 1 tab PO DAILY 03/25/13 07/03/20 H istory mcg tablet omega-3 fatty acids 1,000 mg 1,000 mg PO DAILY 08/20/18 1 History capsule aspirin 81 mg chewable tablet 81 mg PO DAILY #90 tabs 08/15/20 0 11/19/21 Rx nitroglycerin 0.4 mg sublingual 0.4 mg sublingual Q5-15M PRN chest 07/04/23 Unknown Rx tablet (Nitrostat) pain #25 tabs magnesium 200 mg tablet 200 mg PO QDAY 01/13/24 Unknown Hi story pregabalin 50 mg capsule 50 mg PO QHS PRN neck pain #90 cap s 02/05/24 Unknown Rx lisinopril 10 mg tablet 10 mg PO BID #180 tabs 06/02/24 Un known Rx atorvastatin 80 mg tablet See Rx Instructions .Route 5 Unknown Rx .COMPLEX #90 tabs metoprolol tartrate 50 mg tablet 50 mg PO BID #180 tabs 07/26/24 Un known Rx clopidogrel 75 mg tablet See Rx Instructions .Route 5 Unknown Rx .COMPLEX #90 tabs amlodipine 2.5 mg tablet 2.5 mg PO DAILY #90 tabs 10/18/24 Unknown Rx Allergy/AdvReac Type Severity Reaction Status Date / Time niacin (From Niaspan Allergy Extreme Verified 01/12/25 21:06 Extended-Release) Itching cyclobenzaprine AdvReac Unknown Heart Verified 01/12/25 21:06 feels like wants to stop Family History [...] safe at home: Yes ROS ROS ED Constitutional Constitutional ED: Denies chills or fever(s) ENT ENT ED: Denies sore throat Cardiovascular Cardiovascular: Denies chest pain Respiratory/Chest Respiratory/Chest: Denies cough or dyspnea Gastrointestinal Gastrointestinal: Reports abdominal pain; Denies diarrhea, nausea or vomiting Genitourinary Genitourinary ED: Reports other Details: Positive anuria Musculoskeletal Musculoskeletal: Denies myalgias Integumentary Denies rash Neurologic Neurologic: Denies headache(s) Hematologic/Lymphatic Hematologic/Lymphatic: Denies easy bleeding or easy bruising EXAM Physical Exam Const Vital Signs: 01/12/25 21:06 01/13/25 00:00 01/13/25 00:12 Temperature 97.7 F L 98.6 F Temperature Source Oral Pulse Rate 76 (more content not included)... Normal [facility] Urine cultureOrdered By: Jhon Winston on 01-11-2025 Bacteria identified Cx Nom (U) GNR lactose sports activities foul judge Abnormal [facility] PSA,Total- Diagnosticon 12-04 PSA, DIAGNOSTIC 3.10 ng/mL Normal 0.00-4.00 [facility] Comment on above: Result Comment: This [...] values. Performed By: #### L 501.9940 #### [facility] [address] [place], [address] Cardiology Visit Reporton Cardiology Visit Report [facility] [address] [place] [address] OFFICE VISIT Date of Service: 11/10/24 MR#: [id number] Acct: [id number] Name: ARTURO CORONADO Rep #: [id number] : 1945 Provider: SEGUN Burton Age/Sex: 79/M [...] Monitor Intake Visit Reasons: 4 M FU School Lunch Monitor Required: No Accompanied by: Self Is patient in pain?: No Allergies niacin (From Niaspan Extended-Release) Allergy (Verified 11/10/24 14:59) Extreme Itching cyclobenzaprine Adverse Reaction (Unknown, Verified 11/10/24 14:59) Heart feels like wants to stop Medications ???Medication ???Instructions ???Recorded ???Confirmed ???Type coenzyme I63-N-dthxwjngi 100 mg-20 1 ea PO DAILY 03/25/13 [...] (slipped on ice in driveway) [facility] Medical History Osteoarthritis of left knee Right shoulder strain Scabies Thyroid goiter Back pain due to injury Family history of colon cancer Seborrheic keratoses Cervical disc disease Cervical cord compression with myelopathy Painful neck Swallowing problem Chronic back pain Nonrheumatic mitral (valve) prolapse Essential (primary) hypertension Back pain Obstructive sleep apnea GERD (gastroesophageal reflux disease) Atherosclerosis of coronary artery of [place] heart without angina pectoris Hyperlipidemia Surgical History [...] Eyes Eyes: (more content not included)... Normal [facility] Orthopedic Visit Reporton Orthopedic Visit Report [facility] [address] [place] [address] OFFICE VISIT Date of Service: 11/08/24 MR#: [id number] Acct: [id number] Name: ARTURO CORONADO René Rep #: [id number] : 1945 Provider: Dr. Edwar rojas MD Age/Sex: 79/M Location: [facility] Status: Signed Intake Vital Signs 10/12/24 14:20 [...] Medications ???Medication ???Instructions ???Recorded ???Confirmed ???Type coenzyme T56-W-gkhykxwde 100 mg-20 1 ea PO DAILY 03/25/13 [...] in the past year?: Yes [facility] Medical History Osteoarthritis of left knee Right shoulder strain Scabies Thyroid goiter Back pain due to injury Family history of colon cancer Seborrheic keratoses Cervical disc disease Cervical cord compression with myelopathy Painful neck Swallowing problem Chronic back pain Nonrheumatic mitral (valve) prolapse Essential (primary) hypertension Back pain Obstructive sleep apnea GERD (gastroesophageal reflux disease) Atherosclerosis of coronary artery of [place] heart without angina pectoris Hyperlipidemia Surgical History [...] by me, Dr. Edwar Person MD 11/08/24 4697. Part of today???s visit was documented by [...] Performing Provider: Edwar Person MD Performing Location: [facility] Administered by: Edwar Person MD on 11/08/24 13:41 Dose Route Admin Location Dispensed Lot Number Expiration Date [facility] Man ufacturer 10 mg intra-articular left knee 2 mL [id number] 03/08/25 [address]-6 [employer] Coding Level of Care Code Attention General Helper Diagnoses Osteoarthritis of left knee M17.12 (more content not included)... Normal [facility] Bilirubin directOrdered By: Carmen Garcia on 11-06-2024 Bilirubin.direct [Mass/Vol] 0.35 mg/dL High 0.00-0.30 [facility] Bilirubin, totalOrdered By: Carmen Garcia on 11-06-2024 Bilirubin [Mass/Vol] 0.94 mg/dL 0.00-1.30 [facility] Calculated very low density lipoprotein (VLDL) cholesterol measurementOrdered By: Carmen Garcia on 11-06-2024 Calculated very low density lipoprotein (VLDL) cholesterol measurement 14 mg/dL 5-40 [facility] LDL calc ser/plasOrdered By: Carmen Garcia on 11-06-2024 Cholesterol in LDL [Mass/Vol] 74 mg/dL [facility] Comment on above: Zsmzqgeten=879-241 m g/dL & Higher Yion=403 mg/dL or greater Laboratory - Chemistry and C hemistry - challengeOrdered By: Carmen Garcia on 11-06-2024 AST [Catalytic activity/Vol] 41 U/L High <38 [facility] Lipid Profileon 11-06-2024 CHOL:HDL 3.14 Normal [facility] Comment on above: Performed By: #### L 500.3400, L500.4100 #### [facility] [address] [place], [place], [id number] Cholesterol [Mass/Vol] 130 mg/dL Normal <=200 [facility] Comment on above: Result Comment: Chol esterol level, Desirable <200 mg/dL Borderline high cholesterol 200-239 mg/dL High cholesterol >=240 mg/dL Recommendations of the NCEP Adult Treatment Panel for the following risk-cutoff thresholds for the [place] population. Performed By: #### L 500.3400, L500.4100 #### [facility] [address] [place], [place], [address] Cholesterol in HDL [Mass/Vol] 41 mg/dL Normal [facility] Comment on above: Result Comment: Alejandra onal Cholesterol Education Program (NCEP) guidelines: <40 mg/dL: Low HDL-cholesterol (major risk factor for CHD) >= 60 mg/dL: High HDL-cholesterol (negative risk factor for CHD) HDL-cholesterol is affected by a number of factors, e.g. smoking, exercise, hormones, sex and age. Performed By: #### L 500.3400, L500.4100 #### [facility] [address] [place], [place], [id number] (103) Cholesterol in LDL [Mass/Vol] 74 mg/dL Normal [facility] Comment on above: Result Comment: Bord randjk=254-256 mg/dL Higher Jqkf=603 mg/dL or greater Performed By: #### L 500.3400, L500.4100 #### [facility] [address] [place], [address] Cholesterol in VLDL [Mass/Vol] 14 mg/dL Normal 5-40 [facility] Comment on above: Performed By: #### L 500.3400, L500.4100 #### [facility] [address] [place], [address] Triglyceride [Mass/Vol] 72 mg/dL Normal [facility] Comment on above: Result Comment: The drugs N-Acetylcysteine and Metamizole may falsely depress this assay. Normal range: <150 mg/dL Borderline High: 150-199 mg/dL High: 200-499 mg/dL Very High: >500 mg/dL Performed By: #### L 500.3400, L500.4100 #### [facility] [address] [place], [address] Liver Profileon 11-06-2024 Albumin [Mass/Vol] 4.3 g/dL Normal 3.4-4.8 [facility] Comment on above: Performed By: #### L 500.3400, L500.4100 #### [facility] [address] [place], [address] ALK PHOS 89 U/L Normal 40-129 [facility] Comment on above: Performed By: #### L 500.3400, L500.4100 #### [facility] [address] [place], [address] ALT [Catalytic activity/Vol] 45 U/L Normal <=46 [facility] Comment on above: Performed By: #### L 500.3400, L500.4100 #### [facility] [address] [place], [address] AST [Catalytic activity/Vol] 41 U/L High <=37 [facility] Comment on above: Performed By: #### L 500.3400, L500.4100 #### [facility] [address] [place], [address] Bilirubin [Mass/Vol] 0.94 mg/dL Normal 0.00-1.30 [facility] Comment on above: Performed By: #### L 500.3400, L500.4100 #### [facility] [address] [place], [address] Bilirubin.direct [Mass/Vol] 0.35 mg/dL High 0.00-0.30 [facility] Comment on above: Performed By: #### L 500.3400, L500.4100 #### [facility] [address] [place], [address] Globulin (S) [Mass/Vol] 2.3 g/dL Normal 2.2-4.2 [facility] Comment on above: Performed By: #### L 500.3400, L500.4100 #### [facility] [address] [place], [address] T PROT 6.6 g/dL Normal 5.9-8.4 [facility] Comment on above: Performed By: #### L 500.3400, L500.4100 #### [facility] [address] [place], [address] Screening total cholesterol/ high density lipoprotein (HDL) cholesterol ratioOrdered By: Carmen Garcia on 11-06-2024 Cholesterol.total/Chol esterol in HDL [Mass ratio] 3.14 {ratio} [facility] Serum globulin measurementOr dered By: Carmen Garcia on 11-06-2024 Globulin (S) [Mass/Vol] 2.3 g/dL 2.2-4.2 [facility] Serum or plasma alanine tyler otransferase (ALT) measurementOrdered By: Carmen Garcia on 11-06-2024 ALT [Catalytic activity/Vol] 45 U/L <47 [facility] Serum or plasma albumin phillip urement (mass/volume)Ordered By: Carmen Garcia on 11-06-2024 Albumin [Mass/Vol] 4.3 g/dL 3.4-4.8 [facility] Serum or plasma alkaline mera sphatase measurementOrdered By: Carmen Garcia on 11-06-2024 ALP [Catalytic activity/Vol] 89 U/L 40-129 [facility] Serum or plasma cholesterol in HDL measurement (mass/volume)Ordered By: Carmen Garcia on 11-06-2024 Cholesterol in HDL [Mass/Vol] 41 mg/dL >40 [facility] Comment on above: National Cholesterol Education Program (NCEP) guidelines:<40 mg/dL: Low HDL-cholesterol (major risk factor for CHD)>= 60 mg/dL: High HDL-cholesterol (negative risk factor for CHD)HDL-cholesterol is affected by a number of factors, e.g. smoking, exercise, hormones, sex and age. Serum or plasma cholesterol measurement (mass/volume)Ordered By: Carmen Garcia on 11-06-2024 Cholesterol [Mass/Vol] 130 mg/dL <201 [facility] Comment on above: Cholesterol level, D esirable <200 mg/dLBorderline high cholesterol 200-239 mg/dLHigh cholesterol >=240 mg/dLRecommendations of the NCEP Adult Treatment Panel for the following risk-cutoff thresholds for the [place] population. Total proteinOrdered By: Venancio Garcia on 11-06-2024 Protein [Mass/Vol] 6.6 g/dL 5.9-8.4 [facility] Triglycerides measurementOrd ered By: Carmen Garcia on 11-06-2024 Triglyceride [Mass/Vol] 72 mg/dL <199 [facility] Comment on above: The drugs N-Acetylcy steine and Metamizole may falsely depress this assay. Normal range: <150 mg/dLBorderline High: 150-199 mg/dLHigh: 200-499 mg/dLVery High: >500 mg/dL Orthopedic Visit Reporton Orthopedic Visit Report [facility] [address] [place] [address] OFFICE VISIT Date of Service: 11/01/24 MR#: [id number] Acct: [id number] Name: ARTURO CORONADO Rep #: [id number] : 1945 Provider: Dr. Edwar rojas MD Age/Sex: 79/M Location[facility] Status: Signed Intake Vital Signs 10/12/24 14:20 [...] Medications ???Medication ???Instructions ???Recorded ???Confirmed ???Type coenzyme U68-U-zbppdgfoi 100 mg-20 1 ea PO DAILY 03/25/13 [...] reflux disease) Atherosclerosis of coronary artery of pilot station heart without angina pectoris Hyperlipidemia Surgical History [...] by me, Dr. Edwar Person MD 11/01/24 7338. Part of today???s visit was documented by [...] (mw 2.4-3.6 million) intra-articular syringe Performing Provider: Ewdar Person MD Performing Location: [facility] Administered by: Edwar Person MD on 11/01/24 13:56 Dose Route Admin Location Dispensed Lot Number Expiration Date NDC Man ufacturer 20 mg intra-articular Left knee 2 mL [id number] 03/08/25 [address]-6 [employer] Coding Level of Care Code Attention Jeffrey (more content not included)... Normal [facility] Orthopedic Visit Reporton Orthopedic Visit Report [facility] [address] [place] [address] OFFICE VISIT Date of Service: 10/25/24 MR#: [id number] Acct: [id number] Name: ARTURO CORONADO Rep #: [id number] : 1945 Provider: Dr. Edwar rojas MD Age/Sex: 79/M Location: [facility] Status: Signed Intake Vital Signs 10/12/24 14:20 [...] Medications ???Medication ???Instructions ???Recorded ???Confirmed ???Type coenzyme K20-J-xwdpkqyku 100 mg-20 1 ea PO DAILY 03/25/13 [...] reflux disease) Atherosclerosis of coronary artery of pilot station heart without angina pectoris Hyperlipidemia Surgical History History of orthopedic surgery History of facial surgery History of shoulder surgery H/O right knee surgery History of left heart catheterization (11/19/21) History of coronary artery stent placement (01/12/11) Family History Father CAD (coronary artery disease) [...] Performing Provider: Edwar Person MD Performing Location: [facility] Administered by: Edwar Person MD on 10/25/24 13:49 Dose Route Admin Location Dispensed Lot Number Expiration Date ND Man ufacturer 20 mg intra-articular Left knee 2 mL [id number] 03/08/25 [address]-3 [employer] NG [employer] Coding Level of Care Code Attention General Helper Diagnoses O (more content not included)... Normal [facility] Orthopedic Visit Reporton Orthopedic Visit Report [facility] [address] [place] [address] OFFICE VISIT Date of Service: 10/12/24 MR#: [id number] Acct: [id number] Name: ARTURO CORONADO Rep #: [id number] : 1945 Provider: Dr. Edwar rojas MD Age/Sex: 79/M Location: [facility] Status: Signed Intake Vital Signs 09/01/24 11:08 [...] Medications ???Medication ???Instructions ???Recorded ???Confirmed ???Type coenzyme V10-C-mshgtfoju 100 mg-20 1 ea PO DAILY 03/25/13 [...] past year?: Yes (April 2024) [facility] Medical History (Updated 10/12/24 @ 14:44 [...] reflux disease) Atherosclerosis of coronary artery of pilot station heart without angina pectoris Hyperlipidemia Surgical History [...] Patient worked quite a bit with an [employer]. He is retired now. Vxono-bnfd-wfccbbgw. He tried night splinting that was not [...] He has not had surgery. Supplemental Info [facility] [address] [place] [address] MR#: (more content not included)... Normal [facility] Internal Medicine Office Vis iton 09-01-2024 Internal Medicine Office Visit [facility] [address] [place] [address] [place] [address] OFFICE VISIT Date of Service: 09/01/24 MR#: [id number] Acct: [id number] Name: ARTURO CORONADO Rep #: [id number] : 1945 Provider: Dr. Gauri Pitt own, DO Age/Sex: 79/M Location[place] [facility] Status: Signed Intake Vital Signs 07/21/24 15:27 [...] Medications ???Medication ???Instructions ???Recorded ???Confirmed ???Type coenzyme P71-S-ciuzsbfsm 100 mg-20 1 ea PO DAILY 03/25/13 [...] reflux disease) Atherosclerosis of coronary artery of pilot station heart without angina pectoris Hyperlipidemia Surgical History [...] tinnitus, siomara (more content not included)... Normal [facility] Echo Completeon 08-04-[address] [facility] [address] [place] [address] Echo Complete 08/04/24 1303 MR#: [id number] Acct: [id number] Name: ARTURO CORONADO Rep #: [id number] : 1945 79 From: Adam Maloney MD [...] Dictated: 08/04/24 1303 Date Transcribed: 08/04/24 1434 Filament Maker: Signed Normal [facility] Internal Medicine Office Vis ito 07-21-2024 Internal Medicine Office Visit [facility] [address] [place] [address] [place] [address] OFFICE VISIT Date of Service: 07/21/24 MR#: [id number] Acct: [id number] Name: ARTURO CORONADO Rep #: [id number] : 1945 Provider: Dr. Gauri samson DO Age/Sex: 79/M Location: [facility] Status: Signed Intake Vital Signs 07/07/24 08:53 [...] Medications ???Medication ???Instructions ???Recorded ???Confirmed ???Type coenzyme Y11-Q-azbbjiclj 100 mg-20 1 ea PO DAILY 03/25/13 [...] post fall from about 2 months ago PFS Medical History Right shoulder strain Scabies Thyroid goiter Back pain due to injury Family history of colon cancer Seborrheic keratoses Cervical disc disease Cervical cord compression with myelopathy Painful neck Swallowing problem Chronic back pain Nonrheumatic mitral (valve) prolapse Essential (primary) hypertension Back pain Obstructive sleep apnea GERD (gastroesophageal reflux disease) Atherosclerosis of coronary artery of pilot station heart without angina pectoris Hyperlipidemia Surgical History [...] or change (more content not included)... Normal [facility] Knee 4 or More Viewson 07-21 Knee 4 or More Views [facility] Imaging Services [address] [place] [address] Knee 4 or More Views MR#: [id number] Acct: [id number] Name: DREAARTURO Merritt Rep #: [id number] : 1945 M 79 From: Tien Ferro MD PCP: Dr. Gauri Vila DO Status: REG CLI Study: Knee 4 or More Views Date of Exam: 07/21/24 Exam# [id number] Ordering Dr: Gauri Vila DO PROCEDURE: KNEE [...] derangement, recommend CT/MRI, as indicated. Reading Location: [facility] CC: Dr. Gauri Vila DO Filament Maker: Signed Normal [facility] Cardiology Visit Reporton Cardiology Visit Report [facility] [place] [facility] [address] [place] [address] OFFICE VISIT Date of Service: 07/07/24 MR#: [id number] Acct: [id number] Name: ARTURO CORONADO Rep #: [id number] : 1945 Provider: SEGUN Burton Age/Sex: 79/M Location: [facility] Status: Signed HPI HPI History of [...] He recently saw a neurosurgeon at the [facility] and was told that he would not benefit from any surgery. He has not needed to use any NTG. He does not have any worsening SOB. He has not had any palpitations. He does not have any lightheadedness/dizzine ss. He does not have any edema. He [...] 94 Intake Visit Reasons: 1 Y FU School Lunch Monitor Required: No Is patient in pain?: No Allergies niacin (From Niaspan Extended-Release) Allergy (Verified 07/07/24 14:22) Extreme Itching cyclobenzaprine Adverse Reaction (Unknown, Verified 07/07/24 14:22) Heart feels like wants to stop Medications ???Medication ???Instructions ???Recorded ???Confirmed ???Type coenzyme S95-V-qayiagunj 100 mg-20 1 ea PO DAILY 03/25/13 [...] unable to confirm all medications [facility] Medical History Right shoulder strain Scabies Thyroid goiter Back pain due to injury Family history of colon cancer Seborrheic keratoses Cervical disc disease Cervical cord compression with myelopathy Painful neck Swallowing problem Chronic back pain Nonrheumatic mitral (valve) prolapse Essential (primary) hypertension Back pain Obstructive sleep apnea GERD (gastroesophageal reflux disease) Atherosclerosis of coronary artery of pilot [place] heart without angina pectoris Hyperlipidemia Surgical History History of orthopedic surgery History of facial surgery History of shoulder surgery H/O right knee surgery History of left heart catheterization (11/19/21) History of coronary artery stent placement (05/16/10) Family History Father CAD (coronary artery disease) Diabetes Heart disease Myocardial infarction Hypertension Mother Heart disease Diabetes CVA (cerebral vascular accident) S (more content not included)... Normal [facility] Bilirubin directOrdered By: Carmen Garcia on 07-05-2024 Bilirubin.direct [Mass/Vol] 0.51 mg/dL High 0.00-0.30 [facility] Bilirubin, totalOrdered By: Carmen Garcia on 07-05-2024 Bilirubin [Mass/Vol] 1.38 mg/dL High 0.00-1.30 [facility] Calculated very low density lipoprotein (VLDL) cholesterol measurementOrdered By: Carmen Garcia on 07-05-2024 Calculated very low density lipoprotein (VLDL) cholesterol measurement 15 mg/dL 5-40 [facility] VLDL Cholesterol 15 mg/dL 5-40 [facility] LDL calc ser/plasOrdered By: Carmen Garcia on 07-05-2024 Cholesterol in LDL [Mass/Vol] 62 mg/dL [facility] Comment on above: Zzbbresyex=678-157 m g/dL & Higher Xtwv=099 mg/dL or greater LDL Cholesterol, Calculated 62 mg/dL [facility] Comment on above: Drbunifjxy=234-049 m g/dL & Higher Tbmv=579 mg/dL or greater Laboratory - Chemistry and C hemistry - challengeOrdered By: Carmen Garcia on 07-05-2024 AST [Catalytic activity/Vol] 43 U/L High <38 [facility] Lipid Profileon 07-05-2024 CHOL:HDL 2.65 Normal [facility] Comment on above: Order Comment: PT [place] NTED DFONE TODAY Performed By: #### L 500.4100, L500.3400 ####[facility] [address] [place], [place], [address] Cholesterol [Mass/Vol] 123 mg/dL Normal <=200 [facility] Comment on above: Order Comment: PT [place] NTED DFONE TODAY Result Comment: Chol esterol level, Desirable <200 mg/dL Borderline high cholesterol 200-239 mg/dL High cholesterol >=240 mg/dL Recommendations of the NCEP Adult Treatment Panel for the following risk-cutoff thresholds for the [place] population. Performed By: #### L 500.4100, L500.3400 ####[facility] [address] [place], [address] Cholesterol in HDL [Mass/Vol] 47 mg/dL Normal [facility] Comment on above: Order Comment: PT [place] NTED DFONE TODAY Result Comment: Alejandra onal Cholesterol Education Program (NCEP) guidelines: <40 mg/dL: Low HDL-cholesterol (major risk factor for CHD) >= 60 mg/dL: High HDL-cholesterol (negative risk factor for CHD) HDL-cholesterol is affected by a number of factors, e.g. smoking, exercise, hormones, sex and age. Performed By: #### L 500.4100, L500.3400 ####[facility] [address] [place], [address] Cholesterol in LDL [Mass/Vol] 62 mg/dL Normal [facility] Comment on above: Order Comment: MICHELLE MCPHERSON NTED DFONE TODAY Result Comment: Bord ufzbkf=382-293 mg/dL Higher Weqd=430 mg/dL or greater Performed By: #### L 500.4100, L500.3400 ####[facility] [address] [place], [address] Cholesterol in VLDL [Mass/Vol] 15 mg/dL Normal 5-40 [facility] Comment on above: Order Comment: PT [place] NTED DFONE TODAY Performed By: #### L 500.4100, L500.3400 ####[facility] [address] [place], [address] Triglyceride [Mass/Vol] 73 mg/dL Normal [facility] Comment on above: Order Comment: PT [place] NTED DFONE TODAY Result Comment: The drugs N-Acetylcysteine and Metamizole may falsely depress this assay. Normal range: <150 mg/dL Borderline High: 150-199 mg/dL High: 200-499 mg/dL Very High: >500 mg/dL Performed By: #### L 500.4100, L500.3400 ####[facility] [address] [place], [address] Liver Profileon 07-05-2024 Albumin [Mass/Vol] 4.1 g/dL Normal 3.4-4.8 [facility] Comment on above: Order Comment: PT [place] NTED DFONE TODAY Performed By: #### L 500.4100, L500.3400 ####[facility] [address] [place], [address] ALK PHOS 105 U/L Normal 40-129 [facility] Comment on above: Order Comment: PT [place] NTED DFONE TODAY Performed By: #### L 500.4100, L500.3400 ####[facility] [address] [place], [address] ALT [Catalytic activity/Vol] 44 U/L Normal <=46 [facility] Comment on above: Order Comment: PT [place] NTED DFONE TODAY Performed By: #### L 500.4100, L500.3400 ####[facility] [address] [place], [address] AST [Catalytic activity/Vol] 43 U/L High <=37 [facility] Comment on above: Order Comment: PT [place] NTED DFONE TODAY Performed By: #### L 500.4100, L500.3400 ####[facility] [address] [place], [address] Bilirubin [Mass/Vol] 1.38 mg/dL High 0.00-1.30 [facility] Comment on above: Order Comment: PT [place] NTED DFONE TODAY Performed By: #### L 500.4100, L500.3400 ####[facility] [address] [place], [address] Bilirubin.direct [Mass/Vol] 0.51 mg/dL High 0.00-0.30 [facility] Comment on above: Order Comment: PT [place] NTED DFONE TODAY Performed By: #### L 500.4100, L500.3400 ####[facility] [address] [place], [address] Globulin (S) [Mass/Vol] 2.4 g/dL Normal 2.2-4.2 [facility] Comment on above: Order Comment: PT [place] NTED DFONE TODAY Performed By: #### L 500.4100, L500.3400 ####[facility] [address] [place], [address] T PROT 6.5 g/dL Normal 5.9-8.4 [facility] Comment on above: Order Comment: PT [place] NTED DFONE TODAY Performed By: #### L 500.4100, L500.3400 ####[facility] [address] [place], [address] Screening total cholesterol/ high density lipoprotein (HDL) cholesterol ratioOrdered By: Carmen Garcia on 07-05-2024 Cholesterol.total/Chol esterol in HDL [Mass ratio] 2.65 {ratio} [facility] Serum globulin measurementOr dered By: Carmen Garcia on 07-05-2024 Globulin (S) [Mass/Vol] 2.4 g/dL 2.2-4.2 [facility] Serum or plasma alanine tyler otransferase (ALT) measurementOrdered By: Carmen Garcia on 07-05-2024 ALT [Catalytic activity/Vol] 44 U/L <47 [facility] Serum or plasma albumin phillip urement (mass/volume)Ordered By: Carmen Garcia on 07-05-2024 Albumin [Mass/Vol] 4.1 g/dL 3.4-4.8 [facility] Serum or plasma alkaline mera sphatase measurementOrdered By: Carmen Garcia on 07-05-2024 ALP [Catalytic activity/Vol] 105 U/L 40-129 [facility] Serum or plasma cholesterol in HDL measurement (mass/volume)Ordered By: Carmen Garcia on 07-05-2024 Cholesterol in HDL [Mass/Vol] 47 mg/dL >40 [facility] Comment on above: National Cholesterol Education Program (NCEP) guidelines:<40 mg/dL: Low HDL-cholesterol (major risk factor for CHD)>= 60 mg/dL: High HDL-cholesterol (negative risk factor for CHD)HDL-cholesterol is affected by a number of factors, e.g. smoking, exercise, hormones, sex and age. Serum or plasma cholesterol measurement (mass/volume)Ordered By: Carmen Garcia on 07-05-2024 Cholesterol [Mass/Vol] 123 mg/dL <201 [facility] Comment on above: Cholesterol level, D esirable <200 mg/dLBorderline high cholesterol 200-239 mg/dLHigh cholesterol >=240 mg/dLRecommendations of the NCEP Adult Treatment Panel for the following risk-cutoff thresholds for the [place] population. Total proteinOrdered By: Venancio Garcia on 07-05-2024 Protein [Mass/Vol] 6.5 g/dL 5.9-8.4 [facility] Triglycerides measurementOrd ered By: Carmen Garcia on 07-05-2024 Triglyceride [Mass/Vol] 73 mg/dL <199 [facility] Comment on above: The drugs N-Acetylcy steine and Metamizole may falsely depress this assay. Normal range: <150 mg/dLBorderline High: 150-199 mg/dLHigh: 200-499 mg/dLVery High: >500 mg/dL Internal Medicine Office Vis iton 04-14-2024 Internal Medicine Office Visit [facility] [address] [place], [place] [address] OFFICE VISIT Date of Service: 04/14/24 MR#: [id number] Acct: [id number] Name: ARTURO CORONADO Rep #: [id number] : 1945 Provider: Dr. Gauri samson, DO Age/Sex: 79/M Location: [facility] Status: Signed Intake Vital Signs 04/03/24 10:15 04/14/24 16:23 Height 5 ft 11 in 5 ft 11 in Weight: 180 lb BMI 25.1 BP 118/70 Blood Pressure Location Lt brachial Position Sitting Respiration 16 Pulse 71 Pulse Source Monitor Temp 97.3 F L Temp Source Temporal Intake Visit Reasons: [facility] Chief Complaint: [facility] f/u School Lunch Monitor Required: No Accompanied by: Self Is patient in pain?: No Allergies niacin (From Niaspan Extended-Release) Allergy (Verified 04/14/24 16:20) Extreme Itching cyclobenzaprine Adverse Reaction (Unknown, Verified 04/14/24 16:20) Heart feels like wants to stop Medications ???Medication ???Instructions ???Recorded ???Confirmed ???Type coenzyme F85-C-gctyczpgb 100 mg-20 1 ea PO DAILY 03/25/13 [...] reflux disease) Atherosclerosis of coronary artery of pilot station heart without angina pectoris Hyperlipidemia Surgical History [...] at home: Yes HPI HPI Chief Complaint: [facility] f/u Details: ARTURO CORONADO, is a [...] chest p (more content not included)... [facility] Office Visit (UCWSTR ) ARTURO CORONADO ([id number]) 1945 M Date Time Provider Department 04/03/24 9:45 AM MANDY LAZARO [facility] During your visit today, we recorded the following information about you: Temperature Pulse Respiration Blood pressure 97.5 degrees 67/minute 20/minute 110/80 Weight 81 kg Mandy Lazaro PA-C 04/03/2024 9:59 AM Signed This note was created using [employer]. Subjective Arturo Coronado is a 79 year [...] the emergency department. He will go to [facility] across the street. 2. History of DVT (deep vein thrombosis) - ICD9: V12.51, ICD10: Z86.718 SEGUN Gama-Marycruz Allergies As of Date: 04/03/2024 Noted Allergy [...] ORAL tablet (more content not included)... Normal [facility] Emergency Department Summary on 04-03-2024 Emergency Department Summary [facility] Medical Records Department [address] [place] [address] Emergency Department Summary 04/03/24 MR#: [id number] Acct: [id number] Name: ARTURO CORONADO René Rep #: [id number] : 1945 79 From: Lisa Fernandez DO [...] He has history of a cardiac stent. [facility] Medical History Right shoulder strain Scabies Thyroid goiter Back pain due to injury Family history of colon cancer Seborrheic keratoses Cervical disc disease Cervical cord compression with myelopathy Painful neck Swallowing problem Chronic back pain Nonrheumatic mitral (valve) prolapse Essential (primary) hypertension Back pain Obstructive sleep apnea GERD (gastroesophageal reflux disease) Atherosclerosis of coronary artery of pilot [place] heart without angina pectoris Hyperlipidemia Home Medications ???Medication ???Instructions ???Recorded ???Last Taken ???Type coenzyme T23-A-xthnffyhd 100 mg-20 1 ea PO DAILY 03/25/13 [...] ED: Denie (more content not included)... Normal [facility] Venous Duplex US, Unilateral on 04-03-2024 Venous Duplex US, Unilateral [facility] [address] [place] [address] Venous Duplex US, Unilateral 04/03/24 1249 MR#: [id number] Acct: [id number] Name: ARTURO CORONADO Rep #: [id number] : 1945 79 From: Drake Carmen MD [...] Date Dictated: 04/03/24 1249 Date Transcribed: 04/03/24 161 Filament Maker: Signed Normal [facility] Lipid Profileon 03-15-2024 Cholesterol [Mass/Vol] 129 mg/dL Normal 200 [facility] Comment on above: Result Comment: <200 mg/dL Desirable 200-240 mg/dL Borderline >240 mg/dL High Risk Performed By: #### L 500.4100, L500.3400 ####[facility] [address] [place], [address] Cholesterol in HDL [Mass/Vol] 46 mg/dL Normal [facility] Comment on above: Result Comment: The drugs N-Acetylcysteine and Metamizole may falsely depress this assay. Reference Range HDL <40 mg/dL Low HDL Cholesterol HDL >or= 60 mg/dL High HDL Cholesterol Performed By: #### L 500.4100, L500.3400 ####[facility] [address] [place], [address] Cholesterol in LDL [Mass/Vol] 72 mg/dL Normal 0-130 [facility] Comment on above: Performed By: #### L 500.4100, L500.3400 ####[facility] [address] [place], [address] Cholesterol in VLDL [Mass/Vol] 11 mg/dL Normal 5-40 [facility] Comment on above: Performed By: #### L 500.4100, L500.3400 ####[facility] [address] [place], [address] Triglyceride [Mass/Vol] 53 mg/dL Normal [facility] Comment on above: Result Comment: The drugs N-Acetylcysteine and Metamizole may falsely depress this assay. Serum Triglycerides Reference Interval Normal <150 mg/dL Borderline high 150 - 199 mg/dL High 200 - 499 mg/dL Very High > or = 500 mg/dL Performed By: #### L 500.4100, L500.3400 ####[facility] [address] [place], [address] Liver Profileon 03-15-2024 Albumin [Mass/Vol] 3.9 g/dL Normal 3.2-5.0 [facility] Comment on above: Performed By: #### L 500.4100, L500.3400 ####[facility] [address] [place], [address] ALK P 94 U/L Normal 45-117 [facility] Comment on above: Performed By: #### L 500.4100, L500.3400 ####[facility] [address] [place], [address] ALT [Catalytic activity/Vol] 36 U/L Normal 16-61 [facility] Comment on above: Performed By: #### L 500.4100, L500.3400 ####[facility] [address] [place], [address] AST [Catalytic activity/Vol] 28 U/L Normal 15-37 [facility] Comment on above: Performed By: #### L 500.4100, L500.3400 ####[facility] [address] [place], [address] Bilirubin [Mass/Vol] 1.10 mg/dL High 0.20-1.00 [facility] Comment on above: Result Comment: For patients on eltrombopag therapy, use of Dimension Nebo TBIL is not recommended. Performed By: #### L 500.4100, L500.3400 ####[facility] [address] [place], [address] Bilirubin.direct [Mass/Vol] 0.27 mg/dL Normal 0.00-0.30 [facility] Comment on above: Performed By: #### L 500.4100, L500.3400 ####[facility] [address] [place], [address] Globulin (S) [Mass/Vol] 3.0 g/dL Normal 2.2-4.2 [facility] Comment on above: Performed By: #### L 500.4100, L500.3400 ####[facility] [address] [place], [address] T PROT 6.9 g/dL Normal 6.4-8.2 [facility] Comment on above: Performed By: #### L 500.4100, L500.3400 ####[facility] [address] [place], [address] Internal Medicine Office Vis gato 02-04-2024 Internal Medicine Office Visit [facility] [address] [place] [address] [place] [address] OFFICE VISIT Date of Service: 02/04/24 MR#: [id number] Acct: [id number] Name: CORONADOARTURO René Rep #: [id number] : 1945 Provider: Dr. Gauri samson, DO Age/Sex: 78/M [place] [facility] Status: Signed Intake Vital Signs 01/13/24 14:00 [...] room air Intake Visit Reasons: BP ISSUES School Lunch Monitor Required: No Is patient in pain?: No Allergies niacin (From Niaspan Extended-Release) Allergy (Verified 02/04/24 15:46) Extreme Itching cyclobenzaprine Adverse Reaction (Unknown, Verified 02/04/24 15:46) Heart feels like wants to stop Medications ???Medication ???Instructions ???Recorded ???Confirmed ???Type coenzyme [id number] 100 mg-20 1 ea PO DAILY 03/25/13 [...] here in office and all checked out. PFSH Medical History Right shoulder strain Scabies Thyroid goiter Back pain due to injury Family history of colon cancer Seborrheic keratoses Cervical disc disease Cervical cord compression with myelopathy Painful neck Swallowing problem Chronic back pain Nonrheumatic mitral (valve) prolapse Essential (primary) hypertension Back pain Obstructive sleep apnea GERD (gastroesophageal reflux disease) Atherosclerosis of coronary artery of [place] heart without angina pectoris Hyperlipidemia Surgical History [...] Eyes Eyes: (more content not included)... Normal [facility] Serum or plasma thyroid stim ulating hormone (TSH) measurement (units/volume)Ordered By: Bib Haque on 03-08-2024 TSH Qn 2.43 uIU/mL 0.358-3.74 [facility] Thin prep Papanicolaou smear with manual screeningOrdered By: Bib Haque on 07-11-2023 Thin prep Papanicolaou smear with manual screening 0.93 ng/dL 0.76-1.46 [facility] Basophil percentageOrdered B y: Adam Maloney on 07-02-2023 Bilirubin [Mass/Vol] 1.20 mg/dL 0.20-1.00 [facility] Comment on above: For patients on eltr ombopag therapy, use of Dimension Nebo TBIL is not recommended. Cholesterol [Mass/Vol] 139 mg/dL <200 [facility] Comment on above: <200 mg/dL Desirable 200-240 mg/dL Borderline >240 mg/dL High Risk Protein [Mass/Vol] 6.7 g/dL 6.4-8.2 [facility] Triglyceride [Mass/Vol] 64 mg/dL <199 [facility] Comment on above: The drugs N-Acetylcy steine and Metamizole may falsely depress this assay.Serum Triglycerides Reference Interval Normal <150 mg/dL Borderline high 150 - 199 mg/dL High 200 - 499 mg/dL Very High > or = 500 mg/dL Direct bilirubinOrdered By: Adam Maloney on 07-02-2023 Bilirubin.direct [Mass/Vol] 0.31 mg/dL 0.00-0.30 [facility] Laboratory - Chemistry and C hemistry - challengeOrdered By: Adam Maloney on 07-02-2023 ALP [Catalytic activity/Vol] 76 U/L 45-117 [facility] ALT [Catalytic activity/Vol] 44 U/L 16-61 [facility] Cholesterol in HDL [Mass/Vol] 46 mg/dL >40 [facility] Comment on above: The drugs N-Acetylcy steine and Metamizole may falsely depress this assay. Reference Range HDL <40 mg/dL Low HDL Cholesterol HDL >or= 60 mg/dL High HDL Cholesterol Cholesterol in LDL [Mass/Vol] 80 mg/dL 0-130 [facility] Globulin (S) [Mass/Vol] 2.9 g/dL 2.2-4.2 [facility] No Panel InformationOrdered By: Adam Maloney on 07-02-2023 VLDL Cholesterol 13 mg/dL 5-40 [facility] Thin prep Papanicolaou smear with manual screeningOrdered By: Adam Maloney on 07-02-2023 Thin prep Papanicolaou smear with manual screening 3.8 g/dL 3.2-5.0 [facility] Thin prep Papanicolaou smear with manual screening 35 U/L 15-37 [facility] No Panel Informationon 04-24 Influenza Types A,B Rapid (Clinic) Negative [facility] POC SARS CoV-2 Antigen Negative [facility] Basophil percentageOrdered B y: Adam Maloney on 11-13-2022 Bilirubin [Mass/Vol] 1.30 mg/dL 0.20-1.00 [facility] Comment on above: For patients on eltr ombopag therapy, use of Dimension Nebo TBIL is not recommended. Cholesterol [Mass/Vol] 122 mg/dL <200 [facility] Comment on above: <200 mg/dL Desirable 200-240 mg/dL Borderline >240 mg/dL High Risk Protein [Mass/Vol] 6.9 g/dL 6.4-8.2 [facility] Triglyceride [Mass/Vol] 46 mg/dL <199 [facility] Comment on above: The drugs N-Acetylcy steine and Metamizole may falsely depress this assay.Serum Triglycerides Reference Interval Normal <150 mg/dL Borderline high 150 - 199 mg/dL High 200 - 499 mg/dL Very High > or = 500 mg/dL Direct bilirubinOrdered By: Adam Maloney on 11-13-2022 Bilirubin.direct [Mass/Vol] 0.32 mg/dL 0.00-0.30 [facility] Laboratory - Chemistry and C hemistry - challengeOrdered By: Adam Maloney on 11-13-2022 ALP [Catalytic activity/Vol] 83 U/L 45-117 [facility] ALT [Catalytic activity/Vol] 41 U/L 16-61 [facility] Globulin (S) [Mass/Vol] 3.2 g/dL 2.2-4.2 [facility] No Panel InformationOrdered By: Adam Maloney on 11-13-2022 Prostate Specific Antigen Screen 2.24 ng/mL 0.00-4.00 [facility] Comment on above: This test was perfor med using the TPSA assay method for thePieceablekajeet chemistry system. Values obtained with differentassay methods cannot be used interchangably.When changing PSA assays in the course of monitoring apatient, additional sequential testing should be carriedout to confirm baseline values. Serum or plasma albumin phillip urement (mass/volume)Ordered By: Adam Maloney on 11-13-2022 Albumin [Mass/Vol] 3.7 g/dL 3.2-5.0 [facility] Serum or plasma cholesterol in HDL measurement (mass/volume)Ordered By: Adam Amara on 11-13-2022 Cholesterol in HDL [Mass/Vol] 41 mg/dL >40 [facility] Comment on above: The drugs N-Acetylcy steine and Metamizole may falsely depress this assay. Reference Range HDL <40 mg/dL Low HDL Cholesterol HDL >or= 60 mg/dL High HDL Cholesterol Serum or plasma cholesterol in VLDL measurement (mass/volume)Ordered By: Adam Maloney on 11-13-2022 Cholesterol in VLDL [Mass/Vol] 9 mg/dL 5-40 [facility] Serum or plasma low density lipoprotein (LDL) cholesterol measurement (mass/volume)Ordered By: Adam Maloney on 11-13-2022 Cholesterol in LDL [Mass/Vol] 72 mg/dL 0-130 [facility] Thin prep Papanicolaou smear with manual screeningOrdered By: Adam Maloney on 11-13-2022 Thin prep Papanicolaou smear with manual screening 40 U/L 15-37 [facility] Absolute lymphocyte countOrd ered By: Fer Carr on 09-20-2022 Lymphocytes Auto (Unsp spec) [#/Vol] 1.55 10*3/uL 0.83-4.51 [facility] Basophil percentageOrdered B y: Fer Carr on 09-20-2022 Basophils/100 WBC (Bld) 0.9 % 0-1 [facility] Bilirubin [Mass/Vol] 0.90 mg/dL 0.20-1.00 [facility] Comment on above: For patients on eltr ombopag therapy, use of Dimension Nebo TBIL is not recommended. Chloride [Moles/Vol] 108 mmol/L 98-107 [facility] Eosinophils/100 WBC (Bld) 4.1 % 0-5 [facility] Glucose [Mass/Vol] 109 mg/dL 74-106 [facility] Comment on above: Fasting Glucose resu lt from 100 to 125 mg/dL suggests IMPAIRED HOMEOSTASIS per A.D.A. criteria. Neutrophils (Bld) [#/Vol] 3.2 10*3/uL 2.0-7.7 [facility] Neutrophils/100 WBC (Bld) 58.0 % 47-70 [facility] Potassium [Moles/Vol] 4.2 mmol/L 3.5-5.1 [facility] Protein [Mass/Vol] 7.0 g/dL 6.4-8.2 [facility] Sodium [Moles/Vol] 139 mmol/L 136-145 [facility] WBC (Bld) [#/Vol] 5.6 10*3/uL 4.4-11.0 [facility] Basophil percentage 0 SEEN /hpf 0-5 [facility] Bilirubin Test strip Ql (U)O rdered By: Fer Carr on 09-20-2022 Bilirubin Ql (U) Negative Negative [facility] Blood erythrocytes count (nu mber/volume)Ordered By: Fer Carr on 09-20-2022 RBC (Bld) [#/Vol] 5.15 10*6/uL 4.6-6.2 [facility] Blood hemoglobin measurement (mass/volume)Ordered By: Fer Carr on 09-20-2022 Hemoglobin (Bld) [Mass/Vol] 16.0 g/dL 13.0-16.5 [facility] Blood lymphocytes/100 leukoc ytesOrdered By: Fer Carr on 09-20-2022 Lymphocytes/100 WBC (Bld) 27.7 % 19-41 [facility] Blood monocytes/100 leukocyt esOrdered By: Fer Carr on 09-20-2022 Monocytes/100 WBC (Bld) 9.1 % 0-10 [facility] Blood platelet mean volumeOr dered By: Fer Carr on 09-20-2022 Platelet mean volume (Bld) [Entitic vol] 10.1 fL 6.2-12.0 [facility] Determination of erythrocyte mean corpuscular volume (MCV)Ordered By: Fer Carr on 09-20-2022 MCV (RBC) [Entitic vol] 90.9 fL 80-94 [facility] Hematocrit Auto (Bld) [Volum e fraction]Ordered By: Fer Carr on 09-20-2022 Hematocrit (Bld) [Volume fraction] 46.8 % 40-54 [facility] Ketones Test strip Ql (U)Ord ered By: Fer Carr on 09-20-2022 Ketones Ql (U) Negative Negative [facility] Laboratory - Chemistry and C hemistry - challengeOrdered By: Fer Carr on 09-20-2022 ALP [Catalytic activity/Vol] 79 U/L 45-117 [facility] ALT [Catalytic activity/Vol] 45 U/L 16-61 [facility] CO2 [Moles/Vol] 25.0 mmol/L 21.0-32.0 [facility] Globulin (S) [Mass/Vol] 3.4 g/dL 2.2-4.2 [facility] Urea nitrogen/Creatinine [Mass ratio] 14.7 mg/mg 10-20 [facility] Laboratory - Hematology and Cell countsOrdered By: Fer Carr on 09-20-2022 Erythrocyte distribution width (RBC) [Entitic vol] 43.3 fL 35.1-43.9 [facility] Erythrocyte distribution width (RBC) [Ratio] 13.1 % 11.6-14.6 [facility] Immature granulocytes/100 WBC (Bld) 0.200 % 0.0-0.9 [facility] Comment on above: IG% - Immature Granu locytes (promyelocytes, myelocytes and metamyelocytes) > 1% indicates that a LEFT SHIFT is Present. MCH (RBC) [Entitic mass] 31.1 pg 27.0-32.0 [facility] Nucleated RBC/100 WBC (Bld) [Ratio] 0 % 0-5 [facility] MCHC Auto (RBC) [Mass/Vol]Or dered By: Fer Carr on 09-20-2022 MCHC (RBC) [Mass/Vol] 34.2 g/dL 32-36 [facility] Mucus LM Ql (Urine sed)Order ed By: Fer Carr on 09-20-2022 Mucus Ql (Urine sed) 0 SEEN /hpf [facility] Nitrite Test strip Ql (U)Ord ered By: Fer Carr on 09-20-2022 Nitrite Ql (U) Negative Negative [facility] No Panel InformationOrdered By: Fer Carr on 09-20-2022 Estimated Creatinine Clearance Calc 77.25 ml/min [facility] Estimated GFR (MDRD) Amer 108 mL/min >60 [facility] Comment on above: GFR Calc Estimated GFR (MDRD) Non-Af Amer 89 mL/min >60 [facility] Comment on above: Non- GFR Calc Platelets bldOrdered By: Megan Carr on 09-20-2022 Platelets (Bld) [#/Vol] 187 10*3/uL 150-450 [facility] Protein Test strip Ql (U)Ord ered By: Fer Carr on 09-20-2022 Protein Ql (U) Negative Negative [facility] Serum or plasma albumin phillip urement (mass/volume)Ordered By: Fer Carr on 09-20-2022 Albumin [Mass/Vol] 3.6 g/dL 3.2-5.0 [facility] Serum or plasma albumin/glob ulin mass ratioOrdered By: Fer Carr on 09-20-2022 Albumin/Globulin [Mass ratio] 1.1 {ratio} 0.9-2.4 [facility] Serum or plasma calcium phillip urement (mass/volume)Ordered By: Fer Carr on 09-20-2022 Calcium [Mass/Vol] 9.0 mg/dL 8.5-10.1 [facility] Serum or plasma creatinine m easurement (mass/volume)Ordered By: Fer Carr on 09-20-2022 Creatinine [Mass/Vol] 0.88 mg/dL 0.70-1.30 [facility] Comment on above: The validity of the calculated GFR & GFRAA in patients over 70 years has not been determined. Clinical correlation is essential. Serum or plasma urea nitroge n measurement (mass/volume)Ordered By: Fer Carr on 09-20-2022 Urea nitrogen [Mass/Vol] 13 mg/dL 7-18 [facility] Squamous epithelial cells de tection in urine sediment by light microscopyOrdered By: Fer Carr on 09-20-2022 Epithelial cells.squamous LM Ql (Urine sed) 0 SEEN /hpf 0-5 [facility] Thin prep Papanicolaou smear with manual screeningOrdered By: Fer Carr on 09-20-2022 Thin prep Papanicolaou smear with manual screening 42 U/L 15-37 [facility] Thin prep Papanicolaou smear with manual screening 6 5-15 [facility] Urine blood detectionOrdered By: Fer Carr on 09-20-2022 RBC Ql (U) Negative Negative [facility] RBC Ql (U) 0 SEEN /hpf 0-5 [facility] Urine clarityOrdered By: Megan Carr on 09-20-2022 Clarity (U) Clear Clear [facility] Urine color determinationOrd ered By: Fer Carr on 09-20-2022 Color (U) Yellow Yellow [facility] Urine glucose detectionOrder ed By: Fer Carr on 09-20-2022 Glucose Ql (U) Normal mg/dl Normal [facility] Urine leukocyte esterase det ection by dipstickOrdered By: Fer Carr on 09-20-2022 Leukocyte esterase Test strip Ql (U) Negative Negative [facility] Urine pHOrdered By: Fer myers on 09-20-2022 pH (U) 6.0 [pH] 5.0 - 8.0 [facility] Urine sediment bacteria coun t by microscopy (number/high power field)Ordered By: Fer Carr on 09-20-2022 Bacteria LM.HPF (Urine sed) [#/Area] 0 /[HPF] None Seen [facility] Urine specific gravity measu rementOrdered By: Fer Carr on 09-20-2022 Specific gravity (U) [Rel density] 1.015 1.002-1.030 [facility] Urobilinogen Auto test strip Ql (U)Ordered By: Fer Carr on 09-20-2022 Urobilinogen Ql (U) Normal mg/dl Normal [facility] Absolute lymphocyte counton 04-17-2022 Lymphocytes Auto (Unsp spec) [#/Vol] 2.00 10*3/uL 0.83-4.51 [facility] Work Phone: Basophil percentageon 04-17- 2021 Basophils/100 WBC (Bld) 1.0 % 0-1 [facility] Work Phone: Bilirubin [Mass/Vol] 1.10 mg/dL 0.20-1.00 [facility] Work Phone: Comment on above: For patients on eltr ombopag therapy, use of Dimension Nebo TBIL is not recommended. Chloride [Moles/Vol] 108 mmol/L 98-107 [facility] Work Phone: Cholesterol [Mass/Vol] 145 mg/dL <200 [facility] Work Phone: Comment on above: <200 mg/dL Desirable 200-240 mg/dL Borderline >240 mg/dL High Risk Eosinophils/100 WBC (Bld) 8.1 % 0-5 [facility] Work Phone: Glucose [Mass/Vol] 103 mg/dL 74-106 [facility] Work Phone: Comment on above: Fasting Glucose resu lt from 100 to 125 mg/dL suggests IMPAIRED HOMEOSTASIS per A.D.A. criteria. Neutrophils (Bld) [#/Vol] 3.0 10*3/uL 2.0-7.7 [facility] Work Phone: Neutrophils/100 WBC (Bld) 48.4 % 47-70 [facility] Work Phone: Potassium [Moles/Vol] 4.7 mmol/L 3.5-5.1 [facility] Work Phone: Protein [Mass/Vol] 6.7 g/dL 6.4-8.2 [facility] Work Phone: Sodium [Moles/Vol] 141 mmol/L 136-145 [facility] Work Phone: Triglyceride [Mass/Vol] 131 mg/dL <199 [facility] Work Phone: Comment on above: The drugs N-Acetylcy steine and Metamizole may falsely depress this assay.Serum Triglycerides Reference Interval Normal <150 mg/dL Borderline high 150 - 199 mg/dL High 200 - 499 mg/dL Very High > or = 500 mg/dL WBC (Bld) [#/Vol] 6.1 10*3/uL 4.4-11.0 [facility] Work Phone: Blood erythrocytes count (nu mber/volume)on 04-17-2022 RBC (Bld) [#/Vol] 5.25 10*6/uL 4.6-6.2 [facility] Work Phone: Blood hemoglobin measurement (mass/volume)on 04-17-2022 Hemoglobin (Bld) [Mass/Vol] 16.3 g/dL 13.0-16.5 [facility] Work Phone: Blood lymphocytes/100 leukoc yteson 04-17-2022 Lymphocytes/100 WBC (Bld) 32.6 % 19-41 [facility] Work Phone: Blood monocytes/100 leukocyt eson 04-17-2022 Monocytes/100 WBC (Bld) 9.6 % 0-10 [facility] Work Phone: Blood platelet mean volumeon 04-17-2022 Platelet mean volume (Bld) [Entitic vol] 10.9 fL 6.2-12.0 [facility] Work Phone: Determination of erythrocyte mean corpuscular volume (MCV)on 04-17-2022 MCV (RBC) [Entitic vol] 93.1 fL 80-94 [facility] Work Phone: Direct bilirubinon 2 Bilirubin.direct [Mass/Vol] 0.28 mg/dL 0.00-0.30 [facility] Work Phone: Hematocrit Auto (Bld) [Volum e fraction]on 04-17-2022 Hematocrit (Bld) [Volume fraction] 48.9 % 40-54 [facility] Work Phone: Laboratory - Chemistry and C hemistry - challengeon 04-17-2022 ALP [Catalytic activity/Vol] 79 U/L 45-117 [facility] Work Phone: ALT [Catalytic activity/Vol] 50 U/L 16-61 [facility] Work Phone: CO2 [Moles/Vol] 27.0 mmol/L 21.0-32.0 [facility] Work Phone: Globulin (S) [Mass/Vol] 3.0 g/dL 2.2-4.2 [facility] Work Phone: Urea nitrogen/Creatinine [Mass ratio] 15.2 mg/mg 10-20 [facility] Work Phone: Laboratory - Hematology and Cell countson 04-17-2022 Erythrocyte distribution width (RBC) [Entitic vol] 44.7 fL 35.1-43.9 [facility] Work Phone: Erythrocyte distribution width (RBC) [Ratio] 13.0 % 11.6-14.6 [facility] Work Phone: Immature granulocytes/100 WBC (Bld) 0.300 % 0.0-0.9 [facility] Work Phone: Comment on above: IG% - Immature Granu locytes (promyelocytes, myelocytes and metamyelocytes) > 1% indicates that a LEFT SHIFT is Present. MCH (RBC) [Entitic mass] 31.0 pg 27.0-32.0 [facility] Work Phone: Nucleated RBC/100 WBC (Bld) [Ratio] 0 % 0-5 [facility] Work Phone: MCHC Auto (RBC) [Mass/Vol]on 04-17-2022 MCHC (RBC) [Mass/Vol] 33.3 g/dL 32-36 [facility] Work Phone: No Panel Informationon 04-17 Estimated GFR (MDRD) Amer 95 mL/min >60 [facility] Work Phone: Comment on above: GFR Calc Estimated GFR (MDRD) Non-Af Amer 78 mL/min >60 [facility] Work Phone: Comment on above: Non- GFR Calc Platelets bldon 04-17-2022 Platelets (Bld) [#/Vol] 195 10*3/uL 150-450 [facility] Work Phone: Serum or plasma albumin phillip urement (mass/volume)on 04-17-2022 Albumin [Mass/Vol] 3.7 g/dL 3.2-5.0 [facility] Work Phone: Serum or plasma albumin/glob ulin mass ratioon 04-17-2022 Albumin/Globulin [Mass ratio] 1.2 {ratio} 0.9-2.4 [facility] Work Phone: Serum or plasma calcium phillip urement (mass/volume)on 04-17-2022 Calcium [Mass/Vol] 9.3 mg/dL 8.5-10.1 [facility] Work Phone: Serum or plasma cholesterol in HDL measurement (mass/volume)on 04-17-2022 Cholesterol in HDL [Mass/Vol] 45 mg/dL >40 [facility] Work Phone: Comment on above: The drugs N-Acetylcy steine and Metamizole may falsely depress this assay. Reference Range HDL <40 mg/dL Low HDL Cholesterol HDL >or= 60 mg/dL High HDL Cholesterol Serum or plasma cholesterol in VLDL measurement (mass/volume)on 04-17-2022 Cholesterol in VLDL [Mass/Vol] 26 mg/dL 5-40 [facility] Work Phone: Serum or plasma creatinine m easurement (mass/volume)on 04-17-2022 Creatinine [Mass/Vol] 0.99 mg/dL 0.70-1.30 [facility] Work Phone: Comment on above: The validity of the calculated GFR & GFRAA in patients over 70 years has not been determined. Clinical correlation is essential. Serum or plasma low density lipoprotein (LDL) cholesterol measurement (mass/volume)on 04-17-2022 Cholesterol in LDL [Mass/Vol] 74 mg/dL 0-130 [facility] Work Phone: Serum or plasma urea nitroge n measurement (mass/volume)on 04-17-2022 Urea nitrogen [Mass/Vol] 15 mg/dL 7-18 [facility] Work Phone: Thin prep Papanicolaou smear with manual screeningon 04-17-2022 Thin prep Papanicolaou smear with manual screening 36 U/L 15-37 [facility] Work Phone: [phone] Thin prep Papanicolaou smear with manual screening 6 5-15 [facility] Work Phone: Absolute lymphocyte counton 01-10-2022 Lymphocytes Auto (Unsp spec) [#/Vol] 2.22 10*3/uL 0.83-4.51 [facility] Work Phone: Basophil percentageon 2021 Basophils/100 WBC (Bld) 0.7 % 0-1 [facility] Work Phone: [phone] Chloride [Moles/Vol] 109 mmol/L 98-107 [facility] Work Phone: Eosinophils/100 WBC (Bld) 3.8 % 0-5 [facility] Work Phone: Glucose [Mass/Vol] 118 mg/dL 74-106 [facility] Work Phone: Comment on above: Fasting Glucose resu lt from 100 to 125 mg/dL suggests IMPAIRED HOMEOSTASIS per A.D.A. criteria. Neutrophils (Bld) [#/Vol] 3.7 10*3/uL 2.0-7.7 [facility] Work Phone: [phone] Neutrophils/100 WBC (Bld) 54.7 % 47-70 [facility] Work Phone: [phone] Potassium [Moles/Vol] 3.7 mmol/L 3.5-5.1 [facility] Work Phone: [phone] Sodium [Moles/Vol] 142 mmol/L 136-145 [facility] Work Phone: WBC (Bld) [#/Vol] 6.8 10*3/uL 4.4-11.0 [facility] Work Phone: Blood erythrocytes count (nu mber/volume)on 01-10-2022 RBC (Bld) [#/Vol] 5.04 10*6/uL 4.6-6.2 [facility] Blood hemoglobin measurement (mass/volume)on 01-10-2022 Hemoglobin (Bld) [Mass/Vol] 15.7 g/dL 13.0-16.5 [facility] Work Phone: Blood lymphocytes/100 leukoc yteson 01-10-2022 Lymphocytes/100 WBC (Bld) 32.7 % 19-41 [facility] Work Phone: Blood monocytes/100 leukocyt eson 01-10-2022 Monocytes/100 WBC (Bld) 8.0 % 0-10 [facility] Work Phone: Blood platelet mean volumeon 01-10-2022 Platelet mean volume (Bld) [Entitic vol] 10.5 fL 6.2-12.0 [facility] Work Phone: Determination of erythrocyte mean corpuscular volume (MCV)on 01-10-2022 MCV (RBC) [Entitic vol] 91.9 fL 80-94 [facility] Work Phone: Hematocrit Auto (Bld) [Volum e fraction]on 01-10-2022 Hematocrit (Bld) [Volume fraction] 46.3 % 40-54 [facility] Work Phone: Laboratory - Chemistry and C hemistry - challengeon 01-10-2022 CO2 [Moles/Vol] 26.0 mmol/L 21.0-32.0 [facility] Work Phone: Urea nitrogen/Creatinine [Mass ratio] 16.7 mg/mg 10-20 [facility] Work Phone: Laboratory - Hematology and Cell countson 01-10-2022 Erythrocyte distribution width (RBC) [Entitic vol] 43.2 fL 35.1-43.9 [facility] Work Phone: Erythrocyte distribution width (RBC) [Ratio] 13.0 % 11.6-14.6 [facility] Work Phone: Immature granulocytes/100 WBC (Bld) 0.100 % 0.0-0.9 [facility] Work Phone: Comment on above: IG% - Immature Granu locytes (promyelocytes, myelocytes and metamyelocytes) > 1% indicates that a LEFT SHIFT is Present. MCH (RBC) [Entitic mass] 31.2 pg 27.0-32.0 [facility] Work Phone: Nucleated RBC/100 WBC (Bld) [Ratio] 0 % 0-5 [facility] Work Phone: MCHC Auto (RBC) [Mass/Vol]on 01-10-2022 MCHC (RBC) [Mass/Vol] 33.9 g/dL 32-36 [facility] Work Phone: No Panel Informationon 01-10 Estimated Creatinine Clearance Calc 65.86 ml/min [facility] Work Phone: Estimated GFR (MDRD) Amer 86 mL/min >60 [facility] Work Phone: Comment on above: GFR Calc Estimated GFR (MDRD) Non-Af Amer 71 mL/min >60 [facility] Work Phone: Comment on above: Non- GFR Calc Troponin I High Sensitivity 12 pg/mL 3.0-78.0 [facility] Work Phone: Comment on above: Please Note: New Afsaneh t Units and Gender Specific Reference Ranges. For more information see Policy Stat Procedure Nebo High Sensitivity Troponin (TNIH) and attachments. Platelets bldon 01-10-2022 Platelets (Bld) [#/Vol] 177 10*3/uL 150-450 [facility] Work Phone: Serum or plasma calcium phillip urement (mass/volume)on 01-10-2022 Calcium [Mass/Vol] 9.1 mg/dL 8.5-10.1 [facility] Work Phone: Serum or plasma creatinine m easurement (mass/volume)on 01-10-2022 Creatinine [Mass/Vol] 1.08 mg/dL 0.70-1.30 [facility] Work Phone: Comment on above: The validity of the calculated GFR & GFRAA in patients over 70 years has not been determined. Clinical correlation is essential. Serum or plasma urea nitroge n measurement (mass/volume)on 01-10-2022 Urea nitrogen [Mass/Vol] 18 mg/dL 7-18 [facility] Work Phone: Thin prep Papanicolaou smear with manual screeningon 01-10-2022 Thin prep Papanicolaou smear with manual screening 7 5-15 [facility] Work Phone: Absolute lymphocyte counton 11-14-2021 Lymphocytes Auto (Unsp spec) [#/Vol] 2.09 10*3/uL 0.83-4.51 [facility] Work Phone: Basophil percentageon 2021 Basophils/100 WBC (Bld) 1.1 % 0-1 [facility] Work Phone: Chloride [Moles/Vol] 108 mmol/L 98-107 [facility] Work Phone: Eosinophils/100 WBC (Bld) 5.3 % 0-5 [facility] Work Phone: Glucose [Mass/Vol] 112 mg/dL 74-106 [facility] Work Phone: Comment on above: Fasting Glucose resu lt from 100 to 125 mg/dL suggests IMPAIRED HOMEOSTASIS per A.D.A. criteria. Neutrophils (Bld) [#/Vol] 3.6 10*3/uL 2.0-7.7 [facility] Work Phone: Neutrophils/100 WBC (Bld) 54.7 % 47-70 [facility] Work Phone: Potassium [Moles/Vol] 4.2 mmol/L 3.5-5.1 [facility] Work Phone: Sodium [Moles/Vol] 140 mmol/L 136-145 [facility]: WBC (Bld) [#/Vol] 6.6 10*3/uL 4.4-11.0 [facility] Work Phone: Blood erythrocytes count (nu mber/volume)on 11-14-2021 RBC (Bld) [#/Vol] 5.13 10*6/uL 4.6-6.2 [facility]: Blood hemoglobin measurement (mass/volume)on 11-14-2021 Hemoglobin (Bld) [Mass/Vol] 16.0 g/dL 13.0-16.5 [facility] Work Phone: Blood lymphocytes/100 leukoc yteson 11-14-2021 Lymphocytes/100 WBC (Bld) 31.8 % 19-41 [facility] Work Phone: [phone] Blood monocytes/100 leukocyt eson 11-14-2021 Monocytes/100 WBC (Bld) 6.8 % 0-10 [facility] Work Phone: Blood platelet mean volumeon 11-14-2021 Platelet mean volume (Bld) [Entitic vol] 10.6 fL 6.2-12.0 [facility] Work Phone: Determination of erythrocyte mean corpuscular volume (MCV)on 11-14-2021 MCV (RBC) [Entitic vol] 92.4 fL 80-94 [facility] Work Phone: Hematocrit Auto (Bld) [Volum e fraction]on 11-14-2021 Hematocrit (Bld) [Volume fraction] 47.4 % 40-54 [facility] Work Phone: INR in Blood by Coagulation assayon 11-14-2021 INR Coag (Bld) [Relative time] 1.0 {INR} [facility] Work Phone: Laboratory - Chemistry and C hemistry - challengeon 11-14-2021 CO2 [Moles/Vol] 27.0 mmol/L 21.0-32.0 [facility] Work Phone: Urea nitrogen/Creatinine [Mass ratio] 13.2 mg/mg 10-20 [facility] Work Phone: Laboratory - Coagulationon 0 11-14-2021 aPTT Coag (Bld) [Time] 27.0 s 24.1-36.2 [facility] Work Phone: PT Coag (PPP) [Time] 13.3 s 11.7-14.9 [facility] Work Phone: Laboratory - Hematology and Cell countson 11-14-2021 Erythrocyte distribution width (RBC) [Entitic vol] 44.6 fL 35.1-43.9 [facility] Work Phone: Erythrocyte distribution width (RBC) [Ratio] 13.2 % 11.6-14.6 [facility] Work Phone: Immature granulocytes/100 WBC (Bld) 0.300 % 0.0-0.9 [facility] Work Phone: Comment on above: IG% - Immature Granu locytes (promyelocytes, myelocytes and metamyelocytes) > 1% indicates that a LEFT SHIFT is Present. MCH (RBC) [Entitic mass] 31.2 pg 27.0-32.0 [facility] Work Phone: Nucleated RBC/100 WBC (Bld) [Ratio] 0 % 0-5 [facility] Work Phone: MCHC Auto (RBC) [Mass/Vol]on 11-14-2021 MCHC (RBC) [Mass/Vol] 33.8 g/dL 32-36 [facility] Work Phone: No Panel Informationon 11-14 Estimated GFR (MDRD) Amer 88 mL/min >60 [facility] Work Phone: Comment on above: GFR Calc Estimated GFR (MDRD) Non-Af Amer 73 mL/min >60 [facility] Work Phone: Comment on above: Non- GFR Calc Platelets bldon 11-14-2021 Platelets (Bld) [#/Vol] 212 10*3/uL 150-450 [facility] Work Phone: Serum or plasma calcium phillip urement (mass/volume)on 11-14-2021 Calcium [Mass/Vol] 8.8 mg/dL 8.5-10.1 [facility] Work Phone: Serum or plasma creatinine m easurement (mass/volume)on 11-14-2021 Creatinine [Mass/Vol] 1.06 mg/dL 0.70-1.30 [facility] Work Phone: Comment on above: The validity of the calculated GFR & GFRAA in patients over 70 years has not been determined. Clinical correlation is essential. Serum or plasma urea nitroge n measurement (mass/volume)on 11-14-2021 Urea nitrogen [Mass/Vol] 14 mg/dL 7-18 [facility] Work Phone: Thin prep Papanicolaou smear with manual screeningon 11-14-2021 Thin prep Papanicolaou smear with manual screening 5 5-15 [facility] Work Phone: Basophil percentageon 2021 Bilirubin [Mass/Vol] 1.30 mg/dL 0.20-1.00 [facility] Work Phone: Comment on above: For patients on eltr ombopag therapy, use of Dimension Nebo TBIL is not recommended. Cholesterol [Mass/Vol] 141 mg/dL <200 [facility] Work Phone: Comment on above: <200 mg/dL Desirable 200-240 mg/dL Borderline >240 mg/dL High Risk Protein [Mass/Vol] 7.0 g/dL 6.4-8.2 [facility] Work Phone: Triglyceride [Mass/Vol] 110 mg/dL <199 [facility] Work Phone: Comment on above: The drugs N-Acetylcy steine and Metamizole may falsely depress this assay.Serum Triglycerides Reference Interval Normal <150 mg/dL Borderline high 150 - 199 mg/dL High 200 - 499 mg/dL Very High > or = 500 mg/dL Direct bilirubinon 2 Bilirubin.direct [Mass/Vol] 0.32 mg/dL 0.00-0.30 [facility] Work Phone: Laboratory - Chemistry and C hemistry - challengeon 08-14-2021 ALP [Catalytic activity/Vol] 78 U/L 45-117 [facility] Work Phone: ALT [Catalytic activity/Vol] 47 U/L 16-61 [facility] Work Phone: Globulin (S) [Mass/Vol] 3.0 g/dL 2.2-4.2 [facility] Work Phone: Serum or plasma albumin phillip urement (mass/volume)on 08-14-2021 Albumin [Mass/Vol] 4.0 g/dL 3.2-5.0 [facility] Work Phone: Serum or plasma cholesterol in HDL measurement (mass/volume)on 08-14-2021 Cholesterol in HDL [Mass/Vol] 44 mg/dL >40 [facility] Work Phone: Comment on above: The drugs N-Acetylcy steine and Metamizole may falsely depress this assay. Reference Range HDL <40 mg/dL Low HDL Cholesterol HDL >or= 60 mg/dL High HDL Cholesterol Serum or plasma cholesterol in VLDL measurement (mass/volume)on 08-14-2021 Cholesterol in VLDL [Mass/Vol] 22 mg/dL 5-40 [facility] Work Phone: Serum or plasma low density lipoprotein (LDL) cholesterol measurement (mass/volume)on 08-14-2021 Cholesterol in LDL [Mass/Vol] 75 mg/dL 0-130 [facility] Work Phone: Thin prep Papanicolaou smear with manual screeningon 08-14-2021 Thin prep Papanicolaou smear with manual screening 36 U/L 15-37 [facility] Work Phone: Clinical Summary: HMSYousuf IDon 03-25-2019 OOP [facility] Work Phone: Office Visit: New Complaint, Rm: 40on 03-25-2019 NEGATED: Highlighted rowMRI (magnetic resonance imaging) history of the cervical spine on 12/14/2018 at [facility] Work Phone: NEGATED: Highlighted rowxray history of the cervical spine on 11/04/2018 at [facility] Work Phone: SURGon 04-24-2018 SURG --- Patient: ARTURO CORONADO SPECIMEN: [id number] Collection Date: 04/24/18 Received: 04/27/18 Status: DANILO Lozada Dr.: Abel Dixon MD Ph# Othr. Dr.: [facility] SURGICAL SUITESMaterial for Examination: A GIANT CELL [...] cassette A1.MICROSCOPIC DESCRIPTION One Janie stained slide examined.Intradepartmen markel consultation with Chung Frye M.D.COPIES TO: Abel Dixon MD [place] [facility] SURGICAL SUITESSigned Verified/Reviewed by THERESA LUO MD 04/30/18 This dictation was created using voice recognition software. Phonetic and/or minor grammatical errors may exist. ------[facility] NAME: DREAARTURO P Pathology and Laboratory Medicine UNIT#: [id number] LOC: [facility] Management Professor: Rosario Ennis M.D. ROOM/BED: [facility] : 49 AGE/SEX: 73/M ORD.Abel Chowdhury MD END OF REPORT Normal [facility] [place] Lab Report: Lipid Profileon 04-29-2017 Cholesterol 157 mg/dL Invalid Interpretation Code 200 [employer] Work Phone: HDL Cholesterol 47 mg/dL Invalid Interpretation Code [employer] Work Phone: LDL Cholesterol 95 mg/dL Invalid Interpretation Code 0-130 [employer] Work Phone: Triglyceride 77 mg/dL Invalid Interpretation Code [employer] Work Phone: very low density lipoproteins 15 mg/dL Invalid Interpretation Code 5-40 [employer] Work Phone: [phone] Lab Report: Liver Profileon 04-29-2017 Alanine aminotransferase (ALT) 29 U/L Invalid Interpretation Code 12-78 [employer] Work Phone: [phone] Albumin 4.1 g/dL Invalid Interpretation Code 3.4-5.0 [employer] Work Phone: [phone] Alkaline phosphatase (ALP) 70 U/L Invalid Interpretation Code 45-117 [employer] Work Phone: [phone] Aspartate aminotransferase (AST) 29 U/L Invalid Interpretation Code 15-37 [employer] Work Phone: [phone] Bilirubin (direct) 0.26 mg/dL Invalid Interpretation Code 0.00-0.30 [employer] Work Phone: [phone] Bilirubin (total) 1.10 mg/dL High 0.20-1.00 [employer] Work Phone: [phone] Globulin 3.2 g/dL Invalid Interpretation Code 2.2-4.2 [employer] Work Phone: [phone] Protein 7.3 g/dL Invalid Interpretation Code 6.4-8.2 [employer] Work Phone: [phone] Office Visit: [facility] 11-09-19 17 Documentation of current medications (procedure) Done Invalid Interpretation Code [employer] Work Phone: [phone] Fall risk assessment No Invalid Interpretation Code [employer] Work Phone: [phone] Protein mass conc Done [employer] Work Phone: [phone] Lab Report: Lipid Profileon 10-18-2016 Cholesterol 139 mg/dL Invalid Interpretation Code 200 [employer] Work Phone: [phone] HDL Cholesterol 45 mg/dL Invalid Interpretation Code [employer] Work Phone: [phone] LDL Cholesterol 77 mg/dL Invalid Interpretation Code 0-130 [employer] Work Phone: [phone] Triglyceride 87 mg/dL Invalid Interpretation Code [employer] Work Phone: [phone] very low density lipoproteins 17 mg/dL Invalid Interpretation Code 5-40 [employer] Work Phone: [phone] Lab Report: Liver Profileon 10-18-2016 Alanine aminotransferase (ALT) 30 U/L Invalid Interpretation Code 12-78 [facility] Work Phone: [phone] Albumin 3.9 g/dL Invalid Interpretation Code 3.4-5.0 [facility] Work Phone: [phone] Alkaline phosphatase (ALP) 82 U/L Invalid Interpretation Code 45-117 [facility] Work Phone: [phone] ALP enzyme act/vol (Bld) 82 U/L 45-117 [facility] Work Phone: [phone] Aspartate aminotransferase (AST) 28 U/L Invalid Interpretation Code 15-37 [facility] Work Phone: [phone] Bilirubin (direct) 0.26 mg/dL Invalid Interpretation Code 0.00-0.30 [facility] [employer] Work Phone: [phone] Bilirubin (total) 1.10 mg/dL High 0.20-1.00 [facility] Work Phone: [phone] Globulin 3.1 g/dL Invalid Interpretation Code 2.3-3.5 [facility] [employer] Work Phone: [phone] Globulin mass conc (S) 3.1 g/dL 2.3-3.5 [facility] Work Phone: [phone] Protein 7.0 g/dL Invalid Interpretation Code 6.4-8.2 [facility] Work Phone: [phone] Lab Report: Lipid Profileon 04-11-2016 Cholesterol 144 mg/dL Invalid Interpretation Code 200 [facility] Work Phone: [phone] HDL Cholesterol 43 mg/dL Invalid Interpretation Code [facility] Work Phone: [phone] LDL Cholesterol 82 mg/dL Invalid Interpretation Code 0-130 [facility] Work Phone: [phone] Triglyceride 93 mg/dL Invalid Interpretation Code [facility] Work Phone: [phone] very low density lipoproteins 19 mg/dL Invalid Interpretation Code 5-40 [facility] Work Phone: [phone] Lab Report: Liver Profileon 04-11-2016 Alanine aminotransferase (ALT) 36 U/L Invalid Interpretation Code 12-78 [facility] Work Phone: [phone] Albumin 3.8 g/dL Invalid Interpretation Code 3.4-5.0 [facility] Work Phone: [phone] Alkaline phosphatase (ALP) 73 U/L Invalid Interpretation Code 45-117 [facility] Work Phone: [phone] Aspartate aminotransferase (AST) 32 U/L Invalid Interpretation Code 15-37 [facility] Work Phone: [phone] Bilirubin (direct) 0.23 mg/dL Invalid Interpretation Code 0.00-0.30 [facility] Work Phone: [phone] Bilirubin (total) 1.20 mg/dL High 0.20-1.00 [facility] Work Phone: [phone] Globulin 3.1 g/dL Invalid Interpretation Code 2.3-3.5 [facility] Work Phone: [phone] Protein 6.9 g/dL Invalid Interpretation Code 6.4-8.2 [facility] Work Phone: [phone] Office Visiton 10-24-2015 Documentation of current medications (procedure) Done Invalid Interpretation Code [facility] Work Phone: [phone] Protein mass conc Done [facility] Work Phone: 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 Left ventricular Ejection fraction 59 % Invalid Interpretation Code [facility] Work Phone: [phone] Office Visiton 04-21-2015 Tobacco smoking status NHIS Tobacco smoking status NHIS Invalid Interpretation Code [facility] Work Phone: Tobacco smoking status NHIS Former smoker [facility] Work Phone: Tobacco use HS Former smoker Invalid Interpretation Code [facility] Work Phone: [phone] Replaced Document: Midmark E CG Observationson 04-21-2015 EKG QRS axis 63 deg [facility] Work Phone: [phone] electrocardiogram interpretation Sinus Bradycardia WITHIN NORMAL LIMITS Invalid Interpretation Code [facility] Work Phone: [phone] GE use only - for [employer] import when terms are not otherwise specified 405 ms Invalid Interpretation Code [facility] Work Phone: [phone] Interpretation Sinus Bradycardia WITHIN NORMAL LIMITS [facility] Work Phone: [phone] P [place] 66 deg [facility] Work Phone: [phone] P wave axis, electrocardiogram 66 deg Invalid Interpretation Code [facility] Work Phone: [phone] UT Interval 202 ms [facility] Work Phone: [phone] UT interval, electrocardiogram 202 ms Invalid Interpretation Code [facility] Work Phone: [phone] Pulse (Heart Rate) 56 /min Invalid Interpretation Code [facility] Work Phone: [phone] QRS axis, electrocardiogram 63 deg Invalid Interpretation Code [facility] Work Phone: [phone] QRS Duration 94 ms [facility] Work Phone: [phone] QRS duration, electrocardiogram 94 ms Invalid Interpretation Code [facility] Work Phone: [phone] QT Interval new path ms [facility] Work Phone: [phone] QT interval, electrocardiogram new path ms Invalid Interpretation Code [facility] Work Phone: [phone] QTc Nava 405 ms [facility] Work Phone: [phone] T [place] 55 deg [facility] Work Phone: [phone] T wave axis, electrocardiogram 55 deg Invalid Interpretation Code [facility] Work Phone: [phone] Office Visiton 04-05-2014 cardiac risk group C Invalid Interpretation Code [facility] Work Phone: [phone] General cardiovascular disease 10Y risk [#] Vinson.D'Agostino N/A Invalid Interpretation Code [facility] Work Phone: [phone] Lab Report: TSHon 03-26-2014 Thyroid stimulating hormone (TSH) 1.47 u[iU]/mL Normal 0.358-3.74 [facility] Work Phone: [phone] 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 Calcium 8.8 mg/dL Invalid Interpretation Code [facility] Work Phone: [phone] Chloride 107 mmol/L Invalid Interpretation Code [facility] Work Phone: [phone] CO2 26.0 mmol/L Invalid Interpretation Code [facility] Work Phone: [phone] CO2 ppres (BldV) 26.0 mmol/L [facility] Work Phone: [phone] Creatinine 1.0 mg/dL Invalid Interpretation Code [facility] Work Phone: [phone] Hematocrit (HCT) 44.4 % Invalid Interpretation Code [facility] Work Phone: [phone] Hematocrit Volume Fraction (Bld) 44.4 % [facility] Work Phone: [phone] Hemoglobin (HGB) 15.3 g/dL Invalid Interpretation Code [facility] Work Phone: [phone] Platelets 186 10*3/mm3 Invalid Interpretation Code [facility] Work Phone: [phone] Platelets #/vol (Bld) 186 10*3/mm3 [facility] Work Phone: [phone] Potassium 4.1 mmol/L Invalid Interpretation Code [facility] Work Phone: [phone] Sodium 139 mmol/L Invalid Interpretation Code [facility] Work Phone: [phone] Urea nitrogen 17 mg/dL Invalid Interpretation Code [facility] Work Phone: [phone] WBC #/vol (Bld) 7.5 10*3/uL [facility] Work Phone: [phone] WBC (Leukocytes) 7.5 10*3/uL Invalid Interpretation Code [facility] Work Phone: [phone] Replaced Document: BMPon Glucose 90 mg/dL Normal 70-110 [facility] Work Phone: [phone] Glucose mass conc 90 mg/dL Normal 70-110 [facility] Work Phone: [phone] Lab Report: CBCon 03-23-2013 Erythrocytes (RBC) 4.77 10*6/uL Normal 4.6-6.2 [facility] Work Phone: [phone] RBC #/vol (Bld) 4.77 10*6/uL Normal 4.6-6.2 [facility] Work Phone: [phone] Lab Report: PTon 03-23-2013 INR Coag RelTime (PPP) 1.0 {INR} Normal [facility] Work Phone: [phone] INR in blood by coagulation 1.0 {INR} Normal [facility] Work Phone: [phone] prothrombin time, actual/normal, ratio 12.8 SECONDS Normal 11.9-14.4 [facility] Work Phone: [phone] PTP 12.8 SECONDS Normal 11.9-14.4 [facility] Work Phone: [phone] Replaced Document: Midmark E CG Observationson 01-02-2012 Pulse (Heart Rate) 423 ms Invalid Interpretation Code [facility] Work Phone: [phone] 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 06-23-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 Anion gap 10 mmol/L Invalid Interpretation Code [facility] Work Phone: [phone] Anion gap molar conc 10 mmol/L [facility] Work Phone: [phone] BUN/Creatinine Ratio 15 mg/mg Invalid Interpretation Code [facility] Work Phone: [phone] MCH 31.8 pg Invalid Interpretation Code [facility] Work Phone: MCH Entitic mass (RBC) 31.8 pg [facility] Work Phone: [phone] MCV 92.2 fL Invalid Interpretation Code [facility] Work Phone: [phone] MCV Entitic volume (RBC) 92.2 fL [facility] Work Phone: [phone] Vital Signs Date Time Vital Sign Value Performing Clinician Facility 01-16-2025 15:01-0400 Body temperature 98.2 [degF] Dr. Gauri Vila DO Work Phone: [facility] 01-16-2025 15:01-0400 Diastolic blood pressure 84 mm[Hg] Dr. Gauri Vila DO Work Phone: [facility] 01-16-2025 15:01-0400 Heart rate 65 /min Dr. Gauri Vila DO Work Phone: [facility] 01-16-2025 15:01-0400 Respiratory rate 16 /min Dr. Gauri Vila DO Work Phone: [facility] 01-16-2025 15:01-0400 SaO2% (BldA) [Mass fraction] 97 % Dr. Gauri Vila DO Work Phone: [facility] 01-16-2025 15:01-0400 Systolic blood pressure 139 mm[Hg] Dr. Gauri Vila DO Work Phone: [facility] 01-14-2025 19:22-0400 Body height 180.[address] Gauri Vila DO Work Phone: [facility] 01-14-2025 19:22-0400 Body mass index (BMI) [Ratio] 24.3 kg/m2 Dr. Gauri Vila DO Work Phone: [facility] 01-14-2025 19:22-0400 Body weight 78.[address] Gauri Vila DO Work Phone: [facility] 01-14-2025 16:35-0400 Body temperature 98.3 [degF] Dr. Gauri Vila DO Work Phone: [facility] 01-14-2025 16:35-0400 Diastolic blood pressure 70 mm[Hg] Dr. Gauri Vila DO Work Phone: [facility] 01-14-2025 16:35-0400 Heart rate 88 /min Dr. Gauri Vila DO Work Phone: [facility] 01-14-2025 16:35-0400 Respiratory rate 16 /min Dr. Gauri Vila DO Work Phone: [facility] 01-14-2025 16:35-0400 SaO2% (BldA) [Mass fraction] 98 % Dr. Gauri Vila DO Work Phone: [facility] 01-14-2025 16:35-0400 Systolic blood pressure 138 mm[Hg] Dr. Gauri Vila DO Work Phone: [facility] 01-14-2025 14:04-0400 Body height 180.[address] Gauri Vila DO Work Phone: [facility] 01-13-2025 00:12-0400 Body temperature 98.6 [degF] Dr. Gauri Vila DO Work Phone: [facility] 01-13-2025 00:12-0400 Diastolic blood pressure 80 mm[Hg] Dr. Gauri Vila DO Work Phone: [facility] 01-13-2025 00:12-0400 Heart rate 70 /min Dr. Gauri Vila DO Work Phone: [facility] 01-13-2025 00:12-0400 Respiratory rate 18 /min Dr. Gauri Vila DO Work Phone: [facility] 01-13-2025 00:12-0400 SaO2% (BldA) [Mass fraction] 99 % Dr. Gauri Vila DO Work Phone: [facility] 01-13-2025 00:12-0400 Systolic blood pressure 145 mm[Hg] Dr. Gauri Vila DO Work Phone: [facility] 01-12-2025 21:06-0400 Body height 180.[address] Gauri Vila DO Work Phone: [facility] 01-12-2025 21:06-0400 Body mass index (BMI) [Ratio] 25.2 kg/m2 Dr. Gauri Vila DO Work Phone: [facility] 01-12-2025 21:06-0400 Body weight 82.[address] Gauri Vila DO Work Phone: [facility] 11-10-2024 14:58-0400 Body height 180.[address] Gauri Vila DO Work Phone: [facility] 11-10-2024 14:58-0400 Body mass index (BMI) [Ratio] 24.3 kg/m2 Dr. Gauri Vila DO Work Phone: [facility] 11-10-2024 14:58-0400 Body weight 78.[address] Gauri Vila DO Work Phone: [facility] 11-10-2024 14:58-0400 Diastolic blood pressure 75 mm[Hg] Dr. Gauri Vila DO Work Phone: [facility] 11-10-2024 14:58-0400 Heart rate 55 /min Dr. Gauri Vila DO Work Phone: [facility] 11-10-2024 14:58-0400 Respiratory rate 16 /min Dr. Gauri Vila DO Work Phone: [facility] 11-10-2024 14:58-0400 Systolic blood pressure 123 mm[Hg] Dr. Gauri Vila DO Work Phone: [facility] 10-25-2024 13:37-0400 Body height 180.[address] Gauri Vila DO Work Phone: [facility] 10-25-2024 13:37-0400 Body mass index (BMI) [Ratio] 24.4 kg/m2 Dr. Gauri Vila DO Work Phone: [facility] 10-25-2024 13:37-0400 Body weight 79.[address] Gauri Vila DO Work Phone: [facility] 10-12-2024 14:20-0400 Body height 180.[address] Gauri Vila DO Work Phone: [facility] 10-12-2024 14:20-0400 Body mass index (BMI) [Ratio] 24.5 kg/m2 Dr. Gauri Vila DO Work Phone: [facility] 10-12-2024 14:20-0400 Body weight [address] Gauri Vila DO Work Phone: [facility] 09-01-2024 11:08-0400 Body mass index (BMI) [Ratio] 25.1 kg/m2 Dr. Gauri Vila DO Work Phone: [facility] 09-01-2024 11:08-0400 Body temperature 98.2 [degF] Dr. Gauri Vila DO Work Phone: [facility] 09-01-2024 11:08-0400 Body weight 81.[address] Gauri Vila DO Work Phone: [facility] 09-01-2024 11:08-0400 Diastolic blood pressure 66 mm[Hg] Dr. Gauri Vila DO Work Phone: [facility] 09-01-2024 11:08-0400 Heart rate 58 /min Dr. Gauri Vila DO Work Phone: [facility] 09-01-2024 11:08-0400 Respiratory rate 18 /min Dr. Gauri Vila DO Work Phone: [facility] 09-01-2024 11:08-0400 SaO2% (BldA) [Mass fraction] 96 % Dr. Gauri Vila DO Work Phone: [facility] 09-01-2024 11:08-0400 Systolic blood pressure 118 mm[Hg] Dr. Gauri Vila DO Work Phone: [facility] 07-21-2024 15:27-0400 Body height 180.[address] Gauri Vila DO Work Phone: [facility] 07-21-2024 15:27-0400 Body mass index (BMI) [Ratio] 24.5 kg/m2 Dr. Gauri Vila DO Work Phone: [facility] 07-21-2024 15:27-0400 Body temperature 98.2 [degF] Dr. Gauri Vila DO Work Phone: [facility] 07-21-2024 15:27-0400 Body weight 79.[address] Gauri Vila DO Work Phone: [facility] 07-21-2024 15:27-0400 Diastolic blood pressure 78 mm[Hg] Dr. Gauri Vila DO Work Phone: [facility] 07-21-2024 15:27-0400 Heart rate 67 /min Dr. Gauri Vila DO Work Phone: [facility] 07-21-2024 15:27-0400 Respiratory rate 18 /min Dr. Gauri Vila DO Work Phone: [facility] 07-21-2024 15:27-0400 SaO2% (BldA) [Mass fraction] 97 % Dr. Gauri Vila DO Work Phone: [facility] 07-21-2024 15:27-0400 Systolic blood pressure 142 mm[Hg] Dr. Gauri Vila DO Work Phone: [facility] 07-07-2024 08:53-0500 Body mass index (BMI) [Ratio] 25.1 kg/m2 Dr. Gauri Vila DO Work Phone: [facility] 07-07-2024 08:53-0500 Body weight 81.[address] Gauri Vila DO Work Phone: [facility] 07-07-2024 08:53-0500 Diastolic blood pressure 78 mm[Hg] Dr. Gauri Vila DO Work Phone: [facility] 07-07-2024 08:53-0500 Heart rate 61 /min Dr. Gauri Vila DO Work Phone: [facility] 07-07-2024 08:53-0500 Respiratory rate 18 /min Dr. Gauri Vila DO Work Phone: [facility] 07-07-2024 08:53-0500 SaO2% (BldA) [Mass fraction] 94 % Dr. Gauri Vila DO Work Phone: [facility] 07-07-2024 08:53-0500 Systolic blood pressure 125 mm[Hg] Dr. Gauri Vila DO Work Phone: [facility] 04-14-2024 16:23-0500 Body height 180.[address] Gauri Vila DO Work Phone: [facility] 04-14-2024 16:23-0500 Body mass index (BMI) [Ratio] 25.1 kg/m2 Dr. Gauri Vila DO Work Phone: [facility] 04-14-2024 16:23-0500 Body temperature 97.3 [degF] Dr. Gauri Vila DO Work Phone: [facility] 04-14-2024 16:23-0500 Body weight 81.[address] Gauri Vila DO Work Phone: [facility] 04-14-2024 16:23-0500 Diastolic blood pressure 70 mm[Hg] Dr. Gauri Vila DO Work Phone: [facility] 04-14-2024 16:23-0500 Heart rate 71 /min Dr. Gauri Vila DO Work Phone: [facility] 04-14-2024 16:23-0500 Respiratory rate 16 /min Dr. Gauri Vila DO Work Phone: [facility] 04-14-2024 16:23-0500 Systolic blood pressure 118 mm[Hg] Dr. Gauri Vila DO Work Phone: [facility] 04-03-2024 13:28-0500 Body temperature 97.9 [degF] Dr. Gauri Vila DO Work Phone: [facility] 04-03-2024 13:28-0500 Diastolic blood pressure 81 mm[Hg] Dr. Gauri Vila DO Work Phone: [facility] 04-03-2024 13:28-0500 Heart rate 78 /min Dr. Gauri Vila DO Work Phone: [facility] 04-03-2024 13:28-0500 Respiratory rate 16 /min Dr. Gauri Vila DO Work Phone: [facility] 04-03-2024 13:28-0500 SaO2% (BldA) [Mass fraction] 99 % Dr. Gauri Vila DO Work Phone: [facility] 04-03-2024 13:28-0500 Systolic blood pressure 139 mm[Hg] Dr. Gauri Vila DO Work Phone: [facility] 04-03-2024 10:15-0500 Body mass index (BMI) [Ratio] 26.1 kg/m2 Dr. Gauri Vila DO Work Phone: [facility] 04-03-2024 10:15-0500 Body weight 84.[address] Gauri Vila DO Work Phone: [facility] 04-03-2024 09:46-0500 Body temperature 97.5 [degF] Mandy Athy PA-C Work Phone: [facility] 04-03-2024 09:46-0500 Body weight 81 kg Mandy Athy PA-C Work Phone: [facility] 04-03-2024 09:46-0500 Diastolic blood pressure 80 mm[Hg] Mandy Athy PA-C Work Phone: [facility] 04-03-2024 09:46-0500 Heart rate 67 /min Mandy Athy PA-C Work Phone: [facility] 04-03-2024 09:46-0500 Respiratory rate 20 /min Mandy Athy PA-C Work Phone: [facility] 04-03-2024 09:46-0500 SaO2% (BldA) [Mass fraction] 98 % Mandy Lazaro PA-C Work Phone: [facility] 04-03-2024 09:46-0500 Systolic blood pressure 110 mm[Hg] Mandy Lazaro PA-C Work Phone: [facility] 07-15-2023 14:00-0400 Diastolic blood pressure 96 mm[Hg] Bib Haque MD Work Phone: [facility] 07-15-2023 14:00-0400 Heart rate 54 /min Bib Haque MD Work Phone: [facility] 07-15-2023 14:00-0400 Systolic blood pressure 167 mm[Hg] Bib Haque MD Work Phone: [facility] 07-15-2023 13:47-0400 Body mass index (BMI) [Ratio] 24.13 kg/m2 Bib Haque MD Work Phone: [facility] 07-15-2023 13:47-0400 Body weight 78.47 kg Bib Haque MD Work Phone: [facility] 07-04-2023 13:44-0500 Body height 180.[address] Gauri Vila Work Phone: [facility] 07-04-2023 13:44-0500 Body mass index (BMI) [Ratio] 24 kg/m2 Dr. Gauri Vila Work Phone: [facility] 07-04-2023 13:44-0500 Body weight 78.[address] Gauri Vila Work Phone: [facility] 07-04-2023 13:44-0500 Diastolic blood pressure 97 mm[Hg] Dr. Gauri Vila Work Phone: [facility] 07-04-2023 13:44-0500 Heart rate 55 /min Dr. Gauri Vila Work Phone: [facility] 07-04-2023 13:44-0500 Respiratory rate 16 /min Dr. Gauri Vila Work Phone: [facility] 07-04-2023 13:44-0500 Systolic blood pressure 160 mm[Hg] Dr. Gauri Vila Work Phone: [facility] 05-12-2023 15:13-0500 Body temperature 97.8 [degF] Dr. Gauri Vila Work Phone: [facility] 05-12-2023 15:13-0500 Diastolic blood pressure 90 mm[Hg] Dr. Gauri Vila Work Phone: [facility] 05-12-2023 15:13-0500 Heart rate 65 /min Dr. Gauri Vila Work Phone: [facility] 05-12-2023 15:13-0500 Respiratory rate 12 /min Dr. aGuri Vila Work Phone: [facility] 05-12-2023 15:13-0500 SaO2% (BldA) [Mass fraction] 97 % Dr. Gauri Vila Work Phone: [facility] 05-12-2023 15:13-0500 Systolic blood pressure 146 mm[Hg] Dr. Gauri Vila Work Phone: [facility] 05-07-2023 11:21-0500 Body height 180.[address] Gauri Vila Work Phone: [facility] 05-07-2023 11:21-0500 Body mass index (BMI) [Ratio] 24.3 kg/m2 Dr. Gauri Vila Work Phone: [facility] 05-07-2023 11:21-0500 Body temperature 98.1 [degF] Dr. Gauri Vila Work Phone: [facility] 05-07-2023 11:21-0500 Body weight 78.[address] Gauri Vila Work Phone: [facility] 05-07-2023 11:21-0500 Diastolic blood pressure 86 mm[Hg] Dr. Gauri Vila Work Phone: [facility] 05-07-2023 11:21-0500 Heart rate 59 /min Dr. Gauri Vila Work Phone: [facility] 05-07-2023 11:21-0500 SaO2% (BldA) [Mass fraction] 98 % Dr. Gauri Vila Work Phone: [facility] 05-07-2023 11:21-0500 Systolic blood pressure 164 mm[Hg] Dr. Gauri Vila Work Phone: [facility] 04-24-2023 13:57-0500 Body mass index (BMI) [Ratio] 24.1 kg/m2 Dr. Gauri Vila Work Phone: [facility] 04-24-2023 13:57-0500 Body temperature 99.8 [degF] Dr. Gauri Vila Work Phone: [facility] 04-24-2023 13:57-0500 Body weight 78.[address] Gauri Vila Work Phone: [facility] 04-24-2023 13:57-0500 Diastolic blood pressure 81 mm[Hg] Dr. Gauri Vila Work Phone: [facility] 04-24-2023 13:57-0500 Heart rate 75 /min Dr. Gauri Vila Work Phone: [facility] 04-24-2023 13:57-0500 Respiratory rate 16 /min Dr. Gauri Vila Work Phone: [facility] 04-24-2023 13:57-0500 SaO2% (BldA) [Mass fraction] 94 % Dr. Gauri Vila Work Phone: [facility] 04-24-2023 13:57-0500 Systolic blood pressure 145 mm[Hg] Dr. Gauri Vila Work Phone: [facility] 01-28-2023 14:07-0400 Body mass index (BMI) [Ratio] 23.7 kg/m2 Dr. Gauri Vila Work Phone: [facility] 01-28-2023 14:07-0400 Body temperature 98.2 [degF] Dr. Gauri Vila Work Phone: [facility] 01-28-2023 14:07-0400 Body weight 77.[address] Gauri Vila Work Phone: [facility] 01-28-2023 14:07-0400 Diastolic blood pressure 90 mm[Hg] Dr. Gauri Vila Work Phone: [facility] 01-28-2023 14:07-0400 Heart rate 56 /min Dr. Gauri Vila Work Phone: [facility] 01-28-2023 14:07-0400 Respiratory rate 16 /min Dr. Gauri Vila Work Phone: [facility] 01-28-2023 14:07-0400 SaO2% (BldA) [Mass fraction] 98 % Dr. Gauri Vlia Work Phone: [facility] 01-28-2023 14:07-0400 Systolic blood pressure 142 mm[Hg] Dr. Gauri Vila Work Phone: [facility] 09-20-2022 15:06-0400 Diastolic blood pressure 89 mm[Hg] [facility] 09-20-2022 15:06-0400 Heart rate 56 /min [facility] 09-20-2022 15:06-0400 Respiratory rate 16 /min [facility] 09-20-2022 15:06-0400 SaO2% (BldA) [Mass fraction] 98 % [facility] 09-20-2022 15:06-0400 Systolic blood pressure 157 mm[Hg] [facility] 09-20-2022 13:06-0400 Body height 180.34 cm [facility] 09-20-2022 13:06-0400 Body mass index (BMI) [Ratio] 24.7 kg/m2 [facility] 09-20-2022 13:06-0400 Body temperature 98.4 [degF] [facility] 09-20-2022 13:06-0400 Body weight 80.54 kg [facility] 04-10-2022 15:28-0500 Body height 182.[address] Gauri Vila Work Phone: [facility] Work Phone: 04-10-2022 15:28-0500 Body mass index (BMI) [Ratio] 24 kg/m2 Dr. Gauri Vila Work Phone: [facility] Work Phone: 04-10-2022 15:28-0500 Body temperature 97.2 [degF] Dr. Gauri Vila Work Phone: [facility] Work Phone: 04-10-2022 15:28-0500 Body weight 80.[address] Gauri Vila Work Phone: [facility] Work Phone: 04-10-2022 15:28-0500 Diastolic blood pressure 82 mm[Hg] Dr. Gauri Vila Work Phone: [facility] Work Phone: 04-10-2022 15:28-0500 Heart rate 59 /min Dr. Gauri Vila Work Phone: [facility] Work Phone: 04-10-2022 15:28-0500 Respiratory rate 14 /min Dr. Gauri Vila Work Phone: [facility] Work Phone: 04-10-2022 15:28-0500 SaO2% (BldA) [Mass fraction] 97 % Dr. Gauri Vila Work Phone: [facility] Work Phone: 04-10-2022 15:28-0500 Systolic blood pressure 140 mm[Hg] Dr. Gauri Vila Work Phone: [facility] Work Phone: 04-08-2022 15:20-0500 Body temperature 98.8 [degF] Dr. Gauri Vila Work Phone: [facility] Work Phone: 04-08-2022 15:20-0500 Diastolic blood pressure 80 mm[Hg] Dr. Gauri Vila Work Phone: [facility] Work Phone: 04-08-2022 15:20-0500 Heart rate 61 /min Dr. Gauri Vila Work Phone: [facility] Work Phone: 04-08-2022 15:20-0500 Respiratory rate 14 /min Dr. Gauri Vila Work Phone: [facility] Work Phone: 04-08-2022 15:20-0500 SaO2% (BldA) [Mass fraction] 98 % Dr. Gauri Vila Work Phone: [facility] Work Phone: 04-08-2022 15:20-0500 Systolic blood pressure 134 mm[Hg] Dr. Gauri Vila Work Phone: [facility] Work Phone: 01-22-2022 15:41-0400 Body mass index (BMI) [Ratio] 23.8 kg/m2 Dr. Gauri Vila Work Phone: [facility] Work Phone: 01-22-2022 15:41-0400 Body temperature 97.9 [degF] Dr. Gauri Vila Work Phone: [facility] Work Phone: 01-22-2022 15:41-0400 Body weight 79.[address] Gauri Vila Work Phone: [facility] Work Phone: 01-22-2022 15:41-0400 Diastolic blood pressure 78 mm[Hg] Dr. Gauri Vila Work Phone: [facility] Work Phone: 01-22-2022 15:41-0400 Heart rate 66 /min Dr. Gauri Vila Work Phone: [facility] Work Phone: 01-22-2022 15:41-0400 Respiratory rate 16 /min Dr. Gauri Vila Work Phone: [facility] Work Phone: 01-22-2022 15:41-0400 SaO2% (BldA) [Mass fraction] 97 % Dr. Gauri Vila Work Phone: [facility] Work Phone: 01-22-2022 15:41-0400 Systolic blood pressure 130 mm[Hg] Dr. Gauri Vila Work Phone: [facility] Work Phone: 01-10-2022 02:35-0400 Diastolic blood pressure 81 mm[Hg] Dr. Gauri Vila Work Phone: [facility] Work Phone: 01-10-2022 02:35-0400 Heart rate 61 /min Dr. Gauri Vila Work Phone: [facility] Work Phone: 01-10-2022 02:35-0400 Respiratory rate 15 /min Dr. Gauri Vila Work Phone: [facility] Work Phone: 01-10-2022 02:35-0400 SaO2% (BldA) [Mass fraction] 97 % Dr. Gauri Vila Work Phone: [facility] Work Phone: 01-10-2022 02:35-0400 Systolic blood pressure 143 mm[Hg] Dr. Gauri Vila Work Phone: [facility] Work Phone: 01-09-2022 23:59-0400 Body height 182.[address] Gauri Vila Work Phone: [facility] Work Phone: 01-09-2022 23:59-0400 Body mass index (BMI) [Ratio] 23.7 kg/m2 Dr. Gauri Vila Work Phone: [facility] Work Phone: 01-09-2022 23:59-0400 Body temperature 98.3 [degF] Dr. Gauri Vila Work Phone: [facility] Work Phone: 01-09-2022 23:59-0400 Body weight 79.[address] Gauri Vila Work Phone: [facility] Work Phone: 12-10-2021 13:08-0400 Body height 182.[address] Gauri Vila Work Phone: [facility] Work Phone: 12-10-2021 13:08-0400 Body mass index (BMI) [Ratio] 23.5 kg/m2 Dr. Gauri Vila Work Phone: [facility] Work Phone: 12-10-2021 13:08-0400 Body temperature 98.1 [degF] Dr. Gauri Vila Work Phone: [facility] Work Phone: 12-10-2021 13:08-0400 Body weight 78.[address] Gauri Vila Work Phone: [facility] Work Phone: 12-10-2021 13:08-0400 Diastolic blood pressure 75 mm[Hg] Dr. Gauri Vila Work Phone: [facility] Work Phone: 12-10-2021 13:08-0400 Heart rate 58 /min Dr. Gauri Vila Work Phone: [facility] Work Phone: 12-10-2021 13:08-0400 Respiratory rate 17 /min Dr. Gauri Vila Work Phone: [facility] Work Phone: 12-10-2021 13:08-0400 SaO2% (BldA) [Mass fraction] 97 % Dr. Gauri Vila Work Phone: [facility] Work Phone: 12-10-2021 13:08-0400 Systolic blood pressure 146 mm[Hg] Dr. Gauri Vila Work Phone: [facility] Work Phone: 11-30-2021 15:28-0400 Body temperature 97.6 [degF] Dr. Gauri Vila Work Phone: [facility] Work Phone: 11-30-2021 15:28-0400 Diastolic blood pressure 80 mm[Hg] Dr. Gauri Vila Work Phone: [facility] Work Phone: 11-30-2021 15:28-0400 Heart rate 75 /min Dr. Gauri Vila Work Phone: [facility] Work Phone: 11-30-2021 15:28-0400 Respiratory rate 16 /min Dr. Gauri Vila Work Phone: [facility] Work Phone: 11-30-2021 15:28-0400 SaO2% (BldA) [Mass fraction] 97 % Dr. Gauri Vila Work Phone: [facility] Work Phone: 11-30-2021 15:28-0400 Systolic blood pressure 122 mm[Hg] Dr. Gauri Vila Work Phone: [facility] Work Phone: 11-19-2021 07:45-0400 Body height 182.[address] Gauri Vila Work Phone: [facility] Work Phone: 11-19-2021 07:45-0400 Body weight 78.[address] Gauri Vila Work Phone: [facility] Work Phone: 11-16-2021 08:37-0400 Body mass index (BMI) [Ratio] 23.6 kg/m2 Dr. Gauri Vila Work Phone: [facility] Work Phone: 11-13-2021 13:56-0400 Body mass index (BMI) [Ratio] 23.6 kg/m2 Dr. Gauri Vila Work Phone: [facility] Work Phone: 11-13-2021 13:56-0400 Body weight 78.[address] Gauri Vila Work Phone: [facility] Work Phone: 10-24-2021 13:00-0400 Body mass index (BMI) [Ratio] 23.3 kg/m2 Dr. Gauri Vila Work Phone: [facility] Work Phone: 10-24-2021 13:00-0400 Body temperature 99.1 [degF] Dr. Gauri Vila Work Phone: [facility] Work Phone: 10-24-2021 13:00-0400 Body weight 78.[address] Gauri Vila Work Phone: [facility] Work Phone: 10-24-2021 13:00-0400 Diastolic blood pressure 86 mm[Hg] Dr. Gauri Vila Work Phone: [facility] Work Phone: 10-24-2021 13:00-0400 Heart rate 60 /min Dr. Gauri Vila Work Phone: [facility] Work Phone: 10-24-2021 13:00-0400 Respiratory rate 16 /min Dr. Gauri Vila Work Phone: [facility] Work Phone: 10-24-2021 13:00-0400 SaO2% (BldA) [Mass fraction] 97 % Dr. Gauri Vila Work Phone: [facility] Work Phone: 10-24-2021 13:00-0400 Systolic blood pressure 126 mm[Hg] Dr. Gauri Vila Work Phone: [facility] Work Phone: 10-17-2021 17:30-0400 Heart rate 74 /min Dr. Gauri Vila Work Phone: [facility] Work Phone: 10-17-2021 17:30-0400 Respiratory rate 17 /min Dr. Gauri Vila Work Phone: [facility] Work Phone: 10-17-2021 14:35-0400 Body height 182.[address] Gauri Vila Work Phone: [facility] Work Phone: 10-17-2021 14:35-0400 Body mass index (BMI) [Ratio] 22.8 kg/m2 Dr. Gauri Vila Work Phone: [facility] Work Phone: 10-17-2021 14:35-0400 Body temperature 97.5 [degF] Dr. Gauri Vila Work Phone: [facility] Work Phone: 10-17-2021 14:35-0400 Body weight 76.[address] Gauri Vila Work Phone: [facility] Work Phone: 10-17-2021 14:35-0400 Diastolic blood pressure 83 mm[Hg] Dr. Gauri Vila Work Phone: [facility] Work Phone: 10-17-2021 14:35-0400 Systolic blood pressure 118 mm[Hg] Dr. Gauri Vila Work Phone: [facility] Work Phone: 10-10-2021 16:29-0400 Body mass index (BMI) [Ratio] 24.4 kg/m2 Dr. Gauri Vila Work Phone: [facility] Work Phone: 10-10-2021 16:29-0400 Body temperature 97.1 [degF] Dr. Gauri Vila Work Phone: [facility] Work Phone: 10-10-2021 16:29-0400 Body weight 79.[address] Gauri Vila Work Phone: [facility] Work Phone: 10-10-2021 16:29-0400 Diastolic blood pressure 84 mm[Hg] Dr. Gauri Vila Work Phone: [facility] Work Phone: 10-10-2021 16:29-0400 Heart rate 68 /min Dr. Gauri Vila Work Phone: [facility] Work Phone: 10-10-2021 16:29-0400 Respiratory rate 14 /min Dr. Gauri Vila Work Phone: [facility] Work Phone: 10-10-2021 16:29-0400 SaO2% (BldA) [Mass fraction] 98 % Dr. Gauri Vila Work Phone: [facility] Work Phone: 10-10-2021 16:29-0400 Systolic blood pressure 146 mm[Hg] Dr. Gauri Vila Work Phone: [facility] Work Phone: 08-14-2021 13:20-0400 Body mass index (BMI) [Ratio] 24.3 kg/m2 Dr. Gauri Vila Work Phone: [facility] Work Phone: 08-14-2021 13:20-0400 Body weight 78.[address] Gauri Vila Work Phone: [facility] Work Phone: 08-14-2021 13:20-0400 Diastolic blood pressure 77 mm[Hg] Dr. Gauri Vila Work Phone: [facility] Work Phone: 08-14-2021 13:20-0400 Heart rate 59 /min Dr. Gauri Vila Work Phone: [facility] Work Phone: 08-14-2021 13:20-0400 Respiratory rate 18 /min Dr. Gauri Vila Work Phone: [facility] Work Phone: 08-14-2021 13:20-0400 SaO2% (BldA) [Mass fraction] 95 % Dr. Gauri Vila Work Phone: [facility] Work Phone: 08-14-2021 13:20-0400 Systolic blood pressure 129 mm[Hg] Dr. Gauri Vila Work Phone: [facility] Work Phone: 08-14-2021 13:20-0400 Body height 180.[address] Gauri Vila Work Phone: [facility] Work Phone: 08-14-2021 13:20-0400 Body mass index (BMI) [Ratio] 24.3 kg/m2 Dr. Gauri Vila Work Phone: [facility] Work Phone: 08-14-2021 13:20-0400 Body weight 78.[address] Gauri Vila Work Phone: [facility] Work Phone: 08-14-2021 13:20-0400 Diastolic blood pressure 77 mm[Hg] Dr. Gauri Vila Work Phone: [facility] Work Phone: 08-14-2021 13:20-0400 Heart rate 59 /min Dr. Gauri Vila Work Phone: [facility] Work Phone: 08-14-2021 13:20-0400 Respiratory rate 18 /min Dr. Gauri Vila Work Phone: [facility] Work Phone: 08-14-2021 13:20-0400 SaO2% (BldA) [Mass fraction] 95 % Dr. Gauri Vila Work Phone: [facility] Work Phone: 08-14-2021 13:20-0400 Systolic blood pressure 129 mm[Hg] Dr. Gauri Vila Work Phone: [facility] Work Phone: 07-03-2021 14:35-0500 Body mass index (BMI) [Ratio] 24.4 kg/m2 Dr. Gauri Vila Work Phone: [facility] Work Phone: 07-03-2021 14:35-0500 Body temperature 97.3 [degF] Dr. Gauri Vila Work Phone: [facility] Work Phone: 07-03-2021 14:35-0500 Body weight 79.[address] Gauri Vila Work Phone: [facility] Work Phone: 07-03-2021 14:35-0500 Diastolic blood pressure 72 mm[Hg] Dr. Gauri Vila Work Phone: [facility] Work Phone: 07-03-2021 14:35-0500 Heart rate 56 /min Dr. Gauri Vila Work Phone: [facility] Work Phone: 07-03-2021 14:35-0500 Respiratory rate 14 /min Dr. Gauri Vila Work Phone: [facility] Work Phone: 07-03-2021 14:35-0500 SaO2% (BldA) [Mass fraction] 98 % Dr. Gauri Vila Work Phone: [facility] Work Phone: 07-03-2021 14:35-0500 Systolic blood pressure 128 mm[Hg] Dr. Gauri Vila Work Phone: [facility] Work Phone: 07-03-2021 13:35-0500 Body mass index (BMI) [Ratio] 24.4 kg/m2 Dr. Gauri Vila Work Phone: [facility] Work Phone: 07-03-2021 13:35-0500 Body temperature 97.3 [degF] Dr. Gauri Vila Work Phone: [facility] Work Phone: 07-03-2021 13:35-0500 Body weight 79.[address] Gauri Vila Work Phone: [facility] Work Phone: 07-03-2021 13:35-0500 Diastolic blood pressure 72 mm[Hg] Dr. Gauri Vila Work Phone: [facility] Work Phone: 07-03-2021 13:35-0500 Heart rate 56 /min Dr. Gauri Vila Work Phone: [facility] Work Phone: 07-03-2021 13:35-0500 Respiratory rate 14 /min Dr. Gauri Vila Work Phone: [facility] Work Phone: 07-03-2021 13:35-0500 SaO2% (BldA) [Mass fraction] 98 % Dr. Gauri Vila Work Phone: [facility] Work Phone: 07-03-2021 13:35-0500 Systolic blood pressure 128 mm[Hg] Dr. Gauri Vila Work Phone: [facility] Work Phone: 08-23-2020 12:46-0400 Body height 180.3 cm Bib Haque MD Work Phone: [facility] 08-23-2020 12:46-0400 Body mass index (BMI) [Ratio] 25.24 kg/m2 Bib Haque MD Work Phone: [facility] 08-23-2020 12:46-0400 Body weight 82.1 kg Bib Haque MD Work Phone: [facility] 08-23-2020 12:46-0400 Diastolic blood pressure 92 mm[Hg] Bib Haque MD Work Phone: [facility] 08-23-2020 12:46-0400 Heart rate 61 /min Bib Haque MD Work Phone: [facility] 08-23-2020 12:46-0400 Systolic blood pressure 163 mm[Hg] Bib Haque MD Work Phone: [facility] 08-24-2018 13:01-0400 BMI (Body Mass Index) 24.83 kg/m2 Jacqui Olivas [facility] 08-24-2018 13:01-0400 BP Diastolic 96 mm[Hg] Jacqui Olivas [facility] 08-24-2018 13:01-0400 BP Systolic 155 mm[Hg] Jacqui Olivas [facility] 08-24-2018 13:01-0400 Height 180.3 cm Jacqui Olivas [facility] 08-24-2018 13:01-0400 Pulse (Heart Rate) 56 /min Jacqui Olivas [facility] 08-24-2018 13:01-0400 Weight 80.74 kg Jacqui Olivas [facility] 04-16-2017 10:30-0500 BMI (Body Mass Index) 23.85 kg/m2 Bib Haque [facility] Work Phone: 04-16-2017 10:30-0500 BP Diastolic 88 mm[Hg] Bib Haque [facility] Work Phone: 04-16-2017 10:30-0500 BP Systolic 118 mm[Hg] Bib Haque [facility] Work Phone: 04-16-2017 10:30-0500 Pulse (Heart Rate) 64 /min Bib Haque [facility] Work Phone: 04-16-2017 10:30-0500 Weight 77.56 kg Bib Haque [facility] Work Phone: 11-08-2016 09:16-0400 BMI (Body Mass [...] 15:09-0400 BMI (Body Mass Index) 22.92 kg/m2 [facility] Work Phone: 10-24-2015 15:09-0400 BP Diastolic 70 mm[Hg] [facility] Work Phone: 10-24-2015 15:09-0400 BP Systolic 100 mm[Hg] [facility] Work Phone: 10-24-2015 15:09-0400 BSA (Body Surface Area) 1.98 m2 [facility] Work Phone: 10-24-2015 15:09-0400 Pulse (Heart Rate) 68 /min [facility] Work Phone: 10-24-2015 15:09-0400 Respiratory Rate 20 /min [facility] Work Phone: 10-24-2015 15:09-0400 Weight 76.66 kg [facility] Work Phone: 04-21-2015 13:52-0500 Heart rate 56 /min Carmen Andrews RN [facility] Work Phone: 10-14-2013 15:14-0400 Height 182.88 cm [facility] Work Phone: 01-02-2012 16:35-0400 Heart rate 423 ms Carmen Andrews RN [facility] Work Phone: 06-13-2011 16:20-0500 BP Diastolic 70 mm[Hg] [facility] Work Phone: 06-13-2011 16:20-0500 BP Systolic 110 mm[Hg] [facility] Work Phone: NEGATED: Highlighted [id number] 13:04-0500 BMI (Body Mass Index) 25.06 kg/m2 Roxanne Gilliam AT [facility] Work Phone: NEGATED: Highlighted [id number] 13:04-0500 Body weight 81.19 kg Roxanne Gilliam AT [facility] Work Phone: NEGATED: Highlighted [id number] 13:04-0500 Body weight 81 kg Roxanne Gilliam AT [facility] Work Phone: NEGATED: Highlighted [id number] 13:04-0500 BP Diastolic 92 mm[Hg] Roxanne Gilliam AT [facility] Work Phone: NEGATED: Highlighted [id number] 13:04-0500 BP Diastolic 82 mm[Hg] Roxanne Gilliam AT [facility] Work Phone: NEGATED: Highlighted [id number] 13:04-0500 BP Systolic 156 mm[Hg] Roxanne Gilliam AT [facility] Work Phone: NEGATED: Highlighted [id number] 13:04-0500 BP Systolic 137 mm[Hg] Roxanne Gilliam AT [facility] Work Phone: NEGATED: Highlighted [id number] 13:04-0500 Height 180.34 cm Roxanne Gilliam AT [facility] Work Phone: NEGATED: Highlighted [id number] 13:04-0500 Height 180 cm Roxanne Gilliam AT [facility] Work Phone: NEGATED: Highlighted [id number] 13:04-0500 Pulse (Heart Rate) 71 /min Roxanne Gilliam AT [facility] Work Phone: Encounters Encounter Date Encounter Type Care Provider Facility Start: 02-02-2025 ambulatory Spenser Baxter lity:[facility] Start: 01-15-2025 End: 01-16-2025 Evaluation and management of inpatient Dr. Spenser Winston MD -Medical Surgical 3 Work Phone: Start: 01-14-2025 ambulatory Spenser Baxter lity:[facility] Start: 01-14-2025 Admission to [facility] Dr. Spenser Winston MD -S[facility] Day Care Start: 01-14-[address] Gauri Vila DO Work Phone: -S[facility] Day Care Start: 01-12-2025 End: 01-13-2025 Emergency department patient visit Dr. Gauri Vila DO Work Phone: -Emergency Department Work Phone: Start: 01-11-[address] Spenser Winston MD -Laboratory Work Phone: Start: 01-11-2025 ambulatory Gauri Vila [facility] y:[facility] Start: 12-31-2024 End: 12-31-[address] Gauri Vila DO Work Phone: -Laboratory Start: 12-31-2024 End: 12-31-[address] Spenser Winston MD -Laboratory Work Phone: Start: 12-31-2024 End: 12-31-2024 ambulatory Gauri Vila Facility:[facility] Start: 11-10-2024 End: 11-10-2024 Patient encounter procedure Carmen Garcia NM -[facility] Work Phone: Start: 11-10-2024 End: 11-10-[address] Gauri Vila DO Work Phone: -[facility] Start: 11-08-2024 End: 11-08-[address] Edwar Person MD -[facility] Work Phone: Start: 11-08-2024 End: 11-08-[address] Gauri Vila DO Work Phone: -[facility] Start: 11-06-2024 End: 11-06-[address] Gauri Vila DO Work Phone: -Laboratory Start: 11-06-2024 End: 11-06-2024 Patient encounter procedure Carmen CAST -Laboratory Work Phone: Start: 11-06-2024 End: 11-06-2024 ambulatory Gauri Vila Facility:[facility] Start: 11-01-2024 End: 11-01-[address] Edwar Person MD -[facility] Work Phone: Start: 11-01-2024 End: 11-01-[address] Gauri Vila DO Work Phone: -[facility] Start: 10-25-2024 End: 10-25-[address] Edwar Person MD -[facility] Work Phone: Start: 10-25-2024 End: 10-25-[address] Gauri Vila DO Work Phone: [facility] Work Phone: Start: 10-12-2024 End: 10-12-[address] Edwar Person MD -[facility] Work Phone: Start: 10-12-2024 End: 10-12-[address] Gauri Vila DO Work Phone: [facility] Work Phone: Start: 09-01-2024 End: 09-01-[address] Gauri Villa DO -[facility] Work Phone: Start: 09-01-2024 End: 09-01-2024 ambulatory Gauri Vlia Facility:[facility] Start: 08-04-2024 ambulatory Adam Maloney Facility:[facility] Start: 08-04-2024 Non-patient / Non-visit Dr. Gillian BARRETO -[facility] Start: 08-04-2024 End: 08-04-2024 Patient encounter procedure Carmen Garcia PA -Cardiovascular Services Work Phone: Start: 08-04-2024 End: 08-04-2024 ambulatory Carmen CAST Facility:[facility] Start: 07-21-2024 End: 07-21-[address] Gauri Villa DO -[facility] Work Phone: Start: 07-21-2024 End: 07-21-[address] Gauri Vila DO Work Phone: [facility] Work Phone: Start: 07-21-2024 End: 07-21-2024 ambulatory Gauri Vila Facility:[facility] Start: 07-07-2024 End: 07-07-2024 Patient encounter procedure Carmen CAST -[facility] Work Phone: Start: 07-07-2024 End: 07-07-2024 ambulatory Gauri Vila Facility:[facility] Start: 07-05-2024 End: 07-05-[address] Gauri Vila DO Work Phone: [facility] Work Phone: Start: 07-05-2024 End: 07-05-2024 Patient encounter procedure Carmen CAST -Laboratory Work Phone: Start: 07-05-2024 End: 07-05-2024 ambulatory Gauri Vila Facility:[facility] Start: 04-14-2024 End: 04-14-[address] Gauri Villa DO -[facility] Work Phone: Start: 04-14-2024 End: 04-14-2024 ambulatory Gauri Vila Facility:[facility] Start: 04-03-2024 End: 04-03-2024 Emergency department patient visit Dr. Lisa Fernandez DO -Emergency Department Work Phone: Start: 04-03-2024 End: 04-03-2024 ambulatory ROSARIO Juan NEODESHA Facility:[facility] Start: 04-03-2024 End: 04-03-2024 Patient encounter procedure Mandy PARKC Work Phone: [facility] Comment on above: Left leg pain (Prima ry Dx); History of DVT (deep vein thrombosis) Start: 03-15-2024 End: 03-15-2024 ambulatory Gauri Vila Facility:[facility] Start: 02-04-2024 End: 02-04-2024 ambulatory Gauri Vila Facility:[facility] Start: 07-15-2023 End: 07-15-2023 [facility] Start: 07-15-2023 End: 07-15-2023 Office outpatient visit 15 minutes Bib Haque MD Work Phone: [facility] Comment on above: Goiter, nontoxic, mu ltinodular (Primary Dx) Start: 07-11-2023 End: 07-11-[address] Gauri Vila Work Phone: [facility] Work Phone: Start: 07-11-2023 End: 07-11-[address] Gauri Vila Work Phone: [facility]-Laboratory Work Phone: Start: 07-10-2023 End: 07-10-[address] Gauri Vila Work Phone: [facility] Work Phone: Start: 07-10-2023 End: 07-10-[address] Gauri Vila Work Phone: [facility] Work Phone: Start: 07-08-2023 Orders Only Bib Carvajal MD Work Phone: [facility] Comment on above: Goiter, nontoxic, mu ltinodular (Primary Dx) Start: 07-04-2023 End: 07-04-[address] Gauri Vila Work Phone: [facility] Work Phone: Start: 07-02-2023 End: 07-02-[address] Gauri Vila Work Phone: [facility] Work Phone: Start: 07-02-2023 End: 07-02-[address] Gauri Vila Work Phone: [facility]-Laboratory Work Phone: Start: 05-30-2023 End: 05-30-[address] Gauri Vila Work Phone: [facility] Work Phone: Start: 05-12-2023 End: 05-12-[address] Gauri Vila Work Phone: [facility] Work Phone: Start: 05-12-2023 End: 05-12-[address] Gauri Vila Work Phone: [facility] Work Phone: Start: 05-07-2023 End: 05-07-[address] Gauri Vila Work Phone: [facility] Work Phone: Start: 04-24-2023 End: 04-24-[address] Gauri Vila Work Phone: [facility] Work Phone: Start: 01-28-2023 End: 01-28-[address] Gauri Vila Work Phone: [facility] Work Phone: Start: 11-13-2022 End: 11-13-2022 ambulatory [facility] Work Phone: Start: 11-13-2022 End: 11-13-2022 Patient encounter procedure [facility]-Laboratory Work Phone: Start: 09-20-2022 End: 09-20-2022 Emergency department patient visit [facility]-Emergency Department Work Phone: Start: 04-17-2022 End: 04-17-[address] Gauri Vila Work Phone: [facility] Work Phone: Start: 04-17-2022 End: 04-17-[address] [facility] Start: 04-10-2022 End: 04-10-[address] Gauri Vila Work Phone: [facility] Start: 04-08-2022 End: 04-08-[address] Gauri Vila Work Phone: [facility] Start: 01-22-2022 End: 01-22-[address] Gauri Vila Work Phone: [facility] Start: 01-09-2022 End: 01-10-2022 Emergency department patient [facility] Start: 12-19-2021 End: 12-19-[address] Gauri Vila Work Phone: [facility] Start: 12-10-2021 End: 12-10-[address] Gauri Vila Work Phone: [facility] Start: 11-30-2021 End: 11-30-[address] Gauri Vila Work Phone: [facility] Start: 11-19-2021 End: 11-19-2021 Admission to same day surgery center Dr. Gauri Vila Work Phone: [facility]-Manager Managed Care/Special Procedures Start: 11-14-2021 End: 11-14-[address] [facility] Start: 11-13-2021 End: 11-13-[address] Gauri Vila Work Phone: [facility] Start: 10-24-2021 End: 10-24-[address] Gauri Vila Work Phone: [facility] Start: 10-17-2021 End: 10-17-2021 Emergency department patient visit Dr. Gauri Vila Work Phone: [facility]-Emergency Department Start: 10-10-2021 End: 10-10-[address] Gauri Vila Work Phone: [facility] Start: 08-14-2021 End: 08-14-[address] Gauri Vila Work Phone: [facility]-Laboratory Start: 08-13-2021 Non-patient / Non-visit Dr. Lane Work Phone: [facility] Start: 08-13-2021 End: 08-13-[address] Gauri Vila Work Phone: [facility]-Pulmonary Services/Neurology Start: 07-03-2021 End: 07-03-[address] Gauri Vila Work Phone: [facility] Start: 08-23-2020 End: 08-23-2020 Office outpatient visit 15 minutes Bib Haque MD Work Phone: [facility] Comment on above: Nontoxic multinodula r goiter (Primary Dx) Start: 06-10-2020 End: 06-10-2020 Orders Only Jonna Mix Work Phone: [facility] Start: 05-11-2020 End: 05-11-2020 Orders Only Bib Haque MD Work Phone: [facility] Comment on above: Nontoxic multinodula r goiter (Primary Dx) Start: 08-24-2018 End: 08-24-2018 Office outpatient visit 15 minutes Jacqui Olivas Work Phone: [facility] Comment on above: Multinodular goiter (nontoxic) (Primary Dx) Start: 04-24-2018 Patient encounter procedure Abel Dixon Facility:[facility] Start: 04-16-2017 Office/outpatient visit, est, level 3 Bibmichelle Haque Work Phone: [facility] Procedures Date Procedure Procedure Detail Performing Clinician Start: 01-14-2025 Cysto,TUR,Prostate,O lym pus (Not Applicable) Dr. Gauri Vila DO Work Phone: Start: 01-14-2025 Methadone measuremen t, urine Dr. Gauri Vila DO Work Phone: Start: 01-14-2025 Urnls dip stick/tabl et reagent auto microscopy Dr. Gauri Vila DO Work Phone: Start: 01-11-[address] Jabari Vila [...] 03-25-2019 End: 03-25-2019 CERVICAL COLLAR SERPENTINE (BREG) Scot D Livingston DO Work Phone: Start: 04-21-2017 End: 04-29-2017 *Hepatic Function Panel Amanda Mcconnell Start: 04-21-2017 End: 04-29-2017 Lipid panel [AGGREGATE] Amanda Mcconnell Start: 11-08-2016 End: 11-08-2016 ERP DEVELOPER Stephen Grant SUIT ATTENDANT Work Phone: Start: 11-08-2016 End: 11-08-2016 Follow Up Appt 6 months Stephen Grant SUIT ATTENDANT Work Phone: Start: 10-11-2016 End: 10-18-2016 *Hepatic [...] 10-17-2015 End: 10-23-2015 *Hepatic Function Panel Carmen singletno PA-C Work Phone: Start: 10-17-2015 End: 10-23-2015 Lipid panel [AGGREGATE] Carmen singleton PA-C Work Phone: Start: 04-21-2015 End: 04-21-2015 Electrocardiogram, complete Adam Maloney MD Start: 04-21-2015 End: 04-21-2015 Follow Up Appt 6 months Amanda Mcconnell Start: 04-21-2015 End: 04-21-2015 VERO Maloney MD Start: 04-04-2015 End: 04-17-2015 *Hepatic Function Panel Carmen singleton PA-C Work Phone: Start: 04-04-2015 End: 04-17-2015 Lipid panel [AGGREGATE] Carmen singleton PA-C Work Phone: Start: 10-06-2014 End: 10-06-2014 ERP DEVELOPER Carmen Garcia PA-C Work Phone: Start: 10-06-2014 End: 10-07-2014 Documentation of current medications Carmen Garcia PA-C Work Phone: Start: 10-06-2014 End: 10-06-2014 Follow Up Appt 6 months Carmen singleton PA-C Work Phone: Start: 09-26-2014 End: 10-03-2014 *Hepatic Function Panel Amanda Mcconnell Start: 09-26-2014 End: 10-03-2014 Lipid panel [AGGREGATE] Amanda Mcconnell Start: 04-05-2014 End: 04-05-2014 Follow Up Appt 6 months Amanda Mcconnell Start: 04-05-2014 End: 04-05-2014 VERO Maloney MD Start: 12-03-2013 End: 03-28-2014 *Hepatic Function Panel Amanda Mcconnell Start: 12-03-2013 End: 03-28-2014 Lipid panel [AGGREGATE] Amanda Mcconnell Start: 10-14-2013 End: 10-14-2013 CLEMENTE Maloney MD Start: 10-14-2013 End: 10-14-2013 Follow Up Appt 6 months Amanda Mcconnell Start: 10-14-2013 End: 10-14-2013 MMM Adam Maloney MD Start: 09-02-2013 End: 09-02-2013 Follow Up Appt Other Carmen mejia PA-C Work Phone: Start: 09-02-2013 End: 09-28-2015 Nuclear stress test -exercise Carmen Garcia PA-C Work Phone: Start: 06-24-2013 End: 06-24-2013 CLEMENTE Garcia PA-C Work Phone: Start: 06-24-2013 End: 06-24-2013 Follow Up Appt 6 months Carmen singleton PA-C Work Phone: Start: 06-24-2013 End: 06-24-2013 Follow Up Appt Other Carmen mejia PA-C Work Phone: Start: 06-05-2013 End: 06-28-2013 *CAM Maloney MD Start: 06-05-2013 End: 06-29-2013 *Hepatic Function Panel Amanda Mcconnell Start: 06-05-2013 End: 06-29-2013 Lipid panel [AGGREGATE] Amanda Mcconnell Start: 03-23-2013 End: 03-23-2013 *CAM Maloney MD Start: 03-23-2013 End: 03-23-2013 CBC [...] End: 12-22-2012 Follow Up Appt 6 months Amanda Mcconnell Start: 12-22-2012 End: 12-22-2012 MMM Adam [...] stent placement Carmen CAST Comment on above: [id number] LAD and POBA-D1 05/16/2010 NEGATED: Highlighted rowStart: 03-25-2019 End: 03-25-2019 Documentation of current medications Roxanne Gilliam AT Plan of Treatment Date Care Activity Detail Author Start: 11-07-2029 Tetanus vaccination Tetanus: Every 1 0yrs [facility] Start: 11-07-2029 Urine microalbumin profile DTaP,Tdap,Td Vaccine (3 - Td or Tdap) [facility] Start: 01-16-2025 Patient discharge [facility] Start: 01-15-2025 Admission procedure [facility] Start: 01-15-2025 Measuring intake and output [facility] Start: 01-15-2025 End: 01-15-2025 [facility] Start: 01-15-2025 Removal of urinary catheter [facility] Start: 01-14-2025 Application of intermittent pneumatic compression device [facility] Start: 01-14-2025 Measuring intake and output [facility] Start: 01-14-2025 Ambulation therapy management [facility] Start: 01-14-2025 Deep breathing and coughing exercises [facility] Start: 01-14-2025 Admission procedure [facility] Start: 01-14-2025 Assessment of risk o f venous thromboembolism [facility] Start: 01-14-2025 Catheterization of vein [facility] Start: 01-14-2025 Documentation procedure [facility] Start: 01-14-2025 End: 01-14-2025 Following clinical pathway protocol [facility] Start: 01-14-2025 Irrigation of urinar y bladder [facility] Start: 01-14-2025 End: 01-14-2025 Provision of activity privileges [facility] Start: 01-14-2025 Taking patient vital signs [facility] Start: 01-14-2025 Vital signs measurements [facility] Start: 01-14-2025 End: 01-14-2025 [facility] Start: 01-14-2025 Cysto,TUR,Prostate,O lymp us (Not Applicable) Cysto,TUR,Prostate,Janessa mpus (Not Applicable) [facility] Start: 01-14-2025 Hospital admission, emergency, from emergency room, medical nature [facility] Start: 01-14-2025 Referral to service [facility] Start: 01-14-2025 Referral to service [facility] Start: 01-14-2025 Suicide precautions [facility] Start: 01-14-2025 Consultation [facility] Start: 01-12-2025 [facility] Start: 01-11-2025 Bacteria identified in Urine by Culture Urine Culture [facility] Start: 01-11-2025 [facility] Start: 01-10-2025 Tetanus vaccination Tetanus: Every 1 0yrs [facility] Start: 09-01-2024 Patient referral [facility] Work Phone: Start: 04-03-2024 [facility] Start: 01-04-2024 Covid-19 Vaccine ( season) Covid-19 Vaccine ( season) [facility] Start: 05-12-2023 Patient referral [facility] Work Phone: Start: 05-07-2023 Patient referral [facility] Work Phone: Start: 05-05-2023 Advance Directive Discussion Advance Directive Discussion [facility] Start: 01-28-2023 Patient referral [facility] Work Phone: Start: 01-03-2023 COVID-19 Vaccine ( season) COVID-19 Vaccine ( season) [facility] Start: 01-03-2023 Influenza vaccination Sequenti al Influenza Vaccine (#1) [facility] Start: 2022 RSV Vaccine (1 - 1-d ose 75+ series) RSV Vaccine (1 - 1-dose 75+ series) [facility] Start: 11-30-2021 Patient referral [facility] Work Phone: Start: 11-19-2021 Catheterization of l eft heart [facility] Work Phone: Start: 10-24-2021 Patient referral [facility] Work Phone: Start: 10-10-2021 Patient referral [facility] Work Phone: Start: 07-03-2021 Patient referral [facility] Work Phone: Start: 08-23-2020 End: 08-23-2020 Office Visit [facility] Start: 01-04-2020 Influenza vaccinatio n given Sequential Influenza Vaccine (#1) [facility] Start: 04-16-2019 Ambulatory 04/16/2019 Off ice Visit Endocrinology Osei, Bib Warren MD [facility] Salvatore Jarvis [place] [phone] [facility] Start: 03-25-2019 End: 03-25-2019 Radex spine cervical 4 or 5 views XR CERVICAL 4VWS FLEX/EXT [facility] Work Phone: Start: 01-03-2018 Influenza vaccinatio n given SEQUENTIAL INFLUENZA VACCINE (#1) [facility] Start: 05-07-2017 End: 05-07-2017 Appointment Appointment [facility] Work Phone: Start: 04-21-2017 End: 04-29-2017 *Hepatic Function Panel *Hepatic Function Panel [facility] Work Phone: Start: 04-21-2017 End: 04-29-2017 Lipid panel [AGGREGATE] *Lipid Profile CC PCP [facility] Work Phone: Start: 01-03-2017 Influenza vaccination SEQUENTI AL INFLUENZA VACCINE (#1) [facility] Work Phone: Start: 11-08-2016 End: 11-08-2016 Appointment Appointment [facility] Work Phone: Start: 11-08-2016 End: 11-08-2016 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 [facility] Work Phone: Start: 11-08-2016 End: 11-08-2016 Follow Up Appt 6 months Follow Up Appt 6 months [facility] Work Phone: Start: 10-29-2016 End: 10-29-2016 Appointment Appointment [facility] Work Phone: Start: 10-29-2016 End: 10-29-2016 Appointment Appointment [facility] Work Phone: Start: 10-11-2016 End: 10-18-2016 *Hepatic Function Panel *Hepatic Function Panel [facility] Work Phone: Start: 10-11-2016 End: 10-18-2016 Lipid panel [AGGREGATE] *Lipid Profile CC PCP [facility] Work Phone: Start: 04-24-2016 End: 04-12-2016 *Hepatic Function Panel *Hepatic Function Panel [facility] Work Phone: Start: 04-24-2016 End: 04-12-2016 Lipid panel [AGGREGATE] *Lipid Profile CC PCP [facility] Work Phone: Start: 10-24-2015 End: 10-24-2015 Follow Up Appt 1 year Follow Up Appt 1 year [facility] Work Phone: Start: 10-24-2015 End: 10-24-2015 MMM MMM [facility] Work Phone: Start: 10-17-2015 End: 10-23-2015 *Hepatic Function Panel *Hepatic Function Panel [facility] Work Phone: Start: 10-17-2015 End: 10-23-2015 Lipid panel [AGGREGATE] *Lipid Profile CC PCP [facility] Work Phone: Start: 04-21-2015 End: 04-21-2015 Electrocardiogram, complete EKG (In office) [facility] Work Phone: Start: 04-21-2015 End: 04-21-2015 Follow Up Appt 6 months Follow Up Appt 6 months [facility] Work Phone: Start: 04-21-2015 End: 04-21-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 [facility] Work Phone: Start: 10-06-2014 End: 10-06-2014 Follow Up Appt 6 months Follow Up Appt 6 months [facility] Work Phone: Start: 09-26-2014 End: 10-03-2014 *Hepatic Function Panel *Hepatic Function Panel [facility] Work Phone: Start: 09-26-2014 End: 10-03-2014 Lipid panel [AGGREGATE] *Lipid Profile CC PCP [facility] Work Phone: Start: 04-05-2014 End: 04-05-2014 Follow Up Appt 6 months Follow Up Appt 6 months [facility] Work Phone: Start: 04-05-2014 End: 04-05-2014 MMM [facility] Work Phone: Start: 12-03-2013 End: 03-28-2014 *Hepatic Function Panel *Hepatic Function Panel [facility] Work Phone: Start: 12-03-2013 End: 03-28-2014 Lipid panel [AGGREGATE] *Lipid Profile CC PCP [facility] Work Phone: Start: 10-14-2013 End: 10-14-2013 [facility] Work Phone: Start: 10-14-2013 End: 10-14-2013 Follow Up Appt 6 months Follow Up Appt 6 months [facility] Work Phone: Start: 10-14-2013 End: 10-14-2013 MMM MMM [facility] Work Phone: Start: 09-02-2013 End: 09-02-2013 Follow Up Appt Other Follow Up Appt Other [facility] Work Phone: Start: 09-02-2013 End: 09-02-2013 Nuclear stress test -exercise Nuclear stress test -exercise [facility] Work Phone: Start: 06-24-2013 End: 06-24-2013 [facility] Work Phone: Start: 06-24-2013 End: 06-24-2013 Follow Up Appt 6 months Follow Up Appt 6 months [facility] Work Phone: Start: 06-24-2013 End: 06-24-2013 Follow Up Appt Other Follow Up Appt Other [facility] Work Phone: Start: 06-05-2013 End: 06-28-2013 *BMP *BMP [facility] Work Phone: Start: 06-05-2013 End: 06-29-2013 *Hepatic Function Panel *Hepatic Function Panel [facility] Work Phone: Start: 06-05-2013 End: 06-29-2013 Lipid panel [AGGREGATE] *Lipid Profile [facility] Work Phone: Start: 03-23-2013 End: 03-23-2013 *BMP *BMP [facility] Work Phone: Start: 03-23-2013 End: 03-23-2013 CBC W Auto Differential panel - Blood *CBC without Diff [facility] Work Phone: Start: 03-23-2013 End: 09-02-2013 Chest x-ray X-Ray, Chest, PA & Lateral [facility] Work Phone: Start: 03-23-2013 End: 03-23-2013 Coagulation factor induced.INR assay in platelet poor plasma *PT/INR [facility] Work Phone: Start: 03-23-2013 End: 03-23-2013 Electrocardiogram, complete EKG (In office) [facility] Work Phone: Start: 03-23-2013 End: 03-23-2013 Left Heart Cath Left Heart Cath [facility] Work Phone: Start: 03-15-2013 Administration of [facility] zoster vaccine Zoster Vaccines (2 of 3) [facility] Start: 03-15-2013 Shingrix Vaccine (2 of 3) Shingrix Vaccine (2 of 3) [facility] Start: 12-22-2012 End: 12-22-2012 Follow Up Appt 6 months Follow Up Appt 6 months [facility] Work Phone: Start: 12-22-2012 End: 12-22-2012 MMM MMM [facility] Work Phone: Start: 12-03-2012 End: 12-28-2012 *Hepatic Function Panel *Hepatic Function Panel [facility] Work Phone: Start: 12-03-2012 End: 12-28-2012 Lipid panel [AGGREGATE] *Lipid Profile [facility] Work Phone: Start: 06-05-2012 End: 04-01-2012 *Hepatic Function Panel *Hepatic Function Panel [facility] Work Phone: Start: 06-05-2012 End: 06-17-2012 Lipid panel [AGGREGATE] *Lipid Profile [facility] Work Phone: Start: 2012 Fall risk assessment Falls Risk Asse ssment [facility] Start: 2012 Pneumococcal vaccination PNEUM OCOCCAL VACCINE AGE 65+ (1 of 2 - PCV13) [facility] Work Phone: Start: 2012 Ultrasound scan of abdominal aorta ABDOMINAL AORTIC ULTRASOUND [facility] Work Phone: Start: 01-02-2012 End: 01-02-2012 Electrocardiogram, complete EKG (In office) [facility] Work Phone: Start: 01-02-2012 End: 01-03-2012 Follow Up Appt 1 year Follow Up Appt 1 year [facility] Work Phone: Start: 12-04-2011 End: 12-23-2011 *Hepatic Function Panel *Hepatic Function Panel [facility] Work Phone: Start: 12-04-2011 End: 12-23-2011 Lipid panel [AGGREGATE] *Lipid Profile [facility] Work Phone: Start: 06-13-2011 End: 06-13-2011 Follow Up Appt 6 months Follow Up Appt 6 months [facility] Work Phone: Start: 2007 Hepatitis B Vaccine (1 of 3 - Risk 3-dose series) Hepatitis B Vaccine (1 of 3 - Risk 3-dose series) [facility] Start: 2007 Zoster vacc, sc ZOSTER VACCINE [facility] Work Phone: Start: 1997 Administration of he rpes zoster vaccine Zoster Vaccines (1 of 2) [facility] Start: 1997 Screening for malign ant neoplasm of colon [facility] Start: 1992 Diabetes Screening Diabetes Screenin g [facility] Start: 1966 Hepatitis A Vaccine (1 of 2 - Risk 2-dose series) Hepatitis A Vaccine (1 of 2 - Risk 2-dose series) [facility] Start: 1965 Anxiety Screening Anxiety Screening [facility] Start: 1965 Depression Screening Depression Scre ening [facility] Start: 1965 Hepatitis C antibody , confirmatory test Hepatitis C Screening [facility] Start: 1965 Hepatitis C screening Hepatitis C Sc reening [facility] Start: 1963 COVID-19 Vaccine (1 of 2) COVID-19 Vaccine (1 of 2) [facility] Start: 1959 Adolescent depressio n screening assessment Depression Screening (PHQ9) [facility] Start: 1959 Depression screening using PHQ-9 (Patient Health Questionnaire 9) score [facility] Start: 1950 History and physical examination, annual for health maintenance Wellness Visit [facility] Start: 1947 Fall risk assessment Falls Risk Asse ssment [facility] Start: 1947 Hepatitis C antibody , confirmatory test HEPATITIS C SCREENING [facility] Start: 1947 HEPATITIS C SCREENING HEPATITIS C SC REENING [facility] Work Phone: Start: 1947 Prostate specific antigen measurement PSA Level [facility] Start: 1947 Screening colonoscopy COLONOSCOPY O [facility] Work Phone: Start: 1947 Screening for malign ant neoplasm of colon Colorectal Cancer Screening: Colonoscopy [facility] Start: 1947 Tetanus vaccination TETANUS EVERY 10 YR [facility] Work Phone: Start: 1947 US scan of abdominal aorta Abdominal Aortic Ultrasound [facility] Amphetamines [Presen ce] in Urine by Screen method >1000 ng/mL [facility] Benzodiazepine measurement, urine [facility] Bilirubin measuremen t, urine [facility] Catheterization of l eft heart [facility] Work Phone: Cocaine measurement, urine [facility] fentaNYL [Presence] in Urine by Screen method [facility] Hemoglobin [Presence ] in Urine [facility] Measurement of keton es in urine using dipstick [facility] Methadone measuremen t, urine [facility] Microscopic urinalysis [facility] Organism count, microscopic method [facility] Patient Education [facility] Work Phone: Patient referral [facility] Work Phone: pH of Urine [facility] Phencyclidine [Prese nce] in Urine [facility] Specific gravity of Urine [facility] End: 08-25-2019 T4 free mass conc T4, Free Routine Multinodular goiter (nontoxic) 1 Occurrences starting 08/24/2018 until 08/25/2019 [facility] Comment on above: 1 Occurrences starti ng 08/24/2018 until 08/25/2019 End: 05-11-2021 Thyrotropin [Units/volume] in Serum or Plasma TSH Lab Routine Nontoxic multinodular goiter 1 Occurrences starting 05/11/2020 until 05/11/2021 [facility] Comment on above: 1 Occurrences starti ng 05/11/2020 until 05/11/2021 End: 07-08-2024 Thyrotropin [Units/volume] in Serum or Plasma TSH Lab Routine Goiter, nontoxic, multinodular 1 Occurrences starting 07/08/2023 until 07/08/2024 [facility] Comment on above: 1 Occurrences starti ng 07/08/2023 until 07/08/2024 End: 08-25-2019 Thyrotropin Qn TSH Routine Multinodular goiter (nontoxic) 1 Occurrences starting 08/24/2018 until 08/25/2019 [facility] Comment on above: 1 Occurrences starti ng 08/24/2018 until 08/25/2019 End: 04-17-2018 Thyroxine (T4) free T4, Free Routine Multinodular goiter (nontoxic) 1 Occurrences starting 04/16/2017 until 04/17/2018 [facility] Work Phone: End: 05-11-2021 Thyroxine (T4) free [Mass/volume] in Serum or Plasma T4, Free Lab Routine Nontoxic multinodular goiter 1 Occurrences starting 05/11/2020 until 05/11/2021 [facility] Comment on above: 1 Occurrences starti ng 05/11/2020 until 05/11/2021 End: 07-08-2024 Thyroxine (T4) free [Mass/volume] in Serum or Plasma T4, Free Lab Routine Goiter, nontoxic, multinodular 1 Occurrences starting 07/08/2023 until 07/08/2024 [facility] Comment on above: 1 Occurrences starti ng 07/08/2023 until 07/08/2024 End: 04-17-2018 TSH TSH Routine Multinodular goiter (nontoxic) 1 Occurrences starting 04/16/2017 until 04/17/2018 [employer] Work Phone: Urine cannabinoid measurement [facility] Urine culture [facility] Urine dipstick for glucose [facility] Urine dipstick for leukocyte esterase [facility] Urine dipstick for nitrite [facility] Urine dipstick for protein [facility] Urine examination [facility] Urine microscopy: epithelial cells [facility] Urine microscopy: re d cells [facility] Urine opiate measurement [facility] Urobilinogen [Presen ce] in Urine [facility] US Heart [facility] End: 04-17-2018 US Thyroid US Thyroid Routine Multinodular goiter (nontoxic) 1 Occurrences starting 04/16/2017 until 04/17/2018 [facility] Work Phone: End: 07-08-2024 US Thyroid gland US Thyroid Only Imaging Routine Goiter, nontoxic, multinodular 1 Occurrences starting 07/08/2023 until 07/08/2024 [facility] Work Phone: Comment on above: 1 Occurrences starti ng 07/08/2023 until 07/08/2024 White blood cell count [facility] XR Knee 3 Views [facility] Immunizations Immunization Date Immunization Notes Care Provider [facility] 02-04-2024 Seasonal trivalent influenza vaccine, adjuvanted, preservative free Dr. Gauri Vila DO Work Phone: [facility] 03-03-2023 influenza, injectabl e, quadrivalent, preservative free Dr. Gauri Vila DO Work Phone: [facility] 03-03-2023 Pfizer Covid-19 (Comirnaty) Dr. Gauri Vila DO Work Phone: [facility] 03-06-2022 Covid Pfizer Bivalen t Booster Dr. Gauri Vila DO Work Phone: [facility] 03-06-2022 Influenza High-Dose Quadrivalent Dr. Gauri Vila DO Work Phone: [facility] 07-03-2021 pneumococcal vaccine , unspecified formulation Dr. Gauri Vila Work Phone: [facility] Work Phone: 07-03-2021 pneumococcal polysaccharide vaccine, [address] Gauri Vila Work Phone: [facility] 03-17-2021 Covid (Pfizer) Dr. Gauri gillespie DO Work Phone: [facility] 02-12-2021 Influenza High-Dose Quadrivalent Dr. Gauri Vila DO Work Phone: [facility] 07-13-2020 Covid (Edis & Edis) Dr. Gauri Vila Work Phone: [facility] 02-17-[address] Gauri Vila Work Phone: [facility] 02-03-2020 influenza, injectabl e, quadrivalent, preservative free Dr. Gauri Vila DO Work Phone: [facility] 11-08-2019 tetanus toxoid, redu brittni diphtheria toxoid, and acellular pertussis vaccine, adsorbed Dr. Gauri Vila Work Phone: [facility] 01-22-2019 influenza, high dose seasonal, preservative-free Dr. Gauri Vila DO Work Phone: [facility] 01-22-2019 influenza, injectabl e, quadrivalent, preservative free Dr. Gauri Vila Work Phone: [facility] 01-22-2019 influenza, seasonal, injectable Dr. Gauri Vila Work Phone: [facility] 02-14-2016 pneumococcal conjuga te vaccine, [address] Gauri Vila DO Work Phone: [facility] 03-07-2015 influenza, seasonal, injectable, preservative free Dr. Gauri Vila DO Work Phone: [facility] 01-10-2015 tetanus toxoid, redu brittni diphtheria toxoid, and acellular pertussis vaccine, adsorbed Dr. Gauri Vila DO Work Phone: [facility] 02-21-2014 pneumococcal polysaccharide vaccine, [address] Gauri Vila DO Work Phone: [facility] 02-16-2014 pneumococcal polysaccharide vaccine, [address] Gauri Vila DO Work Phone: [facility] 02-16-[address] Corrine Vila Work Phone: [facility] Work Phone: 02-16-2014 pneumococcal vaccine , unspecified formulation Dr. Gauri Vila Work Phone: [facility] 02-02-2014 pneumococcal vaccine , unspecified formulation Dr. Gauri Vila DO Work Phone: [facility] 01-18-2013 zoster vaccine, live Dr. Corrine Vila DO Work Phone: [facility] 05-15-2009 novel influenza-H1N1 -09, preservative-free, injectable Dr. Gauri Vila DO Work Phone: [facility] Payers Date Payer Category Payer Self-pay [id number] 2023 Private Health Insurance [facility] AARP SUPPLEMENT [id number] 2023-Present [phone] [address] [place] [address] Indemnity [id number] 2015 Unknown [id number] 2015 Unknown AARP AARP COMMER CIAL [id number] 2015-Present [id number] 2015 Unknown AARP AARP COMMER RLL [id number] 2015-Present [id number] 2015 Unknown AARP AARP COMMER RLL [id number] 2015-Present [phone] [address] [place] [address] [id number] 2012 Medicare MEDICARE MEDICAR E PART A & B xxxxxxxxxx 2012-Present MD xxxxxxxxxx [id number] 2012 Medicare MEDICARE MEDICAR E PART A & B [id number] 2012-Present MD [id number] 2012 Medicare [id number] 2012 Medicare [id number] 1945 Unknown [id number] 1945 Unknown [id number] Medicare [id number] 3 Unknown [id number] Unknown [id number] Unknown [id number] Unknown [id number] Unknown [id number] Unknown [id number] Unknown [id number] .462 Unknown [id number] 2.16.840.1.133712.3.579.2 .462 Unknown [id number] 2.16.840.1.875580.3.579.2 .462 Unknown [id number] 2.16.840.1.535374.3.579.2 .462 Unknown [id number] 2.16.840.1.429281.3.579.2 .462 Unknown [id number] 2..840.1.080315.3.579.2 .462 Unknown [id number] 2.16840.1.772222.3.579.2 .462 Unknown [id number] 2.16840.1.319762.3.579.2 .462 Unknown [id number] 2.16.840.1.342143.3.579.2 .462 Unknown [id number] 2.16.840.1.301090.3.579.2 .462 Unknown [id number] 2.16840.1.844525.3.579.2 .462 Unknown [id number] 2.16.840.1.160683.3.579.2 .462 Unknown [id number] 2.16.840.1.888784.3.579.2 .462 Unknown [id number] 2.16.840.1.838973.3.579.2 .462 Unknown [id number] 2.16.840.1.408143.3.579.2 .462 Unknown [id number] 2.16.840.1.369587.3.579.2 .462 Unknown [id number] 2.16.840.1.152191.3.579.2 .462 Social History Date Type Detail Facility Start: 04-16-2017 End: 01-14-2025 Tobacco smoking status NHIS Former smoker [facility] Work Phone: Start: 05-04-1965 End: 05-04-1980 History of tobacco use Current smoker [facility] Work Phone: Start: 1945 Sex Assigned At Not on file O [facility] Work Phone: Start: 08-14-2021 End: 07-04-2023 Assertion Unknown if ever smoked [facility] Work Phone: Start: 08-24-2018 End: 04-03-2024 Tobacco use and exposure Never used [facility] Start: 08-24-2018 End: 04-03-2024 Alcohol intake Current non-drinker of alcohol (finding) [facility] Exposure to SARS-CoV-2 (event) Not sure [facility] Start: 10-24-2020 None [facility] Start: 02-15-2014 Spouse/ Signif icant Other [facility] Start: 10-24-2020 Non-smoker [facility] Start: 1945 Sex Assigned At Male W [facility] Start: 05-04-1965 End: 05-04-1980 History of tobacco use Cigarette Smoker [facility] Start: 08-23-2020 End: 04-03-2024 History of Social function [facility] Start: 08-23-2020 End: 04-03-2024 Tobacco use panel [facility] Start: 07-16-2024 End: 07-30-2024 Sex Male (finding) [facility] NEGATED: Highlighted rowStart: 03-25-2019 End: 03-25-2019 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 [facility] Work Phone: Goals Date Patient Goal Desired Activity /State Functional Status Date Assessment Result Facility 01-16-2025 Functional status Ambulates;Up ad [facility] Work Phone: 01-15-2025 Functional status Assistive Devices None [facility] Work Phone: Mental Status Date Assessment Result Facility 01-15-2025 Cognitive function Appropriate;Cooperativ e [facility] Work Phone: 01-10-2022 Cognitive function Level Of Cons ciousness Awake;Alert;Appropriate;Follow s Commands [facility] Work Phone: Clinical Notes 08-23-2020 to 01-15-2025 Note Date & Type Note Facility 01-15-2025 Hospital Discharg e instructions Additional Instructions Date of Discharge: 01/15/25 [facility] Work Phone: 01-15-2025 Discharge summary Note Date/Time January 15, 2025 8:04am [facility] Medical Records Department [address] [place] [address] Discharge Summary 01/15/25 0803 MR#: [id number] Acct: [id number] Name: ARTURO CORONADO Rep #:[id number] : 1945 79 From: Spenser Winston MD PCP: Dr. Gauri Vila, DO Status:SOLOMON Orr PATRICE Location: MS3 [id number] Providers Date of Admission: 01/14/25 Date of Discharge: 01/15/25 Primary Care Physician: Dr. Gauri Vila, DO Reason For Visit: TURP Medications at Discharge Home Medications coenzyme [id number]-[id number] 100 mg-20 mg capsule 1 ea PO DAILY 03/25/13 multivitamin with folic acid 400 mcg tablet 1 tab PO DAILY 03/25/13 omega-3 fatty acids 1,000 mg capsule 500 mg PO DAILY 08/20/18 aspirin 81 mg chewable tablet 81 mg PO DAILY #90 tabs 08/15/20 Held on 01/14/25. Instructions: Resume on 01/28/25. nitroglycerin 0.4 mg sublingual tablet (Nitrostat) 0.4 mg sublingual Q5-15M PRN chest pain #25 tabs 07/04/23 magnesium 200 mg tablet 200 mg PO QDAY 01/13/24 pregabalin 50 mg capsule 50 mg PO QHS PRN neck pain #90 caps 02/05/24 lisinopril 10 mg tablet 10 mg PO BID #180 tabs 06/02/24 atorvastatin 80 mg tablet See Rx Instructions .Route .COMPLEX #90 tabs 07/26/24 metoprolol tartrate 50 mg tablet 50 mg PO BID #180 tabs 07/26/24 clopidogrel 75 mg tablet See Rx Instructions .Route .COMPLEX #90 tabs 09/22/24 Held on 01/14/25. Instructions: Resume on 01/28/25. amlodipine 2.5 mg tablet 2.5 mg PO DAILY #90 tabs 10/18/24 cephalexin 500 mg capsule 500 mg PO TID 01/14/25 finasteride 5 mg tablet 5 mg PO DAILY 01/14/25 phenazopyridine 100 mg tablet 100 mg PO TID 01/14/25 tamsulosin 0.4 mg capsule 0.4 mg PO QHS 01/14/25 Hospital Course Operations TURP Summary of Care Provided Hospital Course: Patient was taken to the emergency room because he is extremely stressed out about having a catheter and having lots of pain and bladder spasms so I offered to the immediate surgery for a TURP, Lin catheter removed today first day after surgery urine is fairly clear he knows there is no guarantees he will be able to urinate but hopefully he can urinate and go home today without a catheter he is feeling much better. Weight / BMI Weight Weight: 78.9 kg Body Mass Index (BMI) 24.3 ABG / Lab / Microbiology Data 01/14/25 15:30 01/14/25 15:30 Laboratory: Laboratory Results - last 24 hr 01/14/25 15:30: WBC 10.0, RBC 5.11, Hgb 15.5, Hct 45.5, MCV 89.0, MCH 30.3, MCHC34.1, RDW Std Deviation 41.6, RDW Coeff of Leeroy 12.6, Plt Count 262, MPV 9.9, Immature Gran % (Auto) 0.600, Neut % (Auto) 78.4 H, Lymph % (Auto) 11.4 L, Cheatham % (Auto) 8.8, Eos % (Auto) 0.4, Baso % (Auto) 0.4, Absolute Neuts (auto) 7.8 H, Absolute Lymphs (auto) 1.14, Nucleated RBC % 0, Sodium 133, Potassium 4.1, Chloride 98, Carbon Dioxide 20.0 L, Anion Gap 15, BUN 15, Creatinine 0.96, Est GFR (MDRD) Non-Af 82, BUN/Creatinine Ratio 15.2, Glucose 122 H, Calcium 9.4, Ethyl Alcohol < 10.1 01/14/25 16:23: Urine Color Yellow, Urine Clarity Sl. Cloudy, Urine pH 6.5, Ur Specific [place] 1.015, Urine Protein 30 H, Urine Glucose (UA) Normal, Urine Ketones 50 H, Urine Occult Blood 250 H, Urine Nitrite Positive H, Urine Bilirubin 3 H, Urine Urobilinogen 4 H, Ur Leukocyte Esterase 100 H, Urine RBC 0-5 SEEN, Urine WBC 0-5 SEEN, Ur Squamous Epith Cells 0-5 SEEN, Urine Bacteria 2+,Urine Mucus 0 SEEN, Urine Opiates Screen NEGATIVE, U Buprenorphine Qual NEGATIVE, Ur Oxycodone Screen NEGATIVE, Urine Methadone Screen NEGATIVE, Urine Fentanyl Screen NEGATIVE, Ur Barbiturates Screen NEGATIVE, Ur Phencyclidine ScrnNEGATIVE, Ur Amphetamines Screen NEGATIVE, U Benzodiazepines Scrn NEGATIVE, Urine Cocaine Screen NEGATIVE, U Cannabinoids Screen NEGATIVE D/C Instructions DC O2, CPAP, BIPAP Needs Home O2 Discharge instructions: No Meaningful Use Info Meaningful Use Meaningful Use Diagnoses (Choose all that apply): None applicable Discharge Plan Admission Admit Date/Time: 01/14/25 18:01 Primary Reason for Your Visit: aaron Attending Provider: Spenser Winston Primary Care Provider: Gauri Vila Discharge Orders/Prescriptions Prescriptions: Continued omega-3 fatty acids 1,000 mg capsule 500 mg PO DAILY nitroglycerin [Nitrostat] 0.4 mg tablet, sublingual 0.4 mg sublingual Q5-15M PRN (Reason: chest pain) Qty: 25 3RF Rx Instructions: do not exceed 3 doses per episode magnesium 200 mg tablet 200 mg PO QDAY multivitamin with folic acid 1 TABLET tablet 1 tab PO DAILY Patient Comments: Vitamins coenzyme H15-J-ojevaeibb 1 EACH capsule 1 ea PO DAILY Patient Comments: Supplement for cholestrol tamsulosin 0.4 mg capsule 0.4 mg PO QHS phenazopyridine 100 mg tablet 100 mg PO TID cephalexin 500 mg capsule 500 mg PO TID finasteride 5 mg tablet 5 mg PO DAILY pregabalin 50 mg capsule 50 mg PO [...] 50 mg PO BID Qty: 180 3RF amlodipine 2.5 mg tablet 2.5 mg PO DAILY Qty: 90 0RF Held aspirin 81 mg tablet,chewable 81 mg PO DAILY Qty: 90 3RF Hold Instructions: Resume on 01/28/25. clopidogrel 75 mg tablet See Rx Instructions .ROUTE .COMPLEX Qty: 90 3RF Hold Instructions: Resume on 01/28/25. Dose Instruction: TAKE 1 TABLET BY MOUTH EVERY DAY Rx Instructions: TAKE 1 TABLET BY MOUTH EVERY DAY Referrals / Follow Up: Gauri Vila DO [Primary Care Provider] - Spenser Winston MD [Med Staff - Active Staff] - Disposition Disposition (needs filled in before D/C Order can be placed): Home, Self Care 01/15/25 0804 <Electronically signed by Spenser Winston MD> Cosigner Signature (if applicable): CC: Dr. Gauri Vila DO; Dr. Spenser Winston MD~ Signed [facility] Work Phone: 1(754) 690-896809-13-2025 Discharge summary [facility] Medical Records Department [address] [place] [address] Discharge Summary 01/15/25 0803 MR#: [id number] Acct: [id number] Name: ARTURO CORONADO René Rep #:[id number] : 1945 79 From: Spenser Winston MD PCP: Dr. Gauri Vila DO Status:SOLOMON IBRAHIM [place] [id number] Providers Date of Admission: 01/14/25 Date of Discharge: 01/15/25 Primary Care Physician: Dr. Gauri Vila DO Reason For Visit: TURP Medications at Discharge Home Medications coenzyme [id number]-[id number]-lsdkaupdd 100 mg-20 mg capsule 1 ea PO DAILY 03/25/13 multivitamin with folic acid 400 mcg tablet 1 tab PO DAILY 03/25/13 omega-3 fatty acids 1,000 mg capsule 500 mg PO DAILY 08/20/18 aspirin 81 mg chewable tablet 81 mg PO DAILY #90 tabs 08/15/20 Held on 01/14/25. Instructions: Resume on 01/28/25. nitroglycerin 0.4 mg sublingual tablet (Nitrostat) 0.4 mg sublingual Q5-15M PRN chest pain #25 tabs07/04/23 magnesium 200 mg tablet 200 mg PO QDAY 01/13/24 pregabalin 50 mg capsule 50 mg PO QHS PRN neck pain #90 caps 02/05/24 lisinopril 10 mg tablet 10 mg PO BID #180 tabs 06/02/24 atorvastatin 80 mg tablet See Rx Instructions .Route .COMPLEX #90 tabs 07/26/24 metoprolol tartrate 50 mg tablet 50 mg PO BID #180 tabs 07/26/24 clopidogrel 75 mg tablet See Rx Instructions .Route .COMPLEX #90 tabs 09/22/24 Held on 01/14/25. Instructions: Resume on 01/28/25. amlodipine 2.5 mg tablet 2.5 mg PO DAILY #90 tabs 10/18/24 cephalexin 500 mg capsule 500 mg PO TID 01/14/25 finasteride 5 mg tablet 5 mg PO DAILY 01/14/25 phenazopyridine 100 mg tablet 100 mg PO TID 01/14/25 tamsulosin 0.4 mg capsule 0.4 mg PO QHS 01/14/25 Hospital Course Operations TURP Summary of Care Provided Hospital Course: Patient was taken to the emergency room because he is extremely stressed out about having a catheter and having lots of pain and bladder spasms so I offered to the immediate surgery for a TURP, Foleycatheter removed today first day after surgery urine is fairly clear he knows there is no guarantees he will be able to urinate but hopefully he can urinate and go home today without a catheter he is feeling much better. Weight / BMI Weight Weight: 78.9 kg Body Mass Index (BMI) 24.3 ABG / Lab / Microbiology Data 01/14/25 15:30 01/14/25 15:30 Laboratory: Laboratory Results - last 24 hr 01/14/25 15:30: WBC 10.0, RBC 5.11, Hgb 15.5, Hct 45.5, MCV 89.0, MCH 30.3, MCHC34.1, RDW Std Deviation 41.6, RDW Coeff of Leeroy 12.6, Plt Count 262, MPV 9.9, Immature Gran % (Auto) 0.600, Neut % (Auto) 78.4 H, Lymph % (Auto) 11.4 L, [place] % (Auto) 8.8, Eos % (Auto) 0.4, Baso % (Auto) 0.4, Absolute Neuts (auto) 7.8 H, Absolute Lymphs (auto) 1.14, Nucleated RBC % 0, Sodium 133, Potassium 4.1, Chloride 98, Carbon Dioxide 20.0 L, Anion Gap 15, BUN 15, Creatinine 0.96, Est GFR (MDRD) Non-Af 82, BUN/Creatinine Ratio 15.2, Glucose 122 H, Calcium 9.4, Ethyl Alcohol < 10.1 01/14/25 16:23: Urine Color Yellow, Urine Clarity Sl. Cloudy, Urine pH 6.5, Ur Specific [place] 1.015, Urine Protein 30 H, Urine Glucose (UA) Normal, Urine Ketones 50 H, Urine Occult Blood 250 H, Urine Nitrite Positive H, Urine Bilirubin 3 H, Urine Urobilinogen 4 H, Ur Leukocyte Esterase 100 H, Urine RBC 0- 5 SEEN, Urine WBC 0-5 SEEN, Ur Squamous Epith Cells 0-5 SEEN, Urine Bacteria 2+,Urine Mucus0 SEEN, Urine Opiates Screen NEGATIVE, U Buprenorphine Qual NEGATIVE, Ur Oxycodone Screen NEGATIVE,Urine Methadone Screen NEGATIVE, Urine Fentanyl Screen NEGATIVE, Ur Barbiturates Screen NEGATIVE, Ur Phencyclidine ScrnNEGATIVE, Ur Amphetamines Screen NEGATIVE, U Benzodiazepines Scrn NEGATIVE, Urine Cocaine Screen NEGATIVE, U Cannabinoids Screen NEGATIVE D/C Instructions DC O2, CPAP, BIPAP Needs Home O2 Discharge instructions: No Meaningful Use Info Meaningful Use Meaningful Use Diagnoses (Choose all that apply): None applicable Discharge Plan Admission Admit Date/Time: 01/14/25 18:01 Primary Reason for Your Visit: aaron Attending Provider: Spenser Winston Primary Care Provider: Gauri Vila Discharge Orders/Prescriptions Prescriptions: Continued omega-3 fatty acids 1,000 mg capsule 500 mg PO DAILY nitroglycerin [Nitrostat] 0.4 mg tablet, sublingual 0.4 mg sublingual Q5-15M PRN (Reason: chest pain) Qty: 25 3RF Rx Instructions: do not exceed 3 doses per episode magnesium 200 mg tablet 200 mg PO QDAY multivitamin with folic acid 1 TABLET tablet 1 tab PO DAILY Patient Comments: Vitamins coenzyme C15-Q-pbdxzrfer 1 EACH capsule 1 ea PO DAILY Patient Comments: Supplement for cholestrol tamsulosin 0.4 mg capsule 0.4 mg PO QHS phenazopyridine 100 mg tablet 100 mg PO TID cephalexin 500 mg capsule 500 mg PO TID finasteride 5 mg tablet 5 mg PO DAILY pregabalin 50 mg capsule 50 mg PO [...] 50 mg PO BID Qty: 180 3RF amlodipine 2.5 mg tablet 2.5 mg PO DAILY Qty: 90 0RF Held aspirin 81 mg tablet,chewable 81 mg PO DAILY Qty: 90 3RF Hold Instructions: Resume on 01/28/25. clopidogrel 75 mg tablet See Rx Instructions .ROUTE .COMPLEX Qty: 90 3RF Hold Instructions: Resume on 01/28/25. Dose Instruction: TAKE 1 TABLET BY MOUTH EVERY DAY Rx Instructions: TAKE 1 TABLET BY MOUTH EVERY DAY Referrals / Follow Up: Gauri Vila DO [Primary Care Provider] - Spenser Winston MD [Med Staff - Active Staff] - Disposition Disposition (needs filled in before D/C Order can be placed): Home, Self Care 01/15/25 08 Cosign Signature (if applicable): CC: Dr. Gauri Vila DO; Dr. Spenser Winston MD~ Signed [facility]09-13-2025 [facility] Medical Records Department [address] [place] [address] Discharge Summary 01/15/25 08 MR#: [id number] Acct: [id number] Name: ARTURO CORONADO Rep #: [id number] : 1945 79 From: Spenser Winston MD PCP: Dr. Gauri R Brown, DO Status:ADM PATRICE Location: MS3 [id number] Providers Date of Admission: 01/14/25 Date of Discharge: 01/15/25 Primary Care Physician: Dr. Gauri Vila, DO Reason For Visit: TURP Medications at Discharge Home Medications coenzyme E15-C-wpxrsvotq 100 mg-20 mg capsule 1 ea PO DAILY 03/25/13 multivitamin with folic acid 400 mcg tablet 1 tab PO DAILY 03/25/13 omega-3 fatty acids 1,000 mg capsule 500 mg PO DAILY 08/20/18 aspirin 81 mg chewable tablet 81 mg PO DAILY #90 tabs 08/15/20 Held on 01/14/25. Instructions: Resume on 01/28/25. nitroglycerin 0.4 mg sublingual tablet (Nitrostat) 0.4 mg sublingual Q5-15M PRN chest pain #25 tabs 07/04/23 magnesium 200 mg tablet 200 mg PO QDAY 01/13/24 pregabalin 50 mg capsule 50 mg PO QHS PRN neck pain #90 caps 02/05/24 lisinopril 10 mg tablet 10 mg PO BID #180 tabs 06/02/24 atorvastatin 80 mg tablet See Rx Instructions .Route .COMPLEX #90 tabs 07/26/24 metoprolol tartrate 50 mg tablet 50 mg PO BID #180 tabs 07/26/24 clopidogrel 75 mg tablet See Rx Instructions .Route .COMPLEX #90 tabs 09/22/24 Held on 01/14/25. Instructions: Resume on 01/28/25. amlodipine 2.5 mg tablet 2.5 mg PO DAILY #90 tabs 10/18/24 cephalexin 500 mg capsule 500 mg PO TID 01/14/25 finasteride 5 mg tablet 5 mg PO DAILY 01/14/25 phenazopyridine 100 mg tablet 100 mg PO TID 01/14/25 tamsulosin 0.4 mg capsule 0.4 mg PO QHS 01/14/25 Hospital Course Operations TURP Summary of Care Provided Hospital Course: Patient was taken to the emergency room because he is extremely stressed out about having a catheter and having lots of pain and bladder spasms so I offered to the immediate surgery for a TURP, Lin catheter removed today first day after surgery urine is fairly clear he knows there is no guarantees he will be able to urinate but hopefully he can urinate and go home today without a catheter he is feeling much better. Weight / BMI Weight Weight: 78.9 kg Body Mass Index (BMI) 24.3 ABG / Lab / Microbiology Data 01/14/25 15:30 01/14/25 15:30 Laboratory: Laboratory Results - last 24 hr 01/14/25 15:30: WBC 10.0, RBC 5.11, Hgb 15.5, Hct 45.5, MCV 89.0, MCH 30.3, MCHC 34.1, RDW Std Deviation 41.6, RDW Coeff of Leeroy 12.6, Plt Count 262, MPV 9.9, Immature Gran % (Auto) 0.600, Neut % (Auto) 78.4 H, Lymph % (Auto) 11.4 L, [place] % (Auto) 8.8, Eos % (Auto) 0.4, Baso % (Auto) 0.4, A bsolute Neuts (auto) 7.8 H, Absolute Lymphs (auto) 1.14, Nucleated RBC % 0, Sodium 133, Potassium 4.1, Chloride 98, Carbon Dioxide 20.0 L, Anion Gap 15, BUN 15, Creatinine 0.96, Est GFR (MDRD) Non- Af 82, BUN/Creatinine Ratio 15.2, Glucose 122 H, Calcium 9.4, Ethyl Alcohol < 10.1 01/14/25 16:23: Urine Color Yellow, Urine Clarity Sl. Cloudy, Urine pH 6.5, Ur Specific [place] 1.015, Urine Protein 30 H, Urine Glucose (UA) Normal, Urine Ketones 50 H, Urine Occult Blood 250 H, Urine Nitrite Positive H, Urine Bilirubin 3 H, Urine Urobilinogen 4 H, Ur Leukocyte Esterase 100 H, Urine RBC 0-5 SEEN, Urine WBC 0-5 SEEN, Ur Squamous Epith Cells 0-5 SEEN, Urine Bacteria 2+, Urine Mucus 0 SEEN, Urine Opiates Screen NEGATIVE, U Buprenorphine Qual NEGATIVE, Ur Oxycodone Screen NEGATIVE, Urine Methadone Screen NEGATIVE, Urine Fentanyl Screen NEGATIVE, Ur Barbiturates Screen NEGATIVE, Ur Phencyclidine Scrn NEGATIVE, Ur Amphetamines Screen NEGATIVE, U Benzodiazepines Scrn NEGATIVE, Urine Cocaine Screen NEGATIVE, U Cannabinoids Screen NEGATIVE D/C Instructions DC O2, CPAP, BIPAP Needs Home O2 Discharge instructions: No Meaningful Use Info Meaningful Use Meaningful Use Diagnoses (Choose all that apply): None applicable Discharge Plan Admission Admit Date/Time: 01/14/25 18:01 Primary Reason for Your Visit: aaron Attending Provider: Spenser Winston Primary Care Provider: Gauri Vila Discharge Orders/Prescriptions Prescriptions: Continued omega-3 fatty acids 1,000 mg capsule 500 mg PO DAILY nitroglycerin [Nitrostat] 0.4 mg tablet, sublingual 0.4 mg sublingual Q5-15M PRN (Reason: chest pain) Qty: 25 3RF Rx Instructions: do not exceed 3 doses per episode magnesium 200 mg tablet 200 mg PO QDAY multivitamin with folic acid 1 TABLET tablet 1 tab PO DAILY Patient Comments: Vitamins coenzyme K38-L-wngjutzhj 1 EACH capsule 1 ea PO DAILY Patient Comments: Supplement for cholestrol tamsulosin 0.4 mg capsule 0.4 mg PO QHS phenazopyridine 100 mg tablet 100 mg PO TID cephalexin 500 mg capsule 500 mg PO TID finasteride 5 mg tablet 5 mg PO DAILY pregabalin 50 mg capsule 50 mg PO QHS PRN (Reason: neck pain) Qty: 90 0RF li (more content not included)...[facility]09-12-2025 Consult note Author Andria Echeverria [facility] Note Date/Time January 14, 2025 6:14pm [facility] Medical Records Department [address] [place] [address] Anesthesia Postop Eval I 01/14/251811 MR#: [id number] Acct: [id number] Name: ARTURO CORONADO Rep #:[id number] : 1945 79 From: Andria Echeverria CRNA PCP: Dr. Gauri Vila, DO Status:AD M PATRICE Y Race: C Location: [place] [address] Anesthesia: Postop Eval I Current Vital Signs Temperature: 97.1 F Pulse Rate: 86 Blood Pressure: 148/80 Respiratory Rate: 16 Pulse Ox: 94 Assessment Airway patent: Yes Spontaneous unlabored respirations: Yes nausea: No Vomiting: No Anesthesia Complication: No Fluid Hydration Crystalloid volume administer (ml): 1,000 Total IV fluid infused: 1,000 Progress Note Anesthesia document: Postop Eval 1 completed: Yes 01/14/251813 <Electronically signed by Andria Sirc a BRICKLAYER> Date _ Andria Echeverria BRICKLAYER Cosigner Signature: Date CC: ~ Signed [facility] Work Phone: 1(286) 217-447609-12-2025 Consult note Author Andria Echeverria [facility] Note Date/Time January 14, 2025 6:14pm [facility] Medical Records Department [address] [place] [address] Anesthesia Postop Eval II 01/14/251813 MR#: [id number] Acct: [id number] Name: ARTURO CORONADO René Rep #:[id number] : 1945 79 From: Andria Echeverria BRICKLAYER PCP: Dr. Gauri Vila, DO Status:AD M PATRICE Y Race: C Location: [place] [address] Anesthesia Postop Eval I Sum Postop Eval Completion status Anesthesia document: Postop Eval 1 completed: Yes Anesthesia Postop Eval I Summary Anesthesia Postop Eval I Summary: Anesthesia Postop Eval I: Assessment Summary Airway patent Yes 01/14/25 18:12 [email or web address] Spontaneous unlabored Yes 01/14/25 18:12 [email or web address] respirations Mental status nausea No 01/14/25 18:12 [email or web address] Vomiting No 01/14/25 18:12 [email or web address] Anesthesia Postop Eval I: Fluid Summary Crystalloid volume administer 1,000 01/14/25 18:12 [email or web address] (ml) Colloids volume administered ( ml) Blood Product volume administered (ml) Total IV fluid infused 1,000 01/14/25 18:12 [email or web address] Anesthesia Postop Eval I: Summary Notes Anesthesia Complication No 01/14/25 18:12 [email or web address] Anesthesia Complication Comment: Post-operative progress note Anesthesia: Postop Eval II Evaluation Mental status: Awake Pain Level: 0 nausea: No Vomiting: No 01/14/251813 <Electronically signed by Andria linares BRICKLAYER> Date _ Andria Echeverria BRICKLAYER Cosigner Signature: Date CC: ~ Signed [facility] Work Phone: 1(966) 778-706209-12-2025 History and physical note Author Spenser Winston [facility] Note Date/Time January 14, 2025 4:50pm [facility] Medical Records Department [address] [place] [address] History & Physical Exam 01/14/25 1650 MR#: [id number] Acct: [id number] Name: ARTURO CORONADO Rep #:[id number] : 1945 79 From: Spenser Winston MD PCP: Dr. Gauri Vila, DO Status:[facility] Location: [facility] [place] HPI - General General Date of Service: 01/14/25 HPI Narrative ARTURO CORONADO, is a 79 M who presents to the ER with retention of urine he is got a Lin catheter plain having severe pain from the Lin catheter and the sides and the desires to have something done he has been off Plavix for 3 days I discussed with him the risk of bleeding he wants to have procedure done so he can urinate he has failed a voiding trial already so organ to proceed with a TURP today. [facility] Medical History Osteoarthritis of left knee Right shoulder strain Scabies Thyroid goiter Back pain due to injury Family history of colon cancer Seborrheic keratoses Cervical disc disease Cervical cord compression with myelopathy Painful neck Swallowing problem Chronic back pain Nonrheumatic mitral (valve) prolapse Essential (primary) hypertension Back pain Obstructive sleep apnea GERD (gastroesophageal reflux disease) Atherosclerosis of coronary artery of [place] heart without angina pectoris Hyperlipidemia Home Medications ?Medication ?Instructions ?Recorded ?Last Taken ?Type coenzyme J71-B-zigcbyvyf 100 mg-20 1 ea PO DAILY 03/2507/03/20 [...] do you feel safe at home: Yes Vital Signs Vital Signs Vital Signs: 01/14/25 14:04 01/14/25 15:33 01/14/25 16:00 Temperature 98.4 F Temperature Source Temporal Pulse Rate 68 69 88 Respiratory Rate 18 16 16 Blood Pressure 165/86 H 155/70 H 138/70 H Blood Pressure Mean 112 98 92 Pulse Ox 98 100 98 Oxygen Delivery Method Room Air 01/14/25 16:35 01/14/25 16:47 Temperature 98.3 F 98.3 F Temperature Source Pulse Rate 88 88 Respiratory Rate 16 16 Blood Pressure 138/70 H 138/70 H Blood Pressure Mean 92 Pulse Ox 98 98 Oxygen Delivery Method Results Lab / Micro Data 01/14/25 15:30 01/14/25 15:30 Labs: Laboratory Results - last 24 hr 01/14/25 15:30: WBC 10.0, RBC 5.11, Hgb 15.5, Hct 45.5, MCV 89.0, MCH 30.3, MCHC34.1, RDW Std Deviation 41.6, RDW Coeff of Leeroy 12.6, Plt Count 262, MPV 9.9, Immature Gran % (Auto) 0.600, Neut % (Auto) 78.4 H, Lymph % (Auto) 11.4 L, Cheatham % (Auto) 8.8, Eos % (Auto) 0.4, Baso % (Auto) 0.4, Absolute Neuts (auto) 7.8 H, Absolute Lymphs (auto) 1.14, Nucleated RBC % 0, Sodium 133, Potassium 4.1, Chloride 98, Carbon Dioxide 20.0 L, Anion Gap 15, BUN 15, Creatinine 0.96, Est GFR (MDRD) Non-Af 82, BUN/Creatinine Ratio 15.2, Glucose 122 H, Calcium 9.4, Ethyl Alcohol < 10.1 01/14/25 1650 <Electronically signed by Spenser Winston MD> Cosigner Signature (if applicable): CC: Dr. Gauri Vila, DO; Dr. Spenser Winston MD~ Signed [facility] Work Phone: 1(206) 970-342709-12-2025 Consult note Author Colby Brito [facility] Note Date/Time January 14, 2025 4:47pm [facility] Medical Records Department [address] [place] [address] Pre-Anesthesia Evaluation 01/14/25 1645 MR#: [id number] Acct: [id number] Name: ARTURO CORONADO Rep #:[id number] : 1945 79 From: Colby Brito MD PCP: Dr. Gauri Vila, DO Status:RE G [facility] Y Race: C Location: [facility] ASA Classification* ASA Classification ASA Classification: 2 and E Assessment & Plan Anesthesia* Anesthesia Assessment Anesthesia Assessment: Discussed sedation and/or anesthesia options, risks, benefits, and alternatives with patient/parents/legal guardian/POA. Questions invited. The patient/parents/legal guardian/POA seems to understand and agrees to proceedwith anesthesia plan. Reviewed the physical assessment, medical history, allergy history and patient home medications list prior to surgery/procedure/anesthetic and documented any changes. Performed airway and anesthesia risk assessments. Anesthesia Type Anesthesia Type: General Anesthesia Focused Assessment* Temperature: 98.3 F Pulse Rate: 88 Blood Pressure: 138/70 Respiratory Rate: 16 Pulse Ox: 98 Airway Assessment Mouth opens: >3 cm Mallampati Score: II Labs Anesthesia Preop lab: CBC WBC 10.0 K/mm3 (4.4-11.0) 01/14/25 15:30 01/14/25 RBC 5.11 M/mm3 (4.6-6.2) 01/14/25 15:30 01/14/25 Hgb 15.5 g/dL (13.0-16.5) 01/14/25 15:30 01/14/25 Hct 45.5 % (40-54) 01/14/25 15:30 01/14/25 Plt Count 262 K/mm3 (150-450) 01/14/25 15:30 01/14/25 CHEMISTRY Potassium 4.1 mmol/L (3.3-5.1) 01/14/25 15:30 01/14/25 Sodium 133 mmol/L (133-145) 01/14/25 15:30 01/14/25 Phosphorus 3.4 mg/dL (2.5-4.9) 02/08/14 11:39 02/08/14 BUN 15 mg/dL (4-19) 01/14/25 15:30 01/14/25 Creatinine 0.96 mg/dL (0.70-1.20) 01/14/25 15:30 01/14/25 Glucose 122 mg/dL (70-99) H 01/14/25 15:30 01/14/25 TSH 2.43 uIU/mL (0.358-3.74) 07/11/23 09:52 COAG PT 13.3 SECONDS (11.7-14.9) 11/14/21 09:17 Pre-Assessment Diagnosis/Proposed Procedure Planned Operative Procedure(s): turp Anesthesia History 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 When Was Last Pacemaker Check QUESTION #4 FULL TEXT: You/Your Family Experience fever (hyperthermia) with Anesthesia Last Oral Intake Last Oral intake: Last Oral Intake NPO since Meds taken in AM with sips of water? Meds patient instructed to take am of surgery PONV PONV - track equipment operator: PONV - track equipment operator Female HX of Motion Sickness HX of N/V After Surgery Non-Smoker Duration of Surgery greater than 60 minutes Number of Risk Factors PONV Score Height & Weight Height & Weight: Anesthesia: Height & Weight Height 5 ft 11 in 01/14/25 14:04 Respiratory Assessment Respiratory Assessment - track equipment operator: Respiratory Tract Infection Hx - track equipment operator Hx Respiratory Tract Infection No 10/02/23 13:34 STOP Sleep Apnea STOP Sleep Apnea - track equipment operator: STOP Sleep Apnea - track equipment operator Hx Hypertension Yes 10/02/23 13:34 Hx Sleep Apnea No 10/02/23 13:34 CPAP No 10/02/23 13:34 BIPAP No 10/02/23 13:34 Do you snore loudly (louder than talking or can be heard Do you often feel tired/ fatigued/ sleepy during daytime? Has anyone observed you stop breathing during sleep? STOP Results QUESTION #5 FULL TEXT : Do you snore loudly (louder than talking or can be heard through closed doors)? 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 Specify any problems Hx of Preganancy in last 3 Months Nurse Filling Out Transfusion & Questions: Date: Time: Patient unable to answer at this time (ie. confused, unrespo /Reproduction History /Reproductive History - track equipment operator: /Reproductive Hx- track equipment operator Hx Now Gestational Age (in weeks): EDC: Hx Hx Para Hx Section SAB [facility] Medical History Osteoarthritis of left knee Right shoulder strain Scabies Thyroid goiter Back pain due to injury Family history of colon cancer Seborrheic keratoses Cervical disc disease Cervical cord compression with myelopathy Painful neck Swallowing problem Chronic back pain Nonrheumatic mitral (valve) prolapse Essential (primary) hypertension Back pain Obstructive sleep apnea GERD (gastroesophageal reflux disease) Atherosclerosis of coronary artery of [place] heart without angina pectoris Hyperlipidemia Home Medications ?Medication ?Instructions ?Recorded ?Last Taken ?Type coenzyme Q94-X-bhbshzmry 100 mg-20 1 ea PO DAILY 03/2507/03/20 [...] do you feel safe at home: Yes Review of Systems (Anesthesia) ROS Narrative System reviewed and no additional complaints, except as documented. 01/14/25 6387 <Electronically signed by Colby Brito MD> Date _ Colby Brito MD Cosigner Signature: Date CC: ~ Signed [facility] Work Phone: 1(706) 306-984009-12-2025 Discharge summary Author Saman Muniz [facility] Note Date/Time January 14, 2025 4:34pm [facility] Medical Records Department [address] [place] [address] Emergency Department Summary 01/14/25 MR#: [id number] Acct: [id number] Name: ARTURO CORONADO Rep #:[id number] : 1945 79 From: Saman Muniz MD PCP: Dr. Gauri Vila, DO Status:[facility] ER Location: ED HPI History [...] Prior similar symptoms: Yes Recent Illness/Hospitalization: Yes [facility] Medical History Osteoarthritis of left knee Right shoulder strain Scabies Thyroid goiter Back pain due to injury Family history of colon cancer Seborrheic keratoses Cervical disc disease Cervical cord compression with myelopathy Painful neck Swallowing problem Chronic back pain Nonrheumatic mitral (valve) prolapse Essential (primary) hypertension Back pain Obstructive sleep apnea GERD (gastroesophageal reflux disease) Atherosclerosis of coronary artery of [place] heart without angina pectoris Hyperlipidemia Home Medications ?Medication ?Instructions ?Recorded ?Last Taken ?Type coenzyme U85-I-nxabpoxfs 100 mg-20 1 ea PO DAILY 03/2507/03/20 [...] safe at home: Yes ROS ROS ED Constitutional Constitutional ED: Denies chills, fever(s), [...] 78.4 H Lymph % (Auto) 11.4 L Cheatham % (Auto) 8.8 Eos % (Auto) 0.4 [...] tab PO DAILY Patient Comments: Vitamins coenzyme W43-Z-vybwwzeya 1 EACH capsule 1 ea PO DAILY [...] Primary Care Provider: Gauri Vila Print Language: Sudanese What to do if you have Problems For any increased pain, shortness of breath, bleeding, nausea or vomiting, chest pain, or any unexpected problems, contact your Primary Care Provider. Call [facility] ([phone]) or report to the closest Emergency Room. Call 911 if necessary. 01/14/25 1634 <Electronically signed by Saman Muniz MD> Cosigner Signature (if applicable): CC: Dr. Gauri Vila, DO ~ Signed [facility] Work Phone: [phone]) 634-302409-12-2025 Consult note [facility] Medical Records Department [address] [place] [address] Anesthesia Postop Eval I 01/14/251811 MR#: [id number] Acct: [id number] Name: ARTURO CORONADO P Rep #:[id number] : 1945 79 From: Andria Echeverria BRICKLAYER PCP: Dr. Gauri Vila, DO Status:AD M PATRICE Y Race: C Location: MS3 Anesthesia: Postop Eval I Current Vital Signs Temperature: 97.1 F Pulse Rate: 86 Blood Pressure: 148/80 Respiratory Rate: 16 Pulse Ox: 94 Assessment Airway patent: Yes Spontaneous unlabored respirations: Yes nausea: No Vomiting: No Anesthesia Complication: No Fluid Hydration Crystalloid volume administer (ml): 1,000 Total IV fluid infused: 1,000 Progress Note Anesthesia document: Postop Eval 1 completed: Yes 01/14/251813 a BRICKLAYER> Date _ Andria Echeverria BRICKLAYER Cosigner Signature: Date CC: ~ Signed [facility]09-12-2025 Consult note [facility] Medical Records Department [address] [address] Anesthesia Postop Eval II 01/14/251813 MR#: [id number] Acct: [id number] Name: ARTURO CORONADO P Rep #:[id number] : 1945 79 From: Andria Echeverria BRICKLAYER PCP: Dr. Gauri Vila, DO Status:AD M PATRICE Y Race: C Location: MS3 MS - Anesthesia Postop Eval I Sum Postop Eval Completion status Anesthesia document: Postop Eval 1 completed: Yes Anesthesia Postop Eval I Summary Anesthesia Postop Eval I Summary: Anesthesia Postop Eval I: Assessment Summary Airway patent Yes 01/14/25 18:12 [email or web address] Spontaneous unlabored Yes 01/14/25 18:12 [email or web address] respirations Mental status nausea No 01/14/25 18:12 [email or web address] Vomiting No 01/14/25 18:12 [email or web address] Anesthesia Postop Eval I: Fluid Summary Crystalloid volume administer 1,000 01/14/25 18:12 [email or web address] (ml) Colloids volume administered ( ml) Blood Product volume administered (ml) Total IV fluid infused 1,000 01/14/25 18:12 [email or web address] Anesthesia Postop Eval I: Summary Notes Anesthesia Complication No 01/14/25 18:12 [email or web address] Anesthesia Complication Comment: Post-operative progress note Anesthesia: Postop Eval II Evaluation Mental status: Awake Pain Level: 0 nausea: No Vomiting: No 01/14/25 1814 a BRICKLAYER> Date _ Andria Echeverria BRICKLAYER Cosigner Signature: Date CC: ~ Signed [facility]09-12-2025 Procedure note [facility] Medical Records Department [address] [place] [address] Operative Report 01/14/25 1803 MR#: [id number] Acct: [id number] Name: ARTURO CORONADO Reén Rep #:[id number] : 1945 79 From: Spenser Winston MD PCP: Dr. 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 Type of Anesthesia: General RN Documented Start/Stop Times: Operation Date: 01/14/25 17:10 Case Time Into Pre-Op 01/14/25 16:45 Out of Pre-Op 01/14/25 16:51 Anesthesia Start 01/14/25 16:53 Into Room 01/14/25 16:53 Procedure Start 01/14/25 17:06 Procedure End 01/14/25 18:01 Anesthesia End 01/14/25 18:03 Out of Room 01/14/25 18:03 Procedure Start Time: 17:06 Procedure Stop Time: 18:04 Select all DRAINS/GRAFTS/IMPLANTS that apply: Drains Drain details: 22 Spanish three-way Lin Estimated Blood Loss: Minimal Specimen collected: No Description of surgery: In the preoperative setting I discussed with the patient how the surgery would be done with expect afterwards. We discussed how a prostate resection is done and we discussed the risk of the surgery including, bleeding, infection, retrograde ejaculation, changes with ejaculation or intercourse,. We discussed the possibility that the resection of the prostate may not alleviate his urinarysymptoms. We discussed the small risk of developing scar tissue along the urethral channel and strictures. We also discussed the chance of the prostate could grow back and he may need further surgery or treatment in the future for prostate problems. Patient was taken back to the operating room, timeout procedure was performed, he was identified and marked and placed on the operating room table. He underwent general anesthesia. He was placed in dorsolithotomy position. Penis and testicles were prepped and draped in usual sterile fashion. Went into the bladder using the visual obturator with a resectoscope. Once inside the bladderidentified the right and left ureteral orifice. I then identified the prostate and the anatomy of the prostate. Imarked out the area of the sphincter and theverumontanum was identified. I then proceeded with the prostate resection firstresected the median lobe. And then resected the right lobe of the prostate. Then to resect the left lobe of the prostate. I then resected the apical tissueof the prostate. Thiswas a complete resection of all obstructive tissue to improve voiding and relieve obstruction. I then made sure that there was no injury to the sphincter or the verumontanum was still intact. At the end of theresection all the chips were Ellik out of the bladder. I then identified the left and right ureteral orifice and these were confirmed to be in good position and effluxing and not injured. The resectoscope was removed, a 22 Spanish catheter was placed into the bladder on continuous irrigation. And the urine was fairly light pink color and draining normally. He was taken back to the PACU ingood condition. CPT 00129 Surgical Findings: Obstructive prostate resected Complications Complications: No Admit VTE Documentation VTE Present on Admission: No VTE Mechan Device Prophylaxis: SCD's VTE Pharm Prophylaxis ordered?: No 01/14/25 4724 Cosigner Signature (if applicable): CC: Dr. Gauri Vila, DO; Dr. Spenser Winston MD~ Signed [facility]09-12-2025 History and physical note [facility] Medical Records Department [address] [place] [address] History & Physical Exam 01/14/25 1650 MR#: [id number] Acct: [id number] Name: ARTURO CORONADO Rep #:[id number] : 1945 79 From: Spenser Winston MD PCP: Dr. Gauri Vila DO Status:[facility] Location: [facility] HPI - General General Date of Service: 01/14/25 HPI Narrative ARTURO CORONADO, is a 79 M who presents to the ER with retention of urine he is got a Lin catheter plain having severe pain from the Lin catheter and the sides and the desires to have something done he has been off Plavix for 3 days I discussed with him the risk of bleeding he wants to have procedure done so he can urinate he has failed a voiding trial already so organ to proceed with a TURP today. [facility] Medical History Osteoarthritis of left knee Right shoulder strain Scabies Thyroid goiter Back pain due to injury Family history of colon cancer Seborrheic keratoses Cervical disc disease Cervical cord compression with myelopathy Painful neck Swallowing problem Chronic back pain Nonrheumatic mitral (valve) prolapse Essential (primary) hypertension Back pain Obstructive sleep apnea GERD (gastroesophageal reflux disease) Atherosclerosis of coronary artery of [place] heart without angina pectoris Hyperlipidemia Home Medications ?Medication ?Instructions ?Recorded ?Last Taken ?Type coenzyme Y67-Q-qrgxgnuil 100 mg-20 1 ea PO DAILY 03/2507/03/20 [...] Reaction Status Date / Time niacin (From Niajonathanan Allergy Extreme Verified 01/14/25 14:04 Extended-Release) Itching [...] do you feel safe at home: Yes Vital Signs Vital Signs Vital Signs: 01/14/25 14:04 01/14/25 15:33 01/14/25 16:00 Temperature 98.4 F Temperature Source Temporal Pulse Rate 68 69 88 Respiratory Rate 18 16 16 Blood Pressure 165/86 H 155/70 H 138/70 H Blood Pressure Mean 112 98 92 Pulse Ox 98 100 98 Oxygen Delivery Method Room Air 01/14/25 16:35 01/14/25 16:47 Temperature 98.3 F 98.3 F Temperature Source Pulse Rate 88 88 Respiratory Rate 16 16 Blood Pressure 138/70 H 138/70 H Blood Pressure Mean 92 Pulse Ox 98 98 Oxygen Delivery Method Results Lab / Micro Data 01/14/25 15:30 01/14/25 15:30 Labs: Laboratory Results - last 24 hr 01/14/25 15:30: WBC 10.0, RBC 5.11, Hgb 15.5, Hct 45.5, MCV 89.0, MCH 30.3, MCHC34.1, RDW Std Deviation 41.6, RDW Coeff of Leeroy 12.6, Plt Count 262, MPV 9.9, Immature Gran % (Auto) 0.600, Neut % (Auto) 78.4 H, Lymph % (Auto) 11.4 L, Cheatham % (Auto) 8.8, Eos % (Auto) 0.4, Baso % (Auto) 0.4, Absolute Neuts (auto) 7.8 H, Absolute Lymphs (auto) 1.14, Nucleated RBC % 0, Sodium 133, Potassium 4.1, Chloride 98, Carbon Dioxide 20.0 L, Anion Gap 15, BUN 15, Creatinine 0.96, Est GFR (MDRD) Non-Af 82, BUN/Creatinine Ratio 15.2, Glucose 122 H, Calcium 9.4, Ethyl Alcohol < 10.1 01/14/25 1650 Cosign Signature (if applicable): CC: Dr. Gauri Vila, DO; Dr. Spenser Winston MD~ Signed [facility]09-12-2025 [facility] Medical Records Department [address] [place] [address] History Physical Exam 01/14/25 1650 MR#: [id number] Acct: [id number] Name: ARTURO CORONADO Rep #: [id number] : 1945 79 From: Spenser Winston MD PCP: Dr. Gauri Vila, DO Status:REG [facility] Location: [facility] HPI - General General Date of Service: 01/14/25 HPI Narrative ARTURO CORONADO, is a 79 M who presents to the ER with retention of urine he is got a Lin catheter plain having severe pain from the Lin catheter and the sides and the desires to have something done he has been off Plavix for 3 days I discussed with him the risk of bleeding he wants to have procedure done so he can urinate he has failed a voiding trial already so organ to proceed with a TURP today. [facility] Medical History Osteoarthritis of left knee Right shoulder strain Scabies Thyroid goiter Back pain due to injury Family history of colon cancer Seborrheic keratoses Cervical disc disease Cervical cord compression with myelopathy Painful neck Swallowing problem Chronic back pain Nonrheumatic mitral (valve) prolapse Essential (primary) hypertension Back pain Obstructive sleep apnea GERD (gastroesophageal reflux disease) Atherosclerosis of coronary artery of [place] heart without angina pectoris Hyperlipidemia Home Medications ???Medication ???Instructions ???Recorded ???Last Taken ???Type coenzyme X70-N-diimgxieu 100 mg-20 1 ea PO DAILY 03/25/13 07/03/20 History mg capsule multivitamin with folic acid 400 1 tab PO DAILY 03/25/13 07/03/20 H istory mcg tablet omega-3 fatty acids 1,000 mg 1,000 mg PO DAILY 08/20/18 1 History capsule aspirin 81 mg chewable tablet 81 mg PO DAILY #90 tabs 08/15/20 0 11/19/21 Rx nitroglycerin 0.4 mg sublingual 0.4 mg sublingual Q5-15M PRN chest 07/04/23 Unknown Rx tablet (Nitrostat) pain #25 tabs magnesium 200 mg tablet 200 mg PO QDAY 01/13/24 Unknown Hi story pregabalin 50 mg capsule 50 mg PO QHS PRN neck pain #90 cap s 02/05/24 Unknown Rx lisinopril 10 mg tablet 10 mg PO BID #180 tabs 06/02/24 Un known Rx atorvastatin 80 mg tablet See Rx Instructions .Route 5 Unknown Rx .COMPLEX #90 tabs metoprolol tartrate 50 mg tablet 50 mg PO BID #180 tabs 07/26/24 Un known Rx clopidogrel 75 mg tablet See Rx Instructions .Route 5 Unknown Rx .COMPLEX #90 tabs amlodipine 2.5 mg tablet 2.5 mg PO DAILY #90 tabs 10/18/24 Unknown Rx Allergy/AdvReac Type Severity Reaction Status [...] do you feel safe at home: Yes Vital Signs Vital Signs Vital Signs: 01/14/25 14:04 01/14/25 15:33 01/14/25 16:00 Temperature 98.4 F Temperature Source Temporal Pulse Rate 68 69 88 Respiratory Rate 18 16 16 Blood Pressure 165/86 H 155/70 H 138/70 H Blood Pressure Mean 112 98 92 Pulse Ox 98 100 98 Oxygen Delivery Method Room Air 01/14/25 16:35 01/14/25 16:47 Temperature 98.3 F 98.3 F Temperature Source Pulse Rate 88 88 Respiratory Rate 16 16 Blood Pressure 138/70 H 138/70 H Blood Pressure Mean 92 Pulse Ox 98 98 Oxygen Delivery Method Results Lab / Micro Data 01/14/25 15:30 01/14/25 15:30 Labs: Laboratory Results - last 24 hr 01/14/25 15:30: WBC 10.0, RBC 5.11, Hgb 15.5, Hct 45.5, MCV 89.0, MCH 30.3, MCHC 34.1, RDW Std Deviation 41.6, RDW Coeff of Leeroy 12.6, Plt Count 262, MPV 9.9, Immature Gran % (Auto) 0.600, Neut % (Auto) 78.4 H, Lymph % (Auto) 11.4 L, Cheatham % (Auto) 8.8, Eos % (Auto) 0.4, Baso % (Auto) 0.4, A bsolute Neuts (auto) 7 (more content not included)...[facility] 01-14-2025 Consult note [facility] Medical Records Department [address] [place] [address] Pre-Anesthesia Evaluation 01/14/25 1645 MR#: [id number] Acct: [id number] Name: ARTURO CORONADO Rep #:[id number] : 1945 79 From: Colby Brito MD PCP: Dr. Gauri Vila, DO Status:RE G [facility] Y Race: C Location: [facility] ASA Classification* ASA Classification ASA Classification: 2 and E Assessment & Plan Anesthesia* Anesthesia Assessment Anesthesia Assessment: Discussed sedation and/or anesthesia options, risks, benefits, and alternatives with patient/parents/legal guardian/POA. Questions invited. The patient/parents/legal guardian/POA seems to understand and agrees to proceedwith anesthesia plan. Reviewed the physical assessment, medical history, allergy history and patient home medications list prior to surgery/procedure/anesthetic and documented any changes. Performed airway and anesthesia risk assessments. Anesthesia Type Anesthesia Type: General Anesthesia Focused Assessment* Temperature: 98.3 F Pulse Rate: 88 Blood Pressure: 138/70 Respiratory Rate: 16 Pulse Ox: 98 Airway Assessment Mouth opens: >3 cm Mallampati Score: II Labs Anesthesia Preop lab: CBC WBC 10.0 K/mm3 (4.4-11.0) 01/14/25 15:30 01/14/25 RBC 5.11 M/mm3 (4.6-6.2) 01/14/25 15:30 01/14/25 Hgb 15.5 g/dL (13.0-16.5) 01/14/25 15:30 01/14/25 Hct 45.5 % (40-54) 01/14/25 15:30 01/14/25 Plt Count 262 K/mm3 (150-450) 01/14/25 15:30 01/14/25 CHEMISTRY Potassium 4.1 mmol/L (3.3-5.1) 01/14/25 15:30 01/14/25 Sodium 133 mmol/L (133-145) 01/14/25 15:30 01/14/25 Phosphorus 3.4 mg/dL (2.5-4.9) 02/08/14 11:39 02/08/14 BUN 15 mg/dL (4-19) 01/14/25 15:30 01/14/25 Creatinine 0.96 mg/dL (0.70-1.20) 01/14/25 15:30 01/14/25 Glucose 122 mg/dL (70-99) H 01/14/25 15:30 01/14/25 TSH 2.43 uIU/mL (0.358-3.74) 07/11/23 09:52 COAG PT 13.3 SECONDS (11.7-14.9) 11/14/21 09:17 Pre-Assessment Diagnosis/Proposed Procedure Planned Operative Procedure(s): turp Anesthesia History 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 When Was Last Pacemaker Check QUESTION #4 FULL TEXT: You/Your Family Experience fever (hyperthermia) with Anesthesia Last Oral Intake Last Oral intake: Last Oral Intake NPO since Meds taken in AM with sips of water? Meds patient instructed to take am of surgery PONV PONV - track equipment operator: PONV - track equipment operator Female HX of Motion Sickness HX of N/V After Surgery Non-Smoker Duration of Surgery greater than 60 minutes Number of Risk Factors PONV Score Height & Weight Height & Weight: Anesthesia: Height & Weight Height 5 ft 11 in 01/14/25 14:04 Respiratory Assessment Respiratory Assessment - track equipment operator: Respiratory Tract Infection Hx - track equipment operator Hx Respiratory Tract Infection No 10/02/23 13:34 STOP Sleep Apnea STOP Sleep Apnea - track equipment operator: STOP Sleep Apnea - track equipment operator Hx Hypertension Yes 10/02/23 13:34 Hx Sleep Apnea No 10/02/23 13:34 CPAP No 10/02/23 13:34 BIPAP No 10/02/23 13:34 Do you snore loudly (louder than talking or can be heard Do you often feel tired/ fatigued/ sleepy during daytime? Has anyone observed you stop breathing during sleep? STOP Results QUESTION #5 FULL TEXT : Do you snore loudly (louder than talking or can be heard through closeddoors)? 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 Specify any problems Hx of Preganancy in last 3 Months Nurse Filling Out Transfusion & Questions: Date: Time: Patient unable to answer at this time (ie. confused, unrespo /Reproduction History /Reproductive History - track equipment operator: /Reproductive Hx- track equipment operator Hx Now Gestational Age (in weeks): EDC: Hx Hx Para Hx Section [facility] History Osteoarthritis of left knee Right shoulder strain Scabies Thyroid goiter Back pain due to injury Family history of colon cancer Seborrheic keratoses Cervical disc disease Cervical cord compression with myelopathy Painful neck Swallowing problem Chronic back pain Nonrheumatic mitral (valve) prolapse Essential (primary) hypertension Back pain Obstructive sleep apnea GERD (gastroesophageal reflux disease) Atherosclerosis of coronary artery of [place] heart without angina pectoris Hyperlipidemia Home Medications ?Medication ?Instructions ?Recorded ?Last Taken ?Type coenzyme I61-K-ulwsfqvdb 100 mg-20 1 ea PO DAILY 03/2507/03/20 [...] do you feel safe at home: Yes Review of Systems (Anesthesia) ROS Narrative System reviewed and no additional complaints, except as documented. 01/14/25 1647 MD> Date _ Colby Brito MD Cosigner Signature: Date CC: ~ Signed [facility]09-12-2025 Discharge summary [facility] Medical Records Department [address] [place] [address] Emergency Department Summary 01/14/25 MR#: [id number] Acct: [id number] Name: ARTURO CORONADO Rep #:[id number] : 1945 79 From: Saman Muniz MD PCP: Dr. Gauri Vila, DO Status: G ER Location: ED HPI History of [...] Prior similar symptoms: Yes Recent Illness/Hospitalization: Yes [facility] Medical History Osteoarthritis of left knee Right shoulder strain Scabies Thyroid goiter Back pain due to injury Family history of colon cancer Seborrheic keratoses Cervical disc disease Cervical cord compression with myelopathy Painful neck Swallowing problem Chronic back pain Nonrheumatic mitral (valve) prolapse Essential (primary) hypertension Back pain Obstructive sleep apnea GERD (gastroesophageal reflux disease) Atherosclerosis of coronary artery of pilot [place] heart without angina pectoris Hyperlipidemia Home Medications ?Medication ?Instructions ?Recorded ?Last Taken ?Type coenzyme O26-J-szhbiyxjr 100 mg-20 1 ea PO DAILY 03/2507/03/20 [...] safe at home: Yes ROS ROS ED Constitutional Constitutional ED: Denies chills, fever(s), [...] 78.4 H Lymph % (Auto) 11.4 L [place] % (Auto) 8.8 Eos % (Auto) 0.4 [...] tab PO DAILY Patient Comments: Vitamins coenzyme M19-M-jojibkibv 1 EACH capsule 1 ea PO DAILY [...] 90 0RF Primary Care Provider: Gauri Vila Language: Sudanese What to do if you have Problems For any increased pain, shortness of breath, bleeding, nausea or vomiting, chest pain, or any unexpected problems, contact your Primary Care Provider. Call [facility] ([phone]) or report to the closest Emergency Room. Call 911 if necessary. 01/14/25 2853 Cosigner Signature (if applicable): CC: Dr. Gauri Vila, DO ~ Signed [facility]09-12-2025 Discharge summary Author Saman Muniz [facility] Note Date/Time January 14, 2025 4:34pm [facility] Medical Records Department [address] [place] [address] Emergency Department Summary 01/14/25 MR#: [id number] Acct: [id number] Name: ARTURO CORONADO Rep #:[id number] : 1945 79 From: Saman Muniz MD PCP: Dr. Gauri Vila, Status:RE G ER Location: ED HPI History [...] Prior similar symptoms: Yes Recent Illness/Hospitalization: Yes [facility] Medical History Osteoarthritis of left knee Right shoulder strain Scabies Thyroid goiter Back pain due to injury Family history of colon cancer Seborrheic keratoses Cervical disc disease Cervical cord compression with myelopathy Painful neck Swallowing problem Chronic back pain Nonrheumatic mitral (valve) prolapse Essential (primary) hypertension Back pain Obstructive sleep apnea GERD (gastroesophageal reflux disease) Atherosclerosis of coronary artery of pilot [place] heart without angina pectoris Hyperlipidemia Home Medications ?Medication ?Instructions ?Recorded ?Last Taken ?Type coenzyme U14-O-dpuvuyswc 100 mg-20 1 ea PO DAILY 03/2507/03/20 [...] safe at home: Yes ROS ROS ED Constitutional Constitutional ED: Denies chills, fever(s), [...] 78.4 H Lymph % (Auto) 11.4 L [place] % (Auto) 8.8 Eos % (Auto) 0.4 [...] tab PO DAILY Patient Comments: Vitamins coenzyme R23-G-vesekmkal 1 EACH capsule 1 ea PO DAILY [...] 90 0RF Primary Care Provider: Gauri Vila Language: Sudanese What to do if you have Problems For any increased pain, shortness of breath, bleeding, nausea or vomiting, chest pain, or any unexpected problems, contact your Primary Care Provider. Call [facility] ([phone]) or report to the closest Emergency Room. Call 911 if necessary. 01/14/25 6466 <Electronically signed by Saman Muniz MD> Cosigner Signature (if applicable): CC: Dr. Gauri Vila, DO ~ Signed [facility] Work Phone: 1(673) 225-126107-09-2025 [facility] [address] [place], [place] [address] OFFICE VISIT Date of Service: 11/10/24 MR#: [id number] Acct: [id number] Name: ARTURO CORONADO Rep #: [id number] : 1945 Provider: SEGUN Garcia Age/Sex: 79/M Location: [facility] Status: Signed HPI HPI History of [...] Monitor Intake Visit Reasons: 4 M FU School Lunch Monitor Required: No Accompanied by: Self Is patient in pain?: No Allergies niacin (From Niaspan Extended-Release) Allergy (Verified 11/10/24 14:59) Extreme Itching cyclobenzaprine Adverse Reaction (Unknown, Verified 11/10/24 14:59) Heart feels like wants to stop Medications ?Medication ?Instructions ?Recorded ?Confirmed ?Type coenzyme J64-X-zvzuvdkkl 100 mg-20 1 ea PO DAILY 03/2511/10/24 [...] (slipped on ice in driveway) [facility] Medical History Osteoarthritis of left knee Right shoulder strain Scabies Thyroid goiter Back pain due to injury Family history of colon cancer Seborrheic keratoses Cervical disc disease Cervical cord compression with myelopathy Painful neck Swallowing problem Chronic back pain Nonrheumatic mitral (valve) prolapse Essential (primary) hypertension Back pain Obstructive sleep apnea GERD (gastroesophageal reflux disease) Atherosclerosis of coronary artery of pilot station heart without angina pectoris Hyperlipidemia Surgical History [...] coronary artery stent placement: Status: Resolved Comment: HRK-QBP-Lmwy LAD and POBA-D1 05/16/2010 Plan: Stable, patient does not have any symptoms of angina. Did review heart cath [id number]. We will continue with current medical management. If he has any chest pain that is concerning he will go to the ER. 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 Gauri Vila, DO ~ [facility]07-09-2025 Progress note Author Carmen Garcia [facility] Note Date/Time November 10, 2024 3:33p amanda [facility] [address] [place] [address]. [address] [place] [address] OFFICE VISIT Date of Service: 11/10/24 MR#: [id number] Acct: [id number] Name: ARTURO CORONADO Rep #: [id number] : 1945 Provider: SEGUN Garcia Age/Sex: 79/M Location: [facility] Status: Signed HPI HPI History of [...] Monitor Intake Visit Reasons: 4 M FU School Lunch Monitor Required: No Accompanied by: Self Is patient in pain?: No Allergies niacin (From Niaspan Extended-Release) Allergy (Verified 11/10/24 14:59) Extreme Itching cyclobenzaprine Adverse Reaction (Unknown, Verified 11/10/24 14:59) Heart feels like wants to stop Medications ?Medication ?Instructions ?Recorded ?Confirmed ?Type coenzyme F57-G-ljtvtnegg 100 mg-20 1 ea PO DAILY 03/2511/10/24 [...] mg tablet 200 mg PO QDAY 01/13/24 0701/27 History pregabalin 50 mg capsule 50 mg [...] (slipped on ice in driveway) [facility] Medical History Osteoarthritis of left knee Right shoulder strain Scabies Thyroid goiter Back pain due to injury Family history of colon cancer Seborrheic keratoses Cervical disc disease Cervical cord compression with myelopathy Painful neck Swallowing problem Chronic back pain Nonrheumatic mitral (valve) prolapse Essential (primary) hypertension Back pain Obstructive sleep apnea GERD (gastroesophageal reflux disease) Atherosclerosis of coronary artery of pilot station heart without angina pectoris Hyperlipidemia Surgical History [...] coronary artery stent placement: Status: Resolved Comment: WLS-UQW-Ydqh LAD and POBA-D1 05/16/2010 Plan: Stable, patient does not have any symptoms of angina. Did review heart cath [id number]. We will continue with current medical management. If he has any chest pain that is concerning he will go to the ER. 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 Gauri Vila, DO ~ [facility] Work Phone: 1(826) 296-154907-07-2025 [facility] [address] [place] [address] OFFICE VISIT Date of Service: 11/08/24 MR#: [id number] Acct: [id number] Name: ARTURO CORONADO René Rep #: [id number] : 1945 Provider: Dr. Tristen Person MD Age/Sex: 79/M Location: [facility] Status: Signed Intake Vital Signs 10/12/24 14:20 [...] Medications ?Medication ?Instructions ?Recorded ?Confirmed ?Type coenzyme V46-L-erwmhymiz 100 mg-20 1 ea PO DAILY 03/2511/08/24 [...] in the past year?: Yes [facility] Medical History Osteoarthritis of left knee Right shoulder strain Scabies Thyroid goiter Back pain due to injury Family history of colon cancer Seborrheic keratoses Cervical disc disease Cervical cord compression with myelopathy Painful neck Swallowing problem Chronic back pain Nonrheumatic mitral (valve) prolapse Essential (primary) hypertension Back pain Obstructive sleep apnea GERD (gastroesophageal reflux disease) Atherosclerosis of coronary artery of pilot station heart without angina pectoris Hyperlipidemia Surgical History [...] made by me, Dr. Sherie MD 11/08/24 4367. Part of today?s visit was documented by [ ], acting as scribe. ARTURO CORONADO is a 79 year old M here today for L knee OA, euflexxa 3/. He hadsome bleeding last time he is [...] Performing Provider: Edwar Person MD Performing Location: [facility] Administered by: Edwar Person MD on 11/08/24 13:41 Dose Route Admin Location Dispensed Lot Number Expiration Date NDC Server Systems Administrator 10 mg intra-articular left knee 2 mL [id number] 03/08/25 [address]-5 [facility] Coding Level of Care Code Attention General Helper Diagnoses Osteoarthritis of left knee M17.12 Comment [...] 11/08/24 1358 n > Date _ Edwar Mcdonough Signature: Date (if applicable) CC: ~ [facility]06-23-2025 [facility] [place] [address] OFFICE VISIT Date of Service: 10/25/24 MR#: [id number] Acct: [id number] Name: ARTURO CORONADO Rep #: [id number] : 1945 Provider: Dr. Tristen Person MD Age/Sex: 79/M Location: [facility] Status: Signed Intake Vital Signs 10/12/24 14:20 [...] Medications ?Medication ?Instructions ?Recorded ?Confirmed ?Type coenzyme R35-C-xlggacgbn 100 mg-20 1 ea PO DAILY 03/2510/25/24 [...] reflux disease) Atherosclerosis of coronary artery of pilot station heart without angina pectoris Hyperlipidemia Surgical History [...] Performing Provider: Edwar Person MD Performing Location: [facility] Administered by: Edwar Person MD on 10/25/24 13:49 Dose Route Admin Location Dispensed Lot Number Expiration Date NDC Server Systems Administrator 20 mg intra-articular Left knee 2 mL [id number] 03/08/25 [address]-1 [facility] Coding Level of Care Code [...] reducing pain. 3. Medications What they are: Kyrv-wha-nebkaha pain relievers like ibuprofen, naproxen, or acetaminophen. [...] Cosigner Signature: Date (if applicable) CC: ~ [facility]06-23-2025 Progress note Author Edwar Person [facility] Note Date/Time October 25, 2024 1:59 pm [facility] [address] [place] [address] OFFICE VISIT Date of Service: 10/25/24 MR#: [id number] Acct: [id number] Name: ARTURO CORONADO Rep #: [id number] : 1945 Provider: Dr. Tristen Person MD Age/Sex: 79/M Location: [facility] Status: Signed Intake Vital Signs 10/12/24 14:20 [...] Medications ?Medication ?Instructions ?Recorded ?Confirmed ?Type coenzyme G08-X-lxkdgwzbw 100 mg-20 1 ea PO DAILY 03/2510/25/24 [...] reflux disease) Atherosclerosis of coronary artery of pilot [place] heart without angina pectoris Hyperlipidemia Surgical History [...] Performing Provider: Edwar Person MD Performing Location: [facility] Administered by: Edwar Person MD on 10/25/24 13:49 Dose Route Admin Location Dispensed Lot Number Expiration Date NDC Server Systems Administrator 20 mg intra-articular Left knee 2 mL [id number] 03/08/25 [address]-1 [facility] Coding Level of Care Code Attention General Helper Diagnoses Osteoarthritis of left knee M17.12 Comment [...] reducing pain. 3. Medications What they are: Yavh-kqe-hpvuoit pain relievers like ibuprofen, naproxen, or acetaminophen. [...] ecchymosis, No erythema and No swelling 10/25/24 6720 <Electronically signed by Edwar maldonado MD> Date _ Edwar Person MD Cosigner Signature: Date (if applicable) CC: ~ [facility] Work Phone: 1(148) 781-979306-10-2025 Evaluation note* Diagnosis Onset Date Resolution Status [...] May 16, 2010 resolved November 10 2:42pm [facility] Work Phone: 1([phone]) 252-761706-10-2025 Evaluation note* Diagnosis Onset Date Resolution Status [...] prostatic hyperplasia acute January 14, 2025 4:36pm [facility] Work Phone: 1(448) 535-347606-10-2025 Evaluation note* Diagnosis Onset Date Resolution Status [...] Antiplatelet or antithrombotic long-term use acute January 15, 2025 7:02pm Painful bladder spasm acute Sep tember 2024 7:02pm Situational depression acute Se ptember 2024 7:02pm Suicidal thoughts acute Septemb er 2024 7:02pm Urinary retention due to benign prostatic hyperplasia acute January 15, 2025 7:02pm [facility] Work Phone: 1(240) 586-757003-19-2025 Evaluation note* Diagnosis Onset Date Resolution Status [...] left knee acute November 08, 2024 1:35pm [facility] Work Phone: 1([phone]) 211-660203-19-2025 Evaluation note* Diagnosis Onset Date Resolution Status [...] May 16, 2010 resolved November 10 2:42pm [facility] Work Phone: 1(300) 806-411703-19-2025 Radiology Diagnostic study note [facility] Imaging Services [address] [place] [address] Knee 4 or More Views MR#: [id number] Acct: [id number] Name: ARTURO CORONADO René Rep #: [id number] : 1945 M 79 From: Helga Ferro MD PCP: Dr. Gauri Vila DO Status: RE G CLI Study:Knee 4 or More Views Date of Exam: 07/21/24 Exam# [id number] Ordering Dr: Do wander Vila DO PROCEDURE: [...] internal derangement, recommend CT/MRI, asindicated. Reading Location: [facility] CC: Dr. Gauri Vila DO ~ Filament Maker: Signed [facility]03-05-2025 Evaluation note* Diagnosis Onset Date Resolution Status Admit Date Essential (primary) hypertension chronic July 07, 2024 2:14pm Hyperlipidemia chronic July 07, 2024 2:14pm Nonrheumatic mitral (valve) prolapse July 07, 2024 2:14pm History of coronary artery stent placement May 16, 2010 resolved July 07 2:14pm Knee pain, left acute July 3:12pm Chronic pruritus chronic July 212024 3:12pm Carpal tunnel syndrome of right wrist acute September 01, 2024 10:41am Knee pain, left acute August 10:41am Carpal tunnel syndrome of right wrist acute October 12, 2024 2:14pm [facility] Work Phone: 1(761) 767-899803-05-2025 Evaluation note* Diagnosis Onset Date Resolution Status [...] left knee acute October 25, 2024 1:33pm [facility] Work Phone: 1([phone]) 202-309203-05-2025 Evaluation note* Diagnosis Onset Date Resolution Status [...] left knee acute November 01, 2024 1:37pm [facility] Work Phone: [phone] Evaluation note* Diagnosis Onset Date Resolution Status Admit Date Gastrocnemius strain, left acute April 14, 2024 4:20pm Essential (primary) hypertension chronic July 07, 2024 2:14pm Hyperlipidemia chronic July 07, 2024 2:14pm Nonrheumatic mitral (valve) prolapse chronic July 07, 2024 2:14pm History of coronary artery stent placement May 16, 2010 resolved July 07 2:14pm [facility] Work Phone: 1(250) 607-895912-11-2024 Evaluation note* Diagnosis Onset Date Resolution Status [...] 3:12pm Chronic pruritus chronic July 212024 3:12pm [facility] Work Phone: 1(976) 476-212011-30-2024 NoteHNO ID: [id number] Author: MANDY LAZARO PA-C Service: ? Author Type: Physician Canopy Stringer Type: Progress Notes Filed: 04/03/2024 09:59 Note Text: This note was created using NoteWriter. Subjective Arturo Coronado is a 79 year [...] the emergency department. He will go to [facility] across the street. 2. History of DVT (deep vein thrombosis) - ICD9: V12.51, ICD10: Z86.718 [facility] History of Present illness Narrative* Mandy Lazaro PA-C - 04/03/2024 9:53 AM EST This note was created using Evento Social Promotionriter. Subjective Arturo Coronado is a 79 year [...] to the emergency department.He will go to [facility] across the street. 2. History of DVT (deep vein thrombosis) - ICD9: V12.51, ICD10: Z86.718 Mandy Lazaro PA-C documented [facility] History of Present illness Narrative* Bib Haque MD - 07/15/2023 2:22 PM EDT Images from the original note were not included. Patient ID: Arturo Coronado is a 78 y.o. male Subjective: Arturo Coronado is a 78 y.o. male who returns to our office for follow up of: multinodular goiter. Patient status post FNA biopsy of bilateral nodules 11/15/11 at [facility]. Mr. Coronado is a 75-year-old male patient has a history of multinodular goiter which was biopsied backin November 2011, found to be benign. He was last seen here in August, and is here for 3-year follow-up. He had an ultrasound done at [facility] on 07/10/23 along with TFTs. Results [...] 1.29, FT4--1.13 11/15/11: (FNA biopsies done at [facility], likely by Dr. Ratliff) A. THYROID [...] doppler flow. 04/09/17 thyroid ultrasound performed at [facility] Comparison: 03/29/16 Right lobe: 1.5 x [...] their small size. 07/10/2023 Ultrasound of thyroid [facility] Comparison 08/16/2020 Findings: Left thyroid lobe [...] in this encounter. Electronically signed by Bib Haque MD 07/15/23 3:03 PM documented in this [id number] History of Present illness Narrative* Bib Haque MD - 07/08/2023 8:47 AM EST Pt requests follow up appt. Will order ultrasound and TFTs, and follow up appt after testing. CD documented in this [id number] History of Present illness Narrative* Bib Haque MD - 08/23/2020 12:58 PM EDT Patient ID: Arturo Coronado is a 75 y.o. male Subjective: Arturo Coronado is a 75 y.o. male who returns to our office for follow up of: multinodular goiter. Patient status post FNA biopsy of bilateral nodules 11/15/11 at [facility]. Mr. Coronado is a 75-year-old male patient has a history of multinodular goiter which was biopsied backin November 2011, found to be benign. He was last seen here in August, and is here for 2-year follow-up. He had an ultrasound done at [facility] on 08/16/2020 along with TFTs. Results [...] 1.29, FT4--1.13 11/15/11: (FNA biopsies done at [facility], likely by Dr. Ratliff) A. THYROID [...] doppler flow. 04/09/17 thyroid ultrasound performed at [facility] Comparison: 03/29/16 Right lobe: 1.5 x [...] in this encounter. Electronically signed by Bib Haque MD 08/23/20 3:03 PM documented in this encounterOhioHealthEvaluation note* Diagnosis Nontoxic multinodular goiter- Primary [facility] encounter [facility]* Diagnosis Nontoxic multinodular goiter- Primary [facility]* Diagnosis Onset Date Resolution Status Carpal tunnel syndrome of right wrist acute Constipation by delayed colonic transit acute Family history of colon cancer acute Atherosclerosis of coronary artery of pilot [place] heart without angina pectoris chronic Essential (primary) hypertension chronic Hyperlipidemia chronic Nonrheumatic mitral (valve) prolapse chronic [facility] Work Phone: Evaluation note* Diagnosis Onset Date Resolution Status Carpal tunnel syndrome of right wrist acute Constipation by delayed colonic transit acute Family history of colon cancer acute Atherosclerosis of coronary artery of pilot [place] heart without angina pectoris chronic Essential (primary) hypertension chronic Hyperlipidemia chronic Nonrheumatic mitral (valve) prolapse chronic Carpal tunnel syndrome of right wrist acute [facility] Work Phone: Evaluation note* Diagnosis Onset Date Resolution Status Atherosclerosis of coronary artery of pilot [place] heart without angina pectoris chronic Essential (primary) hypertension chronic Hyperlipidemia chronic Nonrheumatic mitral (valve) prolapse chronic Carpal tunnel syndrome of right wrist acute Back pain due to injury acut e Carpal tunnel syndrome of right wrist acute Rotator cuff injury noneacti ve Chest pain acute Essential (primary) hypertension chronic Hyperlipidemia chronic Nonrheumatic mitral (valve) prolapse chronic [facility] Work Phone: Evaluation note* Diagnosis Onset [...] Skin lesion of right external ear acute [facility] Work Phone: Evaluation note* Diagnosis Onset Date Resolution Status Cervical disc disease chroni c Essential (primary) hypertension chronic Scabies acute Scabies acute Cervical disc disease chroni c Hypertension chronic [facility] Work Phone: Evaluation noteNo assessment information available [facility] Work Phone: Evaluation note* Diagnosis Onset Date Resolution Status Cervical disc disease chroni c Hypertension chronic Acute upper respiratory infection acute Cervical disc disease chroni c Essential (primary) hypertension chronic Right shoulder strain acute [facility] Work Phone: Evaluation note* Diagnosis Onset [...] chronic History of coronary artery stent placement May, 2010 resolved [facility] Work Phone: Evaluation note* Diagnosis Goiter, nontoxic, multinodular- Primary Nontoxic multinodular goiter [facility] Diagnosis Goiter, nontoxic, multinodular- Primary Nontoxic multinodular goiter [facility]* Diagnosis Left leg pain- Primary Pain in limb History of DVT (deep vein thrombosis) Personal history of venous thrombosis and embolism [facility] Work Phone: [facility] Work Phone: [facility] Work Phone: Hospital Discharge instructions Additional Instructions Please continue your medications as directed by your family doctor but discussed with him about increasing your lisinopril or adding a third blood pressure medication for stricter blood pressure control and return to the ER should you have any further concernsWOhio [facility] Work Phone: Hospital Discharge instructionsAdditional Instructions Please continue all the medication given to you by your urologist. Keep the catheter in place and follow-up with the urologist to discuss removal. Return to the ER should you have any further concernsWOhio [facility] Work Phone: Progress note Author Edwar Person [facility] Note Date/Time November 08, 2024 1:58p m [facility] [address] [place] [id number] OFFICE VISIT Date of Service: 11/08/24 MR#: [id number] Acct: [id number] Name: ARTURO CORONADO Rep #: [id number] : 1945 Provider: Dr. Tristen Person MD Age/Sex: 79/M [place] [facility] [place] Status: Signed Intake Vital Signs 10/12/24 14:20 [...] Medications ?Medication ?Instructions ?Recorded ?Confirmed ?Type coenzyme Q80-[id number] 100 mg-20 1 ea PO DAILY 03/2511/08/24 [...] in the past year?: Yes [facility] Medical History Osteoarthritis of left knee Right shoulder strain Scabies Thyroid goiter Back pain due to injury Family history of colon cancer Seborrheic keratoses Cervical disc disease Cervical cord compression with myelopathy Painful neck Swallowing problem Chronic back pain Nonrheumatic mitral (valve) prolapse Essential (primary) hypertension Back pain Obstructive sleep apnea GERD (gastroesophageal reflux disease) Atherosclerosis of coronary artery of [place] heart without angina pectoris Hyperlipidemia Surgical History [...] by me, Dr. Edwar Person MD 11/08/24 2420. Part of today?s visit was documented by [...] Performing Provider: Edwar Person MD Performing Location: [facility] Administered by: Edwar Person MD on 11/08/24 13:41 Dose Route Admin Location Dispensed Lot Number Expiration Date NDC Server Systems Administrator 10 mg intra-articular left knee 2 mL [id number] 03/08/25 [address]-2 [facility] Coding Level of Care Code [...] ecchymosis, No erythema and No swelling 11/08/24 1057 <Electronically signed by Edwar maldonado MD> Date _ Edwar Person MD Cosigner Signature: Date (if applicable) CC: ~ [facility] Work Phone: Reason for referral (narrative)No reason for referral information availableWOhio State [facility] Hospital Work Phone: Assessments Diagnosis Multinodular goiter [...] Documents on File Type Date Recorded 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 Advance Directives and Living Will Documents on File Type Date Recorded 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 Advance Directives and Livin g Will 08/23/2020 12:38 PM Advance Directive Response Recorded Date/ Time Advance Directives No February 15, 2014 10:14am Living Will Yes July 04, 2020 1:11am Power of Physical Therapy Coordinator Yes July 04 1:11am Advance Directive Response Recorded Date/ Time Name of Medical Power of Physical Therapy Coordinator SHANTA MIDDLETON () October 17, 2021 2:40pm Advance Directives No February 15, 2014 10:14am Living Will Yes October 17, 2021 2:40pm Power of Physical Therapy Coordinator Yes October 17 2:40pm Advance Directive Response Recorded Date/ Time Name of Medical Power of Physical Therapy Coordinator SHANTA MIDDLETON () October 17, 2021 2:40pm Advance Directives on File No November 19, 2021 7:45am Advance Directives Yes November 19 7:45am Living Will Yes November 19, 2021 7:45am Power of Physical Therapy Coordinator Yes November 19 7:45am Advance Directive Response Recorded Date/ Time Name of Medical Power of Physical Therapy Coordinator SHANTA MIDDLETON () October 17, 2021 2:40pm Advance Directives on File No November 19, 2021 7:45am Name of Medical Power of Physical Therapy Coordinator --STEVE Obrien January 10, 2022 12:03am Advance Directives Yes November 19 7:45am Living Will Yes January 10 12:03am Power of Physical Therapy Coordinator Yes January 10, 2022 12:03am Advance Directive Response Recorded Date/ Time Name of Medical Power of Physical Therapy Coordinator --STEVE Obrien January 09, 2022 11:03pm Advance Directives Yes November 19 6:45am Living Will Yes January 09, 11:03pm Power of Physical Therapy Coordinator Yes January 09, 2022 11:03pm Advance Directive Response Recorded Date/ Time Advance Directives Yes November 19 7:45am Living Will No September 20, 2022 1 :14pm Power of Physical Therapy Coordinator No September 20, 2022 1:14pm Advance Directive Response Recorded Date/ Time Advance Directives Yes April 10, 2023 12:15pm Living Will No April 10 12:15pm Power of Physical Therapy Coordinator No April 10, 2023 12:15pm Advance Directive Response Recorded Date/ Time Advance Directives Yes May 21, 2023 12:39pm Living Will No May 21 12:39pm Power of Physical Therapy Coordinator No May 21, 2023 12:39pm Advance Directive Response Recorded Date/ Time Advance Directives Yes May 21, 2023 1:39pm Living Will No May 21 1:39pm Power of Physical Therapy Coordinator No May 21, 2023 1:39pm Advance Directive Response Recorded Date/ Time Living Will No May 21 1:39pm Power of Physical Therapy Coordinator No May 21, 2023 1:39pm Living Will No April 03 11:47am Power of Physical Therapy Coordinator No April 03, 2024 11:47am Advance Directives Yes October 01 1:34pm Advance Directive Response Recorded Date/ Time Living Will No May 21 1:39pm Do you have a Healthcare Power of Physical Therapy Coordinator? No May 21, 2023 1:39pm Living Will No April 03 11:47am Do you have a Healthcare Power of Physical Therapy Coordinator? No April 03, 2024 11:47am Advance Directives Yes October 01 1:34pm Advance Directive Response Recorded Date/ Time Living Will No May 21 1:39pm Do you have a Healthcare Power of Physical Therapy Coordinator? No May 21, 2023 1:39pm Advance Directives Yes October 01 1:34pm Advance Directive Response Recorded Date/ Time Advance Directives Yes October 01 1:34pm Advance Directive Response Recorded Date/ Time Do you have a Healthcare Power of Physical Therapy Coordinator? No January 12, 2025 9:40pm Advance Directives Yes October 01 1:34pm Advance Directive Response Recorded Date/ Time Do you have a Healthcare Power of Physical Therapy Coordinator? No January 14, 2025 3:33pm Do you have a Healthcare Power of Physical Therapy Coordinator? No January 12, 2025 9:40pm Advance Directives Yes October 01 1:34pm Advance Directive Response Recorded Date/ Time Do you have a Healthcare Power of Physical Therapy Coordinator? No January 14, 2025 7:24pm Do you have a Healthcare Power of Physical Therapy Coordinator? No January 12, 2025 9:40pm Advance Directives Yes October 01 1:34pm History of Present Illness * Jacqui Olivas, MARIPOSA - 08/24/2018 1:16 PM EDT Patient ID: Arturo Coronado is a 73 y.o. male Subjective: Arturo Coronado is a 73 y.o. male who returns to our office for follow up of: multinodular goiter. Patient status post FNA biopsy of bilateral nodules 11/15/11 at [facility]. Mr. Coronado is a 73-year-old male [...] doppler flow. 04/09/17 thyroid ultrasound performed at [facility] Comparison: 03/29/16 Right lobe: 1.5 x [...] CompletedPlease follow-up wi Primary Care Physician or Service Tech for treatment or adjustment of medication regarding [...] colon cancer Atherosclerosis of coronary artery of [place] heart without angina pectoris Essential (primary) hypertension Hyperlipidemia Nonrheumatic mitral (valve) prolapse Chief Complaint CONSTIPATION ISSUES RIGHT CTS RIGHT CTS 1 Y FU K UP BACK PAIN Reason for Visit Carpal tunnel syndro me of right wrist Constipation by delayed colonic transit Family history of colon cancer Atherosclerosis of coronary artery of [place] heart without angina pectoris Essential (primary) hypertension Hyperlipidemia Nonrheumatic mitral (valve) prolapse Carpal tunnel syndrome of right wrist Chief Complaint RIGHT CTS RIGHT CTS 1 Y FU K UP BACK PAIN [facility] 3 M FU E ORDER CORINARY ARTERY DISEASE, CHEST PAIN Reason for Visit Atherosclerosis of c oronary artery of [place] heart without angina pectoris Essential (primary) hypertension Hyperlipidemia Nonrheumatic mitral (valve) prolapse Carpal tunnel syndrome of right wrist Back pain due to injury Carpal tunnel syndrome of right wrist Rotator cuff injury Chest pain Essential (primary) hypertension Hyperlipidemia Nonrheumatic mitral (valve) prolapse Chief Complaint CHK UP BACK PAIN [facility] 3 M FU E ORDER CORINARY [...] ear Chief Complaint CHK UP BACK PAIN [facility] 3 M FU E ORDER CORINARY [...] 2024 2:14 pm Nonrheumatic mitral (valve) prolapse [facility] 2024 2:14pm History of coronary artery stent [...] 2024 2:14 pm Nonrheumatic mitral (valve) prolapse [facility] 2024 2:14pm History of coronary artery stent [...] 2024 2:14 pm Nonrheumatic mitral (valve) prolapse [facility] 2024 2:14pm History of coronary artery stent [...] 2024 2:14 pm Nonrheumatic mitral (valve) prolapse [facility] 2024 2:14pm History of coronary artery stent placeme nt July 07, 2024 2:14pm Knee pain, left July 21, 2024 3:1 2pm Chronic pruritus July 21, 2024 3:1 2pm Carpal tunnel syndrome of right wrist Ap [facility] 2024 10:41am Knee pain, left September 01, [...] of left knee November 01 025 1:37pm Chief Complaint Admit Date lft [...] left knee November 01 2 025 1:37pm Osteoarthritis of left knee [...] spasm January 14 4:36pm Situational depression January 14, 2 025 4:36pm Suicidal thoughts January 14, 2025 4:36pm 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 January 14, 2025 4:36pm Chief Complaint Admit Date RIGHT HAND October 12, 2024 2:14 pm LEFT KNEE October 25, 2024 1:33 pm LEFT KNEE November 01, 2024 1:37 pm EORDER November 06, 2024 9:52a m LEFT KNEE November 08, 2024 1:35p m 4 M FU November 10, 2024 2:42p m UNABLE TO PEE January 12, 2025 9:05pm TURP January 15, 2025 7:02pm Reason for Visit Admit Date Carpal tunnel syndrome of right wrist Ju 2024 2:14pm Knee pain, left October 12, 2024 2:14 pm Osteoarthritis of left knee October 12 2 025 2:14pm Osteoarthritis of left knee October 25 2 025 1:33pm Osteoarthritis of left knee November 01 025 1:37pm Osteoarthritis of left knee November 08 1:35pm Essential (primary) hypertension November 2:42pm Hyperlipidemia November 10, 2024 2:42p m Nonrheumatic mitral (valve) prolapse Nov 2:42pm History of coronary artery stent placeme nt November 10, 2024 2:42pm Antiplatelet or antithrombotic long-term use January 15, 2025 7:02pm Painful bladder spasm January 15 7:02pm Situational depression January 15 7:02pm Suicidal thoughts January 15, 2025 7:02pm 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 January 15, 2025 7:02pm Reason for Referral Specialty Diagnoses / Procedures Referred By Sharla t Referred To Contact Diagnoses Goiter, nontoxic, multinodular Procedures US Thyroid Only Bib Haque MD [address] [place] [address] Referral ID Status Reason Start Date Expiration Date V isits Requested Visits Authorized [id number] Authorized 07/08/2023 07/07/2024 1 1 Additional Source Comments (unrecognized sect ion and content) No Status Records FoundNo Status Records FoundNo Status Records FoundNo Status Records Found INFORMATION SOURCE (unrecogn ized section and content) DATE CREATED AUTHOR 05/01/2018 [facility] [place] DATE CREATED AUTHOR AUTHOR'S ORGANIZ ATION 08/11/2023 [facility] DATE CREATED AUTHOR AUTHOR'S ORGANIZ ATION [facility]20[facility] DATE CREATED AUTHOR AUTHOR'S ORGANIZ ATION 01/15/2025 [facility] Reason for Visit (unrecogniz ed section [...] Primary Care Provider, Referr ing Provider Active SEGUN Klein Attending Provider Active Team Status: Inactive Member Role Status Dates Dr. Gauri Vila , DO Primary Care Provider, Referr ing Provider Active SEGUN Krishnamurthy Attending Provider Active Team Status: Inactive Member Role Status Dates Dr. Gauri Vila , DO Primary Care Provider Active SEGUN Krishnamurthy Attending Provider, Referring Pr ovider Active Team Status: Inactive Member Role Status Dates Dr. Gauri Vila , DO Primary Care Provider, Referr ing Provider Active Dr. Cam Bucio , Attending Provider Active Team Status: Inactive Member Role Status Dates Dr. Gauri Vila DO Primary Care Provider, Referr ing Provider Active Dr. Adam Maloney MD Attending Provider Active Team Status: Inactive Member Role Status Dates Dr. Gauri Vila DO Primary Care Provider Active Dr. Adam Maloney MD Attending Provider, Referring Pro vider Active Joy Operator Helper Relationship Specialty Start Date End Date Gauri Vila DO [address] [place] [address] PCP - General Family Medicine 04/04/16 Team Status: Inactive Member Role Status Dates Dr. Gauri Vila DO Primary Care Provider Active Dr. Bib Haque MD Attending Provider, Referring Provider Active Team Status: Active Member Role Status Dates Dr. Gauri Vila DO Primary Care Provider Active Dr. Bib Haque MD Attending Provider, Referring Provider Active Joy Operator Helper Relationship Specialty Start Date End Date Gauri Vila DO [address] [place] [address] PCP - General Family Medicine 04/04/16 Joy Operator Helper Relationship Specialty Start Date End Date Gauri Vila DO [address] [place] [id number] PCP - General Family Medicine 04/03/24 Team [...] August 04, 2024 End: August 04, 2024 SEGUN Amador Attending Provider Active Start: August 04, 2024 [...] July 05, 2024 End: July 05, 2024 SEGUN Amador Attending Provider Active Start: July 05, 2024 [...] Provider Active Start: November 06, 2024 Carmen Garcia PA, PA Attending Provider Active Start: November 06, 2024 Carmen Garcia PA, PA [...] November 10, 2024 End: November 10, 2024 SEGUN Amador Attending Provider Active Start: November 10, 2024 [...] Attending Provider Active Start: January 14, 2025 Team Status: Inactive Member Role/Relationship Status Dates Dr. Gauri Vila DO Primary Care Provider Active Start: January 15, 2025 End: January 16, 2025 Dr. Saman Muniz MD Emergency Provider Active Sta rt: January 15, 2025 End: January 16, 2025 Dr. Spenser Winston MD Admit Provider Active Start: January 15, 2025 End: January 16, 2025 Dr. Spenser Winston MD Attending Provider Active Start: January 15, 2025 End: January 16, 2025 Source Comments (unrecognize d section and content) In the event this informatio n is protected by the Federal Confidentiality of Alcohol and Drug Abuse Patient Records regulations: The Federal rules restrict any use of the information to criminally investigate or prosecute any alcohol or drug abuse patient.[facility] FOR RECORDS PERTAINING TO PATIENTS WHO ARE [...] BE BASED ON THE PRIMARY CLINICAL RECORDS. [facility]. provides no warranty or guarantee of the accuracy or completeness of information in this document.
[2025-01-16 23:32] VITALS: BP 127/74; PULSE 78; RESP 16; TEMP 36.6; O2SAT 99
== END 2025-01-16 23:33 | disposition home or self-care (01) ==
LOC: ED 23:06
PROVIDERS: Emergency Provider Emergency Medicine; PCP Family Medicine; Visit Provider Emergency Medicine
DX: N40.1 Benign prostatic hyperplasia with lower urinary tract symptoms (principal); Z87.891 Personal history of nicotine dependence; M54.9 Dorsalgia, unspecified; Z82.49 Family history of ischemic heart disease and other diseases of the circulatory system; I25.10 Atherosclerotic heart disease of native coronary artery without angina pectoris; E78.5 Hyperlipidemia, unspecified; I10 Essential (primary) hypertension; R33.8 Other retention of urine; R10.9 Unspecified abdominal pain; Z95.5 Presence of coronary angioplasty implant and graft; Z80.0 Family history of malignant neoplasm of digestive organs; K21.9 Gastro-esophageal reflux disease without esophagitis; G47.33 Obstructive sleep apnea (adult) (pediatric)
CPT/HCPCS: 99282